=== PATIENT | male | born 1950 | race Two or more races ===

== ENCOUNTER 2020-07-30 06:29 | Outpatient (REF) | payer MEDICARE, SELFPAY ==
[2020-07-30 07:00] LABS: MANUAL DIFF FLAG NO
[2020-07-30 07:03] LABS: Basophils Percent Auto 0.5 % (0-2); Eosinophils Absolute Auto 0.3 X10*3/uL (0.0-0.4); Eosinophils Percent Auto 3.6 % (0-4); Hematocrit 38.8 % (42-52); Hemoglobin 12.6 g/dl (14.0-18.0); Imm Gran Abs Auto 0.01 X10*3/uL (0.00-0.03); Imm Gran Pct Auto 0.1 % (0.0-0.4); Lymphocytes Absolute Auto 2.8 X10*3/uL (1.2-4.9); Mean Corpuscular HGB Conc 32.5 g/dl (31.0-36.0); Mean Corpuscular Hemoglobin 27.8 pg (27.0-33.0); Mean Corpuscular Volume 85.7 fL (80-98); Mean Platelet Volume 11.2 fL (9.4-12.4); Monocytes Absolute Auto 0.9 X10*3/uL (0.1-1.2); Monocytes Percent Auto 11.9 % (2-11); Neutrophils Absolute Auto 3.7 X10*3/uL (2.0-8.3); Neutrophils Percent Auto 47.9 % (45-73); Platelet Count 292 X10*3/uL (160-400); Red Blood Count 4.53 X10*6/uL (4.60-5.80); White Blood Count 7.8 X10*3/uL (4.8-10.8)
[2020-07-30 07:38] LABS: Alanine Aminotransferase 19 U/L (0-40); Alkaline Phosphatase 104 U/L (39-117); Anion Gap 10 (12-20); Aspartate Amino Transferase 16 U/L (5-37); Bilirubin Total 0.4 mg/dL (0.0-1.0); Blood Urea Nitrogen 16 mg/dL (9-16); Calcium 9.2 mg/dL (8.4-10.2); Carbon Dioxide 27 mmol/L (22-29); Chloride 106 mmol/L (96-108); Cholesterol 119 mg/dL; Estimated Glomerular Filt Rate 53; Glucose Fasting 155 mg/dL (60-99); HDL Cholesterol 35 mg/dL; LDL Cholesterol Calculated 60 mg/dl; Potassium 4.2 mmol/l (3.3-5.1); Sodium 139 mmol/L (135-145); Total Protein 6.4 g/dL (6.5-8.0); Triglycerides 122 mg/dL
[2020-07-30 07:59] LABS: Creatinine Urine 168.19 mg/dL
== END 2020-07-30 06:30 | disposition home or self-care (01) ==
LOC: HO.LDS 06:29
PROVIDERS: PCP Internal Medicine; Visit Provider Internal Medicine
DX: E78.00 Pure hypercholesterolemia, unspecified (principal); E11.9 Type 2 diabetes mellitus without complications; J45.40 Moderate persistent asthma, uncomplicated
CPT/HCPCS: 36415; 80053; 80061; 82043; 85025

== ENCOUNTER 2020-09-11 20:55 | Emergency (ER) | payer MEDICARE, SELFPAY ==
[2020-09-11 20:59] VITALS: BP 186/86; PULSE 73; RESP 16; TEMP 36.5; O2SAT 98; BMI 30.2
--- NOTE | 2020-09-11 21:19 | ED.MALEGU ---
HPI - Male Genitourinary General Chief complaint: Urogenital-Male Stated complaint: Genital Discomfort Time Seen by Provider: 09/11/20 21:09 History of Present Illness HPI Narrative: Patient is a 70-year-old male presents today with having pain and itchiness in his penis the last few days. Patient is not sexually active. He does have a history of diabetes. He did not have a circumcision. Patient is from home. No fever no chills no cough no congestion no pain on urination or systemic complaints. Related Data Home Medications Medication Instructions Recorded Confirmed albuterol sulfate 90 mcg/actuation 1 puff INHALATION Q4H PRN g 08/06/20 08/06/20 aerosol inhaler atorvastatin 40 mg tablet 40 mg PO DAILY 08/06/20 08/06/20 fluticasone propionate 100 1 inh INHALATION BID 08/06/20 08/06/20 mcg/actuation blister powder for inhalation glipizide 5 mg tablet 10 mg PO BID tab 08/06/20 08/06/20 losartan 25 mg tablet 25 mg PO DAILY 08/06/20 08/06/20 metformin 500 mg tablet 500 mg PO BID 08/06/20 08/06/20 metoprolol succinate 100 mg 100 mg PO DAILY 08/06/20 08/06/20 tablet,extended release 24 hr Previous Rx's Medication Instructions Recorded insulin glargine U-300 conc 300 45 unit SUBCUT BID 30 Days #9 ml 08/24/20 unit/mL (3 mL) subcutaneous pen clotrimazole [Antifungal 1 applic TOPICAL BID 14 Days #15 g 09/11/20 (clotrimazole)] Allergies Allergy/AdvReac Type Severity Reaction Status Date / Time No Known Allergies Allergy Verified 08/06/20 10:40 [No Known Allergies*] Review of Systems Review of Systems: Constitutional: No Weight loss, No Fever, No Chills, No Night Sweats, No Fatigue, No Malaise ENT/Mouth: No Hearing loss, No Ear Pain, No Nasal Congestion, No Sinus Pain, No Hoarseness, No sore throat, No Rhinorrhea, No Swallowing Difficulty Eyes: No Eye Pain, No Swelling, No Redness, No Foreign Body, No Discharge, No Vision Changes Cardiovascular: No Chest Pain, No SOB, No Dyspnea on Exertion, No Orthopnea, No Edema, No Palpitations Respiratory: No Cough, No Sputum, No Wheezing, No Smoke Exposure, No Dyspnea Gastrointestinal: No Nausea, No Vomiting, No Diarrhea, No Constipation, No abdominal Pain, No Hematochezia, No Melena Genitourinary: no irregular bleeding, No Dysuria, No Urinary Frequency, No Hematuria, No Urinary Incontinence, No Urgency, No Flank Pain, No Urinary Flow Changes, No Hesitancy Musculoskeletal: No joint pain, No Myalgias, No Joint Swelling Skin: No Skin Lesions, No rash Neuro: No Weakness, No Numbness, No Paresthesias, No Loss of Consciousness, No Dizziness, No Headache Psych: No Anxiety/Panic, No Depression, No SI/HI/AH/VH, No Social Issues, Heme/Lymph: No Bruising, No Bleeding,No Lymphadenopathy Endocrine: No Polyuria, No Polydipsia, No Temperature Intolerance Yes all other systems are reviewed and are negative [facility] Past Medical History Attestation statement: The following information was validated with the patient. 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 Oriented X3. No acute distress. Eyes: Pupils equal, round and reactive to light. ENT: Pharynx normal. Neck: Normal inspection. Neck supple. No lymph nodes noted. No crepitus CVS: Normal heart rate and rhythm. Pulses normal. Normal S1 and S2 Respiratory: No respiratory distress. Breath sounds normal. No Wheezing. No rales Abdomen: Soft and nontender. No rigidity. No distention. good BS x4 Skin: Skin warm and dry. Normal skin color. Normal skin turgor. Extremities: No lower extremity edema. Neurovascular intact to all extremities. No Lacerations. No Rash Neuro: Oriented X 3. No motor deficit. No sensory deficit. Moving all extermities. No slurred speech : the skin around the penis is moist. With a whitish discharge. Unable to retract the foreskin completely. MDM - Male Genitourinary MDM Narrative Medical decision making narrative: Patient most likely have balance Perez secondary to being on circumcise and also diabetic. Will ask patient to clean the area well. Use Anti fungal cream. close follow-up with primary physician as needed Discharge Plan Discharge Clinical Impression: Balanitis Patient Disposition: Home, Self-Care Instructions: Balanitis (ED) Prescriptions: New clotrimazole [Antifungal (clotrimazole)] 1 % cream 1 applic topical BID 14 Days Qty: 15 RF: 0 No Action insulin glargine U-300 conc [Toujeo Max U-300 SoloStar] 300 unit/mL (3 mL) insulin pen 45 unit subcut BID 30 Days Qty: 9 RF: 11 glipizide 5 mg tablet 10 mg PO BID RF: 0 atorvastatin 40 mg tablet 40 mg PO DAILY RF: 0 metformin 500 mg tablet 500 mg PO BID RF: 0 metoprolol succinate 100 mg tablet extended release 24 hr 100 mg PO DAILY RF: 0 losartan 25 mg tablet 25 mg PO DAILY RF: 0 albuterol sulfate [Ventolin HFA] 90 mcg/actuation HFA aerosol inhaler 1 puff inhalation Q4H PRNRF: 0 Flovent Diskus 100 mcg/actuation blister with device 1 inh inhalation BID RF: 0 Referrals: Rose Mary Jones MD [Primary Care Provider] - 2 days Print Language: Nigerian
== END 2020-09-11 21:46 | disposition home or self-care (01) ==
PROVIDERS: Emergency Provider Emergency Medicine Emergency Medical Services; PCP Internal Medicine
DX: N48.1 Balanitis (principal); N50.819 Testicular pain, unspecified; Z79.899 Other long term (current) drug therapy; Z87.891 Personal history of nicotine dependence
CPT/HCPCS: 99283

== ENCOUNTER 2020-10-15 14:06 | Outpatient (REF) | payer MEDICARE, SELFPAY ==
--- NOTE | 2020-10-15 | US_ITS ---
EXAMINATION: US RETROPERITONEAL LIMITED (RENAL ONLY) CLINICAL INFORMATION: Chronic kidney disease stage III. COMPARISON: Abdominal ultrasound 04/19/2017. TECHNIQUE: Real-time imaging of the kidneys. FINDINGS: RIGHT KIDNEY: 11.5 x 5.3 x 5.7 cm (SAG x AP x TRV). The kidney is normal in size, contour, and echogenicity. Renal cortical thickness is normal. No renal calculi or hydronephrosis. There are several anechoic cysts seen. A lower pole lateral cortex cyst measures 1.7 x 1.5 x 1.5 cm. A midpole medial cyst measures 1.9 x 1.0 x 1.2 cm. A lateral midpole cyst measures 0.6 x 0.5 x 0.6 cm. LEFT KIDNEY: 10.3 x 4.8 x 5.4 cm (SAG x AP x TRV). The kidney is normal in size, contour, and echogenicity. Renal cortical thickness is normal. No renal calculi or hydronephrosis. There is anechoic cyst in the midpole measuring 1.5 x 1.2 x 1.0 cm. US/US renal BI IMPRESSION: 1. Bilateral renal cysts. 2. There are no echogenic bilateral stones or hydronephrosis.
== END 2020-10-15 14:07 | disposition home or self-care (01) ==
LOC: HO.US 14:06
PROVIDERS: Visit Provider Internal Medicine Hypertension Specialist
DX: N18.30 Chronic kidney disease, stage 3 unspecified (principal); R80.9 Proteinuria, unspecified
CPT/HCPCS: 76775

== ENCOUNTER 2020-10-23 08:12 | Outpatient (REF) | payer MEDICARE, SELFPAY ==
[2020-10-23 09:43] LABS: MANUAL DIFF FLAG NO
[2020-10-23 09:46] LABS: Creatinine, mg/dL 128.44; Protein mg/dL 17 mg/dL
[2020-10-23 10:05] LABS: Basophils Percent Auto 0.5 % (0-2); Eosinophils Absolute Auto 0.2 X10*3/uL (0.0-0.4); Eosinophils Percent Auto 2.2 % (0-4); Hematocrit 41.7 % (42-52); Hemoglobin 13.2 g/dl (14.0-18.0); Imm Gran Abs Auto 0.02 X10*3/uL (0.00-0.03); Imm Gran Pct Auto 0.3 % (0.0-0.4); Lymphocytes Absolute Auto 3.7 X10*3/uL (1.2-4.9); Lymphocytes Percent Auto 48.4 % (20-40); Mean Corpuscular HGB Conc 31.7 g/dl (31.0-36.0); Mean Corpuscular Hemoglobin 27.7 pg (27.0-33.0); Mean Corpuscular Volume 87.6 fL (80-98); Mean Platelet Volume 11.9 fL (9.4-12.4); Monocytes Absolute Auto 0.8 X10*3/uL (0.1-1.2); Monocytes Percent Auto 10.1 % (2-11); Neutrophils Absolute Auto 2.9 X10*3/uL (2.0-8.3); Neutrophils Percent Auto 38.5 % (45-73); Platelet Count 291 X10*3/uL (160-400); Red Blood Count 4.76 X10*6/uL (4.60-5.80); Red Cell Distribution Width 14.2 % (11.0-16.0); White Blood Count 7.6 X10*3/uL (4.8-10.8)
[2020-10-23 10:27] LABS: Glucose Urine UA 250 MG/DL (NEG); Leukocyte Esterase Urine NEG (NEG); Nitrite Urine NEG (NEG); Specific Gravity - Urine 1.015 (1.005-1.025); Urine Blood NEG (NEG); Urine Ketones NEG (NEG); Urine Protein NEG (NEG-TRACE)
[2020-10-23 10:36] LABS: Albumin Level 4.2 g/dL (3.5-5.0); Anion Gap 12 (12-20); Blood Urea Nitrogen 13 mg/dL (9-16); Calcium 9.6 mg/dL (8.4-10.2); Carbon Dioxide 27 mmol/L (22-29); Chloride 103 mmol/L (96-108); Estimated Glomerular Filt Rate 51; Potassium 4.9 mmol/l (3.3-5.1); Sodium 137 mmol/L (135-145)
[2020-10-23 10:45] LABS: Creatinine Urine 75.41 mg/dL; Protein/Creatinine Ratio, Ur 0.27 (<0.2); Total Protein Urine Random 20 mg/dL (<12)
[2020-10-23 10:46] LABS: Appearance Urine CLEAR; Color Urine YELLOW
[2020-10-23 13:03] LABS: Creatinine (CrCl) 1.38 mg/dL (0.5-1.4)
[2020-10-23 13:04] LABS: Creatinine Clearance 74.3 mL/min (85-125); Creatinine, 24Hr Urine 1.5 G/Day (1.0-2.0); Protein 24 Hr Urine 196 mg/Day (<150); Total Volume 24 Hour Urine 1150 mL
[2020-10-24 22:27] LABS: Urea, 24 Hr Urine 8 g/24 h (6-17)
[2020-10-27 14:08] LABS: Calcium (PTHI) 9.9 mg/dL (8.6-10.3); PTHI 71 pg/mL (14-64)
== END 2020-10-23 08:13 | disposition home or self-care (01) ==
LOC: HO.LAB 08:12
PROVIDERS: PCP Internal Medicine; Visit Provider Internal Medicine Hypertension Specialist
DX: I12.9 Hypertensive chronic kidney disease with stage 1 through stage 4 chronic kidney disease, or unspecified chronic kidney disease (principal); N18.30 Chronic kidney disease, stage 3 unspecified; R80.9 Proteinuria, unspecified
CPT/HCPCS: 36415; 80051; 81003; 82040; 82310; 82565; 82575; 83735; 83970; 84156; 84520; 84540; 85025

== ENCOUNTER 2020-12-02 06:00 | Outpatient (REF) | payer MEDICARE, SELFPAY ==
[2020-12-02 07:46] LABS: Creatinine Urine 129.54 mg/dL; Microalbum/Creatinine Ratio Ur 65.6 ug/mg cr
[2020-12-02 07:52] LABS: Alanine Aminotransferase 18 U/L (0-40); Alkaline Phosphatase 115 U/L (39-117); Anion Gap 15 (12-20); Aspartate Amino Transferase 16 U/L (5-37); Bilirubin Total 0.4 mg/dL (0.0-1.0); Blood Urea Nitrogen 17 mg/dL (9-16); Carbon Dioxide 25 mmol/L (22-29); Chloride 104 mmol/L (96-108); Cholesterol 138 mg/dL; Estimated Glomerular Filt Rate 54; Glucose Fasting 166 mg/dL (60-99); HDL Cholesterol 39 mg/dL; LDL Cholesterol Calculated 77 mg/dl; Potassium 4.7 mmol/L (3.3-5.1); Sodium 139 mmol/L (135-145); Total Protein 6.6 g/dL (6.5-8.0); Triglycerides 112 mg/dL
== END 2020-12-02 06:01 | disposition home or self-care (01) ==
LOC: HO.LAB 06:00
PROVIDERS: Visit Provider Internal Medicine
DX: R80.9 Proteinuria, unspecified (principal); E78.00 Pure hypercholesterolemia, unspecified; E11.29 Type 2 diabetes mellitus with other diabetic kidney complication; Z79.4 Long term (current) use of insulin
CPT/HCPCS: 36415; 80053; 80061; 82043

== ENCOUNTER 2021-04-01 06:26 | Outpatient (REF) | payer MEDICARE, SELFPAY ==
[2021-04-01 07:53] LABS: MANUAL DIFF FLAG NO
[2021-04-01 08:09] LABS: Estimated Average Glucose 235 mg/dL; Hemoglobin A1c % 9.8 %
[2021-04-01 08:11] LABS: Basophils Percent Auto 0.3 % (0-2); Eosinophils Absolute Auto 0.2 X10*3/uL (0.0-0.4); Eosinophils Percent Auto 3.7 % (0-4); Hematocrit 41.5 % (42-52); Hemoglobin 13.2 g/dl (14.0-18.0); Imm Gran Abs Auto 0.01 X10*3/uL (0.00-0.03); Imm Gran Pct Auto 0.2 % (0.0-0.4); Lymphocytes Absolute Auto 2.3 X10*3/uL (1.2-4.9); Lymphocytes Percent Auto 36.9 % (20-40); Mean Corpuscular HGB Conc 31.8 g/dl (31.0-36.0); Mean Corpuscular Hemoglobin 27.3 pg (27.0-33.0); Mean Corpuscular Volume 85.7 fL (80-98); Mean Platelet Volume 11.9 fL (9.4-12.4); Monocytes Absolute Auto 0.7 X10*3/uL (0.1-1.2); Monocytes Percent Auto 11.8 % (2-11); Neutrophils Percent Auto 47.1 % (45-73); Platelet Count 200 X10*3/uL (160-400); Red Blood Count 4.84 X10*6/uL (4.60-5.80); Red Cell Distribution Width 14.1 % (11.0-16.0); White Blood Count 6.3 X10*3/uL (4.8-10.8)
[2021-04-01 08:26] LABS: Creatinine Urine 165.54 mg/dL; Microalbum/Creatinine Ratio Ur 42.2 ug/mg cr
[2021-04-01 08:33] LABS: Alanine Aminotransferase 13 U/L (0-40); Albumin Level 4.1 g/dL (3.5-5.0); Alkaline Phosphatase 121 U/L (39-117); Anion Gap 10 (12-20); Aspartate Amino Transferase 15 U/L (5-37); Bilirubin Total 0.4 mg/dL (0.0-1.0); Blood Urea Nitrogen 20 mg/dL (9-16); Calcium 9.5 mg/dL (8.4-10.2); Carbon Dioxide 28 mmol/L (22-29); Chloride 106 mmol/L (96-108); Cholesterol 138 mg/dL; Estimated Glomerular Filt Rate 53; Glucose Fasting 122 mg/dL (60-99); HDL Cholesterol 42 mg/dL; LDL Cholesterol Calculated 71 mg/dl; Potassium 4.4 mmol/L (3.3-5.1); Sodium 140 mmol/L (135-145); Total Protein 6.6 g/dL (6.5-8.0); Triglycerides 127 mg/dL
[2021-04-02 09:52] LABS: Calcium, Ionized 5.1 mg/dL (4.8-5.6)
[2021-04-04 22:36] LABS: Parathyroid Hormone Related Pr 14 pg/mL (14-27)
== END 2021-04-01 06:27 | disposition home or self-care (01) ==
LOC: HO.LAB 06:26
PROVIDERS: Nurse Practitioner Family; PCP Internal Medicine; Visit Provider Internal Medicine
DX: Z00.00 Encounter for general adult medical examination without abnormal findings (principal); E21.3 Hyperparathyroidism, unspecified; E11.29 Type 2 diabetes mellitus with other diabetic kidney complication; E11.40 Type 2 diabetes mellitus with diabetic neuropathy, unspecified; R80.9 Proteinuria, unspecified; E78.5 Hyperlipidemia, unspecified; Z79.4 Long term (current) use of insulin
CPT/HCPCS: 36415; 80053; 80061; 82043; 82330; 83036; 83519; 85025

== ENCOUNTER 2021-08-31 07:29 | Outpatient (REF) | payer MEDICARE, SELFPAY ==
--- NOTE | ~2021-08-31 | US_ITS ---
EXAMINATION: US RETROPERITONEAL LIMITED (AORTA) CLINICAL INFORMATION: History of nicotine dependence.. COMPARISON: Abdominal ultrasound 04/19/[address] abdomen pelvis 05/05/2016 TECHNIQUE: Cervantes-scale, color Doppler and spectral Doppler evaluation of the abdominal aorta. FINDINGS: Scattered atherosclerotic disease. The measurements of the aorta in maximum AP and transverse dimensions respectively are as follows: Proximal: 2.3 x 2.4 cm. Mid: 2.1 x 1.9 cm. Distal: 1.5 x 1.8 cm. The measurements of the common iliac arteries in maximum AP and TRV dimensions are as follows: Right Common Iliac Artery: 1.1 x 1.3 cm. Left Common Iliac Artery: 1.2 x 1.0 cm. US/US abdominal aortic aneurysm IMPRESSION: Normal caliber abdominal aorta by sonographic evaluation.
== END 2021-08-31 07:30 | disposition home or self-care (01) ==
LOC: HO.US 07:29
PROVIDERS: PCP Internal Medicine; Visit Provider Internal Medicine
DX: Z87.891 Personal history of nicotine dependence (principal)
CPT/HCPCS: 76706

== ENCOUNTER 2021-11-15 18:09 | Emergency (ER) | payer MEDICARE, SELFPAY ==
--- NOTE | 2021-11-15 18:22 | ED.EAR ---
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 No fevers, chills, vomiting, headache, sore throat or runny nose. Related Data Home Medications Medication Instructions Recorded Confirmed albuterol sulfate 90 mcg/actuation 1 puff INHALATION Q4H PRN g 08/06/20 08/04/21 aerosol inhaler (Ventolin HFA) fluticasone propionate 100 1 inh INHALATION BID 08/06/20 08/04/21 mcg/actuation blister powder for inhalation (Flovent Diskus) glipizide 5 mg tablet 10 mg PO BID tab 08/06/20 08/04/21 Previous Rx's Medication Instructions Recorded clotrimazole 1 % topical cream 1 applic TOPICAL BID 14 Days #15 g 09/11/20 (Antifungal (clotrimazole)) blood sugar diagnostic (Accu-Chek 1 strip MISCELLANEOUS BID 90 Days 09/23/20 Faustina Plus test strp) #200 strip metformin 850 mg tablet 850 mg PO BID 90 Days #180 tab 12/08/20 atorvastatin 40 mg tablet 40 mg PO DAILY #90 tab 01/07/21 metoprolol succinate 100 mg 100 mg PO DAILY #90 tab 01/07/21 tablet,extended release 24 hr losartan 25 mg tablet 25 mg PO DAILY #90 tab 04/06/21 insulin glargine U-300 conc 300 48 unit (0.16 mL) SUBCUT BID 30 08/04/21 unit/mL (3 mL) subcutaneous pen Days #9.6 ml (Toujeo Max U-300 SoloStar) amoxicillin 875 mg-potassium 1 tab PO BID #14 tab 11/15/21 clavulanate 125 mg tablet (Augmentin) ciprofloxacin 0.3 %-dexamethasone 4 drp OTIC (EARS) BID 7 Days #7.5 11/15/21 0.1 % ear drops,suspension ml (Ciprodex) Allergies Allergy/AdvReac Type Severity Reaction Status Date / Time No Known Allergies Allergy Verified 08/04/21 09:15 [No Known Allergies*] Review of Systems Review of Systems: Yes all other systems are reviewed and are negative Constitutional: Constitutional: Reports no additional constitutional complaints, Denies body ache(s), Denies chills, Denies fever(s), Denies headache(s) and Denies weakness Eyes: Eyes: Reports no additional eye complaints and Denies change in vision ENT: Reports system reviewed and no additional complaints, except as documented, Denies dizziness, Reports ear discharge, Reports otalgia, Denies headache(s), Denies nasal congestion, Denies nasal discharge and Denies neck pain Cardiovascular: Cardiovascular: Reports no additional cardiovascular complaints, Denies chest pain, Denies leg edema and Denies dyspnea Respiratory: Respiratory: Reports no additional respiratory complaints, Denies cough and Denies dyspnea Gastrointestinal: Gastrointestinal: Reports no additional gastrointestinal complaints, Denies abdominal pain, Denies diarrhea, Denies nausea and Denies vomiting Genitourinary: Genitourinary: Denies urinary incontinence Musculoskeletal: Musculoskeletal: Reports no additional musculoskeletal complaints, Denies back pain, Denies arthralgias, Denies joint swelling, Denies neck pain, Denies numbness and Denies tingling Integumentary/Breasts: Skin/Breast: Reports system reviewed and no additional complaints, except as docu and Denies rash Neurologic: Reports system reviewed and no additional complaints, except as documented, Denies Abnormal speech present, Denies dizziness, Denies headache(s), Denies numbness, Denies tingling and Denies weakness PMFSH Past Medical History Attestation statement: The following information was validated with the patient. 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 Son No problems noted. Son No problems noted. Son No problems noted. Social History Social History Housing: House Alcohol intake: former Patient Tobacco Use Status: Former Tobacco user Tobacco use type: Cigarette e-Cigarette/Vaping Use: Never Used Second Hand Smoke Exposure: No Advance Directives Date on File: 07/30/20 service: No Current occupational status: retired Physical Exam Vital Signs: Vital Signs: Last Vital Signs Temp 98.4 F 11/15/21 18:24 Pulse 77 11/15/21 18:24 Resp 17 11/15/21 18:24 BP 182/78 H 11/15/21 18:24 Pulse Ox 98 11/15/21 18:24 BMI result Body Mass Index 29.1 Const: General: cooperative, healthy appearing, comfortable and no acute distress Orientation/consciousness: patient oriented x3 Limitations: no limitations HENMT: Head: Yes normal to inspection Ears: hearing grossly normal bilaterally, TM normal on the right, mastoids normal, no periauricular adenopathy, Abnormal EAC present (Erythema, swelling in the canal) and TM abnormal (Left TM with bulging,, loss of landmarks, effusion fusion) General nose exam: Normal external nose present Face and sinus: Yes normal facial exam Mouth: Normal oral and palatal mucosa present Throat: Yes posterior oropharynx normal Eyes: General: appearance normal, both eyes and all related structures Pupils: Equal, round and reactive pupils present Neck: Neck: Yes normal visual inspection, Yes full ROM, Yes no lymphadenopathy and Yes no meningeal signs Chest: Chest palpation & inspection: normal inspection of the chest Resp: Effort & Inspection: normal respiratory effort Auscultation: clear to auscultation bilaterally Cardio: Rate: regular rate Rhythm: regular rhythm Peripheral pulses: Peripheral pulses 2+ throughout GI: Inspection: Yes normal to inspection Palpation (GI): Soft to palpation and nontender Auscultation: normal bowel sounds Back/Spine/Pelvis: Thoracic/Lumbar Spine: thoracic and lumbar spine normal to inspection Skin: General skin exam: no rashes or lesions noted Neuro: General: patient oriented x3, no meningeal signs, no focal motor deficits and normal sensation to monofilament Cranial nerves: Yes Equal, round and reactive pupils present Cognition (Neuro): normal cognition Speech: No Abnormal speech present Gait exam (Neuro): Normal gait present Motor exam (neuro): 5/5 motor strength present throughout Extrem: General: Yes normal to inspection Course Course Course Narrative: 71-year-old male here with reports of left ear pain with drainage with waking. NO mastoid tenderness. No lymphadenopathy. Exam is consistent with both otitis externa and media. Will treat with course of antibiotics and antibiotic drops. Reviewed worrisome signs and symptoms when to return to the emergency department. Comfortable discharge home. MDM - Ear Differential Diagnosis Differential diagnosis: Likely otitis externa and otitis media Medical Records Attestation: I reviewed the patient's medical records. Lab Data Attestation: I reviewed the patient's lab results. Discharge Plan Discharge Clinical Impression: Otitis externa, Otitis media Patient Disposition: Home, Self-Care Instructions: Otitis Externa (ED), How to Use Ear Drops (ED), Ear Infection (ED) Additional Instructions: Return for fever, swelling or pain behind the ear Start antibiotics today When using the ear drops lay your head on the unaffected side and allow the drops to sit in ear for 15 minutes before sitting up Prescriptions: New amoxicillin-pot clavulanate [Augmentin] 875-125 mg tablet 1 tab PO BID Qty: 14 RF: 0 ciprofloxacin-dexamethasone [Ciprodex] 0.3-0.1 % drops,suspension 4 drp otic (ears) BID 7 Days Qty: 7.5 RF: 0 No Action blood sugar diagnostic [Accu-Chek Faustina Plus test strp] Strip 1 strip miscellaneous BID 90 Days Qty: 200 RF: 2 atorvastatin 40 mg tablet 40 mg PO DAILY Qty: 90 RF: 3 metoprolol succinate 100 mg tablet extended release 24 hr 100 mg PO DAILY Qty: 90 RF: 3 losartan 25 mg tablet 25 mg PO DAILY Qty: 90 RF: 3 clotrimazole [Antifungal (clotrimazole)] 1 % cream 1 applic topical BID 14 Days Qty: 15 RF: 0 glipizide 5 mg tablet 10 mg PO BID RF: 0 albuterol sulfate [Ventolin HFA] 90 mcg/actuation HFA aerosol inhaler 1 puff inhalation Q4H PRNRF: 0 Flovent Diskus 100 mcg/actuation blister with device 1 inh inhalation BID RF: 0 metformin 850 mg tablet 850 mg PO BID 90 Days Qty: 180 RF: 3 Toujeo Max U-300 SoloStar 300 unit/mL (3 mL) insulin pen 48 unit subcut BID 30 Days Qty: 9.6 RF: 11 Referrals: Rose Mary Jones MD [Primary Care Provider] - 2 days Print Language: Albanian
[2021-11-15 18:24] VITALS: BP 182/78; PULSE 77; RESP 17; TEMP 36.9; O2SAT 98; BMI 29.1
== END 2021-11-15 18:48 | disposition home or self-care (01) ==
LOC: HO.ED 18:46
PROVIDERS: Emergency Provider Internal Medicine; PCP Internal Medicine
DX: H66.92 Otitis media, unspecified, left ear (principal); H60.92 Unspecified otitis externa, left ear; Z87.891 Personal history of nicotine dependence; Z79.899 Other long term (current) drug therapy
CPT/HCPCS: 99283

== ENCOUNTER 2021-11-25 07:17 | Outpatient (REF) | payer MEDICARE, SELFPAY ==
[2021-11-25 07:39] LABS: MANUAL DIFF FLAG NO
[2021-11-25 08:02] LABS: Basophils Percent Auto 0.5 % (0-2); Eosinophils Absolute Auto 0.3 X10*3/uL (0.0-0.4); Eosinophils Percent Auto 4.3 % (0-4); Hematocrit 40.5 % (42.0-52.0); Hemoglobin 13.2 g/dl (14.0-18.0); Imm Gran Abs Auto 0.02 X10*3/uL (0.00-0.03); Imm Gran Pct Auto 0.3 % (0.0-0.4); Lymphocytes Absolute Auto 2.5 X10*3/uL (1.2-4.9); Lymphocytes Percent Auto 32.5 % (20-40); Mean Corpuscular HGB Conc 32.6 g/dl (31.0-36.0); Mean Corpuscular Hemoglobin 27.7 pg (27.0-33.0); Mean Corpuscular Volume 84.9 fL (80.0-98.0); Mean Platelet Volume 11.1 fL (9.4-12.4); Monocytes Absolute Auto 0.9 X10*3/uL (0.1-1.2); Monocytes Percent Auto 12.4 % (2-11); Neutrophils Absolute Auto 3.8 x10*3/uL (2.0-8.3); Platelet Count 293 X10*3/uL (160-400); Red Blood Count 4.77 X10*6/uL (4.60-5.80); Red Cell Distribution Width 13.8 % (11.0-16.0); White Blood Count 7.6 X10*3/uL (4.8-10.8)
[2021-11-25 08:40] LABS: Creatinine Urine 148.18 mg/dL; Microalbum/Creatinine Ratio Ur 103.9 ug/mg cr
[2021-11-25 09:00] LABS: Alanine Aminotransferase 15 U/L (0-40); Alkaline Phosphatase 116 U/L (39-117); Anion Gap 9 (12-20); Aspartate Amino Transferase 14 U/L (5-37); Bilirubin Total 0.5 mg/dL (0.0-1.0); Blood Urea Nitrogen 15 mg/dL (9-16); Carbon Dioxide 29 mmol/L (22-29); Chloride 106 mmol/L (96-108); Cholesterol 126 mg/dL; Estimated Glomerular Filt Rate 52; Glucose Fasting 205 mg/dL (60-99); HDL Cholesterol 35 mg/dL; Iron 50 mcg/dL (45-160); LDL Cholesterol Calculated 68 mg/dl; Percent Iron Saturation 19 % (15-50); Potassium 4.8 mmol/L (3.3-5.1); Sodium 139 mmol/L (135-145); Total Iron Binding Capacity 259 mcg/dL (228-428); Total Protein 6.5 g/dL (6.5-8.0); Triglycerides 117 mg/dL; Unsaturated Iron Binding 209 ug/dL
[2021-11-29 16:06] LABS: Vitamin D 25-OH, D2 <4 ng/mL; Vitamin D 25-OH, D3 22 ng/mL; Vitamin D 25-OH, Total 22 ng/mL (30-100)
== END 2021-11-25 07:18 | disposition home or self-care (01) ==
LOC: HO.LAB 07:17
PROVIDERS: PCP Internal Medicine; Visit Provider Internal Medicine
DX: E55.9 Vitamin D deficiency, unspecified (principal); E11.9 Type 2 diabetes mellitus without complications; E78.5 Hyperlipidemia, unspecified; D64.9 Anemia, unspecified; I25.10 Atherosclerotic heart disease of native coronary artery without angina pectoris
CPT/HCPCS: 36415; 80053; 80061; 82043; 82306; 83540; 85025

== ENCOUNTER 2021-12-22 16:39 | Emergency (ER) | payer MEDICARE, SELFPAY ==
--- NOTE | ~2021-12-22 | XR_ITS ---
EXAMINATION: PORTABLE CHEST 1 VIEW CLINICAL INFORMATION: cp . COMPARISON: 04/20/2017. TECHNIQUE: Portable frontal view of the chest was obtained. FINDINGS: The lungs are well expanded. No focal infiltrate, effusion, edema, or pneumothorax. Cardiac and mediastinal silhouettes are within normal limits for technique. Degenerative changes in the spine and shoulders. No acute bony abnormality seen. XR/XR chest 1V IMPRESSION: No evidence of acute disease.
[2021-12-22 16:48] VITALS: BP 191/93; PULSE 75; RESP 18; TEMP 36.8; O2SAT 98; BMI 28.4
--- NOTE | 2021-12-22 16:52 | ECG_ITS ---
Test Reason : chest pain Blood Pressure : / mmHG Vent. Rate : 076 BPM Atrial Rate : 076 BPM P-R Int : 146 ms QRS Dur : 086 ms QT Int : 358 ms P-R-T Axes : 046 013 076 degrees QTc Int : 402 ms Normal sinus rhythm Nonspecific T wave abnormality Cannot rule out inferior infarct Abnormal ECG When compared with ECG of 20-APR-2017 03:18, No significant change was found Referred By: Generic ED Physician Electronically Signed By:Catracho Valencia
[2021-12-22 17:14] LABS: MANUAL DIFF FLAG NO
[2021-12-22 17:17] LABS: Basophils Percent Auto 0.4 % (0-2); Eosinophils Absolute Auto 0.3 X10*3/uL (0.0-0.4); Eosinophils Percent Auto 2.3 % (0-4); Hematocrit 39.8 % (42.0-52.0); Imm Gran Abs Auto 0.02 X10*3/uL (0.00-0.03); Imm Gran Pct Auto 0.2 % (0.0-0.4); Lymphocytes Absolute Auto 2.8 X10*3/uL (1.2-4.9); Lymphocytes Percent Auto 26.5 % (20-40); Mean Corpuscular HGB Conc 32.7 g/dl (31.0-36.0); Mean Corpuscular Volume 85.6 fL (80.0-98.0); Mean Platelet Volume 10.9 fL (9.4-12.4); Monocytes Absolute Auto 0.9 X10*3/uL (0.1-1.2); Monocytes Percent Auto 8.7 % (2-11); Neutrophils Absolute Auto 6.6 x10*3/uL (2.0-8.3); Neutrophils Percent Auto 61.9 % (45-73); Platelet Count 281 X10*3/uL (160-400); Red Blood Count 4.65 X10*6/uL (4.60-5.80); Red Cell Distribution Width 14.2 % (11.0-16.0); White Blood Count 10.7 X10*3/uL (4.8-10.8)
[2021-12-22 17:35] LABS: COVID-19 Test Negative (Negative); IDNOW Serial# 16C4AD1C
[2021-12-22 17:35] LABS: IDNOW Serial# 55D5AD1C; Strep A Nucleic Acid Negative (Negative)
[2021-12-22 17:38] LABS: Alanine Aminotransferase 13 U/L (0-40); Albumin Level 3.9 g/dL (3.5-5.0); Alkaline Phosphatase 109 U/L (39-117); Anion Gap 10 (12-20); Aspartate Amino Transferase 14 U/L (5-37); Bilirubin Total 0.4 mg/dL (0.0-1.0); Blood Urea Nitrogen 13 mg/dL (9-16); Calcium 9.3 mg/dL (8.4-10.2); Carbon Dioxide 28 mmol/L (22-29); Chloride 104 mmol/L (96-108); Creatinine Clr Calc Pharmacy 44.5; Estimated Glomerular Filt Rate 48; Glucose Random 193 mg/dL (60-115); Sodium 138 mmol/L (135-145); Total Protein 6.5 g/dL (6.5-8.0)
[2021-12-22 17:46] LABS: Troponin-I High Sensitivity 6.9 ng/L (<3.5-35.0)
--- NOTE | 2021-12-22 17:48 | ED_ITS ---
HPI - Chest Pain General Chief Complaint: Chest Pain Stated Complaint: throat pain and breathing difficulties Time Seen by Provider: 12/22/21 17:46 Source: patient Mode of arrival: ambulatory Limitations: no limitations History of Present Illness HPI narrative: 71 years old male came in for sore throat and chest pain with breathing. Symptoms started since this morning with sore throat, and chest pain only with breathing, symptoms started at 10 a.m. and been constant since this morning, no recent travel, no lower extremity swelling or tenderness. Pain is not exertional, no other associated symptoms no fever, no chills, no coughing. Patient is known history of asthma, patient feels wheezing of the chest. Related Data Home Medications Medication Instructions Recorded Confirmed albuterol sulfate 90 mcg/actuation 1 puff INHALATION Q4H PRN g 08/06/20 12/15/21 aerosol inhaler (Ventolin HFA) fluticasone propionate 100 1 inh INHALATION BID 08/06/20 12/15/21 mcg/actuation blister powder for inhalation (Flovent Diskus) Previous Rx's Medication Instructions Recorded clotrimazole 1 % topical cream 1 applic TOPICAL BID 14 Days #15 g 09/11/20 (Antifungal (clotrimazole)) blood sugar diagnostic (Accu-Chek 1 strip MISCELLANEOUS BID 90 Days 09/23/20 Faustina Plus test strp) #200 strip atorvastatin 40 mg tablet 40 mg PO DAILY #90 tab 01/07/21 metoprolol succinate 100 mg 100 mg PO DAILY #90 tab 01/07/21 tablet,extended release 24 hr losartan 25 mg tablet 25 mg PO DAILY #90 tab 04/06/21 cholecalciferol (vitamin D3) 25 25 mcg PO DAILY 90 Days #90 cap 11/30/21 mcg (1,000 unit) capsule metformin 850 mg tablet 850 mg PO BID 90 Days #180 tab 12/08/21 blood sugar diagnostic (FreeStyle #50 ea 12/15/21 Lite Strips) blood-glucose meter (FreeStyle #1 ea 12/15/21 Lite Meter) gabapentin 100 mg capsule 100 mg PO BEDTIME 90 Days #90 cap 12/15/21 glipizide 10 mg tablet 10 mg PO QAM 90 Days #90 tab 12/15/21 insulin glargine U-300 conc 300 52 unit (0.1733 mL) SUBCUT BID 30 12/15/21 unit/mL (3 mL) subcutaneous pen Days #10.398 ml (Toujeo Max U-300 SoloStar) lancets 28 gauge (FreeStyle #100 ea 12/15/21 Lancets) prednisone 20 mg tablet 20 mg PO BID #8 tab 12/22/21 Allergies Allergy/AdvReac Type Severity Reaction Status Date / Time No Known Allergies Allergy Verified 12/22/21 16:48 [No Known Allergies*] Review of Systems Review of Systems: All other systems are reviewed and are negative Constitutional: Reports as per HPI and Reports no additional constitutional complaints Eyes: Reports as per HPI and Reports no additional eye complaints Reports system reviewed and no additional complaints, except as documented Cardiovascular: Reports as per HPI and Reports no additional cardiovascular complaints Respiratory: Reports as per HPI and Reports no additional respiratory complaints Gastrointestinal: Reports as per HPI and Reports no additional gastrointestinal complaints Genitourinary: Reports no additional female genitourinary complaints Musculoskeletal: Reports no additional musculoskeletal complaints Skin/Breast: Reports system reviewed and no additional complaints, except as docu Psychiatric: Reports no additional psychiatric complaints Endocrine: Reports no additional endocrine complaints Hematologic/Lymphatic: Reports no additional hematologic/lymphatic complaints Allergic/Immunologic: Reports no additional allergic/immunologic complaints Reports system reviewed and no additional complaints, except as documented and Reports Abnormal speech present [facility] Past Medical History Medical History Annual physical exam CAD (coronary artery disease) CKD (chronic kidney disease) stage 3, GFR 30-59 ml/min Diabetes mellitus Essential hypertension Former smoker Former smoker Hyperparathyroidism Hypovitaminosis 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 Son No problems noted. Son No problems noted. Son No problems noted. Social History Social History Housing: House Alcohol intake: former Patient Tobacco Use Status: Former Tobacco user Tobacco use type: Cigarette e-Cigarette/Vaping Use: Never Used Second Hand Smoke Exposure: No Advance Directives: No Advance Directives Information Provided: No Advance Directives Date on File: 07/30/20 service: No Current occupational status: retired Physical Exam Vital Signs: Vital Signs: Last Vital Signs Temp 98.2 F 12/22/21 20:19 Pulse 105 H 12/22/21 20:19 Resp 20 12/22/21 20:19 BP 157/74 H 12/22/21 20:19 Pulse Ox 95 12/22/21 20:19 BMI result Body Mass Index 28.4 Vital signs have been reviewed as appeared to be correct. Blood pressure elevated. Heart rate normal. Respiration rate normal. Temperature normal. Oxygen saturation normal. Appearance: Alert. Oriented X3. No acute distress. Head: Normal external exam. Normocephalic. Atraumatic. No Bravo signs noted. No raccoon eyes noted Eyes: PERRLA. EOMI. Conjunctiva and sclera normal. Eyelids normal. ENT: TM's Normal. Pharynx normal. Uvula midline. Moist mucous membranes. No trismus noted. No drooling noted. No muffled voice noted. Neck: Normal inspection. Neck supple. FROM. No adenopathy. Thyroid Normal. No meningeal signs. No neck mass noted. CVS: Normal heart rate and rhythm. Heart sound normal. No murmurs noted. Pulses normal throughout. Respiratory: No respiratory distress. Painless inspiration. Breath sounds normal. Diffuse mild expiratory wheezing, prolonged expiration. Chest nontender. No accessory muscle usage noted or decreased air movement noted. Abdomen: Soft and nontender. Bowel sounds normal in all 4 quadrants. No distention noted. No organomegaly noted. No visible injury noted. Back: No CVA tenderness. Full range of motion noted. Skin: Skin warm and dry. Normal skin color. Normal skin turgor. No rashes/lesions/lacerations noted. Extremities: No lower extremity edema. Extremities exhibit normal range of motion. Extremities nontender. Neuro: Oriented X 3. Cranial nerve exam: II-XII are grossly intact No motor deficit. No sensory deficit. Reflexes normal. Course Course Course Narrative: Assessment and plan. 71-year-old male came in with sore throat and chest pain with inspiration. Patient has unremarkable chest x-ray and labs, sore throat is negative for strep infection, troponin is negative x2, D-dimer is negative with low risk for PE. Patient reported improvement with bronchodilator and steroid. Discharge home with bronchodilator and prednisone for 4 days. MDM - Chest Pain Medical Records Data Attestation: I reviewed the patient's medical records. Lab Data Attestation: I reviewed the patient's lab results. Result diagrams: 12/22/21 17:02 12/22/21 17:02 Labs: Lab Results 12/22/21 12/22/21 12/22/21 Range/Units 17:02 17:02 17:02 WBC 10.7 (4.8-10.8) X10*3/uL RBC 4.65 (4.60-5.80) X10*6/uL Hgb 13.0 L (14.0-18.0) g/dl Hct 39.8 L (42.0-52.0) % MCV 85.6 (80.0-98.0) fL MCH 28.0 (27.0-33.0) pg MCHC 32.7 (31.0-36.0) g/dl RDW 14.2 (11.0-16.0) % Plt Count 281 (160-400) X10*3/uL MPV 10.9 (9.4-12.4) fL Immature Gran % (Auto) 0.2 (0.0-0.4) % Neut % (Auto) 61.9 (45-73) % Lymph % (Auto) 26.5 (20-40) % [place] % (Auto) 8.7 (2-11) % Eos % (Auto) 2.3 (0-4) % Baso % (Auto) 0.4 (0-2) % Lymph # (Auto) 2.8 (1.2-4.9) X10*3/uL [place] # (Auto) 0.9 (0.1-1.2) X10*3/uL Eos # (Auto) 0.3 (0.0-0.4) X10*3/uL Baso # (Auto) 0.0 (0.0-0.2) X10*3/uL Abs Immat Gran (auto) 0.02 (0.00-0.03) X10*3/uL Absolute Neuts (auto) 6.6 (2.0-8.3) x10*3/uL Absolute Nucleated RBC 0.000 (0.0-0.012) X10*3/uL Nucleated RBC % (auto) 0.0 (0.0-0.2) /100WBC D-Dimer High Sensitivty NG/ML Sodium 138 (135-145) mmol/L Potassium 4.0 (3.3-5.1) mmol/L Chloride 104 (96-108) mmol/L Carbon Dioxide 28 (22-29) mmol/L Anion Gap 10 L (12-20) BUN 13 (9-16) mg/dL Creatinine 1.46 H (0.5-1.4) mg/dL Estim Creat Clear Calc 44.5 Estimated GFR 48 Random Glucose 193 H (60-115) mg/dL Calcium 9.3 D (8.4-10.2) mg/dL Total Bilirubin 0.4 (0.0-1.0) mg/dL AST 14 (5-37) U/L ALT 13 (0-40) U/L Alkaline Phosphatase 109 (39-117) U/L Troponin I High Sens 6.9 (<3.5-35.0) ng/L Total Protein 6.5 (6.5-8.0) g/dL Albumin 3.9 (3.5-5.0) g/dL COVID-19 ([facility]) (Negative) COVID-19 Clin Com S. pyogenes GrpA TRACE (Negative) 12/22/21 12/22/21 12/22/21 Range/Units 17:06 17:07 19:54 WBC (4.8-10.8) X10*3/uL RBC (4.60-5.80) X10*6/uL Hgb (14.0-18.0) g/dl Hct (42.0-52.0) % MCV (80.0-98.0) fL MCH (27.0-33.0) pg MCHC (31.0-36.0) g/dl RDW (11.0-16.0) % Plt Count (160-400) X10*3/uL MPV (9.4-12.4) fL Immature Gran % (Auto) (0.0-0.4) % Neut % (Auto) (45-73) % Lymph % (Auto) (20-40) % [place] % (Auto) (2-11) % Eos % (Auto) (0-4) % Baso % (Auto) (0-2) % Lymph # (Auto) (1.2-4.9) X10*3/uL [place] # (Auto) (0.1-1.2) X10*3/uL Eos # (Auto) (0.0-0.4) X10*3/uL Baso # (Auto) (0.0-0.2) X10*3/uL Abs Immat Gran (auto) (0.00-0.03) X10*3/uL Absolute Neuts (auto) (2.0-8.3) x10*3/uL Absolute Nucleated RBC (0.0-0.012) X10*3/uL Nucleated RBC % (auto) (0.0-0.2) /100WBC D-Dimer High Sensitivty NG/ML Sodium (135-145) mmol/L Potassium (3.3-5.1) mmol/L Chloride (96-108) mmol/L Carbon Dioxide (22-29) mmol/L Anion Gap (12-20) BUN (9-16) mg/dL Creatinine (0.5-1.4) mg/dL Estim Creat Clear Calc Estimated GFR Random Glucose (60-115) mg/dL Calcium (8.4-10.2) mg/dL Total Bilirubin (0.0-1.0) mg/dL AST (5-37) U/L ALT (0-40) U/L Alkaline Phosphatase (39-117) U/L Troponin I High Sens (<3.5-35.0) ng/L Total Protein (6.5-8.0) g/dL Albumin (3.5-5.0) g/dL COVID-19 ([facility]) Negative (Negative) COVID-19 Clin Com See Note S. pyogenes GrpA TRACE Negative Negative (Negative) 12/22/21 12/22/21 Range/Units 19:58 19:58 WBC (4.8-10.8) X10*3/uL RBC (4.60-5.80) X10*6/uL Hgb (14.0-18.0) g/dl Hct (42.0-52.0) % MCV (80.0-98.0) fL MCH (27.0-33.0) pg MCHC (31.0-36.0) g/dl RDW (11.0-16.0) % Plt Count (160-400) X10*3/uL MPV (9.4-12.4) fL Immature Gran % (Auto) (0.0-0.4) % Neut % (Auto) (45-73) % Lymph % (Auto) (20-40) % [place] % (Auto) (2-11) % Eos % (Auto) (0-4) % Baso % (Auto) (0-2) % Lymph # (Auto) (1.2-4.9) X10*3/uL [place] # (Auto) (0.1-1.2) X10*3/uL Eos # (Auto) (0.0-0.4) X10*3/uL Baso # (Auto) (0.0-0.2) X10*3/uL Abs Immat Gran (auto) (0.00-0.03) X10*3/uL Absolute Neuts (auto) (2.0-8.3) x10*3/uL Absolute Nucleated RBC (0.0-0.012) X10*3/uL Nucleated RBC % (auto) (0.0-0.2) /100WBC D-Dimer High Sensitivty < 150 NG/ML Sodium (135-145) mmol/L Potassium (3.3-5.1) mmol/L Chloride (96-108) mmol/L Carbon Dioxide (22-29) mmol/L Anion Gap (12-20) BUN (9-16) mg/dL Creatinine (0.5-1.4) mg/dL Estim Creat Clear Calc Estimated GFR Random Glucose (60-115) mg/dL Calcium (8.4-10.2) mg/dL Total Bilirubin (0.0-1.0) mg/dL AST (5-37) U/L ALT (0-40) U/L Alkaline Phosphatase (39-117) U/L Troponin I High Sens 6.8 (<3.5-35.0) ng/L Total Protein (6.5-8.0) g/dL Albumin (3.5-5.0) g/dL COVID-19 ([facility]) (Negative) COVID-19 Clin Com S. pyogenes GrpA TRACE (Negative) Imaging Data Chest x-ray: Attestation: I personally reviewed and interpreted this imaging study as follows: Radiologist's impression: No acute pathology. ECG Data ECG #1: Attestation: I personally reviewed and interpreted this ECG as follows: Interpretation: Normal sinus rhythm at 76 beats per minutes, normal intervals, nonspecific T- wave flattening in V5-V6. Discharge Plan Discharge Clinical Impression: Asthma exacerbation Patient Disposition: Home, Self-Care Instructions: Asthma (ED) Prescriptions: New prednisone 20 mg tablet 20 mg PO BID Qty: 8 0RF No Action blood sugar diagnostic [Accu-Chek Faustina Plus test strp] Strip 1 strip miscellaneous BID 90 Days Qty: 200 2RF atorvastatin 40 mg tablet 40 mg PO DAILY Qty: 90 3RF metoprolol succinate 100 mg tablet extended release 24 hr 100 mg PO DAILY Qty: 90 3RF losartan 25 mg tablet 25 mg PO DAILY Qty: 90 3RF cholecalciferol (vitamin D3) 25 mcg (1,000 unit) capsule 25 mcg PO DAILY 90 Days Qty: 90 1RF metformin 850 mg tablet 850 mg PO BID 90 Days Qty: 180 3RF clotrimazole [Antifungal (clotrimazole)] 1 % cream 1 applic topical BID 14 Days Qty: 15 0RF albuterol sulfate [Ventolin HFA] 90 mcg/actuation HFA aerosol inhaler 1 puff inhalation Q4H PRN0RF Flovent Diskus 100 mcg/actuation blister with device 1 inh inhalation BID 0RF glipizide 10 mg tablet 10 mg PO QAM 90 Days Qty: 90 2RF Toujeo Max U-300 SoloStar 300 unit/mL (3 mL) insulin pen 52 unit subcut BID 30 Days Qty: 10.398 11RF (DME) blood-glucose meter [FreeStyle Lite Meter] Kit See Rx Instructions .Route Qty: 1 0RF Rx Instructions: As directed (DME) FreeStyle Lite Strips Strip See Rx Instructions .Route Qty: 50 6RF Rx Instructions: As directed (DME) lancets [FreeStyle Lancets] 28 gauge misc See Rx Instructions .Route Qty: 100 6RF Rx Instructions: As directed gabapentin 100 mg capsule 100 mg PO BEDTIME 90 Days Qty: 90 1RF Referrals: Rose Mary Jones MD [Primary Care Provider] - 2 days
[2021-12-22 18:03] VITALS: BP 148/80; PULSE 75; RESP 20; TEMP 36.8; O2SAT 97
[2021-12-22] MEDS: predniSONE 20 MG TABLET 40 MG PO (18:21)
[2021-12-22] MEDS: Albuterol/Iprat 2.5/0.5MG 3 ML AMPUL.NEB INHALE (18:25)
[2021-12-22] MEDS: Albuterol Sulfate (0.083%) 2.5 MG/3 ML VIAL.NEB 7.5 MG INHALE (18:25)
[2021-12-22 18:30] VITALS: PULSE 73; RESP 14; O2SAT 97
[2021-12-22 20:12] LABS: Strep A Nucleic Acid Negative (Negative)
[2021-12-22 20:15] LABS: D Dimer High Sensitivity < 150 NG/ML
[2021-12-22 20:19] VITALS: BP 157/74; PULSE 105; RESP 20; TEMP 36.8; O2SAT 95
[2021-12-22 20:23] LABS: Troponin-I High Sensitivity 6.8 ng/L (<3.5-35.0)
[2021-12-22 21:01] VITALS: BP 150/73; PULSE 101; RESP 20; TEMP 36.9; O2SAT 97
== END 2021-12-22 21:08 | disposition home or self-care (01) ==
PROVIDERS: Emergency Provider Emergency Medicine; PCP Internal Medicine
DX: J45.901 Unspecified asthma with (acute) exacerbation (principal); R06.02 Shortness of breath; Z20.822 Contact with and (suspected) exposure to COVID-19; Z87.891 Personal history of nicotine dependence; Z79.899 Other long term (current) drug therapy
CPT/HCPCS: 36415; 71045; 80053; 84484; 85025; 85379; 87635; 87651; 93005; 94640; 94644; 99283; 99284

== ENCOUNTER 2022-01-21 23:28 | Emergency (ER) | payer MEDICARE, SELFPAY ==
--- NOTE | 2022-01-21 | ECG_ITS ---
Test Reason : cp Blood Pressure : / mmHG Vent. Rate : 106 BPM Atrial Rate : 106 BPM P-R Int : 148 ms QRS Dur : 082 ms QT Int : 338 ms P-R-T Axes : 037 014 011 degrees QTc Int : 448 ms Sinus tachycardia Inferior infarct , age undetermined Abnormal ECG When compared with ECG of 22-DEC-2021 16:51, Nonspecific T wave abnormality now evident in Inferior leads Nonspecific T wave abnormality no longer evident in Lateral leads Referred By: Generic ED Physician Electronically Signed By:MARIANELA CARBAJAL
--- NOTE | ~2022-01-21 | XR_ITS ---
EXAMINATION: XR CHEST CLINICAL INFORMATION: Chest pain COMPARISON: 12/22/2021 TECHNIQUE: Frontal view of the chest was obtained. FINDINGS: Normal symmetric lung volumes. No parenchymal consolidation. No pleural effusion. No pneumothorax. Cardiomediastinal silhouette and pulmonary vascularity are within normal limits. No acute osseous abnormalities. XR/XR chest 1V IMPRESSION: No acute findings.
[2022-01-21 23:49] VITALS: BP 181/97; PULSE 116; RESP 20; TEMP 37.1; O2SAT 97; BMI 28.8
[2022-01-22 00:08] LABS: MANUAL DIFF FLAG NO
[2022-01-22 00:09] LABS: Basophils Percent Auto 0.3 % (0-2); Eosinophils Absolute Auto 0.1 X10*3/uL (0.0-0.4); Eosinophils Percent Auto 0.8 % (0-4); Hematocrit 40.8 % (42.0-52.0); Hemoglobin 13.2 g/dl (14.0-18.0); Imm Gran Abs Auto 0.06 X10*3/uL (0.00-0.03); Imm Gran Pct Auto 0.4 % (0.0-0.4); Lymphocytes Absolute Auto 2.7 X10*3/uL (1.2-4.9); Lymphocytes Percent Auto 17.2 % (20-40); Mean Corpuscular HGB Conc 32.4 g/dl (31.0-36.0); Mean Corpuscular Hemoglobin 27.7 pg (27.0-33.0); Mean Corpuscular Volume 85.7 fL (80.0-98.0); Mean Platelet Volume 10.7 fL (9.4-12.4); Monocytes Absolute Auto 1.4 X10*3/uL (0.1-1.2); Monocytes Percent Auto 8.9 % (2-11); Neutrophils Absolute Auto 11.3 x10*3/uL (2.0-8.3); Neutrophils Percent Auto 72.4 % (45-73); Platelet Count 327 X10*3/uL (160-400); Red Blood Count 4.76 X10*6/uL (4.60-5.80); Red Cell Distribution Width 14.2 % (11.0-16.0); White Blood Count 15.6 X10*3/uL (4.8-10.8)
[2022-01-22 00:31] LABS: Anion Gap 15 (12-20); Blood Urea Nitrogen 19 mg/dL (9-16); Calcium 10.2 mg/dL (8.4-10.2); Carbon Dioxide 25 mmol/L (22-29); Chloride 101 mmol/L (96-108); Creatinine Clr Calc Pharmacy 45.7; Estimated Glomerular Filt Rate 49; Glucose Random 299 mg/dL (60-115); Potassium 3.8 mmol/L (3.3-5.1); Sodium 137 mmol/L (135-145)
[2022-01-22 00:32] VITALS: BP 163/85; PULSE 102; RESP 18; O2SAT 96
[2022-01-22 00:37] LABS: Troponin-I High Sensitivity 8.9 ng/L (<3.5-35.0)
--- NOTE | 2022-01-22 01:59 | ED.GENADULT ---
HPI - General Adult General Chief complaint: General Medical Stated complaint: chest & throat pain, trouble breathing Time Seen by Provider: 01/22/22 00:05 Source: patient Mode of arrival: ambulatory History of Present Illness HPI narrative: 71-year-old male who presents with complaints of sore throat and inspiratory chest pain beginning today and denies any sick contacts. Patient states that he use and nebulized treatment which did not improve the discomfort. Otherwise, he denies any fever, chills, nausea, vomiting, abdominal pain or diarrhea and denies any chest pain /palpitations or shortness of breath. Related Data Previous Rx's Medication Instructions Recorded clotrimazole 1 % topical cream 1 applic TOPICAL BID 14 Days #15 g 09/11/20 (Antifungal (clotrimazole)) atorvastatin 40 mg tablet 40 mg PO DAILY #90 tab 01/07/21 losartan 25 mg tablet 25 mg PO DAILY #90 tab 04/06/21 cholecalciferol (vitamin D3) 25 25 mcg PO DAILY 90 Days #90 cap 11/30/21 mcg (1,000 unit) capsule metformin 850 mg tablet 850 mg PO BID 90 Days #180 tab 12/08/21 blood sugar diagnostic (FreeStyle #50 ea 12/15/21 Lite Strips) blood-glucose meter (FreeStyle #1 ea 12/15/21 Lite Meter) gabapentin 100 mg capsule 100 mg PO BEDTIME 90 Days #90 cap 12/15/21 glipizide 10 mg tablet 10 mg PO QAM 90 Days #90 tab 12/15/21 insulin glargine U-300 conc 300 52 unit (0.1733 mL) SUBCUT BID 30 12/15/21 unit/mL (3 mL) subcutaneous pen Days #10.398 ml (Toujeo Max U-300 SoloStar) lancets 28 gauge (FreeStyle #100 ea 12/15/21 Lancets) prednisone 20 mg tablet 20 mg PO BID #8 tab 12/22/21 albuterol sulfate 90 mcg/actuation 1 puff PO Q4H PRN 90 Days #54 ea 12/28/21 aerosol inhaler blood sugar diagnostic (Accu-Chek 1 strip MISCELLANEOUS BID 90 Days 12/28/21 Faustina Plus test strp) #200 strip fluticasone propionate 110 1 puff PO BID 30 Days #12 ea 12/28/21 mcg/actuation HFA aerosol inhaler (Flovent HFA) metoprolol succinate 100 mg 100 mg PO DAILY #90 tab 12/31/21 tablet,extended release 24 hr Allergies Allergy/AdvReac Type Severity Reaction Status Date / Time No Known Allergies Allergy Verified 12/22/21 16:48 [No Known Allergies*] Review of Systems Review of Systems: Pertinent positives and negatives as stated in HPI 10 point review of systems is otherwise negative. PMFSH Past Medical History Source: nursing notes reviewed Medical History Annual physical exam CAD (coronary artery disease) CKD (chronic kidney disease) stage 3, GFR 30-59 ml/min Diabetes mellitus Essential hypertension Former smoker Former smoker Hyperparathyroidism Hypovitaminosis D correction (current) use of insulin Microalbuminuria Moderate asthma Obese Pure hypercholesterolemia Surgical History History of lipoma Family History Family History Father Diabetes Mother Diabetes Son No problems noted. Son No problems noted. Son No problems noted. Son No problems noted. Social History Social History Housing: House Alcohol intake: former Patient Tobacco Use Status: Former Tobacco user Tobacco use type: Cigarette e-Cigarette/Vaping Use: Never Used Second Hand Smoke Exposure: No Advance Directives: No Advance Directives Information Provided: Yes Advance Directives Date on File: 07/30/20 service: No Current occupational status: retired Physical Exam ED Vital Signs: Vital Signs - 24 hr 01/21/22 23:49 01/22/22 00:32 01/22/22 02:08 Temperature 98.7 F 98.5 F Pulse Rate 116 H 102 H 92 Respiratory Rate 20 18 18 Blood Pressure 181/97 H 163/85 H 143/79 H Pulse Oximetry 97 96 96 BMI result Body Mass Index 28.8 VITAL SIGNS: Reviewed. GENERAL: Well developed, well nourished, in no acute distress. HEAD: Normocephalic/atraumatic EYES: PERRLA, EOMI EARS: Ext canals without abnormality, TMs non-bulging and non-erythematous NOSE: Nares patent bilateral OROPHARYNX: no oral lesions noted, posterior pharynx clear and non-erythematous without noted tonsillar enlargement/erythema/exudates NECK: Supple, no adenopathy LUNGS: Normal breath sounds, no tachypnea/wheeze/rhonchi /rales. SpO2<97> CARDIOVASCULAR: Regular rate and rhythm without noted murmurs, no JVD or lower extremity edema. ABDOMEN: Soft, non-tender, non-distended with bowel sounds. MUSCULOSKELETAL: No tenderness, deformities, or effusions noted on gross inspection. EXTREMITIES: No cyanosis, clubbing or edema. SKIN: Inspection of the skin reveals no rashes NEUROLOGIC: Alert and oriented x 4. Strength and sensation to light touch were grossly intact x 4. Course Course Course Narrative: 71-year-old male with history and clinical presentation suggestive of possible pharyngitis, but on clinical exam low clinical suspicion for asthma exacerbation. Review of all investigations negative for acute findings other than noted leukocytosis without left shift but no corresponding evidence to better elucidate the etiology such as pneumonia or stress response like nausea/vomiting. Patient denies any steroid use. And is otherwise discharged home with instructions to follow-up with his primary care provider on Tuesday morning unless his symptoms worsen. Medical Decision Making Lab Data Result diagrams: 01/22/22 00:03 01/22/22 00:03 Labs: Lab Results 01/22/22 01/22/22 01/22/22 Range/Units 00:03 00:03 00:03 WBC 15.6 H (4.8-10.8) X10*3/uL RBC 4.76 (4.60-5.80) X10*6/uL Hgb 13.2 L (14.0-18.0) g/dl Hct 40.8 L (42.0-52.0) % MCV 85.7 (80.0-98.0) fL MCH 27.7 (27.0-33.0) pg MCHC 32.4 (31.0-36.0) g/dl RDW 14.2 (11.0-16.0) % Plt Count 327 (160-400) X10*3/uL MPV 10.7 (9.4-12.4) fL Immature Gran % (Auto) 0.4 (0.0-0.4) % Neut % (Auto) 72.4 (45-73) % Lymph % (Auto) 17.2 L (20-40) % [place] % (Auto) 8.9 (2-11) % Eos % (Auto) 0.8 (0-4) % Baso % (Auto) 0.3 (0-2) % Lymph # (Auto) 2.7 (1.2-4.9) X10*3/uL [place] # (Auto) 1.4 H (0.1-1.2) X10*3/uL Eos # (Auto) 0.1 (0.0-0.4) X10*3/uL Baso # (Auto) 0.0 (0.0-0.2) X10*3/uL Abs Immat Gran (auto) 0.06 H (0.00-0.03) X10*3/uL Absolute Neuts (auto) 11.3 H (2.0-8.3) x10*3/uL Absolute Nucleated RBC 0.000 (0.0-0.012) X10*3/uL Nucleated RBC % (auto) 0.0 (0.0-0.2) /100WBC Sodium 137 (135-145) mmol/L Potassium 3.8 (3.3-5.1) mmol/L Chloride 101 (96-108) mmol/L Carbon Dioxide 25 (22-29) mmol/L Anion Gap 15 (12-20) BUN 19 H (9-16) mg/dL Creatinine 1.43 H (0.5-1.4) mg/dL Estim Creat Clear Calc 45.7 Estimated GFR 49 Random Glucose 299 H D (60-115) mg/dL Calcium 10.2 D (8.4-10.2) mg/dL Total Bilirubin 0.5 (0.0-1.0) mg/dL Direct Bilirubin 0.2 (0.0-0.5) mg/dL AST 18 (5-37) U/L ALT 17 (0-40) U/L Alkaline Phosphatase 117 (39-117) U/L Troponin I High Sens 8.9 (<3.5-35.0) ng/L B-Natriuretic Peptide 19 (<100) pg/mL Total Protein 6.8 (6.5-8.0) g/dL Albumin 4.2 (3.5-5.0) g/dL Lipase 40 (8-78) U/L COVID-19 ([facility]) (Negative) COVID-19 Clin Com S. pyogenes GrpA TRACE (Negative) 01/22/22 01/22/22 Range/Units 02:08 03:11 WBC (4.8-10.8) X10*3/uL RBC (4.60-5.80) X10*6/uL Hgb (14.0-18.0) g/dl Hct (42.0-52.0) % MCV (80.0-98.0) fL MCH (27.0-33.0) pg MCHC (31.0-36.0) g/dl RDW (11.0-16.0) % Plt Count (160-400) X10*3/uL MPV (9.4-12.4) fL Immature Gran % (Auto) (0.0-0.4) % Neut % (Auto) (45-73) % Lymph % (Auto) (20-40) % [place] % (Auto) (2-11) % Eos % (Auto) (0-4) % Baso % (Auto) (0-2) % Lymph # (Auto) (1.2-4.9) X10*3/uL [place] # (Auto) (0.1-1.2) X10*3/uL Eos # (Auto) (0.0-0.4) X10*3/uL Baso # (Auto) (0.0-0.2) X10*3/uL Abs Immat Gran (auto) (0.00-0.03) X10*3/uL Absolute Neuts (auto) (2.0-8.3) x10*3/uL Absolute Nucleated RBC (0.0-0.012) X10*3/uL Nucleated RBC % (auto) (0.0-0.2) /100WBC Sodium (135-145) mmol/L Potassium (3.3-5.1) mmol/L Chloride (96-108) mmol/L Carbon Dioxide (22-29) mmol/L Anion Gap (12-20) BUN (9-16) mg/dL Creatinine (0.5-1.4) mg/dL Estim Creat Clear Calc Estimated GFR Random Glucose (60-115) mg/dL Calcium (8.4-10.2) mg/dL Total Bilirubin (0.0-1.0) mg/dL Direct Bilirubin (0.0-0.5) mg/dL AST (5-37) U/L ALT (0-40) U/L Alkaline Phosphatase (39-117) U/L Troponin I High Sens (<3.5-35.0) ng/L B-Natriuretic Peptide (<100) pg/mL Total Protein (6.5-8.0) g/dL Albumin (3.5-5.0) g/dL Lipase (8-78) U/L COVID-19 ([facility]) Negative (Negative) COVID-19 Clin Com See Note S. pyogenes GrpA TRACE Negative (Negative) Discharge Plan Discharge Clinical Impression: Pharyngitis, Seasonal allergies, Asthma Patient Disposition: Home, Self-Care Instructions: Asthma (ED), Pharyngitis (ED), Allergies (ED), Fluticasone (Into the nose), Loratadine (By mouth) Additional Instructions: 1. Reanudar todos los medicamentos caseros seg?n lo prescrito. 2. Recomiende que comience a valente medicamentos para la alergia estacional de venta tayla. Por ejemplo, fluticasona ( Flonase ), Claritin ( loratadina ). 3. Calvin un seguimiento con arias proveedor de atenci?n primaria el lunes por la ma?rose mary. Regrese a la jose luis de emergencias si los s?ntomas empeoran. Prescriptions: No Action atorvastatin 40 mg tablet 40 mg PO DAILY Qty: 90 3RF losartan 25 mg tablet 25 mg PO DAILY Qty: 90 3RF cholecalciferol (vitamin D3) 25 mcg (1,000 unit) capsule 25 mcg PO DAILY 90 Days Qty: 90 1RF metformin 850 mg tablet 850 mg PO BID 90 Days Qty: 180 3RF albuterol sulfate 90 mcg/actuation HFA aerosol inhaler 1 puff PO Q4H PRN (Reason: bronchospasm) 90 Days Qty: 54 1RF Accu-Chek Faustina Plus test strp Strip 1 strip miscellaneous BID 90 Days Qty: 200 2RF Flovent HFA 110 mcg/actuation HFA aerosol inhaler 1 puff PO BID 30 Days Qty: 12 11RF metoprolol succinate 100 mg tablet extended release 24 hr 100 mg PO DAILY Qty: 90 3RF clotrimazole [Antifungal (clotrimazole)] 1 % cream 1 applic topical BID 14 Days Qty: 15 0RF prednisone 20 mg tablet 20 mg PO BID Qty: 8 0RF glipizide 10 mg tablet 10 mg PO QAM 90 Days Qty: 90 2RF Toujeo Max U-300 SoloStar 300 unit/mL (3 mL) insulin pen 52 unit subcut BID 30 Days Qty: 10.398 11RF (DME) blood-glucose meter [FreeStyle Lite Meter] Kit See Rx Instructions .Route Qty: 1 0RF Rx Instructions: As directed (DME) FreeStyle Lite Strips Strip See Rx Instructions .Route Qty: 50 6RF Rx Instructions: As directed (DME) lancets [FreeStyle Lancets] 28 gauge misc See Rx Instructions .Route Qty: 100 6RF Rx Instructions: As directed gabapentin 100 mg capsule 100 mg PO BEDTIME 90 Days Qty: 90 1RF Referrals: Rose Mary Jones MD [Primary Care Provider] - 2 days Print Language: Slovak
[2022-01-22 02:07] LABS: Alanine Aminotransferase 17 U/L (0-40); Albumin Level 4.2 g/dL (3.5-5.0); Alkaline Phosphatase 117 U/L (39-117); Aspartate Amino Transferase 18 U/L (5-37); Bilirubin Direct 0.2 mg/dL (0.0-0.5); Bilirubin Total 0.5 mg/dL (0.0-1.0); Lipase 40 U/L (8-78); Total Protein 6.8 g/dL (6.5-8.0)
[2022-01-22 02:08] VITALS: BP 143/79; PULSE 92; RESP 18; TEMP 36.9; O2SAT 96
[2022-01-22 02:11] LABS: B Type Natriuretic Peptide 19 pg/mL (<100)
[2022-01-22 02:31] LABS: COVID-19 Test Negative (Negative)
[2022-01-22 03:25] LABS: Strep A Nucleic Acid Negative (Negative)
[2022-01-22 04:08] VITALS: BP 162/87; PULSE 91; RESP 16; O2SAT 96
[2022-01-22] MEDS: Albuterol Sulfate 90 MCG 8 GM INHALER 4 PUFF INHALE (04:13)
== END 2022-01-22 04:14 | disposition home or self-care (01) ==
PROVIDERS: Emergency Provider Student in an Organized Health Care Education/Training Program; PCP Internal Medicine
DX: J02.9 Acute pharyngitis, unspecified (principal); J30.2 Other seasonal allergic rhinitis; J45.909 Unspecified asthma, uncomplicated; Z20.822 Contact with and (suspected) exposure to COVID-19; E11.22 Type 2 diabetes mellitus with diabetic chronic kidney disease; I12.9 Hypertensive chronic kidney disease with stage 1 through stage 4 chronic kidney disease, or unspecified chronic kidney disease; N18.30 Chronic kidney disease, stage 3 unspecified; E78.5 Hyperlipidemia, unspecified; Z79.4 Long term (current) use of insulin; Z79.02 Long term (current) use of antithrombotics/antiplatelets
CPT/HCPCS: 36415; 71045; 80048; 80076; 83690; 83880; 84484; 85025; 87635; 87651; 93005; 99284

== ENCOUNTER 2022-03-30 06:07 | Outpatient (REF) | payer OTHER, SELFPAY ==
[2022-03-30 07:44] LABS: Creatinine Urine 107.33 mg/dL; Microalbum/Creatinine Ratio Ur 76.3 ug/mg cr
[2022-03-30 07:46] LABS: Alanine Aminotransferase 24 U/L (0-40); Albumin Level 4.2 g/dL (3.5-5.0); Alkaline Phosphatase 115 U/L (39-117); Anion Gap 11 (12-20); Aspartate Amino Transferase 19 U/L (5-37); Bilirubin Total 0.5 mg/dL (0.0-1.0); Blood Urea Nitrogen 16 mg/dL (9-16); Calcium 9.4 mg/dL (8.4-10.2); Carbon Dioxide 27 mmol/L (22-29); Chloride 106 mmol/L (96-108); Cholesterol 133 mg/dL; Estimated Glomerular Filt Rate 53; Glucose Fasting 116 mg/dL (60-99); HDL Cholesterol 37 mg/dL; LDL Cholesterol Calculated 66 mg/dl; Potassium 4.9 mmol/L (3.3-5.1); Sodium 139 mmol/L (135-145); Total Protein 6.7 g/dL (6.5-8.0); Triglycerides 150 mg/dL
[2022-03-30 08:29] LABS: Estimated Average Glucose 229 mg/dL; Hemoglobin A1c % 9.6 %
[2022-04-03 13:11] LABS: Vitamin D 25-OH, D2 <4 ng/mL; Vitamin D 25-OH, D3 27 ng/mL; Vitamin D 25-OH, Total 27 ng/mL (30-100)
== END 2022-03-30 06:08 | disposition home or self-care (01) ==
LOC: HO.LAB 06:07
PROVIDERS: Nurse Practitioner Family; PCP Internal Medicine; Visit Provider Internal Medicine
DX: Z00.00 Encounter for general adult medical examination without abnormal findings (principal); E78.5 Hyperlipidemia, unspecified; E55.9 Vitamin D deficiency, unspecified; E11.29 Type 2 diabetes mellitus with other diabetic kidney complication; R80.9 Proteinuria, unspecified; Z79.4 Long term (current) use of insulin
CPT/HCPCS: 36415; 80053; 80061; 82043; 82306; 83036

== ENCOUNTER 2022-04-22 05:34 | Emergency (ER) | payer OTHER, SELFPAY ==
[2022-04-22 05:58] VITALS: BP 175/74; PULSE 63; RESP 15; TEMP 36.6; O2SAT 98; BMI 29.6
[2022-04-22 06:01] VITALS: PULSE 62; RESP 15; O2SAT 98
--- NOTE | 2022-04-22 06:37 | ED.EAR ---
HPI - Ear Problem General Chief complaint: Ear Problems Stated complaint: L side facial pain Time Seen by Provider: 04/22/22 06:37 Source: patient Mode of arrival: ambulatory Limitations: no limitations History of Present Illness MD Complaint: ear pain Location: left ear Duration: constant Severity: mild Relieving factors: nothing Exacerbating factors: chewing and position of head Context: other (AOM 1 year ago ) Discharge from ear: no Associated symptoms ear: decreased hearing and headache Treatment prior to arrival: none Related Data Previous Rx's Medication Instructions Recorded clotrimazole 1 % topical cream 1 applic topical BID 2 weeks #15 09/11/20 (Antifungal (clotrimazole)) grams cholecalciferol (vitamin D3) 25 25 mcg PO DAILY 90 days #90 caps 11/30/21 mcg (1,000 unit) capsule blood sugar diagnostic (FreeStyle #50 ea 12/15/21 Lite Strips) blood-glucose meter (FreeStyle #1 ea 12/15/21 Lite Meter) gabapentin 100 mg capsule 100 mg PO BEDTIME 90 days #90 caps 12/15/21 glipizide 10 mg tablet 10 mg PO QAM 90 days #90 tabs 12/15/21 lancets 28 gauge (FreeStyle #100 ea 12/15/21 Lancets) albuterol sulfate 90 mcg/actuation 1 puff PO Q4H PRN bronchospasm 90 12/28/21 aerosol inhaler days #54 ea blood sugar diagnostic (Accu-Chek 1 strip miscellaneous BID 90 days 12/28/21 Faustina Plus test strp) #200 strips fluticasone propionate 110 1 puff PO BID 30 days #12 ea 12/28/21 mcg/actuation HFA aerosol inhaler (Flovent HFA) metoprolol succinate 100 mg 100 mg PO DAILY #90 tabs 12/31/21 tablet,extended release 24 hr atorvastatin 40 mg tablet 40 mg PO DAILY #90 tabs 02/18/22 insulin glargine U-300 conc 300 56 unit (0.1867 mL) subcut BID 30 04/01/22 unit/mL (3 mL) subcutaneous pen days #11.202 mL (Toujeo Max U-300 SoloStar) metformin 500 mg tablet 500 mg PO BID 90 days #180 tabs 04/01/22 terbinafine HCl 250 mg tablet 250 mg PO DAILY 90 days #90 tabs 04/01/22 losartan 25 mg tablet 25 mg PO DAILY #90 tabs 04/04/22 amoxicillin 500 mg tablet 500 mg PO TID 7 days #21 tabs 04/22/22 Allergies Allergy/AdvReac Type Severity Reaction Status Date / Time No Known Allergies Allergy Verified 04/01/22 10:17 [No Known Allergies*] Review of Systems Review of Systems: Constitutional : no Fever, No Chills ENT/Mouth : No sore throat, No Rhinorrhea, pos ear pain Eyes: No Eye Pain, No Swelling, No Redness Cardiovascular : No Chest Pain, No SOB Respiratory : No Cough, No Sputum, No Wheezing Gastrointestinal : No Nausea, No Vomiting, No Diarrhea Genitourinary : No Dysuria, No Urinary Frequency, No Hematuria, Musculoskeletal : No joint pain, No Myalgias Neuro : No Weakness, No Numbness, No Dizziness, pos Headache PMFSH Past Medical History Medical History Annual physical exam CAD (coronary artery disease) CKD (chronic kidney disease) stage 3, GFR 30-59 ml/min Diabetes mellitus Essential hypertension Former smoker Former smoker Hyperparathyroidism Hypovitaminosis 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 Son No problems noted. Son No problems noted. Son No problems noted. Social History Social History Housing: House Alcohol intake: former Patient Tobacco Use Status: Former Tobacco user Tobacco use type: Cigarette e-Cigarette/Vaping Use: Never Used Second Hand Smoke Exposure: No Advance Directives: No Advance Directives Date on File: 07/30/20 service: No Current occupational status: retired Cognitive needs: No Hearing needs: No Vision needs: No Physical Exam Vital Signs: Vital Signs: Last Vital Signs Temp 98 F 04/22/22 05:58 Pulse 62 04/22/22 06:01 Resp 15 04/22/22 06:01 BP 175/74 H 04/22/22 05:58 Pulse Ox 98 04/22/22 06:01 O2 Del Method 04/22/22 06:01 BMI result Body Mass Index 29.6 Appearance: Alert. Oriented X3. No acute distress. Eyes: Pupils equal, round and reactive to light. ENT: Pharynx normal. L ear bulging TM with moderate erythema and effusion no perforation seen external appearance normal no mastoid ttp no swelling no external ttp Neck: Normal inspection. Neck supple. CVS: Pulses normal. Respiratory: No respiratory distress. Abdomen: Soft and nontender. Skin: Skin warm and dry. Normal skin color. Extremities: No lower extremity edema. Neuro: Oriented X 3. No motor deficit. No sensory deficit. MDM - Ear MDM Narrative Medical decision making narrative: 71 yo male hx CKD, HLD, HTN, DM, with hx of L sided AOM 1 year ago comes in with L sided AOM no evidence of deeper infection will start on amoxicillin and refer to PCP if it does not improve Discharge Plan Discharge Clinical Impression: Otitis media Qualifiers: Otitis media type: suppurative Chronicity: acute Laterality: left Spontaneous tympanic membrane rupture: without spontaneous rupture Patient Disposition: Home, Self-Care Instructions: Ear Infection (ED) Additional Instructions: return to ED for any worsening symptoms or concerns Prescriptions: New amoxicillin 500 mg tablet 500 mg PO TID 7 Days Qty: 21 0RF No Action cholecalciferol (vitamin D3) 25 mcg (1,000 unit) capsule 25 mcg PO DAILY 90 Days Qty: 90 1RF albuterol sulfate 90 mcg/actuation HFA aerosol inhaler 1 puff PO Q4H PRN (Reason: bronchospasm) 90 Days Qty: 54 1RF Accu-Chek Faustina Plus test strp Strip 1 strip miscellaneous BID 90 Days Qty: 200 2RF Flovent HFA 110 mcg/actuation HFA aerosol inhaler 1 puff PO BID 30 Days Qty: 12 11RF metoprolol succinate 100 mg tablet extended release 24 hr 100 mg PO DAILY Qty: 90 3RF atorvastatin 40 mg tablet 40 mg PO DAILY Qty: 90 3RF losartan 25 mg tablet 25 mg PO DAILY Qty: 90 3RF clotrimazole [Antifungal (clotrimazole)] 1 % cream 1 applic topical BID 14 Days Qty: 15 0RF glipizide 10 mg tablet 10 mg PO QAM 90 Days Qty: 90 2RF (DME) blood-glucose meter [FreeStyle Lite Meter] Kit See Rx Instructions .Route Qty: 1 0RF Rx Instructions: As directed (DME) FreeStyle Lite Strips Strip See Rx Instructions .Route Qty: 50 6RF Rx Instructions: As directed (DME) lancets [FreeStyle Lancets] 28 gauge misc See Rx Instructions .Route Qty: 100 6RF Rx Instructions: As directed gabapentin 100 mg capsule 100 mg PO BEDTIME 90 Days Qty: 90 1RF metformin 500 mg tablet 500 mg PO BID 90 Days Qty: 180 3RF Toujeo Max U-300 SoloStar 300 unit/mL (3 mL) insulin pen 56 unit subcut BID 30 Days Qty: 11.202 11RF terbinafine HCl 250 mg tablet 250 mg PO DAILY 90 Days Qty: 90 0RF Referrals: Rose Mary Jones MD [Primary Care Provider] - 2 days (if not better)
[2022-04-22] MEDS: Amoxicillin 500 MG CAPSULE PO (07:09)
== END 2022-04-22 07:09 | disposition home or self-care (01) ==
PROVIDERS: Emergency Provider Emergency Medicine; PCP Internal Medicine
DX: H66.002 Acute suppurative otitis media without spontaneous rupture of ear drum, left ear (principal); H92.02 Otalgia, left ear; E11.22 Type 2 diabetes mellitus with diabetic chronic kidney disease; I12.9 Hypertensive chronic kidney disease with stage 1 through stage 4 chronic kidney disease, or unspecified chronic kidney disease; N18.30 Chronic kidney disease, stage 3 unspecified; E78.00 Pure hypercholesterolemia, unspecified; Z79.4 Long term (current) use of insulin; Z79.02 Long term (current) use of antithrombotics/antiplatelets; Z87.891 Personal history of nicotine dependence
CPT/HCPCS: 99283; 99284

== ENCOUNTER 2022-04-23 21:37 | Emergency (ER) | payer OTHER, SELFPAY ==
--- NOTE | ~2022-04-23 | CT_ITS ---
EXAMINATION: CT MASTOID CLINICAL INFORMATION: Left-sided mastoid tenderness COMPARISON: None. TECHNIQUE: Multidetector volumetric imaging of the mastoid bones performed without IV contrast. Coronal and sagittal reformatted images are obtained and reviewed. This CT examination was performed using dose optimization techniques as appropriate, variously including the following: *Automated exposure control *Adjustment of mA and/or kV according to patient size (this includes techniques or standardized protocols for targeted exams where dose is matched to indication/reason for exam; i.e. extremities or head) *Use of iterative reconstruction technique DLP: 259 mGy-cm FINDINGS: The external auditory canals and tympanic membranes are normal. The ossicular chains are intact bilaterally. No osseous erosion is seen. No soft tissue abnormality is seen in the middle ear cavities. The mastoid air cells are underpneumatized. The mastoid air cells which are present are well aerated. The inner ear structures and internal auditory canals are normal. The visualized paranasal sinuses are clear. CT/CT mastoid IMPRESSION: Under pneumatized mastoid air cells, which appear aerated. No gross abnormality of the middle ear structures. Of note, this study will receive a neuroradiologist over read in the morning.
[2022-04-23 22:42] VITALS: BP 158/83; PULSE 71; RESP 18; TEMP 36.5; O2SAT 98; BMI 29.6
--- NOTE | 2022-04-24 00:01 | ED_ITS ---
HPI - General Adult General Chief complaint: General Medical Stated complaint: ear infection, high blood pressure Time Seen by Provider: 04/23/22 23:54 Source: patient Mode of arrival: ambulatory Limitations: no limitations History of Present Illness HPI narrative: This is a 71-year-old male past medical history significant for CKD, hyperlipidemia, hypertension, diabetes presents to the emergency department with complaints of left-sided ear pain times a week, worsening. He tells me his pain is unchanged from yesterday and now i having slight discomfort to right ear and behind left ear. Patient tells me was seen here yesterday prescribed on antibiotics however if he he feels as though it is not getting better. He is also concerned as blood pressure has been higher than normal at home, he tells me his systolic has been in the high 190s and diastolic has been in the 90s, this has been higher than his usual. Denies fevers, chills, chest pain, shortness of breath, nausea, vomiting, sore throat. Onset (ago): week(s) (1) Related Data Previous Rx's Medication Instructions Recorded clotrimazole 1 % topical cream 1 applic topical BID 2 weeks #15 09/11/20 (Antifungal (clotrimazole)) grams cholecalciferol (vitamin D3) 25 25 mcg PO DAILY 90 days #90 caps 11/30/21 mcg (1,000 unit) capsule blood sugar diagnostic (FreeStyle #50 ea 12/15/21 Lite Strips) blood-glucose meter (FreeStyle #1 ea 12/15/21 Lite Meter) gabapentin 100 mg capsule 100 mg PO BEDTIME 90 days #90 caps 12/15/21 glipizide 10 mg tablet 10 mg PO QAM 90 days #90 tabs 12/15/21 lancets 28 gauge (FreeStyle #100 ea 12/15/21 Lancets) albuterol sulfate 90 mcg/actuation 1 puff PO Q4H PRN bronchospasm 90 12/28/21 aerosol inhaler days #54 ea blood sugar diagnostic (Accu-Chek 1 strip miscellaneous BID 90 days 12/28/21 Faustina Plus test strp) #200 strips fluticasone propionate 110 1 puff PO BID 30 days #12 ea 12/28/21 mcg/actuation HFA aerosol inhaler (Flovent HFA) metoprolol succinate 100 mg 100 mg PO DAILY #90 tabs 12/31/21 tablet,extended release 24 hr atorvastatin 40 mg tablet 40 mg PO DAILY #90 tabs 02/18/22 insulin glargine U-300 conc 300 56 unit (0.1867 mL) subcut BID 30 04/01/22 unit/mL (3 mL) subcutaneous pen days #11.202 mL (Toujeo Max U-300 SoloStar) metformin 500 mg tablet 500 mg PO BID 90 days #180 tabs 04/01/22 terbinafine HCl 250 mg tablet 250 mg PO DAILY 90 days #90 tabs 04/01/22 losartan 25 mg tablet 25 mg PO DAILY #90 tabs 04/04/22 amoxicillin 500 mg tablet 500 mg PO TID 7 days #21 tabs 04/22/22 ciprofloxacin 0.3 %-dexamethasone 4 drp otic (ears) BID 7 days #7.5 04/24/22 0.1 % ear drops,suspension mL (Ciprodex) prednisone 20 mg tablet 20 mg PO DAILY 5 days #5 tabs 04/24/22 Allergies Allergy/AdvReac Type Severity Reaction Status Date / Time No Known Allergies Allergy Verified 04/23/22 22:46 [No Known Allergies*] Review of Systems Review of Systems: Constitutional : No Weight loss, No Fever, No Chills, No Fatigue, No Malaise ENT/Mouth : No sore throat, No Rhinorrhea, + left ear pain Eyes: No Eye Pain, No Swelling, No Redness Cardiovascular : No Chest Pain, No SOB, No Dyspnea on Exertion, No Orthopnea, No Edema, No Palpitations Respiratory : No Cough, No Sputum, No Wheezing Gastrointestinal : No Nausea, No Vomiting, No Diarrhea, No Constipation, No abdominal Pain, No Hematochezia, No Melena Genitourinary : No Dysuria, No Urinary Frequency, No Hematuria, Musculoskeletal : No joint pain, No Myalgias, No Joint Swelling Skin : No Skin Lesions, No rash Neuro : No Weakness, No Numbness, No Dizziness, No Headache All other systems reviewed and are negative Yes all other systems are reviewed and are negative [facility] Past Medical History Attestation statement: The following information was validated with the patient. 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 Son No problems noted. Son No problems noted. Son No problems noted. Social History Social History Housing: House Alcohol intake: former Patient Tobacco Use Status: Former Tobacco user Tobacco use type: Cigarette e-Cigarette/Vaping Use: Never Used Second Hand Smoke Exposure: No Advance Directives: No Advance Directives Information Provided: Yes Advance Directives Date on File: 07/30/20 service: No Current occupational status: retired Cognitive needs: No Hearing needs: No Vision needs: No Physical Exam ED Vital Signs: Vital Signs - 24 hr 04/23/22 22:42 04/24/22 01:52 Temperature 97.7 F 98.7 F Pulse Rate 71 74 Respiratory Rate 18 16 Blood Pressure 158/83 H 154/78 H Pulse Oximetry 98 98 Oxygen Delivery Method Room Air Room Air BMI result Body Mass Index 29.6 Vital signs stable. Appearance: Alert.? Oriented X3.? No acute distress.? Head: Normocephalic, atraumatic, no step-offs or deformities Eyes: Pupils equal, round and reactive to light.? ENT: Pharynx normal.??b/l ear bulging TM with moderate erythema and effusion no perforation seen? external appearance normal + mastoid ttp to left?. No swelling no external ttp b/l. Neck: Normal inspection.? Neck supple.? CVS: Normal heart rate and rhythm.? Pulses normal.? Respiratory: No respiratory distress.? Breath sounds normal.? Abdomen: Soft and nontender.? Skin: Skin warm and dry.? Normal skin color.? Normal skin turgor.? Extremities: No lower extremity edema.? No calf ttp. 5/5 strength to bilateral upper and lower extremities Back: No midline tenderness, no C-spine tenderness, full range of motion, no CVA tenderness bilaterally Neuro: Oriented X 3.? No motor deficit.? No sensory deficit. CN 2-12 intact Course Course Course Narrative: Disscused Ct of mastoid w/ , very low suspicion for mastroidits. Reevaluation(s) Reevaluation #1: CT of the mastoid region without mastoiditis. Prescribe Ciprodex drops, advised patient to continue amoxicillin and prescribed a short dose of prednisone. At this time patient will be discharged home with PCP follow-up. Have also given him follow-up for ENT advised him to call and make an appointment them as soon as possible. Time: 01:54 Medical Decision Making MDM Narrative Medical decision making narrative: 0004 72-year-old male presents with left-sided ear pain times a week worsening. In concerns for hypertension at home. Upon chart review it appears as though patient was diagnosed yesterday with acute otitis media and was started on amoxicillin yesterday. History and physical examination consistent with otitis media b/l. No signs of otitis externa, will r/o mastoiditis due to tenderness on left mastroid region however giuliano Educated patient on his blood pressure, advised to check in Tuesday, Tuesday and Tuesday and should these blood pressure readings with his primary care provider, nothing to be done acute setting at this time. plan Ct of mastoid Medical Records Medical records reviewed: Yes I reviewed the patient's medical records. Lab Data Lab results reviewed: Yes I reviewed the patient's lab results. Critical Care Time Critical Care Time Critical Care Time: No Discharge Plan Discharge Clinical Impression: Acute otitis media Patient Disposition: Home, Self-Care Instructions: Ear Infection (ED) Additional Instructions: Take your medications as prescribed. If you were prescribed antibiotics today, it is important that you take your medication to their entirety, do not skip any doses, do not finish them early. Follow-up with your primary care provider this week. Please follow-up with ears Nose and Throat specialist. Return to the emergency department with new or worsening symptoms. Such as fevers, chills, chest pain, shortness of breath, nausea, vomiting, dizziness, headache, vision changes, lethargy In case of emergency call 911 Please check your blood pressure Tuesday, Tuesday, Tuesday and write it down and share it with your primary care provider Please continue taking your amoxicillin, I have sent ear drops your pharmacy please use them in both ears, I have also some prednisone a steroid, please take this in the morning for 5 days. Please watch her sugars on prednisone as it can make her sugars go high adjust insulin as needed if this applies to. CT/CT mastoid IMPRESSION: Under pneumatized mastoid air cells, which appear aerated. No gross abnormality of the middle ear structures. ? Prescriptions: New ciprofloxacin-dexamethasone [Ciprodex] 0.3-0.1 % drops,suspension 4 drp otic (ears) BID 7 Days Qty: 7.5 0RF Rx Instructions: Applied to both ears prednisone 20 mg tablet 20 mg PO DAILY 5 Days Qty: 5 0RF No Action cholecalciferol (vitamin D3) 25 mcg (1,000 unit) capsule 25 mcg PO DAILY 90 Days Qty: 90 1RF albuterol sulfate 90 mcg/actuation HFA aerosol inhaler 1 puff PO Q4H PRN (Reason: bronchospasm) 90 Days Qty: 54 1RF Accu-Chek Faustina Plus test strp Strip 1 strip miscellaneous BID 90 Days Qty: 200 2RF Flovent HFA 110 mcg/actuation HFA aerosol inhaler 1 puff PO BID 30 Days Qty: 12 11RF metoprolol succinate 100 mg tablet extended release 24 hr 100 mg PO DAILY Qty: 90 3RF atorvastatin 40 mg tablet 40 mg PO DAILY Qty: 90 3RF losartan 25 mg tablet 25 mg PO DAILY Qty: 90 3RF clotrimazole [Antifungal (clotrimazole)] 1 % cream 1 applic topical BID 14 Days Qty: 15 0RF amoxicillin 500 mg tablet 500 mg PO TID 7 Days Qty: 21 0RF glipizide 10 mg tablet 10 mg PO QAM 90 Days Qty: 90 2RF (DME) blood-glucose meter [FreeStyle Lite Meter] Kit See Rx Instructions .Route Qty: 1 0RF Rx Instructions: As directed (DME) FreeStyle Lite Strips Strip See Rx Instructions .Route Qty: 50 6RF Rx Instructions: As directed (DME) lancets [FreeStyle Lancets] 28 gauge misc See Rx Instructions .Route Qty: 100 6RF Rx Instructions: As directed gabapentin 100 mg capsule 100 mg PO BEDTIME 90 Days Qty: 90 1RF metformin 500 mg tablet 500 mg PO BID 90 Days Qty: 180 3RF Toujeo Max U-300 SoloStar 300 unit/mL (3 mL) insulin pen 56 unit subcut BID 30 Days Qty: 11.202 11RF terbinafine HCl 250 mg tablet 250 mg PO DAILY 90 Days Qty: 90 0RF Referrals: Jamison Nix [Physician] - 2 days Rose Mary Jones MD [Primary Care Provider] - 2 days Stand Alone Forms: Work/School Release
[2022-04-24 01:52] VITALS: BP 154/78; PULSE 74; RESP 16; TEMP 37.1; O2SAT 98
== END 2022-04-24 02:14 | disposition home or self-care (01) ==
PROVIDERS: Emergency Provider Internal Medicine; PCP Internal Medicine
DX: H66.93 Otitis media, unspecified, bilateral (principal); E11.22 Type 2 diabetes mellitus with diabetic chronic kidney disease; I12.9 Hypertensive chronic kidney disease with stage 1 through stage 4 chronic kidney disease, or unspecified chronic kidney disease; N18.30 Chronic kidney disease, stage 3 unspecified; Z79.4 Long term (current) use of insulin; Z87.891 Personal history of nicotine dependence
CPT/HCPCS: 70481; 99283; 99284

== ENCOUNTER 2022-05-02 20:58 | Emergency (ER) | payer OTHER, SELFPAY ==
--- NOTE | ~2022-05-02 | XR_ITS ---
EXAMINATION: XR CHEST CLINICAL INFORMATION: Dyspnea COMPARISON: Previous chest x-ray January 2022 TECHNIQUE: 2 views of the chest were obtained. FINDINGS: The cardiac and mediastinal contours are stable. The lungs are clear. There is no pleural effusion or pneumothorax. There are degenerative changes of the spine. XR/XR chest 2V IMPRESSION: No evidence for acute disease in the chest.
[2022-05-02 21:04] VITALS: BP 126/81; PULSE 62; RESP 16; TEMP 36.3; O2SAT 98; BMI 27.9
--- NOTE | 2022-05-02 21:10 | ECG_ITS ---
Test Reason : cp Blood Pressure : / mmHG Vent. Rate : 059 BPM Atrial Rate : 059 BPM P-R Int : 138 ms QRS Dur : 080 ms QT Int : 406 ms P-R-T Axes : 048 013 051 degrees QTc Int : 401 ms Sinus bradycardia Otherwise normal ECG When compared with ECG of 21-JAN-2022 23:52, Vent. rate has decreased BY 47 BPM Nonspecific T wave abnormality no longer evident in Inferior leads QT has shortened Referred By: Becky Sullivan Electronically Signed By:BHAVIK MONTEJO MD
[2022-05-02 22:20] LABS: Hematocrit 40.9 % (42.0-52.0); Hemoglobin 13.3 g/dl (14.0-18.0); Mean Corpuscular HGB Conc 32.5 g/dl (31.0-36.0); Mean Corpuscular Hemoglobin 28.2 pg (27.0-33.0); Mean Corpuscular Volume 86.8 fL (80.0-98.0); Mean Platelet Volume 11.3 fL (9.4-12.4); Platelet Count 288 X10*3/uL (160-400); Red Blood Count 4.71 X10*6/uL (4.60-5.80); Red Cell Distribution Width 14.3 % (11.0-16.0); White Blood Count 10.5 X10*3/uL (4.8-10.8)
[2022-05-02 22:34] LABS: Anion Gap 12 (12-20); Blood Urea Nitrogen 12 mg/dL (9-16); Calcium 9.7 mg/dL (8.4-10.2); Carbon Dioxide 26 mmol/L (22-29); Chloride 105 mmol/L (96-108); Creatinine Clr Calc Pharmacy 46.1; Estimated Glomerular Filt Rate 51; Glucose Random 167 mg/dL (60-115); Magnesium 2.2 mg/dL (1.6-2.6); Potassium 4.3 mmol/L (3.3-5.1); Sodium 139 mmol/L (135-145)
[2022-05-02 22:36] LABS: COVID-19 Test Negative (Negative); IDNOW Serial# 55D5AD1C
[2022-05-02 22:39] LABS: B Type Natriuretic Peptide 27 pg/mL (<100)
--- NOTE | 2022-05-02 22:51 | ED.SOB ---
HPI - SOB/Dyspnea General Chief Complaint: Dyspnea Stated Complaint: Sob/Weakness Time Seen by Provider: 05/02/22 22:50 Source: patient, family and old records reviewed Mode of arrival: ambulatory Limitations: no limitations History of Present Illness HPI Narrative: waking up choking on mucous, feels like he wakes up at night and cannot breathe no prior KASSI started after taking prednisone, has anxiety, does fine during the day only happens at night MD elicited complaint: shortness of breath Pertinent past history: other (recent prednisone and treatment for bilateral AOM) Onset (ago): day(s) (since prednisone use 04/24) Context: recent illness Timing: intermittent Severity: moderate Exacerbating factors: lying flat Relieving factors: other (states he has no symptoms during the day) Known history of: other (post nasal drip) Associated symptoms: other (runny nose, anxiety) Treatment prior to arrival: none Related Data Previous Rx's Medication Instructions Recorded cholecalciferol (vitamin D3) 25 25 mcg PO DAILY 90 days #90 caps 11/30/21 mcg (1,000 unit) capsule blood sugar diagnostic (FreeStyle #50 ea 12/15/21 Lite Strips) blood-glucose meter (FreeStyle #1 ea 12/15/21 Lite Meter) glipizide 10 mg tablet 10 mg PO QAM 90 days #90 tabs 12/15/21 lancets 28 gauge (FreeStyle #100 ea 12/15/21 Lancets) albuterol sulfate 90 mcg/actuation 1 puff PO Q4H PRN bronchospasm 90 12/28/21 aerosol inhaler days #54 ea blood sugar diagnostic (Accu-Chek 1 strip miscellaneous BID 90 days 12/28/21 Faustina Plus test strp) #200 strips fluticasone propionate 110 1 puff PO BID 30 days #12 ea 12/28/21 mcg/actuation HFA aerosol inhaler (Flovent HFA) metoprolol succinate 100 mg 100 mg PO DAILY #90 tabs 12/31/21 tablet,extended release 24 hr atorvastatin 40 mg tablet 40 mg PO DAILY #90 tabs 02/18/22 insulin glargine U-300 conc 300 56 unit (0.1867 mL) subcut BID 30 04/01/22 unit/mL (3 mL) subcutaneous pen days #11.202 mL (Toujeo Max U-300 SoloStar) metformin 500 mg tablet 500 mg PO BID 90 days #180 tabs 04/01/22 terbinafine HCl 250 mg tablet 250 mg PO DAILY 90 days #90 tabs 04/01/22 gabapentin 100 mg capsule 200 mg PO BEDTIME 90 days #180 caps 04/29/22 losartan 50 mg tablet 50 mg PO DAILY 90 days #90 tabs 04/29/22 fluticasone propionate 50 1 spray intranasal DAILY #16 grams 05/02/22 mcg/actuation nasal spray,suspension loratadine 10 mg tablet (Claritin) 10 mg PO DAILY PRN allergic 05/02/22 symptoms #30 tabs lorazepam 0.5 mg tablet (Ativan) 0.5 mg PO BEDTIME PRN sleep #3 tabs 05/02/22 Allergies Allergy/AdvReac Type Severity Reaction Status Date / Time No Known Allergies Allergy Verified 04/29/22 08:16 [No Known Allergies*] Review of Systems Review of Systems: Constitutional : No Fever, No Chills ENT/Mouth : No sore throat, pos Rhinorrhea, No Swallowing Difficulty Eyes: No Eye Pain, No Swelling, No Redness Cardiovascular : No Chest Pain, positive SOB, No Orthopnea, no Edema Respiratory : No Cough, No Sputum, No Wheezing, positive dyspnea Gastrointestinal : No Nausea, No Vomiting, No Diarrhea, No abdominal Pain, No Hematochezia, No Melena Genitourinary : No Dysuria, No Urinary Frequency, No Hematuria Musculoskeletal : No joint pain, No Myalgias Skin : No Skin Lesions, No rash Neuro : No Weakness, No Numbness, No Dizziness, No Headache Psych : pos Anxiety/Panic, No Depression, pos insomnia Heme/Lymph: No Bruising, No Lymphadenopathy Endocrine : No Polyuria, No Polydipsia All other systems reviewed and are negative PMFSH Past Medical History Attestation statement: The following information was validated with the patient. 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 Son No problems noted. Son No problems noted. Son No problems noted. Social History Social History Housing: House Alcohol intake: former Patient Tobacco Use Status: Former Tobacco user Tobacco use type: Cigarette e-Cigarette/Vaping Use: Never Used Second Hand Smoke Exposure: No Advance Directives: No Advance Directives Information Provided: No Advance Directives Date on File: 07/30/20 service: No Current occupational status: retired Cognitive needs: No Hearing needs: No Vision needs: No Physical Exam Vital Signs: Vital Signs: Last Vital Signs Temp 97.4 F 05/02/22 21:04 Pulse 62 05/02/22 21:04 Resp 16 05/02/22 21:04 BP 126/81 05/02/22 21:04 Pulse Ox 98 05/02/22 21:04 O2 Del Method 05/02/22 21:04 BMI result Body Mass Index 27.9 Appearance: Alert. Oriented X3. No acute distress. Eyes: Pupils equal, round and reactive to light. ENT: Pharynx normal. TMs R slight clear effusion still noted, L TM slight clear effusion noted no erythema Neck: Normal inspection. Neck supple. CVS: Normal heart rate and rhythm. Pulses normal. Respiratory: No respiratory distress. Breath sounds normal. Abdomen: Soft and non-tender. Skin: Skin warm and dry. Normal skin color. Normal skin turgor. Extremities: No lower extremity edema. No calf ttp Neuro: Oriented X 3. No motor deficit. No sensory deficit. MDM - SOB/Dyspnea MDM Narrative Medical decision making narrative: 72 yo male with hx of CAD, CKD, DM, HTN recently treated this month for bilateral AOM with abx and was on 5 days of prednisone / since then anxiety and insomnia still has post nasal drip at this time still has post nasal drip causing him to wake up and cough at night and feel like he cannot breathe - labs and CXR stable, will place on fluticasone and claritin, PO ativan for the next few nights for sleep. Lab Data Result diagrams: 05/02/22 22:15 05/02/22 22:15 Labs: Lab Results 05/02/22 05/02/22 05/02/22 Range/Units 22:15 22:15 22:15 WBC 10.5 (4.8-10.8) X10*3/uL RBC 4.71 (4.60-5.80) X10*6/uL Hgb 13.3 L (14.0-18.0) g/dl Hct 40.9 L (42.0-52.0) % MCV 86.8 (80.0-98.0) fL MCH 28.2 (27.0-33.0) pg MCHC 32.5 (31.0-36.0) g/dl RDW 14.3 (11.0-16.0) % Plt Count 288 (160-400) X10*3/uL MPV 11.3 (9.4-12.4) fL Absolute Nucleated RBC 0.000 (0.0-0.012) X10*3/uL Nucleated RBC % (auto) 0.0 (0.0-0.2) /100WBC Sodium 139 (135-145) mmol/L Potassium 4.3 (3.3-5.1) mmol/L Chloride 105 (96-108) mmol/L Carbon Dioxide 26 (22-29) mmol/L Anion Gap 12 (12-20) BUN 12 (9-16) mg/dL Creatinine 1.38 (0.5-1.4) mg/dL Estim Creat Clear Calc 46.1 Estimated GFR 51 Random Glucose 167 H D (60-115) mg/dL Calcium 9.7 (8.4-10.2) mg/dL Magnesium 2.2 (1.6-2.6) mg/dL Troponin I High Sens 6.0 (<3.5-35.0) ng/L B-Natriuretic Peptide 27 (<100) pg/mL COVID-19 ([facility]) (Negative) COVID-19 Clin Com 05/02/22 Range/Units 22:15 WBC (4.8-10.8) X10*3/uL RBC (4.60-5.80) X10*6/uL Hgb (14.0-18.0) g/dl Hct (42.0-52.0) % MCV (80.0-98.0) fL MCH (27.0-33.0) pg MCHC (31.0-36.0) g/dl RDW (11.0-16.0) % Plt Count (160-400) X10*3/uL MPV (9.4-12.4) fL Absolute Nucleated RBC (0.0-0.012) X10*3/uL Nucleated RBC % (auto) (0.0-0.2) /100WBC Sodium (135-145) mmol/L Potassium (3.3-5.1) mmol/L Chloride (96-108) mmol/L Carbon Dioxide (22-29) mmol/L Anion Gap (12-20) BUN (9-16) mg/dL Creatinine (0.5-1.4) mg/dL Estim Creat Clear Calc Estimated GFR Random Glucose (60-115) mg/dL Calcium (8.4-10.2) mg/dL Magnesium (1.6-2.6) mg/dL Troponin I High Sens (<3.5-35.0) ng/L B-Natriuretic Peptide (<100) pg/mL COVID-19 ([facility]) Negative (Negative) COVID-19 Clin Com See Note Discharge Plan Discharge Clinical Impression: Anxiety, Post-nasal drip Patient Disposition: Home, Self-Care Instructions: Anxiety (ED), Postnasal Drip (DC) Additional Instructions: return to ED for any worsening symptoms or concerns Prescriptions: New loratadine [Claritin] 10 mg tablet 10 mg PO DAILY PRN (Reason: allergic symptoms) Qty: 30 0RF fluticasone propionate 50 mcg/actuation spray,suspension 1 spray intranasal DAILY Qty: 16 0RF Rx Instructions: administer into each nostril lorazepam [Ativan] 0.5 mg tablet 0.5 mg PO BEDTIME PRN (Reason: sleep) Qty: 3 0RF No Action cholecalciferol (vitamin D3) 25 mcg (1,000 unit) capsule 25 mcg PO DAILY 90 Days Qty: 90 1RF albuterol sulfate 90 mcg/actuation HFA aerosol inhaler 1 puff PO Q4H PRN (Reason: bronchospasm) 90 Days Qty: 54 1RF Accu-Chek Faustina Plus test strp Strip 1 strip miscellaneous BID 90 Days Qty: 200 2RF Flovent HFA 110 mcg/actuation HFA aerosol inhaler 1 puff PO BID 30 Days Qty: 12 11RF metoprolol succinate 100 mg tablet extended release 24 hr 100 mg PO DAILY Qty: 90 3RF atorvastatin 40 mg tablet 40 mg PO DAILY Qty: 90 3RF glipizide 10 mg tablet 10 mg PO QAM 90 Days Qty: 90 2RF (DME) blood-glucose meter [FreeStyle Lite Meter] Kit See Rx Instructions .Route Qty: 1 0RF Rx Instructions: As directed (DME) FreeStyle Lite Strips Strip See Rx Instructions .Route Qty: 50 6RF Rx Instructions: As directed (DME) lancets [FreeStyle Lancets] 28 gauge misc See Rx Instructions .Route Qty: 100 6RF Rx Instructions: As directed gabapentin 100 mg capsule 200 mg PO BEDTIME 90 Days Qty: 180 1RF losartan 50 mg tablet 50 mg PO DAILY 90 Days Qty: 90 1RF metformin 500 mg tablet 500 mg PO BID 90 Days Qty: 180 3RF Toujeo Max U-300 SoloStar 300 unit/mL (3 mL) insulin pen 56 unit subcut BID 30 Days Qty: 11.202 11RF terbinafine HCl 250 mg tablet 250 mg PO DAILY 90 Days Qty: 90 0RF Referrals: Rose Mary Jones MD [Primary Care Provider] - 3 days (if not better) Print Language: Faroese
[2022-05-02] MEDS: LORazepam 0.5 MG TABLET PO (23:30)
[2022-05-02] MEDS: Loratadine 10 MG TABLET PO (23:30)
== END 2022-05-02 23:33 | disposition home or self-care (01) ==
PROVIDERS: Emergency Provider Emergency Medicine; PCP Internal Medicine
DX: F41.9 Anxiety disorder, unspecified (principal); R09.82 Postnasal drip; R06.02 Shortness of breath; Z20.822 Contact with and (suspected) exposure to COVID-19; E11.22 Type 2 diabetes mellitus with diabetic chronic kidney disease; I12.9 Hypertensive chronic kidney disease with stage 1 through stage 4 chronic kidney disease, or unspecified chronic kidney disease; N18.9 Chronic kidney disease, unspecified; E78.5 Hyperlipidemia, unspecified; E66.9 Obesity, unspecified; Z68.27 Body mass index [BMI] 27.0-27.9, adult; Z79.4 Long term (current) use of insulin; Z79.899 Other long term (current) drug therapy; Z79.51 Long term (current) use of inhaled steroids; Z79.02 Long term (current) use of antithrombotics/antiplatelets; Z87.891 Personal history of nicotine dependence
CPT/HCPCS: 36415; 71046; 80048; 83735; 83880; 84484; 85027; 87635; 93005; 99283

== ENCOUNTER 2022-05-08 22:57 | Emergency (ER) | payer OTHER, SELFPAY ==
--- NOTE | ~2022-05-08 | XR_ITS ---
EXAMINATION: XR CHEST CLINICAL INFORMATION: Shortness of breath COMPARISON: 05/02/2022 TECHNIQUE: Frontal view of the chest was obtained. FINDINGS: The lungs are clear with no focal consolidation. No evidence of pneumothorax, pulmonary edema, or pleural effusions. The cardiomediastinal silhouette is unremarkable. No acute osseous findings. Degenerative changes are noted in the spine. XR/XR chest 1V IMPRESSION: No acute cardiopulmonary findings.
[2022-05-08 23:02] VITALS: BP 182/71; PULSE 68; O2SAT 91
[2022-05-08 23:05] VITALS: BP 158/65; PULSE 64; RESP 20; TEMP 36.6; O2SAT 97; BMI 26.6
--- NOTE | 2022-05-09 00:12 | ED.GENADULT ---
HPI - General Adult General Chief complaint: General Medical Stated complaint: sob Time Seen by Provider: 05/09/22 00:12 Source: patient, family and EMS Mode of arrival: EMS Limitations: other ( Poor historian) History of Present Illness HPI narrative: 72-year-old male past medical history significant for CKD, hyperlipidemia, hypertension, diabetes Presents to the emergency department with shortness of breath, chest pain times week. Patient tells his chest pain is substernal in nature nonradiating, intermittent and described as a squeezing/stabbing sensation. He tells me he has been feeling short of breath with exertion and while he sleeps, he has been sleeping with more pillows than usual. Family member at the bedside tells me that he has been much more weak than usual and he has been reporting lower extremity pain bilaterally. Family also has been telling me that patient has been fluctuating between diarrhea and constipation over the past few weeks which is abnormal for him as well as having some abdominal discomfort and distention. Worse with movement better at rest. Patient poor historian. patient is not on anticoagulation. All symptoms are worse at night. No recent falls. Patient denies nausea, vomiting , fevers, chills, headache, dizziness or vision changes. Related Data Previous Rx's Medication Instructions Recorded cholecalciferol (vitamin D3) 25 25 mcg PO DAILY 90 days #90 caps 11/30/21 mcg (1,000 unit) capsule blood sugar diagnostic (FreeStyle #50 ea 12/15/21 Lite Strips) blood-glucose meter (FreeStyle #1 ea 12/15/21 Lite Meter) glipizide 10 mg tablet 10 mg PO QAM 90 days #90 tabs 12/15/21 lancets 28 gauge (FreeStyle #100 ea 12/15/21 Lancets) albuterol sulfate 90 mcg/actuation 1 puff PO Q4H PRN bronchospasm 90 12/28/21 aerosol inhaler days #54 ea blood sugar diagnostic (Accu-Chek 1 strip miscellaneous BID 90 days 12/28/21 Faustina Plus test strp) #200 strips fluticasone propionate 110 1 puff PO BID 30 days #12 ea 12/28/21 mcg/actuation HFA aerosol inhaler (Flovent HFA) metoprolol succinate 100 mg 100 mg PO DAILY #90 tabs 12/31/21 tablet,extended release 24 hr atorvastatin 40 mg tablet 40 mg PO DAILY #90 tabs 02/18/22 insulin glargine U-300 conc 300 56 unit (0.1867 mL) subcut BID 30 04/01/22 unit/mL (3 mL) subcutaneous pen days #11.202 mL (Toujeo Max U-300 SoloStar) metformin 500 mg tablet 500 mg PO BID 90 days #180 tabs 04/01/22 terbinafine HCl 250 mg tablet 250 mg PO DAILY 90 days #90 tabs 04/01/22 gabapentin 100 mg capsule 200 mg PO BEDTIME 90 days #180 caps 04/29/22 losartan 50 mg tablet 50 mg PO DAILY 90 days #90 tabs 04/29/22 fluticasone propionate 50 1 spray intranasal DAILY #16 grams 05/02/22 mcg/actuation nasal spray,suspension loratadine 10 mg tablet (Claritin) 10 mg PO DAILY PRN allergic 05/02/22 symptoms #30 tabs lorazepam 0.5 mg tablet (Ativan) 0.5 mg PO BEDTIME PRN sleep #3 tabs 05/02/22 Allergies Allergy/AdvReac Type Severity Reaction Status Date / Time No Known Allergies Allergy Verified 04/29/22 08:16 [No Known Allergies*] Review of Systems Review of Systems: Constitutional : No Weight loss, No Fever, No Chills, No Fatigue, No Malaise ENT/Mouth : No sore throat, No Rhinorrhea Eyes: No Eye Pain, No Swelling, No Redness Cardiovascular : + Chest Pain, + SOB, + Dyspnea on Exertion, + Orthopnea, No Edema, No Palpitations Respiratory : No Cough, No Sputum, No Wheezing Gastrointestinal : No Nausea, No Vomiting, No Diarrhea, No Constipation, + abdominal Pain, No Hematochezia, No Melena Genitourinary : No Dysuria, No Urinary Frequency, No Hematuria, Musculoskeletal : No joint pain, No Myalgias, No Joint Swelling Skin : No Skin Lesions, No rash Neuro : No Weakness, No Numbness, No Dizziness, No Headache Psych : No Anxiety/Panic, No Depression All other systems reviewed and are negative Yes all other systems are reviewed and are negative PMFSH Past Medical History Attestation statement: The following information was validated with the patient. 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 Son No problems noted. Son No problems noted. Son No problems noted. Social History Social History Housing: House Alcohol intake: former Patient Tobacco Use Status: Former Tobacco user Tobacco use type: Cigarette e-Cigarette/Vaping Use: Never Used Second Hand Smoke Exposure: No Advance Directives: No Advance Directives Information Provided: Yes Advance Directives Date on File: 07/30/20 service: No Current occupational status: retired Cognitive needs: No Hearing needs: No Vision needs: No Physical Exam ED Vital Signs: Vital Signs - 24 hr 05/08/22 23:05 05/09/22 00:26 Temperature 98 F 97.7 F Pulse Rate 64 61 Respiratory Rate 20 15 Blood Pressure 158/65 H 135/67 Pulse Oximetry 97 96 Oxygen Delivery Method Room Air Room Air BMI result Body Mass Index 26.6 VSS Appearance: Alert.? Oriented X3.? No acute distress.? Head: Normocephalic, atraumatic, no step-offs or deformities Eyes: Pupils equal, round and reactive to light.? ENT: Pharynx normal.? Neck: Normal inspection.? Neck supple.? CVS: Normal heart rate and rhythm.? Pulses normal.? Respiratory: No respiratory distress.? Breath sounds normal.? Abdomen: Soft and nontender.? Skin: Skin warm and dry.? Normal skin color.? Normal skin turgor.? Extremities: No lower extremity edema.? No calf ttp, negative dunia sign b/l. 5/5 strength to bilateral upper and lower extremities Neuro: Oriented X 3.? No motor deficit.? No sensory deficit. CN 2-12 intact Course Reevaluation(s) Reevaluation #1: COVID negative.CBC within normal limits. Chemistry with no acute electrolyte abnormalities requiring intervention, patient's creatinine is noted to be around patient's baseline. Troponin negative EKG nonischemic unlikely ACS.. BNP negative unlikely CHF. Dimer negative, dunia negaitve unlikely PE or DVT. VSS Time: 01:46 Reevaluation #2: Chest x-ray with no acute findings. UA clean. Time: 02:15 Reevaluation #3: Educated patient and family member who is at the bedside on laboratory studies, imaging. Advised them to return with new or worsening symptoms. Likely anxiety, patient tells me he is no longer having the chest pain. Advised him to follow-up with cardiology for further evaluation. Advised to return with new or worsening symptoms and to follow-up with PCP Time: 02:18 Medical Decision Making [facility] Narrative Medical decision making narrative: [id number] 72 year old female presents to the emergency department with chest pain, shortness of breath, changes in bowel habits and fatigue X1 week. PE benign Plan- cardiac work up, basic labs, UA, bnp, dimer, covid Unlikely PE, ACS, DVT or PNA. Medical Records Medical records reviewed: Yes I reviewed the patient's medical records. Lab Data Lab results reviewed: Yes I reviewed the patient's lab results. Result diagrams: 05/09/22 00:37 05/09/22 00:37 Labs: Lab Results 05/09/22 05/09/22 05/09/22 Range/Units 00:19 00:37 00:37 WBC 8.1 (4.8-10.8) X10*3/uL RBC 4.18 L (4.60-5.80) X10*6/uL Hgb 11.7 L (14.0-18.0) g/dl Hct 35.5 L (42.0-52.0) % MCV 84.9 (80.0-98.0) fL MCH 28.0 (27.0-33.0) pg MCHC 33.0 (31.0-36.0) g/dl RDW 14.0 (11.0-16.0) % Plt Count 255 (160-400) X10*3/uL MPV 10.9 (9.4-12.4) fL Immature Gran % (Auto) 0.2 (0.0-0.4) % Neut % (Auto) 50.6 (45-73) % Lymph % (Auto) 36.4 (20-40) % Preston % (Auto) 11.2 H (2-11) % Eos % (Auto) 1.2 (0-4) % Baso % (Auto) 0.4 (0-2) % Lymph # (Auto) 3.0 (1.2-4.9) X10*3/uL Preston # (Auto) 0.9 (0.1-1.2) X10*3/uL Eos # (Auto) 0.1 (0.0-0.4) X10*3/uL Baso # (Auto) 0.0 (0.0-0.2) X10*3/uL Abs Immat Gran (auto) 0.02 (0.00-0.03) X10*3/uL Absolute Neuts (auto) 4.1 (2.0-8.3) x10*3/uL Absolute Nucleated RBC 0.000 (0.0-0.012) X10*3/uL Nucleated RBC % (auto) 0.0 (0.0-0.2) /100WBC D-Dimer High Sensitivty < 150 NG/ML Sodium (135-145) mmol/L Potassium (3.3-5.1) mmol/L Chloride (96-108) mmol/L Carbon Dioxide (22-29) mmol/L Anion Gap (12-20) BUN (9-16) mg/dL Creatinine (0.5-1.4) mg/dL Estim Creat Clear Calc Estimated GFR POC Glucose 228 H (60-115) mg/dL Random Glucose (60-115) mg/dL Calcium (8.4-10.2) mg/dL Magnesium (1.6-2.6) mg/dL Total Bilirubin (0.0-1.0) mg/dL AST (5-37) U/L ALT (0-40) U/L Alkaline Phosphatase (39-117) U/L Total Creatine Kinase (38-174) U/L Troponin I High Sens (<3.5-35.0) ng/L B-Natriuretic Peptide (<100) pg/mL Total Protein (6.5-8.0) g/dL Albumin (3.5-5.0) g/dL Urine Color Urine Appearance Urine pH (5.0-8.0) Ur Specific [place] (1.005-1.025) Urine Protein (NEG-TRACE) MG/DL Urine Glucose (UA) (NEG) MG/DL Urine Ketones (NEG) MG/DL Urine Blood (NEG) Urine Nitrite (NEG) Ur Leukocyte Esterase (NEG) COVID-19 (HANSA) (Negative) COVID-19 Clin Com 05/09/22 05/09/22 05/09/22 Range/Units 00:37 00:37 00:37 WBC (4.8-10.8) X10*3/uL RBC (4.60-5.80) X10*6/uL Hgb (14.0-18.0) g/dl Hct (42.0-52.0) % MCV (80.0-98.0) fL MCH (27.0-33.0) pg MCHC (31.0-36.0) g/dl RDW (11.0-16.0) % Plt Count (160-400) X10*3/uL MPV (9.4-12.4) fL Immature Gran % (Auto) (0.0-0.4) % Neut % (Auto) (45-73) % Lymph % (Auto) (20-40) % Preston % (Auto) (2-11) % Eos % (Auto) (0-4) % Baso % (Auto) (0-2) % Lymph # (Auto) (1.2-4.9) X10*3/uL Preston # (Auto) (0.1-1.2) X10*3/uL Eos # (Auto) (0.0-0.4) X10*3/uL Baso # (Auto) (0.0-0.2) X10*3/uL Abs Immat Gran (auto) (0.00-0.03) X10*3/uL Absolute Neuts (auto) (2.0-8.3) x10*3/uL Absolute Nucleated RBC (0.0-0.012) X10*3/uL Nucleated RBC % (auto) (0.0-0.2) /100WBC D-Dimer High Sensitivty NG/ML Sodium 136 (135-145) mmol/L Potassium 4.0 (3.3-5.1) mmol/L Chloride 105 (96-108) mmol/L Carbon Dioxide 22 (22-29) mmol/L Anion Gap 13 (12-20) BUN 15 (9-16) mg/dL Creatinine 1.54 H (0.5-1.4) mg/dL Estim Creat Clear Calc 37.7 Estimated GFR 45 POC Glucose (60-115) mg/dL Random Glucose 243 H D (60-115) mg/dL Calcium 9.2 (8.4-10.2) mg/dL Magnesium 2.0 (1.6-2.6) mg/dL Total Bilirubin 0.7 (0.0-1.0) mg/dL AST 16 (5-37) U/L ALT 17 (0-40) U/L Alkaline Phosphatase 99 (39-117) U/L Total Creatine Kinase 147 (38-174) U/L Troponin I High Sens 7.4 (<3.5-35.0) ng/L B-Natriuretic Peptide (<100) pg/mL Total Protein 6.0 L (6.5-8.0) g/dL Albumin 3.9 (3.5-5.0) g/dL Urine Color Urine Appearance Urine pH (5.0-8.0) Ur Specific [place] (1.005-1.025) Urine Protein (NEG-TRACE) MG/DL Urine Glucose (UA) (NEG) MG/DL Urine Ketones (NEG) MG/DL Urine Blood (NEG) Urine Nitrite (NEG) Ur Leukocyte Esterase (NEG) COVID-19 (HANSA) Negative (Negative) COVID-19 Clin Com See Note 05/09/22 05/09/22 Range/Units 00:37 01:55 WBC (4.8-10.8) X10*3/uL RBC (4.60-5.80) X10*6/uL Hgb (14.0-18.0) g/dl Hct (42.0-52.0) % MCV (80.0-98.0) fL MCH (27.0-33.0) pg MCHC (31.0-36.0) g/dl RDW (11.0-16.0) % Plt Count (160-400) X10*3/uL MPV (9.4-12.4) fL Immature Gran % (Auto) (0.0-0.4) % Neut % (Auto) (45-73) % Lymph % (Auto) (20-40) % Preston % (Auto) (2-11) % Eos % (Auto) (0-4) % Baso % (Auto) (0-2) % Lymph # (Auto) (1.2-4.9) X10*3/uL Preston # (Auto) (0.1-1.2) X10*3/uL Eos # (Auto) (0.0-0.4) X10*3/uL Baso # (Auto) (0.0-0.2) X10*3/uL Abs Immat Gran (auto) (0.00-0.03) X10*3/uL Absolute Neuts (auto) (2.0-8.3) x10*3/uL Absolute Nucleated RBC (0.0-0.012) X10*3/uL Nucleated RBC % (auto) (0.0-0.2) /100WBC D-Dimer High Sensitivty NG/ML Sodium (135-145) mmol/L Potassium (3.3-5.1) mmol/L Chloride (96-108) mmol/L Carbon Dioxide (22-29) mmol/L Anion Gap (12-20) BUN (9-16) mg/dL Creatinine (0.5-1.4) mg/dL Estim Creat Clear Calc Estimated GFR POC Glucose (60-115) mg/dL Random Glucose (60-115) mg/dL Calcium (8.4-10.2) mg/dL Magnesium (1.6-2.6) mg/dL Total Bilirubin (0.0-1.0) mg/dL AST (5-37) U/L ALT (0-40) U/L Alkaline Phosphatase (39-117) U/L Total Creatine Kinase (38-174) U/L Troponin I High Sens (<3.5-35.0) ng/L B-Natriuretic Peptide 16 (<100) pg/mL Total Protein (6.5-8.0) g/dL Albumin (3.5-5.0) g/dL Urine Color YELLOW Urine Appearance CLEAR Urine pH 6.0 (5.0-8.0) Ur Specific [place] 1.010 (1.005-1.025) Urine Protein NEG (NEG-TRACE) MG/DL Urine Glucose (UA) 250 H (NEG) MG/DL Urine Ketones 5 (NEG) MG/DL Urine Blood NEG (NEG) Urine Nitrite NEG (NEG) Ur Leukocyte Esterase NEG (NEG) COVID-19 ([facility]ANSA) (Negative) COVID-19 Clin Com Critical Care Time Critical Care Time Critical Care Time: No Discharge Plan Discharge Clinical Impression: Chest pain not due to acute coronary syndrome, Shortness of breath, Fatigue Patient Disposition: Home, Self-Care Instructions: Chest Pain (ED), Chest Wall Pain (ED), Fatigue (ED), Shortness of Breath (ED) Additional Instructions: Take your medications as prescribed. If you were prescribed antibiotics today, it is important that you take your medication to their entirety, do not skip any doses, do not finish them early. Follow-up with your primary care provider this week. Return to the emergency department with new or worsening symptoms. Such as fevers, chills, chest pain, shortness of breath, nausea, vomiting, dizziness, headache, vision changes, lethargy In case of emergency call 911 Prescriptions: No Action cholecalciferol (vitamin D3) 25 mcg (1,000 unit) capsule 25 mcg PO DAILY 90 Days Qty: 90 1RF albuterol sulfate 90 mcg/actuation HFA aerosol inhaler 1 puff PO Q4H PRN (Reason: bronchospasm) 90 Days Qty: 54 1RF Accu-Chek Faustina Plus test strp Strip 1 strip miscellaneous BID 90 Days Qty: 200 2RF Flovent HFA 110 mcg/actuation HFA aerosol inhaler 1 puff PO BID 30 Days Qty: 12 11RF metoprolol succinate 100 mg tablet extended release 24 hr 100 mg PO DAILY Qty: 90 3RF atorvastatin 40 mg tablet 40 mg PO DAILY Qty: 90 3RF loratadine [Claritin] 10 mg tablet 10 mg PO DAILY PRN (Reason: allergic symptoms) Qty: 30 0RF fluticasone propionate 50 mcg/actuation spray,suspension 1 spray intranasal DAILY Qty: 16 0RF Rx Instructions: administer into each nostril lorazepam [Ativan] 0.5 mg tablet 0.5 mg PO BEDTIME PRN (Reason: sleep) Qty: 3 0RF glipizide 10 mg tablet 10 mg PO QAM 90 Days Qty: 90 2RF (DME) blood-glucose meter [FreeStyle Lite Meter] Kit See Rx Instructions .Route Qty: 1 0RF Rx Instructions: As directed (DME) FreeStyle Lite Strips Strip See Rx Instructions .Route Qty: 50 6RF Rx Instructions: As directed (DME) lancets [FreeStyle Lancets] 28 gauge misc See Rx Instructions .Route Qty: 100 6RF Rx Instructions: As directed gabapentin 100 mg capsule 200 mg PO BEDTIME 90 Days Qty: 180 1RF losartan 50 mg tablet 50 mg PO DAILY 90 Days Qty: 90 1RF metformin 500 mg tablet 500 mg PO BID 90 Days Qty: 180 3RF Toujeo Max U-300 SoloStar 300 unit/mL (3 mL) insulin pen 56 unit subcut BID 30 Days Qty: 11.202 11RF terbinafine HCl 250 mg tablet 250 mg PO DAILY 90 Days Qty: 90 0RF Referrals: Physician,Unknown J [Primary Care Provider] - 2 days Jaziel Macias MD [Physician] - 3 days Print Language: Guyanese
--- NOTE | 2022-05-09 00:15 | ECG_ITS ---
Test Reason : CHEST PAIN Blood Pressure : / mmHG Vent. Rate : 066 BPM Atrial Rate : 066 BPM P-R Int : 142 ms QRS Dur : 086 ms QT Int : 386 ms P-R-T Axes : 052 022 055 degrees QTc Int : 404 ms Normal sinus rhythm Normal ECG When compared with ECG of 02-MAY-2022 22:13, No significant change was found Referred By: Violetta Machado Electronically Signed By:BHAVIK MONTEJO MD
[2022-05-09 00:23] LABS: Glucose, Whole Blood 228 mg/dL (60-115)
[2022-05-09 00:26] VITALS: BP 135/67; PULSE 61; RESP 15; TEMP 36.5; O2SAT 96
[2022-05-09 00:42] LABS: MANUAL DIFF FLAG NO
[2022-05-09 00:43] LABS: Basophils Percent Auto 0.4 % (0-2); Eosinophils Absolute Auto 0.1 X10*3/uL (0.0-0.4); Eosinophils Percent Auto 1.2 % (0-4); Hematocrit 35.5 % (42.0-52.0); Hemoglobin 11.7 g/dl (14.0-18.0); Imm Gran Abs Auto 0.02 X10*3/uL (0.00-0.03); Imm Gran Pct Auto 0.2 % (0.0-0.4); Lymphocytes Percent Auto 36.4 % (20-40); Mean Corpuscular Volume 84.9 fL (80.0-98.0); Mean Platelet Volume 10.9 fL (9.4-12.4); Monocytes Absolute Auto 0.9 X10*3/uL (0.1-1.2); Monocytes Percent Auto 11.2 % (2-11); Neutrophils Absolute Auto 4.1 x10*3/uL (2.0-8.3); Neutrophils Percent Auto 50.6 % (45-73); Platelet Count 255 X10*3/uL (160-400); Red Blood Count 4.18 X10*6/uL (4.60-5.80); White Blood Count 8.1 X10*3/uL (4.8-10.8)
[2022-05-09 00:53] LABS: D Dimer High Sensitivity < 150 NG/ML
[2022-05-09 00:58] LABS: COVID-19 Test Negative (Negative)
[2022-05-09 01:00] LABS: Alanine Aminotransferase 17 U/L (0-40); Albumin Level 3.9 g/dL (3.5-5.0); Alkaline Phosphatase 99 U/L (39-117); Anion Gap 13 (12-20); Aspartate Amino Transferase 16 U/L (5-37); Bilirubin Total 0.7 mg/dL (0.0-1.0); Blood Urea Nitrogen 15 mg/dL (9-16); Calcium 9.2 mg/dL (8.4-10.2); Carbon Dioxide 22 mmol/L (22-29); Chloride 105 mmol/L (96-108); Creatinine Clr Calc Pharmacy 37.7; Estimated Glomerular Filt Rate 45; Glucose Random 243 mg/dL (60-115); Sodium 136 mmol/L (135-145)
[2022-05-09 01:01] LABS: B Type Natriuretic Peptide 16 pg/mL (<100); Troponin-I High Sensitivity 7.4 ng/L (<3.5-35.0)
[2022-05-09 02:02] LABS: Appearance Urine CLEAR; Color Urine YELLOW; Glucose Urine UA 250 MG/DL (NEG); Leukocyte Esterase Urine NEG (NEG); Nitrite Urine NEG (NEG); Urine Blood NEG (NEG); Urine Ketones 5 MG/DL (NEG); Urine Protein NEG (NEG-TRACE)
[2022-05-09 02:42] VITALS: BP 159/80; PULSE 56; RESP 14; O2SAT 99
[2022-05-09 02:43] LABS: Lipase 41 U/L (8-78)
== END 2022-05-09 02:51 | disposition home or self-care (01) ==
PROVIDERS: Physician Assistant; Emergency Provider Emergency Medicine
DX: R07.89 Other chest pain (principal); R06.02 Shortness of breath; I10 Essential (primary) hypertension; E11.9 Type 2 diabetes mellitus without complications; Z79.4 Long term (current) use of insulin; Z20.822 Contact with and (suspected) exposure to COVID-19; Z79.899 Other long term (current) drug therapy
CPT/HCPCS: 36415; 71045; 80053; 81003; 82550; 82947; 83690; 83735; 83880; 84484; 85025; 85379; 87635; 93005; 99284

== ENCOUNTER 2022-05-12 23:58 | Emergency (ER) | payer OTHER, SELFPAY ==
[2022-05-13 01:04] VITALS: BP 170/78; PULSE 67; RESP 18; TEMP 36.4; O2SAT 98; BMI 28.3
--- NOTE | 2022-05-13 02:31 | ED_ITS ---
HPI - General Adult General Chief complaint: General Medical Stated complaint: can't sleep, stomach pain Time Seen by Provider: 05/13/22 02:27 Source: patient and family Mode of arrival: ambulatory Limitations: no limitations History of Present Illness HPI narrative: Patient comes to the emergency room complaining of insomnia. Patient also complaining of anxiety, states that he has ran out of his lorazepam, and requesting a small prescription p.r.n. severe anxiety. At this time, patient is not anxious but is requesting a prescription so he can fall asleep. Related Data Previous Rx's Medication Instructions Recorded cholecalciferol (vitamin D3) 25 25 mcg PO DAILY 90 days #90 caps 11/30/21 mcg (1,000 unit) capsule blood sugar diagnostic (FreeStyle #50 ea 12/15/21 Lite Strips) blood-glucose meter (FreeStyle #1 ea 12/15/21 Lite Meter kit) glipizide 10 mg tablet 10 mg PO QAM 90 days #90 tabs 12/15/21 lancets 28 gauge (FreeStyle #100 ea 12/15/21 Lancets) albuterol sulfate 90 mcg/actuation 1 puff PO Q4H PRN bronchospasm 90 12/28/21 aerosol inhaler days #54 ea blood sugar diagnostic (Accu-Chek 1 strip miscellaneous BID 90 days 12/28/21 Faustina Plus test strips) #200 strips fluticasone propionate 110 1 puff PO BID 30 days #12 ea 12/28/21 mcg/actuation HFA aerosol inhaler (Flovent HFA) metoprolol succinate 100 mg 100 mg PO DAILY #90 tabs 12/31/21 tablet,extended release 24 hr atorvastatin 40 mg tablet 40 mg PO DAILY #90 tabs 02/18/22 insulin glargine U-300 conc 300 56 unit (0.1867 mL) subcut BID 30 04/01/22 unit/mL (3 mL) subcutaneous pen days #11.202 mL (Toujeo Max U-300 SoloStar) metformin 500 mg tablet 500 mg PO BID 90 days #180 tabs 04/01/22 terbinafine HCl 250 mg tablet 250 mg PO DAILY 90 days #90 tabs 04/01/22 gabapentin 100 mg capsule 200 mg PO BEDTIME 90 days #180 caps 07/07/22 losartan 50 mg tablet 50 mg PO DAILY 90 days #90 tabs 04/29/22 fluticasone propionate 50 1 spray intranasal DAILY #16 grams 05/02/22 mcg/actuation nasal spray,suspension loratadine 10 mg tablet (Claritin) 10 mg PO DAILY PRN allergic 05/02/22 symptoms #30 tabs lorazepam 0.5 mg tablet (Ativan) 0.5 mg PO BEDTIME PRN sleep #3 tabs 05/02/22 lorazepam 1 mg tablet 1 mg PO BID PRN anxiety #7 tabs 05/13/22 olanzapine 2.5 mg tablet 2.5 mg PO BEDTIME PRN insomnia #20 05/13/22 tabs Allergies Allergy/AdvReac Type Severity Reaction Status Date / Time No Known Allergies Allergy Verified 04/29/22 08:16 [No Known Allergies*] Review of Systems Review of Systems: Constitutional : No Weight loss, No Fever, No Chills, No Night Sweats, No Fatigue, No Malaise ENT/Mouth : No Hearing loss, No Ear Pain, No Nasal Congestion, No Sinus Pain, No Hoarseness, No sore throat, No Rhinorrhea, No Swallowing Difficulty Eyes: No Eye Pain, No Swelling, No Redness, No Foreign Body, No Discharge, No Vision Changes Cardiovascular : No Chest Pain, No SOB, No Dyspnea on Exertion, No Orthopnea, No Edema, No Palpitations Respiratory : No Cough, No Sputum, No Wheezing, No Smoke Exposure, No Dyspnea Gastrointestinal : No Nausea, No Vomiting, No Diarrhea, No Constipation, No abdominal Pain, No Hematochezia, No Melena Genitourinary : no irregular bleeding, No Dysuria, No Urinary Frequency, No Hematuria, No Urinary Incontinence, No Urgency, No Flank Pain, No Urinary Flow Changes, No Hesitancy Musculoskeletal : No joint pain, No Myalgias, No Joint Swelling Skin : No Skin Lesions, No rash Neuro : No Weakness, No Numbness, No Paresthesias, No Loss of Consciousness, No Dizziness, No Headache, complaining of chronic insomnia Psych : Complaining of intermittent anxiety none at this time. No Depression, No SI/HI/AH/VH, No Social Issues, Heme/Lymph: No Bruising, No Bleeding,No Lymphadenopathy Endocrine : No Polyuria, No Polydipsia, No Temperature Intolerance 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 Son No problems noted. Son No problems noted. Son No problems noted. Social History Social History Housing: House Alcohol intake: former Patient Tobacco Use Status: Former Tobacco user Tobacco use type: Cigarette e-Cigarette/Vaping Use: Never Used Second Hand Smoke Exposure: No Advance Directives: No Advance Directives Date on File: 07/30/20 service: No Current occupational status: retired Cognitive needs: No Hearing needs: No Vision needs: No Physical Exam ED Vital Signs: Vital Signs - 24 hr 05/13/22 01:04 Temperature 97.6 F Pulse Rate 67 Respiratory Rate 18 Blood Pressure 170/78 H Pulse Oximetry 98 Oxygen Delivery Method Room Air BMI result Body Mass Index 28.3 Const Other: Appearance: Alert. Oriented X3. No acute distress. Eyes: Pupils equal, round and reactive to light. ENT: Pharynx normal. Neck: Normal inspection. Neck supple. No lymph nodes noted. No crepitus CVS: Normal heart rate and rhythm. Pulses normal. Normal S1 and S2 Respiratory: No respiratory distress. Breath sounds normal. No Wheezing. No rales Abdomen: Soft and nontender. No rigidity. No distention. Skin: Skin warm and dry. Normal skin color. Normal skin turgor. Extremities: No lower extremity edema. No Lacerations. No Rash Neuro: Oriented X 3. No motor deficit. No sensory deficit. Moving all extremities. No slurred speech. CN 2 through 12 grossly intact Psych: calm, cooperative, normal affect Course Course Course Narrative: I discussed with the patient to avoid as much as possible any medication to help sleep. Discussed sleep hygiene with the patient. Patient will follow up with his primary care physician. Discharge Plan Discharge Clinical Impression: Insomnia, Anxiety Patient Disposition: Home, Self-Care Instructions: Insomnia (ED), Anxiety (ED) Additional Instructions: Please follow-up with your primary care physician tomorrow. If you have any worsening or new symptoms, please return to the emergency room or call 911 Prescriptions: New olanzapine 2.5 mg tablet 2.5 mg PO BEDTIME PRN (Reason: insomnia) Qty: 20 0RF lorazepam 1 mg tablet 1 mg PO BID PRN (Reason: anxiety) Qty: 7 0RF No Action cholecalciferol (vitamin D3) 25 mcg (1,000 unit) capsule 25 mcg PO DAILY 90 Days Qty: 90 1RF albuterol sulfate 90 mcg/actuation HFA aerosol inhaler 1 puff PO Q4H PRN (Reason: bronchospasm) 90 Days Qty: 54 1RF Accu-Chek Faustina Plus test strp Strip 1 strip miscellaneous BID 90 Days Qty: 200 2RF Flovent HFA 110 mcg/actuation HFA aerosol inhaler 1 puff PO BID 30 Days Qty: 12 11RF metoprolol succinate 100 mg tablet extended release 24 hr 100 mg PO DAILY Qty: 90 3RF atorvastatin 40 mg tablet 40 mg PO DAILY Qty: 90 3RF loratadine [Claritin] 10 mg tablet 10 mg PO DAILY PRN (Reason: allergic symptoms) Qty: 30 0RF fluticasone propionate 50 mcg/actuation spray,suspension 1 spray intranasal DAILY Qty: 16 0RF Rx Instructions: administer into each nostril lorazepam [Ativan] 0.5 mg tablet 0.5 mg PO BEDTIME PRN (Reason: sleep) Qty: 3 0RF glipizide 10 mg tablet 10 mg PO QAM 90 Days Qty: 90 2RF (DME) blood-glucose meter [FreeStyle Lite Meter] Kit See Rx Instructions .Route Qty: 1 0RF Rx Instructions: As directed (DME) FreeStyle Lite Strips Strip See Rx Instructions .Route Qty: 50 6RF Rx Instructions: As directed (DME) lancets [FreeStyle Lancets] 28 gauge misc See Rx Instructions .Route Qty: 100 6RF Rx Instructions: As directed gabapentin 100 mg capsule 200 mg PO BEDTIME 90 Days Qty: 180 1RF losartan 50 mg tablet 50 mg PO DAILY 90 Days Qty: 90 1RF metformin 500 mg tablet 500 mg PO BID 90 Days Qty: 180 3RF Toujeo Max U-300 SoloStar 300 unit/mL (3 mL) insulin pen 56 unit subcut BID 30 Days Qty: 11.202 11RF terbinafine HCl 250 mg tablet 250 mg PO DAILY 90 Days Qty: 90 0RF
== END 2022-05-13 02:52 | disposition home or self-care (01) ==
PROVIDERS: Emergency Provider Emergency Medicine
DX: G47.00 Insomnia, unspecified (principal); F41.9 Anxiety disorder, unspecified; E11.22 Type 2 diabetes mellitus with diabetic chronic kidney disease; I12.9 Hypertensive chronic kidney disease with stage 1 through stage 4 chronic kidney disease, or unspecified chronic kidney disease; N18.30 Chronic kidney disease, stage 3 unspecified; E78.00 Pure hypercholesterolemia, unspecified; E66.9 Obesity, unspecified; Z68.28 Body mass index [BMI] 28.0-28.9, adult; Z87.891 Personal history of nicotine dependence; Z79.4 Long term (current) use of insulin; Z79.02 Long term (current) use of antithrombotics/antiplatelets; Z79.899 Other long term (current) drug therapy
CPT/HCPCS: 99282; 99283

== ENCOUNTER → 2022-06-29 11:07 | Outpatient (BNVA) | payer OTHER, SELFPAY | PROVIDERS: PCP Internal Medicine; Visit Provider Nurse Practitioner | DX: Z01.818 Encounter for other preprocedural examination (principal); D36.9 Benign neoplasm, unspecified site; N18.31 Chronic kidney disease, stage 3a | CPT/HCPCS: 99202 ==

== ENCOUNTER 2022-07-27 06:31 | Outpatient (REF) | payer OTHER, SELFPAY ==
[2022-07-27 08:12] LABS: Microalbum/Creatinine Ratio Ur 155.2 ug/mg cr
[2022-07-27 08:29] LABS: Alanine Aminotransferase 17 U/L (0-40); Albumin Level 4.1 g/dL (3.5-5.0); Alkaline Phosphatase 111 U/L (39-117); Anion Gap 17 (12-20); Aspartate Amino Transferase 19 U/L (5-37); Bilirubin Total 0.5 mg/dL (0.0-1.0); Blood Urea Nitrogen 17 mg/dL (9-16); Calcium 9.2 mg/dL (8.4-10.2); Carbon Dioxide 23 mmol/L (22-29); Chloride 104 mmol/L (96-108); Cholesterol 126 mg/dL; Estimated Glomerular Filt Rate 52; Glucose Fasting 159 mg/dL (60-99); HDL Cholesterol 41 mg/dL; LDL Cholesterol Calculated 69 mg/dl; Potassium 4.4 mmol/L (3.3-5.1); Sodium 140 mmol/L (135-145); Total Protein 6.5 g/dL (6.5-8.0); Triglycerides 83 mg/dL
[2022-07-27 08:34] LABS: Vitamin D 25-OH Total 32.1 ng/mL (>30)
== END 2022-07-27 06:32 | disposition home or self-care (01) ==
LOC: HO.LAB 06:31
PROVIDERS: PCP Internal Medicine; Visit Provider Internal Medicine
DX: E55.9 Vitamin D deficiency, unspecified (principal); E78.5 Hyperlipidemia, unspecified; E11.9 Type 2 diabetes mellitus without complications; N18.31 Chronic kidney disease, stage 3a
CPT/HCPCS: 36415; 80053; 80061; 82043; 82306

== ENCOUNTER 2022-09-27 21:40 | Emergency (ER) | payer OTHER, SELFPAY ==
--- NOTE | 2022-09-27 | ECG_ITS ---
Test Reason : PAIN Blood Pressure : / mmHG Vent. Rate : 075 BPM Atrial Rate : 075 BPM P-R Int : 146 ms QRS Dur : 082 ms QT Int : 366 ms P-R-T Axes : 052 016 074 degrees QTc Int : 408 ms Normal sinus rhythm Possible Inferior infarct , age undetermined Abnormal ECG When compared with ECG of 08-MAY-2022 23:04, Nonspecific T wave abnormality now evident in Lateral leads Referred By: Generic ED Physician Electronically Signed By:BHAVIK MONTEJO MD
--- NOTE | ~2022-09-27 | XR_ITS ---
EXAMINATION: XR CHEST CLINICAL INFORMATION: Chest pain COMPARISON: 05/09/2022 TECHNIQUE: Frontal view of the chest was obtained. FINDINGS: Normal symmetric lung volumes. No parenchymal consolidation. No pleural effusion. No pneumothorax. Cardiomediastinal silhouette and pulmonary vascularity are within normal limits. No acute osseous abnormalities. XR/XR chest 1V IMPRESSION: No acute findings
[2022-09-27 22:06] VITALS: BP 170/70; PULSE 76; RESP 16; TEMP 37; O2SAT 95; BMI 29.6
[2022-09-27 23:09] LABS: Basophils Absolute Auto 0.1 X10*3/uL (0.0-0.2); Basophils Percent Auto 0.8 % (0-2); Eosinophils Absolute Auto 0.2 X10*3/uL (0.0-0.4); Hematocrit 35.9 % (42.0-52.0); Hemoglobin 11.9 g/dl (14.0-18.0); Imm Gran Abs Auto 0.01 X10*3/uL (0.00-0.03); Imm Gran Pct Auto 0.2 % (0.0-0.4); Lymphocytes Absolute Auto 2.1 X10*3/uL (1.2-4.9); Lymphocytes Percent Auto 32.3 % (20-40); MANUAL DIFF FLAG NO; Mean Corpuscular HGB Conc 33.1 g/dl (31.0-36.0); Mean Corpuscular Hemoglobin 27.8 pg (27.0-33.0); Mean Corpuscular Volume 83.9 fL (80.0-98.0); Monocytes Percent Auto 16.3 % (2-11); Neutrophils Percent Auto 47.4 % (45-73); Platelet Count 244 X10*3/uL (160-400); Red Blood Count 4.28 X10*6/uL (4.60-5.80); Red Cell Distribution Width 13.9 % (11.0-16.0); White Blood Count 6.4 X10*3/uL (4.8-10.8)
[2022-09-27 23:16] LABS: COVID-19 Test Negative (Negative); IDNOW Serial# BCCEAD1C
[2022-09-27 23:23] LABS: Alanine Aminotransferase 17 U/L (0-40); Albumin Level 3.9 g/dL (3.5-5.0); Alkaline Phosphatase 119 U/L (39-117); Anion Gap 13 (12-20); Aspartate Amino Transferase 19 U/L (5-37); Blood Urea Nitrogen 18 mg/dL (9-16); Calcium 9.3 mg/dL (8.4-10.2); Carbon Dioxide 24 mmol/L (22-29); Chloride 105 mmol/L (96-108); Creatinine Clr Calc Pharmacy 48.7; Estimated Glomerular Filt Rate 52; Glucose Random 184 mg/dL (60-115); Sodium 138 mmol/L (135-145); Total Protein 6.3 g/dL (6.5-8.0)
[2022-09-27 23:32] LABS: Troponin-I High Sensitivity 5.9 ng/L (<3.5-35.0)
[2022-09-28 01:08] VITALS: BP 177/81; PULSE 69; RESP 18; TEMP 36.6; O2SAT 97
[2022-09-28 02:09] LABS: Bilirubin Total 0.3 mg/dL (0.0-1.0)
[2022-09-28 02:42] VITALS: BP 194/93; PULSE 80; RESP 18; TEMP 36.6; O2SAT 100
--- NOTE | 2022-09-28 03:42 | ED.URI ---
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 Related Data Previous Rx's Medication Instructions Recorded blood sugar diagnostic (FreeStyle #50 ea 12/15/21 Lite Strips) blood-glucose meter (FreeStyle #1 ea 12/15/21 Lite Meter kit) lancets 28 gauge (FreeStyle #100 ea 12/15/21 Lancets) albuterol sulfate 90 mcg/actuation 1 puff PO Q4H PRN bronchospasm 90 12/28/21 aerosol inhaler days #54 ea fluticasone propionate 110 1 puff PO BID 30 days #12 ea 12/28/21 mcg/actuation HFA aerosol inhaler (Flovent HFA) metoprolol succinate 100 mg 100 mg PO DAILY #90 tabs 12/31/21 tablet,extended release 24 hr atorvastatin 40 mg tablet 40 mg PO DAILY #90 tabs 02/18/22 insulin glargine U-300 conc 300 56 unit (0.1867 mL) subcut BID 30 04/01/22 unit/mL (3 mL) subcutaneous pen days #11.202 mL (Toujeo Max U-300 SoloStar) metformin 500 mg tablet 500 mg PO BID 90 days #180 tabs 04/01/22 gabapentin 100 mg capsule 200 mg PO BEDTIME 90 days #180 caps 04/29/22 fluticasone propionate 50 1 spray intranasal DAILY #16 grams 05/02/22 mcg/actuation nasal spray,suspension loratadine 10 mg tablet (Claritin) 10 mg PO DAILY PRN allergic 05/02/22 symptoms #30 tabs lorazepam 0.5 mg tablet 0.5 mg PO BID PRN anxiety 30 days 05/17/22 #60 tabs losartan 100 mg tablet 100 mg PO DAILY 90 days #90 tabs 05/17/22 olanzapine 2.5 mg tablet 2.5 mg PO BEDTIME PRN insomnia 90 05/17/22 days #90 tabs cholecalciferol (vitamin D3) 25 25 mcg PO DAILY 90 days #90 caps 05/26/22 mcg (1,000 unit) capsule terbinafine HCl 250 mg tablet 250 mg PO DAILY 90 days #90 tabs 07/14/22 glipizide 10 mg tablet 10 mg PO QAM 90 days #90 tabs 09/12/22 blood sugar diagnostic (Accu-Chek 1 strip miscellaneous BID 90 days 09/23/22 Faustina Plus test strips) #200 strips amlodipine 5 mg tablet 5 mg PO DAILY 90 days #90 tabs 09/24/22 albuterol sulfate 2.5 mg/3 mL 2.5 mg (3 mL) inhalation Q4-6H PRN 09/28/22 (0.083 %) solution for nebulization shortness of breath or wheezing #90 mL albuterol sulfate 90 mcg/actuation 1 inh inhalation QID PRN shortness 09/28/22 aerosol inhaler of breath or wheezing #8.5 grams prednisone 20 mg tablet 20 mg PO BID #10 tabs 09/28/22 Allergies Allergy/AdvReac Type Severity Reaction Status Date / Time gabapentin Allergy Mild Itching Verified 08/03/22 10:57 Review of Systems Review of Systems: All other systems are reviewed and are negative Constitutional: Reports as per HPI and Reports no additional constitutional complaints Eyes: Reports as per HPI and Reports no additional eye complaints Reports system reviewed and no additional complaints, except as documented Cardiovascular: Reports as per HPI and Reports no additional cardiovascular complaints Respiratory: Reports as per HPI and Reports no additional respiratory complaints Gastrointestinal: Reports as per HPI and Reports no additional gastrointestinal complaints Genitourinary: Reports no additional female genitourinary complaints Musculoskeletal: Reports no additional musculoskeletal complaints Skin/Breast: Reports system reviewed and no additional complaints, except as docu Psychiatric: Reports no additional psychiatric complaints Endocrine: Reports no additional endocrine complaints Hematologic/Lymphatic: Reports no additional hematologic/lymphatic complaints Allergic/Immunologic: Reports no additional allergic/immunologic complaints Reports system reviewed and no additional complaints, except as documented and Reports Abnormal speech present [facility] Past Medical History Medical History Annual physical exam CAD (coronary artery disease) CKD (chronic kidney disease) stage 3, GFR 30-59 ml/min Diabetes mellitus Essential hypertension Former smoker Former smoker Hyperparathyroidism Hypovitaminosis D nursing home (current) use of insulin Microalbuminuria Moderate asthma Obese Pure hypercholesterolemia Surgical History H/O colonoscopy History of lipoma Family History Family History Father Diabetes Mother Diabetes Son No problems noted. Son No problems noted. Son No problems noted. Son No problems noted. Social History Social History Housing: House Alcohol intake: never Patient Tobacco Use Status: Former Tobacco user Tobacco use type: Cigarette Smoked in Last 30 Days: No e-Cigarette/Vaping Use: Never Used Second Hand Smoke Exposure: No Use of substances other than those prescribed or required for medical reasons: No Advance Directives: No Advance Directives Date on File: 07/30/20 service: No Current occupational status: retired Cognitive needs: No Hearing needs: No Vision needs: No Physical Exam Vital Signs: Vital Signs: Last Vital Signs Temp 97.9 F 09/28/22 02:42 Pulse 82 09/28/22 03:52 Resp 18 09/28/22 03:52 BP 166/94 H 09/28/22 03:52 Pulse Ox 96 09/28/22 04:16 O2 Del Method 09/28/22 04:16 BMI result Body Mass Index 29.6 Vital signs have been reviewed as appeared to be correct. Blood pressure elevated. Heart rate normal. Respiration rate normal. Temperature normal. Oxygen saturation normal. Appearance: Alert. Oriented X3. No acute distress. Head: Normal external exam. Normocephalic. Atraumatic. No Bravo signs noted. No raccoon eyes noted Eyes: PERRLA. EOMI. Conjunctiva and sclera normal. Eyelids normal. ENT: TM's Normal. Pharynx normal. Uvula midline. Moist mucous membranes. No trismus noted. No drooling noted. No muffled voice noted. Neck: Normal inspection. Neck supple. FROM. No adenopathy. Thyroid Normal. No meningeal signs. No neck mass noted. CVS: Normal heart rate and rhythm. Heart sound normal. No murmurs noted. Pulses normal throughout. Respiratory: No respiratory distress. Painless inspiration. Breath sounds normal. No wheezes/rales/rhonchi noted. Chest nontender. No accessory muscle usage noted or decreased air movement noted. Abdomen: Soft and nontender. Bowel sounds normal in all 4 quadrants. No distention noted. No organomegaly noted. No visible injury noted. Back: No CVA tenderness. Full range of motion noted. Skin: Skin warm and dry. Normal skin color. Normal skin turgor. No rashes/lesions/lacerations noted. Extremities: No lower extremity edema. Extremities exhibit normal range of motion. Extremities nontender. Neuro: Oriented X 3. Cranial nerve exam: II-XII are grossly intact No motor deficit. No sensory deficit. Reflexes normal. Course Course Course Narrative: 73-year-old male with history of asthma presented with viral bronchitis secondary to influenza A, symptoms started about a week ago patient will not benefit from taking Tamiflu will start the patient on prednisone and bronchodilator and follow-up with PCP. Medical Decision Making Medical Decision Making Independent interpretation of EKG, rhythm strip, radiology study: Independent interp EKG,rhythm strip, radiology study I performed an independent interpretation of the: Plain X-Ray (Chest) My interpretation is no acute lung pathology Discharge Plan Discharge Clinical Impression: Influenza A, Bronchitis Patient Disposition: Home, Self-Care Instructions: Influenza (ED) Prescriptions: New prednisone 20 mg tablet 20 mg PO BID Qty: 10 0RF albuterol sulfate 90 mcg/actuation HFA aerosol inhaler 1 inh inhalation QID PRN (Reason: shortness of breath or wheezing) Qty: 8.5 0RF albuterol sulfate 2.5 mg /3 mL (0.083 %) solution for nebulization 2.5 mg inhalation Q4-6H PRN (Reason: shortness of breath or wheezing) Qty: 90 0RF No Action albuterol sulfate 90 mcg/actuation HFA aerosol inhaler 1 puff PO Q4H PRN (Reason: bronchospasm) 90 Days Qty: 54 1RF Flovent HFA 110 mcg/actuation HFA aerosol inhaler 1 puff PO BID 30 Days Qty: 12 11RF metoprolol succinate 100 mg tablet extended release 24 hr 100 mg PO DAILY Qty: 90 3RF atorvastatin 40 mg tablet 40 mg PO DAILY Qty: 90 3RF cholecalciferol (vitamin D3) 25 mcg (1,000 unit) capsule 25 mcg PO DAILY 90 Days Qty: 90 1RF terbinafine HCl 250 mg tablet 250 mg PO DAILY 90 Days Qty: 90 0RF glipizide 10 mg tablet 10 mg PO QAM 90 Days Qty: 90 2RF Accu-Chek Faustina Plus test strp Strip 1 strip miscellaneous BID 90 Days Qty: 200 2RF amlodipine 5 mg tablet 5 mg PO DAILY 90 Days Qty: 90 1RF loratadine [Claritin] 10 mg tablet 10 mg PO DAILY PRN (Reason: allergic symptoms) Qty: 30 0RF fluticasone propionate 50 mcg/actuation spray,suspension 1 spray intranasal DAILY Qty: 16 0RF Rx Instructions: administer into each nostril (DME) blood-glucose meter [FreeStyle Lite Meter] Kit See Rx Instructions .Route Qty: 1 0RF Rx Instructions: As directed (DME) FreeStyle Lite Strips Strip See Rx Instructions .Route Qty: 50 6RF Rx Instructions: As directed (DME) lancets [FreeStyle Lancets] 28 gauge misc See Rx Instructions .Route Qty: 100 6RF Rx Instructions: As directed gabapentin 100 mg capsule 200 mg PO BEDTIME 90 Days Qty: 180 1RF losartan 100 mg tablet 100 mg PO DAILY 90 Days Qty: 90 1RF olanzapine 2.5 mg tablet 2.5 mg PO BEDTIME PRN (Reason: insomnia) 90 Days Qty: 90 1RF lorazepam 0.5 mg tablet 0.5 mg PO BID PRN (Reason: anxiety) 30 Days Qty: 60 0RF metformin 500 mg tablet 500 mg PO BID 90 Days Qty: 180 3RF Toujeo Max U-300 SoloStar 300 unit/mL (3 mL) insulin pen 56 unit subcut BID 30 Days Qty: 11.202 11RF Referrals: Rose Mary Jones MD [Primary Care Provider] -
[2022-09-28 03:52] VITALS: BP 166/94; PULSE 82; RESP 18; O2SAT 98
[2022-09-28 04:16] VITALS: O2SAT 96
[2022-09-28 04:42] LABS: Influenza A PCR POSITIVE (Negative); Influenza B PCR NEGATIVE (Negative); Resp Syncy Virus RNA Qual PCR NEGATIVE (Negative); SARS COV2 PCR INHOUSE NEGATIVE (Negative)
== END 2022-09-28 05:42 | disposition home or self-care (01) ==
PROVIDERS: Emergency Provider Emergency Medicine; PCP Internal Medicine
DX: J10.1 Influenza due to other identified influenza virus with other respiratory manifestations (principal); R05.9 Cough, unspecified; R06.02 Shortness of breath; I25.10 Atherosclerotic heart disease of native coronary artery without angina pectoris; Z79.899 Other long term (current) drug therapy; Z20.822 Contact with and (suspected) exposure to COVID-19
CPT/HCPCS: 0241U; 36415; 71045; 80053; 84484; 85025; 87635; 93005; 99283; 99285

== ENCOUNTER 2022-10-01 12:56 | Inpatient (IN) | payer OTHER, SELFPAY ==
[2022-10-01] VITALS (10 sets, daily range): BP systolic 116–159; BP diastolic 48–84; PULSE 90–130; RESP 16–31; TEMP 37–39.3; O2SAT 91–98; BMI 28.3
--- NOTE | ~2022-10-01 | XR_ITS ---
EXAMINATION: XR CHEST CLINICAL INFORMATION: Chest pain. Fever. COMPARISON: 09/27/2022 TECHNIQUE: 2 views of the chest were obtained. FINDINGS: Cardiac leads overlie the chest. The lungs are well expanded. Patchy airspace opacities are seen throughout the right lung. No pleural effusion or pneumothorax. The cardiomediastinal silhouette is within normal limits. Degenerative changes throughout the spine. XR/XR chest 2V IMPRESSION: Patchy airspace opacities throughout the right lung are suspicious for pneumonia.
--- NOTE | ~2022-10-01 | CT_ITS ---
EXAMINATION: CT CHEST WITHOUT CONTRAST CLINICAL INFORMATION: Abnormal lung findings on abdominal/pelvic CT scan, follow-up. COMPARISON: CT scan of the abdomen and pelvis dated 10/04/2022 as well as 10/12/2012, chest radiographs dated 10/01/2022. TECHNIQUE: Multidetector volumetric CT imaging of the chest was done. Axial MIP volume rendering provided. Sagittal and coronal reformatted images were obtained. This CT examination was performed using dose optimization techniques as appropriate, variously including the following: *Automated exposure control *Adjustment of mA and/or kV according to patient size (this includes techniques or standardized protocols for targeted exams where dose is matched to indication/reason for exam; i.e. extremities or head) *Use of iterative reconstruction technique DLP: 162 mGy-cm FINDINGS: LUNGS/PLEURA/AIRWAYS: Scattered groundglass opacities with associated bronchiectasis and bronchial wall thickening are seen, right greater than left, most pronounced in the right lower lobe. There are no pleural effusions. The airways are patent. MEDIASTINUM: The thyroid gland is unremarkable. Minimal aortic calcifications. Moderate coronary artery calcifications. No pericardial effusion. UPPER ABDOMEN: Unremarkable. MUSCULOSKELETAL: Multilevel prominent marginal osteophyte formation in the thoracic spine most pronounced inferiorly without acute/suspicious abnormality. SOFT TISSUES: Unremarkable. CT/CT chest wo IV con IMPRESSION: Scattered groundglass opacities with associated bronchiectasis and bronchial wall thickening, right greater than left, most pronounced in the right lower lobe. These findings are nonspecific. These findings can be seen in chronic interstitial disease, but were not seen on the 2012 study. There is acute on chronic infectious/inflammatory process cannot be excluded given the long interval between studies. Continued short-term radiographic follow-up is recommended as clinically indicated. A repeat chest CT scan is recommended in 3 months to assess for more short-term change.
--- NOTE | ~2022-10-01 | CT_ITS ---
EXAMINATION: CT ABDOMEN AND PELVIS WITHOUT CONTRAST CLINICAL INFORMATION: MRSA with bacteremia COMPARISON: 05/05/2016 TECHNIQUE: Multidetector volumetric imaging was performed from the superior aspect of the liver through the pubic symphysis. Sagittal and coronal reformatted images were obtained on the technologist's workstation. This CT examination was performed using dose optimization techniques as appropriate, variously including the following: *Automated exposure control *Adjustment of mA and/or kV according to patient size (this includes techniques or standardized protocols for targeted exams where dose is matched to indication/reason for exam; i.e. extremities or head) *Use of iterative reconstruction technique DLP: 422 mGy-cm FINDINGS: LUNG BASES: Right basilar opacity with interspersed lucencies in satellite regions. Consistent with infiltrates. Cavitation would need to be considered. More mild patchy change at the left base. LIVER, GALLBLADDER, AND BILIARY TREE: The liver is normal in size, shape, and attenuation. No focal hepatic lesion or biliary ductal dilatation is present. The gallbladder is unremarkable with no evidence of radiopaque gallstones, gallbladder wall thickening, or obvious pericholecystic inflammatory changes. PANCREAS: Unremarkable. SPLEEN: Unremarkable. ADRENAL GLANDS: Unremarkable. KIDNEYS AND URETERS: Probable evolving cystic change. There is no hydronephrosis. BLADDER: Unremarkable. GASTROINTESTINAL TRACT: The bowel pattern is nonobstructing. No free fluid ABDOMINAL WALL: No significant hernia is appreciated. LYMPH NODES: Normal. VASCULAR: Mild atherosclerotic changes. No aneurysmal change PELVIC VISCERA: Prominent prostate OSSEOUS STRUCTURES: Unremarkable. CT/CT abdomen pelvis wo IV con IMPRESSION: Dense mixed soft tissue with interspersed lucencies infiltrate at the right base. Findings may suggest cavitation and/or bronchial expansion. Minimal change at the left base. No acute finding in the abdomen pelvis. There is no suspicious fluid collection. The bowel pattern is nonobstructing. Fleischner guidelines were followed.
--- NOTE | 2022-10-01 13:14 | ECG_ITS ---
Test Reason : CHEST PAIN Blood Pressure : / mmHG Vent. Rate : 101 BPM Atrial Rate : 101 BPM P-R Int : 132 ms QRS Dur : 080 ms QT Int : 282 ms P-R-T Axes : 044 020 065 degrees QTc Int : 365 ms Sinus tachycardia with occasional Premature ventricular complexes Possible Inferior infarct (cited on or before 27-SEP-2022) Abnormal ECG When compared with ECG of 27-SEP-2022 22:48, Premature ventricular complexes are now Present Referred By: Kingsley Hinds Electronically Signed By:BHAVIK MONTEJO MD
[2022-10-01] MEDS: Acetaminophen 325 MG TABLET 975 MG PO (13:29)
[2022-10-01] MEDS: 0.9 % Sodium Chloride 1,000 ML 999 ML IV ×2 (13:30→14:16)
[2022-10-01 13:33] LABS: Hematocrit 36.8 % (42.0-52.0); Hemoglobin 12.5 g/dl (14.0-18.0); Mean Corpuscular Volume 82.3 fL (80.0-98.0); Mean Platelet Volume 11.3 fL (9.4-12.4); Platelet Count 285 X10*3/uL (160-400); Red Blood Count 4.47 X10*6/uL (4.60-5.80); Red Cell Distribution Width 13.6 % (11.0-16.0); White Blood Count 18.9 X10*3/uL (4.8-10.8)
[2022-10-01 13:39] LABS: INTERNATIONAL NORM RATIO 1.3 (0.9-1.1); Prothrombin Time 14.5 SEC (10.0-13.1)
[2022-10-01 13:42] LABS: Partial Thromboplastin Time 27.8 SEC (26.0-36.4)
[2022-10-01 13:50] LABS: Lactic Acid 2.1 mmol/L (0.5-2.0)
[2022-10-01 13:52] LABS: Alanine Aminotransferase 19 U/L (0-40); Albumin Level 3.7 g/dL (3.5-5.0); Alkaline Phosphatase 108 U/L (39-117); Anion Gap 13 (12-20); Aspartate Amino Transferase 25 U/L (5-37); Bilirubin Total 1.1 mg/dL (0.0-1.0); Blood Urea Nitrogen 26 mg/dL (9-16); C Reactive Protein 23.03 mg/dL (< or = 0.50); Calcium 8.9 mg/dL (8.4-10.2); Carbon Dioxide 26 mmol/L (22-29); Chloride 96 mmol/L (96-108); Creatinine Clr Calc Pharmacy 31.2; Estimated Glomerular Filt Rate 32; Glucose Random 294 mg/dL (60-115); Lipase 26 U/L (8-78); Potassium 4.2 mmol/L (3.3-5.1); Sodium 131 mmol/L (135-145); Total Protein 6.2 g/dL (6.5-8.0)
[2022-10-01 13:55] LABS: Troponin-I High Sensitivity 19.7 ng/L (<3.5-35.0)
[2022-10-01 13:57] LABS: COVID-19 Test Negative (Negative); IDNOW Serial# 9DB6401D
[2022-10-01 14:06] LABS: Atypical Lymph Absolute Manual 0.4 x10*3/uL; Atypical Lymphs Percent Manual 2 % (0-6); Lymphocytes Absolute Manual 2.1 X10*3/uL (1.2-4.9); Lymphocytes Percent Manual 11 % (20-40); Metamyelocytes Absolute 0.2 X10*3/uL; Metamyelocytes Percent 1 %; Monocytes Percent Manual 16 % (2-11); Neutrophils Absolute Manual 13.2 X10*3/uL (2.0-8.3); Neutrophils Percent Manual 50 % (45-73)
[2022-10-01 14:09] LABS: B Type Natriuretic Peptide 272 pg/mL (<100)
[2022-10-01 14:11] LABS: Band Neutrophils Percent 20 % (3-5)
[2022-10-01 14:13] LABS: Ovalocytes 1+ (5-14) /OIF; Platelet Estimate NORMAL (NORMAL); Platelet Morphology Comment NORMAL; RBC Morphology NOTED
[2022-10-01 14:24] LABS: Erythrocyte Sedimentation Rate 34 MM/HR (0-15)
[2022-10-01] MEDS: Oseltamivir Phosphate 75 MG CAPSULE PO (14:24)
[2022-10-01] MEDS: cefTRIAXone sodium 1 GM in 0.9 % Sodium Chloride 50 ML IV (14:24)
[2022-10-01 15:29] LABS: Reflex Lactate? Lactic Acid Added
--- NOTE | 2022-10-01 15:30 | ED_ITS ---
HPI - URI/Sore Throat General Chief Complaint: Upper Respiratory Symptoms Stated Complaint: NAUSEA/COUGHING Time Seen by Provider: 10/01/22 13:06 Source: patient Mode of arrival: EMS Limitations: no limitations History of Present Illness HPI Narrative: 72-year-old male who presents emergency department for evaluation shortness of breath, cough, weakness to the point where he is unable to get up and walk. The patient states that he has been sick for approximately 9 days. The patient was seen in the emergency department on 09/28/2022 (3 days prior to arrival) for upper respiratory infection and was diagnosed with acute influenza A. The patient was started on bronchodilators and prednisone 20 mg twice a day. He states that despite taking these medications he is gotten worse. He states that he has a cough which is productive of thick phlegm with no blood he states that he is feeling short of breath and having dyspnea on exertion which is gotten worse over the past 3 days. He states that he is feeling very weak and is having difficulty getting up and walking. Patient states that last night he developed loose diarrheal stools and he has had approximately 3 diarrheal stools with no blood in the stool. Patient was brought to emergency department by ambulance. On arrival his respiratory rate was 20, his temperature is a 102.8 degrees and his O2 saturation was 91% on 2 L via nasal cannula. Related Data Previous Rx's Medication Instructions Recorded blood sugar diagnostic (FreeStyle #50 ea 12/15/21 Lite Strips) blood-glucose meter (FreeStyle #1 ea 12/15/21 Lite Meter kit) lancets 28 gauge (FreeStyle #100 ea 12/15/21 Lancets) albuterol sulfate 90 mcg/actuation 1 puff PO Q4H PRN bronchospasm 90 12/28/21 aerosol inhaler days #54 ea fluticasone propionate 110 1 puff PO BID 30 days #12 ea 12/28/21 mcg/actuation HFA aerosol inhaler (Flovent HFA) metoprolol succinate 100 mg 100 mg PO DAILY #90 tabs 12/31/21 tablet,extended release 24 hr atorvastatin 40 mg tablet 40 mg PO DAILY #90 tabs 02/18/22 insulin glargine U-300 conc 300 56 unit (0.1867 mL) subcut BID 30 04/01/22 unit/mL (3 mL) subcutaneous pen days #11.202 mL (Toujeo Max U-300 SoloStar) metformin 500 mg tablet 500 mg PO BID 90 days #180 tabs 04/01/22 gabapentin 100 mg capsule 200 mg PO BEDTIME 90 days #180 caps 04/29/22 fluticasone propionate 50 1 spray intranasal DAILY #16 grams 05/02/22 mcg/actuation nasal spray,suspension loratadine 10 mg tablet (Claritin) 10 mg PO DAILY PRN allergic 05/02/22 symptoms #30 tabs lorazepam 0.5 mg tablet 0.5 mg PO BID PRN anxiety 30 days 05/17/22 #60 tabs losartan 100 mg tablet 100 mg PO DAILY 90 days #90 tabs 05/17/22 olanzapine 2.5 mg tablet 2.5 mg PO BEDTIME PRN insomnia 90 05/17/22 days #90 tabs cholecalciferol (vitamin D3) 25 25 mcg PO DAILY 90 days #90 caps 05/26/22 mcg (1,000 unit) capsule terbinafine HCl 250 mg tablet 250 mg PO DAILY 90 days #90 tabs 07/14/22 glipizide 10 mg tablet 10 mg PO QAM 90 days #90 tabs 09/12/22 blood sugar diagnostic (Accu-Chek 1 strip miscellaneous BID 90 days 09/23/22 Faustina Plus test strips) #200 strips amlodipine 5 mg tablet 5 mg PO DAILY 90 days #90 tabs 09/24/22 albuterol sulfate 2.5 mg/3 mL 2.5 mg (3 mL) inhalation Q4-6H PRN 09/28/22 (0.083 %) solution for nebulization shortness of breath or wheezing #90 mL albuterol sulfate 90 mcg/actuation 1 inh inhalation QID PRN shortness 09/28/22 aerosol inhaler of breath or wheezing #8.5 grams prednisone 20 mg tablet 20 mg PO BID #10 tabs 09/28/22 Allergies Allergy/AdvReac Type Severity Reaction Status Date / Time gabapentin Allergy Mild Itching Verified 08/03/22 10:57 Review of Systems Review of Systems: Yes all other systems are reviewed and are negative PMFSH Past Medical History Medical History Annual physical exam CAD (coronary artery disease) CKD (chronic kidney disease) stage 3, GFR 30-59 ml/min Diabetes mellitus Essential hypertension Former smoker Former smoker Hyperparathyroidism Hypovitaminosis D retirement (current) use of insulin Microalbuminuria Moderate asthma Obese Pure hypercholesterolemia Surgical History H/O colonoscopy History of lipoma Family History Family History Father Diabetes Mother Diabetes Son No problems noted. Son No problems noted. Son No problems noted. Son No problems noted. Social History Social History Housing: House Alcohol intake: never Patient Tobacco Use Status: Former Tobacco user Tobacco use type: Cigarette e-Cigarette/Vaping Use: Never Used Second Hand Smoke Exposure: No Advance Directives: No Advance Directives Date on File: 07/30/20 service: No Current occupational status: retired Cognitive needs: No Hearing needs: No Vision needs: No Physical Exam Vital Signs: Vital Signs: Last Vital Signs Temp 100.7 F H 10/01/22 14:13 Pulse 96 10/01/22 14:13 Resp 18 10/01/22 14:13 BP 116/59 L 10/01/22 14:13 Pulse Ox 98 10/01/22 14:13 O2 Del Method 10/01/22 14:13 O2 Flow Rate 2 10/01/22 14:13 BMI result Body Mass Index 28.3 Const: General: cooperative and no acute distress Orientation/consciousness: oriented to person and oriented to place Limitations: no limitations HEENT: Head: Yes normal to inspection, Yes normocephalic and Yes atraumatic Ears: external ears normal General nose exam: Normal external nose present Face and sinus: Yes normal facial exam Mouth: Normal oral and palatal mucosa present Throat: Yes posterior oropharynx normal Eyes: General: appearance normal, both eyes and all related structures Pupils: Equal, round and reactive pupils present Neck: Neck: Yes normal visual inspection, Yes no lymphadenopathy, Yes trachea midline and Yes supple Chest: Chest palpation & inspection: normal inspection of the chest and normal palpation of entire chest wall Resp: Other: Normal respiratory effort, diffuse rhonchi, diffuse rales, no wheezing, breath sounds symmetric bilaterally. Cardio: Rate: regular rate Rhythm: regular rhythm Heart sounds: S1 normal heart sound present, S2 normal heart sound present and no murmurs GI: Inspection: Yes normal to inspection Palpation (GI): Soft to palpation, nontender and no guarding Auscultation: normal bowel sounds : General: Yes no CVA tenderness Back/Spine/Pelvis: Back: no CVA tenderness Skin: General skin exam: no rashes or lesions noted Neuro: General: oriented to person and oriented to place Cranial nerves: Yes CN's II-XII intact bilaterally and Yes Equal, round and reactive pupils present Cognition (Neuro): normal cognition Motor exam (neuro): 5/5 motor strength present throughout Extrem: General: Yes normal to inspection Psych: Appearance: grossly normal Speech and movement: Normal speech and movement present Affect: normal affect Attitude: cooperative Thought process: Normal thought process present Thought content: Normal thought content present Course Course Course Narrative: 72-year-old male who has been sick for approximately 9 days diagnosed with influenza a 3 days prior here in the emergency department, started on bronchodilators and prednisone with no improvement of his symptoms. Patient is complaining of shortness of breath cough, and weakness. Initial vital signs revealed a fever of 102.8, respiratory rate of 20 and O2 saturation of 91% on 2 L via nasal cannula. 1535: Laboratory evaluation: [place] [address] with 20% bands. Glucose elevated 294. Bilirubin elevated 1.1. Lactic acid elevated 2.1. ESR elevated 34. CRP elevated 23.03. COVID-19 was negative. Radiology evaluation: Chest x-ray two view: On my review of this x-ray the patient has a right-sided it lower lobe infiltrate. Radiology reading as follows: IMPRESSION: Patchy airspace opacities throughout the right lung are suspicious for pneumonia. Dictated By:Negro Nunez MD Patient was treated with Tylenol 975 mg orally with improvement of his fever pain. He was also given Zithromax 500 mg IV , ceftriaxone 1 g IV, normal saline IV x2 L. Patient was given Tamiflu 750 mg orally. I will discuss admission with the covering hospitalist. Medications Administered Generic Name Dose Route Start Last Admin Trade Name Freq PRN Reason Stop Dose Admin Azithromycin 500 mg/ Sodium 250 mls @ 125 mls/hr 10/01/22 14:12 10/01/22 15:33 Chloride IV 10/01/22 16:11 125 mls/hr ONCE ONE Administration Discontinued Medications Generic Name Dose Route Start Last Admin Trade Name Ivan PRN Reason Stop Dose Admin Acetaminophen 975 mg 10/01/22 13:13 10/01/22 13:29 Acetaminophen 325 Mg Tablet PO 10/01/22 13:14 975 mg ONCE STA Administration Sodium Chloride 1,000 mls @ 999 mls/hr 10/01/22 13:13 10/01/22 15:03 Ns IV 10/01/22 14:13 Infused .Q1H1M STA Infusion Sodium Chloride 1,000 mls @ 999 mls/hr 10/01/22 14:12 10/01/22 14:16 Ns IV 10/01/22 15:12 999 mls/hr .Q1H1M STA Administration Ceftriaxone Sodium 1 gm/ 50 mls @ 100 mls/hr 10/01/22 14:12 10/01/22 15:04 Sodium Chloride IV 10/01/22 14:41 Infused ONCE ONE Infusion Oseltamivir Phosphate 75 mg 10/01/22 14:13 10/01/22 14:24 Oseltamivir Phosphate 75 Mg Capsule PO 10/01/22 14:14 75 mg ONCE ONE Administration Critical Care Time Critical Care Time Critical Care Time: Yes Total Critical Care Time: 35 Attestation: Critical Care: The patient was critically ill with a high probability of imminent or life threatening deterioration. I spent greater than 30 minutes of discontinuous time evaluating the patient,delivering critical care at the bedside, discussing and evaluating pertinent data with consultants. Critical care time does not include time spent performing separately billable procedures or teaching. Total time spent performing critical care was 35 minutes. Discharge Plan Discharge Clinical Impression: Influenza A, Fever, Weakness Pneumonia Qualifiers: Laterality: right Lung location: lower lobe of lung Patient Disposition: Admitted As Inpatient
[2022-10-01] MEDS: Azithromycin 500 MG in 0.9 % Sodium Chloride 250 ML 125 MG IV (15:33)
[2022-10-01 15:59] LABS: Appearance Urine Clear; Color Urine Yellow; Glucose Urine UA 500 mg/dL (Negative); Leukocyte Esterase Urine Negative (Negative); Nitrite Urine Negative (Negative); PH 5.5 (5.0-9.0); Specific Gravity - Urine 1.025 (1.005-1.025); UMIC TRIGGER UACC YES; Urine Blood Moderate (2+) (Negative); Urine Ketones Trace mg/dL (Negative); Urine Protein 100 (2+) mg/dL (Neg-Trace)
[2022-10-01 16:22] LABS: Bacteria Urine Trace (None Seen); Hyaline Casts Urine 0-2 /LPF (0-2); RBC Urine 0-2 /HPF (0-2); Squamous Epithelial Cell Urine 0-2 /HPF (0-2); WBC Urine 0-5 /HPF (0-5)
[2022-10-01 16:33] LABS: ~Lactic Acid-LAB USE ONLY 1.5 mmol/L (0.5-2.0)
--- NOTE | 2022-10-01 16:44 | PHA.MEDREC ---
Pharmacy Consult ? Medication Reconciliation Pharmacy has completed the medication reconciliation. Spoke to patient and with interpreter deaf. Knew all medication
[2022-10-01 16:45] LABS: CDiff Gene PCR NEGATIVE (Negative)
--- NOTE | 2022-10-01 16:59 | P.HPHOSP_ITS ---
History of Present Illness Date of Service: 10/01/22 Attending physician on admission: Brenda Lancaster Chief Complaint: Shortness of breath and cough 72-year-old gentleman with past medical history significant for diabetes mellitus type 2, coronary artery disease, asthma, chronic kidney disease was seen at [facility] on 09/28/2022 with symptoms of shortness of breath and was diagnosed to have influenza A infection since symptoms were present a week prior to his presentation patient was not treated with Tamiflu, and was discharged home on prednisone and bronchodilators,patient return back to [facility] today due to persistent symptoms of shortness of breath, cough, productive of yellowish green phlegm, generalized weakness ,associated with dizziness, and diarrhea of 2-3 days duration watery stools with no blood, he denies associated nausea, vomiting, he also complains of right-sided chest discomfort mainly with coughing, patient workup in the emergency room revealed an elevated WBC count likely related to use of steroids, patient was noted to have a fever of 102.8 he was tachypneic tachycardic finger oximetry 91% on 2 L chest x-ray suggestive of right lung patchy opacities, CRP 23.03, creatinine of 2.05 with a baseline creatinine around 1.34, patient treated in the emergency room with 1 dose of Tamiflu, IV azithromycin, IV ceftriaxone and now being admitted to [facility] due to pneumonia. Review of Systems Review of Systems: General dizziness, fever and chills. CVS right-sided chest pain, no palpitation. 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 Son No problems noted. Son No problems noted. Son No problems noted. Surgical History H/O colonoscopy History of lipoma Social History Housing: House Alcohol intake: current Alcohol intake frequency: holidays/special occasions only Patient Tobacco Use Status: Former Tobacco user Tobacco use type: Cigarette Smoked in Last 30 Days: No e-Cigarette/Vaping Use: Never Used Second Hand Smoke Exposure: No Use of substances other than those prescribed or required for medical reasons: No Advance Directives: No Advance Directives Date on File: 07/30/20 service: No Current occupational status: retired Cognitive needs: No Hearing needs: No Vision needs: No Meds Allergies Allergy/AdvReac Type Severity Reaction Status Date / Time gabapentin Allergy Mild Itching Verified 08/03/22 10:57 Active Medications: Current Medications Acetaminophen (Acetaminophen 325 Mg Tablet) 650 mg PO Q6H PRN PRN Reason: Pain, Mild (Pain Scale 1-3) Albuterol Sulfate (Albuterol Sulfate 90 Mcg 8 Gm Inhaler) 1 puff INHALE QID PRN PRN Reason: shortness of breath or wheezing Amlodipine Besylate (Amlodipine Besylate 5 Mg Tablet) 5 mg PO DAILY [facility]; Protocol Atorvastatin Calcium (Atorvastatin Calcium 40 Mg Tablet) 40 mg PO DAILY [facility] Dextrose (Dextrose 50 % 25 Gm/50 Ml Syringe) 25 gm IVPUSH Q15M PRN; Protocol PRN Reason: per Hypoglycemia Standing Ord. Enoxaparin Sodium (Enoxaparin Sodium 40 Mg/0.4 Ml Syringe) 40 mg SUBCUT Q24H [facility] Fluticasone/Vilanterol (Fluticasone/Vilanterol 100/25 Blst.W.Dev) 1 puff INHALE RDAILY [facility] Gabapentin (Gabapentin 100 Mg Capsule) 200 mg PO BEDTIME [facility] Glipizide (Glipizide 10 Mg Tablet) 10 mg PO QAM [facility] Glucose (Glucose Gel 15 Gm Gel..Gram.) 15 gm PO Q15M PRN; Protocol PRN Reason: per Hypoglycemia Standing Ord. Guaifenesin/Dextromethorphan (Guaifenesin Dm 100/10/5 Ml 5 Ml Syrup) 10 ml PO TID [facility] Ceftriaxone Sodium 1 gm/ (Sodium Chloride) 50 mls @ 100 mls/hr IV Q24H [facility] Azithromycin 500 mg/ Sodium (Chloride) 250 mls @ 125 mls/hr IV Q24H [facility] Insulin Human Lispro (Insulin Lispro 100 Unit/Ml 3 Ml Vial) 0 unit SUBCUT QIDACHS [facility]; Protocol Melatonin (Melatonin 3 Mg Tablet) 3 mg PO BEDTIME PRN PRN Reason: Insomnia Metoprolol Succinate (Metoprolol Succinate Er 100 Mg Tab.Er.24h) 100 mg PO DAILY [facility]; Protocol Non-Formulary Medication (Terbinafine Hcl) 250 mg PO DAILY [facility] Olanzapine (Olanzapine 2.5 Mg Tablet) 2.5 mg PO BEDTIME PRN PRN Reason: insomnia Ondansetron HCl (Ondansetron Hcl 4 Mg/2 Ml Vial) 4 mg IVPUSH Q8H PRN PRN Reason: Nausea and Vomiting Sodium Chloride (0.9 % Sodium Chloride Flush 3 Ml Syringe) 3 ml IVFLUSH QSHIFT [facility] Vitamin D (Cholecalciferol (Vitamin D3) 25 Mcg Tablet) 25 mcg PO DAILY [facility] Home Medications Medication Instructions Recorded Confirmed Last Taken Type insulin glargine U-300 conc 300 56 unit subcut BEDTIME 10/01/22 10/01/22 09/30/22 History unit/mL (3 mL) subcutaneous pen (Toujeo Max U-300 SoloStar) prednisone 20 mg tablet 1 tab PO BID 10/01/22 10/01/22 10/01/22 History Physical Exam Vital Signs and Narrative: Vital Signs: Last Vital Signs Temp 99.0 F 10/01/22 16:00 Pulse 91 10/01/22 16:00 Resp 16 10/01/22 16:00 BP 146/70 H 10/01/22 16:00 Pulse Ox 95 10/01/22 16:00 O2 Del Method 10/01/22 16:00 O2 Flow Rate 2 10/01/22 14:13 BMI result Body Mass Index 28.3 Const: Other: General awake alert x3, resting comfortably in no acute distress. HEENT PERRLA,EOMI Neck supple no JVD. CVS regular rate rhythm, Respiratory lungs bilateral rhonchi , no respiratory distress, no use of accessory muscle, no rales. Gastrointestinal abdomen soft, nontender, bowel sounds audible, no guarding , no rigidity. Extremities no edema. Neuro nonfocal Skin no rash Psych appropriate affect Results Labs CBC and Chem 7: 10/01/22 13:25 10/01/22 13:25 Labs: Laboratory Results - last 24 hr 10/01/22 10/01/22 10/01/22 13:25 13:25 13:25 MCV 82.3 MCH 28.0 MCHC 34.0 RDW 13.6 Plt Count 285 MPV 11.3 Immature Gran % (Auto) Cancelled Neut % (Auto) Cancelled Lymph % (Auto) Cancelled [place] % (Auto) Cancelled Eos % (Auto) Cancelled Baso % (Auto) Cancelled Lymph # (Auto) Cancelled [place] # (Auto) Cancelled Eos # (Auto) Cancelled Baso # (Auto) Cancelled Abs Immat Gran (auto) Cancelled Absolute Neuts (auto) Cancelled Absolute Nucleated RBC 0.000 Nucleated RBC % (auto) 0.0 Neutrophils % (Manual) 50 Band Neutrophils % 20 H Lymphocytes % (Manual) 11 L Atypical Lymphs % (Man) 2 Monocytes % (Manual) 16 H Metamyelocytes % 1 Abs Neuts (Manual) 13.2 H Lymphocytes # (Manual) 2.1 Atyp Lymphs # (Manual) 0.4 Monocytes # (Manual) 3.0 H Metamyelocytes # 0.2 Platelet Estimate NORMAL Plt Morphology Comment NORMAL RBC Morphology NOTED Ovalocytes 1+ (5-14) ESR PT INR APTT Anion Gap 13 Estim Creat Clear Calc 31.2 Estimated GFR 32 Random Glucose 294 H Lactic Acid Lactic Acid F/U @ 2Hr Calcium 8.9 Total Bilirubin 1.1 H AST 25 ALT 19 Alkaline Phosphatase 108 Troponin I High Sens C-Reactive Protein 23.03 H B-Natriuretic Peptide Total Protein 6.2 L Albumin 3.7 Lipase 26 Urine Color Urine Appearance Urine pH Ur Specific [place] Urine Protein Urine Glucose (UA) Urine Ketones Urine Blood Urine Nitrite Ur Leukocyte Esterase Urine RBC Urine WBC Ur Squamous Epith Cells Urine Bacteria Hyaline Casts C. difficile Tox B Gene COVID-19 ([facility]ANSA) Negative COVID-19 Clin Com See Note 10/01/22 10/01/22 10/01/22 13:25 13:25 13:25 MCV MCH MCHC RDW Plt Count MPV Immature Gran % (Auto) Neut % (Auto) Lymph % (Auto) [place] % (Auto) Eos % (Auto) Baso % (Auto) Lymph # (Auto) [place] # (Auto) Eos # (Auto) Baso # (Auto) Abs Immat Gran (auto) Absolute Neuts (auto) Absolute Nucleated RBC Nucleated RBC % (auto) Neutrophils % (Manual) Band Neutrophils % Lymphocytes % (Manual) Atypical Lymphs % (Man) Monocytes % (Manual) Metamyelocytes % Abs Neuts (Manual) Lymphocytes # (Manual) Atyp Lymphs # (Manual) Monocytes # (Manual) Metamyelocytes # Platelet Estimate Plt Morphology Comment RBC Morphology Ovalocytes ESR 34 H PT 14.5 H INR 1.3 H APTT 27.8 Anion Gap Estim Creat Clear Calc Estimated GFR Random Glucose Lactic Acid 2.1 H* Lactic Acid F/U @ 2Hr Calcium Total Bilirubin AST ALT Alkaline Phosphatase Troponin I High Sens C-Reactive Protein B-Natriuretic Peptide Total Protein Albumin Lipase Urine Color Urine Appearance Urine pH Ur Specific [place] Urine Protein Urine Glucose (UA) Urine Ketones Urine Blood Urine Nitrite Ur Leukocyte Esterase Urine RBC Urine WBC Ur Squamous Epith Cells Urine Bacteria Hyaline Casts C. difficile Tox B Gene COVID-19 (HANSA) COVID-19 [facility] 10/01/22 10/01/22 10/01/22 13:25 13:42 15:48 MCV MCH MCHC RDW Plt Count MPV Immature Gran % (Auto) Neut % (Auto) Lymph % (Auto) [place] % (Auto) Eos % (Auto) Baso % (Auto) Lymph # (Auto) [place] # (Auto) Eos # (Auto) Baso # (Auto) Abs Immat Gran (auto) Absolute Neuts (auto) Absolute Nucleated RBC Nucleated RBC % (auto) Neutrophils % (Manual) Band Neutrophils % Lymphocytes % (Manual) Atypical Lymphs % (Man) Monocytes % (Manual) Metamyelocytes % Abs Neuts (Manual) Lymphocytes # (Manual) Atyp Lymphs # (Manual) Monocytes # (Manual) Metamyelocytes # Platelet Estimate Plt Morphology Comment RBC Morphology Ovalocytes ESR PT INR APTT Anion Gap Estim Creat Clear Calc Estimated GFR Random Glucose Lactic Acid Lactic Acid F/U @ 2Hr Calcium Total Bilirubin AST ALT Alkaline Phosphatase Troponin I High Sens 19.7 D C-Reactive Protein B-Natriuretic Peptide 272 H Total Protein Albumin Lipase Urine Color Urine Appearance Urine pH Ur Specific [place] Urine Protein Urine Glucose (UA) Urine Ketones Urine Blood Urine Nitrite Ur Leukocyte Esterase Urine RBC Urine WBC Ur Squamous Epith Cells Urine Bacteria Hyaline Casts C. difficile Tox B Gene NEGATIVE COVID-19 ([facility]ANSA) COVID-19 [facility] 10/01/22 10/01/22 15:50 16:14 MCV MCH MCHC RDW Plt Count MPV Immature Gran % (Auto) Neut % (Auto) Lymph % (Auto) [place] % (Auto) Eos % (Auto) Baso % (Auto) Lymph # (Auto) [place] # (Auto) Eos # (Auto) Baso # (Auto) Abs Immat Gran (auto) Absolute Neuts (auto) Absolute Nucleated RBC Nucleated RBC % (auto) Neutrophils % (Manual) Band Neutrophils % Lymphocytes % (Manual) Atypical Lymphs % (Man) Monocytes % (Manual) Metamyelocytes % Abs Neuts (Manual) Lymphocytes # (Manual) Atyp Lymphs # (Manual) Monocytes # (Manual) Metamyelocytes # Platelet Estimate Plt Morphology Comment RBC Morphology Ovalocytes ESR PT INR APTT Anion Gap Estim Creat Clear Calc Estimated GFR Random Glucose Lactic Acid Lactic Acid F/U @ 2Hr 1.5 Calcium Total Bilirubin AST ALT Alkaline Phosphatase Troponin I High Sens C-Reactive Protein B-Natriuretic Peptide Total Protein Albumin Lipase Urine Color Yellow Urine Appearance Clear Urine pH 5.5 Ur Specific [place] 1.025 Urine Protein 100 (2+) H Urine Glucose (UA) 500 H Urine Ketones Trace Urine Blood Moderate (2+) H Urine Nitrite Negative Ur Leukocyte Esterase Negative Urine RBC 0-2 Urine WBC 0-5 Ur Squamous Epith Cells 0-2 Urine Bacteria Trace Hyaline Casts 0-2 C. difficile Tox B Gene COVID-19 ([facility]ANSA) COVID-19 Clin Com Imaging Radiologist's Impressions: Impressions Chest X-Ray 10/01/22 13:55 IMPRESSION: Patchy airspace opacities throughout the right lung are suspicious for pneumonia. Assessment and Plan (1) Influenza A: Status: Acute (2) Pneumonia: Qualifiers: Laterality: right Lung location: lower lobe of lung Status: Acute (3) CKD (chronic kidney disease) stage 3, GFR 30-59 ml/min: Qualifiers: Chronic kidney disease stage 3 subtype: stage 3a (GFR 45-59) Qualified Code(s): N18.31 - Chronic kidney disease, stage 3a Status: Acute Plan 72-year-old gentleman with past medical history of diabetes mellitus type 2, coronary artery disease, asthma, chronic kidney disease stage 3 recently diagnosed to have influenza a on September 28 presented to [facility] with persistent shortness of breath cough dizziness diarrhea and right-sided chest discomfort with coughing patient diagnosed to have pneumonia, acute on chronic kidney disease therefore being admitted to [facility]. Sepsis due to influenza A with secondary bacterial pneumonia Diagnosed to have sepsis due to fever and leukocytosis Since influenza A diagnose several days ago and patient is symptomatic for 9 days will hold Tamiflu Will treat patient with IV ceftriaxone and azithromycin , cough medication and oxygen patient not on home O2 venous tolerated Acute on chronic kidney disease stage 3 Likely due to diarrhea will hold losartan, received 2 L of IV fluid in the ED follow bmp Hypertension continue amlodipine and metoprolol, hold losartan follow-up blood pressure Mild acute asthma exacerbation with baseline persistent asthma will place on updraft treatment, IV steroids follow clinical course Diabetes mellitus on insulin hold metformin, place on diabetic diet insulin sliding scale, placed on Lantus 44 units, at home patient take Toujeo 56 units, continue glipizide Mood disorder continue olanzapine DVT prophylaxis with Lovenox Code status full code In my clinical judgment patient need 2 night inpatient stay due to sepsis related to pneumonia requiring IV antibiotics and supportive care. Time Spent With Patient Time: Total time managing care of this patient today ____ minutes. Quality Stroke Does the patient have a stroke diagnosis?: No VTE Prior VTE?: No VTE Risk Level:: Medical - moderate - high VTE Device Contraindication: Treatment Not Indicated VTE Drug Contraindication: N/A - Med Ordered
[2022-10-01] MEDS: Enoxaparin Sodium 40 MG/0.4 ML SYRINGE SUBCUT (17:45)
--- NOTE | 2022-10-01 18:46 | PC.NURSE ---
Awaiting glipizide from pharmacy, called at [phone]
[2022-10-01] MEDS: glipiZIDE 10 MG TABLET PO (18:57)
[2022-10-01] MEDS: methylPREDNISolone Sod Succ 40 MG/ML VIAL IVPUSH (18:57)
[2022-10-01] MEDS: Albuterol/Iprat 2.5/0.5MG 3 ML AMPUL.NEB INHALE (19:25)
--- NOTE | 2022-10-01 19:40 | PC.NURSE ---
pt continues to rest comfortably on stretcher, pt reports he has 6/10 right sided flank pain, will administer tylenol when next dose available. pt continues to have diarrhea.
[2022-10-01 20:29] LABS: Glucose, Whole Blood 269 mg/dL (60-115)
[2022-10-01] MEDS: Gabapentin 100 MG CAPSULE 200 MG PO (20:51)
[2022-10-01] MEDS: Insulin Lispro 100 UNIT/ML 3 ML VIAL SUBCUT (20:52)
[2022-10-01] MEDS: guaiFENesin DM 100/10/5 ML 5 ML SYRUP 10 ML PO (20:52)
[2022-10-01] MEDS: Insulin Glargine,Hum.rec.anlog 100 UNIT/ML 10 ML VIAL 44 UNIT SUBCUT (20:52)
[2022-10-01] MEDS: Acetaminophen 325 MG TABLET 650 MG PO (20:52)
[2022-10-02] VITALS (8 sets, daily range): BP systolic 132–144; BP diastolic 61–73; PULSE 83–97; RESP 16–20; TEMP 36.7–37.4; O2SAT 90–97
[2022-10-02] MEDS: 0.9 % Sodium Chloride Flush 3 ML SYRINGE IVFLUSH ×2 (00:48→08:50)
[2022-10-02] MEDS: methylPREDNISolone Sod Succ 40 MG/ML VIAL IVPUSH ×2 (06:06→17:04)
[2022-10-02] MEDS: Acetaminophen 325 MG TABLET 650 MG PO ×2 (06:09→17:05)
[2022-10-02 07:44] LABS: Glucose, Whole Blood 281 mg/dL (60-115)
[2022-10-02] MEDS: Albuterol/Iprat 2.5/0.5MG 3 ML AMPUL.NEB INHALE ×4 (08:09→20:23)
[2022-10-02 08:28] LABS: Anion Gap 13 (12-20); Blood Urea Nitrogen 28 mg/dL (9-16); Calcium 8.5 mg/dL (8.4-10.2); Carbon Dioxide 26 mmol/L (22-29); Chloride 103 mmol/L (96-108); Creatinine Clr Calc Pharmacy 37.8; Estimated Glomerular Filt Rate 40; Glucose Random 290 mg/dL (60-115); Potassium 4.2 mmol/L (3.3-5.1); Sodium 138 mmol/L (135-145)
[2022-10-02] MEDS: Cholecalciferol (Vitamin D3) 25 MCG TABLET PO (08:49)
[2022-10-02] MEDS: guaiFENesin DM 100/10/5 ML 5 ML SYRUP 10 ML PO ×3 (08:49→21:50)
[2022-10-02] MEDS: glipiZIDE 10 MG TABLET PO (08:49)
[2022-10-02] MEDS: Atorvastatin Calcium 40 MG TABLET PO (08:49)
[2022-10-02] MEDS: Insulin Lispro 100 UNIT/ML 3 ML VIAL SUBCUT ×4 (08:49→21:51)
[2022-10-02] MEDS: amLODIPine Besylate 5 MG TABLET PO (08:49)
[2022-10-02] MEDS: Metoprolol Succinate ER 100 MG TAB.ER.24H PO (08:49)
--- NOTE | 2022-10-02 10:55 | HO.PM.IMPN ---
Subjective Subjective Date of Service: 10/02/22 Physical Exam Vital Signs: Vital Signs: Last Vital Signs Temp 99.3 F 10/02/22 08:00 Pulse 94 10/02/22 08:13 Resp 16 10/02/22 08:13 BP 144/72 H 10/02/22 08:00 Pulse Ox 95 10/02/22 08:00 O2 Del Method 10/02/22 08:00 O2 Flow Rate 2 10/02/22 03:23 Oxygen Flow Rate 2 10/01/22 16:59 BMI result Body Mass Index 28.3 Objective Data Active Medications Acetaminophen (Acetaminophen 325 Mg Tablet) 650 mg PO Q6H PRN PRN Reason: Pain, Mild (Pain Scale 1-3) Last Admin: 10/02/22 06:09 Dose: 650 mg Documented By: ABHISHEK Albuterol Sulfate (Albuterol Sulfate 90 Mcg 8 Gm Inhaler) 1 puff INHALE QID PRN PRN Reason: shortness of breath or wheezing Albuterol/Ipratropium (Albuterol/Iprat 2.5/0.5mg 3 Ml Ampul.Neb) 3 ml INHALE QID [facility] Last Admin: 10/02/22 08:09 Dose: 3 ml Documented By: LILY Amlodipine Besylate (Amlodipine Besylate 5 Mg Tablet) 5 mg PO DAILY [facility]; Protocol Last Admin: 10/02/22 08:49 Dose: 5 mg Documented By: DONI Atorvastatin Calcium (Atorvastatin Calcium 40 Mg Tablet) 40 mg PO DAILY [facility] Last Admin: 10/02/22 08:49 Dose: 40 mg Documented By: DONI Dextrose (Dextrose 50 % 25 Gm/50 Ml Syringe) 25 gm IVPUSH Q15M PRN; Protocol PRN Reason: per Hypoglycemia Standing Ord. Enoxaparin Sodium (Enoxaparin Sodium 40 Mg/0.4 Ml Syringe) 40 mg SUBCUT Q24H [facility] Last Admin: 10/01/22 17:45 Dose: 40 mg Documented By: JUANCHO Fluticasone/Vilanterol (Fluticasone/Vilanterol 100/25 Blst.W.Dev) 1 puff INHALE RDAILY [facility] Gabapentin (Gabapentin 100 Mg Capsule) 200 mg PO BEDTIME [facility] Last Admin: 10/01/22 20:51 Dose: 200 mg Documented By: JUANCHO Glipizide (Glipizide 10 Mg Tablet) 10 mg PO DAILY [facility] Last Admin: 10/02/22 08:49 Dose: 10 mg Documented By: DONI Glucose (Glucose Gel 15 Gm Gel..Gram.) 15 gm PO Q15M PRN; Protocol PRN Reason: per Hypoglycemia Standing Ord. Guaifenesin/Dextromethorphan (Guaifenesin Dm 100/10/5 Ml 5 Ml Syrup) 10 ml PO TID [facility] Last Admin: 10/02/22 08:49 Dose: 10 ml Documented By: DONI Ceftriaxone Sodium 1 gm/ (Sodium Chloride) 50 mls @ 100 mls/hr IV Q24H [facility] Azithromycin 500 mg/ Sodium (Chloride) 250 mls @ 125 mls/hr IV Q24H [facility] Insulin Glargine (Insulin Glargine,Hum.Rec.Anlog 100 Unit/Ml 10 Ml Vial) 44 unit SUBCUT BEDTIME [facility] Last Admin: 10/01/22 20:52 Dose: 44 unit Documented By: JUANCHO Insulin Human Lispro (Insulin Lispro 100 Unit/Ml 3 Ml Vial) 0 unit SUBCUT QIDACHS [facility]; Protocol Last Admin: 10/02/22 08:49 Dose: 6 unit Documented By: DONI Melatonin (Melatonin 3 Mg Tablet) 3 mg PO BEDTIME PRN PRN Reason: Insomnia Methylprednisolone Sodium Succinate (Methylprednisolone Sod Succ 40 Mg/Ml Vial) 40 mg IVPUSH Q12H [facility] Last Admin: 10/02/22 06:06 Dose: 40 mg Documented By: ABHISHEK Metoprolol Succinate (Metoprolol Succinate Er 100 Mg Tab.Er.24h) 100 mg PO DAILY [facility]; Protocol Last Admin: 10/02/22 08:49 Dose: 100 mg Documented By: DONI Non-Formulary Medication (Terbinafine Hcl) 250 mg PO DAILY [facility] Olanzapine (Olanzapine 2.5 Mg Tablet) 2.5 mg PO BEDTIME PRN PRN Reason: insomnia Ondansetron HCl (Ondansetron Hcl 4 Mg/2 Ml Vial) 4 mg IVPUSH Q8H PRN PRN Reason: Nausea and Vomiting Sodium Chloride (0.9 % Sodium Chloride Flush 3 Ml Syringe) 3 ml IVFLUSH QSHIFT [facility] Last Admin: 10/02/22 08:50 Dose: 3 ml Documented By: DONI Vitamin D (Cholecalciferol (Vitamin D3) 25 Mcg Tablet) 25 mcg PO DAILY [facility] Last Admin: 10/02/22 08:49 Dose: 25 mcg Documented By: DONI Labs CBC & Chem 7: 10/01/22 13:25 10/02/22 08:02 Labs: Laboratory Results - last 24 hr 10/01/22 10/01/22 10/01/22 13:25 13:25 13:25 MCV 82.3 MCH 28.0 MCHC 34.0 RDW 13.6 Plt Count 285 MPV 11.3 Immature Gran % (Auto) Cancelled Neut % (Auto) Cancelled Lymph % (Auto) Cancelled Clare % (Auto) Cancelled Eos % (Auto) Cancelled Baso % (Auto) Cancelled Lymph # (Auto) Cancelled Clare # (Auto) Cancelled Eos # (Auto) Cancelled Baso # (Auto) Cancelled Abs Immat Gran (auto) Cancelled Absolute Neuts (auto) Cancelled Absolute Nucleated RBC 0.000 Nucleated RBC % (auto) 0.0 Neutrophils % (Manual) 50 Band Neutrophils % 20 H Lymphocytes % (Manual) 11 L Atypical Lymphs % (Man) 2 Monocytes % (Manual) 16 H Metamyelocytes % 1 Abs Neuts (Manual) 13.2 H Lymphocytes # (Manual) 2.1 Atyp Lymphs # (Manual) 0.4 Monocytes # (Manual) 3.0 H Metamyelocytes # 0.2 Platelet Estimate NORMAL Plt Morphology Comment NORMAL RBC Morphology NOTED Ovalocytes 1+ (5-14) ESR PT INR APTT Anion Gap 13 Estim Creat Clear Calc 31.2 Estimated GFR 32 POC Glucose Random Glucose 294 H Lactic Acid Lactic Acid F/U @ 2Hr Calcium 8.9 Total Bilirubin 1.1 H AST 25 ALT 19 Alkaline Phosphatase 108 Troponin I High Sens C-Reactive Protein 23.03 H B-Natriuretic Peptide Total Protein 6.2 L Albumin 3.7 Lipase 26 Urine Color Urine Appearance Urine pH Ur Specific [place] Urine Protein Urine Glucose (UA) Urine Ketones Urine Blood Urine Nitrite Ur Leukocyte Esterase Urine RBC Urine WBC Ur Squamous Epith Cells Urine Bacteria Hyaline Casts C. difficile Tox B Gene COVID-19 ([facility]) Negative COVID-19 Clin Com See Note 10/01/22 10/01/22 10/01/22 13:25 13:25 13:25 MCV MCH MCHC RDW Plt Count MPV Immature Gran % (Auto) Neut % (Auto) Lymph % (Auto) Clare % (Auto) Eos % (Auto) Baso % (Auto) Lymph # (Auto) Clare # (Auto) Eos # (Auto) Baso # (Auto) Abs Immat Gran (auto) Absolute Neuts (auto) Absolute Nucleated RBC Nucleated RBC % (auto) Neutrophils % (Manual) Band Neutrophils % Lymphocytes % (Manual) Atypical Lymphs % (Man) Monocytes % (Manual) Metamyelocytes % Abs Neuts (Manual) Lymphocytes # (Manual) Atyp Lymphs # (Manual) Monocytes # (Manual) Metamyelocytes # Platelet Estimate Plt Morphology Comment RBC Morphology Ovalocytes ESR 34 H PT 14.5 H INR 1.3 H APTT 27.8 Anion Gap Estim Creat Clear Calc Estimated GFR POC Glucose Random Glucose Lactic Acid 2.1 H* Lactic Acid F/U @ 2Hr Calcium Total Bilirubin AST ALT Alkaline Phosphatase Troponin I High Sens C-Reactive Protein B-Natriuretic Peptide Total Protein Albumin Lipase Urine Color Urine Appearance Urine pH Ur Specific [place] Urine Protein Urine Glucose (UA) Urine Ketones Urine Blood Urine Nitrite Ur Leukocyte Esterase Urine RBC Urine WBC Ur Squamous Epith Cells Urine Bacteria Hyaline Casts C. difficile Tox B Gene COVID-19 ([facility]) COVID-19 Clin Com 10/01/22 10/01/22 10/01/22 13:25 13:42 15:48 MCV MCH MCHC RDW Plt Count MPV Immature Gran % (Auto) Neut % (Auto) Lymph % (Auto) Clare % (Auto) Eos % (Auto) Baso % (Auto) Lymph # (Auto) Clare # (Auto) Eos # (Auto) Baso # (Auto) Abs Immat Gran (auto) Absolute Neuts (auto) Absolute Nucleated RBC Nucleated RBC % (auto) Neutrophils % (Manual) Band Neutrophils % Lymphocytes % (Manual) Atypical Lymphs % (Man) Monocytes % (Manual) Metamyelocytes % Abs Neuts (Manual) Lymphocytes # (Manual) Atyp Lymphs # (Manual) Monocytes # (Manual) Metamyelocytes # Platelet Estimate Plt Morphology Comment RBC Morphology Ovalocytes ESR PT INR APTT Anion Gap Estim Creat Clear Calc Estimated GFR POC Glucose Random Glucose Lactic Acid Lactic Acid F/U @ 2Hr Calcium Total Bilirubin AST ALT Alkaline Phosphatase Troponin I High Sens 19.7 D C-Reactive Protein B-Natriuretic Peptide 272 H Total Protein Albumin Lipase Urine Color Urine Appearance Urine pH Ur Specific [place] Urine Protein Urine Glucose (UA) Urine Ketones Urine Blood Urine Nitrite Ur Leukocyte Esterase Urine RBC Urine WBC Ur Squamous Epith Cells Urine Bacteria Hyaline Casts C. difficile Tox B Gene NEGATIVE COVID-19 ([facility]) COVID-19 [employer]. 10/01/22 10/01/22 10/01/22 15:50 16:14 20:26 MCV MCH MCHC RDW Plt Count MPV Immature Gran % (Auto) Neut % (Auto) Lymph % (Auto) Clare % (Auto) Eos % (Auto) Baso % (Auto) Lymph # (Auto) Clare # (Auto) Eos # (Auto) Baso # (Auto) Abs Immat Gran (auto) Absolute Neuts (auto) Absolute Nucleated RBC Nucleated RBC % (auto) Neutrophils % (Manual) Band Neutrophils % Lymphocytes % (Manual) Atypical Lymphs % (Man) Monocytes % (Manual) Metamyelocytes % Abs Neuts (Manual) Lymphocytes # (Manual) Atyp Lymphs # (Manual) Monocytes # (Manual) Metamyelocytes # Platelet Estimate Plt Morphology Comment RBC Morphology Ovalocytes ESR PT INR APTT Anion Gap Estim Creat Clear Calc Estimated GFR POC Glucose 269 H Random Glucose Lactic Acid Lactic Acid F/U @ 2Hr 1.5 Calcium Total Bilirubin AST ALT Alkaline Phosphatase Troponin I High Sens C-Reactive Protein B-Natriuretic Peptide Total Protein Albumin Lipase Urine Color Yellow Urine Appearance Clear Urine pH 5.5 Ur Specific [place] 1.025 Urine Protein 100 (2+) H Urine Glucose (UA) 500 H Urine Ketones Trace Urine Blood Moderate (2+) H Urine Nitrite Negative Ur Leukocyte Esterase Negative Urine RBC 0-2 Urine WBC 0-5 Ur Squamous Epith Cells 0-2 Urine Bacteria Trace Hyaline Casts 0-2 C. difficile Tox B Gene COVID-19 ([facility]) COVID-19 [employer] Com 10/02/22 10/02/22 07:40 08:02 MCV MCH MCHC RDW Plt Count MPV Immature Gran % (Auto) Neut % (Auto) Lymph % (Auto) Clare % (Auto) Eos % (Auto) Baso % (Auto) Lymph # (Auto) Clare # (Auto) Eos # (Auto) Baso # (Auto) Abs Immat Gran (auto) Absolute Neuts (auto) Absolute Nucleated RBC Nucleated RBC % (auto) Neutrophils % (Manual) Band Neutrophils % Lymphocytes % (Manual) Atypical Lymphs % (Man) Monocytes % (Manual) Metamyelocytes % Abs Neuts (Manual) Lymphocytes # (Manual) Atyp Lymphs # (Manual) Monocytes # (Manual) Metamyelocytes # Platelet Estimate Plt Morphology Comment RBC Morphology Ovalocytes ESR PT INR APTT Anion Gap 13 Estim Creat Clear Calc 37.8 Estimated GFR 40 POC Glucose 281 H Random Glucose 290 H D Lactic Acid Lactic Acid F/U @ 2Hr Calcium 8.5 Total Bilirubin AST ALT Alkaline Phosphatase Troponin I High Sens C-Reactive Protein B-Natriuretic Peptide Total Protein Albumin Lipase Urine Color Urine Appearance Urine pH Ur Specific [place] Urine Protein Urine Glucose (UA) Urine Ketones Urine Blood Urine Nitrite Ur Leukocyte Esterase Urine RBC Urine WBC Ur Squamous Epith Cells Urine Bacteria Hyaline Casts C. difficile Tox B Gene COVID-19 ([facility]) COVID-19 Clin Com Assessment and Plan (1) Influenza A: Status: Acute Plan 72-year-old gentleman with past medical history of diabetes mellitus type 2, coronary artery disease, asthma, chronic kidney disease stage 3 recently diagnosed to have influenza a on September 28 presented to [facility] with persistent shortness of breath cough dizziness diarrhea and right-sided chest discomfort with coughing patient diagnosed to have pneumonia, acute on chronic kidney disease therefore being admitted to [facility]. Sepsis secondary to to influenza A with secondary bacterial pneumonia Diagnosed to have sepsis due to fever and leukocytosis s/p treatment with Tamiflu for previous influenza a diagnosis Will treat patient with IV ceftriaxone and azithromycin cough medication oxygen patient not on home O2 venous tolerated Acute on chronic kidney disease stage 3 Likely due to diarrhea will hold losartan received 2 L of IV fluid in the ED follow bmp Hypertension continue amlodipine and metoprolol, hold losartan follow-up blood pressure Mild acute asthma exacerbation with baseline persistent asthma will place on updraft treatment, IV steroids follow clinical course Diabetes mellitus type 2 Sliding scale, ADA diet Chronic kidney disease stage 3 B Mildly above baseline Follow Mood disorder continue olanzapine DVT prophylaxis with Lovenox Attending Dr. Conteh Code status full code In my clinical judgment patient need 2 night inpatient stay due to sepsis related to pneumonia requiring IV antibiotics and supportive care. Time Spent With Patient Time: Total time managing care of this patient today ____ minutes. Quality Stroke Does the patient have a stroke diagnosis?: No VTE Prior VTE?: No VTE Risk Level:: Medical - moderate - high VTE Device Contraindication: Treatment Not Indicated VTE Drug Contraindication: N/A - Med Ordered
[2022-10-02 11:34] LABS: Glucose, Whole Blood 349 mg/dL (60-115)
[2022-10-02] MEDS: cefTRIAXone sodium 1 GM in 0.9 % Sodium Chloride 50 ML IV (14:12)
--- NOTE | 2022-10-02 14:14 | PHA.PROG ---
Admission Date/Time: October 01, 2022 16:41 Indication: Bacteremia Weight in k.111 kg Adjusted body weight in K.4 kg Spicer body weight in K.11 kg Obesity Dosing Indication % IBW: 125% Serum Creatinine - Last 168 Hours 10/01/22 12 13:25 08:02 Creatinine 2.05 H 1.69 H Estimated CrCl and GFR - Last 168 Hours 10/01/22 10/02/22 13:25 08:02 Estim Creat Clear Calc 31.2 37.8 Estimated GFR 32 40 Vancomycin Loading Dose: 2000 mg Current Vancomycin Dosing Regimen: 1000 mg Q24H Date and Time for next Vancomycin Level to be drawn: 10/05 @ 1300 Pharmacist Comments on Vancomycin Plan: Patient is scheduled to receive loading dose vancoming 2000 mg. Maintenance dose vanco 1000 mg Q24H scheduled to start 10/03 @ 1500. Expected AUC 492 with a trough of 15.7. Trough to be drawn prior to 4th dose Pharmacy will monitor renal function daily. Berta Stuart, Asa Vancomycin dosing will take advantage of [employer] as a clinical decision support tool that uses Bayesian modeling to calculate individual patient's pharmacokinetic parameters and forecast the patient's drug concentration time course with the target goal AUC 24 range of 400 - 600 mg/L/hr.
[2022-10-02] MEDS: Azithromycin 500 MG in 0.9 % Sodium Chloride 250 ML 125 MG IV (15:03)
--- NOTE | 2022-10-02 15:20 | MHC.CM.PN ---
IMM DELIVERED CM MET WITH PT AND JANITORIAL TECH. LIVES IN SECOND FLOOR APT WITH . [facility]DEPEND[facility] AT [facility]. USES NO DME OR SERVICES. PT BELIEVES HE HAS HCP AT PCP OFFICE,DECLINES TO DO A NEW ONE. +COVID VAX X [address] SIMS AT [facility] [place]. DP:HOME NO SERVICES BUT OPEN TO [facility] SHOULD IT BE RECOMMENDED. SON WILL TRANSPORT
[2022-10-02 16:30] LABS: Glucose, Whole Blood 311 mg/dL (60-115)
[2022-10-02] MEDS: Enoxaparin Sodium 40 MG/0.4 ML SYRINGE SUBCUT (17:05)
[2022-10-02 20:18] LABS: Glucose, Whole Blood 338 mg/dL (60-115)
[2022-10-02] MEDS: Gabapentin 100 MG CAPSULE 200 MG PO (21:50)
[2022-10-02] MEDS: Insulin Glargine,Hum.rec.anlog 100 UNIT/ML 10 ML VIAL 44 UNIT SUBCUT (21:52)
[2022-10-03] VITALS (9 sets, daily range): BP systolic 130–144; BP diastolic 65–90; PULSE 87–95; RESP 17–18; TEMP 36.6–37; O2SAT 91–95
[2022-10-03] MEDS: 0.9 % Sodium Chloride Flush 3 ML SYRINGE IVFLUSH ×4 (00:18→20:48)
[2022-10-03] MEDS: Acetaminophen 325 MG TABLET 650 MG PO (06:22)
[2022-10-03] MEDS: methylPREDNISolone Sod Succ 40 MG/ML VIAL IVPUSH ×2 (06:23→17:32)
[2022-10-03] MEDS: Albuterol/Iprat 2.5/0.5MG 3 ML AMPUL.NEB INHALE ×4 (06:34→19:52)
[2022-10-03 07:08] LABS: Creatinine Clr Calc Pharmacy 42.6; Estimated Glomerular Filt Rate 46
[2022-10-03 07:44] LABS: Glucose, Whole Blood 245 mg/dL (60-115)
--- NOTE | 2022-10-03 07:46 | HE.PHANOTE ---
Vancomycin Dosing Renal function has slight improvement. Pharmacy will continue monitoring. Current regimen is still expected to be therapuetic. Level to be drawn 10/05 @ 1600. Dharmesh ChavezD
[2022-10-03] MEDS: Fluticasone/Vilanterol 100/25 BLST.W.DEV 1 PUFF INHALE (07:57)
[2022-10-03] MEDS: Insulin Lispro 100 UNIT/ML 3 ML VIAL SUBCUT ×4 (08:15→20:47)
[2022-10-03] MEDS: guaiFENesin DM 100/10/5 ML 5 ML SYRUP 10 ML PO ×3 (08:15→20:47)
[2022-10-03] MEDS: Atorvastatin Calcium 40 MG TABLET PO (08:16)
[2022-10-03] MEDS: Metoprolol Succinate ER 100 MG TAB.ER.24H PO (08:16)
[2022-10-03] MEDS: Cholecalciferol (Vitamin D3) 25 MCG TABLET PO (08:16)
[2022-10-03] MEDS: glipiZIDE 10 MG TABLET PO (08:16)
[2022-10-03] MEDS: amLODIPine Besylate 5 MG TABLET PO (08:16)
[2022-10-03 11:25] LABS: Glucose, Whole Blood 287 mg/dL (60-115)
--- NOTE | 2022-10-03 12:53 | HO.PM.IMPN ---
Subjective Subjective Date of Service: 10/03/22 Review of Systems Follow up sepsis secondary to influenza pneumonia Doing much better today, no shortness of breath and ambulate Physical Exam Vital Signs: Vital Signs: Last Vital Signs Temp 98.6 F 10/03/22 07:36 Pulse 90 10/03/22 11:29 Resp 17 10/03/22 11:29 BP 130/65 10/03/22 07:36 Pulse Ox 95 10/03/22 07:36 O2 Del Method 10/03/22 07:36 O2 Flow Rate 2 10/02/22 19:33 Oxygen Flow Rate 2 10/01/22 16:59 BMI result Body Mass Index 28.3 Appearing in no acute distress lung sounds are clear to auscultation heart regular rate rhythm, clear S1, S2 positive bowel sounds, abdomen is soft, nontender neuro patient is alert x3, no focal deficits Objective Data Active Medications Acetaminophen (Acetaminophen 325 Mg Tablet) 650 mg PO Q6H PRN PRN Reason: Pain, Mild (Pain Scale 1-3) Last Admin: 10/03/22 06:22 Dose: 650 mg Documented By: ABHISHEK Albuterol Sulfate (Albuterol Sulfate 90 Mcg 8 Gm Inhaler) 1 puff INHALE QID PRN PRN Reason: shortness of breath or wheezing Albuterol/Ipratropium (Albuterol/Iprat 2.5/0.5mg 3 Ml Ampul.Neb) 3 ml INHALE QID [facility] Last Admin: 10/03/22 11:29 Dose: 3 ml Documented By: LILY Amlodipine Besylate (Amlodipine Besylate 5 Mg Tablet) 5 mg PO DAILY [facility]; Protocol Last Admin: 10/03/22 08:16 Dose: 5 mg Documented By: DONI Atorvastatin Calcium (Atorvastatin Calcium 40 Mg Tablet) 40 mg PO DAILY [facility] Last Admin: 10/03/22 08:16 Dose: 40 mg Documented By: DONI Dextrose (Dextrose 50 % 25 Gm/50 Ml Syringe) 25 gm IVPUSH Q15M PRN; Protocol PRN Reason: per Hypoglycemia Standing Ord. Enoxaparin Sodium (Enoxaparin Sodium 40 Mg/0.4 Ml Syringe) 40 mg SUBCUT Q24H [facility] Last Admin: 10/02/22 17:05 Dose: 40 mg Documented By: DONI Fluticasone/Vilanterol (Fluticasone/Vilanterol 100/25 Blst.W.Dev) 1 puff INHALE RDAILY [facility] Last Admin: 10/03/22 07:57 Dose: 1 puff Documented By: LILY Gabapentin (Gabapentin 100 Mg Capsule) 200 mg PO BEDTIME [facility] Last Admin: 10/02/22 21:50 Dose: 200 mg Documented By: ANNABELLE Glipizide (Glipizide 10 Mg Tablet) 10 mg PO DAILY [facility] Last Admin: 10/03/22 08:16 Dose: 10 mg Documented By: DONI Glucose (Glucose Gel 15 Gm Gel..Gram.) 15 gm PO Q15M PRN; Protocol PRN Reason: per Hypoglycemia Standing Ord. Guaifenesin/Dextromethorphan (Guaifenesin Dm 100/10/5 Ml 5 Ml Syrup) 10 ml PO TID [facility] Last Admin: 10/03/22 08:15 Dose: 10 ml Documented By: DONI Ceftriaxone Sodium 1 gm/ (Sodium Chloride) 50 mls @ 100 mls/hr IV Q24H [facility] Last Infusion: 10/02/22 14:42 Dose: 0 mls/hr Documented By: GERALD Azithromycin 500 mg/ Sodium (Chloride) 250 mls @ 125 mls/hr IV Q24H [facility] Last Infusion: 10/02/22 18:06 Dose: 0 mls/hr Documented By: DONI Vancomycin HCl 1,000 mg/ (Sodium Chloride) 270 mls @ 270 mls/hr IV Q24H [facility] Insulin Glargine (Insulin Glargine,Hum.Rec.Anlog 100 Unit/Ml 10 Ml Vial) 44 unit SUBCUT BEDTIME [facility] Last Admin: 10/02/22 21:52 Dose: 44 unit Documented By: ANNABELLE Insulin Human Lispro (Insulin Lispro 100 Unit/Ml 3 Ml Vial) 0 unit SUBCUT QIDACHS [facility]; Protocol Last Admin: 10/03/22 11:49 Dose: 6 unit Documented By: DONI Melatonin (Melatonin 3 Mg Tablet) 3 mg PO BEDTIME PRN PRN Reason: Insomnia Methylprednisolone Sodium Succinate (Methylprednisolone Sod Succ 40 Mg/Ml Vial) 40 mg IVPUSH Q12H [facility] Last Admin: 10/03/22 06:23 Dose: 40 mg Documented By: ABHISHEK Metoprolol Succinate (Metoprolol Succinate Er 100 Mg Tab.Er.24h) 100 mg PO DAILY [facility]; Protocol Last Admin: 10/03/22 08:16 Dose: 100 mg Documented By: DONI Non-Formulary Medication (Terbinafine Hcl) 250 mg PO DAILY [facility] Olanzapine (Olanzapine 2.5 Mg Tablet) 2.5 mg PO BEDTIME PRN PRN Reason: insomnia Ondansetron HCl (Ondansetron Hcl 4 Mg/2 Ml Vial) 4 mg IVPUSH Q8H PRN PRN Reason: Nausea and Vomiting Pharmacy Consult (Consult Rx Vancomycin Dosing) 1 each MISCELLANE DAILY PRN PRN Reason: Consult order Sodium Chloride (0.9 % Sodium Chloride Flush 3 Ml Syringe) 3 ml IVFLUSH QSHIFT [facility] Last Admin: 10/03/22 08:16 Dose: 3 ml Documented By: DONI Vitamin D (Cholecalciferol (Vitamin D3) 25 Mcg Tablet) 25 mcg PO DAILY [facility] Last Admin: 10/03/22 08:16 Dose: 25 mcg Documented By: ODNI Labs CBC & Chem 7: 10/01/22 13:25 10/03/22 05:48 Labs: Laboratory Results - last 24 hr 10/02/22 10/02/22 10/03/22 16:27 20:14 05:48 Estim Creat Clear Calc 42.6 Estimated GFR 46 POC Glucose 311 H 338 H 10/03/22 10/03/22 07:35 11:20 Estim Creat Clear Calc Estimated GFR POC Glucose 245 H 287 H Microbiology Microbiology Results: Microbiology 10/01/22 13:42 Blood Culture - Preliminary Blood - Venous Staphylococcus aureus 10/01/22 13:25 Blood Culture - Preliminary Blood - Venous Staphylococcus aureus Assessment and Plan (1) Influenza A: Status: Acute Plan 72-year-old gentleman with past medical history of diabetes mellitus type 2, coronary artery disease, asthma, chronic kidney disease stage 3 recently diagnosed to have influenza a on September 28 presented to [facility] with persistent shortness of breath cough dizziness diarrhea and right-sided chest discomfort with coughing patient diagnosed to have pneumonia, acute on chronic kidney disease therefore being admitted to [facility]. Staphylococcal aureus Bacteremia 2/2 positive On vancomycin ID consult echo Sepsis secondary to to influenza A with secondary bacterial pneumonia Diagnosed to have sepsis due to fever and leukocytosis s/p treatment with Tamiflu for previous influenza a diagnosis Will treat patient with IV ceftriaxone and azithromycin cough medication oxygen patient not on home O2 venous tolerated Acute on chronic kidney disease stage 3 Likely due to diarrhea will hold losartan received 2 L of IV fluid in the ED follow bmp Hypertension continue amlodipine and metoprolol, hold losartan follow-up blood pressure Mild acute asthma exacerbation with baseline persistent asthma will place on updraft treatment, IV steroids follow clinical course Diabetes mellitus type 2 Sliding scale, ADA diet Chronic kidney disease stage 3 B Mildly above baseline Follow Mood disorder continue olanzapine DVT prophylaxis with Lovenox Attending Dr. Conteh Code status full code In my clinical judgment patient need 2 night inpatient stay due to sepsis related to pneumonia requiring IV antibiotics and supportive care. Time Spent With Patient Time: Total time managing care of this patient today ____ minutes. Quality Stroke Does the patient have a stroke diagnosis?: No VTE Prior VTE?: No VTE Risk Level:: Medical - moderate - high VTE Device Contraindication: Treatment Not Indicated VTE Drug Contraindication: N/A - Med Ordered
[2022-10-03] MEDS: cefTRIAXone sodium 1 GM in 0.9 % Sodium Chloride 50 ML IV (14:36)
[2022-10-03 15:37] LABS: Glucose, Whole Blood 289 mg/dL (60-115)
[2022-10-03] MEDS: Enoxaparin Sodium 40 MG/0.4 ML SYRINGE SUBCUT (16:49)
[2022-10-03] MEDS: vancomycin HCL 1,000 MG in 0.9 % Sodium Chloride 250 ML 270 MG IV (17:40)
[2022-10-03 19:40] LABS: Glucose, Whole Blood 339 mg/dL (60-115)
[2022-10-03] MEDS: Gabapentin 100 MG CAPSULE 200 MG PO (20:47)
[2022-10-03] MEDS: Insulin Glargine,Hum.rec.anlog 100 UNIT/ML 10 ML VIAL 44 UNIT SUBCUT (20:47)
[2022-10-04] VITALS (9 sets, daily range): BP systolic 137–164; BP diastolic 64–81; PULSE 86–111; RESP 16–22; TEMP 36.5–37.1; O2SAT 91–95
[2022-10-04] MEDS: methylPREDNISolone Sod Succ 40 MG/ML VIAL IVPUSH ×2 (06:29→20:46)
[2022-10-04 06:50] LABS: Creatinine Clr Calc Pharmacy 47.3; Estimated Glomerular Filt Rate 52
--- NOTE | 2022-10-04 07:00 | CA_ITS ---
Transthoracic Echocardiogram Patient (Last, First, Middle): Zuhair Muhammad, Gender: Male Date of : 1950 Age: 72 Procedure Date: 10/04/2022 Procedure Type: Transthoracic Echocardiogram Location: S3E Height: 165.1 cm Weight: 77.11 kg BSA: 1.85 m2 Heart Rate: 89 bpm BP: 164 / 81 mmHg Set Making Machine Operator: SB Referring MD: Nicki Roach NP Symptoms: staph bacteremia Study Quality: Adequate ECG Rhythm: Sinus Conclusions: - The left ventricular systolic function is normal. The calculated ejection fraction is 68% by biplane method. - No obvious valvular pathology seen on this study. Findings Left Ventricle Normal left ventricular cavity size. The left ventricular systolic function is normal. The calculated ejection fraction is 68% by biplane method. There is no evidence of regional wall motion abnormalities. Diastolic function is normal for age. There is mild septal asymmetric hypertrophy. Right Ventricle Normal right ventricular cavity size and systolic function. Atria Both atria are normal in size. Aortic Valve There is a normal trileaflet aortic valve. There is no aortic valve stenosis. There is no aortic valve regurgitation. Mitral Valve The mitral valve appears normal. There is trace mitral valve regurgitation. There is no mitral valve stenosis. Pulmonic Valve The pulmonic valve is likely normal. Tricuspid Valve Normal tricuspid valve structure. There is no tricuspid valve regurgitation. The pulmonary artery systolic pressure is normal. Great Vessels The asc aorta is normal in size. Venous The inferior vena cava is normal in size and collapses greater than 50% with inspiration. Pericardium/Pleural There is no evidence of pericardial effusion. Prior Study Comparison No prior study available for comparison. Recommendations, Care & Conclusions No obvious valvular pathology seen on this study. Consider a MELANIE if clinically appropriate. Measurements 2D Linear Measurements IVSd: 1.10 0.6-0.9/0.6-1.0 cm LVIDd: 4.37 3.9-5.3/4.2-5.9 cm LVIDd Index: 2.36 2.4-3.2/2.2-3.1 cm/m2 LVIDs: 2.65 2.0-3.6 cm LVPWd: 0.75 0.7-1.1 cm LA Diam: 3.70 2.7-3.8/3.0-4.0 cm LAIDs Index: 2.00 1.5-2.3 cm/m2 LV Mass: 163.48 67-162/88-224 g LV Mass Index: 88.37 43-95/49-115 g/m2 LVOT Diam: 2.10 3.0+(-)1.3 cm 2D Systolic Function EF 4C: 67.10 >55% EF 2C: 66.70 >55% EF BiP: 67.50 >55% Mitral Valve MV Pk E: 0.91 MV PK A: 0.69 MV Decel Time: 194.00 E/A: 1.30 E'Lateral: 7.51 E'Medial: 7.07 E/E' Med: 12.80 E/E' Lat: 12.10 PHT: 57.00 MVA PHT: 3.86 Decel Mcdonald: 4.69 Aortic Valve AoV Pk Best: 1.64 AoV Pk Grad: 11.00 LVOT LVOT Pk Best: 1.15 LVOT Mn Best: 0.84 LVOT VTI: 0.24 LVOT Pk Grad: 5.00 LVOT Mn Grad: 3.00 LVOT Diam: 2.10 LVOT Area: 3.46 Diastolic Function MV Pk E: 0.91 MV Pk A: 0.69 E/A: 1.30 E'Medial: 7.07 E/E' Med: 12.80 E' Laterial: 7.51 E/E' Lat: 12.10 Right Ventricle TAPSE (mm): 26.70 TVS' Best: 16.60 Tricuspid Valve TR Pk Best: 2.60 TR Pk Grad: 27.00 Great Vessels Aorta Sinus of Valsalva: 3.10 2.0-3.5 cm Ao Asc: 3.30 2.1-3.4 cm Pulmonary Veins Pulm Vein S/D 1.60 Pulmonary Valve PV Pk Best: 1.21 Peak PV Grad: 6.00 Updated in Other Vendor System with Status of Final Ponce Lutz MD electronically signed on 10/04/2022 11:37:45 AM with status of Final
[2022-10-04] MEDS: Albuterol/Iprat 2.5/0.5MG 3 ML AMPUL.NEB INHALE ×4 (07:52→19:43)
[2022-10-04 08:32] LABS: Glucose, Whole Blood 133 mg/dL (60-115)
--- NOTE | 2022-10-04 09:30 | HE.PHANOTE ---
Vancomycin Dosing Addendum Patients Scr went down from 1.35 to 1.5 mg/L. Continue current dose of 1000 mg Q24H. Predicted AUC 422 mg/L/hr. Level to be drawn 10/05 @1600
[2022-10-04] MEDS: guaiFENesin DM 100/10/5 ML 5 ML SYRUP 10 ML PO ×3 (09:46→20:46)
[2022-10-04] MEDS: Metoprolol Succinate ER 100 MG TAB.ER.24H PO (09:46)
[2022-10-04] MEDS: Atorvastatin Calcium 40 MG TABLET PO (09:46)
[2022-10-04] MEDS: amLODIPine Besylate 5 MG TABLET PO (09:47)
[2022-10-04] MEDS: Cholecalciferol (Vitamin D3) 25 MCG TABLET PO (09:47)
[2022-10-04] MEDS: 0.9 % Sodium Chloride Flush 3 ML SYRINGE IVFLUSH ×3 (09:47→20:47)
[2022-10-04] MEDS: glipiZIDE 10 MG TABLET PO (09:47)
[2022-10-04 11:22] LABS: Glucose, Whole Blood 316 mg/dL (60-115)
[2022-10-04] MEDS: Insulin Lispro 100 UNIT/ML 3 ML VIAL SUBCUT ×3 (11:30→20:46)
--- NOTE | 2022-10-04 13:13 | P.PNIM_ITS ---
Subjective Subjective Date of Service: 10/04/22 Review of Systems Follow up sepsis secondary to influenza pneumonia, MRSA bacteremia Doing much better today, no shortness of breath and ambulate Physical Exam Vital Signs: Vital Signs: Last Vital Signs Temp 98.7 F 10/04/22 08:17 Pulse 92 10/04/22 11:21 Resp 18 10/04/22 11:21 BP 146/74 H 10/04/22 08:17 Pulse Ox 91 L 10/04/22 08:17 O2 Del Method 10/04/22 08:17 O2 Flow Rate 2 10/02/22 19:33 Oxygen Flow Rate 2 10/01/22 16:59 BMI result Body Mass Index 28.3 Appearing in no acute distress lung sounds are clear to auscultation heart regular rate rhythm, clear S1, S2 positive bowel sounds, abdomen is soft, nontender neuro patient is alert x3, no focal deficits Objective Data Active Medications Acetaminophen (Acetaminophen 325 Mg Tablet) 650 mg PO Q6H PRN PRN Reason: Pain, Mild (Pain Scale 1-3) Last Admin: 10/03/22 06:22 Dose: 650 mg Documented By: ABHISHEK Albuterol Sulfate (Albuterol Sulfate 90 Mcg 8 Gm Inhaler) 1 puff INHALE QID PRN PRN Reason: shortness of breath or wheezing Albuterol/Ipratropium (Albuterol/Iprat 2.5/0.5mg 3 Ml Ampul.Neb) 3 ml INHALE QID [facility] Last Admin: 10/04/22 11:20 Dose: 3 ml Documented By: HOME Amlodipine Besylate (Amlodipine Besylate 5 Mg Tablet) 5 mg PO DAILY [facility]; Protocol Last Admin: 10/04/22 09:47 Dose: 5 mg Documented By: ELIGIO Atorvastatin Calcium (Atorvastatin Calcium 40 Mg Tablet) 40 mg PO DAILY [facility] Last Admin: 10/04/22 09:46 Dose: 40 mg Documented By: ELIGIO Dextrose (Dextrose 50 % 25 Gm/50 Ml Syringe) 25 gm IVPUSH Q15M PRN; Protocol PRN Reason: per Hypoglycemia Standing Ord. Enoxaparin Sodium (Enoxaparin Sodium 40 Mg/0.4 Ml Syringe) 40 mg SUBCUT Q24H [facility] Last Admin: 10/03/22 16:49 Dose: 40 mg Documented By: DONI Fluticasone/Vilanterol (Fluticasone/Vilanterol 100/25 Blst.W.Dev) 1 puff INHALE RDAILY [facility] Last Admin: 10/04/22 07:47 Dose: Not Given Documented By: HOME Non-Admin Reason: Med Not Available Gabapentin (Gabapentin 100 Mg Capsule) 200 mg PO BEDTIME [facility] Last Admin: 10/03/22 20:47 Dose: 200 mg Documented By: MARIO Glipizide (Glipizide 10 Mg Tablet) 10 mg PO DAILY [facility] Last Admin: 10/04/22 09:47 Dose: 10 mg Documented By: ELIGIO Glucose (Glucose Gel 15 Gm Gel..Gram.) 15 gm PO Q15M PRN; Protocol PRN Reason: per Hypoglycemia Standing Ord. Guaifenesin/Dextromethorphan (Guaifenesin Dm 100/10/5 Ml 5 Ml Syrup) 10 ml PO TID [facility] Last Admin: 10/04/22 09:46 Dose: 10 ml Documented By: ELIGIO Ceftriaxone Sodium 1 gm/ (Sodium Chloride) 50 mls @ 100 mls/hr IV Q24H [facility] Last Infusion: 10/03/22 15:25 Dose: 0 mls/hr Documented By: DONI Vancomycin HCl 1,000 mg/ (Sodium Chloride) 270 mls @ 270 mls/hr IV Q24H [facility] Last Infusion: 10/03/22 18:49 Dose: 0 mls/hr Documented By: DONI Insulin Glargine (Insulin Glargine,Hum.Rec.Anlog 100 Unit/Ml 10 Ml Vial) 44 unit SUBCUT BEDTIME [facility] Last Admin: 10/03/22 20:47 Dose: 44 unit Documented By: MARIO Insulin Human Lispro (Insulin Lispro 100 Unit/Ml 3 Ml Vial) 0 unit SUBCUT QIDACHS [facility]; Protocol Last Admin: 10/04/22 11:30 Dose: 8 unit Documented By: ELIGIO Melatonin (Melatonin 3 Mg Tablet) 3 mg PO BEDTIME PRN PRN Reason: Insomnia Methylprednisolone Sodium Succinate (Methylprednisolone Sod Succ 40 Mg/Ml Vial) 40 mg IVPUSH Q12H [facility] Last Admin: 10/04/22 06:29 Dose: 40 mg Documented By: MARIO Metoprolol Succinate (Metoprolol Succinate Er 100 Mg Tab.Er.24h) 100 mg PO DAILY [facility]; Protocol Last Admin: 10/04/22 09:46 Dose: 100 mg Documented By: ELIGIO Non-Formulary Medication (Terbinafine Hcl) 250 mg PO DAILY [facility] Olanzapine (Olanzapine 2.5 Mg Tablet) 2.5 mg PO BEDTIME PRN PRN Reason: insomnia Ondansetron HCl (Ondansetron Hcl 4 Mg/2 Ml Vial) 4 mg IVPUSH Q8H PRN PRN Reason: Nausea and Vomiting Pharmacy Consult (Consult Rx Vancomycin Dosing) 1 each MISCELLANE DAILY PRN PRN Reason: Consult order Sodium Chloride (0.9 % Sodium Chloride Flush 3 Ml Syringe) 3 ml IVFLUSH QSHIFT [facility] Last Admin: 10/04/22 09:47 Dose: 3 ml Documented By: ELIGIO Vitamin D (Cholecalciferol (Vitamin D3) 25 Mcg Tablet) 25 mcg PO DAILY [facility] Last Admin: 10/04/22 09:47 Dose: 25 mcg Documented By: ELIGIO Labs CBC & Chem 7: 10/01/22 13:25 10/04/22 05:17 Labs: Laboratory Results - last 24 hr 10/03/22 10/03/22 10/04/22 15:33 19:35 05:17 Estim Creat Clear Calc 47.3 Estimated GFR 52 POC Glucose 289 H 339 H 10/04/22 10/04/22 08:20 11:18 Estim Creat Clear Calc Estimated GFR POC Glucose 133 H 316 H Microbiology Microbiology Results: Microbiology 10/01/22 13:42 Blood Culture - Final Blood - Venous Methicillin Res Staph Aureus 10/01/22 13:25 Blood Culture - Final Blood - Venous Methicillin Res Staph Aureus Assessment and Plan (1) Influenza A: Status: Acute Plan 72-year-old gentleman with past medical history of diabetes mellitus type 2, coronary artery disease, asthma, chronic kidney disease stage 3 recently diagnosed to have influenza a on September 28 presented to [facility] with persistent shortness of breath cough dizziness diarrhea and right-sided chest discomfort with coughing patient diagnosed to have pneumonia, acute on chronic kidney disease therefore being admitted to [facility]. MRSA Bacteremia 2/2 positive Already on vancomycin ID Following echo with no vegetation abd CT pending order PICC line once cx clear Sepsis secondary to influenza A with secondary bacterial pneumonia s/psepsis due to fever and leukocytosis s/p treatment with Tamiflu for previous influenza a diagnosis Will treat patient with IV ceftriaxone and azithromycin cough medication oxygen patient not on home O2 venous tolerated Acute on chronic kidney disease stage 3 Likely due to diarrhea will hold losartan received 2 L of IV fluid in the ED follow bmp Hypertension continue amlodipine and metoprolol, hold losartan follow-up blood pressure Mild acute asthma exacerbation with baseline persistent asthma will place on updraft treatment, IV steroids follow clinical course Diabetes mellitus type 2 Sliding scale, ADA diet Chronic kidney disease stage 3 B Mildly above baseline Follow Mood disorder continue olanzapine DVT prophylaxis with Lovenox Attending Dr. Conteh Code status full code In my clinical judgment patient need 2 night inpatient stay due to sepsis related to pneumonia requiring IV antibiotics and supportive care. Time Spent With Patient Time: Total time managing care of this patient today ____ minutes. Quality Stroke Does the patient have a stroke diagnosis?: No VTE Prior VTE?: No VTE Risk Level:: Medical - moderate - high VTE Device Contraindication: Treatment Not Indicated VTE Drug Contraindication: N/A - Med Ordered
[2022-10-04] MEDS: cefTRIAXone sodium 1 GM in 0.9 % Sodium Chloride 50 ML IV (14:25)
--- NOTE | 2022-10-04 15:54 | P.CNID_ITS ---
History of Present Illness Data of Consult Service Date: 10/04/22 Requesting physician: Nicki Roach Primary Care Provider: Rose Mary Mcneill MD HPI Reason for consult: MRSA bacteremia He presents with cough and shortness of breath worse over last week. He was positive flu A on 09/28. He has MRSA bacteremia and right base ?cavitary infiltrate. 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 Son No problems noted. Son No problems noted. Son No problems noted. Family history: reviewed and not pertinent Surgical History Surgical History H/O colonoscopy History of lipoma Social History Social History Household Members: Spouse Housing: Apartment Do you presently have visiting nurse or other home services: Yes Alcohol intake: current Alcohol intake frequency: holidays/special occasions only Patient Tobacco Use Status: Former Tobacco user Tobacco use type: Cigarette e-Cigarette/Vaping Use: Never Used Second Hand Smoke Exposure: No Advance Directives Date on File: 07/30/20 service: No Current occupational status: retired Cognitive needs: No Hearing needs: No Vision needs: No Meds Allergies Allergy/AdvReac Type Severity Reaction Status Date / Time gabapentin Allergy Mild Itching Verified 08/03/22 10:57 Active Medications: Current Medications Acetaminophen (Acetaminophen 325 Mg Tablet) 650 mg PO Q6H PRN PRN Reason: Pain, Mild (Pain Scale 1-3) Last Admin: 10/03/22 06:22 Dose: 650 mg Albuterol Sulfate (Albuterol Sulfate 90 Mcg 8 Gm Inhaler) 1 puff INHALE QID PRN PRN Reason: shortness of breath or wheezing Albuterol/Ipratropium (Albuterol/Iprat 2.5/0.5mg 3 Ml Ampul.Neb) 3 ml INHALE QID [facility] Last Admin: 10/04/22 14:43 Dose: 3 ml Amlodipine Besylate (Amlodipine Besylate 5 Mg Tablet) 5 mg PO DAILY [facility]; Protocol Last Admin: 10/04/22 09:47 Dose: 5 mg Atorvastatin Calcium (Atorvastatin Calcium 40 Mg Tablet) 40 mg PO DAILY [facility] Last Admin: 10/04/22 09:46 Dose: 40 mg Dextrose (Dextrose 50 % 25 Gm/50 Ml Syringe) 25 gm IVPUSH Q15M PRN; Protocol PRN Reason: per Hypoglycemia Standing Ord. Enoxaparin Sodium (Enoxaparin Sodium 40 Mg/0.4 Ml Syringe) 40 mg SUBCUT Q24H [facility] Last Admin: 10/03/22 16:49 Dose: 40 mg Fluticasone/Vilanterol (Fluticasone/Vilanterol 100/25 Blst.W.Dev) 1 puff INHALE RDAILY [facility] Last Admin: 10/04/22 07:47 Dose: Not Given Gabapentin (Gabapentin 100 Mg Capsule) 200 mg PO BEDTIME [facility] Last Admin: 10/03/22 20:47 Dose: 200 mg Glipizide (Glipizide 10 Mg Tablet) 10 mg PO DAILY [facility] Last Admin: 10/04/22 09:47 Dose: 10 mg Glucose (Glucose Gel 15 Gm Gel..Gram.) 15 gm PO Q15M PRN; Protocol PRN Reason: per Hypoglycemia Standing Ord. Guaifenesin/Dextromethorphan (Guaifenesin Dm 100/10/5 Ml 5 Ml Syrup) 10 ml PO TID [facility] Last Admin: 10/04/22 14:25 Dose: 10 ml Ceftriaxone Sodium 1 gm/ (Sodium Chloride) 50 mls @ 100 mls/hr IV Q24H [facility] Last Admin: 10/04/22 14:25 Dose: 100 mls/hr Vancomycin HCl 1,000 mg/ (Sodium Chloride) 270 mls @ 270 mls/hr IV Q24H [facility] Last Infusion: 10/03/22 18:49 Dose: Infused Insulin Glargine (Insulin Glargine,Hum.Rec.Anlog 100 Unit/Ml 10 Ml Vial) 44 unit SUBCUT BEDTIME [facility] Last Admin: 10/03/22 20:47 Dose: 44 unit Insulin Human Lispro (Insulin Lispro 100 Unit/Ml 3 Ml Vial) 0 unit SUBCUT QIDACHS [facility]; Protocol Last Admin: 10/04/22 11:30 Dose: 8 unit Melatonin (Melatonin 3 Mg Tablet) 3 mg PO BEDTIME PRN PRN Reason: Insomnia Methylprednisolone Sodium Succinate (Methylprednisolone Sod Succ 40 Mg/Ml Vial) 40 mg IVPUSH Q12H [facility] Last Admin: 10/04/22 06:29 Dose: 40 mg Metoprolol Succinate (Metoprolol Succinate Er 100 Mg Tab.Er.24h) 100 mg PO DAILY [facility]; Protocol Last Admin: 10/04/22 09:46 Dose: 100 mg Non-Formulary Medication (Terbinafine Hcl) 250 mg PO DAILY [facility] Olanzapine (Olanzapine 2.5 Mg Tablet) 2.5 mg PO BEDTIME PRN PRN Reason: insomnia Ondansetron HCl (Ondansetron Hcl 4 Mg/2 Ml Vial) 4 mg IVPUSH Q8H PRN PRN Reason: Nausea and Vomiting Pharmacy Consult (Consult Rx Vancomycin Dosing) 1 each MISCELLANE DAILY PRN PRN Reason: Consult order Sodium Chloride (0.9 % Sodium Chloride Flush 3 Ml Syringe) 3 ml IVFLUSH QSHIFT [facility] Last Admin: 10/04/22 09:47 Dose: 3 ml Vitamin D (Cholecalciferol (Vitamin D3) 25 Mcg Tablet) 25 mcg PO DAILY [facility] Last Admin: 10/04/22 09:47 Dose: 25 mcg Home Medications Medication Instructions Recorded Confirmed Last Taken Type insulin glargine U-300 conc 300 56 unit subcut BEDTIME 10/01/22 10/01/22 09/30/22 History unit/mL (3 mL) subcutaneous pen (Toujeo Max U-300 SoloStar) prednisone 20 mg tablet 1 tab PO BID 10/01/22 10/01/22 10/01/22 History Physical Exam Vital Signs: Vital Signs: Last Vital Signs Temp 98.2 F 10/04/22 15:34 Pulse 100 10/04/22 15:34 Resp 19 10/04/22 15:34 BP 146/67 H 10/04/22 15:34 Pulse Ox 92 10/04/22 15:34 O2 Del Method 10/04/22 15:34 O2 Flow Rate 2 10/02/22 19:33 Oxygen Flow Rate 2 10/01/22 16:59 BMI result Body Mass Index 28.3 Const: General: cooperative HEENT: Head: Yes normal to inspection Face and sinus: Yes normal facial exam Mouth: Normal oral and palatal mucosa present Teeth and gingiva: dentition normal Eyes: General: appearance normal, both eyes and all related structures Pupils: Equal, round and reactive pupils present Resp: Other: rhonchi,right more than left base Cardio: Rate: regular rate Rhythm: regular rhythm GI: Palpation (GI): Soft to palpation and nontender : General: Yes no CVA tenderness Back/Spine/Pelvis: Back: no CVA tenderness Skin: General skin exam: no rashes or lesions noted Neuro: General: moves all extremities Cranial nerves: Yes Equal, round and reactive pupils present Extrem: General: Yes normal to inspection Psych: Appearance: grossly normal Results Labs CBC & Chem 7: 10/01/22 13:25 10/04/22 05:17 Labs: BMP 10/04/22 05:17 Creatinine 1.35 Microbiology Microbiology Results: Microbiology 10/01/22 13:42 Blood - Venous Blood Culture - Final Methicillin Res Staph Aureus 10/01/22 13:25 Blood - Venous Blood Culture - Final Methicillin Res Staph Aureus Assessment and Plan (1) Influenza A: Status: Acute (2) Pneumonia: Qualifiers: Laterality: right Lung location: lower lobe of lung Status: Acute (3) MRSA bacteremia: Status: Acute He has postflu A MRSA pneumonia,complication of this viral infection He has no other complaints Plan Echo evaluate endocarditis doubt. IV Vancomycin for four weeks in case occult endocarditis. Time Spent With Patient Time: Total time managing care of this patient today ____ minutes.
[2022-10-04 16:32] LABS: Glucose, Whole Blood 341 mg/dL (60-115)
[2022-10-04] MEDS: Enoxaparin Sodium 40 MG/0.4 ML SYRINGE SUBCUT (16:58)
[2022-10-04 20:14] LABS: Glucose, Whole Blood 262 mg/dL (60-115)
[2022-10-04] MEDS: Gabapentin 100 MG CAPSULE 200 MG PO (20:46)
[2022-10-04] MEDS: Insulin Glargine,Hum.rec.anlog 100 UNIT/ML 10 ML VIAL 44 UNIT SUBCUT (20:46)
[2022-10-04] MEDS: vancomycin HCL 1,000 MG in 0.9 % Sodium Chloride 250 ML 270 MG IV (20:46)
[2022-10-05] VITALS (8 sets, daily range): BP systolic 153–162; BP diastolic 76–91; PULSE 81–91; RESP 15–18; TEMP 36.4–37; O2SAT 92–96
[2022-10-05] MEDS: methylPREDNISolone Sod Succ 40 MG/ML VIAL IVPUSH ×2 (05:59→17:19)
[2022-10-05 06:46] LABS: Creatinine Clr Calc Pharmacy 52.8; Estimated Glomerular Filt Rate 59
[2022-10-05 07:37] LABS: Glucose, Whole Blood 64 mg/dL (60-115)
[2022-10-05] MEDS: Fluticasone/Vilanterol 100/25 BLST.W.DEV 1 PUFF INHALE (07:37)
[2022-10-05] MEDS: Albuterol/Iprat 2.5/0.5MG 3 ML AMPUL.NEB INHALE ×4 (07:37→20:08)
[2022-10-05] MEDS: guaiFENesin DM 100/10/5 ML 5 ML SYRUP 10 ML PO ×3 (08:04→22:08)
[2022-10-05] MEDS: Metoprolol Succinate ER 100 MG TAB.ER.24H PO (08:05)
[2022-10-05] MEDS: glipiZIDE 10 MG TABLET PO (08:05)
[2022-10-05] MEDS: amLODIPine Besylate 5 MG TABLET PO (08:05)
[2022-10-05] MEDS: Atorvastatin Calcium 40 MG TABLET PO (08:05)
[2022-10-05] MEDS: Cholecalciferol (Vitamin D3) 25 MCG TABLET PO (08:05)
[2022-10-05] MEDS: 0.9 % Sodium Chloride Flush 3 ML SYRINGE IVFLUSH ×3 (08:05→22:09)
--- NOTE | 2022-10-05 09:42 | P.PNIM_ITS ---
Subjective Subjective Date of Service: 10/05/22 Review of Systems Follow up sepsis secondary to influenza pneumonia, MRSA bacteremia Doing much better today, no shortness of breath and ambulate Physical Exam Vital Signs: Vital Signs: Last Vital Signs Temp 98.2 F 10/05/22 07:22 Pulse 84 10/05/22 07:38 Resp 18 10/05/22 07:38 BP 159/84 H 10/05/22 07:22 Pulse Ox 95 10/05/22 07:22 O2 Del Method 10/05/22 07:22 O2 Flow Rate 2 10/02/22 19:33 Oxygen Flow Rate 2 10/01/22 16:59 BMI result Body Mass Index 28.3 Appearing in no acute distress lung sounds are clear to auscultation heart regular rate rhythm, clear S1, S2 positive bowel sounds, abdomen is soft, nontender neuro patient is alert x3, no focal deficits Objective Data Active Medications Acetaminophen (Acetaminophen 325 Mg Tablet) 650 mg PO Q6H PRN PRN Reason: Pain, Mild (Pain Scale 1-3) Last Admin: 10/03/22 06:22 Dose: 650 mg Documented By: ABHISHEK Albuterol Sulfate (Albuterol Sulfate 90 Mcg 8 Gm Inhaler) 1 puff INHALE QID PRN PRN Reason: shortness of breath or wheezing Albuterol/Ipratropium (Albuterol/Iprat 2.5/0.5mg 3 Ml Ampul.Neb) 3 ml INHALE QID [facility] Last Admin: 10/05/22 07:37 Dose: 3 ml Documented By: HOME Amlodipine Besylate (Amlodipine Besylate 5 Mg Tablet) 5 mg PO DAILY [facility]; Protocol Last Admin: 10/05/22 08:05 Dose: 5 mg Documented By: ELIGIO Atorvastatin Calcium (Atorvastatin Calcium 40 Mg Tablet) 40 mg PO DAILY [facility] Last Admin: 10/05/22 08:05 Dose: 40 mg Documented By: ELIGIO Dextrose (Dextrose 50 % 25 Gm/50 Ml Syringe) 25 gm IVPUSH Q15M PRN; Protocol PRN Reason: per Hypoglycemia Standing Ord. Enoxaparin Sodium (Enoxaparin Sodium 40 Mg/0.4 Ml Syringe) 40 mg SUBCUT Q24H [facility] Last Admin: 10/04/22 16:58 Dose: 40 mg Documented By: ELIGIO Fluticasone/Vilanterol (Fluticasone/Vilanterol 100/25 Blst.W.Dev) 1 puff INHALE RDAILY [facility] Last Admin: 10/05/22 07:37 Dose: 1 puff Documented By: HOME Gabapentin (Gabapentin 100 Mg Capsule) 200 mg PO BEDTIME [facility] Last Admin: 10/04/22 20:46 Dose: 200 mg Documented By: MARIO Glipizide (Glipizide 10 Mg Tablet) 10 mg PO DAILY [facility] Last Admin: 10/05/22 08:05 Dose: 10 mg Documented By: ELIGIO Glucose (Glucose Gel 15 Gm Gel..Gram.) 15 gm PO Q15M PRN; Protocol PRN Reason: per Hypoglycemia Standing Ord. Guaifenesin/Dextromethorphan (Guaifenesin Dm 100/10/5 Ml 5 Ml Syrup) 10 ml PO TID [facility] Last Admin: 10/05/22 08:04 Dose: 10 ml Documented By: ELIGIO Vancomycin HCl 1,000 mg/ (Sodium Chloride) 270 mls @ 270 mls/hr IV Q24H [facility] Last Infusion: 10/04/22 23:35 Dose: 0 mls/hr Documented By: MARIO Insulin Glargine (Insulin Glargine,Hum.Rec.Anlog 100 Unit/Ml 10 Ml Vial) 44 unit SUBCUT BEDTIME [facility] Last Admin: 10/04/22 20:46 Dose: 44 unit Documented By: MARIO Insulin Human Lispro (Insulin Lispro 100 Unit/Ml 3 Ml Vial) 0 unit SUBCUT QIDACHS [facility]; Protocol Last Admin: 10/05/22 08:05 Dose: Not Given Documented By: ELIGIO Non-Admin Reason: No Insulin Coverage Melatonin (Melatonin 3 Mg Tablet) 3 mg PO BEDTIME PRN PRN Reason: Insomnia Methylprednisolone Sodium Succinate (Methylprednisolone Sod Succ 40 Mg/Ml Vial) 40 mg IVPUSH Q12H [facility] Last Admin: 10/05/22 05:59 Dose: 40 mg Documented By: MARIO Metoprolol Succinate (Metoprolol Succinate Er 100 Mg Tab.Er.24h) 100 mg PO DAILY [facility]; Protocol Last Admin: 10/05/22 08:05 Dose: 100 mg Documented By: ELIGIO Non-Formulary Medication (Terbinafine Hcl) 250 mg PO DAILY [facility] Olanzapine (Olanzapine 2.5 Mg Tablet) 2.5 mg PO BEDTIME PRN PRN Reason: insomnia Ondansetron HCl (Ondansetron Hcl 4 Mg/2 Ml Vial) 4 mg IVPUSH Q8H PRN PRN Reason: Nausea and Vomiting Pharmacy Consult (Consult Rx Vancomycin Dosing) 1 each MISCELLANE DAILY PRN PRN Reason: Consult order Sodium Chloride (0.9 % Sodium Chloride Flush 3 Ml Syringe) 3 ml IVFLUSH QSHIFT [facility] Last Admin: 10/05/22 08:05 Dose: 3 ml Documented By: ELIGIO Vitamin D (Cholecalciferol (Vitamin D3) 25 Mcg Tablet) 25 mcg PO DAILY [facility] Last Admin: 10/05/22 08:05 Dose: 25 mcg Documented By: ELIGIO Labs CBC & Chem 7: 10/01/22 13:25 10/05/22 05:08 Labs: Laboratory Results - last 24 hr 10/04/22 10/04/22 10/04/22 11:18 16:23 20:05 Estim Creat Clear Calc Estimated GFR POC Glucose 316 H 341 H 262 H 10/05/22 10/05/22 05:08 07:21 Estim Creat Clear Calc 52.8 Estimated GFR 59 POC Glucose 64 Microbiology Microbiology Results: Microbiology 10/04/22 13:54 Blood Culture - Preliminary Blood - Venous 10/01/22 13:42 Blood Culture - Final Blood - Venous Methicillin Res Staph Aureus 10/01/22 13:25 Blood Culture - Final Blood - Venous Methicillin Res Staph Aureus Assessment and Plan (1) Influenza A: Status: Acute Plan 72-year-old gentleman with past medical history of diabetes mellitus type 2, coronary artery disease, asthma, chronic kidney disease stage 3 recently diagnosed to have influenza a on September 28 presented to [facility] with persistent shortness of breath cough dizziness diarrhea and right-sided chest discomfort with coughing patient diagnosed to have pneumonia, acute on chronic kidney disease therefore being admitted to [facility]. MRSA Bacteremia 2/2 positive Already on vancomycin ID Following echo with no vegetation abd CT neg order PICC line once cx clear , will need 4 weeks of vanco Sepsis secondary to influenza A with secondary bacterial pneumonia s/psepsis due to fever and leukocytosis s/p treatment with Tamiflu for previous influenza a diagnosis Will treat patient with IV ceftriaxone and azithromycin cough medication oxygen patient not on home O2 venous tolerated Acute on chronic kidney disease stage 3 Likely due to diarrhea will hold losartan received 2 L of IV fluid in the ED follow bmp Hypertension continue amlodipine and metoprolol, hold losartan follow-up blood pressure Mild acute asthma exacerbation with baseline persistent asthmaResolved will place on updraft treatment, IV steroids follow clinical course Diabetes mellitus type 2 Sliding scale, ADA diet Chronic kidney disease stage 3 B Mildly above baseline Follow Mood disorder continue olanzapine DVT prophylaxis with Lovenox Attending Dr. Conteh Code status full code In my clinical judgment patient need 2 night inpatient stay due to sepsis related to pneumonia requiring IV antibiotics and supportive care. Time Spent With Patient Time: Total time managing care of this patient today ____ minutes. Quality Stroke Does the patient have a stroke diagnosis?: No VTE Prior VTE?: No VTE Risk Level:: Medical - moderate - high VTE Device Contraindication: Treatment Not Indicated VTE Drug Contraindication: N/A - Med Ordered
[2022-10-05 11:24] LABS: Glucose, Whole Blood 137 mg/dL (60-115)
--- NOTE | 2022-10-05 14:58 | MHC.CM.PN ---
PLAN IS FOR PICC PLACEMENT AND IV VANCO BID. [facility] REFERRALS PLACED.
[2022-10-05 15:37] LABS: Glucose, Whole Blood 234 mg/dL (60-115)
--- NOTE | 2022-10-05 16:03 | MHC.CM.PN ---
T/W MET WITH PATIENT AND WITH TEST [employer] PATIENT PREFERS TO DC HOME WITH IV ABX [facility]ATHER THAN SNF HE IS NOT COMFORTABLE LEARNING HIS IV ABX, BUT DOES STATE THAT HIS SON BONNIE IS CAPABLE. [facility] MADE AWARE.
[2022-10-05] MEDS: Insulin Lispro 100 UNIT/ML 3 ML VIAL SUBCUT ×2 (16:27→22:10)
[2022-10-05] MEDS: Enoxaparin Sodium 40 MG/0.4 ML SYRINGE SUBCUT (16:27)
[2022-10-05 16:38] LABS: Vancomycin Trough 9.3 mcg/mL (10.0-20.0)
[2022-10-05] MEDS: vancomycin HCL 1,500 MG in 0.9 % Sodium Chloride 500 ML 333.33 MG IV (17:20)
[2022-10-05 19:38] LABS: Glucose, Whole Blood 217 mg/dL (60-115)
[2022-10-05] MEDS: Gabapentin 100 MG CAPSULE 200 MG PO (22:08)
[2022-10-05] MEDS: Insulin Glargine,Hum.rec.anlog 100 UNIT/ML 10 ML VIAL 44 UNIT SUBCUT (22:09)
[2022-10-06] VITALS (8 sets, daily range): BP systolic 157–178; BP diastolic 75–88; PULSE 73–87; RESP 14–18; TEMP 36.6–37.3; O2SAT 93–96
[2022-10-06] MEDS: methylPREDNISolone Sod Succ 40 MG/ML VIAL IVPUSH ×2 (05:14→17:18)
[2022-10-06 06:57] LABS: Creatinine Clr Calc Pharmacy 57.1; Estimated Glomerular Filt Rate > 60
[2022-10-06 07:33] LABS: Glucose, Whole Blood 94 mg/dL (60-115)
--- NOTE | 2022-10-06 07:58 | HE.PHANOTE ---
VANCOMYCIN DOSE ADJUSTMENT BASED ON SCR OF 1.12 DOSE CONTINUED AT 1500 Q 24H. NEXT TROUGH AT 10/07 @ 1600
[2022-10-06] MEDS: Albuterol/Iprat 2.5/0.5MG 3 ML AMPUL.NEB INHALE ×4 (08:23→20:06)
--- NOTE | 2022-10-06 09:11 | P.CONPL_ITS ---
History of Present Illness History of Present Illness Consult date: 10/06/22 Chief complaint: NAUSEA/COUGHING Narrative: This is an in patient pulmonary consultation. The patient is a 72-year-old gentleman with past medical history significant for diabetes mellitus type 2, coronary artery disease, asthma, chronic kidney disease was seen at [facility] on 09/28/2022 with symptoms of shortness of breath and was diagnosed to have influenza A infection since symptoms were present a week prior to his presentation patient was not treated with Tamiflu, and was discharged home on prednisone and bronchodilators,patient return back to [facility] today due to persistent symptoms of shortness of breath, cough, productive of yellowish green phlegm, generalized weakness ,associated with dizziness, and diarrhea of 2-3 days duration watery stools with no blood, he denies associated nausea, vomiting, he also complains of right-sided chest discomfort mainly with coughing, patient workup in the emergency room revealed an elevated WBC count likely related to use of steroids, patient was noted to have a fever of 102.8 he was tachypneic tachycardic finger oximetry 91% on 2 L chest x-ray suggestive of right lung patchy opacities, CRP 23.03, creatinine of 2.05 with a baseline creatinine around 1.34, patient treated in the emergency room with 1 dose of Tamiflu, IV azithromycin, IV ceftriaxone and now being admitted to [facility] due to pneumonia. The patient had a CT scan of the chest demonstrating necrotizing/cavitary pneumonia primarily the right lung. There is some nodular densities as well. Therefore I do agree that hematogenous spread is also in differential. Infectious Disease recommended IV antibiotics to 4 weeks to make sure the risk of endocarditis is however. Will be reasonable at this time. Review of Systems Review of Systems: General - dizziness, fever and chills. CVS - right-sided chest pain, no palpitation. Gastrointestinal no nausea no vomiting, no abdominal pain no urinary urgency, no frequency Skin no rash Yes all other systems are reviewed and are negative [facility] Past Medical History Medical History (Updated 10/06/22 @ 09:14 by Nate Roach MD) Annual physical exam CAD (coronary artery disease) Cavitary pneumonia CKD (chronic kidney disease) stage 3, GFR 30-59 ml/min Diabetes mellitus Essential hypertension Former smoker Former smoker Hyperparathyroidism Hypovitaminosis D USP (current) use of insulin Microalbuminuria Moderate asthma MRSA bacteremia Obese Pure hypercholesterolemia Family History Family History Father Diabetes Mother Diabetes Son No problems noted. Son No problems noted. Son No problems noted. Son No problems noted. Family history: reviewed and not pertinent Surgical History Surgical History H/O colonoscopy History of lipoma Social History Social History Household Members: Spouse Housing: Apartment Do you presently have visiting nurse or other home services: Yes Alcohol intake: current Alcohol intake frequency: holidays/special occasions only Patient Tobacco Use Status: Former Tobacco user Tobacco use type: Cigarette e-Cigarette/Vaping Use: Never Used Second Hand Smoke Exposure: No Advance Directives Date on File: 07/30/20 service: No Current occupational status: retired Cognitive needs: No Hearing needs: No Vision needs: No Meds Allergies Allergy/AdvReac Type Severity Reaction Status Date / Time gabapentin Allergy Mild Itching Verified 08/03/22 10:57 Active Medications: Current Medications Acetaminophen (Acetaminophen 325 Mg Tablet) 650 mg PO Q6H PRN PRN Reason: Pain, Mild (Pain Scale 1-3) Last Admin: 10/03/22 06:22 Dose: 650 mg Albuterol Sulfate (Albuterol Sulfate 90 Mcg 8 Gm Inhaler) 1 puff INHALE QID PRN PRN Reason: shortness of breath or wheezing Albuterol/Ipratropium (Albuterol/Iprat 2.5/0.5mg 3 Ml Ampul.Neb) 3 ml INHALE QID [facility] Last Admin: 10/06/22 08:23 Dose: 3 ml Amlodipine Besylate (Amlodipine Besylate 5 Mg Tablet) 5 mg PO DAILY [facility]; Protocol Last Admin: 10/05/22 08:05 Dose: 5 mg Atorvastatin Calcium (Atorvastatin Calcium 40 Mg Tablet) 40 mg PO DAILY [facility] Last Admin: 10/05/22 08:05 Dose: 40 mg Dextrose (Dextrose 50 % 25 Gm/50 Ml Syringe) 25 gm IVPUSH Q15M PRN; Protocol PRN Reason: per Hypoglycemia Standing Ord. Enoxaparin Sodium (Enoxaparin Sodium 40 Mg/0.4 Ml Syringe) 40 mg SUBCUT Q24H [facility] Last Admin: 10/05/22 16:27 Dose: 40 mg Fluticasone/Vilanterol (Fluticasone/Vilanterol 100/25 Blst.W.Dev) 1 puff INHALE RDAILY [facility] Last Admin: 10/05/22 07:37 Dose: 1 puff Gabapentin (Gabapentin 100 Mg Capsule) 200 mg PO BEDTIME [facility] Last Admin: 10/05/22 22:08 Dose: 200 mg Glipizide (Glipizide 10 Mg Tablet) 10 mg PO DAILY [facility] Last Admin: 10/05/22 08:05 Dose: 10 mg Glucose (Glucose Gel 15 Gm Gel..Gram.) 15 gm PO Q15M PRN; Protocol PRN Reason: per Hypoglycemia Standing Ord. Guaifenesin/Dextromethorphan (Guaifenesin Dm 100/10/5 Ml 5 Ml Syrup) 10 ml PO TID [facility] Last Admin: 10/05/22 22:08 Dose: 10 ml Vancomycin HCl 1,500 mg/ (Sodium Chloride) 500 mls @ 333.333 mls/hr IV Q24H [facility] Last Infusion: 10/05/22 19:44 Dose: Infused Insulin Glargine (Insulin Glargine,Hum.Rec.Anlog 100 Unit/Ml 10 Ml Vial) 44 unit SUBCUT BEDTIME [facility] Last Admin: 10/05/22 22:09 Dose: 44 unit Insulin Human Lispro (Insulin Lispro 100 Unit/Ml 3 Ml Vial) 0 unit SUBCUT QIDACHS [facility]; Protocol Last Admin: 10/05/22 22:10 Dose: 4 unit Melatonin (Melatonin 3 Mg Tablet) 3 mg PO BEDTIME PRN PRN Reason: Insomnia Methylprednisolone Sodium Succinate (Methylprednisolone Sod Succ 40 Mg/Ml Vial) 40 mg IVPUSH Q12H [facility] Last Admin: 10/06/22 05:14 Dose: 40 mg Metoprolol Succinate (Metoprolol Succinate Er 100 Mg Tab.Er.24h) 100 mg PO DAILY [facility]; Protocol Last Admin: 10/05/22 08:05 Dose: 100 mg Non-Formulary Medication (Terbinafine Hcl) 250 mg PO DAILY [facility] Olanzapine (Olanzapine 2.5 Mg Tablet) 2.5 mg PO BEDTIME PRN PRN Reason: insomnia Ondansetron HCl (Ondansetron Hcl 4 Mg/2 Ml Vial) 4 mg IVPUSH Q8H PRN PRN Reason: Nausea and Vomiting Pharmacy Consult (Consult Rx Vancomycin Dosing) 1 each MISCELLANE DAILY PRN PRN Reason: Consult order Sodium Chloride (0.9 % Sodium Chloride Flush 3 Ml Syringe) 3 ml IVFLUSH QSHIFT [facility] Last Admin: 10/05/22 22:09 Dose: 3 ml Vitamin D (Cholecalciferol (Vitamin D3) 25 Mcg Tablet) 25 mcg PO DAILY [facility] Last Admin: 10/05/22 08:05 Dose: 25 mcg Home Medications Medication Instructions Recorded Confirmed Last Taken Type insulin glargine U-300 conc 300 56 unit subcut BEDTIME 10/01/22 10/01/22 09/30/22 History unit/mL (3 mL) subcutaneous pen (Toujeo Max U-300 SoloStar) prednisone 20 mg tablet 1 tab PO BID 10/01/22 10/01/22 10/01/22 History Physical Exam Vital Signs: Vital Signs: Last Vital Signs Temp 98.4 F 10/06/22 07:26 Pulse 83 10/06/22 08:23 Resp 18 10/06/22 08:23 BP 167/85 H 10/06/22 07:26 Pulse Ox 93 10/06/22 07:26 O2 Del Method 10/06/22 07:26 O2 Flow Rate 2 10/02/22 19:33 Oxygen Flow Rate 2 10/01/22 16:59 BMI result Body Mass Index 28.3 Appearing in no acute distress lung sounds are clear to auscultation heart regular rate rhythm, clear S1, S2 positive bowel sounds, abdomen is soft, nontender neuro patient is alert x3, no focal deficits Results Laboratory Findings CBC and BMP: 10/01/22 13:25 10/06/22 05:12 ABG, PT/INR, D-dimer: PT/INR, D-dimer PT 14.5 SEC (10.0-13.1) H 10/01/22 13:25 INR 1.3 (0.9-1.1) H 10/01/22 13:25 Abnormal lab findings: Abnormal Labs 10/01/22 10/01/22 10/01/22 13:25 13:25 13:25 WBC 18.9 H RBC 4.47 L Hgb 12.5 L Hct 36.8 L Band Neutrophils % 20 H Lymphocytes % (Manual) 11 L Monocytes % (Manual) 16 H Abs Neuts (Manual) 13.2 H Monocytes # (Manual) 3.0 H ESR 34 H PT INR Sodium 131 L BUN 26 H Creatinine 2.05 H POC Glucose Random Glucose 294 H Lactic Acid Total Bilirubin 1.1 H C-Reactive Protein 23.03 H B-Natriuretic Peptide Total Protein 6.2 L Urine Protein Urine Glucose (UA) Urine Blood Vancomycin Trough 10/01/22 10/01/22 10/01/22 13:25 13:25 13:42 WBC RBC Hgb Hct Band Neutrophils % Lymphocytes % (Manual) Monocytes % (Manual) Abs Neuts (Manual) Monocytes # (Manual) ESR PT 14.5 H INR 1.3 H Sodium BUN Creatinine POC Glucose Random Glucose Lactic Acid 2.1 H* Total Bilirubin C-Reactive Protein B-Natriuretic Peptide 272 H Total Protein Urine Protein Urine Glucose (UA) Urine Blood Vancomycin Trough 10/01/22 10/01/22 10/02/22 15:50 20:26 07:40 WBC RBC Hgb Hct Band Neutrophils % Lymphocytes % (Manual) Monocytes % (Manual) Abs Neuts (Manual) Monocytes # (Manual) ESR PT INR Sodium BUN Creatinine POC Glucose 269 H 281 H Random Glucose Lactic Acid Total Bilirubin C-Reactive Protein B-Natriuretic Peptide Total Protein Urine Protein 100 (2+) H Urine Glucose (UA) 500 H Urine Blood Moderate (2+) H Vancomycin Trough 10/02/22 10/02/22 10/02/22 08:02 11:28 16:27 WBC RBC Hgb Hct Band Neutrophils % Lymphocytes % (Manual) Monocytes % (Manual) Abs Neuts (Manual) Monocytes # (Manual) ESR PT INR Sodium BUN 28 H D Creatinine 1.69 H POC Glucose 349 H 311 H Random Glucose 290 H D Lactic Acid Total Bilirubin C-Reactive Protein B-Natriuretic Peptide Total Protein Urine Protein Urine Glucose (UA) Urine Blood Vancomycin Trough 10/02/22 10/03/22 10/03/22 20:14 05:48 07:35 WBC RBC Hgb Hct Band Neutrophils % Lymphocytes % (Manual) Monocytes % (Manual) Abs Neuts (Manual) Monocytes # (Manual) ESR PT INR Sodium BUN Creatinine 1.50 H POC Glucose 338 H 245 H Random Glucose Lactic Acid Total Bilirubin C-Reactive Protein B-Natriuretic Peptide Total Protein Urine Protein Urine Glucose (UA) Urine Blood Vancomycin Trough 10/03/22 10/03/22 10/03/22 11:20 15:33 19:35 WBC RBC Hgb Hct Band Neutrophils % Lymphocytes % (Manual) Monocytes % (Manual) Abs Neuts (Manual) Monocytes # (Manual) ESR PT INR Sodium BUN Creatinine POC Glucose 287 H 289 H 339 H Random Glucose Lactic Acid Total Bilirubin C-Reactive Protein B-Natriuretic Peptide Total Protein Urine Protein Urine Glucose (UA) Urine Blood Vancomycin Trough 10/04/22 10/04/22 10/04/22 08:20 11:18 16:23 WBC RBC Hgb Hct Band Neutrophils % Lymphocytes % (Manual) Monocytes % (Manual) Abs Neuts (Manual) Monocytes # (Manual) ESR PT INR Sodium BUN Creatinine POC Glucose 133 H 316 H 341 H Random Glucose Lactic Acid Total Bilirubin C-Reactive Protein B-Natriuretic Peptide Total Protein Urine Protein Urine Glucose (UA) Urine Blood Vancomycin Trough 10/04/22 10/05/22 10/05/22 20:05 11:17 15:33 WBC RBC Hgb Hct Band Neutrophils % Lymphocytes % (Manual) Monocytes % (Manual) Abs Neuts (Manual) Monocytes # (Manual) ESR PT INR Sodium BUN Creatinine POC Glucose 262 H 137 H 234 H Random Glucose Lactic Acid Total Bilirubin C-Reactive Protein B-Natriuretic Peptide Total Protein Urine Protein Urine Glucose (UA) Urine Blood Vancomycin Trough 10/05/22 10/05/22 16:10 19:33 WBC RBC Hgb Hct Band Neutrophils % Lymphocytes % (Manual) Monocytes % (Manual) Abs Neuts (Manual) Monocytes # (Manual) ESR PT INR Sodium BUN Creatinine POC Glucose 217 H Random Glucose Lactic Acid Total Bilirubin C-Reactive Protein B-Natriuretic Peptide Total Protein Urine Protein Urine Glucose (UA) Urine Blood Vancomycin Trough 9.3 L Microbiology: Microbiology 10/04/22 13:54 Blood - Venous Blood Culture - Preliminary No growth after 24 hours. 10/04/22 13:54 Blood - Venous Blood Culture - Preliminary No growth after 24 hours. 10/01/22 13:42 Blood - Venous Blood Culture - Final Methicillin Res Staph Aureus 10/01/22 13:25 Blood - Venous Blood Culture - Final Methicillin Res Staph Aureus Assessment and Plan (1) Cavitary pneumonia: Status: Acute (2) MRSA bacteremia: Status: Acute (3) Influenza A: Status: Acute (4) Moderate asthma: Qualifiers: Asthma persistence: persistent Asthma complication type: uncomplicated Qualified Code(s): J45.40 - Moderate persistent asthma, uncomplicated Status: Acute Plan Continue vancomycin to treat for the MRSA pneumonia. It is likely that the cavitary pneumonia is also due to the MRSA. Clinically the patient is already feeling better therefore he is responding well to therapy. Due to the fact that she may have a component of endocarditis infectious Disease this did recommend IV antibiotics 4 weeks. This would be a reasonable approach. Otherwise could treat the patient with doxycycline for an extended period of time. Recommendations: Continue IV antibiotics as per the recommendation of Infectious Disease Continue respiratory therapy with nebulizer therapy and Breo It will be reasonable to taper down to p.o. prednisone and complete a taper The patient will need outpatient pulmonary follow-up with outpatient follow-up imaging studies to assess resolution of the process. Time Spent With Patient Time: Total time managing care of this patient today ____ minutes. Procedures Date of Service Date of Service: 10/06/22
[2022-10-06] MEDS: guaiFENesin DM 100/10/5 ML 5 ML SYRUP 10 ML PO ×3 (10:00→20:28)
[2022-10-06] MEDS: Metoprolol Succinate ER 100 MG TAB.ER.24H PO (10:00)
[2022-10-06] MEDS: amLODIPine Besylate 5 MG TABLET PO (10:00)
[2022-10-06] MEDS: Cholecalciferol (Vitamin D3) 25 MCG TABLET PO (10:00)
[2022-10-06] MEDS: glipiZIDE 10 MG TABLET PO (10:00)
[2022-10-06] MEDS: 0.9 % Sodium Chloride Flush 3 ML SYRINGE IVFLUSH ×2 (10:03→20:29)
[2022-10-06] MEDS: Atorvastatin Calcium 40 MG TABLET PO (10:08)
[2022-10-06 12:00] LABS: Glucose, Whole Blood 150 mg/dL (60-115)
--- NOTE | 2022-10-06 13:03 | MHC.CM.PN ---
PLAN IS 4 WEEKS 1500 MG IV VANCO QD FLUSH COMPLETED AND UPLOADED INTO [facility]. SON WAS TAUGHT ADMINISTRATION TODAY PICC ORDERED.
--- NOTE | 2022-10-06 14:08 | P.PNIM_ITS ---
Subjective Subjective Date of Service: 10/06/22 Interval History: Continues to improve and IV antibiotics. Remains afebrile Review of Systems Denies chest pain Denies shortness of breath Denies nausea vomiting diarrhea Physical Exam Vital Signs: Vital Signs: Last Vital Signs Temp 98.4 F 10/06/22 07:26 Pulse 87 10/06/22 11:41 Resp 18 10/06/22 11:41 BP 167/85 H 10/06/22 07:26 Pulse Ox 93 10/06/22 07:26 O2 Del Method 10/06/22 07:26 O2 Flow Rate 2 10/02/22 19:33 Oxygen Flow Rate 2 10/01/22 16:59 BMI result Body Mass Index 28.3 Const: Other: No acute issues overnight Resp: Other: Clear to auscultation bilaterally no rales rhonchi or wheezes Cardio: Other: No S4; positive S1-S2; no S3 murmurs rubs or gallops GI: Other: Soft nontender nondistended normoactive bowel sounds Extrem: Other: No edema bilaterally Objective Data Active Medications Acetaminophen (Acetaminophen 325 Mg Tablet) 650 mg PO Q6H PRN PRN Reason: Pain, Mild (Pain Scale 1-3) Last Admin: 10/03/22 06:22 Dose: 650 mg Documented By: ABHISHEK Albuterol Sulfate (Albuterol Sulfate 90 Mcg 8 Gm Inhaler) 1 puff INHALE QID PRN PRN Reason: shortness of breath or wheezing Albuterol/Ipratropium (Albuterol/Iprat 2.5/0.5mg 3 Ml Ampul.Neb) 3 ml INHALE QID [facility] Last Admin: 10/06/22 11:41 Dose: 3 ml Documented By: ROSANNE Amlodipine Besylate (Amlodipine Besylate 5 Mg Tablet) 5 mg PO DAILY [facility]; Protocol Last Admin: 10/06/22 10:00 Dose: 5 mg Documented By: DEN Atorvastatin Calcium (Atorvastatin Calcium 40 Mg Tablet) 40 mg PO DAILY [facility] Last Admin: 10/06/22 10:08 Dose: 40 mg Documented By: DEN Dextrose (Dextrose 50 % 25 Gm/50 Ml Syringe) 25 gm IVPUSH Q15M PRN; Protocol PRN Reason: per Hypoglycemia Standing Ord. Enoxaparin Sodium (Enoxaparin Sodium 40 Mg/0.4 Ml Syringe) 40 mg SUBCUT Q24H [facility] Last Admin: 10/05/22 16:27 Dose: 40 mg Documented By: ELIGIO Fluticasone/Vilanterol (Fluticasone/Vilanterol 100/25 Blst.W.Dev) 1 puff INHALE RDAILY [facility] Last Admin: 10/06/22 12:18 Dose: Not Given Documented By: JOHNY Non-Admin Reason: Med Not Available Gabapentin (Gabapentin 100 Mg Capsule) 200 mg PO BEDTIME [facility] Last Admin: 10/05/22 22:08 Dose: 200 mg Documented By: NIRMAL Glipizide (Glipizide 10 Mg Tablet) 10 mg PO DAILY [facility] Last Admin: 10/06/22 10:00 Dose: 10 mg Documented By: DEN Glucose (Glucose Gel 15 Gm Gel..Gram.) 15 gm PO Q15M PRN; Protocol PRN Reason: per Hypoglycemia Standing Ord. Guaifenesin/Dextromethorphan (Guaifenesin Dm 100/10/5 Ml 5 Ml Syrup) 10 ml PO TID [facility] Last Admin: 10/06/22 13:59 Dose: 10 ml Documented By: DEN Vancomycin HCl 1,500 mg/ (Sodium Chloride) 500 mls @ 333.333 mls/hr IV Q24H [facility] Last Infusion: 10/05/22 19:44 Dose: 0 mls/hr Documented By: NIRMAL Insulin Glargine (Insulin Glargine,Hum.Rec.Anlog 100 Unit/Ml 10 Ml Vial) 44 unit SUBCUT BEDTIME [facility] Last Admin: 10/05/22 22:09 Dose: 44 unit Documented By: NIRMAL Insulin Human Lispro (Insulin Lispro 100 Unit/Ml 3 Ml Vial) 0 unit SUBCUT QIDACHS [facility]; Protocol Last Admin: 10/06/22 11:57 Dose: Not Given Documented By: DEN Non-Admin Reason: No Insulin Coverage Melatonin (Melatonin 3 Mg Tablet) 3 mg PO BEDTIME PRN PRN Reason: Insomnia Methylprednisolone Sodium Succinate (Methylprednisolone Sod Succ 40 Mg/Ml Vial) 40 mg IVPUSH Q12H [facility] Last Admin: 10/06/22 05:14 Dose: 40 mg Documented By: NIRMAL Metoprolol Succinate (Metoprolol Succinate Er 100 Mg Tab.Er.24h) 100 mg PO DAILY [facility]; Protocol Last Admin: 10/06/22 10:00 Dose: 100 mg Documented By: DEN Non-Formulary Medication (Terbinafine Hcl) 250 mg PO DAILY [facility] Olanzapine (Olanzapine 2.5 Mg Tablet) 2.5 mg PO BEDTIME PRN PRN Reason: insomnia Ondansetron HCl (Ondansetron Hcl 4 Mg/2 Ml Vial) 4 mg IVPUSH Q8H PRN PRN Reason: Nausea and Vomiting Pharmacy Consult (Consult Rx Vancomycin Dosing) 1 each MISCELLANE DAILY PRN PRN Reason: Consult order Sodium Chloride (0.9 % Sodium Chloride Flush 3 Ml Syringe) 3 ml IVFLUSH QSHIFT [facility] Last Admin: 10/06/22 10:03 Dose: 3 ml Documented By: DEN Vitamin D (Cholecalciferol (Vitamin D3) 25 Mcg Tablet) 25 mcg PO DAILY [facility] Last Admin: 10/06/22 10:00 Dose: 25 mcg Documented By: DEN Labs CBC & Chem 7: 10/01/22 13:25 10/06/22 05:12 Labs: Laboratory Results - last 24 hr 10/05/22 10/05/22 10/05/22 15:33 16:10 19:33 Estim Creat Clear Calc Estimated GFR POC Glucose 234 H 217 H Vancomycin Trough 9.3 L 10/06/22 10/06/22 10/06/22 05:12 07:26 11:56 Estim Creat Clear Calc 57.1 Estimated GFR > 60 POC Glucose 94 150 H Vancomycin Trough Microbiology Microbiology Results: Microbiology 10/04/22 13:54 Blood Culture - Preliminary Blood - Venous No growth after 24 hours. 10/04/22 13:54 Blood Culture - Preliminary Blood - Venous No growth after 24 hours. Assessment and Plan (1) MRSA bacteremia: Status: Acute (2) Cavitary pneumonia: Status: Acute (3) CKD (chronic kidney disease) stage 3, GFR 30-59 ml/min: Status: Acute (4) Essential hypertension: Status: Acute (5) Diabetes mellitus: Status: Acute Plan 72-year-old gentleman with past medical history of diabetes mellitus type 2, coronary artery disease, asthma, chronic kidney disease stage 3 recently diagnosed to have influenza a on September 28 presented to [facility] with persistent shortness of breath cough dizziness diarrhea and right-sided chest discomfort with coughing patient diagnosed to have pneumonia, acute on chronic kidney disease therefore being admitted to [facility]. 1.MRSA Bacteremia /cavitary pneumonia -IV vancomycin x4 weeks -PICC line in a.m. -pulmonary evaluation appreciated -IV steroids/DuoNeb therapy 2Acute on chronic kidney disease stage 3 -hold ARB and other nephrotoxins -follow renals/divalents 3.Hypertension -acceptable control on current therapies -amlodipine/metoprololhold losartan -add back when appropriate 4.Diabetes mellitus type 2 -continue outpatient therapies -lispro correctional scale -ADA diet DVT prophylaxis with Lovenox Code status full code Will require ongoing hospitalization for IV antibiotics pending PICC line placement for 4 weeks of continue vancomycin therapy Time Spent With Patient Time: Total time managing care of this patient today ____ minutes. Quality Stroke Does the patient have a stroke diagnosis?: No VTE Prior VTE?: No VTE Risk Level:: Medical - moderate - high VTE Device Contraindication: Treatment Not Indicated VTE Drug Contraindication: N/A - Med Ordered
[2022-10-06 17:02] LABS: Glucose, Whole Blood 278 mg/dL (60-115)
[2022-10-06] MEDS: Insulin Lispro 100 UNIT/ML 3 ML VIAL SUBCUT ×2 (17:17→20:29)
[2022-10-06] MEDS: vancomycin HCL 1,500 MG in 0.9 % Sodium Chloride 500 ML 333.33 MG IV (17:17)
[2022-10-06] MEDS: Enoxaparin Sodium 40 MG/0.4 ML SYRINGE SUBCUT (17:17)
[2022-10-06 20:01] LABS: Glucose, Whole Blood 206 mg/dL (60-115)
[2022-10-06] MEDS: Gabapentin 100 MG CAPSULE 200 MG PO (20:28)
[2022-10-06] MEDS: Insulin Glargine,Hum.rec.anlog 100 UNIT/ML 10 ML VIAL 44 UNIT SUBCUT (20:29)
[2022-10-07] VITALS (7 sets, daily range): BP systolic 165–172; BP diastolic 81–89; PULSE 73–95; RESP 15–18; TEMP 36.2–36.8; O2SAT 92–96
[2022-10-07] MEDS: methylPREDNISolone Sod Succ 40 MG/ML VIAL IVPUSH (05:55)
[2022-10-07 07:20] LABS: Creatinine Clr Calc Pharmacy 56.6; Estimated Glomerular Filt Rate > 60
[2022-10-07 07:43] LABS: Glucose, Whole Blood 45 mg/dL (60-115)
[2022-10-07 08:01] LABS: Glucose, Whole Blood 105 mg/dL (60-115)
[2022-10-07 08:14] LABS: Glucose Random 77 mg/dL (60-115)
[2022-10-07] MEDS: 0.9 % Sodium Chloride Flush 3 ML SYRINGE IVFLUSH (08:56)
[2022-10-07] MEDS: Atorvastatin Calcium 40 MG TABLET PO (08:56)
[2022-10-07] MEDS: Cholecalciferol (Vitamin D3) 25 MCG TABLET PO (08:56)
[2022-10-07] MEDS: guaiFENesin DM 100/10/5 ML 5 ML SYRUP 10 ML PO ×2 (08:56→14:20)
[2022-10-07] MEDS: glipiZIDE 10 MG TABLET PO (08:56)
[2022-10-07] MEDS: Metoprolol Succinate ER 100 MG TAB.ER.24H PO (08:56)
[2022-10-07] MEDS: amLODIPine Besylate 5 MG TABLET PO (08:56)
[2022-10-07] MEDS: Albuterol/Iprat 2.5/0.5MG 3 ML AMPUL.NEB INHALE ×3 (08:58→16:08)
[2022-10-07] MEDS: Fluticasone/Vilanterol 100/25 BLST.W.DEV 1 PUFF INHALE (08:58)
--- NOTE | 2022-10-07 11:11 | P.DS_ITS ---
DS: Providers Provider Date of Service: 10/07/22 Date of admission: 10/01/22 16:41 Date of discharge: 10/07/22 Primary care physician: Rose Mary Mcneill MD Consults: 10/03/22 12:57 Consult to Infectious Diseases Routine Consulting Provider: Mary Kate Cordova Reason for consultation: staph bacteremia 10/05/22 09:43 Consult to Pulmonology Routine Consulting Provider: Nate Roach Reason for consultation: Possible lung cavitation Has provider been notified: No 10/07/22 07:33 Consult to Nephrology Stat Consulting Provider: Deniz Aguilar Reason for consultation: Clearance for PICC in backedrop of CKD Has provider been notified: Yes DS: Diagnosis Discharge Diagnosis (1) MRSA bacteremia: Status: Acute (2) Cavitary pneumonia: Status: Acute (3) CKD (chronic kidney disease) stage 3, GFR 30-59 ml/min: Status: Acute (4) Essential hypertension: Status: Acute (5) Diabetes mellitus: Status: Acute DS: Summary Hospital Course Hospital Course: 72-year-old gentleman with past medical history significant for diabetes mellitus type 2, coronary artery disease, asthma, chronic kidney disease was seen at [facility] on 09/28/2022 with symptoms of shortness of breath and was diagnosed to have influenza A infection since symptoms were present a week prior to his presentation patient was not treated with Tamiflu, and was discharged home on prednisone and bronchodilators,patient return back to [facility] today due to persistent symptoms of shortness of breath, cough, productive of yellowish green phlegm, generalized weakness ,associated with dizziness, and diarrhea of 2-3 days duration watery stools with no blood, he denies associated nausea, vomiting, he also complains of right-sided chest discomfort mainly with coughing, patient workup in the emergency room revealed an elevated WBC count likely related to use of steroids, patient was noted to have a fever of 102.8 he was tachypneic tachycardic finger oximetry 91% on 2 L chest x-ray suggestive of right lung patchy opacities, CRP 23.03, creatinine of 2.05 with a baseline creatinine around 1.34, patient treated in the emergency room with 1 dose of Tamiflu, IV azithromycin, IV ceftriaxone and now being admitted to [facility] due to pneumonia. Hospital Course Admitted to hospital on IV azithromycin ceftriaxone. Ultimately blood cultures drawn demonstrated 2/2 MRSA bacteremia. Seen in consultation by Infectious Disease and pulmonology. Both for agreement this was secondary to cavitary pneumonia and he was switched to vancomycin. 2D echo done failed to demonstrate any acute valvular pathology. At this time and is recommendation of ID to complete a 4 week course of IV vancomycin. PICC line inserted today and patient is acceptable for discharge to home to follow-up VNA and PCP Time Spent with Patient Time attestation: Total time managing care of this patient today ____ minutes. Discharge coordination time: Greater than 30 minutes Quality: Safe Use of Opioids Does Pt have an Active Cancer Diagnosis on the Problem List?: No Quality: Stroke Does the patient have a stroke diagnosis?: No Physical Exam Vital Signs: Vital Signs: Last Vital Signs Temp 97.1 F 10/07/22 08:00 Pulse 76 10/07/22 09:00 Resp 18 10/07/22 09:00 BP 165/89 H 10/07/22 08:00 Pulse Ox 94 10/07/22 08:00 O2 Del Method 10/07/22 08:00 O2 Flow Rate 2 10/02/22 19:33 Oxygen Flow Rate 2 10/01/22 16:59 BMI result Body Mass Index 28.3 Const: Other: No acute issues overnight Resp: Other: Clear to auscultation bilaterally no rales rhonchi or wheezes Cardio: Other: No S4; positive S1-S2; no S3 murmurs rubs or gallops GI: Other: Soft nontender nondistended normoactive bowel sounds Extrem: Other: No edema bilaterally DS: Data Data Completed and Pending Labs on day of discharge: Laboratory Results - last 24 hr 10/06/22 10/06/22 10/06/22 11:56 15:37 19:57 Creatinine Estim Creat Clear Calc Estimated GFR POC Glucose 150 H 278 H 206 H Random Glucose 10/07/22 10/07/22 10/07/22 05:55 07:25 07:57 Creatinine 1.13 Estim Creat Clear Calc 56.6 Estimated GFR > 60 POC Glucose 45 L* 105 Random Glucose 77 Preliminary micro results at discharge 10/04/22 13:54 Blood Culture - Preliminary Blood - Venous No growth after 48 hours. 10/04/22 13:54 Blood Culture - Preliminary Blood - Venous No growth after 48 hours. Discharge Plan Discharge Anticipated Discharge Date/Time: 10/07/22 11:15 Patient Disposition: Home Health Service Discharge Diagnosis: MRSA bacteremia Referrals: [facility] [Outside] - 1 Week Rose Mary Jones MD [Primary Care Provider] - 1 Week Discharge Medications: New vancomycin 1.5 gram recon soln 1.5 g IV Q24H Qty: 28 0RF prednisone 10 mg tablet See Rx Instructions .Route .COMPLEX Qty: 45 0RF Rx Instructions: 10 mg orally; 5 tabs p.o. daily x3 days; 4 tabs p.o. daily x3 days; 3 tabs daily x3 days; 2 tabs daily x3 days; 1 tab daily x3 days Continued Flovent HFA 110 mcg/actuation HFA aerosol inhaler 1 puff PO BID 30 Days Qty: 12 11RF metoprolol succinate 100 mg tablet extended release 24 hr 100 mg PO DAILY Qty: 90 3RF atorvastatin 40 mg tablet 40 mg PO DAILY Qty: 90 3RF cholecalciferol (vitamin D3) 25 mcg (1,000 unit) capsule 25 mcg PO DAILY 90 Days Qty: 90 1RF terbinafine HCl 250 mg tablet 250 mg PO DAILY 90 Days Qty: 90 0RF glipizide 10 mg tablet 10 mg PO QAM 90 Days Qty: 90 2RF albuterol sulfate 90 mcg/actuation HFA aerosol inhaler 1 inh inhalation QID PRN (Reason: shortness of breath or wheezing) Qty: 8.5 0RF albuterol sulfate 2.5 mg /3 mL (0.083 %) solution for nebulization 2.5 mg inhalation Q4-6H PRN (Reason: shortness of breath or wheezing) Qty: 90 0RF prednisone 20 mg tablet 1 tab PO BID Toujeo Max U-300 SoloStar 300 unit/mL (3 mL) insulin pen 56 unit subcut BEDTIME (DME) blood-glucose meter [FreeStyle Lite Meter] Kit See Rx Instructions .Route Qty: 1 0RF Rx Instructions: As directed (DME) FreeStyle Lite Strips Strip See Rx Instructions .Route Qty: 50 6RF Rx Instructions: As directed (DME) lancets [FreeStyle Lancets] 28 gauge misc See Rx Instructions .Route Qty: 100 6RF Rx Instructions: As directed gabapentin 100 mg capsule 200 mg PO BEDTIME 90 Days Qty: 180 1RF losartan 100 mg tablet 100 mg PO DAILY 90 Days Qty: 90 1RF olanzapine 2.5 mg tablet 2.5 mg PO BEDTIME PRN (Reason: insomnia) 90 Days Qty: 90 1RF metformin 500 mg tablet 500 mg PO BID 90 Days Qty: 180 3RF No Action amlodipine 5 mg tablet 5 mg PO DAILY 90 Days Qty: 90 1RF Discharge Orders: Discharge Order (Routine); Ordered 10/07/22 Ordered By: Zurdo Islas Diet: Advance to usual diet Activity on Discharge: As tolerated Stand Alone Forms: Patient Portal Discharge page Care Plan Goals: Resume all pre-hospital medications and therapies Health Concerns: VNA to assist with administration; vancomycin 1.5 g daily for 28 days. Complete prednisone taper as ordered Plan of Treatment: Follow-up with PCP in 2 weeks Assessment: See discharge summary Discharge Date/Time: 10/07/22 17:03
--- NOTE | 2022-10-07 11:47 | HO.PICC ---
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 Following completion of [place] Protocol the skin and soft tissues were anesthetized with 1% Lidocaine plain. Using ultrasound guidance, [RIGHT BRACHIAL] vein access was obtained ON FIRST ATTEMPT. Over an 0.018 wire through peel-away sheath, a [4 FR SINGLE LUMEN] PICC line was positioned. Catheter length is [40CM] internal length, [0CM] external length, for a total trimmed length of [40CM]. The procedure was performed in [RM. 272]. Tip verification was performed by Brian Fuentes with Sherlock 3CG. Tip located in SVC. Ultrasound was used to document vein patency and for needle entry. A formal ultrasound picture and cardiac rhythm strip was recorded. [employer] Compensation Legal Secretary has released the line for use and it is currently dressed with a StatLock, Tegaderm, and CHG disc. Verification has been performed for blood return and line patency. Arm Circumference: [33CM] Equipment: [[employer] POWER PICC SOLO] Catheter Type: [4 FR SINGLE LUMEN PICC] Lot #: [[id number]]
[2022-10-07 11:59] LABS: Glucose, Whole Blood 233 mg/dL (60-115)
[2022-10-07] MEDS: Insulin Lispro 100 UNIT/ML 3 ML VIAL SUBCUT ×2 (12:32→16:25)
--- NOTE | 2022-10-07 12:53 | MHC.CM.PN ---
PATIENT TO GET HIS VANCO FOR 2 PM. FAMILY AND PATIENT AWARE AND WILL TRANSPORT HIM HOME FOLLOWING. IMM 10/06 IN CHART
[2022-10-07] MEDS: 0.9 % Sodium Chloride Flush 10 ML SYRINGE 5 ML IVFLUSH (14:20)
[2022-10-07] MEDS: vancomycin HCL 1,500 MG in 0.9 % Sodium Chloride 500 ML 333.33 MG IV (14:20)
[2022-10-07 16:06] LABS: Glucose, Whole Blood 299 mg/dL (60-115)
== END 2022-10-07 17:03 | disposition home health service (06) | DRG 202 ==
LOC: HO.ED 15:41 → HO.EDOVER 16:54 → HO.S3 23:31
PROVIDERS: Nurse Practitioner Acute Care; Admitting Provider Hospitalist; Emergency Provider Emergency Medicine Emergency Medical Services; PCP Internal Medicine; Visit Provider Hospitalist
PROC: 02HV33Z Insertion of Infusion Device into Superior Vena Cava, Percutaneous Approach (ICD-10-PCS; principal; 2022-10-07 10:30)
DX: J45.31 Mild persistent asthma with (acute) exacerbation (principal); J15.212 Pneumonia due to Methicillin resistant Staphylococcus aureus; N25.81 Secondary hyperparathyroidism of renal origin; J10.08 Influenza due to other identified influenza virus with other specified pneumonia; I25.10 Atherosclerotic heart disease of native coronary artery without angina pectoris; I12.9 Hypertensive chronic kidney disease with stage 1 through stage 4 chronic kidney disease, or unspecified chronic kidney disease; N18.32 Chronic kidney disease, stage 3b; E11.22 Type 2 diabetes mellitus with diabetic chronic kidney disease; F39 Unspecified mood [affective] disorder; E78.00 Pure hypercholesterolemia, unspecified; Z20.822 Contact with and (suspected) exposure to COVID-19; Z87.891 Personal history of nicotine dependence; Z88.8 Allergy status to other drugs, medicaments and biological substances; Z79.4 Long term (current) use of insulin; Z79.51 Long term (current) use of inhaled steroids; Z79.52 Long term (current) use of systemic steroids; Z79.899 Other long term (current) drug therapy
CPT/HCPCS: 36415; 36573; 71046; 71250; 74176; 80048; 80053; 80202; 81001; 81003; 82565; 82947; 83605; 83690; 83880; 84484; 85007; 85027; 85610; 85652; 85730; 86140; 87040; 87077; 87147; 87186; 87205; 87493; 87635; 93005; 93306; 94640; 97161; 99285; C1751; J0456; J0696; J1650; J2920; J3370

== ENCOUNTER 2022-10-14 14:15 | Outpatient (REF) | payer OTHER, SELFPAY ==
[2022-10-14 14:20] LABS: MANUAL DIFF FLAG NO
[2022-10-14 14:31] LABS: Basophils Percent Auto 0.1 % (0-2); Eosinophils Absolute Auto 0.1 X10*3/uL (0.0-0.4); Eosinophils Percent Auto 0.6 % (0-4); Hematocrit 36.8 % (42.0-52.0); Hemoglobin 11.9 g/dl (14.0-18.0); Imm Gran Abs Auto 0.05 X10*3/uL (0.00-0.03); Imm Gran Pct Auto 0.4 % (0.0-0.4); Lymphocytes Absolute Auto 2.3 X10*3/uL (1.2-4.9); Lymphocytes Percent Auto 19.7 % (20-40); Mean Corpuscular HGB Conc 32.3 g/dl (31.0-36.0); Mean Corpuscular Hemoglobin 27.5 pg (27.0-33.0); Mean Platelet Volume 12.8 fL (9.4-12.4); Monocytes Absolute Auto 1.3 X10*3/uL (0.1-1.2); Monocytes Percent Auto 11.3 % (2-11); Neutrophils Absolute Auto 8.1 x10*3/uL (2.0-8.3); Neutrophils Percent Auto 67.9 % (45-73); Platelet Count 289 X10*3/uL (160-400); Red Blood Count 4.33 X10*6/uL (4.60-5.80); White Blood Count 11.9 X10*3/uL (4.8-10.8)
[2022-10-14 15:29] LABS: Vancomycin Trough 14.5 mcg/mL (10.0-20.0)
[2022-10-14 15:32] LABS: Blood Urea Nitrogen 26 mg/dL (9-16); Estimated Glomerular Filt Rate 46
== END 2022-10-14 14:16 | disposition home or self-care (01) ==
LOC: HO.HVNA 14:15
PROVIDERS: Visit Provider Internal Medicine
DX: R78.81 Bacteremia (principal)
CPT/HCPCS: 80202; 82565; 84520; 85025

== ENCOUNTER 2022-10-21 10:44 | Outpatient (REF) | payer OTHER, SELFPAY ==
[2022-10-21 10:47] LABS: MANUAL DIFF FLAG NO
[2022-10-21 10:54] LABS: Basophils Percent Auto 0.1 % (0-2); Eosinophils Absolute Auto 0.2 X10*3/uL (0.0-0.4); Eosinophils Percent Auto 2.1 % (0-4); Hematocrit 33.9 % (42.0-52.0); Hemoglobin 11.2 g/dl (14.0-18.0); Imm Gran Abs Auto 0.04 X10*3/uL (0.00-0.03); Imm Gran Pct Auto 0.5 % (0.0-0.4); Lymphocytes Absolute Auto 2.6 X10*3/uL (1.2-4.9); Lymphocytes Percent Auto 30.2 % (20-40); Mean Corpuscular Hemoglobin 28.1 pg (27.0-33.0); Mean Corpuscular Volume 85.2 fL (80.0-98.0); Mean Platelet Volume 11.1 fL (9.4-12.4); Monocytes Absolute Auto 0.9 X10*3/uL (0.1-1.2); Monocytes Percent Auto 9.8 % (2-11); Neutrophils Absolute Auto 4.9 x10*3/uL (2.0-8.3); Neutrophils Percent Auto 57.3 % (45-73); Platelet Count 261 X10*3/uL (160-400); Red Blood Count 3.98 X10*6/uL (4.60-5.80); Red Cell Distribution Width 14.6 % (11.0-16.0); White Blood Count 8.6 X10*3/uL (4.8-10.8)
[2022-10-21 11:42] LABS: Blood Urea Nitrogen 19 mg/dL (9-16); Estimated Glomerular Filt Rate 47
[2022-10-21 12:46] LABS: Vancomycin Trough 15.7 mcg/mL (10.0-20.0)
== END 2022-10-21 10:45 | disposition home or self-care (01) ==
LOC: HO.LNP 10:44
PROVIDERS: Visit Provider Internal Medicine
DX: J15.8 Pneumonia due to other specified bacteria (principal); Z79.899 Other long term (current) drug therapy
CPT/HCPCS: 80202; 82565; 84520; 85025

== ENCOUNTER → 2022-10-28 10:57 | Outpatient (BNVA) | payer OTHER, SELFPAY | PROVIDERS: PCP Internal Medicine; Visit Provider Hospitalist | DX: J18.9 Pneumonia, unspecified organism (principal); J98.4 Other disorders of lung; R78.81 Bacteremia; B95.62 Methicillin resistant Staphylococcus aureus infection as the cause of diseases classified elsewhere | CPT/HCPCS: 99212 ==

== ENCOUNTER 2022-10-28 11:35 | Outpatient (REF) | payer OTHER, SELFPAY | END 2022-10-28 11:36 | disposition home or self-care (01) | LOC: HO.LNP 11:35 | PROVIDERS: Visit Provider Internal Medicine | DX: Z13.89 Encounter for screening for other disorder (principal) ==

== ENCOUNTER 2022-10-28 11:39 | Outpatient (REF) | payer OTHER, SELFPAY ==
[2022-10-28 11:44] LABS: MANUAL DIFF FLAG NO
[2022-10-28 11:54] LABS: Basophils Percent Auto 0.2 % (0-2); Eosinophils Absolute Auto 0.2 X10*3/uL (0.0-0.4); Eosinophils Percent Auto 3.9 % (0-4); Hematocrit 33.8 % (42.0-52.0); Hemoglobin 11.1 g/dl (14.0-18.0); Imm Gran Abs Auto 0.03 X10*3/uL (0.00-0.03); Imm Gran Pct Auto 0.5 % (0.0-0.4); Lymphocytes Absolute Auto 1.8 X10*3/uL (1.2-4.9); Lymphocytes Percent Auto 29.5 % (20-40); Mean Corpuscular HGB Conc 32.8 g/dl (31.0-36.0); Mean Corpuscular Hemoglobin 28.3 pg (27.0-33.0); Mean Corpuscular Volume 86.2 fL (80.0-98.0); Mean Platelet Volume 11.9 fL (9.4-12.4); Monocytes Absolute Auto 0.8 X10*3/uL (0.1-1.2); Monocytes Percent Auto 12.2 % (2-11); Neutrophils Absolute Auto 3.3 x10*3/uL (2.0-8.3); Neutrophils Percent Auto 53.7 % (45-73); Platelet Count 201 X10*3/uL (160-400); Red Blood Count 3.92 X10*6/uL (4.60-5.80); Red Cell Distribution Width 15.4 % (11.0-16.0); White Blood Count 6.2 X10*3/uL (4.8-10.8)
[2022-10-28 12:29] LABS: Blood Urea Nitrogen 15 mg/dL (9-16); Estimated Glomerular Filt Rate 50
== END 2022-10-28 11:40 | disposition home or self-care (01) ==
LOC: HO.HVNA 11:39
PROVIDERS: Visit Provider Internal Medicine
DX: J15.8 Pneumonia due to other specified bacteria (principal); Z79.899 Other long term (current) drug therapy
CPT/HCPCS: 36415; 80202; 82565; 84520; 85025

== ENCOUNTER 2022-11-02 15:07 | Outpatient (REF) | payer OTHER, SELFPAY ==
[2022-11-02 15:18] LABS: MANUAL DIFF FLAG NO
[2022-11-02 15:27] LABS: Basophils Percent Auto 0.4 % (0-2); Eosinophils Absolute Auto 0.1 X10*3/uL (0.0-0.4); Eosinophils Percent Auto 1.2 % (0-4); Hematocrit 34.6 % (42.0-52.0); Hemoglobin 11.1 g/dl (14.0-18.0); Imm Gran Abs Auto 0.03 X10*3/uL (0.00-0.03); Imm Gran Pct Auto 0.4 % (0.0-0.4); Lymphocytes Absolute Auto 1.4 X10*3/uL (1.2-4.9); Lymphocytes Percent Auto 19.1 % (20-40); Mean Corpuscular HGB Conc 32.1 g/dl (31.0-36.0); Mean Corpuscular Volume 87.2 fL (80.0-98.0); Mean Platelet Volume 11.7 fL (9.4-12.4); Monocytes Absolute Auto 0.8 X10*3/uL (0.1-1.2); Monocytes Percent Auto 11.2 % (2-11); Neutrophils Absolute Auto 5.1 x10*3/uL (2.0-8.3); Neutrophils Percent Auto 67.7 % (45-73); Platelet Count 243 X10*3/uL (160-400); Red Blood Count 3.97 X10*6/uL (4.60-5.80); Red Cell Distribution Width 15.4 % (11.0-16.0); White Blood Count 7.5 X10*3/uL (4.8-10.8)
[2022-11-02 16:14] LABS: Vancomycin Trough 13.5 mcg/mL (10.0-20.0)
[2022-11-02 16:24] LABS: Blood Urea Nitrogen 13 mg/dL (9-16); Estimated Glomerular Filt Rate 48
== END 2022-11-02 15:08 | disposition home or self-care (01) ==
LOC: HO.HVNA 15:07
PROVIDERS: Visit Provider Internal Medicine
DX: J15.8 Pneumonia due to other specified bacteria (principal); Z79.899 Other long term (current) drug therapy
CPT/HCPCS: 36415; 80202; 82565; 84520; 85025

== ENCOUNTER 2022-11-05 13:58 | Outpatient (REF) | payer OTHER, SELFPAY ==
--- NOTE | ~2022-11-05 | XR_ITS ---
EXAMINATION: XR CHEST 2 VIEWS CLINICAL INFORMATION: Pneumonia. COMPARISON: CT chest dated 10/05/2022; chest radiographs dated 10/01/2022. TECHNIQUE: Frontal and lateral views of the chest were obtained. FINDINGS: The heart, great vessels, pulmonary vasculature and mediastinum are normal. There is mild to moderate residual patchy airspace disease within the right upper and lower lung gatica. The left lung now appears clear. No pleural effusion or pneumothorax is seen. There is no acute osseous abnormality. There is multi-level thoracic spondylosis. XR/XR chest 2V IMPRESSION: Mild to moderate residual patchy airspace disease is noted within the right upper and lower lung gatica. Recommend continued radiographic follow-up to clearance.
== END 2022-11-05 13:59 | disposition home or self-care (01) ==
LOC: HO.XRAY 13:58
PROVIDERS: PCP Internal Medicine; Visit Provider Internal Medicine
DX: J18.9 Pneumonia, unspecified organism (principal); J98.4 Other disorders of lung; R78.81 Bacteremia; B95.62 Methicillin resistant Staphylococcus aureus infection as the cause of diseases classified elsewhere; Z79.899 Other long term (current) drug therapy
CPT/HCPCS: 71046; 87040; 99212

== ENCOUNTER 2022-11-29 12:28 | Outpatient (REF) | payer OTHER, SELFPAY ==
--- NOTE | ~2022-11-29 | CT_ITS ---
EXAMINATION: CT CHEST WITHOUT CONTRAST CLINICAL INFORMATION: Pneumonia. COMPARISON: Chest x-ray 11/09/2022. CT chest without IV contrast 10/05/2022. TECHNIQUE: Multidetector volumetric CT imaging of the chest was done. Axial MIP volume rendering provided. Sagittal and coronal reformatted images were obtained. This CT examination was performed using dose optimization techniques as appropriate, variously including the following: *Automated exposure control *Adjustment of mA and/or kV according to patient size (this includes techniques or standardized protocols for targeted exams where dose is matched to indication/reason for exam; i.e. extremities or head) *Use of iterative reconstruction technique DLP: 168 mGy-cm. 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 LUNGS: The lungs are well expanded with patchy reticular interstitial changes right upper lobe anterior segment and left upper lobe posterior segment. There is a 4 mm nodule left upper lobe axial image 183/7. No additional pulmonary nodules seen. Focal reticular nodular changes seen left lower lobe lateral segment and patchy dense opacity right lower lobe lateral segment likely infiltrate or mass or dense consolidation. The consolidation seen in right lower lobe on the previous study 10/05/2022 has significantly improved. Patchy atelectatic changes are seen in both lung bases. MEDIASTINUM: The thyroid lobes are symmetrical and normal. The central trachea and bronchi are widely patent. Heart size and the great vessels are normal caliber. Stable left suprahilar 9 mm lymph node. No additional lymph nodes seen. CORONARY ARTERY CALCIFICATION: There is moderate coronary artery calcifications involving the left and right coronary arteries. Also visualized is aortic valve calcification. PLEURA: There is no pleural effusion or thickening or calcification. AXILLA: No abnormal axillary lymph nodes seen. The chest wall is unremarkable. UPPER ABDOMEN: Visualized liver, spleen, pancreas and bilateral adrenal glands are unremarkable. There are no radiopaque gallstones. OSSEOUS STRUCTURES: Bone windows reveal moderate spondylosis dorsal spine. No aggressive lytic or sclerotic process seen. CT/CT chest wo IV con IMPRESSION: Significant improvement in the right lower lobe consolidation. There is now ill-defined parenchymal mass right lower lobe. There is reticular interstitial changes in both upper lobes slightly more in the right upper lobe and left lower lobe lateral segment. 9 mm left suprahilar lymph node, stable. No new nodes seen. Fleischner guidelines were followed.
== END 2022-11-29 12:29 | disposition home or self-care (01) ==
LOC: HO.CT 12:28
PROVIDERS: PCP Internal Medicine; Visit Provider Hospitalist
DX: J18.9 Pneumonia, unspecified organism (principal); J98.4 Other disorders of lung
CPT/HCPCS: 71250

== ENCOUNTER 2022-12-08 07:25 | Outpatient (REF) | payer OTHER, SELFPAY ==
[2022-12-08 07:29] LABS: MANUAL DIFF FLAG NO
[2022-12-08 07:56] LABS: Basophils Absolute Auto 0.1 X10*3/uL (0.0-0.2); Basophils Percent Auto 0.6 % (0-2); Eosinophils Absolute Auto 0.4 X10*3/uL (0.0-0.4); Hematocrit 36.6 % (42.0-52.0); Hemoglobin 11.7 g/dl (14.0-18.0); Imm Gran Abs Auto 0.02 X10*3/uL (0.00-0.03); Imm Gran Pct Auto 0.3 % (0.0-0.4); Lymphocytes Absolute Auto 3.5 X10*3/uL (1.2-4.9); Lymphocytes Percent Auto 44.1 % (20-40); Mean Corpuscular Hemoglobin 27.5 pg (27.0-33.0); Mean Corpuscular Volume 85.9 fL (80.0-98.0); Mean Platelet Volume 10.9 fL (9.4-12.4); Monocytes Absolute Auto 0.9 X10*3/uL (0.1-1.2); Monocytes Percent Auto 11.8 % (2-11); Neutrophils Percent Auto 38.2 % (45-73); Platelet Count 282 X10*3/uL (160-400); Red Blood Count 4.26 X10*6/uL (4.60-5.80); Red Cell Distribution Width 14.8 % (11.0-16.0); White Blood Count 7.9 X10*3/uL (4.8-10.8)
[2022-12-08 08:22] LABS: Alanine Aminotransferase 19 U/L (0-40); Alkaline Phosphatase 99 U/L (39-117); Anion Gap 13 (12-20); Aspartate Amino Transferase 19 U/L (5-37); Bilirubin Total 0.4 mg/dL (0.0-1.0); Blood Urea Nitrogen 14 mg/dL (9-16); Calcium 9.4 mg/dL (8.4-10.2); Carbon Dioxide 27 mmol/L (22-29); Chloride 107 mmol/L (96-108); Cholesterol 159 mg/dL; Estimated Glomerular Filt Rate 55; Glucose Fasting 84 mg/dL (60-99); HDL Cholesterol 46 mg/dL; Iron 78 mcg/dL (45-160); LDL Cholesterol Calculated 87 mg/dl; Percent Iron Saturation 32 % (15-50); Potassium 4.3 mmol/L (3.3-5.1); Sodium 143 mmol/L (135-145); Total Iron Binding Capacity 246 mcg/dL (228-428); Total Protein 6.6 g/dL (6.5-8.0); Triglycerides 134 mg/dL; Unsaturated Iron Binding 168 ug/dL
[2022-12-08 08:36] LABS: Vitamin D 25-OH Total 25.1 ng/mL (>30)
[2022-12-08 10:07] LABS: Creatinine Urine 216.12 mg/dL; Microalbum/Creatinine Ratio Ur 69.4 ug/mg cr
== END 2022-12-08 07:26 | disposition home or self-care (01) ==
LOC: HO.LAB 07:25
PROVIDERS: PCP Internal Medicine; Visit Provider Internal Medicine
DX: E11.9 Type 2 diabetes mellitus without complications (principal); D64.9 Anemia, unspecified; E78.5 Hyperlipidemia, unspecified; E55.9 Vitamin D deficiency, unspecified; I10 Essential (primary) hypertension
CPT/HCPCS: 36415; 80053; 80061; 82043; 82306; 83540; 85025

== ENCOUNTER → 2022-12-10 10:20 | Outpatient (BNVA) | payer OTHER, SELFPAY | PROVIDERS: PCP Internal Medicine; Visit Provider Hospitalist | DX: J18.9 Pneumonia, unspecified organism (principal); J98.4 Other disorders of lung; R78.81 Bacteremia; B95.62 Methicillin resistant Staphylococcus aureus infection as the cause of diseases classified elsewhere; R91.1 Solitary pulmonary nodule | CPT/HCPCS: 99212 ==

== ENCOUNTER 2023-01-12 07:16 | Day surgery (SDC) | payer OTHER, SELFPAY ==
[2023-01-06 13:55] VITALS: BMI 28.3
--- NOTE | 2023-01-11 13:04 | HO.ANESPROP2 ---
Documented by User: Sally Pate NP 01/11/23 13:08 HPI - Anesthesia Eval Consult details Narrative: 72yo M for Colonoscopy Cavitary pna with 4 weeks vanco 10/2022 [facility] Active Problems Active Problems: All Active Problems (Updated 12/13/22 @ 12:04 by Rose Mary Mcneill MD) CKD (chronic kidney disease) stage 3, GFR 30-59 ml/min (Acute) Essential hypertension (Acute) Diabetes mellitus (Acute) Pulmonary nodule (Acute) Cavitary pneumonia (Acute) MRSA bacteremia (Acute) Pneumonia (Acute) Pre-op examination (Acute) Hospital discharge follow-up (Acute) DAX (generalized anxiety disorder) (Acute) Tubular adenoma (Acute) Hypovitaminosis D (Acute) Former smoker (Acute) Hyperparathyroidism (Acute) Annual physical exam (Acute) CAD (coronary artery disease) (Acute) Former smoker (Acute) Obese (Acute) Microalbuminuria (Acute) 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 (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) Pure hypercholesterolemia (Acute) Past Medical History Medical History (Updated 01/12/23 @ 07:55 by Lianne Escalera, HAILEE) Annual physical exam Arthritis CAD (coronary artery disease) Cavitary pneumonia CKD (chronic kidney disease) stage 3, GFR 30-59 ml/min Diabetes mellitus Essential hypertension Former smoker Former smoker Hyperparathyroidism Hypovitaminosis D 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 Son No problems noted. Son No problems noted. Son No problems noted. Surgical History Surgical History H/O colonoscopy History of lipoma Social History Social History Household Members: Spouse Housing: Apartment Do you presently have visiting nurse or other home services: Yes Alcohol intake: current Alcohol intake frequency: holidays/special occasions only Patient Tobacco Use Status: Former Tobacco user Quit Date: >35 yrs ago Tobacco use type: Cigarette e-Cigarette/Vaping Use: Never Used Second Hand Smoke Exposure: No Use of substances other than those prescribed or required for medical reasons: No Are you DNR?: No Advance Directives: Yes Advance Directives on File: Yes Advance Directives Date on File: 07/30/20 service: No Current occupational status: retired Cognitive needs: No Hearing needs: No Vision needs: No Meds Allergies Allergy/AdvReac Type Severity Reaction Status Date / Time gabapentin Allergy Mild Itching Verified 01/12/23 07:28 Home Medications Medication Instructions Recorded Confirmed Last Taken Type insulin glargine U-300 conc 300 56 unit subcut BEDTIME 10/01/22 01/12/23 09/30/22 History unit/mL (3 mL) subcutaneous pen (Toujeo Max U-300 SoloStar) nebulizers 10/28/22 01/12/23 Unknown History Exam Exam Date and Time: January 11, 2023 1304 Height,Weight and Vital Signs: Height 5 ft 5 in Weight 77.111 kg Pertinent Lab Results Pertinent Lab Results: Laboratory Tests 12/08/22 12/08/22 07:28 07:28 WBC 7.9 Hgb 11.7 L Hct 36.6 L Plt Count 282 Sodium 143 Potassium 4.3 Chloride 107 Carbon Dioxide 27 BUN 14 Creatinine 1.28 Narrative Narrative: EKG Vent. Rate : 101 BPM ? ? Atrial Rate : 101 BPM ?? P-R Int : 132 ms? QRS Dur : 080 ms ? ? QT Int : 282 ms ? ? ? P-R-T Axes : 044 020 065 degrees ?? QTc Int : 365 ms ? Sinus tachycardia with occasional Premature ventricular complexes Possible Inferior infarct (cited on or before 27-SEP-2022) Abnormal ECG When compared with ECG of 27-SEP-2022 22:48, Premature ventricular complexes are now Present ECHO 09/2022 Conclusions: - The left ventricular systolic function is normal.? The ? calculated ejection fraction is 68% by biplane method. ? - No obvious valvular pathology seen on this study.? Findings Left Ventricle Normal left ventricular cavity size.? The left ventricular systolic function is normal.? The calculated ejection fraction is 68% by biplane method.? There is no evidence of regional wall motion abnormalities.? Diastolic function is normal for age.? There is mild septal asymmetric hypertrophy. Assessment and Plan Assessment Anesthesia Assessment: Chart Reviewed Documented by User: Tod Narayanan MD 01/12/23 09:16 HPI - Anesthesia Eval Consult details Narrative: 72yo M for Colonoscopy CAD s/p angioplasty in 1999 functional status greater that 4 mets Denies Chest pain or SOB Cavitary pna with 4 weeks vanco 10/2022 [facility] Past Medical History Medical History (Updated 01/12/23 @ 07:55 by Lianne Escalera, RN) Annual physical exam Arthritis CAD (coronary artery disease) Cavitary pneumonia CKD (chronic kidney disease) stage 3, GFR 30-59 ml/min Diabetes mellitus Essential hypertension Former smoker Former smoker Hyperparathyroidism Hypovitaminosis D 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 Son No problems noted. Son No problems noted. Son No problems noted. Family history of problems with anesthesia: No Surgical History Surgical History H/O colonoscopy History of lipoma History of Problems with Anesthesia: No Social History Social History Household Members: Spouse Housing: Apartment Do you presently have visiting nurse or other home services: Yes Alcohol intake: current Alcohol intake frequency: holidays/special occasions only Patient Tobacco Use Status: Former Tobacco user Quit Date: >35 yrs ago Tobacco use type: Cigarette e-Cigarette/Vaping Use: Never Used Second Hand Smoke Exposure: No Use of substances other than those prescribed or required for medical reasons: No Are you DNR?: No Advance Directives: Yes Advance Directives on File: Yes Advance Directives Date on File: 07/30/20 service: No Current occupational status: retired Cognitive needs: No Hearing needs: No Vision needs: No Meds Allergies Allergy/AdvReac Type Severity Reaction Status Date / Time gabapentin Allergy Mild Itching Verified 01/12/23 07:28 Home Medications Medication Instructions Recorded Confirmed Last Taken Type insulin glargine U-300 conc 300 56 unit subcut BEDTIME 10/01/22 01/12/23 09/30/22 History unit/mL (3 mL) subcutaneous pen (Toujeo Max U-300 SoloStar) nebulizers 10/28/22 01/12/23 Unknown History Exam Airway Mallampati Class: III TM Dist: >3cm Neck ROM: Full Loose/Missing/Broken Teeth: Yes Heart: S1,S2 Lungs: b/l breath sounds Assessment and Plan Assessment Anesthesia Assessment: Anesthesia Plan Discussed Final Anesthetic Review Family History of Problems with Anesthesia: No History of Problems with Anesthesia: No NPO: Yes ASA Class: III Final Preanesthetic Review: Meds/Allgs Chart Reviewed, Consent Obtained/Reviewed and Anes Risks/Benef Reviewed Patient Risk: Intermediate Procedure Risk: Intermediate Anesthetic Plan Anesthetic Plan: MAC: Disposition: Standard PACU
[2023-01-12 07:32] VITALS: BMI 28.6
[2023-01-12 07:55] LABS: Glucose, Whole Blood 304 mg/dL (60-115)
[2023-01-12 07:57] VITALS: BP 144/69; PULSE 61; RESP 16; TEMP 36.2; O2SAT 99
[2023-01-12] MEDS: Lactated Ringers 1,000 ML 100 ML IVCONT (07:59)
--- NOTE | 2023-01-12 08:44 | P.HPSUR_ITS ---
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 Microalbuminuria Moderate asthma MRSA bacter) History of Previous Operations: Relevant previous surgery/procedure and date(s) (colonoscopy, lipoma removal) Allergies: Allergies Allergy/AdvReac Type Severity Reaction Status Date / Time gabapentin Allergy Mild Itching Verified 01/12/23 07:28 Review of Systems Sugical H&P ROS: Negative: Constitution, Cardiovascular, Respiratory, Neurological, Psychiatric, Hem-Onc, Allergic/Immunologic, Gastrointestinal, Genitourinary, Musculoskeletal, Integumentary, Endocrine and Eyes/E ars/Nose/Throat Exam Surgical H&P Exam: Normal: HEENT, Normal: Heart, Normal: Lungs, Normal: Extremities, Normal: Abdomen, Normal: Skin and Normal: Neurological Plan Diagnosis/Plan: Unchanged I have reviewed the history and physical and performed a pertinent physical examination on my patient. No changes have occurred unless specified. Time Spent With Patient Time: Total time managing care of this patient today ____ minutes.
--- NOTE | 2023-01-12 08:51 | W.PM.OPN ---
Operative Note Operative Note Date of Service: 01/12/23 Narrative: Operative Information Procedure Description: Colonoscopy Indication: screening Anesthesia: MAC COLONOSCOPY Instrument: Olympus variable stiffness pediatric scope 190L Colonoscopy Monitoring: Vital signs and clinical assessment, continuous EKG monitoring, Pulse oximetry, Carbon Dioxide monitoring and blood pressure monitoring were done throughout the procedure. Colon withdrawal time was 6 minutes. Procedure: The patient was placed in the left lateral decubitis position and pre-procedure medications were administered. After a digital rectal examination of the ano-rectum, the video colonoscope was inserted into the rectum and advanced through the colon to the cecum/TI. The colonoscope was slowly withdrawn in a retrograde panoramic fashion and the colon mucosa was carefully examined including a retroflexed view of the rectum. Findings and interventions are described below. Procedure Difficulty: easy Findings: Terminal Ileum-normal Cecum:normal Ascending Colon: normal Transverse Colon -normal Descending Colon:normal Sigmoid Colon: normal Rectum: Retroflexion with small internal hemorrhoids, grade I Anorectum - normal Colon preparation: [place] Bowel Preparation Scale Right colon; 3 Transverse colon: 3 Left colon; 3 (0 = Unprepared colon segment with mucosa not seen due to solid stool that cannot be cleared. 1 = Portion of mucosa of the colon segment seen, but other areas of the colon segment not well seen due to staining, residual stool and/or opaque liquid. 2 = Minor amount of residual staining, small fragments of stool and/or opaque liquid, but mucosa of colon segment seen well. 3 = Entire mucosa of colon segment seen well with no residual staining, small fragments of stool or opaque liquid) Impression and Post Procedure Diagnosis: internal hemorrhoids Plan: High fiber diet leaflet Avoid straining at stool, epsom salts and sitz bath, anusol supps or cream Repeat Colonoscopy in 10 years if health allows and if patient wishes or earlier if clinically indicated Above findings were reviewed with the patient and relevant handouts were provided if indicated.
[2023-01-12 09:19] VITALS: BP 92/57; PULSE 65; RESP 14; TEMP 36.1; O2SAT 98
[2023-01-12 09:34] VITALS: BP 126/74; PULSE 61; RESP 16; O2SAT 100
[2023-01-12 09:38] LABS: Glucose, Whole Blood 203 mg/dL (60-115)
[2023-01-12 09:49] VITALS: BP 140/72; PULSE 61; RESP 18; TEMP 36.3; O2SAT 100
== END 2023-01-12 10:19 | disposition home or self-care (01) ==
PROVIDERS: PCP Internal Medicine; Visit Provider Internal Medicine Gastroenterology
PROC: 0DJD8ZZ Inspection of Lower Intestinal Tract, Via Natural or Artificial Opening Endoscopic (ICD-10-PCS; CPT 45378; principal; 2023-01-12 08:30)
DX: Z12.11 Encounter for screening for malignant neoplasm of colon (principal); Z86.010 Personal history of colon polyps; K64.0 First degree hemorrhoids; R12 Heartburn; I25.10 Atherosclerotic heart disease of native coronary artery without angina pectoris; Z95.5 Presence of coronary angioplasty implant and graft; I25.2 Old myocardial infarction; J45.909 Unspecified asthma, uncomplicated; E78.00 Pure hypercholesterolemia, unspecified; E11.22 Type 2 diabetes mellitus with diabetic chronic kidney disease; I12.9 Hypertensive chronic kidney disease with stage 1 through stage 4 chronic kidney disease, or unspecified chronic kidney disease; N18.31 Chronic kidney disease, stage 3a; N25.81 Secondary hyperparathyroidism of renal origin; E66.9 Obesity, unspecified; Z68.30 Body mass index [BMI] 30.0-30.9, adult; Z79.84 Long term (current) use of oral hypoglycemic drugs; Z79.51 Long term (current) use of inhaled steroids; Z79.899 Other long term (current) drug therapy; Z88.8 Allergy status to other drugs, medicaments and biological substances; Z87.891 Personal history of nicotine dependence
CPT/HCPCS: G0105; 82947

== ENCOUNTER → 2023-01-28 09:14 | Outpatient (BNVA) | payer OTHER, SELFPAY | PROVIDERS: PCP Internal Medicine; Visit Provider Internal Medicine Gastroenterology | DX: D64.89 Other specified anemias (principal); I12.9 Hypertensive chronic kidney disease with stage 1 through stage 4 chronic kidney disease, or unspecified chronic kidney disease; E11.22 Type 2 diabetes mellitus with diabetic chronic kidney disease; N18.30 Chronic kidney disease, stage 3 unspecified | CPT/HCPCS: 99212 ==

== ENCOUNTER 2023-02-24 10:23 | Emergency (ER) | payer OTHER, SELFPAY ==
--- NOTE | ~2023-02-24 | XR_ITS ---
EXAMINATION: XR CERVICAL SPINE CLINICAL INFORMATION: Neck pain. COMPARISON: None available. TECHNIQUE: 3 views of the cervical spine were obtained. FINDINGS: There is straightening of the normal cervical lordosis. Mild to moderate multilevel degenerative changes are seen in the cervical spine including disc space narrowing and multilevel marginal osteophyte formation. Mild to moderate multilevel facet arthropathy is seen. The vertebral bodies and odontoid processes are intact. The spinous processes are intact. The cervical soft tissues are unremarkable. XR/XR cervical spine 2V IMPRESSION: 1. Straightening of the normal cervical lordosis may be secondary to positioning and/or muscle spasm. 2. Mild to moderate multilevel degenerative changes.
[2023-02-24 11:05] VITALS: BP 156/69; PULSE 57; RESP 16; TEMP 36.5; O2SAT 100; BMI 28.8
--- NOTE | 2023-02-24 11:08 | ED_ITS ---
HPI - General Adult General Chief complaint: Neck Pain/Injury <GENE Weber Last Filed: 02/24/23 13:11> Stated complaint: neck pain <GENE Weber Last Filed: 02/24/23 13:11> Time Seen by Provider: 02/24/23 11:09 <GENE Weber Last Filed: 02/24/23 13:11> Source: patient <GENE Weber Last Filed: 02/24/23 13:11> Mode of arrival: ambulatory <GENE Weber Last Filed: 02/24/23 13:11> Limitations: no limitations <GENE Weber Last Filed: 02/24/23 13:11> History of Present Illness HPI narrative: Patient is a 72 year old assigned male at with a history of CKD presenting to the emergency department today with neck pain. Patient states that he had neck pain for the last 4 days. Patient denies any dizziness, lightheadedness, abdominal pain, nausea, vomiting, fever, chills, blurry vision, double vision, loss of vision, chest pain, difficulty breathing, shortness of breath, back pain, night sweats, pain with urination, increased urinary frequency, increased urinary urgency, blood in his urine or stool, syncope or a near syncopal episode, recent trauma or falls, bowel incontinence, bladder incontinence, bowel retention, bladder retention, or any other complaints at this time. <GENE Weber - Last Filed: 02/24/23 13:11> Onset (ago): day(s) (4) <GENE Weber - Last Filed: 02/24/23 13:11> Location: neck <GENE Weber Last Filed: 02/24/23 13:11> Radiation: non-radiation <GENE Weber Last Filed: 02/24/23 13:11> Severity: mild <GENE Weber Last Filed: 02/24/23 13:11> Severity scale (1-10): 3 <GENE Weber Last Filed: 02/24/23 13:11> Quality: aching and dull <GENE Weber Last Filed: 02/24/23 13:11> Pain Consistency: constant <GENE Weber - Last Filed: 02/24/23 13:11> Relieving factors: none <GENE Weber - Last Filed: 02/24/23 13:11> Exacerbating factors: movement <GENE Weber - Last Filed: 02/24/23 13:11> Associated symptoms: denies other symptoms <GENE Weber - Last Filed: 02/24/23 13:11> Treatments prior to arrival: none <GENE Weber - Last Filed: 02/24/23 13:11> Related Data Home medications: Home Medications Medication Instructions Recorded Confirmed insulin glargine U-300 conc 300 56 unit subcut BEDTIME 10/01/22 01/12/23 unit/mL (3 mL) subcutaneous pen (Toujeo Max U-300 SoloStar) nebulizers 10/28/22 01/12/23 Previous Rx's Medication Instructions Recorded blood sugar diagnostic (FreeStyle #50 ea 12/15/21 Lite Strips) blood-glucose meter (FreeStyle #1 ea 12/15/21 Lite Meter kit) lancets 28 gauge (FreeStyle #100 ea 12/15/21 Lancets) metformin 500 mg tablet 500 mg PO BID 90 days #180 tabs 04/01/22 gabapentin 100 mg capsule 200 mg PO BEDTIME 90 days #180 caps 04/29/22 glipizide 10 mg tablet 10 mg PO QAM 90 days #90 tabs 09/12/22 albuterol sulfate 2.5 mg/3 mL 2.5 mg (3 mL) inhalation Q4-6H PRN 09/28/22 (0.083 %) solution for nebulization shortness of breath or wheezing #90 mL albuterol sulfate 90 mcg/actuation 1 inh inhalation QID PRN shortness 09/28/22 aerosol inhaler of breath or wheezing #8.5 grams losartan 100 mg tablet 100 mg PO DAILY 90 days #90 tabs 10/26/22 cholecalciferol (vitamin D3) 25 25 mcg PO DAILY 90 days #90 caps 11/20/22 mcg (1,000 unit) capsule amlodipine 10 mg tablet 10 mg PO DAILY 90 days #90 tabs 12/13/22 atorvastatin 80 mg tablet 80 mg PO BEDTIME 90 days #90 tabs 12/13/22 metoprolol succinate 100 mg 100 mg PO DAILY #90 tabs 12/16/22 tablet,extended release 24 hr fluticasone propionate 110 1 puff PO BID 30 days #12 ea 02/22/23 mcg/actuation HFA aerosol inhaler (Flovent HFA) cyclobenzaprine 5 mg tablet 5 mg PO TID PRN muscle spasm 7 02/24/23 days #21 tabs <GENE Weber Last Filed: 02/24/23 13:11> Allergies/adverse reactions: Allergies Allergy/AdvReac Type Severity Reaction Status Date / Time gabapentin Allergy Mild Itching Verified 02/24/23 11:05 <GENE Weber Last Filed: 02/24/23 13:11> Review of Systems Constitutional: Constitutional: Reports no additional constitutional compla ints, Denies chills, Denies fever(s) and Denies night sweats <GENE Weber Last Filed: 02/24/23 13:11> Eyes: Eyes: Reports no additional eye complaints, Denies blurry vision, Denies change in vision, Denies diplopia, Denies eye discharge, Denies loss of vision and Denies eye pain <GENE Weber Last Filed: 02/24/23 13:11> ENT: Denies dizziness and Reports neck pain <GENE Weber Last Filed: 02/24/23 13:11> Cardiovascular: Cardiovascular: Reports no additional cardiovascular complaints, Denies chest pain, Denies lightheadedness, Denies Loss of Con sciousness and Denies dyspnea <GENE Weber Last Filed: 02/24/23 13:11> Respiratory: Respiratory: Reports no additional respiratory complaints and Denies dyspnea <GENE Weber Last Filed: 02/24/23 13:11> Gastrointestinal: Gastrointestinal: Reports no additional gastrointestinal complaints, Denies abdominal pain, Denies melena, Denies hematochezia, Denies change in bowel habits and Denies change in stool character <GENE Weber Last Filed: 02/24/23 13:11> Genitourinary: Genitourinary: Reports no additional male genitourinary complaints, Denies hematuria, Denies oliguria, Denies difficulty urinating, Denies dysuria, Denies urinary frequency, Denies urinary hesitancy, Denies urinary incontinence and Denies urinary urgency <GENE Weber - Last Filed: 02/24/23 13:11> Musculoskeletal: Musculoskeletal: Reports no additional musculoskeletal complaints, Reports neck pain, Denies numbness and Denies tingling <GENE Weber - Last Filed: 02/24/23 13:11> Neurologic: Denies dizziness, Denies loss of vision, Denies numbness and Denies tingling <GENE Weber - Last Filed: 02/24/23 13:11> Psychiatric: Psychiatric: Reports no additional psychiatric complaints <GENE Weber - Last Filed: 02/24/23 13:11> Endocrine: Endocrine: Reports no additional endocrine complaints <GENE Weber - Last Filed: 02/24/23 13:11> Hematologic/Lymphatic: Hematologic/Lymphatic: Reports no additional hematologic/lymphatic complaints <GENE Weber - Last Filed: 02/24/23 13:11> Allergic/Immunologic: Allergic/Immunologic: Reports no additional allergic/immunologic complaints <GENE Weber - Last Filed: 02/24/23 13:11> PMFSH Past Medical History Attestation statement: The following information was validated with the patient. 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 Son No problems noted. Son No problems noted. Son No problems noted. <GENE Weber - Last Filed: 02/24/23 13:11> Social History Social History: Social History Household Members: Spouse Housing: Apartment Do you presently have visiting nurse or other home services: Yes Alcohol intake: current Alcohol intake frequency: holidays/special occasions only Patient Tobacco Use Status: Former Tobacco user Quit Date: >35 yrs ago Tobacco use type: Cigarette e-Cigarette/Vaping Use: Never Used Second Hand Smoke Exposure: No Advance Directives: Yes Advance Directives on File: Yes Advance Directives Date on File: 07/30/20 service: No Current occupational status: retired Cognitive needs: No Hearing needs: No Vision needs: No <GENE Weber - Last Filed: 02/24/23 13:11> Physical Exam ED Vital Signs: Vital Signs - 24 hr 02/24/23 11:05 Temperature 97.7 F Pulse Rate 57 Respiratory Rate 16 Blood Pressure 156/69 H Pulse Oximetry 100 Oxygen Delivery Method Room Air BMI result Body Mass Index 28.8 <GENE Weber - Last Filed: 02/24/23 13:11> Vital Signs - 24 hr 02/24/23 11:05 Temperature 97.7 F Pulse Rate 57 Respiratory Rate 16 Blood Pressure 156/69 H Pulse Oximetry 100 Oxygen Delivery Method Room Air BMI result Body Mass Index 28.8 <GENE Acuña - Last Filed: 02/24/23 11:10> Const General: cooperative, no acute distress, alert and awake <GENE Weber - Last Filed: 02/24/23 13:11> Nutritional Appearance: well nourished <GENE Weber - Last Filed: 02/24/23 13:11> Orientation/consciousness: patient oriented x3 <GENE Weber - Last Filed: 02/24/23 13:11> Limitations: no limitations <GENE Weber - Last Filed: 02/24/23 13:11> HENNM Head: Yes normal to inspection and Yes atraumatic <Rosio Acevedocarlos PA - Last Filed: 02/24/23 13:11> Ears: hearing grossly normal bilaterally and external ears normal <Rosio Acevedocarlos PA - Last Filed: 02/24/23 13:11> General nose exam: Normal external nose present, no nasal discharge noted and no epistaxis <Rosiopaulo Acevedocarlos PA - Last Filed: 02/24/23 13:11> Face and sinus: Yes normal facial exam, No abrasion and No laceration <Rosiopaulo Acevedocarlos PA - Last Filed: 02/24/23 13:11> Mouth: Normal oral and palatal mucosa present, no drooling and no muffled voice <Rosio Walden MT - Last Filed: 02/24/23 13:11> Eyes General: appearance normal, both eyes and all related structures <Rosio Walden, [place] - Last Filed: 02/24/23 13:11> Periorbital: periorbital findings normal <Rosio Walden MT - Last Filed: 02/24/23 13:11> Eyelids: Yes eyelids normal <Rosio Acevedocarlos PA - Last Filed: 02/24/23 13:11> Conjunctivae: conjunctivae normal <Rosio Walden, [place] - Last Filed: 02/24/23 13:11> Pupils: Equal, round and reactive pupils present <Rosio Acevedocarlso PA - Last Filed: 02/24/23 13:11> EOM: EOMs intact bilaterally <Rosio Walden MT - Last Filed: 02/24/23 13:11> Neck Neck: Yes normal visual inspection, Yes full ROM and Yes no lymphadenopathy <Rosio Iram PA - Last Filed: 02/24/23 13:11> Chest Chest palpation & inspection: normal inspection of the chest <Rosio Walden PA - Last Filed: 02/24/23 13:11> Resp Effort & Inspection: normal respiratory effort and able to speak in complete sentences <Rosio Walden PA - Last Filed: 02/24/23 13:11> Auscultation: clear to auscultation bilaterally <GENE Weber - Last Filed: 02/24/23 13:11> Cardio Rate: regular rate <Rosio Walden PA - Last Filed: 02/24/23 13:11> Rhythm: regular rhythm <Rosio Walden PA - Last Filed: 02/24/23 13:11> GI Inspection: Yes normal to inspection <Rosio Walden PA - Last Filed: 02/24/23 13:11> Palpation (GI): Soft to palpation, not firm, nontender, no guarding and not rigid <Rosio Walden PA - Last Filed: 02/24/23 13:11> Neuro General: patient oriented x3 and moves all extremities <Rosio Walden PA - Last Filed: 02/24/23 13:11> Cranial nerves: Yes Equal, round and reactive pupils present <Rosio Walden PA - Last Filed: 02/24/23 13:11> Cognition (Neuro): normal cognition <Rosio Walden PA - Last Filed: 02/24/23 13:11> Motor exam (neuro): 5/5 motor strength present throughout <Rosio Walden PA - Last Filed: 02/24/23 13:11> Sensory Exam: Normal double simultaneous stimulation for sensation <Rosio Walden PA - Last Filed: 02/24/23 13:11> Coordination: [id number] test normal <Rosio Walden PA - Last Filed: 02/24/23 13:11> Extrem General: Yes normal to inspection, Yes full ROM and Yes capillary refill normal <Roiso Walden PA - Last Filed: 02/24/23 13:11> Psych Appearance: grossly normal <Rosio Walden PA - Last Filed: 02/24/23 13:11> Mental Status: mental status grossly normal <Rosio Walden PA - Last Filed: 02/24/23 13:11> Affect: normal affect <Rosio Walden PA - Last Filed: 02/24/23 13:11> Attitude: cooperative <Rosio Acevedocarlos PA - Last Filed: 02/24/23 13:11> Thought process: Normal thought process present <Rosio AcevedoGENE gonzalez - Last Filed: 02/24/23 13:11> Thought content: Normal thought content present <Rosio AcevedoGENE gonzalez - Last Filed: 02/24/23 13:11> Insight: Good insight present (Psych) <GENE Weber - Last Filed: 02/24/23 13:11> Course Course Course Narrative: This is an RME: Additional HPI, ROS, PE not included below will be deferred to primary provider. 72 year old male presents with atraumatic neck pain since Tuesday, not improving despite taking [id number] medications, this morning to naproxen with little to no relief. Rates a 5/10. No visual disturbances or headache at this time. No blunt trauma. No fevers or chills. Exam benign. Patient well-appearing Plan patient will go to Emergency minor care ordered oxycodone and Lidoderm. <GENE Acuña - Last Filed: 02/24/23 11:10> Medications Administered Discontinued Medications Generic Name Dose Route Start Last Admin Trade Name Freq PRN Reason Stop Dose Admin Cyclobenzaprine HCl 5 mg 02/24/23 11:10 02/24/23 11:32 Cyclobenzaprine Hcl 5 Mg Tablet PO 02/24/23 11:11 5 mg ONCE ONE Administration Lidocaine 1 patch 02/24/23 11:08 02/24/23 11:32 Lidocaine 4 % Patch Adh..Patch TRANSDERMA 02/24/23 11:09 1 patch ONCE ONE Administration Protocol <GENE Weber - Last Filed: 02/24/23 13:11> Medications Administered Discontinued Medications Generic Name Dose Route Start Last Admin Trade Name Freq PRN Reason Stop Dose Admin Cyclobenzaprine HCl 5 mg 02/24/23 11:10 02/24/23 11:32 Cyclobenzaprine Hcl 5 Mg Tablet PO 02/24/23 11:11 5 mg ONCE ONE Administration Lidocaine 1 patch 02/24/23 11:08 02/24/23 11:32 Lidocaine 4 % Patch Adh..Patch TRANSDERMA 02/24/23 11:09 1 patch ONCE ONE Administration Protocol <GENE Acuña - Last Filed: 02/24/23 11:10> Medical Decision Making Medical Decision Making MDM Narrative: Patient is a 72 year old assigned male at with a history of CKD presenting to the emergency department today with neck pain. Patient's physical exam was unremarkable. Patient's C-Spine x-ray showed no acute process. I explained my physical exam findings as well as all test results to the patient. I answered all questions asked by the patient. Patient received PO Flexeril and Lidocaine patch which he stated helped his symptoms significantly. I stressed the importance of the patient taking his medication as prescribed. I stressed the importance of the patient following up with his primary care provider. I stressed the importance of the patient returning to the emergency department immediately if his symptoms were to worsen or if he were to develop any dizziness, shortness of breath, difficulty breathing, chest pain, blurry vision, loss of vision, nausea, vomiting, abdominal pain, fever, chills, back pain, or any other complaints. Patient verbalized agreement and understanding with this treatment plan and discharge. <GENE Weber Last Filed: 02/24/23 13:11> Differential Diagnosis Differential Diagnoses: The differential diagnosis associated with the presentation includes <GENE Weber Last Filed: 02/24/23 13:11> neck pain, neck spasm <GENE Weber Last Filed: 02/24/23 13:11> Independent Interpretation I performed an independent interpretation of an: Plain X-Ray <GENE Weber Last Filed: 02/24/23 13:11> Interpretation: My interpretation is in agreement with the radiologist's impression of this imaging study. -------- EXAMINATION: XR CERVICAL SPINE CLINICAL INFORMATION: Neck pain. COMPARISON: None available. TECHNIQUE: 3 views of the cervical spine were obtained. FINDINGS: There is straightening of the normal cervical lordosis. Mild to moderate multilevel degenerative changes are seen in the cervical spine including disc space narrowing and multilevel marginal osteophyte formation. Mild to moderate multilevel facet arthropathy is seen. The vertebral bodies and odontoid processes are intact. The spinous processes are intact. The cervical soft tissues are unremarkable. XR/XR cervical spine 2V IMPRESSION: 1.? Straightening of the normal cervical lordosis may be secondary to positioning and/or muscle spasm. 2.? Mild to moderate multilevel degenerative changes. Dictated By: Robert Manriquez MD Signed By: Electronically signed by Robert Manriquez MD 02/24/23 1216 <GENE Weber - Last Filed: 02/24/23 13:11> Discharge Plan Discharge Clinical Impression: Muscle spasms of neck <GENE Weber - Last Filed: 02/24/23 13:11> Patient Disposition: Home, Self-Care <GENE Weber - Last Filed: 02/24/23 13:11> Instructions: Muscle Spasm (ED) <GENE Weber - Last Filed: 02/24/23 13:11> Additional Instructions: Follow up with your primary care provider and if the pain persists, a flight operations specialist. Return to the emergency department immediately if your symptoms worsen or if you develop any dizziness, shortness of breath, difficulty breathing, chest pain, blurry vision, loss of vision, nausea, vomiting, abdominal pain, fever, chills, back pain, or any other complaints. <GENE Weber - Last Filed: 02/24/23 13:11> Prescriptions: New cyclobenzaprine 5 mg tablet 5 mg PO TID PRN (Reason: muscle spasm) 7 Days Qty: 21 0RF No Action glipizide 10 mg tablet 10 mg PO QAM 90 Days Qty: 90 2RF losartan 100 mg tablet 100 mg PO DAILY 90 Days Qty: 90 1RF cholecalciferol (vitamin D3) 25 mcg (1,000 unit) capsule 25 mcg PO DAILY 90 Days Qty: 90 1RF metoprolol succinate 100 mg tablet extended release 24 hr 100 mg PO DAILY Qty: 90 3RF Flovent HFA 110 mcg/actuation HFA aerosol inhaler 1 puff PO BID 30 Days Qty: 12 11RF albuterol sulfate 90 mcg/actuation HFA aerosol inhaler 1 inh inhalation QID PRN (Reason: shortness of breath or wheezing) Qty: 8.5 0RF albuterol sulfate 2.5 mg /3 mL (0.083 %) solution for nebulization 2.5 mg inhalation Q4-6H PRN (Reason: shortness of breath or wheezing) Qty: 90 0RF Toujeo Max U-300 SoloStar 300 unit/mL (3 mL) insulin pen 56 unit subcut BEDTIME (DME) blood-glucose meter [FreeStyle Lite Meter] Kit See Rx Instructions .Route Qty: 1 0RF Rx Instructions: As directed (DME) FreeStyle Lite Strips Strip See Rx Instructions .Route Qty: 50 6RF Rx Instructions: As directed (DME) lancets [FreeStyle Lancets] 28 gauge misc See Rx Instructions .Route Qty: 100 6RF Rx Instructions: As directed gabapentin 100 mg capsule 200 mg PO BEDTIME 90 Days Qty: 180 1RF amlodipine 10 mg tablet 10 mg PO DAILY 90 Days Qty: 90 1RF atorvastatin 80 mg tablet 80 mg PO BEDTIME 90 Days Qty: 90 1RF metformin 500 mg tablet 500 mg PO BID 90 Days Qty: 180 3RF (DME) nebulizers Misc See Rx Instructions .Route Rx Instructions: As directed <GENE Weber - Last Filed: 02/24/23 13:11> Referrals: [facility] [Provider Group] (Call to establish and follow up with a flight operations specialist if your pain persists. ) Rose Mary Jones MD [Primary Care Provider] - <GENE Weber - Last Filed: 02/24/23 13:11> Discharge Date/Time: 02/24/23 12:31 <GENE Weber - Last Filed: 02/24/23 13:11> Print Language: Armenian <GENE Weber - Last Filed: 02/24/23 13:11>
[2023-02-24] MEDS: Lidocaine 4 % Patch ADH..PATCH 1 PATCH TRANSDERMA (11:32)
[2023-02-24] MEDS: Cyclobenzaprine HCl 5 MG TABLET PO (11:32)
== END 2023-02-24 12:31 | disposition home or self-care (01) ==
PROVIDERS: Emergency Provider Emergency Medicine; PCP Internal Medicine
DX: M62.838 Other muscle spasm (principal); M54.2 Cervicalgia; E11.22 Type 2 diabetes mellitus with diabetic chronic kidney disease; I12.9 Hypertensive chronic kidney disease with stage 1 through stage 4 chronic kidney disease, or unspecified chronic kidney disease; N18.30 Chronic kidney disease, stage 3 unspecified; E78.00 Pure hypercholesterolemia, unspecified; Z87.891 Personal history of nicotine dependence; Z79.4 Long term (current) use of insulin; Z79.899 Other long term (current) drug therapy; Z79.02 Long term (current) use of antithrombotics/antiplatelets
CPT/HCPCS: 72040; 99282; 99283

== ENCOUNTER 2023-02-27 19:57 | Emergency (ER) | payer OTHER, SELFPAY ==
--- NOTE | ~2023-02-27 | CT_ITS ---
EXAMINATION: CT HEAD WITHOUT CONTRAST CLINICAL INFORMATION: Blurry vision. Rule out intracranial abnormality. COMPARISON: None available. TECHNIQUE: Contiguous axial imaging was performed from the skull base to vertex without intravenous administration of contrast. Coronal and sagittal reformatted images were obtained. This CT examination was performed using dose optimization techniques as appropriate, variously including the following: *Automated exposure control *Adjustment of mA and/or kV according to patient size (this includes techniques or standardized protocols for targeted exams where dose is matched to indication/reason for exam; i.e. extremities or head) *Use of iterative reconstruction technique DLP: 667.40 mGy-cm FINDINGS: There is mild widening of the cortical sulci and associated ventriculomegaly. The lateral ventricles are symmetrical. The third and fourth ventricles are in their normal midline position. The basilar and prepontine cisterns are unremarkable. Minimal periventricular microvascular changes. There is no acute intra or extracerebral abnormality. There is no mass effect or midline shift. Sections through the bony calvarium are unremarkable. The orbits are intact. The paranasal sinuses are clear. The mastoid air cells show hypoaeration without other abnormality. CT/CT head/brain wo IV con IMPRESSION: No acute intracranial pathology.
--- NOTE | ~2023-02-27 | CT_ITS ---
EXAMINATION: CT CERVICAL SPINE WITHOUT CONTRAST CLINICAL INFORMATION: Neck pain, spasms. COMPARISON: Chest CT scan dated 11/29/2022. TECHNIQUE: Multiple axial images of the cervical spine were obtained without the administration of intravenous contrast. This CT examination was performed using dose optimization techniques as appropriate, variously including the following: *Automated exposure control *Adjustment of mA and/or kV according to patient size (this includes techniques or standardized protocols for targeted exams where dose is matched to indication/reason for exam; i.e. extremities or head) *Use of iterative reconstruction technique DLP: 341.33 mGy-cm FINDINGS: There is straightening of the normal cervical lordosis with normal spinal alignment. Mild to moderate multilevel degenerative changes are seen with mild disc space narrowing and multilevel marginal osteophyte formation most pronounced inferiorly. Minimal neural foraminal narrowing is seen on the left at C5-C6. Mild to moderate multilevel degenerative changes in the facet joints bilaterally. The spinous processes are unremarkable. Mild to moderate opacification is seen in the nuchal ligament. The transverse processes are unremarkable. The soft tissues are unremarkable. There is no lymphadenopathy. The thyroid gland is unremarkable. Multiple evaluation of the lung apices. CT/CT cervical spine wo IV con IMPRESSION: 1. Straightening of the normal cervical lordosis may be secondary to positioning and/or muscle spasm. 2. Mild to moderate multilevel degenerative changes without acute abnormality. 3. Suboptimal evaluation of the lung apices. Please refer to the report from the recent chest CT scan dated 11/29/2022.
[2023-02-27 20:10] VITALS: BP 170/56; PULSE 62; RESP 18; TEMP 36.3; O2SAT 97; BMI 29.1
--- NOTE | 2023-02-27 20:10 | ED_ITS ---
HPI - Headache General Chief Complaint: Neck Pain/Injury Stated Complaint: pain in back of head Related Data Home Medications Medication Instructions Recorded Confirmed insulin glargine U-300 conc 300 56 unit subcut BEDTIME 10/01/22 01/12/23 unit/mL (3 mL) subcutaneous pen (Toujeo Max U-300 SoloStar) nebulizers 10/28/22 01/12/23 Previous Rx's Medication Instructions Recorded blood sugar diagnostic (FreeStyle #50 ea 12/15/21 Lite Strips) blood-glucose meter (FreeStyle #1 ea 12/15/21 Lite Meter kit) lancets 28 gauge (FreeStyle #100 ea 12/15/21 Lancets) metformin 500 mg tablet 500 mg PO BID 90 days #180 tabs 04/01/22 gabapentin 100 mg capsule 200 mg PO BEDTIME 90 days #180 caps 04/29/22 glipizide 10 mg tablet 10 mg PO QAM 90 days #90 tabs 09/12/22 albuterol sulfate 2.5 mg/3 mL 2.5 mg (3 mL) inhalation Q4-6H PRN 09/28/22 (0.083 %) solution for nebulization shortness of breath or wheezing #90 mL albuterol sulfate 90 mcg/actuation 1 inh inhalation QID PRN shortness 09/28/22 aerosol inhaler of breath or wheezing #8.5 grams losartan 100 mg tablet 100 mg PO DAILY 90 days #90 tabs 10/26/22 cholecalciferol (vitamin D3) 25 25 mcg PO DAILY 90 days #90 caps 11/20/22 mcg (1,000 unit) capsule amlodipine 10 mg tablet 10 mg PO DAILY 90 days #90 tabs 12/13/22 atorvastatin 80 mg tablet 80 mg PO BEDTIME 90 days #90 tabs 12/13/22 metoprolol succinate 100 mg 100 mg PO DAILY #90 tabs 12/16/22 tablet,extended release 24 hr fluticasone propionate 110 1 puff PO BID 30 days #12 ea 02/22/23 mcg/actuation HFA aerosol inhaler (Flovent HFA) cyclobenzaprine 5 mg tablet 5 mg PO TID PRN muscle spasm 7 02/24/23 days #21 tabs Allergies Allergy/AdvReac Type Severity Reaction Status Date / Time gabapentin Allergy Mild Itching Verified 02/27/23 20:10 [facility] Past Medical History Medical History Annual physical exam Arthritis CAD (coronary artery disease) Cavitary pneumonia CKD (chronic kidney disease) stage 3, GFR 30-59 ml/min Diabetes mellitus Essential hypertension Former smoker Former smoker Hyperparathyroidism Hypovitaminosis D [facility] (current) use of insulin Microalbuminuria Moderate asthma MRSA bacteremia Myocardial infarction Obese Pulmonary nodule Pure hypercholesterolemia Surgical History H/O colonoscopy History of lipoma Family History Family History Father Diabetes Mother Diabetes Son No problems noted. Son No problems noted. Son No problems noted. Son No problems noted. Social History Social History Household Members: Spouse Housing: Apartment Do you presently have visiting nurse or other home services: Yes Alcohol intake: current Alcohol intake frequency: holidays/special occasions only Patient Tobacco Use Status: Former Tobacco user Quit Date: >35 yrs ago Tobacco use type: Cigarette e-Cigarette/Vaping Use: Never Used Second Hand Smoke Exposure: No Advance Directives: Yes Advance Directives on File: Yes Advance Directives Date on File: 07/30/20 service: No Current occupational status: retired Cognitive needs: No Hearing needs: No Vision needs: No Physical Exam Vital Signs: Vital Signs: Last Vital Signs Temp 97.4 F 02/27/23 20:10 Pulse 62 02/27/23 20:10 Resp 18 02/27/23 20:10 BP 170/56 H 02/27/23 20:10 Pulse Ox 97 02/27/23 20:10 O2 Del Method Room Air 02/27/23 20:10 BMI result Body Mass Index 29.1 Course Course Course Narrative: RME: 72 yo M w/PMHx CKD, CAD, diabetes, HTN, ME, HLD, asthma c/o worsening le ft-sided neck pain now radiating to head > left side with associated blurry vision x today. Patient was evaluated in our ED on 02/24 for similar symptoms, had x-ray suggestive of muscle spasming, been taking cyclobenzaprine without relief. Denies known injury/trauma or fall, lightheadedness/dizziness, neck manipulation, weakness + left-sided cervical paraspinal tenderness noted Head/C-spine CT ordered without contrast due to patient's CKD Full HPI, ROS and PE to be performed by primary ED provider. Discharge Plan Discharge Clinical Impression: Generalized anxiety disorder Patient Disposition: Elopement Prescriptions: No Action glipizide 10 mg tablet 10 mg PO QAM 90 Days Qty: 90 2RF losartan 100 mg tablet 100 mg PO DAILY 90 Days Qty: 90 1RF cholecalciferol (vitamin D3) 25 mcg (1,000 unit) capsule 25 mcg PO DAILY 90 Days Qty: 90 1RF metoprolol succinate 100 mg tablet extended release 24 hr 100 mg PO DAILY Qty: 90 3RF Flovent HFA 110 mcg/actuation HFA aerosol inhaler 1 puff PO BID 30 Days Qty: 12 11RF albuterol sulfate 90 mcg/actuation HFA aerosol inhaler 1 inh inhalation QID PRN (Reason: shortness of breath or wheezing) Qty: 8.5 0RF albuterol sulfate 2.5 mg /3 mL (0.083 %) solution for nebulization 2.5 mg inhalation Q4-6H PRN (Reason: shortness of breath or wheezing) Qty: 90 0RF Toujeo Max U-300 SoloStar 300 unit/mL (3 mL) insulin pen 56 unit subcut BEDTIME cyclobenzaprine 5 mg tablet 5 mg PO TID PRN (Reason: muscle spasm) 7 Days Qty: 21 0RF (DME) blood-glucose meter [FreeStyle Lite Meter] Kit See Rx Instructions .Route Qty: 1 0RF Rx Instructions: As directed (DME) FreeStyle Lite Strips Strip See Rx Instructions .Route Qty: 50 6RF Rx Instructions: As directed (DME) lancets [FreeStyle Lancets] 28 gauge misc See Rx Instructions .Route Qty: 100 6RF Rx Instructions: As directed gabapentin 100 mg capsule 200 mg PO BEDTIME 90 Days Qty: 180 1RF amlodipine 10 mg tablet 10 mg PO DAILY 90 Days Qty: 90 1RF atorvastatin 80 mg tablet 80 mg PO BEDTIME 90 Days Qty: 90 1RF metformin 500 mg tablet 500 mg PO BID 90 Days Qty: 180 3RF (DME) nebulizers Misc See Rx Instructions .Route Rx Instructions: As directed Discharge Date/Time: 02/28/23 00:03
== END 2023-02-28 00:03 | disposition left against medical advice (07) ==
PROVIDERS: Emergency Provider Emergency Medicine
DX: R51.9 Headache, unspecified (principal); M54.2 Cervicalgia; E11.9 Type 2 diabetes mellitus without complications; I25.10 Atherosclerotic heart disease of native coronary artery without angina pectoris; F41.9 Anxiety disorder, unspecified; Z79.4 Long term (current) use of insulin; Z79.899 Other long term (current) drug therapy; Z87.891 Personal history of nicotine dependence
CPT/HCPCS: 70450; 72125; 99281; 99284

== ENCOUNTER 2023-04-05 05:59 | Outpatient (REF) | payer OTHER, SELFPAY ==
[2023-04-05 08:05] LABS: Alanine Aminotransferase 21 U/L (0-40); Albumin Level 3.9 g/dL (3.5-5.0); Alkaline Phosphatase 110 U/L (39-117); Anion Gap 14 (12-20); Aspartate Amino Transferase 16 U/L (5-37); Bilirubin Total 0.4 mg/dL (0.0-1.0); Blood Urea Nitrogen 18 mg/dL (9-16); Calcium 9.2 mg/dL (8.4-10.2); Carbon Dioxide 23 mmol/L (22-29); Chloride 107 mmol/L (96-108); Cholesterol 131 mg/dL; Estimated Glomerular Filt Rate 47; Glucose Fasting 217 mg/dL (60-99); HDL Cholesterol 37 mg/dL; LDL Cholesterol Calculated 55 mg/dl; Potassium 4.3 mmol/L (3.3-5.1); Sodium 140 mmol/L (135-145); Total Protein 6.4 g/dL (6.5-8.0); Triglycerides 195 mg/dL
[2023-04-05 08:23] LABS: Vitamin D 25-OH Total 30.4 ng/mL (>30)
[2023-04-05 09:40] LABS: Creatinine Urine 118.68 mg/dL; Microalbum/Creatinine Ratio Ur 91.8 ug/mg cr
== END 2023-04-05 06:00 | disposition home or self-care (01) ==
LOC: HO.LAB 05:59
PROVIDERS: PCP Internal Medicine; Visit Provider Internal Medicine
DX: I25.10 Atherosclerotic heart disease of native coronary artery without angina pectoris (principal); E11.9 Type 2 diabetes mellitus without complications; E55.9 Vitamin D deficiency, unspecified; E78.5 Hyperlipidemia, unspecified
CPT/HCPCS: 36415; 80053; 80061; 82043; 82306

== ENCOUNTER → 2023-04-14 09:29 | Outpatient (REF) | payer OTHER, SELFPAY ==
--- NOTE | 2023-04-14 09:33 | ECG_ITS ---
Test Reason : chest pain Blood Pressure : / mmHG Vent. Rate : 060 BPM Atrial Rate : 060 BPM P-R Int : 160 ms QRS Dur : 086 ms QT Int : 392 ms P-R-T Axes : 056 015 058 degrees QTc Int : 392 ms Normal sinus rhythm Nonspecific T wave abnormality Abnormal ECG No significant changes when compared with the previous EKG of 01 oct 2022 Referred By: Rose Mary Mcneill Electronically Signed By:MARIANELA CARBAJAL
== END ==
LOC: HO.CARD 09:29
PROVIDERS: PCP Internal Medicine; Visit Provider Internal Medicine
DX: R07.9 Chest pain, unspecified (principal)
CPT/HCPCS: 93005

== ENCOUNTER 2023-06-07 06:11 | Outpatient (REF) | payer OTHER, SELFPAY ==
[2023-06-07 06:56] LABS: INTERNATIONAL NORM RATIO 0.9 (0.9-1.1); Prothrombin Time 11.2 SEC (11.1-13.3)
[2023-06-07 07:13] LABS: Alanine Aminotransferase 18 U/L (0-40); Albumin Level 4.2 g/dL (3.5-5.0); Alkaline Phosphatase 116 U/L (39-117); Anion Gap 11 (12-20); Aspartate Amino Transferase 16 U/L (5-37); Bilirubin Total 0.4 mg/dL (0.0-1.0); Blood Urea Nitrogen 11 mg/dL (9-16); Calcium 9.9 mg/dL (8.4-10.2); Carbon Dioxide 29 mmol/L (22-29); Chloride 107 mmol/L (96-108); Estimated Glomerular Filt Rate 42; Glucose Fasting 94 mg/dL (60-99); Sodium 143 mmol/L (135-145); Total Protein 7.2 g/dL (6.5-8.0)
[2023-06-07 07:29] LABS: HBS Num1 0.75 mIU/mL (0-7.99); HBc Num1 0.04 S/CO (0.00-0.79); HBsAGNum1 0.36 S/CO (0.00-0.99); Hepatitis A Antibody IgM 0.47 Index (0-0.79); Hepatitis B Core Antibody Nonreactive (Nonreactive); Hepatitis B Surface Antigen Negative (Negative); ~HepC Num1 0.04 S/CO (0.00-0.79); ~Hepatitis A Antibody IgM Nonreactive (Nonreactive); ~Hepatitis B Surface Antibody NONREACTIVE (Nonreactive); ~Hepatitis C Antibody Nonreactive (Nonreactive)
[2023-06-07 07:30] LABS: Ferritin 73 ng/mL (20-250)
[2023-06-07 07:42] LABS: Folate 8.9 ng/mL (> or = 4.0); Vitamin B12 319 pg/mL (200-900)
[2023-06-09 13:34] LABS: Transglutaminase Ab IgG <1.0 U/mL; Transglutaminase IgA <1.0 U/mL
[2023-06-10 13:29] LABS: Zinc 98 mcg/dL (60-130)
[2023-06-10 17:53] LABS: Hematocrit 38.9 % (38.5-50.0); Hemoglobin 13.1 g/dL (13.2-17.1); MCH 28.4 pg (27.0-33.0); MCV 84.2 fL (80.0-100.0); RBC 4.62 Million/uL (4.20-5.80); RDW 14.4 % (11.0-15.0)
[2023-06-11 14:28] LABS: Vitamin B6 5.1 ng/mL (2.1-21.7)
[2023-06-11 17:49] LABS: Vitamin K1 314 pg/mL (130-1500)
[2023-06-12 12:53] LABS: Vitamin B1 13 nmol/L (8-30)
[2023-06-13 18:23] LABS: Vitamin A 54 mcg/dL (38-98)
[2023-06-14 01:57] LABS: Alpha-Tocopherol 10.6 mg/L (5.7-19.9)
[2023-06-14 12:34] LABS: Vitamin C 0.9 mg/dL (0.2-2.1)
[2023-06-14 22:09] LABS: Vitamin B5 (Pantothenic Acid) <40 ng/mL (<275)
[2023-06-16 18:29] LABS: Nicotinamide 23 ng/mL; Vit B3 - Nicotinic Acid <20 ng/mL
== END 2023-06-07 06:12 | disposition home or self-care (01) ==
LOC: HO.LAB 06:11
PROVIDERS: PCP Internal Medicine; Visit Provider Internal Medicine Gastroenterology
DX: R10.33 Periumbilical pain (principal); G89.29 Other chronic pain; N18.31 Chronic kidney disease, stage 3a; D64.9 Anemia, unspecified
CPT/HCPCS: 36415; 80053; 82180; 82607; 82728; 82746; 83020; 84207; 84425; 84446; 84590; 84591; 84597; 84630; 85014; 85018; 85041; 85610; 86364; 86704; 86706; 86709; 86803; 87340

== ENCOUNTER 2023-06-10 09:48 | Outpatient (AMB) | payer OTHER, SELFPAY ==
--- NOTE | 2023-06-10 09:52 | MHC.OFFVIS ---
Intake Vital Signs 06/10/23 09:56 Height 5 ft 5 in Weight 175 lb BMI 29.1 BP 145/95 H Blood Pressure Location Lt brachial Position Sitting Pulse 76 Intake Visit Reasons: 4 month follow up Intake Note: Patient follow up for lab results. Patient cc: diarrhea on and off, and also GERD come and go. 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 VITAL SIGNS:see workflow HEENT: Nonicteric sclerae, PERRLA, EOMI. Oropharynx clear. Moist mucous membranes. Conjunctivae appear well perfused. No thyroid mass. CHEST: Chest wall is nontender. HEART: Regular rate and rhythm without murmurs. LUNGS: Clear to auscultation bilaterally. ABDOMEN: Soft, positive bowel sounds, nontender, no organomegaly.no flank tenderness SKIN: No rash, no excessive bruising, petechiae, or purpura. NEUROLOGIC: Cranial nerves II-XII intact without motor/sensory deficit. A/P: 1/ normal colonoscopy, 2/ chronic anemia, normocytic could be from CKD stage III, also just noted his UA from 10/14 with blood noted PLAN: 1/await elcetrophoresis, and vitamins 2/ recheck UA, if blood pos then refer urology f/u 4-6 month ?? 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 Son No problems noted. Son No problems noted. Son No problems noted. Social History Household Members: Spouse Housing: Apartment Do you presently have visiting nurse or other home services: Yes Alcohol intake: current Alcohol intake frequency: holidays/special occasions only Patient Tobacco Use Status: Former Tobacco user Quit Date: >35 yrs ago Tobacco use type: Cigarette e-Cigarette/Vaping Use: Never Used Second Hand Smoke Exposure: No Advance Directives Date on File: 07/30/20 service: No Current occupational status: retired Cognitive needs: No Hearing needs: No Vision needs: Yes Assessment & Plan Assessment & Plan (1) Chronic disease anemia: Code(s): D63.8 - Anemia in other chronic diseases classified elsewhere Orders: Orders UA CC w/rflx Micro + Cult Today R30.0 - Dysuria Coding Level of Care Code Est Pt Level 3 (79896) Diagnoses Chronic disease anemia D63.8
[2023-06-10 09:56] VITALS: BP 145/95; PULSE 76; BMI 29.1
== END 2023-06-10 10:07 | disposition home or self-care (01) ==
PROVIDERS: PCP Internal Medicine; Visit Provider Internal Medicine Gastroenterology
DX: D64.9 Anemia, unspecified (principal)
CPT/HCPCS: 99213

== ENCOUNTER 2023-06-10 09:48 | Outpatient (REF) | payer OTHER, SELFPAY ==
[2023-06-10 10:54] LABS: Appearance Urine Clear; Color Urine Yellow; Glucose Urine UA Negative (Negative); Leukocyte Esterase Urine Negative (Negative); Nitrite Urine Negative (Negative); Urine Blood Negative (Negative); Urine Ketones Negative (Negative); Urine Protein Negative (Neg-Trace)
== END 2023-06-10 09:49 | disposition home or self-care (01) ==
LOC: HO.LAB 09:48
PROVIDERS: PCP Internal Medicine; Visit Provider Internal Medicine Gastroenterology
DX: R30.0 Dysuria (principal); D64.9 Anemia, unspecified
CPT/HCPCS: 81003; 99212

== ENCOUNTER 2023-07-11 14:49 | Outpatient (REF) | payer OTHER, SELFPAY ==
--- NOTE | ~2023-07-11 | CT_ITS ---
EXAMINATION: CT CHEST WITHOUT CONTRAST CLINICAL INFORMATION: Pulmonary nodule COMPARISON: Previous chest CT November 2022 TECHNIQUE: Multidetector volumetric CT imaging of the chest was done. Axial MIP volume rendering provided. Sagittal and coronal reformatted images were obtained. This CT examination was performed using dose optimization techniques as appropriate, variously including the following: *Automated exposure control *Adjustment of mA and/or kV according to patient size (this includes techniques or standardized protocols for targeted exams where dose is matched to indication/reason for exam; i.e. extremities or head) *Use of iterative reconstruction technique DLP: 165 mGy-cm FINDINGS: LUNGS: The previously identified masslike opacity in the right lower lobe on November 2022 exam is no longer seen. The previously identified groundglass attenuation and reticular markings in the right upper lobe and smaller area in the left upper lobe appears significantly improved. There are residual increased peripheral reticular markings in both lower lobes. This appears improved in the right lower lobe and not appreciably changed in the left lower lobe compared to November 2022. 4 mm lingular nodule axial image 296 series 5 is stable. Small calcified bilateral lower lobe nodules versus parenchymal calcifications for example axial image 348 series 5 are stable. MEDIASTINUM: The mediastinum is normal. CORONARY ARTERY CALCIFICATION: Moderate to severe PLEURA: There is no pleural effusion. No pleural mass or thickening. AXILLA: No lymphadenopathy. UPPER ABDOMEN: Unremarkable. OSSEOUS STRUCTURES: Degenerative changes of the spine. CT/CT chest wo IV con IMPRESSION: Resolved masslike density in the right lower lobe. Improved increased reticular markings and groundglass attenuation in both upper lobes. Increased peripheral or subpleural reticular markings in both lower lobes are still seen, although slightly improved on the right. It is uncertain whether this represents postinfectious or inflammatory changes versus interstitial lung disease. Fleischner guidelines were followed.
== END 2023-07-11 14:50 | disposition home or self-care (01) ==
LOC: HO.CT 14:49
PROVIDERS: PCP Internal Medicine; Visit Provider Hospitalist
DX: R91.1 Solitary pulmonary nodule (principal)
CPT/HCPCS: 71250

== ENCOUNTER 2023-09-07 17:41 | Emergency (ER) | payer OTHER, SELFPAY ==
--- NOTE | ~2023-09-07 | XR_ITS ---
EXAMINATION: XR FOOT, LEFT CLINICAL INFORMATION: Trauma. Great toe pain. COMPARISON: None available. TECHNIQUE: AP, lateral, and oblique views of the left foot. FINDINGS: The bones and soft tissues are normal. No fracture. Alignment is anatomic. Joint spaces are maintained. Small calcaneal spur at the Achilles tendon insertion. Soft tissue arterial calcification. XR/XR foot LT min 3V IMPRESSION: No fracture or dislocation.
--- NOTE | 2023-09-07 17:49 | ED_ITS ---
HPI - Extremity Injury (Lower) General Chief Complaint: Extremity Injury, Lower Stated Complaint: LT big toe inj s/p fall 09/01 Time Seen by Provider: 09/07/23 18:05 Source: patient Mode of arrival: ambulatory Limitations: no limitations History of Present Illness HPI Narrative: Patient is a 73-year-old male who presents emergency department for evaluation of traumatic left great toe pain. He reports 6 days ago, 09/01/2023 a mechanical trip and fall. He states he was taking out the trash when he missed a step resulting in him falling Munoz in stubbing the toe. He denies any head strike or loss of consciousness. He continues to have pain which brought him in today, he thought it would resolve on its own. He is concerned about a fracture, and the discoloration to his toenail. Related Data Home Medications Medication Instructions Recorded Confirmed nebulizers 10/28/22 04/14/23 Previous Rx's Medication Instructions Recorded blood-glucose meter (FreeStyle #1 ea 12/15/21 Lite Meter kit) lancets 28 gauge (FreeStyle #100 ea 12/15/21 Lancets) albuterol sulfate 2.5 mg/3 mL 2.5 mg (3 mL) inhalation Q4-6H PRN 09/28/22 (0.083 %) solution for nebulization shortness of breath or wheezing #90 mL albuterol sulfate 90 mcg/actuation 1 inh inhalation QID PRN shortness 09/28/22 aerosol inhaler of breath or wheezing #8.5 grams metoprolol succinate 100 mg 100 mg PO DAILY #90 tabs 12/16/22 tablet,extended release 24 hr cyclobenzaprine 5 mg tablet 5 mg PO TID PRN muscle spasm 7 02/24/23 days #21 tabs metformin 500 mg tablet 500 mg PO BID 90 days #180 tabs 03/10/23 fluticasone propionate 110 1 puff PO BID 30 days #12 ea 04/14/23 mcg/actuation HFA aerosol inhaler (Flovent HFA) insulin glargine U-300 conc 300 60 unit (0.2 mL) subcut BEDTIME 90 04/14/23 unit/mL (3 mL) subcutaneous pen days #18 mL (Toujeo Max U-300 SoloStar) losartan 100 mg tablet 100 mg PO DAILY 90 days #90 tabs 05/02/23 cholecalciferol (vitamin D3) 25 25 mcg PO DAILY 90 days #90 caps 05/18/23 mcg (1,000 unit) capsule glipizide 10 mg tablet 10 mg PO QAM 90 days #90 tabs 06/02/23 amlodipine 10 mg tablet 10 mg PO DAILY 90 days #90 tabs 06/08/23 atorvastatin 80 mg tablet 80 mg PO BEDTIME 90 days #90 tabs 06/08/23 blood sugar diagnostic (FreeStyle #50 ea 06/16/23 Lite Strips) gabapentin 100 mg capsule 200 mg (2 x 100 mg) PO BEDTIME 90 08/17/23 days #180 caps Allergies Allergy/AdvReac Type Severity Reaction Status Date / Time gabapentin Allergy Mild Itching Verified 09/07/23 17:53 Review of Systems Review of Systems: Yes all other systems are reviewed and are negative [facility] Past Medical History Attestation statement: The following information was validated with the patient. 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 Son No problems noted. Son No problems noted. Son No problems noted. Social History Social History Household Members: Spouse Housing: Apartment Do you presently have visiting nurse or other home services: Yes Alcohol intake: current Alcohol intake frequency: holidays/special occasions only Patient Tobacco Use Status: Former Tobacco user Quit Date: >35 yrs ago Tobacco use type: Cigarette e-Cigarette/Vaping Use: Never Used Second Hand Smoke Exposure: No Advance Directives: Yes Advance Directives on File: Yes Advance Directives Date on File: 07/30/20 service: No Current occupational status: retired Cognitive needs: No Hearing needs: No Vision needs: Yes Physical Exam Vital Signs: Vital Signs: Last Vital Signs Temp 98.3 F 09/07/23 17:50 Pulse 70 09/07/23 17:50 Resp 16 09/07/23 17:50 BP 153/71 H 09/07/23 17:50 Pulse Ox 97 09/07/23 17:50 O2 Del Method Room Air 09/07/23 17:50 BMI result Body Mass Index 35.7 Appearance: Alert.?Oriented to person, place and time. No acute distress.?Normal affect. Eyes: Pupils equal, round and reactive to light.? ENT: Pharynx normal.?? Neck: Normal inspection.? Neck supple.?? CVS: Heart sounds normal. Normal heart rate and rhythm.? Pulses normal.?? Respiratory: No respiratory distress.? Lung sounds clear to auscultation bilaterally?? Abdomen: Soft and non-tender. Normoactive bowel sounds. Skin: Skin warm and dry.? Normal skin color.? Extremities: No lower extremity edema.? No calf ttp. Left great toe with mild swelling, old subungual hematoma. Neurovascularly intact distally. 2+ DP/PT pulse bilaterally. Neuro: Moves all extremities spontaneously. Sensation intact bilaterally. No focal neuro deficits. Ambulates with normal steady gait. Course Course Course Narrative: RME: 73yo m w/PMHx anemia, DAX, CKD, HTN, DM, CAD, HLD, Hyperparathyroid, c/o L great toe pain s/p mechanical trip & fall on 09/01 after missing a step taking trash out. denies head trauma or LOC L great toenail with hold subungal hematoma. mild ttp. NV intact XRs ordered Full HPI, ROS and PE to be performed by primary ED provider. Medical Decision Making Medical Decision Making MDM Narrative: Patient is a 73-year-old male with past medical history of anemia, DAX, CKD, HTN, DM, CAD, HLD, Hyperparathyroid presenting to emergency department for evaluation of traumatic left great toe pain as per HPI. At the time my examination he is overall well-appearing, nontoxic, afebrile. Full AROM to the digit is intact, no warmth, fevers to suggest septic joint. No obvious deformit y. Old subungual hematoma, discussed with patient no indication for trephination at this time given duration of presents, blood is likely coagulated and already self-resolving I do not feel that trephination would be of benefit. XR imaging was obtained to evaluate for fracture/dislocation which reveals no acute osseous abnormality. I reviewed these findings with patient. Discussed wound care for discharge home, rest, ice, acetaminophen for pain. Outpatient follow-up with primary care provider. Reviewed worrisome signs and symptoms that would warrant re-evaluation emergency department. All questions answered. Stable for discharge. Differential Diagnosis Differential Diagnoses: The differential diagnosis associated with the presentation includes (See narrative above for further detail) Independent Interpretation I performed an independent interpretation of an: Plain X-Ray (I personally interpreted x-ray and agree with radiologist impression.) Radiology Impression Discussion of test interpretation with radiology: I have reviewed the radiologist's reading. Radiologist Impression: XR/XR foot LT min 3V IMPRESSION: No fracture or dislocation. Prescription Management I considered prescription management with: Pain Medication (Acetaminophen) Discharge Plan Discharge Clinical Impression: Subungual contusion of toe Patient Disposition: Home, Self-Care Additional Instructions: X-ray does not show any evidence of fracture or dislocation. Please be sure to rest, refrain from excessive walking, you may apply ice to the area for 10-15 minutes 3-4 times daily. The bruising, collection of blood beneath the nail wilfredo l begin to improve on its own. You can take Tylenol 500 mg, 2 tablets (1,000mg) every 4-6 hours as needed for pain, but not to exceed 3 doses daily (3,000mg). Follow-up with primary care provider? Prescriptions: No Action metoprolol succinate 100 mg tablet extended release 24 hr 100 mg PO DAILY Qty: 90 3RF metformin 500 mg tablet 500 mg PO BID 90 Days Qty: 180 3RF losartan 100 mg tablet 100 mg PO DAILY 90 Days Qty: 90 1RF cholecalciferol (vitamin D3) 25 mcg (1,000 unit) capsule 25 mcg PO DAILY 90 Days Qty: 90 1RF glipizide 10 mg tablet 10 mg PO QAM 90 Days Qty: 90 2RF atorvastatin 80 mg tablet 80 mg PO BEDTIME 90 Days Qty: 90 1RF amlodipine 10 mg tablet 10 mg PO DAILY 90 Days Qty: 90 1RF (DME) FreeStyle Lite Strips Strip See Rx Instructions .Route Qty: 50 6RF Rx Instructions: As directed gabapentin 100 mg capsule 200 mg PO BEDTIME 90 Days Qty: 180 0RF albuterol sulfate 90 mcg/actuation HFA aerosol inhaler 1 inh inhalation QID PRN (Reason: shortness of breath or wheezing) Qty: 8.5 0RF albuterol sulfate 2.5 mg /3 mL (0.083 %) solution for nebulization 2.5 mg inhalation Q4-6H PRN (Reason: shortness of breath or wheezing) Qty: 90 0RF cyclobenzaprine 5 mg tablet 5 mg PO TID PRN (Reason: muscle spasm) 7 Days Qty: 21 0RF (DME) blood-glucose meter [FreeStyle Lite Meter] Kit See Rx Instructions .Route Qty: 1 0RF Rx Instructions: As directed (DME) lancets [FreeStyle Lancets] 28 gauge misc See Rx Instructions .Route Qty: 100 6RF Rx Instructions: As directed Flovent HFA 110 mcg/actuation HFA aerosol inhaler 1 puff PO BID 30 Days Qty: 12 11RF Toujeo Max U-300 SoloStar 300 unit/mL (3 mL) insulin pen 60 unit subcut BEDTIME 90 Days Qty: 18 1RF (DME) nebulizers Misc See Rx Instructions .Route Rx Instructions: As directed Referrals: Rose Mary Jones MD [Primary Care Provider] -
[2023-09-07 17:50] VITALS: BP 153/71; PULSE 70; RESP 16; TEMP 36.8; O2SAT 97; BMI 35.7
--- NOTE | 2023-09-07 19:36 | PC.NURSE ---
pt ambulatory with steady gait to anderson requested warm blanket. [email or web address].
[2023-09-07 20:17] VITALS: BP 156/70; PULSE 74; RESP 16; O2SAT 98
== END 2023-09-07 20:19 | disposition home or self-care (01) ==
PROVIDERS: Emergency Provider Emergency Medicine; PCP Internal Medicine
DX: S90.112A Contusion of left great toe without damage to nail, initial encounter (principal); M79.672 Pain in left foot; Y29.XXXA Contact with blunt object, undetermined intent, initial encounter; Y93.9 Activity, unspecified; Y92.9 Unspecified place or not applicable; Y99.9 Unspecified external cause status; Z79.899 Other long term (current) drug therapy; Z87.891 Personal history of nicotine dependence
CPT/HCPCS: 73630; 99283

== ENCOUNTER 2023-09-08 14:44 | Outpatient (AMB) | payer OTHER, SELFPAY ==
--- NOTE | 2023-09-08 14:48 | A.OFFPC_ITS ---
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 Accompanied by: Self / Same As Patient Allergies gabapentin Allergy (Mild, Verified 09/08/23 15:14) Itching Medication List - Last Reconciled 09/08/23 by Rose Mary Mcneill MD albuterol sulfate 90 mcg/actuation 1 inh inhalation QID PRN albuterol sulfate 2.5 mg (3 mL) inhalation Q4-6H PRN amlodipine 10 mg PO DAILY 90 days atorvastatin 80 mg PO BEDTIME 90 days blood sugar diagnostic (FreeStyle Lite Strips) As directed blood-glucose meter (FreeStyle Lite Meter kit) As directed cholecalciferol (vitamin D3) 25 mcg PO DAILY 90 days cyclobenzaprine 5 mg PO TID PRN 7 days fluticasone propionate 110 mcg/actuation (Flovent HFA) 1 puff PO BID 30 days gabapentin 200 mg (2 x 100 mg) PO BEDTIME 90 days glipizide 10 mg PO QAM 90 days insulin glargine U-300 conc (Toujeo Max U-300 SoloStar) 60 units (0.2 mL) subcut BEDTIME 90 days lancets (FreeStyle Lancets) As directed losartan 100 mg PO DAILY 90 days metformin 500 mg PO BID 90 days metoprolol succinate ER 100 mg PO DAILY nebulizers As directed Tobacco use date assessed: 12/13/22 Fall risk assessment: 1 Fall in past year Last assessed Fall Risk: 09/08/23 Dental Screening Dental Screen Date: 09/08/23 Did you have a dental visit in the last 12 months?: Yes Did you have a dental problem in the last 6 months where you did not have access to dental care?: No Was dental information given to patient?: Patient has dentist HPI HPI Comments History of Present Illness Details This is a 73-year-old male with diabetes mellitus type 2, hypertension, pure hypercholesterolemia chronic kidney disease stage 3 that comes for hospital discharge follow-up with discharge date 09/07/2023 due to toe injury. He hit his left 1st toe and it has a blue nail and he was concerned. X-rays were done which rule out fracture. No deformity. A1c was elevated and I will change glipizide to Jardiance. Blood pressure stable. LDL within goal. GFR of 42 and was told to avoid NSAIDs. [facility] Medical History (Updated 09/08/23 @ 16:28 by Rose Mary Mcneill MD) Myocardial infarction Arthritis Pulmonary nodule Cavitary pneumonia MRSA bacteremia Hypovitaminosis D Former smoker Hyperparathyroidism Annual physical exam CAD (coronary artery disease) Former smoker Obese Microalbuminuria CKD (chronic kidney disease) stage 3, GFR 30-59 ml/min senior living (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 Son No problems noted. Son No problems noted. Son No problems noted. Social History Household Members: Spouse Housing: Apartment Do you presently have visiting nurse or other home services: Yes Alcohol intake: current Alcohol intake frequency: holidays/special occasions only Patient Tobacco Use Status: Former Tobacco user Quit Date: >35 yrs ago Tobacco use type: Cigarette e-Cigarette/Vaping Use: Never Used Second Hand Smoke Exposure: No Advance Directives Date on File: 07/30/20 service: No Current occupational status: retired Cognitive needs: No Hearing needs: No Vision needs: Yes Questionnaire Thrive Questionnaire Date Thrive assessed: 12/13/22 DAX-7 AMB Questionnaire DAX-7 Date DAX - 7 assessed: 12/13/22 Source: Developed by Drs. Jose Mandujano, Yamel Weaver, Adrian Dee and colleagues, with an educational barry from [employer]. Review of Systems Const All systems reviewed & are unremarkable except as noted in HPI and below Eyes Reports no additional complaints, Denies change in vision and Denies other visual disturbances Card Denies chest pain at rest, Denies chest pain with activity, Denies edema, Denies irregular heart rhythm, Denies claudication, Denies dyspnea, Denies dyspnea on exertion, Denies orthopnea, Denies paroxysmal nocturnal dyspnea and Denies slow heart rate Resp Denies cough, Denies dyspnea and Denies dyspnea on exertion GI Denies abdominal pain, Denies change in bowel habits, Denies excessive flatus, Denies nausea and Denies vomiting Denies urinary hesitancy, Denies urinary incontinence and Denies urinary urgency Musc Denies abnormal gait, Denies atrophy, Denies deformity and Denies limited range of motion Skin/Breast Denies bleeding lesions, Denies changing lesions and Denies rash Neuro Denies abnormal gait and Denies lack of coordination Physical exam (Primary Care) Vital Signs: Last Vital Signs Pulse 58 09/08/23 14:51 BP 132/80 09/08/23 14:51 Pulse Ox 98 09/08/23 14:51 Oxygen Delivery Method Room Air 09/08/23 14:51 BMI result Body Mass Index 28.8 Tobacco/Smoking Status: Tobacco use Status Tobacco use date assessed 12/13/22 09/08/23 14:49 Patient Tobacco Use Status Former Tobacco user 09/08/23 14:49 Tobacco use type Cigarette 09/08/23 14:49 e-Cigarette/Vaping Use Never Used 09/08/23 14:49 Thrive Assessment: Date of Thrive Assessment Date Thrive assessed 12/13/22 09/08/23 14:49 Eyes General: appearance normal, both eyes and all related structures Eyelids: Yes eyelids normal Conjunctivae: conjunctivae normal Neck Neck: Yes normal visual inspection and Yes supple Resp Effort & Inspection: normal respiratory effort Auscultation: clear to auscultation bilaterally Cardio Jugular venous distension: no JVD Rate: regular rate Rhythm: regular rhythm Heart sounds: S1 normal heart sound present and S2 normal heart sound present Extrem General: Yes full ROM Office Procedures Flu Questionnaire Does the patient have a severe egg allergy?: No Does the patient have severe life threatening allergies?: No Does the patient have a fever or illness today?: No Has the patient ever had Guillain-Middleton Syndrome?: No Has the patient ever had any past reaction to a flu shot?: No Results AMB Hemoglobin A1c AMB Hemoglobin A1c 10.6 % Last Edit by LAZARO Fletcher on 09/08/23 15: 01 Immunizations flu vacc [id number] 6mos up(PF) 60 mcg(15 mcgx4)/0.5 mL IM syringe Performing Provider: Rose Mary Mcneill MD [facility] Administered by: LAZARO Fletcher on 09/08/23 15:24 Dose Route Admin Location Dispensed Lot Number Expiration Date NDC [employer] 0.5 mL IM Left Deltoid 0.5 mL [id number] 04/22/24 [id number] [employer] VIS Given Date VIS Provided VIS Publication Date 09/08/23 Single Vaccine 21 Eligibility Eligibility Date Funding Source Not VFC Eligible 09/08/23 Private Results Reviewed Results Reviewed: Laboratory Last Values Hgb A1c (Clinic) 10.6 % (4.0-6.0) H 09/08/23 14:58 Assessment and Plan Assessment & Plan (1) Hospital discharge follow-up: Code(s): Z09 - Encounter for follow-up examination after completed treatment for conditions other than malignant neoplasm Plan: Discharge date 09/07/2023 due to toe injury. X-ray was done which ruled out fracture. Was advised to place ice in toe. (2) Toe injury: Code(s): S99.929A - Unspecified injury of unspecified foot, initial encounter Qualifiers: Encounter type: subsequent encounter Laterality: left Qualified Code(s): S99.922D - Unspecified injury of left foot, subsequent encounter Plan: Place ice in toe. 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 Discontinue glipizide. Start Jardiance. Continue metformin. A1c goal is equal or less than 7%. (4) Essential hypertension: Code(s): I10 - Essential (primary) hypertension Plan: Continue losartan. Blood pressure goal is equal or less than 130/80. (5) Pure hypercholesterolemia: Code(s): E78.00 - Pure hypercholesterolemia, unspecified Plan: Continue statins. LDL goal is less than 70. (6) CKD (chronic kidney disease) stage 3, GFR 30-59 ml/min: Code(s): N18.30 - Chronic kidney disease, stage 3 unspecified Qualifiers: Chronic kidney disease stage 3 subtype: stage 3a (GFR 45-59) Qualified Code(s): N18.31 - Chronic kidney disease, stage 3a Plan: Avoid NSAIDs. Keep blood pressure within goal. Orders: Orders Vitamin D 25-OH Total 4 Months E55.9 - Vitamin D deficiency, unspecified Lipid Panel 4 Months E78.5 - Hyperlipidemia, unspecified Microalbumin, Random (w Creat) 4 Months E11.9 - Type 2 diabetes mellitus without complications Comprehensive [place]. Panel Fast 4 Months E11.9 - Type 2 diabetes mellitus without complications AMB Hemoglobin A1c Today E11.9 - Type 2 diabetes mellitus without complications Influenza [id number] Immunization Today Z23 - Encounter for immunization Medications: New Ventolin HFA 90 mcg/actuation (albuterol sulfate) 2 puffs inhalation Q6H 30 days PRN 8 grams 3RF shortness of breath or wheezing NS J45.909 - Unspecified asthma, uncomplicated empagliflozin (Jardiance) 10 mg PO DAILY 90 days 90 tabs 1RF Changed From blood sugar diagnostic (FreeStyle Lite Strips) As directed 50 ea 6RF E11.9 - Type 2 diabetes mellitus without complications To blood sugar diagnostic (FreeStyle Lite Strips) USe 1 test strip twice a day 50 ea 6RF E11.9 - Type 2 diabetes mellitus without complications From lancets (FreeStyle Lancets) As directed 100 ea 6RF E11.9 - Type 2 diabetes mellitus without complications To lancets (FreeStyle Lancets) Us 1 lancet twice a day 100 ea 6RF E11.9 - Type 2 diabetes mellitus without complications Discontinued glipizide Discontinued Reason: Patient Completed Course 10 mg PO QAM 90 days 90 tabs 2RF Coding Level of Care Code TCM Mod MDM <= 7 Days Diagnoses Hospital discharge follow-up Z09 Injury of toe on left foot, subsequent encounter S99.922D Encounter type: subsequent encounter Laterality: left Type 2 diabetes mellitus with microalbuminuria, with long-term current use of insulin E11.29; R80.9; Z79.4 Diabetes mellitus type: type 2 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
[2023-09-08 14:51] VITALS: BP 132/80; PULSE 58; O2SAT 98; BMI 28.8
== END 2023-09-08 15:32 | disposition home or self-care (01) ==
PROVIDERS: PCP Internal Medicine; Visit Provider Internal Medicine
DX: Z23 Encounter for immunization (principal); S99.922A Unspecified injury of left foot, initial encounter; I12.9 Hypertensive chronic kidney disease with stage 1 through stage 4 chronic kidney disease, or unspecified chronic kidney disease; E11.22 Type 2 diabetes mellitus with diabetic chronic kidney disease; N18.31 Chronic kidney disease, stage 3a
CPT/HCPCS: 83036; 90471; 90686; 99214

== ENCOUNTER 2023-10-08 23:41 | Emergency (ER) | payer OTHER, SELFPAY ==
[2023-10-08 23:54] VITALS: BP 148/70; PULSE 57; RESP 18; TEMP 36.5; O2SAT 98; BMI 28.6
--- NOTE | 2023-10-09 01:17 | ED_ITS ---
HPI - Extremity Injury (Lower) General Chief Complaint: Extremity Injury, Lower Stated Complaint: fall, toe inj Time Seen by Provider: 10/09/23 01:06 Source: patient, family, RN notes reviewed and old records reviewed Mode of arrival: ambulatory History of Present Illness HPI Narrative: 73-year-old male with a past medical history of PR, arthritis, MRSA, CKD, asthma, HLD, HTN, diabetes, sending to the ED complaining of continued left gr eat toe pain s/p mechanical trip and fall 1 month ago. Patient was evaluated in our ED on 09/07 for similar symptoms had x-rays at that time which were unremarkable. Denies more recent injury/trauma or fall. States toe pain initially improved however worsened over the past few days. Denies numbness, tingling, weakness, fever/chills Related Data Home Medications Medication Instructions Recorded Confirmed nebulizers 10/28/22 09/08/23 Previous Rx's Medication Instructions Recorded albuterol sulfate 2.5 mg/3 mL 2.5 mg (3 mL) inhalation Q4-6H PRN 09/28/22 (0.083 %) solution for nebulization shortness of breath or wheezing #90 mL albuterol sulfate 90 mcg/actuation 1 inh inhalation QID PRN shortness 09/28/22 aerosol inhaler of breath or wheezing #8.5 grams metoprolol succinate 100 mg 100 mg PO DAILY #90 tabs 12/16/22 tablet,extended release 24 hr cyclobenzaprine 5 mg tablet 5 mg PO TID PRN muscle spasm 7 02/24/23 days #21 tabs metformin 500 mg tablet 500 mg PO BID 90 days #180 tabs 03/10/23 fluticasone propionate 110 1 puff PO BID 30 days #12 ea 04/14/23 mcg/actuation HFA aerosol inhaler (Flovent HFA) insulin glargine U-300 conc 300 60 unit (0.2 mL) subcut BEDTIME 90 04/14/23 unit/mL (3 mL) subcutaneous pen days #18 mL (Toujeo Max U-300 SoloStar) losartan 100 mg tablet 100 mg PO DAILY 90 days #90 tabs 05/02/23 cholecalciferol (vitamin D3) 25 25 mcg PO DAILY 90 days #90 caps 05/18/23 mcg (1,000 unit) capsule amlodipine 10 mg tablet 10 mg PO DAILY 90 days #90 tabs 06/08/23 atorvastatin 80 mg tablet 80 mg PO BEDTIME 90 days #90 tabs 06/08/23 gabapentin 100 mg capsule 200 mg (2 x 100 mg) PO BEDTIME 90 08/17/23 days #180 caps Ventolin HFA 90 mcg/actuation 2 puff inhalation Q6H PRN 09/08/23 aerosol inhaler (albuterol sulfate) shortness of breath or wheezing 30 days #8 grams empagliflozin 10 mg tablet 10 mg PO DAILY 90 days #90 tabs 09/08/23 (Jardiance) blood sugar diagnostic (OneTouch #100 ea 10/07/23 Verio test strips) blood-glucose meter (OneTouch #1 ea 10/07/23 Verio Flex Start kit) lancets 32 gauge #100 ea 10/07/23 acetaminophen 500 mg tablet 500 mg PO Q6H PRN fever or pain 10/09/23 (Tylenol Extra Strength) #14 tabs Allergies Allergy/AdvReac Type Severity Reaction Status Date / Time gabapentin Allergy Mild Itching Verified 10/09/23 00:04 Review of Systems Review of Systems: Constitutional: No Fever, No Chills ENT/Mouth: No Ear Pain, No Nasal Congestion, No sore throat, No Rhinorrhea, No Swallowing Difficulty Cardiovascular: No Chest Pain, No SOB Respiratory: No Cough, No Sputum Musculoskeletal: + joint pain, No Myalgias, No Joint Swelling Skin: + Skin Lesions, No rash Neuro: No Weakness, No Numbness, No Paresthesias Yes all other systems are reviewed and are negative Constitutional: Constitutional: Reports as per [facility] Past Medical History Attestation statement: The following information was validated with the patient. 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 Son No problems noted. Son No problems noted. Son No problems noted. Social History Social History Household Members: Spouse Housing: Apartment Do you presently have visiting nurse or other home services: Yes Alcohol intake: current Alcohol intake frequency: holidays/special occasions only Patient Tobacco Use Status: Former Tobacco user Quit Date: >35 yrs ago Tobacco use type: Cigarette e-Cigarette/Vaping Use: Never Used Second Hand Smoke Exposure: No Advance Directives: No Advance Directives Information Provided: No Advance Directives Date on File: 07/30/20 service: No Current occupational status: retired Cognitive needs: No Hearing needs: No Vision needs: Yes Physical Exam Vital Signs: Vital Signs: Last Vital Signs Temp 97.7 F 10/08/23 23:54 Pulse 57 10/08/23 23:54 Resp 18 10/08/23 23:54 BP 148/70 H 10/08/23 23:54 Pulse Ox 98 10/08/23 23:54 O2 Del Method Room Air 10/08/23 23:54 BMI result Body Mass Index 28.6 Const: General: cooperative, healthy appearing and no acute distress Orientation/consciousness: patient oriented x3 Limitations: no limitations HEENT: Head: Yes normal to inspection and Yes atraumatic Ears: hearing grossly normal bilaterally General nose exam: Normal external nose present Face and sinus: Yes normal facial exam Eyes: General: appearance normal, both eyes and all related structures EOM: EOMs intact bilaterally Neck: Neck: Yes normal visual inspection and Yes no meningeal signs Resp: Effort & Inspection: normal respiratory effort and no respiratory distress Cardio: Rate: regular rate Skin: Rashes: no rashes Neuro: General: patient oriented x3, tone normal and no meningeal signs Cranial nerves: Yes CN's II-XII intact bilaterally Gait exam (Neuro): Normal gait present Extrem: Other: Left great toe with noted subungual hematoma, appears old. No appreciable foot/toe swelling/erythema or warmth. No open wounds. No crepitus or ecchymosis. Mild tenderness to MCP. Medications Administered Discontinued Medications Generic Name Dose Route Start Last Admin Trade Name Freq PRN Reason Stop Dose Admin Acetaminophen 650 mg 10/09/23 01:17 10/09/23 01:31 Acetaminophen 325 Mg Tablet PO 10/09/23 01:18 650 mg ONCE ONE Administration Medical Decision Making Medical Decision Making MDM Narrative: 73-year-old male with a past medical history of PR, arthritis, MRSA, CKD, as thma, HLD, HTN, diabetes, sending to the ED complaining of continued left great toe pain s/p mechanical trip and fall 1 month ago. On exam vital signs stable, NAD, nontoxic appearing, physical exam as noted above with subungual hematoma, old. No evidence of cellulitis/septic joint. Low suspicion for fracture/dislocation or gout. Unlikely DVT. Plan: Nail trephination - discussed with patient and son that unlikely to provide symptomatic relief as blood is coagulated Podiatry follow-up, p.o. Tylenol Please refer to course for remaining clinical decision making, interpretation of labs/imaging results, and discussions with consultants and/or family members. Differential Diagnosis Differential Diagnoses: The differential diagnosis associated with the presentation includes As above Independent Historian Clinical information obtained from an independent historian. History obtained from or confirmed by: Other (Son) External Record Review External record reviewed: Inpatient record, Office record, Outpatient record, Prior outpatient labs, Prior outpatient radiology, Primary care record and Outside ED record Tests considered The following testing was considered but not selected: As above Prescription Management I considered prescription management with: Pain Medication Discharge Plan Discharge Clinical Impression: Great toe pain Patient Disposition: Home, Self-Care Instructions: Subungual Hematoma (ED) Additional Instructions: Practice warm water soaks Take Tylenol at home for pain Ice and elevate as needed Please follow-up with Podiatry and your primary care doctor If pain persists or worsens/becomes unbearable or area begins to look infected return to the ED Prescriptions: New acetaminophen [Tylenol Extra Strength] 500 mg tablet 500 mg PO Q6H PRN (Reason: fever or pain) Qty: 14 0RF No Action metoprolol succinate 100 mg tablet extended release 24 hr 100 mg PO DAILY Qty: 90 3RF metformin 500 mg tablet 500 mg PO BID 90 Days Qty: 180 3RF losartan 100 mg tablet 100 mg PO DAILY 90 Days Qty: 90 1RF cholecalciferol (vitamin D3) 25 mcg (1,000 unit) capsule 25 mcg PO DAILY 90 Days Qty: 90 1RF atorvastatin 80 mg tablet 80 mg PO BEDTIME 90 Days Qty: 90 1RF amlodipine 10 mg tablet 10 mg PO DAILY 90 Days Qty: 90 1RF gabapentin 100 mg capsule 200 mg PO BEDTIME 90 Days Qty: 180 0RF (DME) blood-glucose meter [OneTouch Verio Flex Start] Kit See Rx Instructions .Route Qty: 1 0RF Rx Instructions: test twice per day (DME) OneTouch Verio test strips Strip See Rx Instructions .Route Qty: 100 8RF Rx Instructions: test twice per day (DME) lancets 32 gauge misc See Rx Instructions .Route Qty: 100 8RF Rx Instructions: test twice per day albuterol sulfate 90 mcg/actuation HFA aerosol inhaler 1 inh inhalation QID PRN (Reason: shortness of breath or wheezing) Qty: 8.5 0RF albuterol sulfate 2.5 mg /3 mL (0.083 %) solution for nebulization 2.5 mg inhalation Q4-6H PRN (Reason: shortness of breath or wheezing) Qty: 90 0RF cyclobenzaprine 5 mg tablet 5 mg PO TID PRN (Reason: muscle spasm) 7 Days Qty: 21 0RF Flovent HFA 110 mcg/actuation HFA aerosol inhaler 1 puff PO BID 30 Days Qty: 12 11RF Toujeo Max U-300 SoloStar 300 unit/mL (3 mL) insulin pen 60 unit subcut BEDTIME 90 Days Qty: 18 1RF albuterol sulfate [Ventolin HFA] 90 mcg/actuation HFA aerosol inhaler 2 puff inhalation Q6H PRN (Reason: shortness of breath or wheezing) 30 Days Qty: 8 3RF Jardiance 10 mg tablet 10 mg PO DAILY 90 Days Qty: 90 1RF (DME) nebulizers Misc See Rx Instructions .Route Rx Instructions: As directed Referrals: Yoandy Andrew MD [Physician] - Chet Andrew DPM [Physician] -
[2023-10-09] MEDS: Acetaminophen 325 MG TABLET 650 MG PO (01:31)
== END 2023-10-09 01:35 | disposition home or self-care (01) ==
PROVIDERS: Emergency Provider Emergency Medicine Emergency Medical Services; PCP Internal Medicine
DX: M79.675 Pain in left toe(s) (principal); I12.9 Hypertensive chronic kidney disease with stage 1 through stage 4 chronic kidney disease, or unspecified chronic kidney disease; E11.22 Type 2 diabetes mellitus with diabetic chronic kidney disease; N18.9 Chronic kidney disease, unspecified; Z79.899 Other long term (current) drug therapy
CPT/HCPCS: 99283

== ENCOUNTER 2023-12-16 09:19 | Outpatient (AMB) | payer OTHER, SELFPAY ==
--- NOTE | 2023-12-16 09:24 | MHC.OFFVIS ---
Intake Vital Signs 12/16/23 09:28 Height 5 ft 5 in Weight 167 lb BMI 27.8 BP 131/78 Blood Pressure Location Lt brachial Position Sitting Pulse 59 Intake Visit Reasons: 6 month fu Intake Note: Patient 6 month for Anemia Patient cc: acid reflex on and off, diarrhea come and go, and some tiredness. 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 VITAL SIGNS:see workflow HEENT: Nonicteric sclerae, PERRLA, EOMI. Oropharynx clear. Moist mucous membranes. Conjunctivae appear well perfused. No thyroid mass. CHEST: Chest wall is nontender. HEART: Regular rate and rhythm without murmurs. LUNGS: Clear to auscultation bilaterally. ABDOMEN: Soft, positive bowel sounds, nontender, no organomegaly.no flank tenderness SKIN: No rash, no excessive bruising, petechiae, or purpura. NEUROLOGIC: Cranial nerves II-XII intact without motor/sensory deficit. A/P: 1/ normal colonoscopy, 2/ chronic anemia, normocytic could be from CKD stage III, also just noted his UA from 10/14 with blood noted but repeat UA was negative PLAN: 1/ repeat HGB today 2/ recheck UA, f/u 4-6 month--if remains stable at next visit will d/c back to PCP [facility] Medical History Myocardial infarction Arthritis Pulmonary nodule Cavitary pneumonia MRSA bacteremia Hypovitaminosis D Former smoker Hyperparathyroidism Annual physical exam CAD (coronary artery disease) Former smoker Obese Microalbuminuria CKD (chronic kidney disease) stage 3, GFR 30-59 ml/min 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 Son No problems noted. Son No problems noted. Son No problems noted. Social History Household Members: Spouse Housing: Apartment Do you presently have visiting nurse or other home services: Yes Alcohol intake: current Alcohol intake frequency: holidays/special occasions only Patient Tobacco Use Status: Former Tobacco user Quit Date: >35 yrs ago Tobacco use type: Cigarette e-Cigarette/Vaping Use: Never Used Second Hand Smoke Exposure: No Advance Directives Date on File: 07/30/20 service: No Current occupational status: retired Cognitive needs: No Hearing needs: No Vision needs: Yes Physical Exam Vital Signs: Last Vital Signs Pulse 59 12/16/23 09:28 BP 131/78 12/16/23 09:28 BMI result Body Mass Index 27.8 Assessment & Plan Assessment & Plan (1) Chronic disease anemia: Code(s): D63.8 - Anemia in other chronic diseases classified elsewhere Plan: A/P: 1/ normal colonoscopy, 2/ chronic anemia, normocytic could be from CKD stage III, also just noted his UA from 10/14 with blood noted but repeat UA was negative PLAN: 1/ repeat HGB today 2/ recheck UA, Orders: Orders UA CC w/rflx Micro + Cult Today D63.8 - Anemia in other chronic diseases classified elsewhere, R30.0 - Dysuria Complete Blood Count Auto Diff Today D63.8 - Anemia in other chronic diseases classified elsewhere Coding Level of Care Code Est Pt Level 3 (04406) Diagnoses Chronic disease anemia D63.8
[2023-12-16 09:28] VITALS: BP 131/78; PULSE 59; BMI 27.8
== END 2023-12-16 10:10 | disposition home or self-care (01) ==
PROVIDERS: PCP Internal Medicine; Visit Provider Internal Medicine Gastroenterology
DX: R30.0 Dysuria (principal); D63.8 Anemia in other chronic diseases classified elsewhere
CPT/HCPCS: 99213

== ENCOUNTER → 2023-12-16 09:19 | Outpatient (BNVA) | payer OTHER, SELFPAY | PROVIDERS: PCP Internal Medicine; Visit Provider Internal Medicine Gastroenterology | DX: I12.9 Hypertensive chronic kidney disease with stage 1 through stage 4 chronic kidney disease, or unspecified chronic kidney disease (principal); N18.30 Chronic kidney disease, stage 3 unspecified; D63.8 Anemia in other chronic diseases classified elsewhere | CPT/HCPCS: 99212 ==

== ENCOUNTER 2024-01-10 07:41 | Outpatient (REF) | payer OTHER, SELFPAY ==
[2024-01-10 08:08] LABS: MANUAL DIFF FLAG NO
[2024-01-10 08:40] LABS: Basophils Absolute Auto 0.1 X10*3/uL (0.0-0.2); Basophils Percent Auto 0.6 % (0-2); Eosinophils Absolute Auto 0.3 X10*3/uL (0.0-0.4); Eosinophils Percent Auto 2.8 % (0-4); Hematocrit 42.1 % (42.0-52.0); Hemoglobin 13.7 g/dl (14.0-18.0); Imm Gran Abs Auto 0.04 X10*3/uL (0.00-0.03); Imm Gran Pct Auto 0.4 % (0.0-0.4); Immature Retic Fraction 9.6 % (2.3-13.4); Lymphocytes Absolute Auto 2.5 X10*3/uL (1.2-4.9); Lymphocytes Percent Auto 27.5 % (20-40); Mean Corpuscular HGB Conc 32.5 g/dl (31.0-36.0); Mean Corpuscular Hemoglobin 27.7 pg (27.0-33.0); Mean Corpuscular Volume 85.2 fL (80.0-98.0); Mean Platelet Volume 11.6 fL (9.4-12.4); Monocytes Absolute Auto 0.8 X10*3/uL (0.1-1.2); Monocytes Percent Auto 9.1 % (2-11); Neutrophils Absolute Auto 5.4 x10*3/uL (2.0-8.3); Neutrophils Percent Auto 59.6 % (45-73); Platelet Count 285 X10*3/uL (160-400); Red Blood Count 4.94 X10*6/uL (4.60-5.80); Red Cell Distribution Width 14.3 % (11.0-16.0); Retic HGB Equivalent 31.3 pg (30.0-35.0); Reticulocyte Percent 1.3 % (0.5-1.8); Reticulocytes Absolute 0.065 X10*6/uL (0.026-0.095)
[2024-01-10 09:11] LABS: Alanine Aminotransferase 12 U/L (0-40); Albumin Level 4.1 g/dL (3.5-5.0); Alkaline Phosphatase 152 U/L (39-117); Anion Gap 11 (12-20); Aspartate Amino Transferase 15 U/L (5-37); Bilirubin Total 0.4 mg/dL (0.0-1.0); Blood Urea Nitrogen 17 mg/dL (9-16); Calcium 10.2 mg/dL (8.4-10.2); Carbon Dioxide 28 mmol/L (22-29); Chloride 107 mmol/L (96-108); Cholesterol 122 mg/dL (<200); Estimated Glomerular Filt Rate 46; Glucose Fasting 96 mg/dL (60-99); HDL Cholesterol 41 mg/dL (>40); Iron 104 mcg/dL (45-160); LDL Cholesterol Calculated 59 mg/dL (<100); Percent Iron Saturation 44 % (15-50); Potassium 4.6 mmol/L (3.3-5.1); Sodium 141 mmol/L (135-145); Total Iron Binding Capacity 239 mcg/dL (228-428); Total Protein 7.1 g/dL (6.5-8.0); Triglycerides 110 mg/dL (<150); Unsaturated Iron Binding 135 ug/dL
[2024-01-10 09:16] LABS: Microalbum/Creatinine Ratio Ur 71.2 ug/mg cr (<30)
[2024-01-10 09:26] LABS: Vitamin D 25-OH Total 30.2 ng/mL (>30)
[2024-01-10 12:08] LABS: Vitamin B12 413 pg/mL (200-900)
[2024-01-11 14:10] LABS: Transferrin 230 mg/dL (188-341)
== END 2024-01-10 07:42 | disposition home or self-care (01) ==
LOC: HO.LAB 07:41
PROVIDERS: PCP Internal Medicine; Visit Provider Internal Medicine
DX: D64.9 Anemia, unspecified (principal); E78.5 Hyperlipidemia, unspecified; E11.9 Type 2 diabetes mellitus without complications; E55.9 Vitamin D deficiency, unspecified; E53.8 Deficiency of other specified B group vitamins
CPT/HCPCS: 36415; 80053; 80061; 82043; 82306; 82570; 82607; 82746; 83540; 84466; 85025; 85045

== ENCOUNTER 2024-01-16 10:22 | Outpatient (AMB) | payer OTHER, SELFPAY ==
--- NOTE | 2024-01-16 10:23 | MHC.PC.OV ---
Vital Signs 01/16/24 10:24 01/16/24 11:17 Height 5 ft 5 in Weight 164 lb BMI 27.3 BP 140/80 H 138/80 Blood Pressure Location Lt brachial Lt brachial Position Sitting Sitting Intake Visit Reasons: dm Intake Note: Patient here for a follow up DM Nut Tapper Required: No Accompanied by: Self / Same As Patient Allergies gabapentin Allergy (Mild, Verified 01/16/24 10:41) Itching Medication List - Last Reconciled 01/16/24 by Rose Mary Mcneill MD acetaminophen (Tylenol Extra Strength) 500 mg PO Q6H PRN albuterol sulfate 90 mcg/actuation 1 inh inhalation QID PRN albuterol sulfate 2.5 mg (3 mL) inhalation Q4-6H PRN amlodipine 10 mg PO DAILY 90 days atorvastatin 80 mg PO BEDTIME 90 days blood sugar diagnostic (Skyepackuch Verio test strips) test twice per day blood-glucose meter (Skyepackuch Verio Flex Start kit) test twice per day cholecalciferol (vitamin D3) 25 mcg PO DAILY 90 days cyclobenzaprine 5 mg PO TID PRN 7 days empagliflozin (Jardiance) 10 mg PO DAILY 90 days fluticasone propionate 110 mcg/actuation (Flovent HFA) 1 puff PO BID 30 days gabapentin 200 mg (2 x 100 mg) PO BEDTIME 90 days insulin glargine U-300 conc (Toujeo Max U-300 SoloStar) 60 units (0.2 mL) subcut BEDTIME 90 days lancets test twice per day losartan 100 mg PO DAILY 90 days metformin 500 mg PO BID 90 days metoprolol succinate ER 100 mg PO DAILY nebulizers As directed Ventolin HFA 90 mcg/actuation (albuterol sulfate) 2 puffs inhalation Q6H PRN 30 days NS Tobacco use date assessed: 01/16/24 Fall risk assessment: 1 Fall in past year Last assessed Fall Risk: 01/16/24 Dental Screening Dental Screen Date: 01/16/24 Did you have a dental visit in the last 12 months?: Yes Did you have a dental problem in the last 6 months where you did not have access to dental care?: No Was dental information given to patient?: Patient has dentist HPI HPI Comments History of Present Illness Details This is a 73-year-old male with hypertension, pure hypercholesterolemia, chronic kidney disease stage 3 and diabetes mellitus type 2 on long-term current use of insulin that comes today for follow-up on his conditions. Blood pressure borderline normal to elevated. LDL within goal. GFR has improved from 42-46. A1c has also improved but it still elevated and I will increase Jardiance from 10 mg to 25 mg once a day. [facility] Medical History Myocardial infarction Arthritis Pulmonary nodule Cavitary pneumonia MRSA bacteremia Hypovitaminosis D Former smoker Hyperparathyroidism Annual physical exam CAD (coronary artery disease) Former smoker Obese Microalbuminuria CKD (chronic kidney disease) stage 3, GFR 30-59 ml/min [facility] (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 Son No problems noted. Son No problems noted. Son No problems noted. Social History Household Members: Spouse Housing: Apartment Do you presently have visiting nurse or other home services: Yes Alcohol intake: current Alcohol intake frequency: holidays/special occasions only Patient Tobacco Use Status: Former Tobacco user Quit Date: >35 yrs ago Tobacco use type: Cigarette e-Cigarette/Vaping Use: Never Used Second Hand Smoke Exposure: No Advance Directives Date on File: 07/30/20 service: No Current occupational status: retired Cognitive needs: No Hearing needs: No Vision needs: Yes Questionnaire PHQ-9 Over the last 2 weeks, how often have you been bothered by any of the following problems? 1. Little interest or pleasure in doing things: not at all 2. Feeling down, depressed, or hopeless: not at all 3. Trouble falling or staying asleep, or sleeping too much: not at all 4. Feeling tired or having little energy: not at all 5. Poor appetite or overeating: not at all 6. Feeling bad about yourself - or that you are a failure or have let yourself or your family down: not at all 7. Trouble concentrating on things, such as reading the newspaper or watching television: not at all 8. Moving or speaking so slowly that other people could have noticed. Or the opposite - being so fidgety or restless that you have been moving around a lot more than usual: not at all 9. Thoughts that you would be better off or of hurting yourself in some way: not at all Total score: 0 Depression Screening Interpretation: Negative Depression Screening Done: Yes 21624 - PHQ-9 Billing: Yes Source: Developed by Drs. Jose Mandujano, Yamel Weaver, Adrian Dee and colleagues, with an educational barry from [employer]. Thrive Questionnaire Date Thrive assessed: 01/16/24 I am a: Patient What is your living situation today?: I have a steady place to live Within the past 12 months, did the food you bought not last and you didn't have the money to get more?: Never true Within the past 12 months, did you worry whether your food would run out before you got money to buy more?: Never true Do you have trouble paying for medicines?: No Do you have trouble getting transportation to medical appointments?: No Do you have trouble paying your heating and electricity bill?: No Do you have trouble taking care of your child, family member or friend?: No Do you have trouble with day-to-day activities such as bathing, preparing meals, shopping, managing finances, etc.?: No Are you currently unemployed and looking for a job?: No Are you interested in more education?: No Please select the resources that you would like help with: None Currently or been in a relationship where the following occur: no concerns reported THRIVE Score: 0 AUDIT C Alcohol Use Questionnaire (AUDIT-C) 1. How often do you have a drink containing alcohol?: Monthly or less 2. How many drinks containing alcohol do you have on a typical day when you are drinking?: 1 or 2 3. How often do you have six or more drinks on one occasion?: Never Total Score: 1 Score Reviewed/Action Taken: No DAX-7 AMB Questionnaire DAX-7 Date DAX - 7 assessed: 01/16/24 Feeling nervous, anxious, or on edge: 0 = Not at all Not being able to stop or control worryin = Not at all Worrying too much about different things: 0 = Not at all Trouble relaxin = Not at all Being so restless that it is hard to sit still: 0 = Not at all Becoming easily annoyed or irritable: 0 = Not at all Feeling afraid as if something awful might happen: 0 = Not at all Total DAX-7 score (0-4 normal; 5-9 mild; 10-14 moderate; 15-21 severe): 0 Source: Developed by Drs. Jose Mandujano, Yamel Weaver, Adrian Dee and colleagues, with an educational barry from [employer]. DAX-7 Assessment Billing DAX-7 Assessment Tool: DAX-7 Assessment 38841 Review of Systems Const All systems reviewed & are unremarkable except as noted in HPI and below Eyes Reports no additional complaints, Denies change in vision and Denies other visual disturbances Card Denies chest pain at rest, Denies chest pain with activity, Denies edema, Denies irregular heart rhythm, Denies claudication, Denies dyspnea, Denies dyspnea on exertion, Denies orthopnea, Denies paroxysmal nocturnal dyspnea and Denies slow heart rate Resp Denies cough, Denies dyspnea and Denies dyspnea on exertion GI Denies abdominal pain, Denies change in bowel habits, Denies excessive flatus, Denies nausea and Denies vomiting Denies urinary hesitancy, Denies urinary incontinence and Denies urinary urgency Musc Denies abnormal gait, Denies atrophy, Denies deformity and Denies limited range of motion Skin/Breast Denies bleeding lesions, Denies changing lesions and Denies rash Neuro Denies abnormal gait and Denies lack of coordination Physical exam (Primary Care) Vital Signs: Last Vital Signs BP 140/80 H 01/16/24 10:24 BMI result Body Mass Index 27.3 Tobacco/Smoking Status: Tobacco use Status Tobacco use date assessed 01/16/24 01/16/24 10:32 Patient Tobacco Use Status Former Tobacco user 01/16/24 10:23 Tobacco use type Cigarette 01/16/24 10:23 e-Cigarette/Vaping Use Never Used 01/16/24 10:23 PHQ-9: PHQ-9 Score PHQ-9: Total score 0 01/16/24 11:10 Depression Screening Interpretation: Negative Thrive Assessment: Date of Thrive Assessment Date Thrive assessed 01/16/24 01/16/24 10:32 Currently or been in a relationship where the following occur: no concerns reported Resp Effort & Inspection: normal respiratory effort Auscultation: clear to auscultation bilaterally Cardio Jugular venous distension: no JVD Rate: regular rate Rhythm: regular rhythm Heart sounds: S1 normal heart sound present and S2 normal heart sound present Extrem General: Yes full ROM Results AMB Hemoglobin A1c AMB Hemoglobin A1c 9.7 % Last Edit by LAZARO Fletcher on 01/16/24 10:34 Results Reviewed Results Reviewed: Laboratory Last Values Hgb A1c (Clinic) 9.7 % (4.0-6.0) H 01/16/24 10:24 Assessment and Plan Assessment & Plan (1) Diabetes mellitus: Code(s): E11.9 - Type 2 diabetes mellitus without complications Qualifiers: Diabetes mellitus type: type 2 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 Continue metformin. Increase Jardiance from 10 mg to 25 mg once a day. A1c goal is equal or less than 7%. (2) Essential hypertension: Code(s): I10 - Essential (primary) hypertension Plan: Continue amlodipine and losartan. Blood pressure goal is equal or less than 130/80 (3) CKD (chronic kidney disease) stage 3, GFR 30-59 ml/min: Code(s): N18.30 - Chronic kidney disease, stage 3 unspecified Qualifiers: Chronic kidney disease stage 3 subtype: stage 3a (GFR 45-59) Qualified Code(s): N18.31 - Chronic kidney disease, stage 3a Plan: Avoid NSAIDs. Keep blood pressure within goal. (4) Pure hypercholesterolemia: Code(s): E78.00 - Pure hypercholesterolemia, unspecified Plan: Continue statins. LDL goal is less than 70. Orders: Orders AMB Hemoglobin A1c Today E11.9 - Type 2 diabetes mellitus without complications Medications: New pen needle, diabetic (1st Tier Unifine Pentips) Use 1 pen needle once a da 100 ea 1RF E11.9 - Type 2 diabetes mellitus without complications empagliflozin (Jardiance) 25 mg PO DAILY 90 days 90 tabs 3RF E11.9 - Type 2 diabetes mellitus without complications Refilled Ventolin HFA 90 mcg/actuation (albuterol sulfate) 2 puffs inhalation Q6H 30 days PRN 8 grams 3RF shortness of breath or wheezing NS J45.909 - Unspecified asthma, uncomplicated insulin glargine U-300 conc (Toujeo Max U-300 SoloStar) 60 units (0.2 mL) subcut BEDTIME 90 days 18 mL 1RF E11.9 - Type 2 diabetes mellitus without complications, Z79.4 - 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 Discontinued empagliflozin (Jardiance) Discontinued Reason: Patient Completed Course 10 mg PO DAILY 90 days 90 tabs 1RF Coding Level of Care Code Est Pt Level 4 (87572) Diagnoses Type 2 diabetes mellitus with microalbuminuria, with long-term current use of insulin E11.29; R80.9; Z79.4 Diabetes mellitus type: type 2 Diabetes mellitus marine oil terminal superintendent insulin use: with detention use Diabetes mellitus complication status: with kidney complications Diabetes mellitus complication detail: with microalbuminuria Essential hypertension I10 Stage 3a chronic kidney disease N18.31 Chronic kidney disease stage 3 subtype: stage 3a (GFR 45-59) Pure hypercholesterolemia E78.00 Additional Codes DAX-7 Assessment Billing - DAX-7 Assessment Tool: DAX-7 Assessment 22270 ([id number]) Time Spent (min) 26
[2024-01-16 10:24] VITALS: BP 140/80; BMI 27.3
[2024-01-16 11:17] VITALS: BP 138/80
== END 2024-01-16 10:48 | disposition home or self-care (01) ==
PROVIDERS: PCP Internal Medicine; Visit Provider Internal Medicine
DX: E11.22 Type 2 diabetes mellitus with diabetic chronic kidney disease (principal); I12.9 Hypertensive chronic kidney disease with stage 1 through stage 4 chronic kidney disease, or unspecified chronic kidney disease; N18.31 Chronic kidney disease, stage 3a; Z79.4 Long term (current) use of insulin; R80.9 Proteinuria, unspecified; E78.00 Pure hypercholesterolemia, unspecified
CPT/HCPCS: 83036; 99214

== ENCOUNTER 2024-01-17 18:28 | Emergency (ER) | payer OTHER, SELFPAY ==
--- NOTE | ~2024-01-17 | XR_ITS ---
EXAMINATION: XR CHEST CLINICAL INFORMATION: Cough. COMPARISON: Chest radiograph dated 11/05/2022. TECHNIQUE: Frontal view of the chest was obtained. FINDINGS: The trachea is in normal anatomic position. Heart size is normal. The lungs are clear. There is no pleural effusion or pneumothorax. No acute osseous abnormality. There are degenerative changes of the glenohumeral joints. XR/XR chest 1V IMPRESSION: No acute cardiopulmonary disease.
[2024-01-17 19:11] VITALS: BP 146/73; PULSE 70; RESP 18; TEMP 36.5; O2SAT 96; BMI 27.5
--- NOTE | 2024-01-17 19:18 | ED_ITS ---
HPI - General Adult General Chief complaint: Upper Respiratory Symptoms Stated complaint: cough Time Seen by Provider: 01/18/24 00:42 Source: patient Mode of arrival: ambulatory History of Present Illness HPI narrative: 73-year-old male who presents with nonproductive cough and nasal congestion for a few days. Related Data Home Medications Medication Instructions Recorded Confirmed nebulizers 10/28/22 01/16/24 Previous Rx's Medication Instructions Recorded albuterol sulfate 2.5 mg/3 mL 2.5 mg (3 mL) inhalation Q4-6H PRN 09/28/22 (0.083 %) solution for nebulization shortness of breath or wheezing #90 mL albuterol sulfate 90 mcg/actuation 1 inh inhalation QID PRN shortness 09/28/22 aerosol inhaler of breath or wheezing #8.5 grams cyclobenzaprine 5 mg tablet 5 mg PO TID PRN muscle spasm 7 02/24/23 days #21 tabs metformin 500 mg tablet 500 mg PO BID 90 days #180 tabs 03/10/23 fluticasone propionate 110 1 puff PO BID 30 days #12 ea 04/14/23 mcg/actuation HFA aerosol inhaler (Flovent HFA) gabapentin 100 mg capsule 200 mg (2 x 100 mg) PO BEDTIME 90 08/17/23 days #180 caps blood sugar diagnostic (OneTouch #100 ea 10/07/23 Verio test strips) blood-glucose meter (OneTouch #1 ea 10/07/23 Verio Flex Start kit) lancets 32 gauge #100 ea 10/07/23 acetaminophen 500 mg tablet 500 mg PO Q6H PRN fever or pain 10/09/23 (Tylenol Extra Strength) #14 tabs losartan 100 mg tablet 100 mg PO DAILY 90 days #90 tabs 10/23/23 cholecalciferol (vitamin D3) 25 25 mcg PO DAILY 90 days #90 caps 11/09/23 mcg (1,000 unit) capsule amlodipine 10 mg tablet 10 mg PO DAILY 90 days #90 tabs 12/02/23 atorvastatin 80 mg tablet 80 mg PO BEDTIME 90 days #90 tabs 12/02/23 metoprolol succinate 100 mg 100 mg PO DAILY #90 tabs 12/11/23 tablet,extended release 24 hr Ventolin HFA 90 mcg/actuation 2 puff inhalation Q6H PRN 01/16/24 aerosol inhaler (albuterol sulfate) shortness of breath or wheezing 30 days #8 grams empagliflozin 25 mg tablet 25 mg PO DAILY 90 days #90 tabs 01/16/24 (Jardiance) insulin glargine U-300 conc 300 60 unit (0.2 mL) subcut BEDTIME 90 01/16/24 unit/mL (3 mL) subcutaneous pen days #18 mL (Toujeo Max U-300 SoloStar) pen needle, diabetic 31 gauge x #100 ea 01/16/24 5/16 (1st Tier Unifine Pentips) Allergies Allergy/AdvReac Type Severity Reaction Status Date / Time gabapentin Allergy Mild Itching Verified 01/17/24 19:11 Review of Systems 2 Review of Systems: Pertinent positives and negatives as stated in [facility] Past Medical History Source: nursing notes reviewed Medical History Myocardial infarction Arthritis Pulmonary nodule Cavitary pneumonia MRSA bacteremia Hypovitaminosis D Former smoker Hyperparathyroidism Annual physical exam CAD (coronary artery disease) Former smoker Obese Microalbuminuria CKD (chronic kidney disease) stage 3, 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 Son No problems noted. Son No problems noted. Son No problems noted. Social History Social History Household Members: Spouse Housing: Apartment Do you presently have visiting nurse or other home services: Yes Alcohol intake: current Alcohol intake frequency: holidays/special occasions only Patient Tobacco Use Status: Former Tobacco user Quit Date: >35 yrs ago Tobacco use type: Cigarette Smoked in Last 30 Days: No e-Cigarette/Vaping Use: Never Used Second Hand Smoke Exposure: No Use of substances other than those prescribed or required for medical reasons: No Advance Directives: No Advance Directives Information Provided: No Advance Directives Date on File: 07/30/20 service: No Current occupational status: retired Cognitive needs: No Hearing needs: No Vision needs: Yes Physical Exam ED Vital Signs: Vital Signs - 24 hr 01/17/24 19:11 01/18/24 00:59 01/18/24 01:19 Temperature 97.7 F 98.2 F 98.2 F Pulse Rate 70 70 70 Respiratory Rate 18 18 18 Blood Pressure 146/73 H 137/75 137/75 Pulse Oximetry 96 93 93 Oxygen Delivery Method Room Air Room Air Room Air BMI result Body Mass Index 27.5 VITAL SIGNS: Reviewed. GENERAL: Well developed, well nourished, in no acute distress. HEAD: Normocephalic/atraumatic EYES: PERRLA, EOMI EARS: Ext canals without abnormality, TMs non-bulging and non-erythematous NOSE: Nares patent bilateral OROPHARYNX: no oral lesions noted, posterior pharynx clear and non-erythematous without noted tonsillar enlargement/erythema/exudates NECK: Supple, no adenopathy LUNGS: Normal breath sounds. No adventitious sounds or accessory muscle use. SpO2<93> CARDIOVASCULAR: Regular rate and rhythm without noted murmurs ABDOMEN: Soft, non-tender, non-distended with bowel sounds. MUSCULOSKELETAL: No tenderness, deformities, or effusions noted on gross inspection. EXTREMITIES: No cyanosis, clubbing or edema. SKIN: Inspection of the skin reveals no rashes NEUROLOGIC: Alert and oriented x 4. Strength and sensation to light touch were grossly intact x 4. Course Course Course Narrative: RME: 73-year-old male presents to the ED for asthma exacerbation. Patient states cough with wheezing. No improvement with prescribed albuterol pump. Positive for wheezing on lung exam. Labs x-ray ED bronchodilators ordered. Medical Decision Making Medical Decision Making MDM Narrative: 73-year-old male with history and clinical presentation, DDX: Viral illness, pneumonia felt to be unlikely, possible viral bronchitis. I reviewed all investigations and hematologic indices are negative for leukocytosis/left shift and there is no thrombocytopenia but patient has a stable normocytic anemia. Coagulation studies are within normal limits. Chemistry indices demonstrate a stable CKD without electrolyte or liver enzyme derangement. Viral testing positive for RSV and chest x-ray negative for infiltrative venous congestion otherwise my interpretation is in agreement with radiology's impression. All results and findings discussed with patient at bedside. Differential Diagnosis Differential Diagnoses: The differential diagnosis associated with the presentation includes Please see the discussion above Admission/Observation Consideration of admission/observation: Escalation of care including admission/observation considered Please see the discussion above Lab Data MDM Lab Attestation statement: I reviewed the patient's lab results. Please see the discussion above 01/17/24 19:31 01/17/24 19:32 Labs: Lab Results 01/17/24 01/17/24 Range/Units 19:31 19:32 WBC 7.2 (4.8-10.8) X10*3/uL RBC 4.63 (4.60-5.80) X10*6/uL Hgb 13.1 L (14.0-18.0) g/dl Hct 39.7 L (42.0-52.0) % MCV 85.7 (80.0-98.0) fL MCH 28.3 (27.0-33.0) pg MCHC 33.0 (31.0-36.0) g/dl RDW 14.4 (11.0-16.0) % Plt Count 217 (160-400) X10*3/uL MPV 11.5 (9.4-12.4) fL Immature Gran % (Auto) 0.3 (0.0-0.4) % Neut % (Auto) 50.9 (45-73) % Lymph % (Auto) 27.9 (20-40) % Tyler % (Auto) 12.4 H (2-11) % Eos % (Auto) 7.8 H (0-4) % Baso % (Auto) 0.7 (0-2) % Lymph # (Auto) 2.0 (1.2-4.9) X10*3/uL Tyler # (Auto) 0.9 (0.1-1.2) X10*3/uL Eos # (Auto) 0.6 H (0.0-0.4) X10*3/uL Baso # (Auto) 0.1 (0.0-0.2) X10*3/uL Abs Immat Gran (auto) 0.02 (0.00-0.03) X10*3/uL Absolute Neuts (auto) 3.6 (2.0-8.3) x10*3/uL Absolute Nucleated RBC 0.000 (0.0-0.012) X10*3/uL Nucleated RBC % (auto) 0.0 (0.0-0.2) /100WBC PT 10.3 L (11.1-13.3) SEC INR 0.8 L (0.9-1.1) APTT 31.2 (26.0-36.8) SEC Sodium 140 (135-145) mmol/L Potassium 4.1 (3.3-5.1) mmol/L Chloride 106 (96-108) mmol/L Carbon Dioxide 25 (22-29) mmol/L Anion Gap 13 (12-20) BUN 15 (9-16) mg/dL Creatinine 1.58 H (0.5-1.4) mg/dL Estim Creat Clear Calc 39.3 Estimated GFR 43 Random Glucose 247 H (60-115) mg/dL Calcium 9.9 (8.4-10.2) mg/dL Total Bilirubin 0.3 (0.0-1.0) mg/dL AST 21 (5-37) U/L ALT 18 (0-40) U/L Alkaline Phosphatase 151 H (39-117) U/L Troponin I High Sens 3.6 (<3.5-35.0) ng/L B-Natriuretic Peptide 16 (<100) pg/mL Total Protein 7.2 (6.5-8.0) g/dL Albumin 4.1 (3.5-5.0) g/dL Influenza Type A (PCR) NEGATIVE (Negative) Influenza Type B (PCR) NEGATIVE (Negative) RSV RNA Qual (PCR) POSITIVE A (Negative) SARS-CoV-2 RNA (RT-PCR) NEGATIVE (Negative) Radiology Impression Discussion of test interpretation with radiology: I have reviewed the radiologist's reading. Radiologist Impression: Please see the discussion above External Record Review External record reviewed: Outpatient record, Prior outpatient labs and Prior outpatient radiology Chronic Conditions Patient?s care impacted by: Diabetes and Hypertension Critical Care Time Critical Care Time Critical Care Time: Yes Total Critical Care Time: 30 Attestation: I personally attest to this time spent taking care of the patient. Discharge Plan Discharge Clinical Impression: Viral syndrome, Respiratory syncytial virus (RSV) Patient Disposition: Home, Self-Care Instructions: Respiratory Syncytial Virus (ED), Viral Syndrome (ED) Additional Instructions: 1. Resume all home medications as prescribed. 2. The natural course of this virus is approximately 5-7 days, recommend [id number] Tylenol as needed for any body aches or chest wall discomfort, recommend [id number] cough medication or your cough. 3. Please follow-up with your primary care doctor in the next 1-2 days. Return to the ER for any worsening symptoms. Prescriptions: No Action metformin 500 mg tablet 500 mg PO BID 90 Days Qty: 180 3RF gabapentin 100 mg capsule 200 mg PO BEDTIME 90 Days Qty: 180 0RF (DME) blood-glucose meter [OneTouch Verio Flex Start] Kit See Rx Instructions .Route Qty: 1 0RF Rx Instructions: test twice per day (DME) OneTouch Verio test strips Strip See Rx Instructions .Route Qty: 100 8RF Rx Instructions: test twice per day (DME) lancets 32 gauge misc See Rx Instructions .Route Qty: 100 8RF Rx Instructions: test twice per day losartan 100 mg tablet 100 mg PO DAILY 90 Days Qty: 90 1RF cholecalciferol (vitamin D3) 25 mcg (1,000 unit) capsule 25 mcg PO DAILY 90 Days Qty: 90 1RF atorvastatin 80 mg tablet 80 mg PO BEDTIME 90 Days Qty: 90 1RF amlodipine 10 mg tablet 10 mg PO DAILY 90 Days Qty: 90 1RF metoprolol succinate 100 mg tablet extended release 24 hr 100 mg PO DAILY Qty: 90 3RF albuterol sulfate 90 mcg/actuation HFA aerosol inhaler 1 inh inhalation QID PRN (Reason: shortness of breath or wheezing) Qty: 8.5 0RF albuterol sulfate 2.5 mg /3 mL (0.083 %) solution for nebulization 2.5 mg inhalation Q4-6H PRN (Reason: shortness of breath or wheezing) Qty: 90 0RF cyclobenzaprine 5 mg tablet 5 mg PO TID PRN (Reason: muscle spasm) 7 Days Qty: 21 0RF acetaminophen [Tylenol Extra Strength] 500 mg tablet 500 mg PO Q6H PRN (Reason: fever or pain) Qty: 14 0RF albuterol sulfate [Ventolin HFA] 90 mcg/actuation HFA aerosol inhaler 2 puff inhalation Q6H PRN (Reason: shortness of breath or wheezing) 30 Days Qty: 8 3RF (DME) pen needle, diabetic [1st Tier Unifine Pentips] 31 gauge x 5/16 needle See Rx Instructions .Route Qty: 100 1RF Rx Instructions: Use 1 pen needle once a da Toujeo Max U-300 SoloStar 300 unit/mL (3 mL) insulin pen 60 unit subcut BEDTIME 90 Days Qty: 18 1RF Jardiance 25 mg tablet 25 mg PO DAILY 90 Days Qty: 90 3RF Flovent HFA 110 mcg/actuation HFA aerosol inhaler 1 puff PO BID 30 Days Qty: 12 11RF (DME) nebulizers Misc See Rx Instructions .Route Rx Instructions: As directed Referrals: Rose Mary Jones MD [Primary Care Provider] - Interventions: ED Discharge Assessment Last Done: 01/18/24 01:19 Discharge Date/Time: 01/18/24 01:20
[2024-01-17 19:39] LABS: MANUAL DIFF FLAG NO
[2024-01-17 19:41] LABS: Basophils Absolute Auto 0.1 X10*3/uL (0.0-0.2); Basophils Percent Auto 0.7 % (0-2); Eosinophils Absolute Auto 0.6 X10*3/uL (0.0-0.4); Eosinophils Percent Auto 7.8 % (0-4); Hematocrit 39.7 % (42.0-52.0); Hemoglobin 13.1 g/dl (14.0-18.0); Imm Gran Abs Auto 0.02 X10*3/uL (0.00-0.03); Imm Gran Pct Auto 0.3 % (0.0-0.4); Lymphocytes Percent Auto 27.9 % (20-40); Mean Corpuscular Hemoglobin 28.3 pg (27.0-33.0); Mean Corpuscular Volume 85.7 fL (80.0-98.0); Mean Platelet Volume 11.5 fL (9.4-12.4); Monocytes Absolute Auto 0.9 X10*3/uL (0.1-1.2); Monocytes Percent Auto 12.4 % (2-11); Neutrophils Absolute Auto 3.6 x10*3/uL (2.0-8.3); Neutrophils Percent Auto 50.9 % (45-73); Platelet Count 217 X10*3/uL (160-400); Red Blood Count 4.63 X10*6/uL (4.60-5.80); Red Cell Distribution Width 14.4 % (11.0-16.0); White Blood Count 7.2 X10*3/uL (4.8-10.8)
[2024-01-17 19:46] LABS: INTERNATIONAL NORM RATIO 0.8 (0.9-1.1); Prothrombin Time 10.3 SEC (11.1-13.3)
[2024-01-17 19:49] LABS: Partial Thromboplastin Time 31.2 SEC (26.0-36.8)
[2024-01-17 20:08] LABS: Alanine Aminotransferase 18 U/L (0-40); Albumin Level 4.1 g/dL (3.5-5.0); Alkaline Phosphatase 151 U/L (39-117); Anion Gap 13 (12-20); Aspartate Amino Transferase 21 U/L (5-37); Bilirubin Total 0.3 mg/dL (0.0-1.0); Blood Urea Nitrogen 15 mg/dL (9-16); Calcium 9.9 mg/dL (8.4-10.2); Carbon Dioxide 25 mmol/L (22-29); Chloride 106 mmol/L (96-108); Creatinine Clr Calc Pharmacy 39.3; Estimated Glomerular Filt Rate 43; Glucose Random 247 mg/dL (60-115); Potassium 4.1 mmol/L (3.3-5.1); Sodium 140 mmol/L (135-145); Total Protein 7.2 g/dL (6.5-8.0)
[2024-01-17 20:15] LABS: Troponin-I High Sensitivity 3.6 ng/L (<3.5-35.0)
[2024-01-17 20:17] LABS: B Type Natriuretic Peptide 16 pg/mL (<100)
[2024-01-17 20:23] LABS: Influenza A PCR NEGATIVE (Negative); Influenza B PCR NEGATIVE (Negative); Resp Syncy Virus RNA Qual PCR POSITIVE (Negative); SARS COV2 PCR INHOUSE NEGATIVE (Negative)
[2024-01-18 00:59] VITALS: BP 137/75; PULSE 70; RESP 18; TEMP 36.8; O2SAT 93
[2024-01-18 01:19] VITALS: BP 137/75; PULSE 70; RESP 18; TEMP 36.8; O2SAT 93
== END 2024-01-18 01:20 | disposition home or self-care (01) ==
PROVIDERS: Physician Assistant; Emergency Provider Student in an Organized Health Care Education/Training Program; PCP Internal Medicine
DX: J22 Unspecified acute lower respiratory infection (principal); B97.4 Respiratory syncytial virus as the cause of diseases classified elsewhere; R06.02 Shortness of breath; R05.9 Cough, unspecified; R09.81 Nasal congestion; Z11.52 Encounter for screening for COVID-19; Z20.822 Contact with and (suspected) exposure to COVID-19
CPT/HCPCS: 0241U; 71045; 80053; 83880; 84484; 85025; 85610; 85730; 99284

== ENCOUNTER 2024-04-11 06:20 | Outpatient (REF) | payer OTHER, SELFPAY ==
[2024-04-11 06:38] LABS: MANUAL DIFF FLAG NO
[2024-04-11 07:56] LABS: Basophils Absolute Auto 0.1 X10*3/uL (0.0-0.2); Basophils Percent Auto 0.7 % (0-2); Eosinophils Absolute Auto 0.3 X10*3/uL (0.0-0.4); Eosinophils Percent Auto 3.9 % (0-4); Hematocrit 38.8 % (42.0-52.0); Hemoglobin 12.7 g/dl (14.0-18.0); Imm Gran Abs Auto 0.02 X10*3/uL (0.00-0.03); Imm Gran Pct Auto 0.3 % (0.0-0.4); Lymphocytes Absolute Auto 2.7 X10*3/uL (1.2-4.9); Lymphocytes Percent Auto 39.2 % (20-40); Mean Corpuscular HGB Conc 32.7 g/dl (31.0-36.0); Mean Corpuscular Hemoglobin 28.2 pg (27.0-33.0); Mean Platelet Volume 11.8 fL (9.4-12.4); Monocytes Absolute Auto 0.9 X10*3/uL (0.1-1.2); Monocytes Percent Auto 12.7 % (2-11); Neutrophils Percent Auto 43.2 % (45-73); Platelet Count 295 X10*3/uL (160-400); Red Blood Count 4.51 X10*6/uL (4.60-5.80); Red Cell Distribution Width 14.9 % (11.0-16.0)
[2024-04-11 08:27] LABS: Appearance Urine Clear; Color Urine Yellow; Glucose Urine UA >=1000 mg/dL (Negative); Leukocyte Esterase Urine Negative (Negative); Nitrite Urine Negative (Negative); PH 5.5 (5.0-9.0); Specific Gravity - Urine >= 1.030 (1.005-1.025); UMIC TRIGGER UACC YES; Urine Blood Negative (Negative); Urine Ketones Negative (Negative); Urine Protein Trace mg/dL (Neg-Trace)
[2024-04-11 08:30] LABS: Bacteria Urine None Seen (None Seen); Hyaline Casts Urine 0-2 /LPF (0-2); RBC Urine 0-2 /HPF (0-2); Squamous Epithelial Cell Urine 0-2 /HPF (0-2); WBC Urine 0-5 /HPF (0-5)
== END 2024-04-11 06:21 | disposition home or self-care (01) ==
LOC: HO.LAB 06:20
PROVIDERS: Internal Medicine Gastroenterology; PCP Internal Medicine; Visit Provider Internal Medicine
DX: R30.0 Dysuria (principal); D63.8 Anemia in other chronic diseases classified elsewhere
CPT/HCPCS: 36415; 81001; 85025

== ENCOUNTER 2024-04-18 08:09 | Outpatient (AMB) | payer OTHER, SELFPAY ==
--- NOTE | 2024-04-18 08:15 | MHC.PC.OV ---
Vital Signs 04/18/24 08:17 Height 5 ft 5 in Weight 165 lb BMI 27.5 BP 130/62 Blood Pressure Location Lt brachial Position Sitting Intake Visit Reasons: PE - see comments Intake Note: Patient here for a physical exam Refractory Manager Required: No Accompanied by: Self / Same As Patient Allergies gabapentin Allergy (Mild, Verified 04/18/24 08:37) Itching Medication List - Last Reconciled 04/18/24 by Rose Mary Mcneill MD acetaminophen (Tylenol Extra Strength) 500 mg PO Q6H PRN albuterol sulfate 90 mcg/actuation 1 inh inhalation QID PRN albuterol sulfate 2.5 mg (3 mL) inhalation Q4-6H PRN amlodipine 10 mg PO DAILY 90 days atorvastatin 80 mg PO BEDTIME 90 days blood sugar diagnostic ([employer] Verio test strips) test twice per day blood-glucose meter (NCLC Verio Flex Start kit) test twice per day cholecalciferol (vitamin D3) 25 mcg PO DAILY 90 days cyclobenzaprine 5 mg PO TID PRN 7 days empagliflozin (Jardiance) 25 mg PO DAILY 90 days fluticasone propionate 110 mcg/actuation (Flovent HFA) 1 puff PO BID 30 days gabapentin 200 mg (2 x 100 mg) PO BEDTIME 90 days insulin glargine U-300 conc (Toujeo Max U-300 SoloStar) 60 units (0.2 mL) subcut BEDTIME 90 days lancets test twice per day losartan 100 mg PO DAILY 90 days metformin 500 mg PO BID 90 days metoprolol succinate ER 100 mg PO DAILY nebulizers As directed pen needle, diabetic (1st Tier Unifine Pentips) Use 1 pen needle once a da Ventolin HFA 90 mcg/actuation (albuterol sulfate) 2 puffs inhalation Q6H PRN 30 days NS Tobacco use date assessed: 01/16/24 Fall risk assessment: No Falls in past year Last assessed Fall Risk: 04/18/24 Dental Screening Dental Screen Date: 01/16/24 HPI HPI Comments History of Present Illness Details This is a 73-year-old male with diabetes mellitus type 2 on long-term current use of insulin with hyperglycemia, chronic kidney disease stage 3 and 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 A1c within goal. Diabetic eye exam up-to-date. Last colonoscopy was 2022. I will refer him to Nephrology for chronic kidney disease. No chest pain or shortness on breath. 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 Son No problems noted. Son No problems noted. Son No problems noted. Social History (Updated 04/18/24 @ 08:43 by Rose Mary Mcneill MD) Household Members: Spouse Housing: Apartment Do you presently have visiting nurse or other home services: Yes Alcohol intake: former Patient Tobacco Use Status: Former Tobacco user Tobacco use type: Cigarette e-Cigarette/Vaping Use: Never Used Second Hand Smoke Exposure: No Advance Directives Date on File: 07/30/20 service: No Current occupational status: retired Cognitive needs: No Hearing needs: No Vision needs: Yes Questionnaire Thrive Questionnaire Date Thrive assessed: 01/16/24 DAX-7 AMB Questionnaire DAX-7 Date DAX - 7 assessed: 01/16/24 Source: Developed by Drs. Jose Mandujano, Yamel Weaver, Adrian Dee and colleagues, with an educational barry from [employer]. Review of Systems Const All systems reviewed & are unremarkable except as noted in HPI and below Card Denies chest pain at rest, Denies chest pain with activity, Denies edema, Denies irregular heart rhythm, Denies claudication, Denies dyspnea, Denies dyspnea on exertion, Denies orthopnea, Denies paroxysmal nocturnal dyspnea and Denies slow heart rate Resp Denies cough, Denies dyspnea and Denies dyspnea on exertion Skin/Breast Denies bleeding lesions, Denies changing lesions and Denies rash Neuro Denies lack of coordination Physical exam (Primary Care) Vital Signs: Last Vital Signs BP 130/62 04/18/24 08:17 BMI result Body Mass Index 27.5 Tobacco/Smoking Status: Tobacco use Status Tobacco use date assessed 01/16/24 04/18/24 08:16 Patient Tobacco Use Status Former Tobacco user 04/18/24 08:16 Tobacco use type Cigarette 04/18/24 08:16 e-Cigarette/Vaping Use Never Used 04/18/24 08:16 Thrive Assessment: Date of Thrive Assessment Date Thrive assessed 01/16/24 04/18/24 08:16 Const Orientation/consciousness: patient oriented x3 HENMT Head: Yes normal to inspection, Yes normocephalic and Yes atraumatic Ears: external ears normal Eyes General: appearance normal, both eyes and all related structures Eyelids: Yes eyelids normal Conjunctivae: conjunctivae normal Neck Neck: Yes normal visual inspection and Yes supple Resp Effort & Inspection: normal respiratory effort Auscultation: clear to auscultation bilaterally Cardio Jugular venous distension: no JVD Rate: regular rate Rhythm: regular rhythm Heart sounds: S1 normal heart sound present and S2 normal heart sound present GI Inspection: Yes normal to inspection Palpation (GI): Soft to palpation and nontender Auscultation: normal bowel sounds Skin General skin exam: no rashes or lesions noted Neuro General: patient oriented x3 and no focal motor deficits Extrem General: Yes full ROM Psych Appearance: grossly normal Results AMB Hemoglobin A1c AMB Hemoglobin A1c 8.2 % Last Edit by LAZARO Fletcher on 04/18/24 08:24 Results Reviewed Results Reviewed: Laboratory Last Values Hgb A1c (Clinic) 8.2 % (4.0-6.0) H 04/18/24 08:14 Assessment and Plan Assessment & Plan (1) Physical exam: Code(s): Z00.00 - Encounter for general adult medical examination without abnormal findings Plan: Repeat in a year. (2) CKD (chronic kidney disease) stage 3, GFR 30-59 ml/min: Code(s): N18.30 - Chronic kidney disease, stage 3 unspecified Qualifiers: Chronic kidney disease stage 3 subtype: stage 3a (GFR 45-59) Qualified Code(s): N18.31 - Chronic kidney disease, stage 3a Plan: Referred to nephrology. Avoid NSAIDs. Keep blood pressure within goal. (3) Diabetes mellitus: Code(s): E11.9 - Type 2 diabetes mellitus without complications Qualifiers: Diabetes mellitus type: type 2 Diabetes mellitus assisted insulin use: with middle or intermediate school principal use Diabetes mellitus complication status: with kidney complications Diabetes mellitus complication detail: with microalbuminuria Qualified Code(s): E11.29 - Type 2 diabetes mellitus with other diabetic kidney complication; R80.9 - Proteinuria, unspecified; Z79.4 - penitentiary (current) use of insulin Plan: Increase insulin. A1c goal is equal or less than 7%. (4) medical terminologist (current) use of insulin: Code(s): Z79.4 - medical terminologist (current) use of insulin Plan: Increase insulin. Continue metformin. 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 Code(s): E21.3 - Hyperparathyroidism, unspecified Plan: Repeat PTH. Orders: Orders Vitamin D 25-OH Total 4 Months E55.9 - Vitamin D deficiency, unspecified IRON PROFILE 4 Months D64.9 - Anemia, unspecified Parathyroid Hormone Intact Today E21.3 - Hyperparathyroidism, unspecified Phosphorus Today E21.3 - Hyperparathyroidism, unspecified AMB Hemoglobin A1c Today E11.29 - Type 2 diabetes mellitus with other diabetic kidney complication, R80.9 - Proteinuria, unspecified, Z79.4 - penitentiary (current) use of insulin Lipid Panel Today E78.5 - Hyperlipidemia, unspecified Microalbumin, Random (w Creat) 4 Months E11.9 - Type 2 diabetes mellitus without complications Complete Blood Count Auto Diff 4 Months D64.9 - Anemia, unspecified [place]. Panel Fast 4 Months E11.29 - Type 2 diabetes mellitus with other diabetic kidney complication, R80.9 - Proteinuria, unspecified, Z79.4 - medical terminologist (current) use of insulin Vitamin D 25-OH Total Today E55.9 - Vitamin D deficiency, unspecified Calcium, Ionized Today E21.3 - Hyperparathyroidism, unspecified Referrals Nephrology Referral N18.31 - Chronic kidney disease, stage 3a Coding Level of Care Code Est Pt Prev Care >65y(05201) Diagnoses Physical exam Z00.00 Stage 3a chronic kidney disease N18.31 Chronic kidney disease stage 3 subtype: stage 3a (GFR 45-59) Type 2 diabetes mellitus with microalbuminuria, with long-term current use of insulin E11.29; R80.9; Z79.4 Diabetes mellitus type: type 2 Diabetes mellitus assisted insulin use: with middle or intermediate school principal use Diabetes mellitus complication status: with kidney complications Diabetes mellitus complication detail: with microalbuminuria medical terminologist (current) use of insulin Z79.4 Hyperparathyroidism E21.3 Time Spent (min) 32
[2024-04-18 08:17] VITALS: BP 130/62; BMI 27.5
== END 2024-04-18 08:50 | disposition home or self-care (01) ==
PROVIDERS: PCP Internal Medicine; Visit Provider Internal Medicine
DX: Z00.00 Encounter for general adult medical examination without abnormal findings (principal); N18.31 Chronic kidney disease, stage 3a; E11.29 Type 2 diabetes mellitus with other diabetic kidney complication; Z79.4 Long term (current) use of insulin; E21.3 Hyperparathyroidism, unspecified; R80.9 Proteinuria, unspecified
CPT/HCPCS: 83036; 99397

== ENCOUNTER 2024-04-24 11:35 | Outpatient (AMB) | payer OTHER, SELFPAY ==
[2024-04-24 11:38] VITALS: BP 138/70; PULSE 64; O2SAT 97; BMI 27.5
--- NOTE | 2024-04-24 11:38 | HO.NEPHOV_ITS ---
Vital Signs 04/24/24 11:38 Height 5 ft 5 in Weight 165 lb BMI 27.5 BP 138/70 Blood Pressure Location Rt brachial Position Sitting Pulse 64 Pulse Source Pulse Oximeter Pulse Oximetry (%) 97 Oxygen Delivery Method Room Air Intake Visit Reasons: CKD stage 3/ LVM Insect Control Aide Required: Yes Insect Control Aide Name: Kaci [id number] Accompanied by: Self / Same As Patient Allergies gabapentin Allergy (Mild, Verified 04/24/24 11:40) Itching Medication List - Last Reconciled 04/24/24 by Maikol Davis MD acetaminophen (Tylenol Extra Strength) 500 mg PO Q6H PRN albuterol sulfate 2.5 mg (3 mL) inhalation Q4-6H PRN atorvastatin 40 mg PO DAILY blood sugar diagnostic (Jolanceruch Verio test strips) test twice per day blood-glucose meter (Techfoo Verio Flex Start kit) test twice per day cholecalciferol (vitamin D3) 25 mcg PO DAILY 90 days empagliflozin (Jardiance) 25 mg PO DAILY 90 days fluticasone propionate 110 mcg/actuation (Flovent HFA) 1 puff PO BID 30 days gabapentin 200 mg (2 x 100 mg) PO BEDTIME 90 days insulin glargine U-300 conc (Toujeo Max U-300 SoloStar) 65 units subcut BEDTIME lancets test twice per day losartan 100 mg PO DAILY 90 days metformin 500 mg PO BID 90 days metoprolol succinate ER 100 mg PO DAILY nebulizers As directed pen needle, diabetic (1st Tier Unifine Pentips) Use 1 pen needle once a da Ventolin HFA 90 mcg/actuation (albuterol sulfate) 2 puffs inhalation Q6H PRN 30 days NS HPI Comments Details: Kinga Moffett is a 74 man with a history of longstanding diabetes mellitus. He has history of CKD with a baseline creatinine between 1.3 and 1.6 mg/dL. He has had few episodes of mild JOHN s He has been referred for evaluation of CKD. 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 Son No problems noted. Son No problems noted. Son No problems noted. Social History Household Members: Spouse Housing: Apartment Do you presently have visiting nurse or other home services: Yes Alcohol intake: former Patient Tobacco Use Status: Former Tobacco user Tobacco use type: Cigarette e-Cigarette/Vaping Use: Never Used Second Hand Smoke Exposure: No Advance Directives Date on File: 07/30/20 service: No Current occupational status: retired Cognitive needs: No Hearing needs: No Vision needs: Yes Review of Systems Const Reports as per HPI, Denies anorexia, Denies fatigue, Denies fever(s) and Denies headache(s) Eyes Denies blurry vision ENT Denies headache(s) Card Denies chest pain, Denies pedal edema and Denies dyspnea Resp Denies cough, Denies hemoptysis and Denies dyspnea GI Denies diarrhea, Denies nausea and Denies vomiting Denies hematuria, Denies urinary frequency and Denies urinary hesitancy Neuro Denies confusion, Denies headache(s) and Denies focal weakness Psych Denies confusion Endo Denies cold intolerance, Denies fatigue and Denies polyuria Physical Exam Vital Signs: Last Vital Signs Pulse 64 04/24/24 11:38 BP 138/70 04/24/24 11:38 Pulse Ox 97 04/24/24 11:38 Oxygen Delivery Method Room Air 04/24/24 11:38 BMI result Body Mass Index 27.5 Const General: No confusion Orientation/consciousness: No confusion Eyes General: appearance normal, both eyes and all related structures Visual Long: normal visual long by confrontation Neck Neck: Yes supple and Yes no JVD Resp Effort & Inspection: normal respiratory effort and respiratory effort not decreased Auscultation: rhonchi Cardio Palpation: no palpable S3 and no palpable S4 Heart sounds: no rubs GI Inspection: Yes normal to inspection Palpation (GI): Soft to palpation Percussion: Yes normal to percussion Auscultation: normal bowel sounds General: Yes no CVA tenderness Back/Spine/Pelvis Back: no CVA tenderness Skin General skin exam: no petechiae and no purpura Neuro General: No confusion Extrem General: No clubbing and No edema Results Reviewed Nephrology Results: Hgb 12.7 g/dl (14.0-18.0) L 04/11/24 WBC 7.0 X10*3/uL (4.8-10.8) 04/11/24 Plt Count 295 X10*3/uL (160-400) 04/11/24 Sodium 140 mmol/L (135-145) 01/17/24 Potassium 4.1 mmol/L (3.3-5.1) 01/17/24 Chloride 106 mmol/L (96-108) 01/17/24 Carbon Dioxide 25 mmol/L (22-29) 01/17/24 BUN 15 mg/dL (9-16) 01/17/24 Creatinine 1.58 mg/dL (0.5-1.4) H 01/17/24 Calcium 9.9 mg/dL (8.4-10.2) 01/17/24 Urine Protein Trace mg/dL (Neg-Trace) 04/11/24 Urine Creatinine 186.70 mg/dL 01/10/24 Assessment & Plan Assessment & Plan (1) CKD (chronic kidney disease) stage 3, GFR 30-59 ml/min: Code(s): N18.30 - Chronic kidney disease, stage 3 unspecified Category: Medical Qualifiers: Chronic kidney disease stage 3 subtype: stage 3a (GFR 45-59) Qualified Code(s): N18.31 - Chronic kidney disease, stage 3a Plan Zuhair and CKD 3 in a setting of longstanding hypertension diabetes mellitus. He is minimal proteinuria. Urine microalbumin creatinine ratio was 71. Overall renal function stable. Goal is to slow the portion disease. Agree with NATACHA inhibition along with SGLT2 inhibitors to slow the progression of renal disease. Blood pressure be maintained less than 130/80. Currently blood pressure is acceptable. We discussed importance of tight control of blood sugar and to maintain A1c less than 7%. Encouraged him to increase physical activities Continue with low-sodium diet. I have initiated a basic workup and we will continue to follow him along with the team Orders: Orders Creatinine Urine Today Maikol Davis MD N18.31 - Chronic kidney disease, stage 3a Total Protein Urine Random Today Maikol Davis MD N18.31 - Chronic kidney disease, stage 3a US renal BI Today Maikol Davis MD N18.31 - Chronic kidney disease, stage 3a Complete Blood Count Auto Diff Today Maikol Davis MD N18.31 - Chronic kidney disease, stage 3a Parathyroid Hormone Intact Today Maikol Davis MD N18.31 - Chronic kidney disease, stage 3a Comprehensive Met. Panel Today Maikol Davis MD N18.31 - Chronic kidney disease, stage 3a UA and rflx microscopic Today Maikol Davis MD N18.31 - Chronic kidney disease, stage 3a Vitamin D 25-OH (D2 and D3) Today Maikol Davis MD N18.31 - Chronic kidney disease, stage 3a Hemoglobin A1c Today Maikol Davis MD N18.31 - Chronic kidney disease, stage 3a Medications: Changed From insulin glargine U-300 conc (Toujeo Max U-300 SoloStar) 60 units (0.2 mL) subcut BEDTIME 90 days 18 mL 1RF E11.9 - Type 2 diabetes mellitus without complications, Z79.4 - [facility] (current) use of insulin To insulin glargine U-300 conc (Toujeo Max U-300 SoloStar) 65 units subcut BEDTIME E11.9 - Type 2 diabetes mellitus without complications, Z79.4 - [facility] (current) use of insulin Rose Mary Mcneill MD Coding Level of Care Code New Pt Level 4 (48898) Diagnoses Stage 3a chronic kidney disease N18.31 Chronic kidney disease stage 3 subtype: stage 3a (GFR 45-59)
== END 2024-04-24 11:59 | disposition home or self-care (01) ==
PROVIDERS: PCP Internal Medicine; Referring Provider Internal Medicine; Visit Provider Internal Medicine Hypertension Specialist
DX: N18.31 Chronic kidney disease, stage 3a (principal)
CPT/HCPCS: 99204

== ENCOUNTER → 2024-04-24 11:35 | Outpatient (BNVA) | payer OTHER, SELFPAY | PROVIDERS: PCP Internal Medicine; Referring Provider Internal Medicine; Visit Provider Internal Medicine Hypertension Specialist | DX: E11.22 Type 2 diabetes mellitus with diabetic chronic kidney disease (principal); N18.31 Chronic kidney disease, stage 3a; Z79.4 Long term (current) use of insulin | CPT/HCPCS: 99202 ==

== ENCOUNTER 2024-05-04 12:27 | Outpatient (REF) | payer OTHER, SELFPAY ==
--- NOTE | ~2024-05-04 | US_ITS ---
EXAMINATION: US RETROPERITONEAL LIMITED (RENAL ONLY) CLINICAL INFORMATION: Chronic kidney disease, stage IIIa. COMPARISON: CT abdomen and pelvis 10/04/2022. Renal ultrasound 10/15/2020. Ultrasound abdomen 04/19/2017. TECHNIQUE: Real-time imaging of the kidneys. Limited visualization due to bowel gas. FINDINGS: RIGHT KIDNEY: 10.5 x 5.2 x 4.1 cm (SAG x AP x TRV). No hydronephrosis. No renal calculi. Renal cortical thickness is normal. Limited visualization. Multiple renal cysts. Largest cyst with benign features measures 1.9 cm, lower pole. There is no indication for additional imaging. LEFT KIDNEY: 10.0 x 5.0 x 3.8 cm (SAG x AP x TRV). No hydronephrosis. No renal calculi. Renal cortical thickness is normal. Limited visualization. Multiple renal cysts. Largest cyst with benign features measures 1.0 cm mid pole. There is no indication for additional imaging. US/US renal BI IMPRESSION: No hydronephrosis. No renal calculi.
== END 2024-05-04 12:28 | disposition home or self-care (01) ==
LOC: HO.US 12:27
PROVIDERS: PCP Internal Medicine; Visit Provider Internal Medicine Hypertension Specialist
DX: N18.31 Chronic kidney disease, stage 3a (principal)
CPT/HCPCS: 76775

== ENCOUNTER 2024-05-21 06:26 | Outpatient (REF) | payer OTHER, SELFPAY ==
[2024-05-21 06:46] LABS: MANUAL DIFF FLAG NO
[2024-05-21 07:32] LABS: Basophils Absolute Auto 0.1 X10*3/uL (0.0-0.2); Basophils Percent Auto 0.7 % (0-2); Eosinophils Absolute Auto 0.4 X10*3/uL (0.0-0.4); Eosinophils Percent Auto 4.8 % (0-4); Hematocrit 38.8 % (42.0-52.0); Hemoglobin 12.6 g/dl (14.0-18.0); Imm Gran Abs Auto 0.02 X10*3/uL (0.00-0.03); Imm Gran Pct Auto 0.3 % (0.0-0.4); Lymphocytes Absolute Auto 2.7 X10*3/uL (1.2-4.9); Mean Corpuscular HGB Conc 32.5 g/dl (31.0-36.0); Mean Corpuscular Hemoglobin 27.8 pg (27.0-33.0); Mean Corpuscular Volume 85.7 fL (80.0-98.0); Mean Platelet Volume 11.3 fL (9.4-12.4); Monocytes Absolute Auto 0.9 X10*3/uL (0.1-1.2); Monocytes Percent Auto 12.6 % (2-11); Neutrophils Absolute Auto 3.4 x10*3/uL (2.0-8.3); Neutrophils Percent Auto 45.6 % (45-73); Platelet Count 295 X10*3/uL (160-400); Red Blood Count 4.53 X10*6/uL (4.60-5.80); Red Cell Distribution Width 14.6 % (11.0-16.0); White Blood Count 7.4 X10*3/uL (4.8-10.8)
[2024-05-21 07:53] LABS: Alanine Aminotransferase 17 U/L (0-40); Albumin Level 4.1 g/dL (3.5-5.0); Alkaline Phosphatase 143 U/L (39-117); Anion Gap 11 (12-20); Aspartate Amino Transferase 18 U/L (5-37); Bilirubin Total 0.4 mg/dL (0.0-1.0); Blood Urea Nitrogen 19 mg/dL (9-16); Calcium 9.8 mg/dL (8.4-10.2); Carbon Dioxide 26 mmol/L (22-29); Chloride 109 mmol/L (96-108); Cholesterol 116 mg/dL (<200); Estimated Glomerular Filt Rate 48; Glucose Random 97 mg/dL (60-115); HDL Cholesterol 35 mg/dL (>40); LDL Cholesterol Calculated 60 mg/dL (<100); Phosphorus 3.7 mg/dL (2.7-4.5); Sodium 142 mmol/L (135-145); Total Protein 6.7 g/dL (6.5-8.0); Triglycerides 107 mg/dL (<150)
[2024-05-21 07:54] LABS: Estimated Average Glucose 235 mg/dL; Hemoglobin A1c % 9.8 % (<6.0)
[2024-05-21 08:04] LABS: Parathyroid Hormone Intact 131.2 pg/mL (8.7-77.1)
[2024-05-21 08:14] LABS: Vitamin D 25-OH Total 34.8 ng/mL (>30)
[2024-05-21 08:53] LABS: Appearance Urine Clear; Color Urine Yellow; Glucose Urine UA >=1000 mg/dL (Negative); Leukocyte Esterase Urine Negative (Negative); Nitrite Urine Negative (Negative); PH 5.5 (5.0-9.0); Specific Gravity - Urine >= 1.030 (1.005-1.025); UMIC TRIGGER UA YES; Urine Blood Negative (Negative); Urine Ketones Negative (Negative); Urine Protein Trace mg/dL (Neg-Trace)
[2024-05-21 08:59] LABS: Bacteria Urine None Seen (None Seen); Hyaline Casts Urine 0-2 /LPF (0-2); RBC Urine 0-2 /HPF (0-2); Squamous Epithelial Cell Urine 0-2 /HPF (0-2); WBC Urine 0-5 /HPF (0-5)
[2024-05-21 09:21] LABS: Creatinine Urine 111.15 mg/dL; Total Protein Urine Random 20 mg/dL (<12)
[2024-05-23 13:08] LABS: Calcium, Ionized 5.3 mg/dL (4.7-5.5)
[2024-05-25 12:33] LABS: Vitamin D 25-OH, D2 <4 ng/mL; Vitamin D 25-OH, D3 28 ng/mL; Vitamin D 25-OH, Total 28 ng/mL (30-100)
== END 2024-05-21 06:27 | disposition home or self-care (01) ==
LOC: HO.LAB 06:26
PROVIDERS: PCP Internal Medicine; Visit Provider Internal Medicine Hypertension Specialist
DX: N18.31 Chronic kidney disease, stage 3a (principal); E21.3 Hyperparathyroidism, unspecified; E78.5 Hyperlipidemia, unspecified; E55.9 Vitamin D deficiency, unspecified; Z13.1 Encounter for screening for diabetes mellitus
CPT/HCPCS: 36415; 80053; 80061; 81001; 82306; 82330; 82570; 83036; 83970; 84100; 84156; 85025

== ENCOUNTER 2024-05-24 11:28 | Outpatient (AMB) | payer OTHER, SELFPAY ==
[2024-05-24 11:33] VITALS: BP 110/64; PULSE 63; O2SAT 96; BMI 27.6
--- NOTE | 2024-05-24 11:33 | HO.NEPHOV_ITS ---
Vital Signs 05/24/24 11:33 Height 5 ft 5 in Weight 166 lb BMI 27.6 BP 110/64 Blood Pressure Location Rt brachial Position Sitting Pulse 63 Pulse Source Pulse Oximeter Pulse Oximetry (%) 96 Oxygen Delivery Method Room Air Intake Visit Reasons: CKD/ Conf Topographical Engineer Required: Yes Topographical Engineer Name: Saleem [id number] Accompanied by: Self / Same As Patient Allergies gabapentin Allergy (Mild, Verified 05/24/24 11:36) Itching Medication List - Last Reconciled 05/24/24 by Maikol Davis MD acetaminophen (Tylenol Extra Strength) 500 mg PO Q6H PRN albuterol sulfate 2.5 mg (3 mL) inhalation Q4-6H PRN atorvastatin 40 mg PO DAILY 90 days blood sugar diagnostic ([employer] Gaming Verio test strips) test twice per day blood-glucose meter ([employer] Verio Flex Start kit) test twice per day cholecalciferol (vitamin D3) 25 mcg PO DAILY 90 days empagliflozin (Jardiance) 25 mg PO DAILY 90 days fluticasone propionate 110 mcg/actuation (Flovent HFA) 1 puff PO BID 30 days gabapentin 200 mg (2 x 100 mg) PO BEDTIME 90 days insulin glargine U-300 conc (Toujeo Max U-300 SoloStar) 65 units subcut BEDTIME lancets test twice per day losartan 100 mg PO DAILY 90 days metformin 500 mg PO BID 90 days metoprolol succinate ER 100 mg PO DAILY nebulizers As directed pen needle, diabetic (1st Tier Unifine Pentips) Use 1 pen needle once a da Ventolin HFA 90 mcg/actuation (albuterol sulfate) 2 puffs inhalation Q6H PRN 30 days NS HPI Comments Details: Kinga Moffett is a 74 man with a history of longstanding diabetes mellitus. He has history of CKD with a baseline creatinine between 1.3 and 1.6 mg/dL. He has had few episodes of mild JOHN s He has been referred for evaluation of CKD. 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 Son No problems noted. Son No problems noted. Son No problems noted. Social History Household Members: Spouse Housing: Apartment Do you presently have visiting nurse or other home services: Yes Alcohol intake: former Patient Tobacco Use Status: Former Tobacco user Tobacco use type: Cigarette e-Cigarette/Vaping Use: Never Used Second Hand Smoke Exposure: No Advance Directives Date on File: 07/30/20 service: No Current occupational status: retired Cognitive needs: No Hearing needs: No Vision needs: Yes Physical Exam Vital Signs: Last Vital Signs Pulse 63 05/24/24 11:33 BP 110/64 05/24/24 11:33 Pulse Ox 96 05/24/24 11:33 Oxygen Delivery Method Room Air 05/24/24 11:33 BMI result Body Mass Index 27.6 Const General: comfortable; No acute distress Orientation/consciousness: patient oriented x3 Eyes General: appearance normal, both eyes and all related structures Visual Long: normal visual long by confrontation Neck Neck: Yes supple and Yes no JVD Resp Effort & Inspection: normal respiratory effort and respiratory effort not decreased Auscultation: rhonchi Cardio Palpation: no palpable S3 and no palpable S4 Heart sounds: no rubs GI Inspection: Yes normal to inspection Palpation (GI): Soft to palpation Percussion: Yes normal to percussion Auscultation: normal bowel sounds General: Yes no CVA tenderness Back/Spine/Pelvis Back: no CVA tenderness Skin General skin exam: no petechiae and no purpura Neuro General: patient oriented x3 and no focal motor deficits Extrem General: No clubbing and No edema Results Reviewed Nephrology Results: Hgb 12.6 g/dl (14.0-18.0) L 05/21/24 WBC 7.4 X10*3/uL (4.8-10.8) 05/21/24 Plt Count 295 X10*3/uL (160-400) 05/21/24 Sodium 142 mmol/L (135-145) 05/21/24 Potassium 4.0 mmol/L (3.3-5.1) 05/21/24 Chloride 109 mmol/L (96-108) H 05/21/24 Carbon Dioxide 26 mmol/L (22-29) 05/21/24 BUN 19 mg/dL (9-16) H 05/21/24 Creatinine 1.45 mg/dL (0.5-1.4) H 05/21/24 Calcium 9.8 mg/dL (8.4-10.2) 05/21/24 Phosphorus 3.7 mg/dL (2.7-4.5) 05/21/24 PTH Intact 131.2 pg/mL (8.7-77.1) H 05/21/24 Urine Protein Trace mg/dL (Neg-Trace) 05/21/24 Urine Creatinine 111.15 mg/dL 05/21/24 Renal US 05/04/24 Assessment & Plan Assessment & Plan (1) CKD (chronic kidney disease) stage 3, GFR 30-59 ml/min: Code(s): N18.30 - Chronic kidney disease, stage 3 unspecified Category: Medical Qualifiers: Chronic kidney disease stage 3 subtype: stage 3a (GFR 45-59) Qualified Code(s): N18.31 - Chronic kidney disease, stage 3a Plan Zuhair and CKD 3 in a setting of longstanding hypertension diabetes mellitus. He is minimal proteinuria. Urine microalbumin creatinine ratio was 71. Overall renal function stable. Goal is to slow the portion disease. Agree with NATACHA inhibition along with SGLT2 inhibitors to slow the progression of renal disease. Blood pressure be maintained less than 130/80. Currently blood pressure is acceptable. We discussed importance of tight control of blood sugar and to maintain A1c less than 7%. Encouraged him to increase physical activities Continue with low-sodium diet. Intact PTH is 131 He has mild secondary hyperparathyroidism. Serum calcium normal She will monitor for now. Orders: Orders Creatinine Urine 4 Months N106.23 - Chronic kidney disease, stage 3a Basic Metabolic Panel 4 Months N106.23 - Chronic kidney disease, stage 3a Total Protein Urine Random 4 Months N106.23 - Chronic kidney disease, stage 3a Coding Level of Care Code Est Pt Level 4 (01384) Diagnoses Stage 3a chronic kidney disease N18.31 Chronic kidney disease stage 3 subtype: stage 3a (GFR 45-59)
== END 2024-05-24 11:43 | disposition home or self-care (01) ==
PROVIDERS: PCP Internal Medicine; Visit Provider Internal Medicine Hypertension Specialist
DX: N18.31 Chronic kidney disease, stage 3a (principal)
CPT/HCPCS: 99214

== ENCOUNTER → 2024-05-24 11:28 | Outpatient (BNVA) | payer OTHER, SELFPAY | PROVIDERS: PCP Internal Medicine; Visit Provider Internal Medicine Hypertension Specialist | DX: N18.31 Chronic kidney disease, stage 3a (principal) | CPT/HCPCS: 99212 ==

== ENCOUNTER 2024-06-11 09:40 | Outpatient (AMB) | payer OTHER, SELFPAY ==
--- NOTE | 2024-06-11 09:43 | A.OFFVIS_ITS ---
Vital Signs 06/11/24 09:49 Height 5 ft 5 in Weight 165 lb 5.547 oz BMI 27.5 BP 130/72 Blood Pressure Location Rt brachial Position Sitting Pulse 53 Pulse Source Pulse Oximeter Intake Visit Reasons: DM/CONFIRMED Intake Note: New patient presents today to establish treatment for Type 2 Diabetes Mellitus: Last Diabetic Eye exam: DUE, appt coming up this month. Last Podiatry Visit: Does not see a Meter Reader Inspector Random Glucose: 138mg/dL, Today Most recent HgA1c: 9.8% 05/21/24 Lead Software Developer Required: Yes Lead Software Developer Language: Swazi Accompanied by: Self / Same As Patient Allergies gabapentin Allergy (Mild, Verified 06/11/24 09:50) Itching Medication List - Last Reconciled 06/11/24 by Vita Guido PA-C acetaminophen (Tylenol Extra Strength) 500 mg PO Q6H PRN albuterol sulfate 2.5 mg (3 mL) inhalation Q4-6H PRN atorvastatin 40 mg PO DAILY 90 days blood sugar diagnostic (OneTouch Verio test strips) test twice per day blood-glucose meter (OneTouch Verio Flex Start kit) test twice per day cholecalciferol (vitamin D3) 25 mcg PO DAILY 90 days empagliflozin (Jardiance) 25 mg PO DAILY 90 days fluticasone propionate 110 mcg/actuation (Flovent HFA) 1 puff PO BID 30 days gabapentin 200 mg (2 x 100 mg) PO BEDTIME 90 days insulin glargine U-300 conc (Toujeo Max U-300 SoloStar) 65 units subcut BEDTIME lancets test twice per day losartan 100 mg PO DAILY 90 days metformin 850 mg PO DAILY metoprolol succinate ER 100 mg PO DAILY nebulizers As directed pen needle, diabetic (1st Tier Unifine Pentips) Use 1 pen needle once a da Ventolin HFA 90 mcg/actuation (albuterol sulfate) 2 puffs inhalation Q6H PRN 30 days NS HPI HPI DM/CONFIRMED: Details: Patient is a 74-year-old male with a significant past medical history of hypertension, hyperlipidemia, chronic kidney disease, secondary hyperparathyroidism, anemia of chronic disease and diabetes presenting today for a follow-up regarding diabetes. Endo: This is his 1st time being seen in endocrinology. Pt was dx was more than 10 years ago. Both parents had DM but he is unsure if it was type 1 or 2. He states that they both early on in life due to complications associated with diabetes. When he was 1st diagnosed with diabetes he was treated with metformin but could not tolerate higher doses. Has kidney disease and states that would fluctuate with the metformin. He was then put on Lantus and eventually switch to Toujeo U 300. He also was recently started on Jardiance which he tolerates well. Current regimen: Jardiance 25 mg daily, metformin 850 mg daily, 65 units of Toujeo nightly. His last A1c was 9.8. He checks his blood sugars twice a day and denies any hypoglycemic events. States that his blood sugars can range from 130-250. When they were elevated he does feel increased thirst. He states that he has rarely had low blood sugars but he has felt sweaty with it before and treats that with candy. He does not have a CGM. Denies previous diabetic Education. Nephro: He is following closely with Nephrology given his kidney disease and intermittent AKIs. CV: Blood pressure today in the office is 130/72. He is currently on metoprolol 100 mg, losartan 100 mg. Cholesterol is controlled with atorvastatin 40 mg. research nutritionist: Rose Mary # [id number] [facility] Medical History Myocardial infarction Arthritis Pulmonary nodule Cavitary pneumonia MRSA bacteremia Hypovitaminosis D Former smoker Hyperparathyroidism Annual physical exam CAD (coronary artery disease) Former smoker Obese Microalbuminuria CKD (chronic kidney disease) stage 3, GFR 30-59 ml/min residential (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 Son No problems noted. Son No problems noted. Son No problems noted. Social History Household Members: Spouse Housing: Apartment Do you presently have visiting nurse or other home services: Yes Alcohol intake: former Patient Tobacco Use Status: Former Tobacco user Tobacco use type: Cigarette e-Cigarette/Vaping Use: Never Used Second Hand Smoke Exposure: No Advance Directives Date on File: 07/30/20 service: No Current occupational status: retired Cognitive needs: No Hearing needs: No Vision needs: Yes Physical Exam Vital Signs: Last Vital Signs Pulse 53 06/11/24 09:49 BP 130/72 06/11/24 09:49 BMI result Body Mass Index 27.5 Const Orientation/consciousness: patient oriented x3 Neck Neck: Yes no lymphadenopathy Thyroid: Thyroid normal Carotids: no bruits Resp Auscultation: clear to auscultation bilaterally Cardio Rate: regular rate Rhythm: regular rhythm Heart sounds: S1 normal heart sound present and S2 normal heart sound present Peripheral pulses: dorsalis pedis present Neuro General: patient oriented x3, gait normal and no focal motor deficits Extrem Other: Monofilament sensation intact bilaterally. Vibratory sensation intact bilaterally. Skin intact. General: Yes normal to inspection Results Reviewed Results Reviewed: Laboratory Last Values Glucose (Clinic) 138 mg/dL (60-115) H 06/11/24 09:57 Laboratory Tests 01/10/24 05/21/24 08:09 06:41 Sodium 142 Potassium 4.0 Chloride 109 H Carbon Dioxide 26 Anion Gap 11 L BUN 19 H Creatinine 1.45 H Estimated GFR 48 Random Glucose 97 Hemoglobin A1c % 9.8 H AST 18 ALT 17 Triglycerides 107 Cholesterol 116 LDL Cholesterol, Calc 60 HDL Cholesterol 35 L Urine Creatinine 186.70 Urine Microalbumin 133.0 Microalb/Creat Ratio 71.2 H Assessment & Plan Assessment & Plan (1) Diabetes mellitus: Code(s): E11.9 - Type 2 diabetes mellitus without complications Category: Medical Qualifiers: Diabetes mellitus type: type 2 Diabetes mellitus retirement insulin use: with keno terminal operator use Diabetes mellitus complication status: with kidney complications Diabetes mellitus complication detail: with microalbuminuria Qualified Code(s): E11.29 - Type 2 diabetes mellitus with other diabetic kidney complication; R80.9 - Proteinuria, unspecified; Z79.4 - residential (current) use of insulin Plan: More than 1 hr was spent in face to face time today discussing the pathophysiology of diabetes, complications associated with diabetes and diet with diabets. will check antibodies, cpeptide start cgm. He will call us when he gets this and set up with diabetic education as he has also never had this. will start ozempic 0.25 mg weekly. discussed risks, benefits and adverse effects such as n/v, pancreatitis etc. No fam hx of thyroid ca that he is aware of. continue current treatment otherwise. discussed signs and sx of hypo/hyperglycemia. discussed rules of 15s. 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 cgm ordered. will make adjustments at follow up (3) Essential hypertension: Code(s): I10 - Essential (primary) hypertension Category: Medical Plan: bp wnl today continue current treatment (4) CKD (chronic kidney disease) stage 3, GFR 30-59 ml/min: Code(s): N18.30 - Chronic kidney disease, stage 3 unspecified Category: Medical Qualifiers: Chronic kidney disease stage 3 subtype: stage 3a (GFR 45-59) Qualified Code(s): N18.31 - Chronic kidney disease, stage 3a Plan: stable. following with nephrology. Orders: Orders C Peptide Today E11.29 - Type 2 diabetes mellitus with other diabetic kidney complication, R80.9 - Proteinuria, unspecified, Z79.4 - lobsterman (current) use of insulin Glutamic acid decarboxylase Ab Today E11.29 - Type 2 diabetes mellitus with other diabetic kidney complication, R80.9 - Proteinuria, unspecified, Z79.4 - lobsterman (current) use of insulin Islet Cell Antibody Scrn/Titer Today E11.29 - Type 2 diabetes mellitus with other diabetic kidney complication, R80.9 - Proteinuria, unspecified, Z79.4 - lobsterman (current) use of insulin Referrals Diabetes Education Referral E11.29 - Type 2 diabetes mellitus with other diabetic kidney complication, R80.9 - Proteinuria, unspecified, Z79.4 - residential (current) use of insulin Medications: New blood-glucose sensor (FreeStyle Jarrod 3 Sensor device) Apply every 14 days As directed to monitor blood glucose 2 ea 11RF E11.9 - Type 2 diabetes mellitus without complications, Z79.4 - residential (current) use of insulin blood-glucose meter,continuous (CellPlyStyle Jarrod 3 Mershon) Use daily As directed to monitor blood glucose 1 ea 0RF E11.29 - Type 2 diabetes mellitus with other diabetic kidney complication, I10 - Essential (primary) hypertension, N18.31 - Chronic kidney disease, stage 3a, R80.9 - Proteinuria, unspecified, Z79.4 - lobsterman (current) use of insulin glucose (Dex4 Glucose) until symptoms of low blood sugar are controlled 16 grams (4 x 4 gram) PO Q15M PRN 100 tabs 0RF hypoglycemia semaglutide (Ozempic) for 4 weeks 0.25 mg (0.368 mL) subcut QWEEK 3 mL 1RF Coding Level of Care Code New Pt Level 4 (83538) Diagnoses Type 2 diabetes mellitus with microalbuminuria, with long-term current use of insulin E11.29; R80.9; Z79.4 Diabetes mellitus type: type 2 Diabetes mellitus keno terminal operator insulin use: with keno terminal operator use Diabetes mellitus complication status: with kidney complications Diabetes mellitus complication detail: with microalbuminuria residential (current) use of insulin Z79.4 Essential hypertension I10 Stage 3a chronic kidney disease N18.31 Chronic kidney disease stage 3 subtype: stage 3a (GFR 45-59) Time Spent (min) 70
[2024-06-11 09:49] VITALS: BP 130/72; PULSE 53; BMI 27.5
[2024-06-11 10:01] LABS: Glucose, Whole Blood 138 mg/dL (60-115)
== END 2024-06-11 10:40 | disposition home or self-care (01) ==
PROVIDERS: PCP Internal Medicine; Visit Provider Physician Assistant
DX: E11.29 Type 2 diabetes mellitus with other diabetic kidney complication (principal); R80.9 Proteinuria, unspecified; Z79.4 Long term (current) use of insulin; I10 Essential (primary) hypertension; N18.31 Chronic kidney disease, stage 3a
CPT/HCPCS: 99204

== ENCOUNTER → 2024-06-11 09:40 | Outpatient (BNVA) | payer OTHER, SELFPAY | PROVIDERS: PCP Internal Medicine; Visit Provider Physician Assistant | DX: E11.29 Type 2 diabetes mellitus with other diabetic kidney complication (principal); R80.9 Proteinuria, unspecified; Z79.4 Long term (current) use of insulin | CPT/HCPCS: 82947; 99202 ==

== ENCOUNTER 2024-06-18 07:21 | Outpatient (AMB) | payer OTHER, SELFPAY ==
--- NOTE | 2024-06-18 08:15 | MHC.AMDMED ---
Intake Intake Visit Reasons: Type 2 DM-conf De Ionizer Operator Required: Yes De Ionizer Operator Language: Orthotic Technician Name: Patricia [id number] Accompanied by: Self / Same As Patient Allergies gabapentin Allergy (Mild, Verified 06/11/24 09:50) Itching HPI Comprehensive Diabetes Asmnt Most Recent Diabetes Results: Microalb/Creat Ratio 71.2 ug/mg cr (<30) H 01/10/24 Cholesterol 116 mg/dL (<200) 05/21/24 HDL Cholesterol 35 mg/dL (>40) L 05/21/24 Triglycerides 107 mg/dL (<150) 05/21/24 Creatinine 1.45 mg/dL (0.5-1.4) H 05/21/24 Blood Urea Nitrogen 19 mg/dL (9-16) H 05/21/24 Sodium 142 mmol/L (135-145) 05/21/24 Potassium 4.0 mmol/L (3.3-5.1) 05/21/24 Chloride 109 mmol/L (96-108) H 05/21/24 Carbon Dioxide 26 mmol/L (22-29) 05/21/24 Calcium 9.8 mg/dL (8.4-10.2) 05/21/24 AST 18 U/L (5-37) 05/21/24 ALT 17 U/L (0-40) 05/21/24 Total Protein 6.7 g/dL (6.5-8.0) 05/21/24 Albumin 4.1 g/dL (3.5-5.0) 05/21/24 [facility] Medical History Myocardial infarction Arthritis Pulmonary nodule Cavitary pneumonia MRSA bacteremia Hypovitaminosis D Former smoker Hyperparathyroidism Annual physical exam CAD (coronary artery disease) Former smoker Obese Microalbuminuria CKD (chronic kidney disease) stage 3, GFR 30-59 ml/min 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 Son No problems noted. Son No problems noted. Son No problems noted. Social History Household Members: Spouse Housing: Apartment Do you presently have visiting nurse or other home services: Yes Alcohol intake: former Patient Tobacco Use Status: Former Tobacco user Tobacco use type: Cigarette e-Cigarette/Vaping Use: Never Used Second Hand Smoke Exposure: No Advance Directives Date on File: 07/30/20 service: No Current occupational status: retired Cognitive needs: No Hearing needs: No Vision needs: Yes Assessment & Plan Assessment & Plan (1) Diabetes mellitus: Code(s): E11.9 - Type 2 diabetes mellitus without complications Qualifiers: Diabetes mellitus type: type 2 Diabetes mellitus adjunct faculty for medical terminology insulin use: with penitentiary use Diabetes mellitus complication status: with kidney complications Diabetes mellitus complication detail: with microalbuminuria Qualified Code(s): E11.29 - Type 2 diabetes mellitus with other diabetic kidney complication; R80.9 - Proteinuria, unspecified; Z79.4 - intermediate designer (current) use of insulin Plan: Patient at visit to set up an insert Jarrod 3 Instructed patient sensors water proof you can shower, or swim do not submerge sensor in water for over 30 minutes Is sensor falls off cannot put back in you need to replace sensor, customer service number given to patient for sensor replacement Sensor placed on the back of L arm Patient left visit with sensor in warmup Reviewed how to interpret trend arrows Reminded patient that to check finger sticks if symptoms do not match sensor reading. Discussed lag time between finger stick and sensor data.? Instructed patient she should always keep blood glucometer for backup testing if needed Reviewed delay of CGM from fingersticks Reminded pt that if symptoms do not match sensor still needs to check fingersticks. Insulin/Incretin?Mimetic Education visit Patient Education: Pt starting Ozempic 0.25 mg Patient was instructed and provided with demonstration of the following: Insulin action and Incretin Mimetics medication storage how to set up medication pen/or syringe and vial Handwashing insulin injection site rotation Site rotation recognizing hypertrophy Testing blood glucose Removing and disposing needle from insulin pen Safe disposal of sharps Target blood sugar Signs/ symptoms/treatment of hypoglycemia/hyperglycemia expiration of open insulin pen Patient verbalized understanding of education provided and was able to demonstrate proper use of inject into injection pillow Reviewed rule of 15s to treat glucose under 70 mg/dL All questions were answered and patient was advised to contact the office with any questions or concerns. Patient will inject Ozempic 0.25 mg weekly Patient will follow-up with educator senior clinical in 2 weeks Portions of this note were created using voice recognition software, please excuse any words or phrases that may have been misinterpreted. Patient Instructions: Patient instruction: CGM provides information on blood glucose control throughout the day, including hyperglycemia and hypoglycemia. ? Continue to monitor blood glucose as instructed. Follow nutrition guidelines provided. Report any discomfort promptly to health care provider. ?Stay well-hydrated. You can bathe ,shower, swim and exercise while wearing the glucose sensor. Do not submerge glucose sensor in water for more than 30 minutes. Instrucciones para el paciente: CGM proporciona informaci?n sobre el control de la glucosa en toshia a lo kassandra del d?a, incluidas la hiperglucemia y la hipoglucemia. Contin?e controlando la glucosa en toshia seg?n las instrucciones. Siga las pautas de nutrici?n proporcionadas. Informe cualquier molestia de inmediato al proveedor de atenci?n m?dica. Mantente evan hidratado. Puede ba?arse, ducharse, nadar y hacer ejercicio mientras usa el sensor de glucosa. No sumerja el sensor de glucosa en agua nely m?s de 30 minutos. Retire el sensor para heide resonancia magn?angus o heide tomograf?a computarizada. Evite la m?quina de lenny X en los aeropuertos: retire el sensor o solicite la varita Coding Level of Care Code Est Pt Level 1 (73429) Diagnoses Type 2 diabetes mellitus with microalbuminuria, with long-term current use of insulin E11.29; R80.9; Z79.4 Diabetes mellitus type: type 2 Diabetes mellitus penitentiary insulin use: with adjunct faculty for medical terminology use Diabetes mellitus complication status: with kidney complications Diabetes mellitus complication detail: with microalbuminuria
== END 2024-06-18 08:20 | disposition home or self-care (01) ==
PROVIDERS: PCP Internal Medicine; Visit Provider Registered Nurse Diabetes Educator
DX: E11.29 Type 2 diabetes mellitus with other diabetic kidney complication (principal); R80.9 Proteinuria, unspecified; Z79.4 Long term (current) use of insulin

== ENCOUNTER → 2024-06-18 07:21 | Outpatient (BNVA) | payer OTHER, SELFPAY | PROVIDERS: PCP Internal Medicine; Visit Provider Registered Nurse Diabetes Educator | DX: E11.29 Type 2 diabetes mellitus with other diabetic kidney complication (principal); N18.30 Chronic kidney disease, stage 3 unspecified; R80.9 Proteinuria, unspecified; Z79.4 Long term (current) use of insulin | CPT/HCPCS: 99211 ==

== ENCOUNTER 2024-07-02 07:38 | Outpatient (AMB) | payer OTHER, SELFPAY ==
--- NOTE | 2024-07-02 08:25 | MHC.AMDMED ---
Intake Intake Visit Reasons: 60 min Double Ending Machine Operator Required: Yes Double Ending Machine Operator Language: Irrigating Pump Operator Name: [id number] Accompanied by: Self / Same As Patient Allergies gabapentin Allergy (Mild, Verified 06/11/24 09:50) Itching HPI Comprehensive Diabetes Asmnt Most Recent Diabetes Results: Cholesterol 116 mg/dL (<200) 05/21/24 HDL Cholesterol 35 mg/dL (>40) L 05/21/24 Triglycerides 107 mg/dL (<150) 05/21/24 Creatinine 1.45 mg/dL (0.5-1.4) H 05/21/24 Blood Urea Nitrogen 19 mg/dL (9-16) H 05/21/24 Sodium 142 mmol/L (135-145) 05/21/24 Potassium 4.0 mmol/L (3.3-5.1) 05/21/24 Chloride 109 mmol/L (96-108) H 05/21/24 Carbon Dioxide 26 mmol/L (22-29) 05/21/24 Calcium 9.8 mg/dL (8.4-10.2) 05/21/24 AST 18 U/L (5-37) 05/21/24 ALT 17 U/L (0-40) 05/21/24 Total Protein 6.7 g/dL (6.5-8.0) 05/21/24 Albumin 4.1 g/dL (3.5-5.0) 05/21/24 [facility] Medical History Myocardial infarction Arthritis Pulmonary nodule Cavitary pneumonia MRSA bacteremia Hypovitaminosis D Former smoker Hyperparathyroidism Annual physical exam CAD (coronary artery disease) Former smoker Obese Microalbuminuria CKD (chronic kidney disease) stage 3, GFR 30-59 ml/min jail (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 Son No problems noted. Son No problems noted. Son No problems noted. Social History Household Members: Spouse Housing: Apartment Do you presently have visiting nurse or other home services: Yes Alcohol intake: former Patient Tobacco Use Status: Former Tobacco user Tobacco use type: Cigarette e-Cigarette/Vaping Use: Never Used Second Hand Smoke Exposure: No Advance Directives Date on File: 07/30/20 service: No Current occupational status: retired Cognitive needs: No Hearing needs: No Vision needs: Yes Assessment & Plan Assessment & Plan (1) Diabetes mellitus: Code(s): E11.9 - Type 2 diabetes mellitus without complications Qualifiers: Diabetes mellitus type: type 2 Diabetes mellitus rat exterminator insulin use: with rat exterminator use Diabetes mellitus complication status: with kidney complications Diabetes mellitus complication detail: with microalbuminuria Qualified Code(s): E11.29 - Type 2 diabetes mellitus with other diabetic kidney complication; R80.9 - Proteinuria, unspecified; Z79.4 - jail (current) use of insulin Plan: Learning objectives: The patient was provided with verbal and written education on the following topics as outlined below. The patient met all learning objectives and was able to verbalize understanding and provide teach back of education topics discussed . The patient was provided with the opportunity to ask questions and all questions were answered. Patient Assessment Assess patient education level/literacy/barriers, patient could identify foods from carb list that he is currently eating Patient questions/concerns, patient's last A1c on 02/20/2024 9.8%. Patient has started Ozempic 0.25 mg approximately 2 weeks ago, patient does report minimal GI upset. Instructed patient to be careful with large portions carbohydrate or high fat meals which can exacerbate GI symptoms Patient has follow-up appointment on 07/13/2024 with physician's kitchen assistant What is Diabetes? Pathophysiology How the body produces and uses insulin Identify type of DM Risk factors Signs of Diabetes Brief overview of Diabetes Management Monitoring blood sugar Following a meal plan Regular exercise Maintaining a healthy weight Taking medication as needed Members of the care team (PCP, RN, MA, RD, CDE, supervisor fabrication and assembly) Blood glucose monitoring When/how often to test Target blood sugar ranges Patient uses freestyle Jarrod 3 to monitor glucose Patient's average glucose for the past 14 days 197 mg/dL Patient above target 61% At target 39% Below target 0% Introduction to Nutrition Importance of healthy diet in managing DM Diet is personalized to individual preference Review patient?s regular diet/food preferences Who prepares meals/does food shopping/ Dining out?/ Barriers? How diet effects glucose Eating 3 balanced meals a day with small, healthy snacks between meals Review food groups Carbohydrates: What is a carbohydrate/Which food/food groups are considered carbohydrates Effect of carbohydrates on blood glucose Portion sizes Reading food labels Basic carb counting (if applicable per nursing assessment) Plate method Meal planning Recommendations: Follow plate method, consistent carbs and read nutritional labels. Smart Goal: Educational Materials: The patient was provided with the following written educational materials: Planning Healthy Meals Handout Patient Response to instructions: Comprehension of Instructions: Fair Readiness to make changes: Contemplation How confident they feel about making changes: Positive Portions of this note were created using voice recognition software, please excuse any words or phrases that may have been misinterpreted. Include regular daily activity. ADA recommends 30 minutes of exercise 5 days a week. Weight loss talk to PCP or Admitting Office Escort before starting new plan. Test blood sugar as directed; Fasting and 2hpp largest meal. Watch trends in results. Utilize results and to assess how food, physical activity and medications affect blood sugar results. Bring glucometer or CGM to next visit. Be knowledgeable about diabetes medication, its action, side effects, efficacy, toxicity, prescribed dosage, appropriate timing and frequency of administration, effect of missed and delayed doses and instructions for storage, travel and safety. Problem solving techniques to monitor hypo/hyperglycemia episodes and treatments. Reduce risk reduction behaviors, smoking cessation, regular eye, foot and dental examinations. I Patient Instructions: Incluir actividad diaria regular. ADA recomienda 30 minutos de ejercicio 5 d?as a la semana. P?rdida de peso, hable con el PCP o el cardi?logo antes de comenzar un nuevo plan. Mida el nivel de az?car en la toshia seg?n las indicaciones; Ayuno y comida m?s cherise de 2hpp. Observe las tendencias en los resultados. Utilice los resultados y eval?e c?mo los alimentos, la actividad f?noreen y los medicamentos afectan los resultados de az?car en la toshia. Lleve el gluc?metro o CGM a la pr?xima visita. Conocer los medicamentos para la diabetes, arias acci?n, los efectos secundarios, la eficacia, la toxicidad, la dosis prescrita, el momento y la frecuencia de administraci?n apropiados, el efecto de las dosis olvidadas y retrasadas y las instrucciones de almacenamiento, viaje y seguridad. T?cnicas de resoluci?n de problemas para el seguimiento de episodios de hipo/hiperglucemia y tratamientos. Reducir los comportamientos de reducci?n de riesgos, dejar de fumar, ex?menes regulares de ojos, pies y dentales. Coding Level of Care Code Est Pt Level 1 (40066) Diagnoses Type 2 diabetes mellitus with microalbuminuria, with long-term current use of insulin E11.29; R80.9; Z79.4 Diabetes mellitus type: type 2 Diabetes mellitus rat exterminator insulin use: with rat exterminator use Diabetes mellitus complication status: with kidney complications Diabetes mellitus complication detail: with microalbuminuria
== END 2024-07-02 08:34 | disposition home or self-care (01) ==
PROVIDERS: PCP Internal Medicine; Visit Provider Registered Nurse Diabetes Educator
DX: E11.29 Type 2 diabetes mellitus with other diabetic kidney complication (principal); R80.9 Proteinuria, unspecified; Z79.4 Long term (current) use of insulin

== ENCOUNTER → 2024-07-02 07:38 | Outpatient (BNVA) | payer OTHER, SELFPAY | PROVIDERS: PCP Internal Medicine; Visit Provider Registered Nurse Diabetes Educator | DX: E11.29 Type 2 diabetes mellitus with other diabetic kidney complication (principal); R80.9 Proteinuria, unspecified; Z79.4 Long term (current) use of insulin | CPT/HCPCS: 99211 ==

== ENCOUNTER 2024-07-06 06:46 | Outpatient (REF) | payer OTHER, SELFPAY ==
[2024-07-06 07:40] LABS: Anion Gap 12 (12-20); Blood Urea Nitrogen 23 mg/dL (9-16); Calcium 10.3 mg/dL (8.4-10.2); Carbon Dioxide 27 mmol/L (22-29); Chloride 107 mmol/L (96-108); Estimated Glomerular Filt Rate 44; Glucose Random 151 mg/dL (60-115); Potassium 4.6 mmol/L (3.3-5.1); Sodium 141 mmol/L (135-145)
[2024-07-06 10:04] LABS: Creatinine Urine 105.25 mg/dL; Total Protein Urine Random 16 mg/dL (<12)
== END 2024-07-06 06:47 | disposition home or self-care (01) ==
LOC: HO.LAB 06:46
PROVIDERS: Internal Medicine Hypertension Specialist; PCP Internal Medicine; Visit Provider Physician Assistant
DX: N18.31 Chronic kidney disease, stage 3a (principal)
CPT/HCPCS: 36415; 80048; 82570; 84156

== ENCOUNTER 2024-07-13 09:47 | Outpatient (AMB) | payer OTHER, SELFPAY ==
--- NOTE | 2024-07-13 09:52 | A.OFFVIS_ITS ---
Vital Signs 07/13/24 09:56 Height 5 ft 5 in Weight 163 lb 2.273 oz BMI 27.1 BP 118/74 Blood Pressure Location Rt brachial Position Sitting Pulse 85 Pulse Source Pulse Oximeter Intake Visit Reasons: DM Intake Note: Patient presents today for a follow-up on Type 2 Diabetes Mellitus: Last Diabetic eye exam was on: 05/2024, having cataracts surgery in August Last Podiatry exam was on: Does not see a Death Surveys Coder Most recent HbA1c: 9.8% 05/21/24 Random Glucose- 161 mg/dL, Today [employer] Agent Team Member Required: Yes [employer] Agent Team Member Language: Radiology Ct Technologist Services: [employer] Agent Team Member Present [employer] Agent Team Member Name: LAZARO Lorenz/DINH KWOK Accompanied by: Self / Same As Patient Allergies gabapentin Allergy (Mild, Verified 06/11/24 09:50) Itching Medication List - Last Reconciled 07/13/24 by Vita Guido PA-C acetaminophen (Tylenol Extra Strength) 500 mg PO Q6H PRN albuterol sulfate 2.5 mg (3 mL) inhalation Q4-6H PRN atorvastatin 40 mg PO DAILY 90 days blood sugar diagnostic (OneTouch Verio test strips) test twice per day blood-glucose meter (OneTouch Verio Flex Start kit) test twice per day blood-glucose meter,continuous (FreeStyle Jarrod 3 [place]) Use daily As directed to monitor blood glucose blood-glucose sensor (FreeStyle Jarrod 3 Sensor device) Apply every 14 days As directed to monitor blood glucose cholecalciferol (vitamin D3) 25 mcg PO DAILY 90 days empagliflozin (Jardiance) 25 mg PO DAILY 90 days fluticasone propionate 110 mcg/actuation (Flovent HFA) 1 puff PO BID 30 days gabapentin 200 mg (2 x 100 mg) PO BEDTIME 90 days glucose (Dex4 Glucose) 16 grams (4 x 4 gram) PO Q15M PRN insulin glargine U-300 conc (Toujeo Max U-300 SoloStar) 50 units subcut BEDTIME lancets test twice per day losartan 100 mg PO DAILY 90 days metformin 850 mg PO DAILY metoprolol succinate ER 100 mg PO DAILY nebulizers As directed pen needle, diabetic (1st Tier Unifine Pentips) Use 1 pen needle once a da semaglutide (Ozempic) 0.25 mg (0.368 mL) subcut QWEEK Ventolin HFA 90 mcg/actuation (albuterol sulfate) 2 puffs inhalation Q6H PRN 30 days NS HPI HPI DM: Details: Patient is a 74-year-old male with a significant past medical history of hypertension, hyperlipidemia, chronic kidney disease, secondary hyperparathyroidism, anemia of chronic disease and diabetes presenting today for a follow-up regarding diabetes. Endo: Last A1c 9.8. When he was 1st diagnosed with diabetes he was treated with metformin but could not tolerate higher doses. He was then put on Lantus and eventually switch to Toujeo U 300. He also was recently started on Jardiance. Current regimen: Jardiance 25 mg daily, metformin 850 mg daily, 40-60 units of Toujeo nightly, he changes the dose based on his glucose readings. I started him on Ozempic at our last visit he has taken a couple doses but has missed this past week. He thinks he would do better if he took it the same time his takes her Carli.. His last A1c was 9.8. At our last visit we were able to start a CGM. CGM-usage 96%, hyperglycemic 50%, in range 50%. No hypoglycemic events. -most hyperglycemic events are after meals. Followed recently for diabetic Education and found this very helpful. Nephro: He is following closely with Nephrology given his kidney disease and intermittent AKIs. CV: Blood pressure today in the office is 118/74. He is currently on metoprolol 100 mg, losartan 100 mg. Cholesterol is controlled with atorvastatin 40 mg. climate change risk assessor: Eloina CONTEH Medical History (Updated 07/13/24 @ 10:26 by Vita Guido PA-C) Myocardial infarction Arthritis Pulmonary nodule Cavitary pneumonia MRSA bacteremia Hypovitaminosis D Former smoker Hyperparathyroidism Annual physical exam CAD (coronary artery disease) Former smoker Obese Microalbuminuria CKD (chronic kidney disease) stage 3, GFR 30-59 ml/min group home (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 Son No problems noted. Son No problems noted. Son No problems noted. Social History Household Members: Spouse Housing: Apartment Do you presently have visiting nurse or other home services: Yes Alcohol intake: former Patient Tobacco Use Status: Former Tobacco user Tobacco use type: Cigarette e-Cigarette/Vaping Use: Never Used Second Hand Smoke Exposure: No Advance Directives Date on File: 07/30/20 service: No Current occupational status: retired Cognitive needs: No Hearing needs: No Vision needs: Yes Physical Exam Vital Signs: Last Vital Signs Pulse 85 07/13/24 09:56 BP 118/74 07/13/24 09:56 BMI result Body Mass Index 27.1 Const Orientation/consciousness: patient oriented x3 Neck Neck: Yes no lymphadenopathy Thyroid: Thyroid normal Carotids: no bruits Resp Auscultation: clear to auscultation bilaterally Cardio Rate: regular rate Rhythm: regular rhythm Heart sounds: S1 normal heart sound present and S2 normal heart sound present Peripheral pulses: dorsalis pedis present Neuro General: patient oriented x3, gait normal and no focal motor deficits Extrem Other: Monofilament sensation intact bilaterally. Vibratory sensation intact bilaterally. Skin intact. General: Yes normal to inspection Office Procedures Glucose Monitoring Details 76109 - Glucose monitoring, continuous-physician I&R Procedure code (CPT) selection complete Results Reviewed Results Reviewed: Laboratory Last Values Glucose (Clinic) 161 mg/dL (60-115) H 07/13/24 10:01 Laboratory Tests 07/06/24 06:54 Creatinine 1.56 H Estimated GFR 44 Assessment & Plan Assessment & Plan (1) Uncontrolled type 2 diabetes mellitus with hyperglycemia, with long-term current use of insulin: Code(s): E11.65 - Type 2 diabetes mellitus with hyperglycemia; Z79.4 - termite renewal inspector (current) use of insulin Category: Medical Plan: Advised to be consistent with meaghan Morrell and we will start 50 units. We will start him Humalog 4 units 3 times a day. He will be compliant with the Ozempic and take it on Saturdays when his takes her Carli. We will follow up in 1 month. Sooner if needed. (2) Essential hypertension: Code(s): I10 - Essential (primary) hypertension Category: Medical Plan: Continue current regimen (3) CKD (chronic kidney disease) stage 3, GFR 30-59 ml/min: Code(s): N18.30 - Chronic kidney disease, stage 3 unspecified Category: Medical Qualifiers: Chronic kidney disease stage 3 subtype: stage 3a (GFR 45-59) Qualified Code(s): N18.31 - Chronic kidney disease, stage 3a Plan: Stable. Medications: New insulin lispro (Humalog KwikPen (U-100) Insulin) with breakfast, lunch and supper 4 units (0.04 mL) subcut TID 15 mL 2RF Refilled blood-glucose sensor (FreeStyle Jarrod 3 Sensor device) Apply every 14 days As directed to monitor blood glucose 2 ea 11RF E11.9 - Type 2 diabetes mellitus without complications, Z79.4 - group home (current) use of insulin Coding Level of Care Code Est Pt Level 4 (79540) Diagnoses Uncontrolled type 2 diabetes mellitus with hyperglycemia, with long-term current use of insulin E11.65; Z79.4 Essential hypertension I10 Stage 3a chronic kidney disease N18.31 Chronic kidney disease stage 3 subtype: stage 3a (GFR 45-59) CPT Codes Details - CPT: 66987 - Glucose monitoring, continuous-physician I&R ([id number])
[2024-07-13 09:56] VITALS: BP 118/74; PULSE 85; BMI 27.1
[2024-07-13 10:05] LABS: Glucose, Whole Blood 161 mg/dL (60-115)
== END 2024-07-13 10:22 | disposition home or self-care (01) ==
PROVIDERS: PCP Internal Medicine; Visit Provider Physician Assistant
DX: E11.65 Type 2 diabetes mellitus with hyperglycemia (principal); Z79.4 Long term (current) use of insulin; I10 Essential (primary) hypertension; N18.31 Chronic kidney disease, stage 3a

== ENCOUNTER → 2024-07-13 09:47 | Outpatient (BNVA) | payer OTHER, SELFPAY | PROVIDERS: PCP Internal Medicine; Visit Provider Physician Assistant | DX: E11.65 Type 2 diabetes mellitus with hyperglycemia (principal); I12.9 Hypertensive chronic kidney disease with stage 1 through stage 4 chronic kidney disease, or unspecified chronic kidney disease; E11.22 Type 2 diabetes mellitus with diabetic chronic kidney disease; N18.31 Chronic kidney disease, stage 3a; Z79.4 Long term (current) use of insulin; Z71.3 Dietary counseling and surveillance | CPT/HCPCS: 82947; 99212 ==

== ENCOUNTER 2024-08-09 06:15 | Outpatient (REF) | payer OTHER, SELFPAY ==
[2024-08-09 06:25] LABS: MANUAL DIFF FLAG NO
[2024-08-09 07:38] LABS: Basophils Absolute Auto 0.1 X10*3/uL (0.0-0.2); Basophils Percent Auto 0.7 % (0-2); Eosinophils Absolute Auto 0.2 X10*3/uL (0.0-0.4); Eosinophils Percent Auto 2.5 % (0-4); Hemoglobin 12.8 g/dl (14.0-18.0); Imm Gran Abs Auto 0.02 X10*3/uL (0.00-0.03); Imm Gran Pct Auto 0.3 % (0.0-0.4); Lymphocytes Absolute Auto 2.3 X10*3/uL (1.2-4.9); Lymphocytes Percent Auto 32.9 % (20-40); Mean Corpuscular Hemoglobin 27.9 pg (27.0-33.0); Mean Corpuscular Volume 87.1 fL (80.0-98.0); Mean Platelet Volume 11.6 fL (9.4-12.4); Monocytes Absolute Auto 0.7 X10*3/uL (0.1-1.2); Monocytes Percent Auto 10.2 % (2-11); Neutrophils Absolute Auto 3.8 x10*3/uL (2.0-8.3); Neutrophils Percent Auto 53.4 % (45-73); Platelet Count 319 X10*3/uL (160-400); Red Blood Count 4.59 X10*6/uL (4.60-5.80); Red Cell Distribution Width 15.5 % (11.0-16.0); White Blood Count 7.1 X10*3/uL (4.8-10.8)
[2024-08-09 08:14] LABS: Parathyroid Hormone Intact 94.6 pg/mL (8.7-77.1)
[2024-08-09 08:16] LABS: Creatinine Urine 84.11 mg/dL; Microalbum/Creatinine Ratio Ur 34.4 ug/mg cr (<30)
[2024-08-09 08:20] LABS: Alanine Aminotransferase 23 U/L (0-40); Albumin Level 4.2 g/dL (3.5-5.0); Alkaline Phosphatase 143 U/L (39-117); Anion Gap 11 (12-20); Aspartate Amino Transferase 21 U/L (5-37); Bilirubin Total 0.5 mg/dL (0.0-1.0); Blood Urea Nitrogen 16 mg/dL (9-16); Calcium 10.8 mg/dL (8.4-10.2); Carbon Dioxide 29 mmol/L (22-29); Chloride 107 mmol/L (96-108); Estimated Glomerular Filt Rate 50; Glucose Fasting 147 mg/dL (60-99); Iron 93 mcg/dL (45-160); Percent Iron Saturation 37 % (15-50); Potassium 4.1 mmol/L (3.3-5.1); Sodium 143 mmol/L (135-145); Total Iron Binding Capacity 249 mcg/dL (228-428); Unsaturated Iron Binding 156 ug/dL
[2024-08-09 08:37] LABS: Vitamin D 25-OH Total 40.1 ng/mL (>30)
[2024-08-10 17:17] LABS: C Peptide 2.76 ng/mL (0.80-3.85)
[2024-08-12 16:08] LABS: Glutamic acid decarboxylase Ab <5 IU/mL (<5)
[2024-08-20 23:38] LABS: Islet Cell Antibody Screen NEGATIVE (NEGATIVE)
== END 2024-08-09 06:16 | disposition home or self-care (01) ==
LOC: HO.LAB 06:15
PROVIDERS: Absent Provider Physician Assistant; PCP Internal Medicine; Visit Provider Internal Medicine
DX: E11.29 Type 2 diabetes mellitus with other diabetic kidney complication (principal); Z79.4 Long term (current) use of insulin; R80.9 Proteinuria, unspecified; E55.9 Vitamin D deficiency, unspecified; E21.3 Hyperparathyroidism, unspecified; D64.9 Anemia, unspecified; E11.9 Type 2 diabetes mellitus without complications
CPT/HCPCS: 36415; 80053; 82043; 82306; 82570; 83540; 83970; 84681; 85025; 86341

== ENCOUNTER 2024-08-13 10:52 | Outpatient (AMB) | payer OTHER, SELFPAY ==
--- NOTE | 2024-08-13 11:09 | MHC.OFFVIS ---
Vital Signs 08/13/24 11:13 Height 5 ft 5 in Weight 160 lb 14.999 oz BMI 26.8 BP 124/69 Blood Pressure Location Lt brachial Position Sitting Pulse 70 Intake Visit Reasons: 8 month f/u Intake Note: Zuhair presents in the office as a 8 month follow up. CC: He states that he is feeling okay and not having any concerns at this time. Yoker Required: No Allergies gabapentin Allergy (Mild, Verified 08/13/24 11:24) Itching HPI HPI 8 month f/u: Details: 73 yr old m here for f/u He was being seen for chronic anemia HGB stable around 11 g/dl prior HGb 05/2023-- 13 g/dl with nml iron and vit levels he has CKD colonoscopy was normal with excellent prep, only small hemorrhoids seen nml iron sat INTERIM: He feels well and he has no sx he has no hematuria or urine sx, no nose bleeds he has no rectal bleeding, denies melena no abdominal pain HGB has been stable at around 12 g/dl on several readings incl recent one 08/16 EXAM: GENERAL: The patient is well developed and nontoxic. VITAL SIGNS:see workflow HEENT: Nonicteric sclerae, PERRLA, EOMI. Oropharynx clear. Moist mucous membranes. Conjunctivae appear well perfused. No thyroid mass. CHEST: Chest wall is nontender. HEART: Regular rate and rhythm without murmurs. LUNGS: Clear to auscultation bilaterally. ABDOMEN: Soft, positive bowel sounds, nontender, no organomegaly.no flank tenderness SKIN: No rash, no excessive bruising, petechiae, or purpura. NEUROLOGIC: Cranial nerves II-XII intact without motor/sensory deficit. A/P: 1/ normal colonoscopy, 2/ chronic anemia, normocytic could be from CKD stage III, stable anemia PLAN: 1/ f/u PCP and renal, periodic HGb measurement, advised if any melena, bleeding call office or come to ED [facility] Medical History Myocardial infarction Arthritis Pulmonary nodule Cavitary pneumonia MRSA bacteremia Hypovitaminosis D Former smoker Hyperparathyroidism Annual physical exam CAD (coronary artery disease) Former smoker Obese Microalbuminuria CKD (chronic kidney disease) stage 3, GFR 30-59 ml/min 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 Son No problems noted. Son No problems noted. Son No problems noted. Social History Household Members: Spouse Housing: Apartment Do you presently have visiting nurse or other home services: Yes Alcohol intake: former Patient Tobacco Use Status: Former Tobacco user Tobacco use type: Cigarette e-Cigarette/Vaping Use: Never Used Second Hand Smoke Exposure: No Advance Directives Date on File: 07/30/20 service: No Current occupational status: retired Cognitive needs: No Hearing needs: No Vision needs: Yes Physical Exam Vital Signs: Last Vital Signs Pulse 70 08/13/24 11:13 BP 124/69 08/13/24 11:13 BMI result Body Mass Index 26.8 Assessment & Plan Assessment & Plan (1) Chronic disease anemia: Code(s): D63.8 - Anemia in other chronic diseases classified elsewhere Category: Medical Plan: see above Coding Level of Care Code Est Pt Level 3 (44799) Diagnoses Chronic disease anemia D63.8
[2024-08-13 11:13] VITALS: BP 124/69; PULSE 70; BMI 26.8
== END 2024-08-13 12:37 | disposition home or self-care (01) ==
PROVIDERS: PCP Internal Medicine; Visit Provider Internal Medicine Gastroenterology
DX: N18.30 Chronic kidney disease, stage 3 unspecified (principal); D63.8 Anemia in other chronic diseases classified elsewhere
CPT/HCPCS: 99213

== ENCOUNTER → 2024-08-13 10:52 | Outpatient (BNVA) | payer OTHER, SELFPAY | PROVIDERS: PCP Internal Medicine; Visit Provider Internal Medicine Gastroenterology | DX: D64.9 Anemia, unspecified (principal) | CPT/HCPCS: 99212 ==

== ENCOUNTER 2024-08-14 10:08 | Outpatient (AMB) | payer OTHER, SELFPAY ==
--- NOTE | 2024-08-14 10:13 | A.OFFPC_ITS ---
Vital Signs 08/14/24 10:18 Height 5 ft 5 in Weight 159 lb BMI 26.5 BP 112/70 Blood Pressure Location Lt brachial Position Sitting Pulse 75 Pulse Source Pulse Oximeter Pulse Oximetry (%) 99 Oxygen Delivery Method Room Air Intake Visit Reasons: Catar surgery schedule 08/27 & 09/10 Dr Gardner Intake Note: Patient is here for a Pre-op for Cataract Surgery scheduled with Dr. 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 Required: No Allergies gabapentin Allergy (Mild, Verified 08/14/24 10:40) Itching Medication List - Last Reconciled 08/14/24 by Bridget Beaver PA-C acetaminophen (Tylenol Extra Strength) 500 mg PO Q6H PRN albuterol sulfate 2.5 mg (3 mL) inhalation Q4-6H PRN atorvastatin 40 mg PO DAILY 90 days blood sugar diagnostic (Lookoutuch Verio test strips) test twice per day blood-glucose meter (Lookoutuch Verio Flex Start kit) test twice per day blood-glucose meter,continuous (FreeStyle Jarrod 3 [place]) Use daily As directed to monitor blood glucose blood-glucose sensor (FreeStyle Jarrod 3 Sensor device) Apply every 14 days As directed to monitor blood glucose cholecalciferol (vitamin D3) 25 mcg PO DAILY 90 days empagliflozin (Jardiance) 25 mg PO DAILY 90 days fluticasone propionate 110 mcg/actuation (Flovent HFA) 1 puff PO BID 30 days gabapentin 200 mg (2 x 100 mg) PO BEDTIME 90 days glucose (Dex4 Glucose) 16 grams (4 x 4 gram) PO Q15M PRN insulin glargine U-300 conc (Toujeo Max U-300 SoloStar) 50 units subcut BEDTIME insulin lispro (Humalog KwikPen (U-100) Insulin) 4 units (0.04 mL) subcut TID lancets test twice per day losartan 100 mg PO DAILY 90 days metformin 850 mg PO DAILY metoprolol succinate ER 100 mg PO DAILY nebulizers As directed pen needle, diabetic (1st Tier Unifine Pentips) Use 1 pen needle once a da semaglutide (Ozempic) 0.25 mg (0.368 mL) subcut QWEEK Ventolin HFA 90 mcg/actuation (albuterol sulfate) 2 puffs inhalation Q6H PRN 30 days NS Tobacco use date assessed: 01/16/24 Fall risk assessment: No Falls in past year Last assessed Fall Risk: 08/14/24 Dental Screening Dental Screen Date: 01/16/24 [facility] Catar surgery schedule 08/27 & 09/10 Dr Gardner [facility] Details 74-year-old male with past medical histo ry of hypertension, diabetes mellitus type 2 on long-term use of insulin, chronic kidney disease stage 3 and hyperparathyroidism last seen by Dr. Quezada coming in for preoperative exam. In review of the notes, patient is scheduled to have cataract surgery with Dr. Velasquez 08/27/2024 and 09/10/2024. Diabetes mellitus: Presently on insulin long and short-acting, Jardiance and Ozempic. Hypertension: Blood pressure 112/70 today currently on losartan 100 mg and amlodipine. CKD: last blood work shows stable Cr level. No history of CHF or stroke. Patient has a remote history of [place] and is medically managed. Patient is not currently on anticoagulation. Has had procedures in the past without complication. 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 Son No problems noted. Son No problems noted. Son No problems noted. Social History Household Members: Spouse Housing: Apartment Do you presently have visiting nurse or other home services: Yes Alcohol intake: former Patient Tobacco Use Status: Former Tobacco user Tobacco use type: Cigarette e-Cigarette/Vaping Use: Never Used Second Hand Smoke Exposure: No Advance Directives Date on File: 07/30/20 service: No Current occupational status: retired Cognitive needs: No Hearing needs: No Vision needs: Yes Questionnaire Thrive Questionnaire Date Thrive assessed: 01/16/24 AUDIT C Alcohol Use Questionnaire (AUDIT-C) 1. How often do you have a drink containing alcohol?: Monthly or less 2. How many drinks containing alcohol do you have on a typical day when you are drinking?: 1 or 2 3. How often do you have six or more drinks on one occasion?: Never Total Score: 1 Score Reviewed/Action Taken: No DAX-7 AMB Questionnaire DAX-7 Date DAX - 7 assessed: 01/16/24 Source: Developed by Drs. Jose Mandujano, Yamel Weaver, Adrian Dee and colleagues, with an educational barry from [employer]. Review of Systems Const Denies body aches, Denies fatigue, Denies fever(s), Denies frequent falls, Denies headache(s) and Denies weakness Eyes Reports no additional complaints and Denies change in vision ENT Denies dizziness, Denies facial pain, Denies headache(s) and Denies nasal congestion Card Denies chest pain, Denies syncope, Denies irregular heart rhythm, Denies leg edema, Denies lightheadedness and Denies dyspnea Resp Denies cough and Denies dyspnea GI Denies abdominal pain, Denies dyspepsia, Denies diarrhea, Denies nausea and Denies vomiting Denies dysuria, Denies urinary frequency, Denies urinary hesitancy and Denies urinary urgency Musc Denies back pain and Denies myalgias Skin/Breast Reports system reviewed and no additional complaints, except as documented Neuro Denies dizziness, Denies syncope, Denies frequent falls, Denies headache(s) and Denies weakness Psych Reports no additional complaints Endo Denies fatigue Physical exam (Primary Care) Vital Signs: Last Vital Signs Pulse 75 08/14/24 10:18 BP 112/70 08/14/24 10:18 Pulse Ox 99 08/14/24 10:18 Oxygen Delivery Method Room Air 08/14/24 10:18 BMI result Body Mass Index 26.5 Tobacco/Smoking Status: Tobacco use Status Tobacco use date assessed 01/16/24 08/14/24 10:13 Patient Tobacco Use Status Former Tobacco user 08/14/24 10:13 Tobacco use type Cigarette 08/14/24 10:13 e-Cigarette/Vaping Use Never Used 08/14/24 10:13 Thrive Assessment: Date of Thrive Assessment Date Thrive assessed 01/16/24 08/14/24 10:13 Const General: cooperative, healthy appearing, comfortable and no acute distress Orientation/consciousness: patient oriented x3 HENMT Head: Yes normocephalic Ears: hearing grossly normal bilaterally General nose exam: Normal external nose present Eyes General: appearance normal, both eyes and all related structures Conjunctivae: conjunctivae normal Neck Neck: Yes full ROM and Yes no lymphadenopathy Resp Effort & Inspection: normal respiratory effort Auscultation: clear to auscultation bilaterally, no crackles, no rales, no rhonchi and no wheezes Cardio Rate: regular rate Rhythm: regular rhythm Skin General skin exam: no rashes or lesions noted Neuro General: patient oriented x3 Gait exam (Neuro): Normal gait present Extrem General: Yes normal to inspection, Yes full ROM and No edema Psych Affect: normal affect Attitude: cooperative Insight: Good insight present (Psych) Judgement: Good judgement present (Psych) Results AMB Hemoglobin A1c AMB Hemoglobin A1c 8.4 % Last Edit by LAZRAO Ng on 08/14/24 10:29 Results Reviewed Results Reviewed: Laboratory Last Values Hgb A1c (Clinic) 8.4 % (4.0-6.0) H 08/14/24 09:51 Coding Level of Care Code Est Pt Level 3 (15561) Diagnoses Pre-op examination Z01.818 Assessment & Plan Assessment & Plan (1) Pre-op examination: Code(s): Z01.818 - Encounter for other preprocedural examination Category: Medical Plan: Regarding preop clearance, the patient is at moderate risk for proposed surgery due to age and comorbidities. Reviewed with the patient that no surgery is completely free of risk and that this examination is to assist the surgeon in reviewing informed consent. Discussed with patient the Ozempic would need to be stopped 1 week prior to surgery and the empagliflozin when deemed to be stopped 4 days prior to surgery. Patient's A1c elevated but improved today. Discussed with elevated blood sugars risk is increased for delayed wound healing and infection and ultimately it will be up to the surgeon's discretion if the procedure will proceed as planned. Blood work evaluated. No further workup needed at this time and may proceed with the contemplated procedure. Thank you very much for letting me participate in the care of this patient. Plan This note was constructed using voice recognition software. While every effort has been made to ensure accuracy and tube test technician, still areas may have been included sometimes these areas may affect the content or meeting of the given symptoms. Total time spent caring for the patient today was 30 minutes. This includes time spent before the visit reviewing the chart, time spent during the visit, and time spent after the visit and documentation. 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
[2024-08-14 10:18] VITALS: BP 112/70; PULSE 75; O2SAT 99; BMI 26.5
== END 2024-08-14 10:51 | disposition home or self-care (01) ==
PROVIDERS: PCP Internal Medicine
DX: E11.65 Type 2 diabetes mellitus with hyperglycemia (principal); Z79.4 Long term (current) use of insulin; Z01.818 Encounter for other preprocedural examination

== ENCOUNTER → 2024-08-14 10:08 | Outpatient (BNVA) | payer OTHER, SELFPAY | PROVIDERS: PCP Internal Medicine | DX: Z01.818 Encounter for other preprocedural examination (principal); E11.65 Type 2 diabetes mellitus with hyperglycemia; Z79.4 Long term (current) use of insulin | CPT/HCPCS: 83036; 99212 ==

== ENCOUNTER 2024-08-20 10:10 | Outpatient (AMB) | payer OTHER, SELFPAY ==
--- NOTE | 2024-08-20 10:12 | A.OFFVIS_ITS ---
Vital Signs 08/20/24 10:13 Height 5 ft 5 in Weight 160 lb 14.999 oz BMI 26.8 BP 130/76 Blood Pressure Location Rt brachial Position Sitting Pulse 78 Pulse Source Pulse Oximeter Intake Visit Reasons: DM Intake Note: Patient presents today for a follow-up on Type 2 Diabetes Mellitus: Last Diabetic eye exam was on: 05/2024, having cataracts surgery in August Last Podiatry exam was on: Does not see a Solid Waste Collection Worker Most recent HbA1c: 8.4% 08/14/2024 Random Glucose- 192 mg/dL, Today Superintendent Local Required: Yes Superintendent Local Language: Can Dragger Services: Superintendent Local Present Superintendent Local Name: LAZARO Lorenz/DINH KWOK Accompanied by: Self / Same As Patient Allergies gabapentin Allergy (Mild, Verified 08/20/24 10:20) Itching Medication List - Last Reconciled 08/20/24 by Vita Guido PA-C acetaminophen (Tylenol Extra Strength) 500 mg PO Q6H PRN albuterol sulfate 2.5 mg (3 mL) inhalation Q4-6H PRN atorvastatin 40 mg PO DAILY 90 days blood sugar diagnostic (OneTouch Verio test strips) test twice per day blood-glucose meter (OneTouch Verio Flex Start kit) test twice per day blood-glucose meter,continuous (FreeStyle Jarrod 3 [place]) Use daily As directed to monitor blood glucose blood-glucose sensor (FreeStyle Jarrod 3 Sensor device) Apply every 14 days As directed to monitor blood glucose cholecalciferol (vitamin D3) 25 mcg PO DAILY 90 days empagliflozin (Jardiance) 25 mg PO DAILY 90 days fluticasone propionate 110 mcg/actuation (Flovent HFA) 1 puff PO BID 30 days gabapentin 200 mg (2 x 100 mg) PO BEDTIME 90 days glucose (Dex4 Glucose) 16 grams (4 x 4 gram) PO Q15M PRN insulin glargine U-300 conc (Toujeo Max U-300 SoloStar) 50 units subcut BEDTIME insulin lispro (Humalog KwikPen (U-100) Insulin) 4 units (0.04 mL) subcut TID lancets test twice per day losartan 100 mg PO DAILY 90 days metformin 850 mg PO DAILY metoprolol succinate ER 100 mg PO DAILY nebulizers As directed pen needle, diabetic (1st Tier Unifine Pentips) Use 1 pen needle once a da Ventolin HFA 90 mcg/actuation (albuterol sulfate) 2 puffs inhalation Q6H PRN 30 days NS HPI HPI DM: Details: Patient is a 74-year-old male with a significant past medical history of hypertension, hyperlipidemia, chronic kidney disease, secondary hyperparathyroidism, anemia of chronic disease and diabetes presenting today for a follow-up regarding diabetes. Endo: Last A1c 8.4 down from 9.8. Current regimen: Jardiance 25 mg daily, metformin 850 mg daily, 50 units of Toujeo nightly, Humalog 4 units 3 times a day. He states he has become more compliant with the Ozempic and tolerates this well. No nausea or vomiting. He has noticed that his blood sugars have been much better. CGM-usage 96%, average glucose 168, GMI 7.3%. hyperglycemic 37%, in range 63%. No hypoglycemic events. -most hyperglycemic events are late afternoon Followed recently for diabetic Education and found this very helpful When he was 1st diagnosed with diabetes he was treated with metformin but could not tolerate higher doses. Nephro: He is following closely with Nephrology given his kidney disease and intermittent AKIs. CV: Blood pressure today in the office is 130/76. He is currently on metoprolol 100 mg, losartan 100 mg. Cholesterol is controlled with atorvastatin 40 mg. educational sign language interpreter: Selam [id number] [facility] Medical History Myocardial infarction Arthritis Pulmonary nodule Cavitary pneumonia MRSA bacteremia Hypovitaminosis D Former smoker Hyperparathyroidism Annual physical exam CAD (coronary artery disease) Former smoker Obese Microalbuminuria CKD (chronic kidney disease) stage 3, GFR 30-59 ml/min [facility] (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 Son No problems noted. Son No problems noted. Son No problems noted. Social History Household Members: Spouse Housing: Apartment Do you presently have visiting nurse or other home services: Yes Alcohol intake: former Patient Tobacco Use Status: Former Tobacco user Tobacco use type: Cigarette e-Cigarette/Vaping Use: Never Used Second Hand Smoke Exposure: No Advance Directives Date on File: 07/30/20 service: No Current occupational status: retired Cognitive needs: No Hearing needs: No Vision needs: Yes Physical Exam Vital Signs: Last Vital Signs Pulse 78 08/20/24 10:13 BP 130/76 08/20/24 10:13 BMI result Body Mass Index 26.8 Office Procedures Glucose Monitoring Details Details: See HPI 79829 - Glucose monitoring, continuous-physician I&R Procedure code (CPT) selection complete Results Reviewed Results Reviewed: Laboratory Tests 08/09/24 08/14/24 06:24 09:51 Sodium 143 Potassium 4.1 Chloride 107 Carbon Dioxide 29 Anion Gap 11 L BUN 16 Creatinine 1.40 Estimated GFR 50 Fasting Glucose 147 H Hgb A1c (Clinic) 8.4 H AST 21 ALT 23 Assessment & Plan Assessment & Plan (1) Uncontrolled type 2 diabetes mellitus with hyperglycemia, with long-term current use of insulin: Code(s): E11.65 - Type 2 diabetes mellitus with hyperglycemia; Z79.4 - 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 I do believe the Toujeo is not effective for the full 24 hours. We will switch to Tresiba. I will increase the Ozempic to 0.5 mg weekly. He will continue with the Jardiance in the metformin. He will follow up in 3 months. Sooner if needed.. (2) Essential hypertension: Code(s): I10 - Essential (primary) hypertension Category: Medical Plan: WNL. Continue current regimen (3) CKD (chronic kidney disease) stage 3, GFR 30-59 ml/min: Code(s): N18.30 - Chronic kidney disease, stage 3 unspecified Category: Medical Qualifiers: Chronic kidney disease stage 3 subtype: stage 3a (GFR 45-59) Qualified Code(s): N18.31 - Chronic kidney disease, stage 3a Plan: Stable. Medications: New semaglutide (Ozempic) 0.5 mg (0.736 mL) subcut QWEEK 3 mL 5RF insulin degludec (Tresiba FlexTouch U-200 insulin) 50 units (0.25 mL) subcut DAILY 9 mL 5RF Patient Instructions: Increase Ozempic to 0.5 mg weekly Switch to Tresiba from [facility]. Continue metformin and Jardiance Coding Level of Care Code Est Pt Level 4 (32490) Diagnoses Uncontrolled type 2 diabetes mellitus with hyperglycemia, with long-term current use of insulin E11.65; Z79.4 Essential hypertension I10 Stage 3a chronic kidney disease N18.31 Chronic kidney disease stage 3 subtype: stage 3a (GFR 45-59) CPT Codes Details - CPT: 25391 - Glucose monitoring, continuous-physician I&R ([id number])
[2024-08-20 10:13] VITALS: BP 130/76; PULSE 78; BMI 26.8
[2024-08-20 10:29] LABS: Glucose, Whole Blood 192 mg/dL (60-115)
== END 2024-08-20 10:39 | disposition home or self-care (01) ==
PROVIDERS: PCP Internal Medicine; Visit Provider Physician Assistant
DX: E11.65 Type 2 diabetes mellitus with hyperglycemia (principal); Z79.4 Long term (current) use of insulin; I10 Essential (primary) hypertension; N18.31 Chronic kidney disease, stage 3a

== ENCOUNTER → 2024-08-20 10:10 | Outpatient (BNVA) | payer OTHER, SELFPAY | PROVIDERS: PCP Internal Medicine; Visit Provider Physician Assistant | DX: E11.65 Type 2 diabetes mellitus with hyperglycemia (principal); I12.9 Hypertensive chronic kidney disease with stage 1 through stage 4 chronic kidney disease, or unspecified chronic kidney disease; E11.22 Type 2 diabetes mellitus with diabetic chronic kidney disease; N18.31 Chronic kidney disease, stage 3a; Z79.4 Long term (current) use of insulin | CPT/HCPCS: 82947; 99212 ==

== ENCOUNTER 2024-08-27 06:58 | Day surgery (SDC) | payer OTHER, SELFPAY ==
[2024-08-22 12:44] VITALS: BMI 26.5
[2024-08-27 07:29] VITALS: BP 142/77; PULSE 70; RESP 20; TEMP 36.9; O2SAT 97
--- NOTE | 2024-08-27 07:30 | HO.ANESPROP2 ---
HPI - Anesthesia Eval Consult details Narrative: 74 yo M presenting for right cataract extraction IOL insertion Anesthesia Pre-Procedure Meds Is the patient on any of the following meds?: GLP1/DPP4 and SGLT2 Inhib PMFSH Active Problems Active Problems: All Active Problems Uncontrolled type 2 diabetes mellitus with hyperglycemia, with long-term current use of insulin (Acute) Toe injury (Acute) Chronic disease anemia (Acute) Physical exam (Acute) Chest pain (Acute) Anemia (Acute) Tubular adenoma (Acute) DAX (generalized anxiety disorder) (Acute) Hospital discharge follow-up (Acute) Pre-op examination (Acute) Pneumonia (Acute) CKD (chronic kidney disease) stage 3, GFR 30-59 ml/min (Acute) Essential hypertension (Acute) Pulmonary nodule (Acute) Cavitary pneumonia (Acute) MRSA bacteremia (Acute) Hypovitaminosis D (Acute) Former smoker (Acute) Hyperparathyroidism (Acute) Annual physical exam (Acute) CAD (coronary artery disease) (Acute) Former smoker (Acute) Obese (Acute) Microalbuminuria (Acute) 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 Son No problems noted. Son No problems noted. Son No problems noted. Family history of problems with anesthesia: No Surgical History Surgical History H/O colonoscopy History of lipoma History of Problems with Anesthesia: No Social History Social History Household Members: Spouse Housing: Apartment Are you a primary child care sitter to a significant other at home: No Do you presently have visiting nurse or other home services: Yes Alcohol intake: former Patient Tobacco Use Status: Former Tobacco user Tobacco use type: Cigarette e-Cigarette/Vaping Use: Never Used Second Hand Smoke Exposure: No Use of substances other than those prescribed or required for medical reasons: No Are you DNR?: No Advance Directives: No Advance Directives Information Provided: Yes Advance Directives on File: No Advance Directives Date on File: 07/30/20 Recently lost weight without trying: No Nutrition Risks: No Nutritional Risk service: No Current occupational status: retired Cognitive needs: No Hearing needs: No Vision needs: Yes Meds Allergies Allergy/AdvReac Type Severity Reaction Status Date / Time gabapentin Allergy Mild Itching Verified 08/20/24 10:20 Active Medications: Current Medications Povidone Iodine (Povidone Iodine 5 % Ophth Soln 30 Ml Bottle) 1 appl EYE-RIGHT PREOP PRN PRN Reason: Pre-Op Surgical Implant Prophy Home Medications ?Medication ?Instructions ?Recorded ?Confirmed ?Last Taken ?Type nebulizers 10/28/22 08/22/24 Unknown History metformin 850 mg tablet 850 mg PO DAILY 06/11/24 08/22/24 Unknown History insulin glargine U-300 conc 300 50 unit subcut BEDTIME 08/22/24 08/22/24 Unknown History unit/mL (1.5 mL) subcutaneous pen Exam Exam Date and Time: 08/27/24 0730 Height,Weight and Vital Signs: Height 5 ft 5 in Weight 73.56 kg Last Vital Signs Temp 98.5 F 08/27/24 07:29 Pulse 70 08/27/24 07:29 Resp 20 08/27/24 07:29 BP 142/77 H 08/27/24 07:29 Pulse Ox 97 08/27/24 07:29 O2 Del Method Room Air 08/27/24 07:29 Pertinent Lab Results Pertinent Lab Results: Laboratory Tests 08/27/24 07:27 POC Glucose 106 Airway Mallampati Class: II TM Dist: >3cm Neck ROM: Full Loose/Missing/Broken Teeth: No (patient denies any loose or broken teeth) Heart: S1S2 Lungs: CTAB Assessment and Plan Assessment Anesthesia Assessment: Anesthesia Plan Discussed and Chart Reviewed Final Anesthetic Review Family History of Problems with Anesthesia: No History of Problems with Anesthesia: No NPO: Yes ASA Class: III Final Preanesthetic Review: No Changes in Pt Med Stat, Meds/Allgs Chart Reviewed, Consent Obtained/Reviewed (cupola liner helper at bedside for translation) and Anes Risks/Benef Reviewed Patient Risk: Intermediate Procedure Risk: Low Anesthetic Plan Anesthetic Plan: MAC: and Agree w/ Assess. and Plan Disposition: Standard PACU
[2024-08-27 07:31] LABS: Glucose, Whole Blood 106 mg/dL (60-115)
[2024-08-27 07:32] VITALS: BMI 27.0
[2024-08-27] MEDS: Cyclopentolate 1 % Ophth Sol 2 ML DRPBTL 1 DROP EYE-RIGHT ×3 (07:34)
[2024-08-27] MEDS: Tetracaine HCl/PF 0.5% Oph Sol 4 ML DROPS 1 DROP EYE-RIGHT (07:34)
[2024-08-27] MEDS: Ketorolac Tromethamine 0.5% Op 10 ML DROPS 1 DROP EYE-RIGHT ×3 (07:34→07:35)
[2024-08-27] MEDS: Phenylephrine HCL 2.5% Oph SoL 2 ML BOTTLE 1 DROP EYE-RIGHT ×3 (07:34→07:35)
[2024-08-27] MEDS: Tropicamide 1 % Ophth Sol 3 ML BTL 1 DROP EYE-RIGHT ×3 (07:36)
--- NOTE | 2024-08-27 07:40 | PC.NURSE ---
vebalized understanding ofd/c
--- NOTE | 2024-08-27 08:33 | MHC.SHP ---
Pre-Procedural Eval Section A - 24 Hr Update-Section A only Date of Service: 08/27/24 The patient is an INPATIENT: No Changes since office visit: No Cold of Flu in the past 2 weeks, No New Medical Problems, No Changes in Medication and No Patient answered all questions The patient has been examined within 24 hours of the surgical procedure. The History & Physical has been completed within 30 days and I have reviewed it.: Yes Section B - Complete if H&P > 30 days Chief Complaint: Age-related nuclear cataract, right eye Allergies: Allergies Allergy/AdvReac Type Severity Reaction Status Date / Time gabapentin Allergy Mild Itching Verified 08/20/24 10:20 Plan Diagnosis/Plan: Unchanged I have reviewed the history and physical and performed a pertinent physical examination on my patient. No changes have occurred unless specified. Time Spent With Patient Time: Total time managing care of this patient today ____ minutes.
--- NOTE | 2024-08-27 08:34 | P.PCNO_ITS ---
Ophthalmology Procedure Procedure Date of Service: 08/27/24 Ophthalmology Viscoelastic: Healon Duet Dual Pack Pro Ophthalmology Lenses: IOL Acrysof MP - [id number] (21.5) Procedure Notes: PREOPERATIVE DIAGNOSIS: Decreased visual acuity right eye secondary to cataract POSTOPERATIVE DIAGNOSIS: Same PROCEDURE: Right cataract extraction with intraocular lens insertion SURGEON: Zurdo Velasquez M.D. ANESTHESIA: Topical/MAC ESTIMATED BLOOD LOSS: None COMPLICATIONS: None After obtaining informed consent, the patient was brought to the operating room suite and placed in the supine position. After adequate sedation per anesthesia, topical drops of Tetracaine were given to the right eye. The eye was then prepped and draped in the usual sterile fashion. The operating room microscope was then positioned over the operative eye and a lid speculum placed. A paracentesis was created. Viscoelastic was then instilled into the anterior chamber. A three plane incision was then created temporally, utilizing a 2.85 mm keratome. Capsulotomy forceps were then utilized to create a circular tear capsulotomy. Hydrodissection and hydrodelineation were carried out until adequate mobilization of the nucleus occurred. Phacoemulsification was then utilized to remove the dense central nu cleus followed by removal of the cortical material utilizing the automated aspiration irrigation unit. Viscoelastic was instilled into the posterior capsular bag followed by placement of a posterior chamber intraocular lens without difficulty. The residual Viscoelastic was then removed utilizing the automated IA machine. The wound was checked and found to be watertight. The patient tolerated the procedure well and the lid speculum was removed. Intracameral injection of Vigamox 0.1 mL followed by a subtenon injection of Kenalog-40 0.2 mL were administered. The patient will be seen in the a.m.
[2024-08-27 09:02] VITALS: BP 119/66; PULSE 64; RESP 16; TEMP 36.1; O2SAT 98
[2024-08-27 09:17] VITALS: BP 124/76; PULSE 68; RESP 16; TEMP 36.1; O2SAT 98
== END 2024-08-27 09:21 | disposition home or self-care (01) ==
PROVIDERS: PCP Internal Medicine; Visit Provider Ophthalmology
PROC: (CPT 66985; principal; 2024-08-27 08:30)
DX: H25.11 Age-related nuclear cataract, right eye (principal); H52.4 Presbyopia; H43.393 Other vitreous opacities, bilateral; H18.413 Arcus senilis, bilateral; E11.22 Type 2 diabetes mellitus with diabetic chronic kidney disease; I12.9 Hypertensive chronic kidney disease with stage 1 through stage 4 chronic kidney disease, or unspecified chronic kidney disease; N18.30 Chronic kidney disease, stage 3 unspecified; E11.65 Type 2 diabetes mellitus with hyperglycemia; E21.3 Hyperparathyroidism, unspecified; I25.10 Atherosclerotic heart disease of native coronary artery without angina pectoris; I25.2 Old myocardial infarction; J45.909 Unspecified asthma, uncomplicated; Z79.4 Long term (current) use of insulin; Z79.84 Long term (current) use of oral hypoglycemic drugs; Z79.85 Long-term (current) use of injectable non-insulin antidiabetic drugs; Z79.899 Other long term (current) drug therapy; Z79.51 Long term (current) use of inhaled steroids; Z88.8 Allergy status to other drugs, medicaments and biological substances; Z87.891 Personal history of nicotine dependence
CPT/HCPCS: 66984; 82947; J2250; J3010; J3301; V2630

== ENCOUNTER 2024-09-03 07:45 | Outpatient (AMB) | payer OTHER, SELFPAY ==
--- NOTE | 2024-09-03 07:55 | A.OFFVIS_ITS ---
Intake Intake Visit Reasons: DM 60 min-no mailbox Principal Account Clerk Services: Principal Account Clerk Offered & Declined Accompanied by: Self / Same As Patient Allergies gabapentin Allergy (Mild, Verified 08/20/24 10:20) Itching HPI Comprehensive Diabetes Asmnt Most Recent Diabetes Results: Hemoglobin A1c 9.0 % 11/02/19 Microalb/Creat Ratio 34.4 ug/mg cr (<30) H 08/09/24 Cholesterol 116 mg/dL (<200) 05/21/24 HDL Cholesterol 35 mg/dL (>40) L 05/21/24 Triglycerides 107 mg/dL (<150) 05/21/24 Creatinine 1.40 mg/dL (0.5-1.4) 08/09/24 Blood Urea Nitrogen 16 mg/dL (9-16) 08/09/24 Sodium 143 mmol/L (135-145) 08/09/24 Potassium 4.1 mmol/L (3.3-5.1) 08/09/24 Chloride 107 mmol/L (96-108) 08/09/24 Carbon Dioxide 29 mmol/L (22-29) 08/09/24 Calcium 10.8 mg/dL (8.4-10.2) H 08/09/24 AST 21 U/L (5-37) 08/09/24 ALT 23 U/L (0-40) 08/09/24 Total Protein 7.0 g/dL (6.5-8.0) 08/09/24 Albumin 4.2 g/dL (3.5-5.0) 08/09/24 [facility] Medical History Myocardial infarction Arthritis Pulmonary nodule Cavitary pneumonia MRSA bacteremia Hypovitaminosis D Former smoker Hyperparathyroidism Annual physical exam CAD (coronary artery disease) Former smoker Obese Microalbuminuria CKD (chronic kidney disease) stage 3, GFR 30-59 ml/min assisted (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 Son No problems noted. Son No problems noted. Son No problems noted. Social History Household Members: Spouse Housing: Apartment Are you a primary customer care professional to a significant other at home: No Do you presently have visiting nurse or other home services: Yes Alcohol intake: former Patient Tobacco Use Status: Former Tobacco user Tobacco use type: Cigarette e-Cigarette/Vaping Use: Never Used Second Hand Smoke Exposure: No Advance Directives Date on File: 07/30/20 service: No Current occupational status: retired Cognitive needs: No Hearing needs: No Vision needs: Yes Assessment & Plan Assessment & Plan (1) Uncontrolled type 2 diabetes mellitus with hyperglycemia, with long-term current use of insulin: Code(s): E11.65 - Type 2 diabetes mellitus with hyperglycemia; Z79.4 - terminal clerk (current) use of insulin Plan: Learning objectives: The patient was provided with verbal and written education on the following topics as outlined below. Patient questions/concerns, patient's A1c on 08/14/2024 8.4% down from 05/21/2024 of 9.8% Patient currently is not using Jarrod 3 sensor, stated that pharmacy could not get the sensors for him. Patient has been checking glucose twice a day with meter Fasting glucose 76-143 mg/dL Post supper glucose 130-295 mg/dL At last visit patient was instructed to increase Ozempic from 0.25 mg to 0.5 mg, patient has not done this yet Patient also reports taking Jardiance 25 mg daily Tresiba 50 units daily Humalog 4 units prior to meals Demonstrated patient how to increase Ozempic dose from 0.25 mg to 0.5 mg, , due to some fasting blood sugars being in the 70s recommended once patient increase his Ozempic dose to decrease Tresiba to 44 units, if patient experiences hypoglycemia instructed to contact confectionery cooker or physician's assistant broker Patient has prescription for glucose tabs, but has not picked him up from pharmacy. Recommended he discuss with pharmacy if glucose tabs are covered under his insurance. If they are not recommended he purchase [id number] glucose tabs The patient met all learning objectives and was able to verbalize understanding and provide teach back of education topics discussed . The patient was provided with the opportunity to ask questions and all questions were answered. Topics covered in today?s session included: Medications (If applicable) * Name of medication? * Dosing/administration instructions? * Mechanism of action? * Potential side effects? * Potential adverse reaction and appropriate treatment? * Review onset, peak, duration Assess for concerns re: insurance coverage, cost, barriers to compliance Insulin/Injectables (If applicable) * Storage/care of insulin?? * Injection sites? * Site rotation? * Onset, peak, duration * Drawing up insulin? * Injecting insulin/other injectables? * Sharps disposal Continuous blood glucose monitoring (if applicable) Hypoglycemia and Hyperglycemia * Signs and symptoms? * Causes?? * Treatment? * Preventing hypoglycemia? * When to seek medical attention Target Goals: * Blood glucose targets and how you feel when your blood glucose is in and out of your target ranges. * Monitoring and knowing your A1C. * What can make blood glucose go up and down and preventing high and low blood glucose. * Review of blood sugar targets in expected goal range and outside of expected goal range. * Problem solving and preventing hyper/hypoglycemia. * Sick day management of diabetes. * Using blood sugar results in decision making process in managing diabetes. ?Patient was receptive to information provided and participated in the discuss ion. Asked?appropriate questions and demonstrated good understanding of the topics discussed.? ? Educational Materials: The patient was provided with the following written educational materials: Target Goal handout Smart Goal:? Patient will use rule of 15s to treat hypoglycemia Patient Response to instructions: Comprehension of Instructions: good Readiness to make changes:? Action How confident they feel about making changes: Positive Portions of this note were created using voice recognition software, please excuse any words or phrases that may have been misinterpreted. Patient Instructions: Patient will follow-up with confectionery cooker 4 months Patient will contact confectionery cooker or physician's assistant broker if he experiences increase in hypoglycemia Coding Level of Care Code Est Pt Level 1 (64091) Diagnoses Uncontrolled type 2 diabetes mellitus with hyperglycemia, with long-term current use of insulin E11.65; Z79.4
== END 2024-09-03 08:23 | disposition home or self-care (01) ==
PROVIDERS: PCP Internal Medicine; Visit Provider Registered Nurse Diabetes Educator
DX: E11.65 Type 2 diabetes mellitus with hyperglycemia (principal); Z79.4 Long term (current) use of insulin

== ENCOUNTER → 2024-09-03 07:45 | Outpatient (BNVA) | payer OTHER, SELFPAY | PROVIDERS: PCP Internal Medicine; Visit Provider Registered Nurse Diabetes Educator | DX: E11.65 Type 2 diabetes mellitus with hyperglycemia (principal); Z71.89 Other specified counseling; Z79.4 Long term (current) use of insulin | CPT/HCPCS: 99211 ==

== ENCOUNTER 2024-09-06 07:37 | Outpatient (AMB) | payer OTHER, SELFPAY ==
--- NOTE | 2024-09-06 07:53 | A.OFFPC_ITS ---
Vital Signs 09/06/24 07:56 Height 5 ft 5 in Weight 160 lb BMI 26.6 BP 130/70 Blood Pressure Location Lt brachial Position Sitting Intake Visit Reasons: dm Intake Note: Patient here for a follow up DM Oxygen Plant Operator Required: No Accompanied by: Self / Same As Patient Allergies gabapentin Allergy (Mild, Verified 09/06/24 08:32) Itching Medication List - Last Reconciled 09/06/24 by Rose Mary Mcneill MD acetaminophen (Tylenol Extra Strength) 500 mg PO Q6H PRN albuterol sulfate 2.5 mg (3 mL) inhalation Q4-6H PRN atorvastatin 40 mg PO DAILY 90 days blood sugar diagnostic ([employer].comTouch Verio test strips) test twice per day blood-glucose meter (Cedip Infrared Systemsuch Verio Flex Start kit) test twice per day blood-glucose meter,continuous (FreeStyle Jarrod 3 [place]) Use daily As directed to monitor blood glucose blood-glucose sensor (FreeStyle Jarrod 3 Sensor device) Apply every 14 days As directed to monitor blood glucose cholecalciferol (vitamin D3) 25 mcg PO DAILY 90 days empagliflozin (Jardiance) 25 mg PO DAILY 90 days fluticasone propionate 110 mcg/actuation (Flovent HFA) 1 puff PO BID 30 days gabapentin 200 mg (2 x 100 mg) PO BEDTIME 90 days glucose (Dex4 Glucose) 16 grams (4 x 4 gram) PO Q15M PRN insulin glargine U-300 conc 50 units subcut BEDTIME insulin lispro (Humalog KwikPen (U-100) Insulin) 4 units (0.04 mL) subcut TID lancets test twice per day losartan 100 mg PO DAILY 90 days metformin 850 mg PO DAILY metoprolol succinate ER 100 mg PO DAILY nebulizers As directed pen needle, diabetic (1st Tier Unifine Pentips) Use 1 pen needle once a da semaglutide (Ozempic) 0.5 mg (0.736 mL) subcut QWEEK Ventolin HFA 90 mcg/actuation (albuterol sulfate) 2 puffs inhalation Q6H PRN 30 days NS Tobacco use date assessed: 01/16/24 Fall risk assessment: No Falls in past year Last assessed Fall Risk: 09/06/24 Dental Screening Dental Screen Date: 09/06/24 Did you have a dental visit in the last 12 months?: No Did you have a dental problem in the last 6 months where you did not have access to dental care?: No Was dental information given to patient?: Patient has dentist HPI HPI Comments History of Present Illness Details This is a 74-year-old male with uncontrolled diabetes mellitus type 2 on long-term current use of insulin, hypertension, mild persistent asthma and chronic kidney disease stage 3 that comes today for follow-up on his conditions. Last A1c was elevated and he follows with endocrinology which did few changes in his medication. He use rescue inhaler once a month. Blood pressure stable. Last GFR was 50 and he is aware has to avoid NSAIDs. No chest pain or shortness on breath. Compliant with medications. 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 Son No problems noted. Son No problems noted. Son No problems noted. Social History Household Members: Spouse Housing: Apartment Are you a primary career information specialist to a significant other at home: No Do you presently have visiting nurse or other home services: Yes Alcohol intake: former Patient Tobacco Use Status: Former Tobacco user Tobacco use type: Cigarette e-Cigarette/Vaping Use: Never Used Second Hand Smoke Exposure: No Advance Directives Date on File: 07/30/20 service: No Current occupational status: retired Cognitive needs: No Hearing needs: No Vision needs: Yes Questionnaire Thrive Questionnaire Date Thrive assessed: 01/16/24 DAX-7 AMB Questionnaire DAX-7 Date DAX - 7 assessed: 01/16/24 Source: Developed by Drs. Jose Mandujano, Yamel WeaverAdrian and colleagues, with an educational barry from [employer]. Review of Systems Const All systems reviewed & are unremarkable except as noted in HPI and below Card Denies chest pain at rest, Denies chest pain with activity, Denies edema, Denies irregular heart rhythm, Denies claudication, Denies dyspnea, Denies dyspnea on exertion, Denies orthopnea, Denies paroxysmal nocturnal dyspnea and Denies slow heart rate Resp Denies cough, Denies dyspnea and Denies dyspnea on exertion GI Denies abdominal pain, Denies change in bowel habits, Denies excessive flatus, Denies nausea and Denies vomiting Physical exam (Primary Care) Vital Signs: Last Vital Signs BP 130/70 09/06/24 07:56 BMI result Body Mass Index 26.6 Tobacco/Smoking Status: Tobacco use Status Tobacco use date assessed 01/16/24 09/06/24 07:56 Patient Tobacco Use Status Former Tobacco user 09/06/24 07:56 Tobacco use type Cigarette 09/06/24 07:56 e-Cigarette/Vaping Use Never Used 09/06/24 07:56 Thrive Assessment: Date of Thrive Assessment Date Thrive assessed 01/16/24 09/06/24 07:56 Resp Effort & Inspection: normal respiratory effort Auscultation: clear to auscultation bilaterally Cardio Jugular venous distension: no JVD Rate: regular rate Rhythm: regular rhythm Heart sounds: S1 normal heart sound present and S2 normal heart sound present Extrem General: Yes full ROM Office Procedures Flu Questionnaire Does the patient have a severe egg allergy?: No Does the patient have severe life threatening allergies?: No Does the patient have a fever or illness today?: No Has the patient ever had Guillain-[place] Syndrome?: No Has the patient ever had any past reaction to a flu shot?: No Immunizations Fluarix Triv [id number] (PF) 45 mcg (15 mcg x 3)/0.5 mL IM syringe Performing Provider: Rose Mary Mcneill MD Performing Location: [facility] Administered by: LAZARO Fletcher on 09/06/24 08:43 Dose Route Admin Location Dispensed Lot Number Expiration Date [facility] Brazing Machine Feeder 0.5 mL IM Right Deltoid 0.5 mL [id number] 04/22/25 [id number] V2contact VIS Given Date VIS Provided VIS Publication Date 09/06/24 Single Vaccine 21 Eligibility Eligibility Date Funding Source Not [facility] Eligible 09/06/24 Private Coding Level of Care Code Est Pt Level 4 (10943) Complex EM visit Add On G2211 Diagnoses Uncontrolled type 2 diabetes mellitus with hyperglycemia, with long-term current use of insulin E11.65; Z79.4 Stage 3a chronic kidney disease N18.31 Chronic kidney disease stage 3 subtype: stage 3a (GFR 45-59) Essential hypertension I10 Mild persistent allergic asthma J45.30 Time Spent (min) 23 Assessment & Plan Assessment & Plan (1) Uncontrolled type 2 diabetes mellitus with hyperglycemia, with long-term current use of insulin: Code(s): E11.65 - Type 2 diabetes mellitus with hyperglycemia; Z79.4 - custodial (current) use of insulin Category: Medical Plan: Continue insulin, metformin and Jardiance. A1c goal is equal or less than 7%. Diabetic eye exam yearly. (2) CKD (chronic kidney disease) stage 3, GFR 30-59 ml/min: Code(s): N18.30 - Chronic kidney disease, stage 3 unspecified Category: Medical Qualifiers: Chronic kidney disease stage 3 subtype: stage 3a (GFR 45-59) Qualified Code(s): N18.31 - Chronic kidney disease, stage 3a Plan: Avoid NSAIDs. Keep blood pressure less than 130/80. (3) Essential hypertension: Code(s): I10 - Essential (primary) hypertension Category: Medical Plan: Continue losartan. Blood pressure goal is equal or less than 130/80. (4) Mild persistent allergic asthma: Code(s): J45.30 - Mild persistent asthma, uncomplicated Category: Medical Plan: Use rescue inhaler as needed. Orders: Orders Comprehensive [place]. Panel Fast Today E11.65 - Type 2 diabetes mellitus with hyperglycemia, Z79.4 - custodial (current) use of insulin PSA,Total (Free>4and<10) Today R35.1 - Nocturia Influenza [id number] Immunization Today Z23 - Encounter for immunization Lipid Panel Today E78.5 - Hyperlipidemia, unspecified Vitamin D 25-OH Total Today E55.9 - Vitamin D deficiency, unspecified
[2024-09-06 07:56] VITALS: BP 130/70; BMI 26.6
== END 2024-09-06 08:45 | disposition home or self-care (01) ==
PROVIDERS: PCP Internal Medicine; Visit Provider Internal Medicine
DX: E11.65 Type 2 diabetes mellitus with hyperglycemia (principal); Z79.4 Long term (current) use of insulin; N18.31 Chronic kidney disease, stage 3a; I10 Essential (primary) hypertension; J45.30 Mild persistent asthma, uncomplicated; Z23 Encounter for immunization

== ENCOUNTER → 2024-09-06 07:37 | Outpatient (BNVA) | payer OTHER, SELFPAY | PROVIDERS: PCP Internal Medicine; Visit Provider Internal Medicine | DX: Z23 Encounter for immunization (principal); E11.65 Type 2 diabetes mellitus with hyperglycemia; I12.9 Hypertensive chronic kidney disease with stage 1 through stage 4 chronic kidney disease, or unspecified chronic kidney disease; E11.22 Type 2 diabetes mellitus with diabetic chronic kidney disease; N18.31 Chronic kidney disease, stage 3a; J45.30 Mild persistent asthma, uncomplicated; Z79.4 Long term (current) use of insulin | CPT/HCPCS: 90471; 90656; 99212 ==

== ENCOUNTER 2024-09-10 08:30 | Day surgery (SDC) | payer OTHER, SELFPAY ==
[2024-08-22 12:50] VITALS: BMI 26.5
--- NOTE | 2024-09-06 13:53 | HO.ANESPROP2 ---
Documented by User: Sally Pate NP 09/06/24 13:54 HPI - Anesthesia Eval Consult details Narrative: 74yo M for Left Cataract Extraction IOL Insertion Right eye 08/27/24: Fent 25, Midaz 2 Anesthesia Pre-Procedure Meds Is the patient on any of the following meds?: GLP1/DPP4 and SGLT2 Inhib PMFSH Active Problems Active Problems: All Active Problems Mild persistent allergic asthma (Acute) Uncontrolled type 2 diabetes mellitus with hyperglycemia, with long-term current use of insulin (Acute) Toe injury (Acute) Chronic disease anemia (Acute) Physical exam (Acute) Chest pain (Acute) Anemia (Acute) Tubular adenoma (Acute) DAX (generalized anxiety disorder) (Acute) Hospital discharge follow-up (Acute) Pre-op examination (Acute) Pneumonia (Acute) CKD (chronic kidney disease) stage 3, GFR 30-59 ml/min (Acute) Essential hypertension (Acute) Pulmonary nodule (Acute) Cavitary pneumonia (Acute) MRSA bacteremia (Acute) Hypovitaminosis D (Acute) Former smoker (Acute) Hyperparathyroidism (Acute) Annual physical exam (Acute) CAD (coronary artery disease) (Acute) Former smoker (Acute) Obese (Acute) Microalbuminuria (Acute) 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 Son No problems noted. Son No problems noted. Son No problems noted. Family history of problems with anesthesia: No Surgical History Surgical History H/O colonoscopy History of lipoma History of Problems with Anesthesia: No Social History Social History Household Members: Spouse Housing: Apartment Are you a primary health care facilities inspector to a significant other at home: No Do you presently have visiting nurse or other home services: Yes Alcohol intake: former Patient Tobacco Use Status: Former Tobacco user Tobacco use type: Cigarette e-Cigarette/Vaping Use: Never Used Second Hand Smoke Exposure: No Are you DNR?: No Advance Directives: No Advance Directives Information Provided: Yes Advance Directives on File: No Advance Directives Date on File: 07/30/20 Recently lost weight without trying: No Nutrition Risks: No Nutritional Risk service: No Current occupational status: retired Cognitive needs: No Hearing needs: No Vision needs: Yes Meds Allergies Allergy/AdvReac Type Severity Reaction Status Date / Time gabapentin Allergy Mild Itching Verified 09/10/24 09:46 Home Medications ?Medication ?Instructions ?Recorded ?Confirmed ?Last Taken ?Type nebulizers 10/28/22 09/10/24 Unknown History metformin 850 mg tablet 850 mg PO DAILY 06/11/24 09/10/24 Unknown History insulin glargine U-300 conc 300 50 unit subcut BEDTIME 08/22/24 09/10/24 Unknown History unit/mL (1.5 mL) subcutaneous pen amlodipine 10 mg tablet 10 mg PO DAILY 09/10/24 09/10/24 Unknown History Exam Height,Weight and Vital Signs: Height 5 ft 5 in Weight 72.121 kg Assessment and Plan Assessment Anesthesia Assessment: Chart Reviewed Final Anesthetic Review Family History of Problems with Anesthesia: No History of Problems with Anesthesia: No Documented by User: Annette Raya MD 09/10/24 10:15 [facility] Past Medical History Medical History Myocardial infarction Arthritis Pulmonary nodule Cavitary pneumonia MRSA bacteremia Hypovitaminosis D Former smoker Hyperparathyroidism Annual physical exam CAD (coronary artery disease) Former smoker Obese Microalbuminuria CKD (chronic kidney disease) stage 3, GFR 30-59 ml/min 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 Son No problems noted. Son No problems noted. Son No problems noted. Surgical History Surgical History H/O colonoscopy History of lipoma Social History Social History Household Members: Spouse Housing: Apartment Are you a primary health care facilities inspector to a significant other at home: No Do you presently have visiting nurse or other home services: Yes Alcohol intake: former Patient Tobacco Use Status: Former Tobacco user Tobacco use type: Cigarette e-Cigarette/Vaping Use: Never Used Second Hand Smoke Exposure: No Are you DNR?: No Advance Directives: No Advance Directives Information Provided: Yes Advance Directives on File: No Advance Directives Date on File: 07/30/20 Recently lost weight without trying: No Nutrition Risks: No Nutritional Risk service: No Current occupational status: retired Cognitive needs: No Hearing needs: No Vision needs: Yes Meds Allergies Allergy/AdvReac Type Severity Reaction Status Date / Time gabapentin Allergy Mild Itching Verified 09/10/24 09:46 Home Medications ?Medication ?Instructions ?Recorded ?Confirmed ?Last Taken ?Type nebulizers 10/28/22 09/10/24 Unknown History metformin 850 mg tablet 850 mg PO DAILY 06/11/24 09/10/24 Unknown History insulin glargine U-300 conc 300 50 unit subcut BEDTIME 08/22/24 09/10/24 Unknown History unit/mL (1.5 mL) subcutaneous pen amlodipine 10 mg tablet 10 mg PO DAILY 09/10/24 09/10/24 Unknown History Exam Airway Mallampati Class: II TM Dist: >3cm Neck ROM: Full Loose/Missing/Broken Teeth: No Heart: RRR Lungs: CTA Assessment and Plan Assessment Anesthesia Assessment: Anesthesia Plan Discussed Final Anesthetic Review NPO: Yes ASA Class: III Final Preanesthetic Review: Meds/Allgs Chart Reviewed, Consent Obtained/Reviewed and Anes Risks/Benef Reviewed Patient Risk: Intermediate Procedure Risk: Low Anesthetic Plan Anesthetic Plan: MAC: Disposition: Standard PACU
[2024-09-10 09:54] VITALS: BMI 28.0
[2024-09-10 09:58] VITALS: BP 134/75; PULSE 60; RESP 16; TEMP 36.5; O2SAT 99
[2024-09-10] MEDS: Tetracaine HCl/PF 0.5% Oph Sol 4 ML DROPS 1 DROP EYE-LEFT (10:02)
[2024-09-10] MEDS: Cyclopentolate 1 % Ophth Sol 2 ML DRPBTL 1 DROP EYE-LEFT ×3 (10:04→10:22)
[2024-09-10] MEDS: Ketorolac Tromethamine 0.5% Op 10 ML DROPS 1 DROP EYE-LEFT ×3 (10:09→10:24)
[2024-09-10] MEDS: Tropicamide 1 % Ophth Sol 3 ML BTL 1 DROP EYE-LEFT ×2 (10:10→10:19)
[2024-09-10 10:11] LABS: Glucose, Whole Blood 88 mg/dL (60-115)
[2024-09-10] MEDS: Phenylephrine HCL 2.5% Oph SoL 2 ML BOTTLE 1 DROP EYE-LEFT ×2 (10:14→10:20)
[2024-09-10] MEDS: Lactated Ringers 500 ML 50 ML IV (10:16)
--- NOTE | 2024-09-10 10:20 | MHC.SHP ---
Pre-Procedural Eval Section A - 24 Hr Update-Section A only Date of Service: 09/10/24 The patient is an INPATIENT: No Changes since office visit: No Cold of Flu in the past 2 weeks, No New Medical Problems, No Changes in Medication and No Patient answered all questions The patient has been examined within 24 hours of the surgical procedure. The History & Physical has been completed within 30 days and I have reviewed it.: Yes Section B - Complete if H&P > 30 days Chief Complaint: Age-related nuclear cataract, left eye Allergies: Allergies Allergy/AdvReac Type Severity Reaction Status Date / Time gabapentin Allergy Mild Itching Verified 09/10/24 09:46 Plan Diagnosis/Plan: Unchanged I have reviewed the history and physical and performed a pertinent physical examination on my patient. No changes have occurred unless specified. Time Spent With Patient Time: Total time managing care of this patient today ____ minutes.
--- NOTE | 2024-09-10 10:20 | HO.PNOPHT ---
Ophthalmology Procedure Procedure Date of Service: 09/10/24 Ophthalmology Viscoelastic: Healon Duet Dual Pack Pro Ophthalmology Lenses: IOL Acrysof MP - [id number] (22.5) Procedure Notes: PREOPERATIVE DIAGNOSIS: Decreased visual acuity left eye secondary to cataract POSTOPERATIVE DIAGNOSIS: Same PROCEDURE: Left cataract extraction with intraocular lens insertion SURGEON: Zurdo Velasquez M.D. ANESTHESIA: Topical/MAC ESTIMATED BLOOD LOSS: None COMPLICATIONS: Poor dilation, [place] Ring placement After obtaining informed consent, the patient was brought to the operation room suite and placed in the supine position. After adequate sedation per anesthesia, topical drops of Tetracaine were given to the left eye. The eye was then prepped and draped in the usual sterile fashion. The operating room microscope was then positioned over the operative eye and a lid speculum placed. A paracentesis was created. Viscoelastic was then instilled into the anterior chamber. A three plane incision was then created temporally, utilizing a 2.85 mm keratome. Poor dilation required placement og [place]uy[place] RingCapsulotomy forceps were then utilized to create a circular tear capsulotomy. Hydrodissection and hydrodelineation were carried out until adequate mobilization of the nucleus occurred. Phacoemulsification was then utilized to remove the dense central nucleus followed by removal of the cortical material utilizing the automated aspiration irrigation unit. Viscoat elastic was instilled into the posterior capsular bag followed by placement of a posterior chamber intraocular lens without difficulty. [place] Ring removed.The residual Viscoat elastic was then removed utilizing the automated IA machine. The wound was check and found to be watertight. The patient tolerated the procedure well and the lid speculum was removed. Intracameral injection of Vigamox 0.1 mL followed by a subtenon injection of Kenalog-40 0.2 mL were administered. The patient will be seen in the a.m.
[2024-09-10 10:46] VITALS: BP 140/76; PULSE 60; RESP 16; TEMP 36.7; O2SAT 100
== END 2024-09-10 11:03 | disposition home or self-care (01) ==
PROVIDERS: PCP Internal Medicine; Visit Provider Ophthalmology
PROC: (CPT 66985; principal; 2024-09-10 11:00)
DX: H59.88 Other intraoperative complications of eye and adnexa, not elsewhere classified (principal); Y84.8 Other medical procedures as the cause of abnormal reaction of the patient, or of later complication, without mention of misadventure at the time of the procedure; H25.12 Age-related nuclear cataract, left eye; H57.09 Other anomalies of pupillary function; H54.7 Unspecified visual loss; I10 Essential (primary) hypertension; E11.9 Type 2 diabetes mellitus without complications; E78.00 Pure hypercholesterolemia, unspecified; Z79.84 Long term (current) use of oral hypoglycemic drugs; Z79.85 Long-term (current) use of injectable non-insulin antidiabetic drugs; Z79.899 Other long term (current) drug therapy; Z87.891 Personal history of nicotine dependence
CPT/HCPCS: 66982; 82947; J2250; J3301; V2630

== ENCOUNTER 2024-09-17 06:24 | Outpatient (REF) | payer OTHER, SELFPAY ==
[2024-09-17 08:09] LABS: Alanine Aminotransferase 18 U/L (0-40); Alkaline Phosphatase 123 U/L (39-117); Anion Gap 12 (12-20); Aspartate Amino Transferase 19 U/L (5-37); Bilirubin Total 0.4 mg/dL (0.0-1.0); Blood Urea Nitrogen 19 mg/dL (9-16); Calcium 9.7 mg/dL (8.4-10.2); Carbon Dioxide 26 mmol/L (22-29); Chloride 104 mmol/L (96-108); Cholesterol 130 mg/dL (<200); Estimated Glomerular Filt Rate 43; Glucose Fasting 131 mg/dL (60-99); HDL Cholesterol 40 mg/dL (>40); LDL Cholesterol Calculated 68 mg/dL (<100); Potassium 4.3 mmol/L (3.3-5.1); Sodium 138 mmol/L (135-145); Total Protein 6.6 g/dL (6.5-8.0); Triglycerides 113 mg/dL (<150)
[2024-09-17 08:17] LABS: PSA,Total (Free>4and<10) 2.63 ng/mL (0.00-4.00)
[2024-09-17 08:27] LABS: Vitamin D 25-OH Total 35.5 ng/mL (>30)
== END 2024-09-17 06:25 | disposition home or self-care (01) ==
LOC: HO.LAB 06:24
PROVIDERS: PCP Internal Medicine; Visit Provider Internal Medicine
DX: E11.65 Type 2 diabetes mellitus with hyperglycemia (principal); R35.1 Nocturia; Z79.4 Long term (current) use of insulin; E78.5 Hyperlipidemia, unspecified; E55.9 Vitamin D deficiency, unspecified; Z12.5 Encounter for screening for malignant neoplasm of prostate
CPT/HCPCS: 36415; 80053; 80061; 82306; 84153

== ENCOUNTER 2024-09-24 09:25 | Outpatient (AMB) | payer OTHER, SELFPAY ==
[2024-09-24 09:49] VITALS: BP 124/70; PULSE 65; O2SAT 97; BMI 26.6
--- NOTE | 2024-09-24 09:49 | HO.NEPHOV ---
Vital Signs 09/24/24 09:49 Height 5 ft 5 in Weight 160 lb BMI 26.6 BP 124/70 Blood Pressure Location Lt brachial Position Sitting Pulse 65 Pulse Source Pulse Oximeter Pulse Oximetry (%) 97 Oxygen Delivery Method Room Air Intake Visit Reasons: CKD/ Conf Natural Resource Officer Required: Yes Natural Resource Officer Services: Natural Resource Officer Offered & Declined Accompanied by: Self / Same As Patient Allergies gabapentin Allergy (Mild, Verified 09/24/24 09:51) Itching Medication List - Last Reconciled 09/24/24 by Maikol Davis MD acetaminophen (Tylenol Extra Strength) 500 mg PO Q6H PRN albuterol sulfate 2.5 mg (3 mL) inhalation Q4-6H PRN amlodipine 10 mg PO DAILY atorvastatin 40 mg PO DAILY 90 days blood sugar diagnostic (G[employer] Verio test strips) test twice per day blood-glucose meter ([employer] Verio Flex Start kit) test twice per day blood-glucose meter,continuous (FreeStyle Jarrod 3 [place]) Use daily As directed to monitor blood glucose blood-glucose sensor (FreeStyle Jarrod 3 Sensor device) Apply every 14 days As directed to monitor blood glucose cholecalciferol (vitamin D3) 25 mcg PO DAILY 90 days empagliflozin (Jardiance) 25 mg PO DAILY 90 days fluticasone propionate 110 mcg/actuation (Flovent HFA) 1 puff PO BID 30 days gabapentin 200 mg (2 x 100 mg) PO BEDTIME 90 days glucose (Dex4 Glucose) 16 grams (4 x 4 gram) PO Q15M PRN insulin degludec (Tresiba FlexTouch U-200 insulin) 50 units subcut DAILY insulin glargine U-300 conc 50 units subcut BEDTIME insulin lispro (Humalog KwikPen (U-100) Insulin) 4 units (0.04 mL) subcut TID lancets test twice per day losartan 100 mg PO DAILY 90 days metformin 500 mg PO DAILY metoprolol succinate ER 100 mg PO DAILY nebulizers As directed pen needle, diabetic (1st Tier Unifine Pentips) Use 1 pen needle once a da semaglutide (Ozempic) 0.5 mg (0.736 mL) subcut QWEEK Ventolin HFA 90 mcg/actuation (albuterol sulfate) 2 puffs inhalation Q6H PRN 30 days NS HPI Comments Details: Kinga Moffett is a 74 man with a history of longstanding diabetes mellitus. He has history of CKD with a baseline creatinine between 1.3 and 1.6 mg/dL. He has had few episodes of mild JOHN s He has been referred for evaluation of CKD. 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 Son No problems noted. Son No problems noted. Son No problems noted. Social History Household Members: Spouse Housing: Apartment Are you a primary patient care director to a significant other at home: No Do you presently have visiting nurse or other home services: Yes Alcohol intake: former Patient Tobacco Use Status: Former Tobacco user Tobacco use type: Cigarette e-Cigarette/Vaping Use: Never Used Second Hand Smoke Exposure: No Advance Directives Date on File: 07/30/20 service: No Current occupational status: retired Cognitive needs: No Hearing needs: No Vision needs: Yes Physical Exam Vital Signs: BMI result Body Mass Index 26.6 Comfortable Neck supple no JVD. Lungs entry equal no rales. Heart S1-S2 heard no gallop or rub. Abdomen soft nontender. Neuro alert awake oriented. No asterixis. Extremities no edema. Results Reviewed Nephrology Results: Sodium 138 mmol/L (135-145) 09/17/24 Potassium 4.3 mmol/L (3.3-5.1) 09/17/24 Chloride 104 mmol/L (96-108) 09/17/24 Carbon Dioxide 26 mmol/L (22-29) 09/17/24 BUN 19 mg/dL (9-16) H 09/17/24 Creatinine 1.58 mg/dL (0.5-1.4) H 09/17/24 Calcium 9.7 mg/dL (8.4-10.2) 09/17/24 Assessment & Plan Assessment & Plan (1) CKD (chronic kidney disease) stage 3, GFR 30-59 ml/min: Code(s): N18.30 - Chronic kidney disease, stage 3 unspecified Category: Medical Qualifiers: Chronic kidney disease stage 3 subtype: stage 3a (GFR 45-59) Qualified Code(s): N18.31 - Chronic kidney disease, stage 3a Plan [place]air and CKD 3 in a setting of longstanding hypertension diabetes mellitus. He is minimal proteinuria. Urine microalbumin creatinine ratio was 71. Overall renal function stable. Goal is to slow the portion disease. Agree with NATACHA inhibition along with SGLT2 inhibitors to slow the progression of renal disease. Blood pressure be maintained less than 130/80. Currently blood pressure is acceptable. We discussed importance of tight control of blood sugar and to maintain A1c less than 7%. Encouraged him to increase physical activities Continue with low-sodium diet. Intact PTH is 131 He has mild secondary hyperparathyroidism. Serum calcium normal We will monitor for now. Orders: Orders Parathyroid Hormone Intact 5 Months N18.31 - Chronic kidney disease, stage 3a Basic Metabolic Panel 5 Months N18.31 - Chronic kidney disease, stage 3a Coding Level of Care Code Est Pt Level 4 (67905) Diagnoses Stage 3a chronic kidney disease N18.31 Chronic kidney disease stage 3 subtype: stage 3a (GFR 45-59)
== END 2024-09-24 09:59 | disposition home or self-care (01) ==
PROVIDERS: PCP Internal Medicine; Visit Provider Internal Medicine Hypertension Specialist
DX: N18.31 Chronic kidney disease, stage 3a (principal)
CPT/HCPCS: 99214

== ENCOUNTER → 2024-09-24 09:25 | Outpatient (BNVA) | payer OTHER, SELFPAY | PROVIDERS: PCP Internal Medicine; Visit Provider Internal Medicine Hypertension Specialist | DX: E11.22 Type 2 diabetes mellitus with diabetic chronic kidney disease (principal); N18.31 Chronic kidney disease, stage 3a | CPT/HCPCS: 99212 ==

== ENCOUNTER 2024-11-16 06:56 | Outpatient (REF) | payer OTHER, SELFPAY ==
[2024-11-16 07:34] LABS: Appearance Urine Clear; Color Urine Yellow; Glucose Urine UA >=1000 mg/dL (Negative); Leukocyte Esterase Urine Negative (Negative); Nitrite Urine Negative (Negative); PH 5.5 (5.0-9.0); Specific Gravity - Urine >= 1.030 (1.005-1.025); UMIC TRIGGER UA YES; Urine Blood Negative (Negative); Urine Ketones Negative (Negative); Urine Protein Trace mg/dL (Neg-Trace)
[2024-11-16 07:40] LABS: Bacteria Urine None Seen (None Seen); Hyaline Casts Urine 0-2 /LPF (0-2); RBC Urine 0-2 /HPF (0-2); Squamous Epithelial Cell Urine 0-2 /HPF (0-2); WBC Urine 0-5 /HPF (0-5)
== END 2024-11-16 06:57 | disposition home or self-care (01) ==
LOC: HO.LAB 06:56
PROVIDERS: Absent Provider Internal Medicine; PCP Internal Medicine; Visit Provider Internal Medicine Hypertension Specialist
DX: N18.31 Chronic kidney disease, stage 3a (principal)
CPT/HCPCS: 81001

== ENCOUNTER 2024-11-19 10:40 | Outpatient (AMB) | payer OTHER, SELFPAY ==
[2024-11-19 10:42] VITALS: BP 110/62; PULSE 77; BMI 26.0
--- NOTE | 2024-11-19 10:42 | MHC.OFFVIS ---
Vital Signs 11/19/24 10:42 Height 5 ft 5 in Weight 156 lb 4.924 oz BMI 26.0 BP 110/62 Blood Pressure Location Rt brachial Position Sitting Pulse 77 Pulse Source Pulse Oximeter Intake Visit Reasons: DM-confirmed Intake Note: Patient present today for Type 2 Diabetes Mellitus. 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: Yes Geothermal Powerplant Mechanic Helper Language: Fleet Service Manager Services: Geothermal Powerplant Mechanic Helper Present Geothermal Powerplant Mechanic Helper Name: Micheline [id number] Information Interpreted: non-clinical & clinical Accompanied by: Self / Same As Patient Allergies gabapentin Allergy (Mild, Verified 11/19/24 10:50) Itching Medication List - Last Reconciled 11/19/24 by Vita Guido PA-C acetaminophen (Tylenol Extra Strength) 500 mg PO Q6H PRN albuterol sulfate 2.5 mg (3 mL) inhalation Q4-6H PRN amlodipine 10 mg PO DAILY atorvastatin 40 mg PO DAILY 90 days blood sugar diagnostic (Grid[employer] SoftwareTouch Verio test strips) test twice per day blood-glucose meter ([employer] SoftwareTouch Verio Flex Start kit) test twice per day blood-glucose meter,continuous (FreeStyle Jarrod 3 [place]) Use daily As directed to monitor blood glucose blood-glucose sensor (FreeStyle Jarrod 3 Sensor device) Apply every 14 days As directed to monitor blood glucose cholecalciferol (vitamin D3) 25 mcg PO DAILY 90 days empagliflozin (Jardiance) 25 mg PO DAILY 90 days fluticasone propionate 110 mcg/actuation (Flovent HFA) 1 puff PO BID 30 days gabapentin 200 mg (2 x 100 mg) PO BEDTIME 90 days glucose (Dex4 Glucose) 16 grams (4 x 4 gram) PO Q15M PRN insulin degludec (Tresiba FlexTouch U-200 insulin) 30 units subcut DAILY insulin lispro (Humalog KwikPen (U-100) Insulin) 4 units (0.04 mL) subcut TID lancets test twice per day losartan 100 mg PO DAILY 90 days metformin 500 mg PO DAILY metoprolol succinate ER 100 mg PO DAILY nebulizers As directed pen needle, diabetic (1st Tier Unifine Pentips) Use 1 pen needle once a da semaglutide (Ozempic) 0.5 mg (0.736 mL) subcut QWEEK Ventolin HFA 90 mcg/actuation (albuterol sulfate) 2 puffs inhalation Q6H PRN 30 days NS HPI HPI DM-confirmed: Details: Patient is a 74-year-old male with a significant past medical history of hypertension, hyperlipidemia, chronic kidney disease, secondary hyperparathyroidism, anemia of chronic disease and diabetes presenting today for a follow-up regarding diabetes. Endo: Last A1c 8.2 down from 9.8. Current regimen: Jardiance 25 mg daily, metformin 500 mg daily, 20-30 units of Tresiba nightly, Humalog 4 units 3 times a day and ozempic 0.5 mg weekly. No nausea or vomiting. He has noticed some appetite suppresion with the ozempic. He has noticed that his blood sugars have been much better. CGM-usage 86%, average glucose 164, GMI 7.2%. hyperglycemic 35%, in range 65%. No hypoglycemic events. -most hyperglycemic events with meals -He has not had any lows- Followed recently for diabetic Education and found this very helpful. He has uncoming follow up. When he was 1st diagnosed with diabetes he was treated with metformin but could not tolerate higher doses. Nephro: He is following closely with Nephrology given his kidney disease and intermittent AKIs. CV: Blood pressure today in the office is 110/62. He is currently on metoprolol 100 mg, losartan 100 mg. Cholesterol is controlled with atorvastatin 40 mg. 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 Son No problems noted. Son No problems noted. Son No problems noted. Social History Household Members: Spouse Housing: Apartment Are you a primary career specialist to a significant other at home: No Do you presently have visiting nurse or other home services: Yes Alcohol intake: former Patient Tobacco Use Status: Former Tobacco user Tobacco use type: Cigarette e-Cigarette/Vaping Use: Never Used Second Hand Smoke Exposure: No Advance Directives Date on File: 07/30/20 service: No Current occupational status: retired Cognitive needs: No Hearing needs: No Vision needs: Yes Physical Exam Vital Signs: Last Vital Signs Pulse 77 11/19/24 10:42 BP 110/62 11/19/24 10:42 BMI result Body Mass Index 26.0 Const Orientation/consciousness: patient oriented x3 Neck Neck: Yes no lymphadenopathy Thyroid: Thyroid normal Carotids: no bruits Resp Auscultation: clear to auscultation bilaterally Cardio Rate: regular rate Rhythm: regular rhythm Heart sounds: S1 normal heart sound present and S2 normal heart sound present Peripheral pulses: dorsalis pedis present Neuro General: patient oriented x3, gait normal and no focal motor deficits Extrem Other: Monofilament sensation intact bilaterally. Vibratory sensation intact bilaterally. Skin intact. General: Yes normal to inspection Office Procedures Glucose Monitoring Details Details: See HPI 15824 - Glucose monitoring, continuous-physician I&R Procedure code (CPT) selection complete Results AMB Hemoglobin A1c AMB Hemoglobin A1c 8.2 % Last Edit by LAZARO Acevedo on 11/19/24 11:09 Results Reviewed Results Reviewed: Laboratory Last Values Glucose (Clinic) 220 mg/dL (60-115) H 11/19/24 10:53 Laboratory Tests 08/09/24 09/17/24 06:20 06:41 Creatinine 1.58 H Estimated GFR 43 Fasting Glucose 131 H AST 19 ALT 18 Triglycerides 113 Cholesterol 130 LDL Cholesterol, Calc 68 HDL Cholesterol 40 L Urine Creatinine 84.11 Urine Microalbumin 29.0 Microalb/Creat Ratio 34.4 H Assessment & Plan Assessment & Plan (1) Uncontrolled type 2 diabetes mellitus with hyperglycemia, with long-term current use of insulin: Code(s): E11.65 - Type 2 diabetes mellitus with hyperglycemia; Z79.4 - detention (current) use of insulin Category: Medical Plan: increase humalog to 6 units TID with meals continue tresiba 30 units continue ozempic 0.5 mg weekly- will monitor weights at home and will recheck in a few months as he does have some appetite suppression with ozempic (more than desired) (2) CKD (chronic kidney disease) stage 3, GFR 30-59 ml/min: Code(s): N18.30 - Chronic kidney disease, stage 3 unspecified Category: Medical Qualifiers: Chronic kidney disease stage 3 subtype: stage 3a (GFR 45-59) Qualified Code(s): N18.31 - Chronic kidney disease, stage 3a Plan: Stable (3) Essential hypertension: Code(s): I10 - Essential (primary) hypertension Category: Medical Plan: WNL. Continue current regimen (4) Pure hypercholesterolemia: Code(s): E78.00 - Pure hypercholesterolemia, unspecified Category: Medical Plan: LDL at goal. Continue current regimen. Orders: Orders AMB Hemoglobin A1c Today E11.65 - Type 2 diabetes mellitus with hyperglycemia, Z13.9 - Encounter for screening, unspecified, Z79.4 - detention (current) use of insulin Medications: Changed From insulin lispro (Humalog KwikPen (U-100) Insulin) with breakfast, lunch and supper 4 units (0.04 mL) subcut TID 15 mL 2RF To insulin lispro (Humalog KwikPen (U-100) Insulin) with breakfast, lunch and supper 6 units (0.06 mL) subcut TID 15 mL 2RF Coding Level of Care Code Est Pt Level 4 (61790) Diagnoses Uncontrolled type 2 diabetes mellitus with hyperglycemia, with long-term current use of insulin E11.65; Z79.4 Stage 3a chronic kidney disease N18.31 Chronic kidney disease stage 3 subtype: stage 3a (GFR 45-59) Essential hypertension I10 Pure hypercholesterolemia E78.00 CPT Codes Details - CPT: 79359 - Glucose monitoring, continuous-physician I&R ([id number])
[2024-11-19 10:58] LABS: Glucose, Whole Blood 220 mg/dL (60-115)
--- OUTSIDE RECORDS SUMMARY | 2024-11-19 15:25 | XMS_ITS | Clinical Summary ---
Author Organization [facility] Address [address] [place] [address] Phone Care Team Providers Care Sex Worker Or Escort Name Role Phone Rose Mary Jones MD Primary Care Provider [phone] Allergies No known active allergies Medications albuterol HFA (PROVENTIL HFA;VENTOLIN HFA) 108 (90 Base) MCG/ACT inhaler 1 puff by Other route every 4 (four) hours Active atorvastatin (LIPITOR) 40 MG tablet Take 1 tablet by mouth 1 (one) time each day Active fluticasone (Flovent Diskus) 100 MCG/BLIST diskus inhaler 1 puff by Other route 2 (two) times a day Active glipiZIDE (GLUCOTROL) 10 MG tablet Take 1 tablet by mouth 2 (two) times a day Active losartan (COZAAR) 25 MG tablet Take 1 tablet by mouth 1 (one) time each day Active Insulin Glargine, 1 Unit Dial, 300 UNIT/ML solution pen-injector Inject 45 Units under the skin 2 (two) times a day Active metFORMIN (GLUCOPHAGE) 500 MG tablet Take 1 tablet by mouth 2 (two) times a day Active Metoprolol Succinate 100 MG capsule extended-releas e 24 hour sprinkle Take 100 mg by mouth 1 (one) time each day Active gabapentin (NEURONTIN) 100 MG capsule TAKE 1 CAPSULE BY MOUTH AT BEDTIME 90 DAYS 2 Active fluticasone (FLONASE) 50 MCG/ACT nasal spray Administer 50 sprays into each nostril 2 (two) times a day if needed 2 Active loratadine (CLARITIN) 10 MG tablet Take 10 mg by mouth if needed 2 Active Active Problems Problem Noted Date Diagnosed Date Chronic kidney disease stage 3 03/06/2021 Essential hypertension 03/06/2021 Proteinuria 03/06/2021 Family History Medical History Relation Comments Diabetes Brother Diabetes Father Diabetes Mother Diabetes Sister Relation Status Comments Brother Father Mother Sister Social History Tobacco Use Types Packs/Day Years Used Date Smoking Tobacco: Former Smokeless Tobacco: Former Alcohol Use Standard Drinks/Week Comments Never 0 (1 standard drink = 0.6 oz pur e alcohol) Sex and Gender Information Value Date Recorded Sex Assigned at Not on file Legal Sex Male 4:58 PM EST Gender Identity Not on file Sexual Orientation Not on file Last Filed Vital Signs Vital Sign Reading Time Taken Comments Blood Pressure 128/62 05/12/2022 12:08 PM EDT Pulse 67 05/12/2022 12:08 PM EDT Temperature - - Respiratory Rate - - Oxygen Saturation 96% 05/12/2022 12:08 PM EDT Inhaled Oxygen Concentration - - Weight 71.8 kg (158 lb 6.4 oz) 05/12/2022 12:08 PM EDT Height - - Body Mass Index - - Plan of Treatment Health Maintenance Due Date Last Done Comments Pneumococcal Vaccine: 65+ Ye ars (1 of 2 - PCV) 1956 Colorectal Cancer Screening: Annual FOBT 1999 Colorectal Cancer Screening: Colonoscopy 1999 Colorectal Cancer Screening: Sigmoidoscopy 1999 Influenza Vaccine (#1) 2024 Hepatitis B Vaccine Aged Out No longe r eligible based on patient's age to complete this topic Insurance [facility] DUAL COMPLETE ([id number]) [facility] DUAL COMPLETE ([id number]) Care Teams Sex Worker Or Escort Relationship Specialty Start Date End Date Rose Mary Jones MD [address] HIRAMTHE[place] GRIMALDO PCP - General 11/03/20
== END 2024-11-19 11:22 | disposition home or self-care (01) ==
PROVIDERS: PCP Internal Medicine; Visit Provider Physician Assistant
DX: E11.65 Type 2 diabetes mellitus with hyperglycemia (principal); Z79.4 Long term (current) use of insulin; N18.31 Chronic kidney disease, stage 3a; I10 Essential (primary) hypertension; E78.00 Pure hypercholesterolemia, unspecified; Z13.9 Encounter for screening, unspecified

== ENCOUNTER → 2024-11-19 10:40 | Outpatient (BNVA) | payer OTHER, SELFPAY | PROVIDERS: PCP Internal Medicine; Visit Provider Physician Assistant | DX: E11.65 Type 2 diabetes mellitus with hyperglycemia (principal); I12.9 Hypertensive chronic kidney disease with stage 1 through stage 4 chronic kidney disease, or unspecified chronic kidney disease; E11.22 Type 2 diabetes mellitus with diabetic chronic kidney disease; N18.31 Chronic kidney disease, stage 3a; E78.00 Pure hypercholesterolemia, unspecified; Z79.4 Long term (current) use of insulin | CPT/HCPCS: 82947; 83036; 99212 ==

== ENCOUNTER 2025-01-01 07:50 | Outpatient (AMB) | payer OTHER, SELFPAY ==
--- NOTE | 2025-01-01 07:53 | MHC.AMDMED ---
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 Required: Yes Forest Law And Policy Professor Language: Bond Manager Name: Niya [id number] Accompanied by: Self / Same As Patient Allergies gabapentin Allergy (Mild, Verified 11/19/24 10:50) Itching HPI Comprehensive Diabetes Asmnt Most Recent Diabetes Results: Hemoglobin A1c 9.0 % 11/02/19 Microalb/Creat Ratio 34.4 ug/mg cr (<30) H 08/09/24 Cholesterol 130 mg/dL (<200) 09/17/24 HDL Cholesterol 40 mg/dL (>40) L 09/17/24 Triglycerides 113 mg/dL (<150) 09/17/24 Creatinine 1.58 mg/dL (0.5-1.4) H 09/17/24 Blood Urea Nitrogen 19 mg/dL (9-16) H 09/17/24 Sodium 138 mmol/L (135-145) 09/17/24 Potassium 4.3 mmol/L (3.3-5.1) 09/17/24 Chloride 104 mmol/L (96-108) 09/17/24 Carbon Dioxide 26 mmol/L (22-29) 09/17/24 Calcium 9.7 mg/dL (8.4-10.2) 09/17/24 AST 19 U/L (5-37) 09/17/24 ALT 18 U/L (0-40) 09/17/24 Total Protein 6.6 g/dL (6.5-8.0) 09/17/24 Albumin 4.0 g/dL (3.5-5.0) 09/17/24 [facility] Medical History (Updated 11/19/24 @ 11:13 by Vita Guido PA-C) Myocardial infarction Arthritis Pulmonary nodule Cavitary pneumonia MRSA bacteremia Hypovitaminosis D Former smoker Hyperparathyroidism Annual physical exam CAD (coronary artery disease) Former smoker Obese Microalbuminuria CKD (chronic kidney disease) stage 3, GFR 30-59 ml/min 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 Son No problems noted. Son No problems noted. Son No problems noted. Social History Household Members: Spouse Housing: Apartment Are you a primary resident care manager to a significant other at home: No Do you presently have visiting nurse or other home services: Yes Alcohol intake: former Patient Tobacco Use Status: Former Tobacco user Tobacco use type: Cigarette e-Cigarette/Vaping Use: Never Used Second Hand Smoke Exposure: No Advance Directives Date on File: 07/30/20 service: No Current occupational status: retired Cognitive needs: No Hearing needs: No Vision needs: Yes Assessment & Plan Assessment & Plan (1) Uncontrolled type 2 diabetes mellitus with hyperglycemia, with long-term current use of insulin: Code(s): E11.65 - Type 2 diabetes mellitus with hyperglycemia; Z79.4 - ad terminal makeup operator (current) use of insulin Plan: Personal Continuous Glucose Monitor: Patients CGM information reviewed, Pt uses CarFin with reader Sensor data: Hypoglycemia: ? 4% Hyperglycemia:? 18% Time in Range:? 74% Average glucose for the last 2 weeks?136 mg/dL Patient is experiencing overnight and early education teacher hypoglycemia Patient is currently taking Tresiba 30 units daily, reviewed with patient action of Tresiba Instructed patient to reduce Tresiba to 24 units daily, after 3 days if patient is still experiencing hypoglycemia overnight or in the a.m. reduce to 22 units Instructed patient to carry hypoglycemic treatment. Message sent to physician's librarian assistant to resend prescription for glucose tabs Reviewed how to interpret trend arrows Reminded patient that to check finger sticks if symptoms do not match sensor reading. Discussed lag time between finger stick and sensor data.? Patient able to insert sensor independently at home without issue. DIABETES PROBLEMS HOMECARE INSTRUCTIONS Hypo instructions ? When first signs of insulin reaction occur, immediately drink orange juice or cola, or suck on a sugar cube, but only if the person is conscious. Signs and symptoms of low blood sugar (happen quickly) Each person's reaction to low blood sugar is different. Learn your own signs and symptoms of when your blood sugar is low. Taking time to write these symptoms down may help you learn your own symptoms of when your blood sugar is low. From milder, more common indicators to most severe, signs and symptoms of low blood sugar include: Feeling shaky Being nervous or anxious Sweating, chills and clamminess Irritability or impatience Confusion Fast heartbeat Feeling lightheaded or dizzy Hunger Nausea Color draining from the skin (pallor) Feeling Sleepy Feeling weak or having no energy Blurred/impaired vision Tingling or numbness in the lips, tongue, or cheeks Headaches Coordination problems, clumsiness Hypoglycemia or blood glucose under 75 use the rule of 15's: If you have your blood glucose meter test your blood glucose, if you do not have your meter still follow below instruction: Keep quick-sugar foods with you at all times.? Take 15 grams of fast acting carbohydrates. Examples are 4 ounces of fruit juice or regular soda pop, 8 ounces fat-free milk, 1 tablespoon of table sugar, honey or corn syrup, jam, one miniature box of raisins, 7-8 gumdrops or Life Savers candy, 4 glucose tablets, and glucose gel.? Retest blood glucose in 15 minutes, if blood glucose is still under 80, repeat rule of 15's. If blood glucose is under 50, take 30 grams of fast acting carbohydrates If you are having hypoglycemia, or insulin reaction, more that a few times a week, call MD or in service educator F/U BG check Portions of this note were created using voice recognition software, please excuse any words or phrases that may have been misinterpreted. Patient Instructions: Tresiba de 30 unidades a 26 unidades Si la glucosa baja contin?a, reducir la dosis de Tresiba a 22 unidades Realizar un seguimiento con heide enfermera de educaci?n sobre diabetes en 1 mes Coding Level of Care Code Est Pt Level 1 (99008) Diagnoses Uncontrolled type 2 diabetes mellitus with hyperglycemia, with long-term current use of insulin E11.65; Z79.4
--- OUTSIDE RECORDS SUMMARY | 2025-01-01 07:53 | XMS_ITS | Clinical Summary ---
Author Organization [facility] Address [address] [place] [address] Phone Care Team Providers Care Smocker Name Role Phone Rose Mary Jones MD Primary Care Provider [phone] Allergies No known active allergies Medications albuterol [...] patient's age to complete this topic Insurance [facility] DUAL COMPLETE ([id number]) [facility] DUAL COMPLETE ([id number]) Care Teams Smocker Relationship Specialty Start Date End Date Rose Mary Jones MD [address] HIRAMTHELMA GRIMALDO PCP - General 11/03/20
== END 2025-01-01 08:19 | disposition home or self-care (01) ==
LOC: HO.ENCR 07:50
PROVIDERS: PCP Internal Medicine; Visit Provider Registered Nurse Diabetes Educator
DX: E11.65 Type 2 diabetes mellitus with hyperglycemia (principal); Z79.4 Long term (current) use of insulin

== ENCOUNTER → 2025-01-01 07:50 | Outpatient (BNVA) | payer OTHER, SELFPAY | PROVIDERS: PCP Internal Medicine; Visit Provider Registered Nurse Diabetes Educator | DX: E11.65 Type 2 diabetes mellitus with hyperglycemia (principal); Z79.4 Long term (current) use of insulin | CPT/HCPCS: 99211 ==

== ENCOUNTER 2025-01-07 06:40 | Outpatient (REF) | payer OTHER, SELFPAY ==
[2025-01-07 07:29] LABS: Appearance Urine Clear; Color Urine Yellow; Glucose Urine UA >=1000 mg/dL (Negative); Leukocyte Esterase Urine Negative (Negative); Nitrite Urine Negative (Negative); UMIC TRIGGER UACC YES; Urine Blood Negative (Negative); Urine Ketones Negative (Negative); Urine Protein Negative (Neg-Trace)
[2025-01-07 07:34] LABS: Bacteria Urine None Seen (None Seen); Hyaline Casts Urine 0-2 /LPF (0-2); RBC Urine 0-2 /HPF (0-2); Squamous Epithelial Cell Urine 0-2 /HPF (0-2); WBC Urine 0-5 /HPF (0-5)
[2025-01-07 07:35] LABS: Anion Gap 7 (12-20); Blood Urea Nitrogen 18 mg/dL (9-16); Calcium 9.1 mg/dL (8.4-10.2); Carbon Dioxide 26 mmol/L (22-29); Chloride 111 mmol/L (96-108); Estimated Glomerular Filt Rate > 60; Glucose Random 83 mg/dL (60-115); Potassium 4.3 mmol/L (3.3-5.1); Sodium 140 mmol/L (135-145)
[2025-01-07 07:44] LABS: Parathyroid Hormone Intact 110.8 pg/mL (8.7-77.1)
== END 2025-01-07 06:41 | disposition home or self-care (01) ==
LOC: HO.LAB 06:40
PROVIDERS: Internal Medicine Gastroenterology; Internal Medicine Hypertension Specialist; PCP Internal Medicine; Visit Provider Internal Medicine
DX: N18.31 Chronic kidney disease, stage 3a (principal); D63.1 Anemia in chronic kidney disease; R30.0 Dysuria
CPT/HCPCS: 36415; 80048; 81001; 83970

== ENCOUNTER 2025-01-21 07:40 | Outpatient (AMB) | payer OTHER, SELFPAY ==
--- NOTE | 2025-01-21 07:43 | MHC.PC.OV ---
Vital Signs 01/21/25 07:49 Height 5 ft 5 in Weight 157 lb BMI 26.1 BP 120/78 Blood Pressure Location Lt brachial Position Sitting Intake Visit Reasons: dm Intake Note: Patient here for a follow up DM Sanitary Engineering Teacher Required: Yes Sanitary Engineering Teacher Language: Oil Drilling Engineer Name: Rose Mary Mcneill MD Information Interpreted: non-clinical & clinical Accompanied by: Self / Same As Patient Allergies gabapentin Allergy (Mild, Verified 01/21/25 08:05) Itching Medication List - Last Reconciled 01/21/25 by Rose Mary Mcneill MD acetaminophen (Tylenol Extra Strength) 500 mg PO Q6H PRN albuterol sulfate 2.5 mg (3 mL) inhalation Q4-6H PRN amlodipine 10 mg PO DAILY atorvastatin 40 mg PO DAILY 90 days blood sugar diagnostic (HealthPocketuch Verio test strips) test twice per day blood-glucose meter ([employer] Verio Flex Start kit) test twice per day blood-glucose meter,continuous (FreeStyle Jarrod 3 [place]) Use daily As directed to monitor blood glucose blood-glucose sensor (FreeStyle Jarrod 3 Sensor device) Apply every 14 days As directed to monitor blood glucose cholecalciferol (vitamin D3) 25 mcg PO DAILY 90 days empagliflozin (Jardiance) 25 mg PO DAILY 90 days fluticasone propionate 110 mcg/actuation (Flovent HFA) 1 puff PO BID 30 days gabapentin 200 mg (2 x 100 mg) PO BEDTIME 90 days glucose (Dex4 Glucose) 16 grams (4 x 4 gram) PO Q15M PRN insulin degludec (Tresiba FlexTouch U-200 insulin) 30 units subcut DAILY insulin lispro (Humalog KwikPen (U-100) Insulin) 6 units (0.06 mL) subcut TID lancets test twice per day losartan 100 mg PO DAILY 90 days metformin 500 mg PO BID 90 days metoprolol succinate ER 100 mg PO DAILY nebulizers As directed pen needle, diabetic (1st Tier Unifine Pentips) Use 1 pen needle once a da semaglutide (Ozempic) 0.5 mg (0.736 mL) subcut QWEEK Ventolin HFA 90 mcg/actuation (albuterol sulfate) 2 puffs inhalation Q6H PRN 30 days NS Tobacco use date assessed: 01/21/25 Fall risk assessment: No Falls in past year Last assessed Fall Risk: 01/21/25 Dental Screening Dental Screen Date: 01/21/25 Did you have a dental visit in the last 12 months?: Yes Did you have a dental problem in the last 6 months where you did not have access to dental care?: No Was dental information given to patient?: Patient has dentist HPI HPI Comments History of Present Illness Details The patient is a 74-year-old male presenting with a follow-up for chronic conditions including Type 2 Diabetes Mellitus and the need for pneumonia vaccination. He reports consistent home blood glucose levels between 80-120 mg/dL, though his most recent Hemoglobin A1c measured 8.2% in October, above the target of 7%. His hyperlipidemia is effectively managed, achieving an LDL level of 68 mg/dL. Chronic Kidney Disease is present but currently stable, with recent renal function improvement. Hyperparathyroidism is noted, with a history of vitamin D deficiency. The patient is allergic to Gabapentin, taking several medications for his chronic conditions. He is a former smoker, having ceased over 30 years ago, and has a history of anemia, possibly related to his renal condition. He reports normal urinary and bowel functions, denies chest pain or dyspnea, and has had a negative abdominal aortic aneurysm screening in 2020. 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 Son No problems noted. Son No problems noted. Son No problems noted. Social History Household Members: Spouse Housing: Apartment Are you a primary district manager primary care sales to a significant other at home: No Do you presently have visiting nurse or other home services: Yes Alcohol intake: former Patient Tobacco Use Status: Former Tobacco user Tobacco use type: Cigarette e-Cigarette/Vaping Use: Never Used Second Hand Smoke Exposure: No Advance Directives Date on File: 07/30/20 service: No Current occupational status: retired Cognitive needs: No Hearing needs: No Vision needs: Yes Questionnaire PHQ-9 Over the last 2 weeks, how often have you been bothered by any of the following problems? 1. Little interest or pleasure in doing things: not at all 2. Feeling down, depressed, or hopeless: not at all 3. Trouble falling or staying asleep, or sleeping too much: not at all 4. Feeling tired or having little energy: not at all 5. Poor appetite or overeating: not at all 6. Feeling bad about yourself - or that you are a failure or have let yourself or your family down: not at all 7. Trouble concentrating on things, such as reading the newspaper or watching television: not at all 8. Moving or speaking so slowly that other people could have noticed. Or the opposite - being so fidgety or restless that you have been moving around a lot more than usual: not at all 9. Thoughts that you would be better off or of hurting yourself in some way: not at all Total score: 0 Source: Developed by Drs. Jose Mandujano, Yamel Weaver, Adrian Dee and colleagues, with an educational barry from [employer]. Thrive Questionnaire Date Thrive assessed: 01/21/25 I am a: Patient What is your living situation today?: I have a steady place to live Within the past 12 months, did the food you bought not last and you didn't have the money to get more?: Never true Within the past 12 months, did you worry whether your food would run out before you got money to buy more?: Never true Do you have trouble paying for medicines?: No Do you have trouble getting transportation to medical appointments?: No Do you have trouble paying your heating and electricity bill?: No Do you have trouble taking care of your child, family member or friend?: No Do you have trouble with day-to-day activities such as bathing, preparing meals, shopping, managing finances, etc.?: No Are you currently unemployed and looking for a job?: No Are you interested in more education?: No Please select the resources that you would like help with: None Currently or been in a relationship where the following occur: No concerns reported THRIVE Score: 0 AUDIT C Alcohol Use Questionnaire (AUDIT-C) 1. How often do you have a drink containing alcohol?: Never Total Score: 0 DAX-7 AMB Questionnaire DAX-7 Date DAX - 7 assessed: 01/21/25 Feeling nervous, anxious, or on edge: 0 = Not at all Not being able to stop or control worryin = Not at all Worrying too much about different things: 0 = Not at all Trouble relaxin = Not at all Being so restless that it is hard to sit still: 0 = Not at all Becoming easily annoyed or irritable: 0 = Not at all Feeling afraid as if something awful might happen: 0 = Not at all Total DAX-7 score (0-4 normal; 5-9 mild; 10-14 moderate; 15-21 severe): 0 Source: Developed by Drs. Jose Mandujano, Yamel Weaver, Adrian Dee and colleagues, with an educational barry from [employer]. Review of Systems Const All systems reviewed & are unremarkable except as noted in HPI and below Card Denies chest pain at rest, Denies chest pain with activity, Denies edema, Denies irregular heart rhythm, Denies claudication, Denies dyspnea, Denies dyspnea on exertion, Denies orthopnea, Denies paroxysmal nocturnal dyspnea and Denies slow heart rate Resp Denies cough, Denies dyspnea and Denies dyspnea on exertion Physical exam (Primary Care) Vital Signs: Last Vital Signs BP 120/78 01/21/25 07:49 BMI result Body Mass Index 26.1 Tobacco/Smoking Status: Tobacco use Status Tobacco use date assessed 01/21/25 01/21/25 07:52 Patient Tobacco Use Status Former Tobacco user 01/21/25 07:45 Tobacco use type Cigarette 01/21/25 07:45 e-Cigarette/Vaping Use Never Used 01/21/25 07:45 PHQ-9: PHQ-9 Score PHQ-9: Total score 0 01/21/25 08:17 Thrive Assessment: Date of Thrive Assessment Date Thrive assessed 01/21/25 01/21/25 07:45 Currently or been in a relationship where the following occur: No concerns reported Resp Effort & Inspection: normal respiratory effort Auscultation: clear to auscultation bilaterally Cardio Jugular venous distension: no JVD Rate: regular rate Rhythm: regular rhythm Heart sounds: S1 normal heart sound present and S2 normal heart sound present Extrem General: Yes full ROM Immunizations pneumoc 20-barrett conj-dip cr(PF) 0.5 mL IM syringe Performing Provider: Rose Mary Mcneill MD Performing Location: [facility] Administered by: LAZARO Fletcher on 01/21/25 08:17 Dose Route Admin Location Dispensed Lot Number Expiration Date NDC Data Entry Supervisor 0.5 mL IM Right Deltoid 0.5 mL [id number] 11/24/25 7240-7001-98 myhub VIS Given Date VIS Provided VIS Publication Date 01/21/25 Single Vaccine 21 Eligibility Eligibility Date Funding Source Not [facility] Eligible 01/21/25 Private Coding Level of Care Code Est Pt Level 4 (06027) Complex EM visit Add On G2211 Diagnoses Uncontrolled type 2 diabetes mellitus with hyperglycemia, with long-term current use of insulin E11.65; Z79.4 Essential hypertension I10 Hyperparathyroidism E21.3 Pure hypercholesterolemia E78.00 Chronic disease anemia D63.8 Time Spent (min) 21 Assessment & Plan Assessment & Plan (1) Uncontrolled type 2 diabetes mellitus with hyperglycemia, with long-term current use of insulin: Code(s): E11.65 - Type 2 diabetes mellitus with hyperglycemia; Z79.4 - 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 Code(s): E21.3 - Hyperparathyroidism, unspecified Category: Medical (4) Pure hypercholesterolemia: Code(s): E78.00 - Pure hypercholesterolemia, unspecified Category: Medical (5) Chronic disease anemia: Code(s): D63.8 - Anemia in other chronic diseases classified elsewhere Category: Medical Plan The management plan includes continued monitoring of Type 2 Diabetes Mellitus through medication and aiming for an A1c target of 7%. Hyperlipidemia management remains stable under current statin therapy, with ongoing renal monitoring due to Chronic Kidney Disease. Hyperparathyroidism-related vitamin D levels will be evaluated, and anemia monitored without immediate intervention. A pneumonia vaccine will be administered today. No changes to the medication regimen are needed. Follow-up labs are planned in four months. Patient was informed and verbally consented to the use of an ambient scribe for clinic note documentation during this visit. I discussed with the patient the importance of managing his Type 2 Diabetes Mellitus and the goal of lowering his Hemoglobin A1c to 7%. We reviewed his well-managed hyperlipidemia and cholesterol levels with Atorvastatin. I informed him that his renal function has shown improvement, yet we will continue monitoring. We acknowledged his hyperparathyroidism and the role of vitamin D supplementation. I explained the rationale for administering the pneumonia vaccine during this visit. We discussed his medication regimen, reassuring no current modifications are necessary. Follow-up laboratory testing is planned for four months to evaluate ongoing management effectiveness. Orders: Orders IRON PROFILE 4 Months D64.9 - Anemia, unspecified Microalbumin, Random (w Creat) 4 Months R80.9 - Proteinuria, unspecified Comprehensive [place]. Panel Fast 4 Months E11.65 - Type 2 diabetes mellitus with hyperglycemia, Z79.4 - intermediate (current) use of insulin Pneumococcal 20 Immunization Today Z23 - Encounter for immunization Vitamin D 25-OH Total 4 Months E55.9 - Vitamin D deficiency, unspecified Complete Blood Count Auto Diff 4 Months D64.9 - Anemia, unspecified Vitamin B12 and Folate 4 Months E53.8 - Deficiency of other specified B group vitamins Lipid Panel 4 Months E78.5 - Hyperlipidemia, unspecified Patient Instructions: - Continue current medication regimen as prescribed. - Receive the pneumonia vaccination today. - Maintain home monitoring of blood glucose levels. - Follow up for laboratory evaluations in four months. - Maintain current management of chronic conditions. - Contact the office for any new symptoms or concerns.
[2025-01-21 07:49] VITALS: BP 120/78; BMI 26.1
== END 2025-01-21 08:14 | disposition home or self-care (01) ==
LOC: HO.HMCH 07:40
PROVIDERS: PCP Internal Medicine; Visit Provider Internal Medicine
DX: E11.65 Type 2 diabetes mellitus with hyperglycemia (principal); Z79.4 Long term (current) use of insulin; I10 Essential (primary) hypertension; E21.3 Hyperparathyroidism, unspecified; E78.00 Pure hypercholesterolemia, unspecified; D63.8 Anemia in other chronic diseases classified elsewhere; Z23 Encounter for immunization

== ENCOUNTER → 2025-01-21 07:40 | Outpatient (BNVA) | payer OTHER, SELFPAY | PROVIDERS: PCP Internal Medicine; Visit Provider Internal Medicine | DX: Z23 Encounter for immunization (principal); E11.65 Type 2 diabetes mellitus with hyperglycemia; E21.3 Hyperparathyroidism, unspecified; E78.00 Pure hypercholesterolemia, unspecified; D63.8 Anemia in other chronic diseases classified elsewhere; I10 Essential (primary) hypertension; Z79.4 Long term (current) use of insulin | CPT/HCPCS: 90471; 90677; 99212 ==

== ENCOUNTER 2025-01-31 08:32 | Outpatient (AMB) | payer OTHER, SELFPAY ==
--- OUTSIDE RECORDS SUMMARY | 2025-01-31 08:47 | XMS_ITS | Clinical Summary ---
Author Organization [facility] Address [address] [place] [place] [address] Phone Care Team Providers Care Glassware Selector Name Role Phone Rose Mary Jones MD Primary Care Provider [phone] Allergies No known active allergies Medications albuterol [...] Due Date Last Done Comments Pneumococcal Vaccine: 50+ Ye ars (1 of 2 - PCV) 1956 Colorectal Cancer Screening: Annual FOBT 1999 Colorectal Cancer Screening: Colonoscopy 1999 Colorectal Cancer Screening: Sigmoidoscopy 1999 Influenza Vaccine (Season Ended) 2025 Hepatitis B Vaccine Aged Out No longe r eligible based on patient's age to complete this topic Insurance [facility] ([id number]) [facility] ([id number]) Care Teams Glassware Selector Relationship Specialty Start Date End Date Rose Mary Jones MD [address] [place], [place] PCP - General 11/03/20
--- NOTE | 2025-01-31 09:10 | A.OFFVIS_ITS ---
Intake Intake Visit Reasons: DM Instrument Repair Technician Required: Yes Instrument Repair Technician Language: Compounding Assistant Name: Rose Mary [facility] Information Interpreted: non-clinical & clinical Accompanied by: Self / Same As Patient Allergies gabapentin Allergy (Mild, Verified 01/21/25 08:05) Itching HPI Comprehensive Diabetes Asmnt Most Recent Diabetes Results: Hemoglobin A1c 9.0 % 11/02/19 Microalb/Creat Ratio 34.4 ug/mg cr (<30) H 08/09/24 Cholesterol 130 mg/dL (<200) 09/17/24 HDL Cholesterol 40 mg/dL (>40) L 09/17/24 Triglycerides 113 mg/dL (<150) 09/17/24 Creatinine 1.17 mg/dL (0.5-1.4) 01/07/25 Blood Urea Nitrogen 18 mg/dL (9-16) H 01/07/25 Sodium 140 mmol/L (135-145) 01/07/25 Potassium 4.3 mmol/L (3.3-5.1) 01/07/25 Chloride 111 mmol/L (96-108) H 01/07/25 Carbon Dioxide 26 mmol/L (22-29) 01/07/25 Calcium 9.1 mg/dL (8.4-10.2) 01/07/25 AST 19 U/L (5-37) 09/17/24 ALT 18 U/L (0-40) 09/17/24 Total Protein 6.6 g/dL (6.5-8.0) 09/17/24 Albumin 4.0 g/dL (3.5-5.0) 09/17/24 [facility] Medical History Myocardial infarction Arthritis Pulmonary nodule Cavitary pneumonia MRSA bacteremia Hypovitaminosis D Former smoker Hyperparathyroidism Annual physical exam CAD (coronary artery disease) Former smoker Obese Microalbuminuria CKD (chronic kidney disease) stage 3, GFR 30-59 ml/min [facility] (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 Son No problems noted. Son No problems noted. Son No problems noted. Social History Household Members: Spouse Housing: Apartment Are you a primary care clinician to a significant other at home: No Do you presently have visiting nurse or other home services: Yes Alcohol intake: former Patient Tobacco Use Status: Former Tobacco user Tobacco use type: Cigarette e-Cigarette/Vaping Use: Never Used Second Hand Smoke Exposure: No Advance Directives Date on File: 07/30/20 service: No Current occupational status: retired Cognitive needs: No Hearing needs: No Vision needs: Yes Assessment & Plan Assessment & Plan (1) Uncontrolled type 2 diabetes mellitus with hyperglycemia, with long-term current use of insulin: Code(s): E11.65 - Type 2 diabetes mellitus with hyperglycemia; Z79.4 - ad terminal makeup 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 0% Hyperglycemia:? 47% Time in Range:? 53% Average glucose for the last 2 weeks?181 mg/dL Overnight hypoglycemia has resolved even though patient continues to use Tresiba 30 units daily Patient has postprandial excursion after breakfast, reports he is taking Humalog 6 units before each meal Recommended to patient he increase Humalog to 8 units before breakfast but keep Humalog 6 units at lunch and at supper Reviewed with patient how to treat hypoglycemia with rule of 15s Patient reports he has not received message from pharmacy regarding glucose tab prescription Prescription was written on 01/02/2025, recommended to patient he follow-up with pharmacy regarding prescription for glucose tabs Patient able to insert sensor independently at home without issue.? Patient will follow-up with tobacco educator in 6 weeks after next A1c Portions of this note were created using voice recognition software, please excuse any words or phrases that may have been misinterpreted. Patient Instructions: [place] 8 unidades de Humalog en el desayuno y mantenga 6 unidades de Humalog en el almuerzo y la irais. Si arias glucosa est? por debajo de 70, vuelva a valente 6 unidades de Humalog. Consulte con un enfermero de educaci?n diab?angus en 6 semanas. Coding Level of Care Code Est Pt Level 1 (66742) Diagnoses Uncontrolled type 2 diabetes mellitus with hyperglycemia, with long-term current use of insulin E11.65; Z79.4
== END 2025-01-31 09:15 | disposition home or self-care (01) ==
LOC: HO.ENCR 08:33
PROVIDERS: PCP Internal Medicine; Visit Provider Registered Nurse Diabetes Educator
DX: E11.65 Type 2 diabetes mellitus with hyperglycemia (principal); Z79.4 Long term (current) use of insulin

== ENCOUNTER → 2025-01-31 08:32 | Outpatient (BNVA) | payer OTHER, SELFPAY | PROVIDERS: PCP Internal Medicine; Visit Provider Registered Nurse Diabetes Educator | DX: E11.65 Type 2 diabetes mellitus with hyperglycemia (principal); Z79.4 Long term (current) use of insulin | CPT/HCPCS: 99211 ==

== ENCOUNTER 2025-02-18 09:43 | Outpatient (AMB) | payer OTHER, SELFPAY ==
[2025-02-18 09:45] VITALS: BP 112/64; PULSE 65; O2SAT 98; BMI 27.0
--- NOTE | 2025-02-18 09:45 | MHC.OFFVIS ---
Vital Signs 02/18/25 09:45 Height 5 ft 5 in Weight 162 lb 0.636 oz BMI 27.0 BP 112/64 Blood Pressure Location Rt brachial Position Sitting Pulse 65 Pulse Source Pulse Oximeter Pulse Oximetry (%) 98 Oxygen Delivery Method Room Air Intake Visit Reasons: DM Intake Note: Patient present today for Type 2 Diabetes Mellitus Last Diabetic eye exam: 08/2024 Last Podiatry Visit: Doesn't have one Random Glucose: 134 mg/dl HgA1C: 7.6% Director Quality Assurance Required: Yes Director Quality Assurance Language: Marketing Producer Services: Director Quality Assurance Present Director Quality Assurance Name: Karen Information Interpreted: non-clinical & clinical Accompanied by: Self / Same As Patient Allergies gabapentin Allergy (Mild, Verified 02/18/25 09:50) Itching Medication List - Last Reconciled 02/18/25 by Vita Guido PA-C acetaminophen (Tylenol Extra Strength) 500 mg PO Q6H PRN albuterol sulfate 2.5 mg (3 mL) inhalation Q4-6H PRN amlodipine 10 mg PO DAILY atorvastatin 40 mg PO DAILY 90 days blood sugar diagnostic (OneTouch Verio test strips) test twice per day blood-glucose meter (OneTouch Verio Flex Start kit) test twice per day blood-glucose sensor (FreeStyle Jarrod 3 Sensor device) Apply every 14 days As directed to monitor blood glucose blood-glucose,oil developer,cont (FreeStyle Jarrod 3 [place]) Use daily As directed to monitor blood glucose cholecalciferol (vitamin D3) 25 mcg PO DAILY 90 days empagliflozin (Jardiance) 25 mg PO DAILY 90 days fluticasone propionate 110 mcg/actuation (Flovent HFA) 1 puff PO BID 30 days gabapentin 200 mg (2 x 100 mg) PO BEDTIME 90 days glucose (Dex4 Glucose) 16 grams (4 x 4 gram) PO Q15M PRN insulin degludec (Tresiba FlexTouch U-200 insulin) 30 units subcut DAILY insulin lispro (Humalog KwikPen (U-100) Insulin) 6 units (0.06 mL) subcut TID lancets test twice per day losartan 100 mg PO DAILY 90 days metformin 500 mg PO BID 90 days metoprolol succinate ER 100 mg PO DAILY nebulizers As directed pen needle, diabetic (1st Tier Unifine Pentips) Use 1 pen needle once a da semaglutide (Ozempic) 1 mg (0.75 mL) subcut QWEEK Ventolin HFA 90 mcg/actuation (albuterol sulfate) 2 puffs inhalation Q6H PRN 30 days NS HPI HPI DM: Details: Patient is a 74-year-old male with a significant past medical history of CAD, hypertension, hyperlipidemia, chronic kidney disease, secondary hyperparathyroidism, anemia of chronic disease and diabetes presenting today for a follow-up regarding diabetes. 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 Current regimen: Jardiance 25 mg daily, metformin 500 mg daily, Tresiba 30 units nightly, Humalog 6 units 3 times a day and ozempic 0.5 mg weekly. No nausea or vomiting. He has noticed some appetite suppression with the ozempic. He has noticed that his blood sugars have been much better. Prior medications: Trulicity cause nausea, metformin at higher doses causes GI upset, trialed Lantus but wore off, Toujeo had similar effects of wearing off CGM-usage 92%, average glucose 164, GMI 7.2%. hyperglycemic 31%, in range 68%. 1% hypoglycemia. -he does report rare hypoglycemic events but states that this is mostly at night and related to lying on his sensor. He will recheck it and this sugars are normal. He is asymptomatic with this. -most hyperglycemic events with meals but have significantly improved. Followed for diabetic Education and found this very helpful. -he does complain today of bilateral lower leg pain. He states sometimes they get a little swollen and elevating legs are helpful. The pain has been going on for the last few weeks it has been worsening. He notices that if he stands and walks it does exacerbate the pain. He has not noticed any discoloration or significant swelling. The pain is mostly throughout the calves and anterior legs. There is no real pain in the feet with this. No decreased sensation. There was no trauma. No change in urination. No abdominal pain, nausea, vomiting, chest pain or shortness on breath. Nephro: He is following closely with Nephrology given his kidney disease and intermittent AKIs. CV: Blood pressure today in the office is 112/64. He is currently on metoprolol 100 mg, losartan 100 mg. Cholesterol is controlled with atorvastatin 40 mg. [facility] Medical History Myocardial infarction Arthritis Pulmonary nodule Cavitary pneumonia MRSA bacteremia Hypovitaminosis D Former smoker Hyperparathyroidism Annual physical exam CAD (coronary artery disease) Former smoker Obese Microalbuminuria CKD (chronic kidney disease) stage 3, GFR 30-59 ml/min intermediate (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 Son No problems noted. Son No problems noted. Son No problems noted. Social History Household Members: Spouse Housing: Apartment Are you a primary home care aide to a significant other at home: No Do you presently have visiting nurse or other home services: Yes Alcohol intake: former Patient Tobacco Use Status: Former Tobacco user Tobacco use type: Cigarette e-Cigarette/Vaping Use: Never Used Second Hand Smoke Exposure: No Advance Directives Date on File: 07/30/20 service: No Current occupational status: retired Cognitive needs: No Hearing needs: No Vision needs: Yes Physical Exam Vital Signs: Last Vital Signs Pulse 65 02/18/25 09:45 BP 112/64 02/18/25 09:45 Pulse Ox 98 02/18/25 09:45 Oxygen Delivery Method Room Air 02/18/25 09:45 BMI result Body Mass Index 27.0 Const Orientation/consciousness: patient oriented x3 Neck Neck: Yes no lymphadenopathy Thyroid: Thyroid normal Carotids: no bruits Resp Auscultation: clear to auscultation bilaterally Cardio Rate: regular rate Rhythm: regular rhythm Heart sounds: S1 normal heart sound present and S2 normal heart sound present Peripheral pulses: dorsalis pedis present Neuro General: patient oriented x3, gait normal and no focal motor deficits Extrem Other: Monofilament sensation intact bilaterally. Vibratory sensation intact bilaterally. Skin intact. No calf tenderness noted. Legs are symmetrical. No edema. General: Yes normal to inspection Results AMB Hemoglobin A1c AMB Hemoglobin A1c 7.6 % Last Edit by LAZARO Acevedo on 02/18/25 10:08 Results Reviewed Results Reviewed: Laboratory Last Values Glucose (Clinic) 134 mg/dL (60-115) H 02/18/25 09:52 Laboratory Tests 08/09/24 09/17/24 11/19/24 06:20 06:41 10:57 Sodium Potassium Chloride Carbon Dioxide Anion Gap BUN Creatinine Estimated GFR Random Glucose Hgb A1c (Clinic) 8.2 H Triglycerides 113 Cholesterol 130 LDL Cholesterol, Calc 68 HDL Cholesterol 40 L Urine Creatinine 84.11 Urine Microalbumin 29.0 Microalb/Creat Ratio 34.4 H 01/07/25 07:02 Sodium 140 Potassium 4.3 Chloride 111 H Carbon Dioxide 26 Anion Gap 7 L BUN 18 H Creatinine 1.17 Estimated GFR > 60 Random Glucose 83 Hgb A1c (Clinic) Triglycerides Cholesterol LDL Cholesterol, Calc HDL Cholesterol Urine Creatinine Urine Microalbumin Microalb/Creat Ratio Assessment & Plan Assessment & Plan (1) Uncontrolled type 2 diabetes mellitus with hyperglycemia, with long-term current use of insulin: Code(s): E11.65 - Type 2 diabetes mellitus with hyperglycemia; Z79.4 - intermediate (current) use of insulin Category: Medical Plan: Continue Tresiba 30 units, continue Humalog 6 units 3 times a day with meals, continue metformin 500 mg twice a day, continue Jardiance 25 mg daily. Increase Ozempic to 1 mg weekly. Congratulated him on significant improvement of his A1c but did discuss not quite at goal. (2) Essential hypertension: Code(s): I10 - Essential (primary) hypertension Category: Medical Plan: WNL. Continue current regimen (3) Pure hypercholesterolemia: Code(s): E78.00 - Pure hypercholesterolemia, unspecified Category: Medical Plan: Controlled on atorvastatin 40 mg (4) CKD (chronic kidney disease) stage 3, GFR 30-59 ml/min: Code(s): N18.30 - Chronic kidney disease, stage 3 unspecified Category: Medical Qualifiers: Chronic kidney disease stage 3 subtype: stage 3a (GFR 45-59) Qualified Code(s): N18.31 - Chronic kidney disease, stage 3a Plan: Stable. We will continue to monitor. Labs ordered to be rechecked in 3 months. (5) Lower leg pain: Code(s): M79.669 - Pain in unspecified lower leg Category: Medical Plan: We will check CK, LFTs, urine and ultrasound of lower legs. Referral to vascular for possible claudication We will follow up pending test results. Advised patient to follow up sooner if anything worsens or changes. Advised to follow up with PCP. Orders: Orders AMB Hemoglobin A1c Today E11.65 - Type 2 diabetes mellitus with hyperglycemia, Z13.9 - Encounter for screening, unspecified, Z79.4 - intermediate (current) use of insulin B Type Natriuretic Peptide 3 Months E11.65 - Type 2 diabetes mellitus with hyperglycemia, E78.00 - Pure hypercholesterolemia, unspecified, I10 - Essential (primary) hypertension, N18.31 - Chronic kidney disease, stage 3a, Z79.4 - intermediate (current) use of insulin Hemoglobin A1c Today E11.65 - Type 2 diabetes mellitus with hyperglycemia, E78.00 - Pure hypercholesterolemia, unspecified, I10 - Essential (primary) hypertension, N18.31 - Chronic kidney disease, stage 3a, R73.01 - Impaired fasting glucose, Z79.4 - 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 Liver Panel Today M79.669 - Pain in unspecified lower leg Creatine Kinase Total Today M79.669 - Pain in unspecified lower leg Referrals Vascular Surgery Referral I73.9 - Peripheral vascular disease, unspecified Medications: New semaglutide (Ozempic) 1 mg (0.75 mL) subcut QWEEK 3 mL 5RF Discontinued semaglutide (Ozempic) Discontinued Reason: Doctor's Order 0.5 mg (0.736 mL) subcut QWEEK 3 mL 1RF Coding Level of Care Code Est Pt Level 4 (19374) Complex EM visit Add On G2211 Diagnoses Uncontrolled type 2 diabetes mellitus with hyperglycemia, with long-term current use of insulin E11.65; Z79.4 Essential hypertension I10 Pure hypercholesterolemia E78.00 Stage 3a chronic kidney disease N18.31 Chronic kidney disease stage 3 subtype: stage 3a (GFR 45-59) Lower leg pain M79.669
[2025-02-18 09:55] LABS: Glucose, Whole Blood 134 mg/dL (60-115)
--- OUTSIDE RECORDS SUMMARY | 2025-02-18 10:58 | XMS_ITS | Clinical Summary ---
Author Organization [facility] Address [address] [place] [address] Phone Care Team Providers Care Cephalometric Analyst Name Role Phone Rose Mary Jones MD Primary Care Provider [phone] Allergies No known active allergies Medications albuterol [...] Ye ars (1 of 2 - PCV) 1969 Colorectal Cancer Screening: Annual FOBT 1999 Colorectal Cancer Screening: Colonoscopy 1999 Colorectal Cancer Screening: Sigmoidoscopy 1999 Influenza Vaccine (Season Ended) 2025 Hepatitis B Vaccine Aged Out No longe r eligible based on patient's age to complete this topic Insurance [facility] ([id number]) [facility] ([id number]) Care Teams Cephalometric Analyst Relationship Specialty Start Date End Date Rose Mary Jones MD [address] [place] PCP - General 11/03/20
== END 2025-02-18 10:17 | disposition home or self-care (01) ==
LOC: HO.ENCR 09:44
PROVIDERS: PCP Internal Medicine; Visit Provider Physician Assistant
DX: E11.65 Type 2 diabetes mellitus with hyperglycemia (principal); Z79.4 Long term (current) use of insulin; I10 Essential (primary) hypertension; E78.00 Pure hypercholesterolemia, unspecified; N18.31 Chronic kidney disease, stage 3a; M79.669 Pain in unspecified lower leg; Z13.9 Encounter for screening, unspecified

== ENCOUNTER → 2025-02-18 09:43 | Outpatient (BNVA) | payer OTHER, SELFPAY | PROVIDERS: PCP Internal Medicine; Visit Provider Physician Assistant | DX: Z13.89 Encounter for screening for other disorder (principal) | CPT/HCPCS: 82947; 83036; 99212 ==

== ENCOUNTER 2025-02-18 10:29 | Outpatient (REF) | payer OTHER, SELFPAY ==
--- OUTSIDE RECORDS SUMMARY | 2025-02-18 12:19 | XMS_ITS | Clinical Summary ---
Author Organization [facility] Address [address] [place] [address] Phone Care Team Providers Care Trimming Machine Set Up Operator Name Role Phone Rose Mary Jones MD Primary Care Provider [phone] Allergies No known active allergies Medications albuterol [...] patient's age to complete this topic Insurance [facility] ([id number]) [facility] ([id number]) Care Teams Trimming Machine Set Up Operator Relationship Specialty Start Date End Date Rose Mary Jones MD [address] [place] PCP - General 11/03/20
[2025-02-18 13:32] LABS: Appearance Urine Clear; Color Urine Yellow; Glucose Urine UA >=1000 mg/dL (Negative); Leukocyte Esterase Urine Negative (Negative); Nitrite Urine Negative (Negative); PH 5.5 (5.0-9.0); Specific Gravity - Urine 1.025 (1.005-1.025); UMIC TRIGGER UACC YES; Urine Blood Negative (Negative); Urine Ketones Negative (Negative); Urine Protein Trace mg/dL (Neg-Trace)
[2025-02-18 13:37] LABS: Estimated Average Glucose 163 mg/dL; Hemoglobin A1C 191.1899 umol/L; Hemoglobin A1c % 7.3 % (<6.0); Total Hemoglobin (HGBA1C) 3367.1281 umol/L
[2025-02-18 14:10] LABS: Alanine Aminotransferase 22 U/L (0-40); Albumin Level 4.3 g/dL (3.5-5.0); Alkaline Phosphatase 110 U/L (39-117); Aspartate Amino Transferase 23 U/L (5-37); Bilirubin Direct 0.2 mg/dL (0.0-0.5); Bilirubin Total 0.5 mg/dL (0.0-1.0); Total Protein 7.2 g/dL (6.5-8.0)
[2025-02-18 14:25] LABS: Bacteria Urine None Seen (None Seen); Hyaline Casts Urine 0-2 /LPF (0-2); RBC Urine 0-2 /HPF (0-2); Squamous Epithelial Cell Urine 0-2 /HPF (0-2); WBC Urine 0-5 /HPF (0-5)
== END 2025-02-18 10:30 | disposition home or self-care (01) ==
LOC: HO.10HDL 10:29
PROVIDERS: Visit Provider Physician Assistant
DX: E11.65 Type 2 diabetes mellitus with hyperglycemia (principal); E78.00 Pure hypercholesterolemia, unspecified; Z13.220 Encounter for screening for lipoid disorders; I12.9 Hypertensive chronic kidney disease with stage 1 through stage 4 chronic kidney disease, or unspecified chronic kidney disease; E11.22 Type 2 diabetes mellitus with diabetic chronic kidney disease; N18.31 Chronic kidney disease, stage 3a; Z79.4 Long term (current) use of insulin
CPT/HCPCS: 36415; 80076; 81001; 82550; 83036

== ENCOUNTER 2025-02-21 15:42 | Outpatient (AMB) | payer OTHER, SELFPAY ==
[2025-02-21 16:11] VITALS: BP 116/62; PULSE 75; RESP 16; TEMP 37.4; O2SAT 98; BMI 26.5
--- NOTE | 2025-02-21 16:11 | A.OFFPC_ITS ---
Vital Signs 02/21/25 16:11 Height 5 ft 5 in Weight 159 lb 3.2 oz BMI 26.5 BP 116/62 Blood Pressure Location Lt brachial Position Sitting Respiration 16 Pulse 75 Pulse Source Pulse Oximeter Temp 99.4 F Temp Source Oral Pulse Oximetry (%) 98 Oxygen Delivery Method Room Air Intake Visit Reasons: Pain in ear Certified Orthoptist Required: No Certified Orthoptist Name: Pt declined Accompanied by: Self / Same As Patient Allergies gabapentin Allergy (Mild, Verified 02/21/25 16:47) Itching Medication List - Last Reconciled 02/21/25 by COLLINS Osei acetaminophen (Tylenol Extra Strength) 500 mg PO Q6H PRN albuterol sulfate 2.5 mg (3 mL) inhalation Q4-6H PRN amlodipine 10 mg PO DAILY atorvastatin 40 mg PO DAILY 90 days blood sugar diagnostic ([employer] Verio test strips) test twice per day blood-glucose meter ([employer] Verio Flex Start kit) test twice per day blood-glucose sensor (EvedStyle Jarrod 3 Sensor device) Apply every 14 days As directed to monitor blood glucose blood-glucose,administrative manager,cont (FreeStyle Jarrod 3 [place]) Use daily As directed to monitor blood glucose cholecalciferol (vitamin D3) 25 mcg PO DAILY 90 days empagliflozin (Jardiance) 25 mg PO DAILY 90 days fluticasone propionate 110 mcg/actuation (Flovent HFA) 1 puff PO BID 30 days gabapentin 100 mg PO BEDTIME glucose (Dex4 Glucose) 16 grams (4 x 4 gram) PO Q15M PRN insulin degludec (Tresiba FlexTouch U-200 insulin) 30 units subcut DAILY insulin lispro (Humalog KwikPen (U-100) Insulin) 6 units (0.06 mL) subcut TID lancets test twice per day losartan 100 mg PO DAILY 90 days metformin 500 mg PO BID 90 days metoprolol succinate ER 100 mg PO DAILY nebulizers As directed pen needle, diabetic (1st Tier Unifine Pentips) Use 1 pen needle once a da semaglutide (Ozempic) 1 mg (0.75 mL) subcut QWEEK Ventolin HFA 90 mcg/actuation (albuterol sulfate) 2 puffs inhalation Q6H PRN 30 days NS Tobacco use date assessed: 02/21/25 Fall risk assessment: No Falls in past year Last assessed Fall Risk: 02/21/25 Dental Screening Dental Screen Date: 02/21/25 Did you have a dental visit in the last 12 months?: Yes Did you have a dental problem in the last 6 months where you did not have access to dental care?: No Was dental information given to patient?: Patient has dentist HPI Pain in ear HPI Details The patient is a 74-year-old male presenting with ear pain. Symptoms include bilateral earache that commenced a few days ago, notably more severe on the right side. The patient denies the presence of nasal congestion, sore thro at, or other respiratory symptoms. A previous episode of otitis media was recalled and he was Treated by his specialists. He reports a known allergy to gabapentin, manifesting as itchiness. There are no other known allergies. The persistence of the pain and concern over a potential infection led to this consultation. 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 Son No problems noted. Son No problems noted. Son No problems noted. Social History Household Members: Spouse Housing: Apartment Are you a primary caretaker grounds to a significant other at home: No Do you presently have visiting nurse or other home services: Yes Alcohol intake: former Patient Tobacco Use Status: Former Tobacco user Tobacco use type: Cigarette e-Cigarette/Vaping Use: Never Used Second Hand Smoke Exposure: No Advance Directives Date on File: 07/30/20 service: No Current occupational status: retired Cognitive needs: No Hearing needs: No Vision needs: Yes (Glasses) Questionnaire Thrive Questionnaire Date Thrive assessed: 02/21/25 I am a: Patient What is your living situation today?: I have a steady place to live Within the past 12 months, did the food you bought not last and you didn't have the money to get more?: Never true Within the past 12 months, did you worry whether your food would run out before you got money to buy more?: Never true Do you have trouble paying for medicines?: No Do you have trouble getting transportation to medical appointments?: No Do you have trouble paying your heating and electricity bill?: No Do you have trouble taking care of your child, family member or friend?: No Do you have trouble with day-to-day activities such as bathing, preparing meals, shopping, managing finances, etc.?: No Are you currently unemployed and looking for a job?: No Are you interested in more education?: No Please select the resources that you would like help with: None Currently or been in a relationship where the following occur: No concerns reported THRIVE Score: 0 AUDIT C Alcohol Use Questionnaire (AUDIT-C) 1. How often do you have a drink containing alcohol?: Never Total Score: 0 Score Reviewed/Action Taken: No DAX-7 AMB Questionnaire DAX-7 Date DAX - 7 assessed: 01/21/25 Source: Developed by Drs. Jose Mandujano, Yamel Weaver, Adrian Dee and colleagues, with an educational barry from [employer]. Review of Systems Const Denies headache(s) Eyes Denies loss of vision ENT Denies vertigo, Denies dizziness, Reports otalgia, Denies headache(s), Denies hearing loss, Denies nasal congestion, Denies sinus pain and Denies sore throat Card Denies chest pain, Denies leg edema and Denies lightheadedness Resp Denies cough, Denies hemoptysis and Denies wheezing GI Reports abdominal pain Neuro Denies vertigo, Denies dizziness, Denies headache(s) and Denies loss of vision Aller/Immun Denies wheezing Physical exam (Primary Care) Vital Signs: Last Vital Signs Temp 99.4 F 02/21/25 16:11 Pulse 75 02/21/25 16:11 Resp 16 02/21/25 16:11 BP 116/62 02/21/25 16:11 Pulse Ox 98 02/21/25 16:11 Oxygen Delivery Method Room Air 02/21/25 16:11 BMI result Body Mass Index 26.5 Tobacco/Smoking Status: Tobacco use Status Tobacco use date assessed 02/21/25 02/21/25 16:20 Patient Tobacco Use Status Former Tobacco user 02/21/25 16:20 Tobacco use type Cigarette 02/21/25 16:20 e-Cigarette/Vaping Use Never Used 02/21/25 16:20 Thrive Assessment: Date of Thrive Assessment Date Thrive assessed 02/21/25 02/21/25 16:20 Currently or been in a relationship where the following occur: No concerns reported Const General: healthy appearing, no acute distress, alert and awake Nutritional Appearance: well nourished Orientation/consciousness: oriented to person, oriented to place and oriented to time HENMT Ears: Abnormal EAC present (left ear completely impacted, unable to see TM) and TM abnormal bulging, dull (opague), wth effusion and with loss of landmarks General nose exam: Normal nasal mucous membranes and turbinates present Eyes Conjunctivae: conjunctivae normal Sclerae: sclerae normal Pupils: Equal, round and reactive pupils present Neck Neck: Yes no lymphadenopathy and Yes no JVD Thyroid: Thyroid normal Carotids: no bruits Resp Effort & Inspection: normal respiratory effort and not tachypneic Auscultation: no crackles, no rales, no rhonchi and no wheezes Cardio Rate: regular rate Rhythm: regular rhythm Heart sounds: no murmurs and normal S1 and S2 Neuro General: oriented to person, oriented to place and oriented to time Cranial nerves: Yes Equal, round and reactive pupils present Gait exam (Neuro): Normal gait present Motor exam (neuro): no tremor noted Coding Level of Care Code Est Pt Level 3 (91418) Diagnoses Acute otitis media, unspecified otitis media type H66.90 Otitis media type: unspecified Chronicity: acute Time Spent (min) 28 Assessment & Plan Assessment & Plan (1) Otitis media: Code(s): H66.90 - Otitis media, unspecified, unspecified ear Category: Medical Qualifiers: Otitis media type: unspecified Chronicity: acute Qualified Code(s): H66.90 - Otitis media, unspecified, unspecified ear Plan I assessed the patient with otitis media in the right ear and potential involvement of the left ear due to obstructing cerumen. The patient will begin a course of Augmentin, administered at a dosage of twice daily for 10 days, to address the infection. These tablets should be consumed with small food quantities to mitigate any gastrointestinal side effects. Regarding cerumen management, the patient is counseled to avoid removal attempts until after completing antibiotic treatment. At that stage, the patient may use Debrox ear drops for wax removal if necessary. A follow-up appointment with Dr. Nicole is scheduled in April, with instructions to contact sooner should symptoms persist. Patient was informed and verbally consented to the use of an ambient scribe for clinic note documentation during this visit. Medications: New amoxicillin-pot clavulanate 875-125 mg 1 tab PO BID 10 days 20 tabs 0RF AMOL Osei-C H66.90 - Otitis media, unspecified, unspecified ear Changed From gabapentin 200 mg (2 x 100 mg) PO BEDTIME 90 days 180 caps 0RF To gabapentin 100 mg PO BEDTIME Rose Mary Mcneill MD Patient Instructions: - Take Augmentin twice daily for 10 days. - Consume the medication with some food to prevent stomach upset. - Do not attempt to clear ear wax until after the infection is resolved. - Consider using Debrox ear drops after completing antibiotics for residual ear wax. - Follow up in April with Dr. Nicole as scheduled. - Contact us if there is no improvement or if symptoms worsen.
--- OUTSIDE RECORDS SUMMARY | 2025-02-21 17:18 | XMS_ITS | Clinical Summary ---
Author Organization [facility] Address [address] [place] [address] Phone Care Team Providers Care Manager Diabetes Name Role Phone Rose Mary Jones MD Primary Care Provider [phone] Allergies No known active allergies Medications albuterol [...] patient's age to complete this topic Insurance [facility] ([id number]) [facility] ([id number]) Care Teams Manager Diabetes Relationship Specialty Start Date End Date Rose Mary Jones MD [address] [place] PCP - General 11/03/20
== END 2025-02-21 17:03 | disposition home or self-care (01) ==
LOC: HO.HMCH 15:42
PROVIDERS: PCP Internal Medicine
DX: H66.90 Otitis media, unspecified, unspecified ear (principal)

== ENCOUNTER → 2025-02-21 15:42 | Outpatient (BNVA) | payer OTHER, SELFPAY | PROVIDERS: PCP Internal Medicine | DX: H66.91 Otitis media, unspecified, right ear (principal) | CPT/HCPCS: 99212 ==

== ENCOUNTER 2025-02-26 10:17 | Outpatient (AMB) | payer OTHER, SELFPAY ==
[2025-02-26 10:20] VITALS: BP 118/62; PULSE 66; O2SAT 95; BMI 26.5
--- NOTE | 2025-02-26 10:20 | HO.NEPHOV ---
Vital Signs 02/26/25 10:20 Height 5 ft 5 in Weight 159 lb BMI 26.5 BP 118/62 Blood Pressure Location Lt brachial Position Sitting Pulse 66 Pulse Source Pulse Oximeter Pulse Oximetry (%) 95 Oxygen Delivery Method Room Air Intake Visit Reasons: CKD/ Conf Physics Technician Required: No Physics Technician Services: Physics Technician Offered & Declined Accompanied by: Self / Same As Patient Allergies gabapentin Allergy (Mild, Verified 02/26/25 10:22) Itching Medication List - Last Reconciled 02/26/25 by Maikol Davis MD acetaminophen (Tylenol Extra Strength) 500 mg PO Q6H PRN albuterol sulfate 2.5 mg (3 mL) inhalation Q4-6H PRN amlodipine 10 mg PO DAILY amoxicillin-pot clavulanate 875-125 mg 1 tab PO BID 10 days atorvastatin 40 mg PO DAILY 90 days blood sugar diagnostic (Amarin Verio test strips) test twice per day blood-glucose meter (Amarin Verio Flex Start kit) test twice per day blood-glucose sensor (eVropaStyle Jarrod 3 Sensor device) Apply every 14 days As directed to monitor blood glucose blood-glucose,delivery specialist,cont (FreeStyle Jarrod 3 Horatio) Use daily As directed to monitor blood glucose cholecalciferol (vitamin D3) 25 mcg PO DAILY 90 days empagliflozin (Jardiance) 25 mg PO DAILY 90 days fluticasone propionate 110 mcg/actuation (Flovent HFA) 1 puff PO BID 30 days gabapentin 100 mg PO BEDTIME glucose (Dex4 Glucose) 16 grams (4 x 4 gram) PO Q15M PRN insulin degludec (Tresiba FlexTouch U-200 insulin) 30 units subcut DAILY insulin lispro (Humalog KwikPen (U-100) Insulin) 6 units (0.06 mL) subcut TID lancets test twice per day losartan 100 mg PO DAILY 90 days metformin 500 mg PO BID 90 days metoprolol succinate ER 100 mg PO DAILY nebulizers As directed pen needle, diabetic (1st Tier Unifine Pentips) Use 1 pen needle once a da semaglutide (Ozempic) 1 mg (0.75 mL) subcut QWEEK Ventolin HFA 90 mcg/actuation (albuterol sulfate) 2 puffs inhalation Q6H PRN 30 days NS HPI Comments Details: . Zuhair is a 74 man with a history of longstanding diabetes mellitus. He has history of CKD with a baseline creatinine between 1.3 and 1.6 mg/dL. He has had few episodes of mild JOHN s He has been referred for evaluation of CKD. [facility] Medical History Myocardial infarction Arthritis Pulmonary nodule Cavitary pneumonia MRSA bacteremia Hypovitaminosis D Former smoker Hyperparathyroidism Annual physical exam CAD (coronary artery disease) Former smoker Obese Microalbuminuria CKD (chronic kidney disease) stage 3, GFR 30-59 ml/min care home (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 Son No problems noted. Son No problems noted. Son No problems noted. Social History Household Members: Spouse Housing: Apartment Are you a primary companion caregiver to a significant other at home: No Do you presently have visiting nurse or other home services: Yes Alcohol intake: former Patient Tobacco Use Status: Former Tobacco user Tobacco use type: Cigarette e-Cigarette/Vaping Use: Never Used Second Hand Smoke Exposure: No Advance Directives Date on File: 07/30/20 service: No Current occupational status: retired Cognitive needs: No Hearing needs: No Vision needs: Yes (Glasses) Physical Exam Vital Signs: Last Vital Signs Pulse 66 02/26/25 10:20 BP 118/62 02/26/25 10:20 Pulse Ox 95 02/26/25 10:20 Oxygen Delivery Method Room Air 02/26/25 10:20 BMI result Body Mass Index 26.5 Comfortable Neck supple no JVD. Lungs entry equal no rales. Heart S1-S2 heard no gallop or rub. Abdomen soft nontender. Neuro alert awake oriented. No asterixis. Extremities no edema. Results Reviewed Nephrology Results: Sodium 140 mmol/L (135-145) 01/07/25 Potassium 4.3 mmol/L (3.3-5.1) 01/07/25 Chloride 111 mmol/L (96-108) H 01/07/25 Carbon Dioxide 26 mmol/L (22-29) 01/07/25 BUN 18 mg/dL (9-16) H 01/07/25 Creatinine 1.17 mg/dL (0.5-1.4) 01/07/25 Calcium 9.1 mg/dL (8.4-10.2) 01/07/25 PTH Intact 110.8 pg/mL (8.7-77.1) H 01/07/25 Urine Protein Trace mg/dL (Neg-Trace) 02/18/25 Assessment & Plan Assessment & Plan (1) CKD (chronic kidney disease) stage 3, GFR 30-59 ml/min: Code(s): N18.30 - Chronic kidney disease, stage 3 unspecified Category: Medical Qualifiers: Chronic kidney disease stage 3 subtype: stage 3a (GFR 45-59) Qualified Code(s): N18.31 - Chronic kidney disease, stage 3a Plan Zuhair and CKD 3 in a setting of longstanding hypertension diabetes mellitus. He is minimal proteinuria. Urine microalbumin creatinine ratio was 71. Creatinine has improved Goal is to slow the progression of the kidney disease. Agree with NATACHA inhibition along with SGLT2 inhibitors to slow the progression of renal disease. Blood pressure be maintained less than 130/80. Currently blood pressure is acceptable. We discussed importance of tight control of blood sugar and to maintain A1c less than 7%. Encouraged him to increase physical activities Continue with low-sodium diet. He has mild secondary hyperparathyroidism. Serum calcium normal We will monitor for now. Coding Level of Care Code Est Pt Level 4 (05965) Diagnoses Stage 3a chronic kidney disease N18.31 Chronic kidney disease stage 3 subtype: stage 3a (GFR 45-59)
--- OUTSIDE RECORDS SUMMARY | 2025-02-26 11:46 | XMS_ITS | Clinical Summary ---
Author Organization [facility] Address [address] [place] [address] [place] [address] Phone Care Team Providers Care Clinical Data Associate Name Role Phone Rose Mary Jones MD Primary Care Provider [phone] Allergies No known active allergies Medications albuterol [...] patient's age to complete this topic Insurance [facility] ([id number]) [facility] ([id number]) Care Teams Clinical Data Associate Relationship Specialty Start Date End Date Rose Mary Jones MD [address] [place] PCP - General 11/03/20
== END 2025-02-26 10:37 | disposition home or self-care (01) ==
LOC: HO.HKA 10:17
PROVIDERS: PCP Internal Medicine; Visit Provider Internal Medicine Hypertension Specialist
DX: N18.31 Chronic kidney disease, stage 3a (principal)
CPT/HCPCS: 99214

== ENCOUNTER → 2025-02-26 10:17 | Outpatient (BNVA) | payer OTHER, SELFPAY | PROVIDERS: PCP Internal Medicine; Visit Provider Internal Medicine Hypertension Specialist | DX: N18.31 Chronic kidney disease, stage 3a (principal) | CPT/HCPCS: 99212 ==

== ENCOUNTER 2025-02-28 09:13 | Outpatient (AMB) | payer OTHER, SELFPAY ==
--- NOTE | 2025-02-28 09:14 | A.OFFVIS_ITS ---
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 He states he has bilateral leg pain but the left is worse. Feels a pulling sensation. This pain has been on and off for about a year. Patient is diabetic, non smoker. 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 This discomfort is significantly noted at night. The leg pain does not intensify severely with walking, remaining minor in intensity compared to when the patient is in bed. The patient's medical history includes more than ten years of diabetes mellitus, which poses as a substantial risk factor for peripheral vascular complications. A noteworthy medical detail includes smoking cessation that occurred over thirty years prior, following long-term exposure of smoking approximately three-fourths of a pack per day. Current medications include metoprolol and agents managing diabetes. He is not on aspirin therapy. He reports difficulty ambulating more than several blocks. Of note he has venous insufficiency testing scheduled. 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 Son No problems noted. Son No problems noted. Son No problems noted. Social History Household Members: Spouse Housing: Apartment Are you a primary skin care instructor to a significant other at home: No Do you presently have visiting nurse or other home services: Yes Alcohol intake: former Patient Tobacco Use Status: Former Tobacco user Tobacco use type: Cigarette e-Cigarette/Vaping Use: Never Used Second Hand Smoke Exposure: No Advance Directives Date on File: 07/30/20 service: No Current occupational status: retired Cognitive needs: No Hearing needs: No Vision needs: Yes (Glasses) Review of Systems Const All systems reviewed & are unremarkable except as noted in HPI and below Reports no additional complaints ENT Reports Normal hearing present Card Denies chest pain, Denies chest pain at rest, Denies chest pain with activity and Denies pedal edema Resp Denies cough GI Denies abdominal pain Musc Denies abnormal gait, Denies muscle cramps and Denies radiating pain into limb Skin/Breast Denies skin ulcer and Denies wounds Neuro Reports Normal hearing present and Denies abnormal gait Psych Reports no additional complaints Physical Exam Const General: cooperative, healthy appearing and comfortable Orientation/consciousness: oriented to person, oriented to place and oriented to time HEENT Head: Yes normal to inspection Neck Neck: Yes normal visual inspection Carotids: no bruits Chest Chest palpation & inspection: normal inspection of the chest Resp Effort & Inspection: normal respiratory effort and able to speak in complete sentences Auscultation: clear to auscultation bilaterally, no crackles, no rales, no rhonchi and no wheezes Cardio Other: Diminished dorsalis pedis pulses bilaterally Rate: regular rate Rhythm: regular rhythm Heart sounds: S1 normal heart sound present and S2 normal heart sound present Bruits: no carotid bruits GI Inspection: Yes normal to inspection Skin Wounds: no wounds Hair: normal Neuro General: oriented to person, oriented to place and oriented to time Cranial nerves: Yes CN's II-XII intact bilaterally and Yes Normal hearing present Cognition (Neuro): normal cognition Motor exam (neuro): 5/5 motor strength present throughout Extrem Other: venous exam: +2 edema bilaterally General: No clubbing, No cyanosis and Yes edema Psych Appearance: grossly normal Mental Status: mental status grossly normal Speech and movement: Normal speech and movement present Assessment & Plan Assessment & Plan (1) PAD (peripheral artery disease): Code(s): I73.9 - Peripheral vascular disease, unspecified Category: Medical Plan: The concern here is he may have an element of PAD. Due to his longstanding history of diabetes. I have taken the liberty of ordering noninvasive arterial testing. I discussed the likelihood of peripheral vascular disease symptoms resulting from long-term diabetes and the need for an ultrasound to evaluate leg circulation comprehensively. I explained the contributions of regular walking and adherence to a heart-healthy diet in managing symptoms and preventing progression. The patient expressed understanding, and no objections to the outlined management plan were noted. Follow-up review post-ultrasound was recommended to discuss results and further interventions. (2) Varicose veins of right lower extremity with inflammation: Code(s): I83.11 - Varicose veins of right lower extremity with inflammation Category: Medical Plan: Patient has been scheduled for venous insufficiency testing by the primary care team. We will follow up on that as well. Orders: Orders US arterial duplex LE BI 1 Week I73.9 - Peripheral vascular disease, unspecified Coding Level of Care Code New Pt Level 4 (68310) Diagnoses PAD (peripheral artery disease) I73.9 Varicose veins of right lower extremity with inflammation I83.11
--- OUTSIDE RECORDS SUMMARY | 2025-02-28 09:48 | XMS_ITS | Clinical Summary ---
Author Organization [facility] Address [address] [place] [address] [place] [address] Phone Care Team Providers Care Control System Computer Scientist Name Role Phone Rose Mary Jones MD Primary Care Provider [phone] Allergies No known active allergies Medications albuterol [...] patient's age to complete this topic Insurance [facility] ([id number]) [facility] ([id number]) Care Teams Control System Computer Scientist Relationship Specialty Start Date End Date Rose Mary Jones MD [address] [place] PCP - General 11/03/20
== END 2025-02-28 09:45 | disposition home or self-care (01) ==
LOC: HO.HVS 09:13
PROVIDERS: PCP Internal Medicine; Visit Provider Surgery Vascular Surgery
DX: I73.9 Peripheral vascular disease, unspecified (principal); I83.11 Varicose veins of right lower extremity with inflammation
CPT/HCPCS: 99204

== ENCOUNTER → 2025-02-28 09:13 | Outpatient (BNVA) | payer OTHER, SELFPAY | PROVIDERS: PCP Internal Medicine; Visit Provider Surgery Vascular Surgery | DX: I83.11 Varicose veins of right lower extremity with inflammation (principal); E11.51 Type 2 diabetes mellitus with diabetic peripheral angiopathy without gangrene | CPT/HCPCS: 99202 ==

== ENCOUNTER 2025-03-05 10:07 | Outpatient (REF) | payer OTHER, SELFPAY ==
--- NOTE | ~2025-03-05 | US_ITS ---
EXAMINATION: US LOWER EXTREMITY VENOUS (REFLUX EXAM), BILATERAL CLINICAL INFORMATION: Varices COMPARISON: None. TECHNIQUE: Color flow triplex imaging and compression Doppler was performed to evaluate both the deep and the superficial systems bilaterally. To evaluate the superficial system, the examination was performed in the upright position. Color-flow Doppler ultrasound and compression ultrasound were utilized. In addition, maneuvers were utilized to demonstrate reflux. FINDINGS: 1. DEEP VENOUS ULTRASOUND OF THE RIGHT LOWER EXTREMITY: Common Femoral Vein: Compressible, normal respiratory variation and augmented flow. Femoral Vein: Compressible, normal color flow and augmentation. Popliteal Vein: Compressible, normal augmentation. Deep Reflux: There is no evidence of reflux in the deep system in either the common femoral vein, superficial femoral or the popliteal vein. There is no evidence of a Almaguer's cyst. 2. SUPERFICIAL ULTRASOUND WITH DOPPLER OF RIGHT LOWER EXTREMITY: GREAT SAPHENOUS VEIN: Saphenofemoral Junction: 0.4 cm; Reflux: 0 ms Proximal Thigh: 0.2 cm; Reflux: 0 ms Mid Thigh: 0.2 cm; Reflux: 0 ms Distal Thigh: 0.2 cm; Reflux: 0 ms At Knee: 0.2 cm; Reflux: 0 ms Proximal Calf: 0.2 cm; Reflux: 0 ms Mid Calf: 0.2 cm; Reflux: 0 ms Distal Calf: 0.1 cm; Reflux: 0 ms DUPLICATED MEDIAL GREAT SAPHENOUS VEIN: Diameter: None imaged Reflux: NA DUPLICATED LATERAL GREAT SAPHENOUS VEIN: Diameter: None imaged Reflux: NA SMALL SAPHENOUS VEIN: Saphenopopliteal Junction: 0.3 cm; Reflux: 0 ms Proximal: 0.2 cm; Reflux: 0 ms Distal: 0.3 cm; Reflux: 0 ms VEIN OF GIACOMINI: Size: NA Reflux: NA PERFORATORS: Location: Proximal thigh, mid and proximal calf. Size: 0.1-0.3 cm. Reflux: NA VARICOSITIES: Location: None imaged. Size: NA Reflux: NA 3. DEEP VENOUS ULTRASOUND OF THE LEFT LOWER EXTREMITY: Common Femoral Vein: Compressible, normal respiratory variation and augmented flow. Femoral Vein: Compressible, normal color flow and augmentation. Popliteal Vein: Compressible, normal augmentation. Deep Reflux: There is no evidence of reflux in the deep system in either the common femoral vein, superficial femoral or the popliteal vein. There is no evidence of a Almaguer's cyst. 4. SUPERFICIAL ULTRASOUND WITH DOPPLER OF LEFT LOWER EXTREMITY: GREAT SAPHENOUS VEIN: Saphenofemoral Junction: 0.5 cm; Reflux: 0 ms Proximal Thigh: 0.4 cm; Reflux: 0 ms Mid Thigh: 0.2 cm; Reflux: 0 ms Distal Thigh: 0.2 cm; Reflux: 0 ms At Knee: 0.2 cm; Reflux: 0 ms Proximal Calf: 0.2 cm; Reflux: 2448 ms Mid Calf: 0.2 cm; Reflux: 0 ms Distal Calf: 0.3 cm; Reflux: 0 ms DUPLICATED MEDIAL GREAT SAPHENOUS VEIN: Diameter: None imaged Reflux: NA DUPLICATED LATERAL GREAT SAPHENOUS VEIN: Diameter: 0.3 cm. Reflux: NA SMALL SAPHENOUS VEIN: Saphenopopliteal Junction: 0.3 cm; Reflux: 0 ms Proximal: 0.2 cm; Reflux: 0 ms Distal: 0.1 cm; Reflux: 0 ms VEIN OF GIACOMINI: Size: NA Reflux: NA PERFORATORS: Location: Mid thigh and calf. Size: 0.1-0.4 cm. Reflux: NA VARICOSITIES: Location: None Imaged Size: NA Reflux: NA US/US venous duplex LE BI IMPRESSION: Right: No venous insufficiency. No gross varices. Perforators without reflux. Left: Venous insufficiency, great saphenous vein below the knee. No varices. Perforators without reflux. Electronically signed by: Dominick Longoria MD 03/05/2025 11:34 AM EDT
--- OUTSIDE RECORDS SUMMARY | 2025-03-05 11:05 | XMS_ITS | Clinical Summary ---
Author Organization [facility] Address [address] [place] [address] Phone Care Team Providers Care Floorworker Name Role Phone Rose Mary Jones MD Primary Care Provider [phone] Allergies No known active allergies Medications albuterol [...] patient's age to complete this topic Insurance [facility] ([id number]) [facility] ([id number]) Care Teams Floorworker Relationship Specialty Start Date End Date Rose Mary Jones MD [address] [place] PCP - General 11/03/20
== END 2025-03-05 10:08 | disposition home or self-care (01) ==
LOC: HO.US 10:07
PROVIDERS: PCP Internal Medicine; Visit Provider Physician Assistant
DX: M79.661 Pain in right lower leg (principal); M79.662 Pain in left lower leg; R60.0 Localized edema
CPT/HCPCS: 93970

== ENCOUNTER → 2025-03-05 10:09 | Outpatient (BNV) | payer OTHER, SELFPAY | PROVIDERS: PCP Internal Medicine; Visit Provider Radiology Diagnostic Radiology | DX: I83.93 Asymptomatic varicose veins of bilateral lower extremities (principal) | CPT/HCPCS: 93970 ==

== ENCOUNTER 2025-03-14 08:27 | Outpatient (AMB) | payer OTHER, SELFPAY ==
--- OUTSIDE RECORDS SUMMARY | 2025-03-14 08:40 | XMS_ITS | Clinical Summary ---
Author Organization [facility] [place] Address [address] [place] [address] [place] [address] Phone Care Team Providers Care Rivet Driver Name Role Phone Rose Mary Jones MD Primary Care Provider [phone] Allergies No known active allergies Medications albuterol [...] patient's age to complete this topic Insurance [facility] ([id number]) [facility] ([id number]) Care Teams Rivet Driver Relationship Specialty Start Date End Date Rose Mary Jones MD [address] [place] PCP - General 11/03/20
--- NOTE | 2025-03-14 09:16 | MHC.AMDMED ---
Intake Intake Visit Reasons: 30 min Therapeutic Assistant Required: Yes Therapeutic Assistant Language: Swimming Pool Attendant Name: Stephane Chen Accompanied by: Self / Same As Patient Allergies gabapentin Allergy (Mild, Verified 02/28/25 09:18) Itching HPI Comprehensive Diabetes Asmnt Most Recent Diabetes Results: Hemoglobin A1c 9.0 % 11/02/19 Microalb/Creat Ratio 34.4 ug/mg cr (<30) H 08/09/24 Cholesterol 130 mg/dL (<200) 09/17/24 HDL Cholesterol 40 mg/dL (>40) L 09/17/24 Triglycerides 113 mg/dL (<150) 09/17/24 Creatinine 1.17 mg/dL (0.5-1.4) 01/07/25 Blood Urea Nitrogen 18 mg/dL (9-16) H 01/07/25 Sodium 140 mmol/L (135-145) 01/07/25 Potassium 4.3 mmol/L (3.3-5.1) 01/07/25 Chloride 111 mmol/L (96-108) H 01/07/25 Carbon Dioxide 26 mmol/L (22-29) 01/07/25 Calcium 9.1 mg/dL (8.4-10.2) 01/07/25 AST 23 U/L (5-37) 02/18/25 ALT 22 U/L (0-40) 02/18/25 Total Protein 7.2 g/dL (6.5-8.0) 02/18/25 Albumin 4.3 g/dL (3.5-5.0) 02/18/25 [facility] Medical History Myocardial infarction Arthritis Pulmonary nodule Cavitary pneumonia MRSA bacteremia Hypovitaminosis D Former smoker Hyperparathyroidism Annual physical exam CAD (coronary artery disease) Former smoker Obese Microalbuminuria CKD (chronic kidney disease) stage 3, GFR 30-59 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 Son No problems noted. Son No problems noted. Son No problems noted. Social History Household Members: Spouse Housing: Apartment Are you a primary respiratory care faculty to a significant other at home: No Do you presently have visiting nurse or other home services: Yes Alcohol intake: former Patient Tobacco Use Status: Former Tobacco user Tobacco use type: Cigarette e-Cigarette/Vaping Use: Never Used Second Hand Smoke Exposure: No Advance Directives Date on File: 07/30/20 service: No Current occupational status: retired Cognitive needs: No Hearing needs: No Vision needs: Yes (Glasses) Assessment & Plan Assessment & Plan (1) Uncontrolled type 2 diabetes mellitus with hyperglycemia, with long-term current use of insulin: Code(s): E11.65 - Type 2 diabetes mellitus with hyperglycemia; Z79.4 - 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 Reports frequently he gets low alerts, he is not experiencing hypoglycemia symptoms at these times so he uses glucometer to check glucose. Glucometer readings reports normal glucose range Patient declined to today's visit to adjust basal insulin He is taking Tresiba 20 units daily Humalog 8 units before breakfast 6 units before lunch and dinner At today's visit recommended patient reduce Humalog at breakfast to 6 units as well patient agreed to plan On 02/18/2025 patient's A1c use 7.3% this is an improvement from A1c 11/19/2024 of 8.2% Reviewed target goals with patient, Turkmen handout given Patient able to insert sensor independently at home without issue.? Portions of this note were created using voice recognition software, please excuse any words or phrases that may have been misinterpreted. Patient Instructions: [facility] 6 unidades de Humalog en el desayuno y mantenga 6 unidades de Humalog en el almuerzo y la electric clock mechanic. Si arias glucosa est? por debajo de 70, vuelva a valente 6 unidades de Humalog. Coding Level of Care Code Est Pt Level 1 (23694) Diagnoses Uncontrolled type 2 diabetes mellitus with hyperglycemia, with long-term current use of insulin E11.65; Z79.4
== END 2025-03-14 09:27 | disposition home or self-care (01) ==
LOC: HO.ENCR 08:28
PROVIDERS: PCP Internal Medicine; Visit Provider Registered Nurse Diabetes Educator
DX: E11.65 Type 2 diabetes mellitus with hyperglycemia (principal); Z79.4 Long term (current) use of insulin

== ENCOUNTER → 2025-03-14 08:27 | Outpatient (BNVA) | payer OTHER, SELFPAY | PROVIDERS: PCP Internal Medicine; Visit Provider Registered Nurse Diabetes Educator | DX: E11.65 Type 2 diabetes mellitus with hyperglycemia (principal); Z79.4 Long term (current) use of insulin | CPT/HCPCS: 99211 ==

== ENCOUNTER 2025-04-17 14:37 | Outpatient (REF) | payer OTHER, SELFPAY ==
--- NOTE | ~2025-04-17 | US_ITS ---
EXAMINATION: Noninvasive assessment of the bilateral lower extremities with ARTERIAL DUPLEX, ANKLE BRACHIAL INDICES (ABIs), and PULSE VOLUME RECORDINGS (PVRs). CLINICAL INFORMATION: Peripheral vascular disease, unspecified. TECHNIQUE: Duplex Doppler techniques with waveform analysis and measurement of velocities in the bilateral common femoral, profunda femoris, superficial femoral, popliteal and tibial arteries were performed. Additionally, ankle pulse volume recordings, ankle pressure measurements and ankle brachial indices were obtained of the lower extremity arterial system bilaterally. The study was performed only at rest. COMPARISON: None FINDINGS: DIRECT DUPLEX DOPPLER FINDINGS: RIGHT LEG: Common femoral artery: 110 cm/s, phasicity: Triphasic Profunda femoris artery: 82 cm/s, phasicity: Triphasic Superficial femoral artery (proximal): 65 cm/s, phasicity: Triphasic Superficial femoral artery (mid): 80 cm/s, phasicity: Triphasic Superficial femoral artery (distal): 92 cm/s, phasicity: Triphasic Popliteal artery: 76 cm/s, phasicity: Triphasic. Posterior tibial artery: 48 cm/s, phasicity: Triphasic. Peroneal artery: 36 cm/s, phasicity: Triphasic. Anterior tibial artery: 76 cm/s, phasicity: Triphasic. Dorsalis pedis artery: 39 cm/s, phasicity:Monophasic. LEFT LEG: Common femoral artery: 90 cm/s, phasicity: Triphasic. Calcified plaque. Profunda femoris artery: 95 cm/s, phasicity: Triphasic. Superficial femoral artery (proximal): 90 cm/s, phasicity: Triphasic. Superficial femoral artery (mid): 82 cm/s, phasicity: Triphasic. Superficial femoral artery (distal): 85 cm/s, phasicity: Triphasic. Popliteal artery: 95 cm/s, phasicity: Triphasic. Posterior tibial artery: 60-107 cm/s, phasicity: Triphasic Peroneal artery: 28 cm/s, phasicity: Monophasic Anterior tibial artery: 81 cm/s, phasicity: Monophasic. Dorsalis pedis artery: 30 cm/s, phasicity: Monophasic BRACHIAL PRESSURES: Right: 100 Left: Not documented. ANKLE PRESSURES: Right: PT 200, DP 200 Left: PT 200, DP 200 ANKLE-BRACHIAL INDEX: Right: 2.0 Left: 2.0 ANKLE PVR WAVEFORMS: Right: Normal Left: Normal US/US arterial duplex LE BI IMPRESSION: Right leg: Severe inflow disease, dorsalis base artery. Left leg: Severe inflow disease from the left peroneal artery to the dorsalis pedis artery. [place] Reference: - >1.4 = calcified vessels - 0.9 - 1.4 = normal - no significant arterial disease - 0.7 - 0.89 = mild peripheral arterial disease - 0.51 - 0.69 = moderate peripheral arterial disease - 0.50 = severe peripheral arterial disease - < .30 = critical arterial disease Electronically signed by: Dominick Longoria MD 04/18/2025 07:55 AM EDT
--- OUTSIDE RECORDS SUMMARY | 2025-04-17 17:30 | XMS_ITS | Patient Health Record ---
Author Organization [facility] Address [address] [place] [address] Care Team Providers Care Crew Leader Gluing Name Role Phone Vadim Terrell MD Primary Care Provider Richie Barnett Jr Unavailable Allergies Allergen (clinical drug ingredient) Drug/Non Drug Allergy documented on EMR Reaction Allergy Type Onset Date Status lisinopril Lisinopril Unknown Drug Allergy Activ e Reason For Referral No Information Medications Medication SIG (Take, Route, Frequency, Duration) Notes Start Date End Date Status Lantus 100 UNIT/ML 1 Subcutaneous as directed Active ProAir HFA 108 (90 Base) MCG/ACT 2 puffs as needed Inhalation every 4 hrs/prn Activ e Colyte with Flavor Packs 240 GM As directed Orally Over the specified time. for 1 day(s) 11/26/2015 Active Metoprolol Succinate ER 100 MG 1 tablet Orally Once a day A ctive Atorvastatin Calcium 40 MG 1 tablet Orally Once a day Active metFORMIN HCl 500 MG 1 tablet with meals Orally Once a day Active Onglyza 2.5 MG 1 tablet Orally Once a day Active Losartan Potassium 50 MG 1 tablet Orally Once a day Active glipiZIDE 5 MG 1 tablet Orally Once a day Active Immunizations Vaccine Route Administration Date Status Comme nts Flu vaccine no Preserv 3 and > Unknown 07/29/2015 Admin istered Problems Problem Type SNOMED Code ICD Code Onset Dates Problem Status W/U Status Risk Notes Problem [id number] Colon cancer screening (Z12.11) Active confirmed Problem [id number] molecular biology scientist current use of insulin (Z79.4) Active confirmed Plan Of Treatment Future Test Test Name Order Date COLONOSCOPY 11/26/2015 Insurance Providers Payer Name Payer Address Payer Phone Subscriber Number Group Number Insured Name Patient Relationship to Insured Coverage Start Date Coverage End Date MEDICARE OF [place] [address] [place] [id number] KOJO GALDAMEZ Self - patient is the insured MEDICAID OF [facility] [address] [place] [phone] [id number] KOJO GALDAMEZ Self - patient is the insured Medical (General) History Medical History History ICD Code colonoscopy 12-04-2004 colon polyp hypertension elevated cholesterol coronary disease with PA and angioplasty diabetes mellitus Denies CVA,Lung disease,renal disease Surgical History Surgery Date(Month/Year) angioplasty
== END 2025-04-17 14:38 | disposition home or self-care (01) ==
LOC: HO.US 14:37
PROVIDERS: Visit Provider Surgery Vascular Surgery
DX: I73.9 Peripheral vascular disease, unspecified (principal)
CPT/HCPCS: 93925

== ENCOUNTER → 2025-04-17 14:39 | Outpatient (BNV) | payer OTHER, SELFPAY | PROVIDERS: Visit Provider Radiology Diagnostic Radiology | DX: I73.9 Peripheral vascular disease, unspecified (principal) | CPT/HCPCS: 93925 ==

== ENCOUNTER 2025-04-29 08:08 | Outpatient (AMB) | payer OTHER, SELFPAY ==
--- OUTSIDE RECORDS SUMMARY | 2025-04-29 08:15 | XMS_ITS | Patient Health Record ---
Author Organization [facility] Address [address] [place] [address] Care Team Providers Care Microwave Radio Technician Name Role Phone Vadim Terrell MD Primary Care Provider Richie Barnett Jr Unavailable Allergies Allergen (clinical drug ingredient) Drug/Non Drug Allergy documented on EMR Reaction Allergy Type Onset Date Status Lisinopril Unknown Drug Allergy Active Reason For Referral No Information Medications Medication [...] Problem Status W/U Status Risk Notes Problem [id number] Colon cancer screening (Z12.11) Active confirmed Problem [id number] senior care current use of insulin (Z79.4) Active confirmed Plan Of Treatment Future Test Test Name Order Date COLONOSCOPY 11/26/2015 Insurance Providers Payer Name Payer Address Payer Phone Subscriber Number Group Number Insured Name Patient Relationship to Insured Coverage Start Date Coverage End Date [place] OF [place] [address] [place] [id number] KOJO GALDAMEZ Self - patient is the insured [facility] [address] [place] [phone] [id number] KOJO GALDAMEZ Self - patient is the insured Medical (General) History Medical History History ICD Code colonoscopy 12-04-2004 colon polyp hypertension elevated cholesterol coronary disease with [place] and angioplasty diabetes mellitus Denies CVA,Lung disease,renal disease Surgical History Surgery Date(Month/Year) angioplasty
--- OUTSIDE RECORDS SUMMARY | 2025-04-29 08:15 | XMS_ITS | Clinical Summary ---
Author Organization [facility] Address [address] [place] [address] [place] [address] Phone Care Team Providers Care Knitter Mechanic Name Role Phone Rose Mary Jones MD Primary Care Provider [phone] Allergies No known active allergies Medications albuterol [...] Cancer Screening: Sigmoidoscopy 1999 Influenza Vaccine (#1) 2025 Hepatitis B Vaccine Aged Out No longe r eligible based on patient's age to complete this topic Insurance [facility] ([id number]) [facility] ([id number]) Care Teams Knitter Mechanic Relationship Specialty Start Date End Date Rose Mary Jones MD [address] [place] PCP - General 11/03/20
--- NOTE | 2025-04-29 08:16 | A.OFFPC_ITS ---
Vital Signs 04/29/25 08:18 Height 5 ft 5 in Weight 156 lb BMI 26.0 BP 132/70 Blood Pressure Location Lt brachial Position Sitting Intake Visit Reasons: annual exam - see comments Intake Note: Patient here for an annual physical exam Advance Scout Required: No Accompanied by: Self / Same As Patient Allergies gabapentin Allergy (Mild, Verified 04/29/25 08:37) Itching Medication List - Last Reconciled 04/29/25 by Rose Mary Mcneill MD acetaminophen (Tylenol Extra Strength) 500 mg PO Q6H PRN albuterol sulfate 2.5 mg (3 mL) inhalation Q4-6H PRN amlodipine 10 mg PO DAILY atorvastatin 40 mg PO DAILY 90 days blood sugar diagnostic ([employer] Verio test strips) test twice per day blood-glucose meter ([employer] Verio Flex Start kit) test twice per day blood-glucose sensor (RafterStyle Jarrod 3 Sensor device) Apply every 14 days As directed to monitor blood glucose blood-glucose,information assurance,cont (FreeStyle Jarrod 3 Nicholson) Use daily As directed to monitor blood glucose cholecalciferol (vitamin D3) 25 mcg PO DAILY 90 days empagliflozin (Jardiance) 25 mg PO DAILY 90 days fluticasone propionate 110 mcg/actuation (Flovent HFA) 1 puff PO BID 30 days gabapentin 100 mg PO BEDTIME 90 days glucose (Dex4 Glucose) 16 grams (4 x 4 gram) PO Q15M PRN insulin degludec (Tresiba FlexTouch U-200 insulin) 30 units (0.15 mL) subcut DAILY insulin lispro (Humalog KwikPen (U-100) Insulin) 6 units (0.06 mL) subcut TID lancets test twice per day losartan 100 mg PO DAILY 90 days metformin 500 mg PO BID 90 days metoprolol succinate ER 100 mg PO DAILY nebulizers As directed pen needle, diabetic (1st Tier Unifine Pentips) Use 1 pen needle once a da semaglutide (Ozempic) 1 mg (0.75 mL) subcut QWEEK Ventolin HFA 90 mcg/actuation (albuterol sulfate) 2 puffs inhalation Q6H PRN 30 days NS Tobacco use date assessed: 02/21/25 Fall risk assessment: No Falls in past year Last assessed Fall Risk: 04/29/25 Dental Screening Dental Screen Date: 02/21/25 HPI HPI Comments History of Present Illness0 Details The patient is a 75-year-old male presenting for an annual physical examination and management of chronic conditions. The patient has a history of Type 2 Diabetes Mellitus, with the last HbA1c recorded at 7.3% in January, indicating suboptimal glycemic control. He is currently on metformin and Jardiance for diabetes management. Hypertension is well-controlled with amlodipine and losartan, and hyperlipidemia is managed with atorvastatin. The patient is also on metoprolol for cardiovascular protection. The patient has peripheral vascular disease and is under the care of a vascular surgeon, with a follow-up appointment scheduled. He has a history of moderate asthma, which was diagnosed following a hospitalization for pneumonia in 2021. Pulmonology follow-up was conducted in 2022, and a chest CT was repeated to monitor a pulmonary nodule. The patient has chronic kidney disease, with the last GFR recorded above 60 in December, indicating stable renal function. Anemia has been noted, and further laboratory workup is planned. The patient has a history of MRSA and bacteremia, which were treated during a previous hospitalization. He has allergies to gabapentin and tedapicor. Preventative care measures include up-to-date vaccinations and a colonoscopy performed in 2022, which was normal. 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 Son No problems noted. Son No problems noted. Son No problems noted. Social History Household Members: Spouse Housing: Apartment Are you a primary career discovery teacher to a significant other at home: No Do you presently have visiting nurse or other home services: Yes Alcohol intake: former Patient Tobacco Use Status: Former Tobacco user Tobacco use type: Cigarette e-Cigarette/Vaping Use: Never Used Second Hand Smoke Exposure: No Advance Directives Date on File: 07/30/20 service: No Current occupational status: retired Cognitive needs: No Hearing needs: No Vision needs: Yes (Glasses) Questionnaire PHQ-9 Over the last 2 weeks, how often have you been bothered by any of the following problems? 1. Little interest or pleasure in doing things: not at all 2. Feeling down, depressed, or hopeless: not at all 3. Trouble falling or staying asleep, or sleeping too much: not at all 4. Feeling tired or having little energy: not at all 5. Poor appetite or overeating: not at all 6. Feeling bad about yourself - or that you are a failure or have let yourself or your family down: not at all 7. Trouble concentrating on things, such as reading the newspaper or watching television: not at all 8. Moving or speaking so slowly that other people could have noticed. Or the opposite - being so fidgety or restless that you have been moving around a lot more than usual: not at all 9. Thoughts that you would be better off or of hurting yourself in some way: not at all Total score: 0 Depression Screening Interpretation: Negative Depression Screening Done: Yes 79065 - PHQ-9 Billing: Yes Source: Developed by Drs. Jose Mandujano, Yamel Weaver, Adrian Dee and colleagues, with an educational barry from [employer]. Thrive Questionnaire Date Thrive assessed: 04/29/25 I am a: Patient What is your living situation today?: I have a steady place to live Within the past 12 months, did the food you bought not last and you didn't have the money to get more?: Never true Within the past 12 months, did you worry whether your food would run out before you got money to buy more?: Never true Do you have trouble paying for medicines?: No Do you have trouble getting transportation to medical appointments?: No Do you have trouble paying your heating and electricity bill?: No Do you have trouble taking care of your child, family member or friend?: No Do you have trouble with day-to-day activities such as bathing, preparing meals, shopping, managing finances, etc.?: No Are you currently unemployed and looking for a job?: No Are you interested in more education?: No Please select the resources that you would like help with: None Currently or been in a relationship where the following occur: No concerns reported THRIVE Score: 0 AUDIT C Alcohol Use Questionnaire (AUDIT-C) 1. How often do you have a drink containing alcohol?: Never Total Score: 0 Score Reviewed/Action Taken: No DAX-7 AMB Questionnaire DAX-7 Date DAX - 7 assessed: 04/29/25 Feeling nervous, anxious, or on edge: 0 = Not at all Not being able to stop or control worryin = Not at all Worrying too much about different things: 0 = Not at all Trouble relaxin = Not at all Being so restless that it is hard to sit still: 0 = Not at all Becoming easily annoyed or irritable: 0 = Not at all Feeling afraid as if something awful might happen: 0 = Not at all Total DAX-7 score (0-4 normal; 5-9 mild; 10-14 moderate; 15-21 severe): 0 Source: Developed by Drs. Jose Mandujano, Yamel Weaver, Adrian Dee and colleagues, with an educational barry from [employer]. DAX-7 Assessment Billing DAX-7 Assessment Tool: DAX-7 Assessment 93623 Review of Systems Const All systems reviewed & are unremarkable except as noted in HPI and below Card Denies chest pain at rest, Denies chest pain with activity, Denies edema, Denies irregular heart rhythm, Denies claudication, Denies dyspnea, Denies dyspnea on exertion, Denies orthopnea, Denies paroxysmal nocturnal dyspnea and Denies slow heart rate Resp Denies cough, Denies dyspnea and Denies dyspnea on exertion GI Denies abdominal pain, Denies change in bowel habits, Denies excessive flatus, Denies nausea and Denies vomiting Denies urinary hesitancy, Denies urinary incontinence and Denies urinary urgency Musc Denies abnormal gait, Denies atrophy, Denies deformity and Denies limited range of motion Skin/Breast Denies bleeding lesions, Denies changing lesions and Denies rash Neuro Denies abnormal gait and Denies lack of coordination Physical exam (Primary Care) Vital Signs: Last Vital Signs BP 132/70 04/29/25 08:18 BMI result Body Mass Index 26.0 Tobacco/Smoking Status: Tobacco use Status Tobacco use date assessed 02/21/25 04/29/25 08:21 Patient Tobacco Use Status Former Tobacco user 04/29/25 08:21 Tobacco use type Cigarette 04/29/25 08:21 e-Cigarette/Vaping Use Never Used 04/29/25 08:21 PHQ-9: PHQ-9 Score PHQ-9: Total score 0 04/29/25 08:21 Depression Screening Interpretation: Negative Thrive Assessment: Date of Thrive Assessment Date Thrive assessed 04/29/25 04/29/25 08:21 Currently or been in a relationship where the following occur: No concerns reported HENMT Head: Yes normal to inspection, Yes normocephalic and Yes atraumatic Ears: external ears normal Eyes General: appearance normal, both eyes and all related structures Eyelids: Yes eyelids normal Conjunctivae: conjunctivae normal Neck Neck: Yes normal visual inspection and Yes supple Resp Effort & Inspection: normal respiratory effort Auscultation: clear to auscultation bilaterally Cardio Jugular venous distension: no JVD Rate: regular rate Rhythm: regular rhythm Heart sounds: S1 normal heart sound present and S2 normal heart sound present GI Inspection: Yes normal to inspection Palpation (GI): Soft to palpation and nontender Auscultation: normal bowel sounds Skin General skin exam: no rashes or lesions noted Neuro General: no focal motor deficits Extrem General: Yes full ROM Psych Appearance: grossly normal Coding Level of Care Code Est Pt Prev Care >65y(61171) Diagnoses Physical exam Z00.00 Uncontrolled type 2 diabetes mellitus with hyperglycemia, with long-term current use of insulin E11.65; Z79.4 PAD (peripheral artery disease) I73.9 Additional Codes PHQ-9 - 55444 - PHQ-9 Billing: Yes ([id number]) DAX-7 Assessment Billing - DAX-7 Assessment Tool: DAX-7 Assessment 99313 ([id number]) Time Spent (min) 33 Assessment & Plan Assessment & Plan (1) Physical exam: Code(s): Z00.00 - Encounter for general adult medical examination without abnormal findings Category: Medical (2) Uncontrolled type 2 diabetes mellitus with hyperglycemia, with long-term current use of insulin: Code(s): E11.65 - Type 2 diabetes mellitus with hyperglycemia; Z79.4 - FDC (current) use of insulin Category: Medical (3) PAD (peripheral artery disease): Code(s): I73.9 - Peripheral vascular disease, unspecified Category: Medical Plan The patient will continue with current medications for diabetes, hypertension, and hyperlipidemia, with a follow-up HbA1c planned to monitor glycemic control. A follow-up appointment with the vascular surgeon is scheduled to manage peripheral vascular disease. Pulmonology will continue to monitor the pulmonary nodule with periodic imaging as needed. Further laboratory workup will be conducted to assess anemia and renal function, with a focus on maintaining stable kidney function. Preventative care measures, including vaccinations and routine screenings, will be maintained as per guidelines. Patient was informed and verbally consented to the use of an ambient scribe for clinic note documentation during this visit. I discussed with the patient the importance of maintaining current medication regimens for diabetes, hypertension, and hyperlipidemia. We reviewed the need for follow-up with the vascular surgeon and pulmonology to monitor peripheral vascular disease and the pulmonary nodule, respectively. I emphasized the importance of regular laboratory workups to monitor anemia and kidney function, and the continuation of preventative care measures such as vaccinations and screenings. Orders: Orders Complete Blood Count Auto Diff 4 Months D64.9 - Anemia, unspecified Lipid Panel 4 Months E78.5 - Hyperlipidemia, unspecified Calcium, Random Urine 4 Months E21.3 - Hyperparathyroidism, unspecified IRON PROFILE 4 Months D64.9 - Anemia, unspecified Microalbumin, Random (w Creat) 4 Months R80.9 - Proteinuria, unspecified Vitamin D 25-OH Total 4 Months E55.9 - Vitamin D deficiency, unspecified Comprehensive [place]. Panel Fast 4 Months E11.65 - Type 2 diabetes mellitus with hyperglycemia, Z79.4 - manager long term care (current) use of insulin Calcium, Ionized 4 Months E21.3 - Hyperparathyroidism, unspecified Phosphorus 4 Months E21.3 - Hyperparathyroidism, unspecified Parathyroid Hormone Intact 4 Months E21.3 - Hyperparathyroidism, unspecified Patient Instructions: - Continue taking all prescribed medications as directed. - Attend follow-up appointments with the vascular surgeon and hand flesher. - Complete scheduled laboratory tests to monitor anemia and kidney function. - Stay up to date with vaccinations and routine screenings.
[2025-04-29 08:18] VITALS: BP 132/70; BMI 26.0
== END 2025-04-29 08:51 | disposition home or self-care (01) ==
LOC: HO.HMCH 08:09
PROVIDERS: PCP Internal Medicine; Visit Provider Internal Medicine
DX: Z00.00 Encounter for general adult medical examination without abnormal findings (principal); E11.65 Type 2 diabetes mellitus with hyperglycemia; Z79.4 Long term (current) use of insulin; I73.9 Peripheral vascular disease, unspecified

== ENCOUNTER → 2025-04-29 08:08 | Outpatient (BNVA) | payer OTHER, SELFPAY | PROVIDERS: PCP Internal Medicine; Visit Provider Internal Medicine | DX: Z00.00 Encounter for general adult medical examination without abnormal findings (principal); E11.65 Type 2 diabetes mellitus with hyperglycemia; I73.9 Peripheral vascular disease, unspecified; Z79.4 Long term (current) use of insulin | CPT/HCPCS: 96127; 99397 ==

== ENCOUNTER 2025-05-02 13:43 | Outpatient (AMB) | payer OTHER, SELFPAY ==
--- NOTE | 2025-05-02 13:47 | MHC.OFFVIS ---
Intake Visit Reasons: follow up s/p Arterial US 04/17/25 Intake Note: Patient presents for arterial us follow up. Patient states he has bilateral leg pain but the left leg is worse. Accompanied by: Self / Same As Patient Allergies gabapentin Allergy (Mild, Verified 05/02/25 13:50) Itching HPI HPI follow up s/p Arterial US 04/17/25: Details: The patient is a 75-year-old male presenting for arterial follow-up. The patient reports persistent pain in the left calf, this typically occurs after about a block of ambulation. Patient leads mostly a sedentary life and is not very active. He now presents for follow-up with ultrasound surveillance. 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 Son No problems noted. Son No problems noted. Son No problems noted. Social History Household Members: Spouse Housing: Apartment Are you a primary hospice spiritual care coordinator to a significant other at home: No Do you presently have visiting nurse or other home services: Yes Alcohol intake: former Patient Tobacco Use Status: Former Tobacco user Tobacco use type: Cigarette e-Cigarette/Vaping Use: Never Used Second Hand Smoke Exposure: No Advance Directives Date on File: 07/30/20 service: No Current occupational status: retired Cognitive needs: No Hearing needs: No Vision needs: Yes (Glasses) Review of Systems Const All systems reviewed & are unremarkable except as noted in HPI and below Reports no additional complaints ENT Reports Normal hearing present Card Denies chest pain, Denies chest pain at rest, Denies chest pain with activity and Denies pedal edema Resp Denies cough GI Denies abdominal pain Musc Denies abnormal gait, Denies muscle cramps and Denies radiating pain into limb Skin/Breast Denies skin ulcer and Denies wounds Neuro Reports Normal hearing present and Denies abnormal gait Psych Reports no additional complaints Physical Exam Const General: cooperative, healthy appearing and comfortable Orientation/consciousness: oriented to person, oriented to place and oriented to time HEENT Head: Yes normal to inspection Neck Neck: Yes normal visual inspection Carotids: no bruits Chest Chest palpation & inspection: normal inspection of the chest Resp Effort & Inspection: normal respiratory effort and able to speak in complete sentences Auscultation: clear to auscultation bilaterally, no crackles, no rales, no rhonchi and no wheezes Cardio Other: Bilateral DP signals Rate: regular rate Rhythm: regular rhythm Heart sounds: S1 normal heart sound present and S2 normal heart sound present Bruits: no carotid bruits GI Inspection: Yes normal to inspection Skin Wounds: no wounds Hair: normal Neuro General: oriented to person, oriented to place and oriented to time Cranial nerves: Yes CN's II-XII intact bilaterally and Yes Normal hearing present Cognition (Neuro): normal cognition Motor exam (neuro): 5/5 motor strength present throughout Extrem Other: venous exam: No significant superficial varicosities or spider telangiectasias, minimal edema General: No clubbing, No cyanosis and No edema Psych Appearance: grossly normal Mental Status: mental status grossly normal Speech and movement: Normal speech and movement present Results Reviewed Results Reviewed: Noninvasive arterial testing dated 04/17/2025 demonstrates normal flow down the right lower extremity left lower extremity appears to have monophasic flow in the tibial vessels. Excellent waveforms. Assessment & Plan Assessment & Plan (1) PAD (peripheral artery disease): Code(s): I73.9 - Peripheral vascular disease, unspecified Category: Medical Plan: In short patient has stable claudication. I did review the pathophysiology of peripheral vascular disease with the patient. In addition we did discuss routine conservative measures including a healthy diet and the importance of exercise and ambulation. We did discuss risk factor modification. The patient will continue to to follow-up with surveillance follow-up in approximately 6 months. Thank you for allowing us to participate in this patient's care. If there are any questions or concerns please do not hesitate to contact us. Orders: Orders US arterial duplex LE BI 6 Months I73.9 - Peripheral vascular disease, unspecified Coding Level of Care Code Est Pt Level 4 (52636) Diagnoses PAD (peripheral artery disease) I73.9
--- OUTSIDE RECORDS SUMMARY | 2025-05-02 13:47 | XMS_ITS | Clinical Summary ---
Author Organization [facility] Address [address] [place] [address] Phone Care Team Providers Care Judicial Reporter Name Role Phone Rose Mary Jones MD Primary Care Provider [phone] Allergies No known active allergies Medications albuterol [...] patient's age to complete this topic Insurance [facility] ([id number]) [facility] ([id number]) Care Teams Judicial Reporter Relationship Specialty Start Date End Date Rose Mary Jones MD [address] [place] PCP - General 11/03/20
--- OUTSIDE RECORDS SUMMARY | 2025-05-02 13:47 | XMS_ITS | Patient Health Record ---
Author Organization [facility] Address [address] [place] [address] Care Team Providers Care Continuous Improvement Consultant Name Role Phone Vadim Terrell MD Primary [...] Problem Status W/U Status Risk Notes Problem [id number] Colon cancer screening (Z12.11) Active confirmed Problem [id number] [facility] current use of insulin (Z79.4) Active confirmed Plan Of Treatment Future Test Test Name Order Date COLONOSCOPY 11/26/2015 Insurance Providers Payer Name Payer Address Payer Phone Subscriber Number Group Number Insured Name Patient Relationship to Insured Coverage Start Date Coverage End Date [place] [address] [place] [id number] KOJO GALDAMEZ Self - patient is the insured [facility] [address] [place] [phone] [id number] KOJO GALDAMEZ Self - patient is the insured Medical (General) History Medical History History ICD Code colonoscopy 12-04-2004 colon polyp hypertension elevated cholesterol coronary disease with [place] and angioplasty diabetes mellitus Denies CVA,Lung disease,renal disease Surgical History Surgery Date(Month/Year) angioplasty
== END 2025-05-02 14:13 | disposition home or self-care (01) ==
LOC: HO.HVS 13:44
PROVIDERS: Visit Provider Surgery Vascular Surgery
DX: I73.9 Peripheral vascular disease, unspecified (principal)
CPT/HCPCS: 99214

== ENCOUNTER → 2025-05-02 13:43 | Outpatient (BNVA) | payer OTHER, SELFPAY | PROVIDERS: Visit Provider Surgery Vascular Surgery | DX: I73.9 Peripheral vascular disease, unspecified (principal) | CPT/HCPCS: 99212 ==

== ENCOUNTER 2025-05-20 09:39 | Outpatient (AMB) | payer OTHER, SELFPAY ==
[2025-05-20 09:47] VITALS: BP 126/68; PULSE 73; O2SAT 97; BMI 26.4
--- NOTE | 2025-05-20 09:47 | A.OFFVIS_ITS ---
Vital Signs 05/20/25 09:47 Height 5 ft 5 in Weight 158 lb 11.725 oz BMI 26.4 BP 126/68 Blood Pressure Location Rt brachial Position Sitting Pulse 73 Pulse Source Pulse Oximeter Pulse Oximetry (%) 97 Oxygen Delivery Method Room Air Intake Visit Reasons: DM Intake Note: Patient present today for Type 2 Diabetes Mellitus Last Diabetic eye exam: 08/2024 Last Podiatry Visit: Patient does not see a Core Machine Operator, needs a referral Random Glucose: 165 mg/dl HgA1C: 6.9%, 05/20/2025 Bow Tacker Required: Yes Bow Tacker Services: Bow Tacker Offered & Declined Accompanied by: Self / Same As Patient Allergies gabapentin Allergy (Mild, Verified 05/02/25 13:50) Itching Medication List - Last Reconciled 05/20/25 by Vita Guido PA-C acetaminophen (Tylenol Extra Strength) 500 mg PO Q6H PRN albuterol sulfate 2.5 mg (3 mL) inhalation Q4-6H PRN amlodipine 10 mg PO DAILY atorvastatin 40 mg PO DAILY 90 days blood sugar diagnostic (FieldSolutionsTouch Verio test strips) test twice per day blood-glucose meter (OneTouch Verio Flex Start kit) test twice per day blood-glucose sensor (FreeStyle Jarrod 3 Sensor device) Apply every 14 days As directed to monitor blood glucose blood-glucose,corporation pilot,cont (FreeStyle Jarrod 3 [place]) Use daily As directed to monitor blood glucose cholecalciferol (vitamin D3) 25 mcg PO DAILY 90 days empagliflozin (Jardiance) 25 mg PO DAILY 90 days fluticasone propionate 110 mcg/actuation (Flovent HFA) 1 puff PO BID 30 days gabapentin 100 mg PO BEDTIME 90 days glucose (Dex4 Glucose) 16 grams (4 x 4 gram) PO Q15M PRN insulin degludec (Tresiba FlexTouch U-200 insulin) 20 units subcut DAILY insulin lispro (Humalog KwikPen (U-100) Insulin) 6 units (0.06 mL) subcut TID lancets test twice per day losartan 100 mg PO DAILY 90 days metformin 500 mg PO BID 90 days metoprolol succinate ER 100 mg PO DAILY nebulizers As directed pen needle, diabetic (1st Tier Unifine Pentips) Use 1 pen needle once a da semaglutide (Ozempic) 1 mg (0.75 mL) subcut QWEEK Ventolin HFA 90 mcg/actuation (albuterol sulfate) 2 puffs inhalation Q6H PRN 30 days NS HPI HPI DM: Details: Patient is a 74-year-old male with a significant past medical history of CAD, hypertension, hyperlipidemia, chronic kidney disease, secondary hyperparathyroidism, anemia of chronic disease and diabetes presenting today for a follow-up regarding diabetes. 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 No nausea or vomiting. He has noticed some appetite suppression with the ozempic. He has noticed that his blood sugars have been much better. Prior medications: Trulicity cause nausea, metformin at higher doses causes GI upset, trialed Lantus but wore off, Petros had similar effects of wearing off CGM-usage 96%, average glucose 153, GMI 7%. hyperglycemic 28 %, in range 72%. 0% hypoglycemia. -he does report rare hypoglycemic events but states that this is mostly at night and related to lying on his sensor. He states that he will check the sugar and it looks like it is overall normal but around 75. He is asymptomatic with this. Sometimes he treats it and sometimes he does not. Followed for diabetic Education and found this very helpful. Nephro: He is following closely with Nephrology given his kidney disease and intermittent AKIs. CV: Blood pressure today in the office is 112/64. He is currently on metoprolol 100 mg, losartan 100 mg. Cholesterol is controlled with atorvastatin 40 mg. Vascular: Up-to-date and does have PAD and this is being monitored every 6 months. No sores or changes in his symptoms of claudication. 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 Son No problems noted. Son No problems noted. Son No problems noted. Social History Household Members: Spouse Housing: Apartment Are you a primary manager primary care to a significant other at home: No Do you presently have visiting nurse or other home services: Yes Alcohol intake: former Patient Tobacco Use Status: Former Tobacco user Tobacco use type: Cigarette e-Cigarette/Vaping Use: Never Used Second Hand Smoke Exposure: No Advance Directives Date on File: 07/30/20 service: No Current occupational status: retired Cognitive needs: No Hearing needs: No Vision needs: Yes (Glasses) Physical Exam Vital Signs: Last Vital Signs Pulse 73 05/20/25 09:47 BP 126/68 05/20/25 09:47 Pulse Ox 97 05/20/25 09:47 Oxygen Delivery Method Room Air 05/20/25 09:47 BMI result Body Mass Index 26.4 Const Orientation/consciousness: patient oriented x3 Neck Neck: Yes no lymphadenopathy Thyroid: Thyroid normal Carotids: no bruits Resp Auscultation: clear to auscultation bilaterally Cardio Rate: regular rate Rhythm: regular rhythm Heart sounds: S1 normal heart sound present and S2 normal heart sound present Peripheral pulses: dorsalis pedis present Neuro General: patient oriented x3, gait normal and no focal motor deficits Extrem Other: The left great toenail is thickened and yellowish. Skin intact. General: Yes normal to inspection Results AMB Hemoglobin A1c AMB Hemoglobin A1c 6.9 % Last Edit by LAZARO Lorenz on 05/20/25 10:03 Results Reviewed Results Reviewed: Laboratory Last Values Glucose (Clinic) 165 mg/dL (60-115) H 05/20/25 09:53 Laboratory Tests 01/07/25 02/18/25 05/20/25 07:02 10:35 09:53 Creatinine 1.17 Estimated GFR > 60 Glucose (Clinic) 165 H Hemoglobin A1c % 7.3 H AST 23 ALT 22 Assessment & Plan Assessment & Plan (1) Uncontrolled type 2 diabetes mellitus with hyperglycemia, with long-term current use of insulin: Code(s): E11.65 - Type 2 diabetes mellitus with hyperglycemia; Z79.4 - prison (current) use of insulin Category: Medical Plan: Increase Ozempic to 2 mg weekly Continue Jardiance 25 mg daily Continue metformin 500 mg twice a day Reduce Tresiba to 10 units daily Reduce Humalog to 4 units 3 times a day (2) Essential hypertension: Code(s): I10 - Essential (primary) hypertension Category: Medical Plan: WNL. Continue current regimen (3) PAD (peripheral artery disease): Code(s): I73.9 - Peripheral vascular disease, unspecified Category: Medical Plan: Leg pain stable. Following with vascular surgery and has repeat ultrasound scheduled in 6 months (4) Onychomycosis: Code(s): B35.1 - Tinea unguium Category: Medical Plan: We will start on Penlac solution. I have referred him to Podiatry. Orders: Orders AMB Hemoglobin A1c Today E11.65 - Type 2 diabetes mellitus with hyperglycemia, Z79.4 - ocean transportation intermediary (current) use of insulin Referrals Podiatry Referral B35.1 - Tinea unguium, E11.65 - Type 2 diabetes mellitus with hyperglycemia, I10 - Essential (primary) hypertension, I73.9 - Peripheral vascular disease, unspecified, Z79.4 - ocean transportation intermediary (current) use of insulin Medications: New semaglutide (Ozempic) 2 mg (0.75 mL) subcut QWEEK 3 mL 4RF insulin degludec (Tresiba FlexTouch U-200 insulin) 10 units (0.05 mL) subcut DAILY 9 mL 2RF ciclopirox 8% 1 appl topical BEDTIME 6.6 mL 2RF 30 days Changed From insulin lispro (Humalog KwikPen (U-100) Insulin) with breakfast, lunch and supper 6 units (0.06 mL) subcut TID 15 mL 2RF To insulin lispro (Humalog KwikPen (U-100) Insulin) with breakfast, lunch and supper 4 units (0.04 mL) subcut TID 15 mL 2RF Discontinued semaglutide (Ozempic) Discontinued Reason: Doctor's Order 1 mg (0.75 mL) subcut QWEEK 3 mL 5RF Coding Level of Care Code Est Pt Level 4 (14417) Complex EM visit Add On G2211 Diagnoses Uncontrolled type 2 diabetes mellitus with hyperglycemia, with long-term current use of insulin E11.65; Z79.4 Essential hypertension I10 PAD (peripheral artery disease) I73.9 Onychomycosis B35.1
[2025-05-20 09:57] LABS: Glucose, Whole Blood 165 mg/dL (60-115)
--- OUTSIDE RECORDS SUMMARY | 2025-05-20 10:33 | XMS_ITS | Clinical Summary ---
Author Organization [facility] Address [address] [place] [address] [place] [address] Phone Care Team Providers Care Rack Room Worker Name Role Phone Rose Mary Jones MD Primary Care Provider [phone] Allergies No known active allergies Medications albuterol [...] this topic Insurance [facility] ([id number]) [facility] ([id number]) Care Teams Rack Room Worker Relationship Specialty Start Date End Date Rose Mary Jones MD [address] [place] PCP - General 11/03/20
--- OUTSIDE RECORDS SUMMARY | 2025-05-20 10:33 | XMS_ITS | Patient Health Record ---
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 (Z79.4) Active confirmed Plan Of Treatment Future Test Test Name Order Date COLONOSCOPY 11/26/2015 Insurance Providers Payer Name Payer Address Payer Phone Subscriber Number Group Number Insured Name Patient Relationship to Insured Coverage Start Date Coverage End Date [place]ARE OF [place] [address] [place] [phone] [id number] KOJO GALDAMEZ Self - patient is the insured [facility]ID [facility] [address] [place] [phone] [id number] KOJO GALDAMEZ Self - patient is the insured Medical (General) History Medical History History ICD Code colonoscopy 12-04-2004 colon polyp hypertension elevated cholesterol coronary disease with [place] and angioplasty diabetes mellitus Denies CVA,Lung disease,renal disease Surgical History Surgery Date(Month/Year) angioplasty
== END 2025-05-20 10:13 | disposition home or self-care (01) ==
LOC: HO.ENCR 09:41
PROVIDERS: PCP Internal Medicine; Visit Provider Physician Assistant
DX: E11.65 Type 2 diabetes mellitus with hyperglycemia (principal); Z79.4 Long term (current) use of insulin; I10 Essential (primary) hypertension; I73.9 Peripheral vascular disease, unspecified; B35.1 Tinea unguium

== ENCOUNTER → 2025-05-20 09:39 | Outpatient (BNVA) | payer OTHER, SELFPAY | PROVIDERS: PCP Internal Medicine; Visit Provider Physician Assistant | DX: E11.65 Type 2 diabetes mellitus with hyperglycemia (principal); I10 Essential (primary) hypertension; I73.9 Peripheral vascular disease, unspecified; B35.1 Tinea unguium; Z79.4 Long term (current) use of insulin | CPT/HCPCS: 82947; 83036; 99212 ==

== ENCOUNTER 2025-06-28 15:03 | Outpatient (AMB) | payer OTHER, SELFPAY ==
--- OUTSIDE RECORDS SUMMARY | 2025-06-28 15:05 | XMS_ITS | Patient Health Record ---
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 insulin (Z79.4) Active confirmed Plan Of Treatment Future Test Test Name Order Date COLONOSCOPY 11/26/2015 Insurance Providers Payer Name Payer Address Payer Phone Subscriber Number Group Number Insured Name Patient Relationship to Insured Coverage Start Date Coverage End Date [place] OF [place] [address] [place] [phone] [id number] KOJO GALDAMEZ Self - patient is the insured [facility] [address] [place] [phone] [id number] KOJO GALDAMEZ Self - patient is the insured Medical (General) History Medical History History ICD Code colonoscopy 12-04-2004 colon polyp hypertension elevated cholesterol coronary disease with [place] and angioplasty diabetes mellitus Denies CVA,Lung disease,renal disease Surgical History Surgery Date(Month/Year) angioplasty
--- OUTSIDE RECORDS SUMMARY | 2025-06-28 15:06 | XMS_ITS | Clinical Summary ---
Author Organization [facility] Address [address] [place] [address] [place] [address] Phone Care Team Providers Care Rock Crusher Name Role Phone Rose Mary Jones MD Primary Care Provider [phone] Allergies No known active allergies Medications albuterol [...] this topic Insurance [facility] ([id number]) [facility] ([id number]) Care Teams Rock Crusher Relationship Specialty Start Date End Date Rose Mary Jones MD [address] [place] PCP - General 11/03/20
[2025-06-28 15:43] VITALS: BP 120/60; PULSE 75; BMI 25.3
--- NOTE | 2025-06-28 15:43 | A.OFFVIS_ITS ---
Vital Signs 06/28/25 15:43 Height 5 ft 5 in Weight 152 lb 1.903 oz BMI 25.3 BP 120/60 Blood Pressure Location Lt brachial Position Sitting Pulse 75 Pulse Source Monitor Intake Visit Reasons: STEMI/DC 06/12 Java Swing Developer Required: Yes Java Swing Developer Services: Java Swing Developer Offered & Declined Accompanied by: Son Allergies gabapentin Allergy (Mild, Verified 05/02/25 13:50) Itching Medication List - Last Reconciled 06/28/25 by Ash Chavarria NP acetaminophen (Tylenol Extra Strength) 500 mg PO Q6H PRN albuterol sulfate 2.5 mg (3 mL) inhalation Q4-6H PRN amlodipine 5 mg PO DAILY aspirin mg PO atorvastatin 40 mg PO DAILY 90 days blood sugar diagnostic (AudioSnapsuch Verio test strips) test twice per day blood-glucose meter ([employer] Verio Flex Start kit) test twice per day blood-glucose sensor (MyColorScreenStyle Jarrod 3 Sensor device) Apply every 14 days As directed to monitor blood glucose blood-glucose,director community health nursing,cont (FreeStyle Jarrod 3 [place]) Use daily As directed to monitor blood glucose cholecalciferol (vitamin D3) 25 mcg PO DAILY 90 days ciclopirox 8% 1 appl topical BEDTIME 30 days clopidogrel 75 mg PO DAILY colchicine 0.6 mg PO BID empagliflozin (Jardiance) 25 mg PO DAILY 90 days fluticasone propionate 110 mcg/actuation (Flovent HFA) 1 puff PO BID 30 days glucose (Dex4 Glucose) 16 grams (4 x 4 gram) PO Q15M PRN insulin degludec (Tresiba FlexTouch U-200 insulin) 10 units (0.05 mL) subcut DAILY insulin lispro (Humalog KwikPen (U-100) Insulin) 4 units (0.04 mL) subcut TID lancets test twice per day losartan 100 mg PO DAILY 90 days metformin 500 mg PO BID 90 days metoprolol succinate ER 200 mg PO DAILY nebulizers As directed pantoprazole 40 mg PO DAILY pen needle, diabetic (1st Tier Unifine Pentips) Use 1 pen needle once a da semaglutide (Ozempic) 2 mg (0.75 mL) subcut QWEEK Ventolin HFA 90 mcg/actuation (albuterol sulfate) 2 puffs inhalation Q6H PRN 30 days NS HPI Comments Details: This is a 75-year-old male patient coming in for a hospital discharge follow-up status post cardiac catheterization. Patient with a history of CAD status post STEMI in 1999 with PCI to LCX and was following [facility] at that time but since his green building materials designer left, patient has not seen anyone for over almost 20 years. Patient also with a significant history for hypertension, hyperlipidemia and diabetes who was recently at [facility] for constant pressure from his neck down to his chest with shortness of breath. Patient's EKG showed sinus tachycardia with a ST elevations in the inferior leads with Q-waves in lead 3 and AVF and reciprocal ST-depression in aVL. Patient was started on heparin infusion and underwent emergent cardiac catheterization with Dr. Valencia on 05/2025. Cardiac catheterization showed 95% stenosis of the mid RCA status post ROZ. Patient's hospitalization was later complicated by presence of pleuritic chest pain and friction rub diagnostic of post IA pericarditis and therefore was increased on his aspirin to 650 mg t.i.d.. Patient was also started on colchicine. Today, patient is reporting feeling well overall without any cardiac symptoms of exertional chest pain, shortness of breath, palpitations, dizziness, orthopnea, PND, leg edema, presyncope or syncope. Patient is reporting compliance with all his medications. [facility] Medical History Myocardial infarction Arthritis Pulmonary nodule Cavitary pneumonia MRSA bacteremia Hypovitaminosis D Former smoker Hyperparathyroidism Annual physical exam CAD (coronary artery disease) Former smoker Obese Microalbuminuria CKD (chronic kidney disease) stage 3, GFR 30-59 ml/min USP (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 Son No problems noted. Son No problems noted. Son No problems noted. Social History Household Members: Spouse Housing: Apartment Are you a primary lawn caretaker to a significant other at home: No Do you presently have visiting nurse or other home services: Yes Alcohol intake: former Patient Tobacco Use Status: Former Tobacco user Tobacco use type: Cigarette e-Cigarette/Vaping Use: Never Used Second Hand Smoke Exposure: No Advance Directives Date on File: 07/30/20 service: No Current occupational status: retired Cognitive needs: No Hearing needs: No Vision needs: Yes (Glasses) Review of Systems Const Denies weakness ENT Denies dizziness Card Denies chest pain, Denies chest pain with activity, Denies syncope, Denies rapid heart rate, Denies pedal edema, Denies edema, Denies leg edema, Denies lightheadedness, Denies palpitations, Denies dyspnea, Denies dyspnea on exertion and Denies orthopnea Resp Denies cough, Denies dyspnea and Denies dyspnea on exertion GI Denies hematochezia and Denies change in stool character Musc Denies abnormal gait, Denies muscle cramps, Denies muscle weakness, Denies numbness, Denies radiating pain into limb and Denies tingling Neuro Denies abnormal gait, Denies dizziness, Denies syncope, Denies numbness, Denies tingling and Denies weakness Endo Denies palpitations Physical Exam Vital Signs: Last Vital Signs Pulse 75 06/28/25 15:43 BP 120/60 06/28/25 15:43 BMI result Body Mass Index 25.3 Const General: cooperative, healthy appearing, comfortable and no acute distress Orientation/consciousness: patient oriented x3 HEENT Head: Yes normal to inspection Neck Neck: Yes normal visual inspection, Yes trachea midline and Yes supple Chest Chest palpation & inspection: normal inspection of the chest Resp Effort & Inspection: normal respiratory effort Auscultation: clear to auscultation bilaterally, no crackles, no rales, no rhonchi and no wheezes Cardio Jugular venous distension: no JVD Palpation: normal PMI Rate: regular rate Rhythm: regular rhythm Heart sounds: S1 normal heart sound present, S2 normal heart sound present, no click, no gallops, no murmurs and no rubs Peripheral pulses: Peripheral pulses 2+ throughout GI Inspection: Yes normal to inspection Palpation (GI): Soft to palpation Auscultation: normal bowel sounds Skin General skin exam: no rashes or lesions noted Neuro General: patient oriented x3 Extrem General: Yes normal to inspection, No no pedal edema and No calf tenderness Psych Appearance: grossly normal Mental Status: mental status grossly normal Speech and movement: Normal speech and movement present Office Procedures EKG Details: EKG today showed normal sinus rhythm, rate 75 beats per minute, ST-T wave abnormality in the inferior and lateral leads, Q-wave in inferior leads, [place], [place] [id number], Complete Assessment & Plan Assessment & Plan (1) CAD (coronary artery disease): Code(s): I25.10 - Atherosclerotic heart disease of circle coronary artery without angina pectoris Category: Medical Plan: 05/2025-patient had an echo at [facility] that showed normal LV systolic function with the ejection fraction at 58%, aortic sclerosis without stenosis and trileaflet aortic valve. 06/12/25-patient underwent cardiac catheterization with Dr. Valencia at [facility] that showed severe stenosis in the mid RCA status post PCI to the RCA, mild diffuse disease in the LAD, mild ISR in the circumflex stent, and moderate disease in the AV groove circumflex. Clinically stable and without any cardiac symptoms. Given his post IA pericarditis, continue aspirin therapy- patient completed his 650 mg t.i.d. and is now on 650 mg b.i.d. patient to continue with this for 14 days and plan for tapering it down to 650 daily for 14 days followed by 325 daily for 14 days and then continue with lifelong baby aspirin therapy. Continue with the colchicine b.i.d. for 3 months. We will repeat an echo before his next visit. Continue uninterrupted Plavix therapy for for at least 12 months. No reported signs of bleeding or falls. We will refer patient out to cardiac rehab. Right wrist catheterization site is well healed. Continue statin therapy with an LDL goal less than 70. Patient has upcoming labs for CBC, BMP, and lipid profile. We will monitor this periodically. (2) Coronary angioplasty status: Code(s): Z98.61 - Coronary angioplasty status Category: Surgical Plan: As above. (3) Pericarditis: Code(s): I31.9 - Disease of pericardium, unspecified Category: Medical Plan: As above. (4) Essential hypertension: Code(s): I10 - Essential (primary) hypertension Category: Medical Plan: Blood pressure today is well-controlled. Continue current regimen. Advised monitoring blood pressures at home with a goal less than 130/80. Advised to maintain a log of it to bring to his next office visit. (5) Uncontrolled type 2 diabetes mellitus with hyperglycemia, with long-term current use of insulin: Code(s): E11.65 - Type 2 diabetes mellitus with hyperglycemia; Z79.4 - USP (current) use of insulin Category: Medical Plan: Continue aggressive diabetes management with an A1c goal less than 7%. (6) Hospital discharge follow-up: Code(s): Z09 - Encounter for follow-up examination after completed treatment for conditions other than malignant neoplasm Category: Medical Plan: As above. Advised heart healthy diet, regular exercise, med compliance, emphasized on the need to keep his follow-up visits with a green building materials designer, and aggressive vascular risk factors. Follow up in 2 months. In the interim, patient will call the office with any concerns or change in symptoms. This note was generated using voice recognition software. While every effort has been made to ensure accuracy and proper facilities engineering manager, there may be occasional errors that could affect the content or meaning of the described symptoms. Orders: Orders Cardiac Rehab 06/28/25 Ash Chavarria NP Z98.61 - Coronary angioplasty status AMB EKG-In Office 06/28/25 Ash Chavarria NP I25.10 - Atherosclerotic heart disease of circle coronary artery without angina pectoris Medications: Changed From metoprolol succinate ER 100 mg PO DAILY 90 tabs 3RF To metoprolol succinate ER 200 mg PO DAILY Rose Mary Mcneill MD Coding Level of Care Code New Pt Level 4 (12963) Complex EM visit Add On G2211 Diagnoses CAD (coronary artery disease) I25.10 Coronary angioplasty status Z98.61 Pericarditis I31.9 Essential hypertension I10 Uncontrolled type 2 diabetes mellitus with hyperglycemia, with long-term current use of insulin E11.65; Z79.4 Hospital discharge follow-up Z09 CPT Codes EKG - CPT: [id number], Complete ([id number]) Time Spent (min) 34 Comment Time spent in reviewing the chart, test results, assessment, counseling and documentation.
== END 2025-06-28 16:16 | disposition home or self-care (01) ==
LOC: HO.HCS 15:04
PROVIDERS: PCP Internal Medicine
DX: I25.10 Atherosclerotic heart disease of native coronary artery without angina pectoris (principal); Z98.61 Coronary angioplasty status; I31.9 Disease of pericardium, unspecified; I10 Essential (primary) hypertension; E11.65 Type 2 diabetes mellitus with hyperglycemia; Z79.4 Long term (current) use of insulin; Z09 Encounter for follow-up examination after completed treatment for conditions other than malignant neoplasm
CPT/HCPCS: 99204; G2211

== ENCOUNTER → 2025-06-28 15:03 | Outpatient (BNVA) | payer OTHER, SELFPAY | PROVIDERS: PCP Internal Medicine | DX: I25.10 Atherosclerotic heart disease of native coronary artery without angina pectoris (principal); Z98.61 Coronary angioplasty status; I31.9 Disease of pericardium, unspecified; I10 Essential (primary) hypertension; E11.65 Type 2 diabetes mellitus with hyperglycemia; Z79.4 Long term (current) use of insulin; E78.5 Hyperlipidemia, unspecified; Z87.891 Personal history of nicotine dependence; Z09 Encounter for follow-up examination after completed treatment for conditions other than malignant neoplasm; Z79.82 Long term (current) use of aspirin | CPT/HCPCS: 93005; 99202 ==

== ENCOUNTER 2025-07-06 22:02 | Emergency (ER) | payer OTHER, SELFPAY ==
--- NOTE | ~2025-07-06 | CT_ITS ---
CLINICAL HISTORY: [place] CT head without contrast Comparison: CT/REG/SR - CT HEAD/BRAIN WO IV CON - 02/27/23 20:16 EDT Findings: BRAIN: No acute infarct, hemorrhage, or mass effect. Scattered periventricular/deep white matter hypodensities, nonspecific, however may represent chronic microvascular ischemic disease. CSF SPACES: No hydrocephalus or effacement of basal cisterns. SKULL: No calvarial fracture. SINUSES: No significant mucosal thickening or effusion on limited views. ORBITS: Bilateral lens replacements. OTHER: Possible small epidermal inclusion cyst in the left parietal scalp. IMPRESSION: 1. No acute intracranial findings. This document has been electronically signed by: Jadyn Haro MD on 07/07/2025 00:35:10
[2025-07-06 22:03] VITALS: BP 158/82; PULSE 96; RESP 18; TEMP 36.7; O2SAT 98; BMI 25.0
--- NOTE | 2025-07-06 22:08 | ECG_ITS ---
Test Reason : HEADACHE Blood Pressure : */* mmHG Vent. Rate : 93 BPM Atrial Rate : 93 BPM P-R Int : 170 ms QRS Dur : 82 ms QT Int : 312 ms P-R-T Axes : 47 -13 95 degrees QTcB Int : 387 ms Normal sinus rhythm Inferior infarct , age undetermined Abnormal ECG When compared with ECG of 14-Apr-2023 09:32, Vent. rate has increased by 33 bpm Inferior infarct is now Present Referred By: Generic ED Physician Electronically Signed By: BHAVIK MONTEJO MD
[2025-07-06 22:24] LABS: MANUAL DIFF FLAG NO
[2025-07-06 22:25] LABS: Hematocrit 38.2 % (42.0-52.0); Hemoglobin 12.8 g/dl (14.0-18.0); Imm Gran Abs Auto 0.04 X10*3/uL (0.00-0.03); Imm Gran Pct Auto 0.3 % (0.0-0.4); Lymphocytes Absolute Auto 1.1 X10*3/uL (1.2-4.9); Mean Corpuscular HGB Conc 33.5 g/dl (31.0-36.0); Mean Corpuscular Hemoglobin 28.6 pg (27.0-33.0); Mean Corpuscular Volume 85.3 fL (80.0-98.0); NRBC Abs Auto 0.000 X10*3/uL (0.0-0.012); NRBC Pct Auto 0.0 /100WBC (0.0-0.2); Platelet Count 307 X10*3/uL (160-400); Red Blood Count 4.48 X10*6/uL (4.60-5.80); White Blood Count 11.9 X10*3/uL (4.8-10.8)
--- OUTSIDE RECORDS SUMMARY | 2025-07-06 22:26 | XMS_ITS | Clinical Summary ---
Author Organization [facility] Address [address] [place] [address] [place] [address] Phone Care Team Providers Care Certification Technician Name Role Phone Rose Mary Jones MD Primary Care Provider [phone] Allergies No known active allergies Medications albuterol [...] patient's age to complete this topic Insurance [facility] ([id number]) [facility] ([id number]) Care Teams Certification Technician Relationship Specialty Start Date End Date Rose Mary Jones MD [address] [place] PCP - General 11/03/20
--- OUTSIDE RECORDS SUMMARY | 2025-07-06 22:26 | XMS_ITS | Patient Health Record ---
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 use of insulin (Z79.4) Active confirmed Plan Of Treatment Future Test Test Name Order Date COLONOSCOPY 11/26/2015 Insurance Providers Payer Name Payer Address Payer Phone Subscriber Number Group Number Insured Name Patient Relationship to Insured Coverage Start Date Coverage End Date MEDICARE OF [place] [address] [place] [id number] KOJO GALDAMEZ Self - patient is the insured [place] [facility] [address] [place] [phone] [id number] KOJO GALDAMEZ Self - patient is the insured Medical (General) History Medical History History ICD Code colonoscopy 12-04-2004 colon polyp hypertension elevated cholesterol coronary disease with IA and angioplasty diabetes mellitus Denies CVA,Lung disease,renal disease Surgical History Surgery Date(Month/Year) angioplasty
--- OUTSIDE RECORDS SUMMARY | 2025-07-06 22:26 | XMS_ITS | Clinical Summary ---
Author Organization [facility] Address [address] [place] [address] Phone Care Team Providers Care Cottrell Operator Name Role Phone Rose Mary Mcneill MD Primary Care Provider [phone] Social History Tobacco Use Types Packs/Day Years Used Date Smoking Tobacco: Never Assessed Sex and Gender Information Value Date Recorded Sex Assigned at Not on file Legal Sex Male 8:02 AM EDT Gender Identity Not on file Sexual Orientation Not on file Plan of Treatment Upcoming Encounters Date Type Department Care Team (Late st Contact Info) Description 08/29/2025 11:00 AM EST Consult Orthopedic Surgery - [place] [address] [phone] Yuri Chaney DPM [address] [address] Health Maintenance Due Date Last Done Comments Diabetes: Annual GFR (Glomer ular Filtration Rate) 1950 Diabetes: Annual Foot Exam 1960 Diabetes: Annual Retina Eye Exam 1960 DTaP,Tdap,and Td Vaccines (1 - Tdap) 1969 Pneumococcal Vaccine: 50+ Ye ars (1 of 2 - PCV) 1969 Zoster Vaccines (1 of 2) 2000 Depression Screening 10/24/2024 RSV Immunization Adult Patie nts (1 - 1-dose 75+ series) 2025 Abdominal Aortic Aneurysm (A AA) Screen 05/22/2025 Cholesterol Screening (Lipid Panel) 05/22/2025 Colorectal Cancer Screening: Colonoscopy 05/22/2025 Diabetes: Annual Urine Albumin-Creatinine Ratio (uACR) 05/22/2025 Diabetes: Blood Sugar Contro l Test (HGBA1C) 05/22/2025 Falls Risk Assessment 05/22/2025 Hepatitis C Screening 05/22/2025 Social Influencers of Health Screening 05/22/2025 COVID-19 Vaccine ( - 2023-2 5 season) 2025 Influenza Vaccine (#1) 2025 HIB Vaccines Aged Out No longer eligi ble based on patient's age to complete this topic HPV Vaccines Aged Out No longer eligi ble based on patient's age to complete this topic Hepatitis A Vaccines Aged Out No long er eligible based on patient's age to complete this topic Hepatitis B Vaccines Aged Out No long er eligible based on patient's age to complete this topic IPV Vaccines Aged Out No longer eligi ble based on patient's age to complete this topic MMR Vaccines Aged Out No longer eligi ble based on patient's age to complete this topic Meningococcal ACWY Vaccine Aged Out N o longer eligible based on patient's age to complete this topic Meningococcal B Vaccine Aged Out No l onger eligible based on patient's age to complete this topic RSV Immunization Patients Un taylor 20 months Aged Out No longer eligible b ased on patient's age to complete this topic Varicella Vaccines Aged Out No longer eligible based on patient's age to complete this topic Insurance [facility] MEDICAID - [place] Care Teams Cottrell Operator Relationship Specialty Start Date End Date Rose Mary Mcneill MD [address] [facility] , [address] [facility] D/B/A: [facility] [place] MD PCP - General Internal Medicine 05/22/25
[2025-07-06 22:38] LABS: Alanine Aminotransferase 29 U/L (0-40); Albumin Level 4.4 g/dL (3.5-5.0); Alkaline Phosphatase 133 U/L (39-117); Anion Gap 14 (12-20); Aspartate Amino Transferase 31 U/L (5-37); Blood Urea Nitrogen 15 mg/dL (9-16); Calcium 9.2 mg/dL (8.4-10.2); Carbon Dioxide 24 mmol/L (22-29); Chloride 106 mmol/L (96-108); Creatinine Clr Calc Pharmacy 38.2; Estimated Glomerular Filt Rate 47; Potassium 3.8 mmol/L (3.3-5.1); Sodium 140 mmol/L (135-145); Total Protein 7.1 g/dL (6.5-8.0)
[2025-07-06 22:44] LABS: Troponin-I High Sensitivity 3.8 ng/L (<3.5-35.0)
--- NOTE | 2025-07-06 22:51 | ED.HA ---
HPI - Headache General Chief Complaint: Headache Stated Complaint: severe head pain Time Seen by Provider: 07/06/25 22:18 History of Present Illness HPI Narrative: Patient is a 75-year-old male presents today with having headache for the last 3 days her. History of having a mi history of being on Plavix presents today with having headache that is in the occipital area worse on the left side. There is question change in vision yesterday but there is none today. There is no fever no chills. There is no diaphoresis is no focal weakness patient is from home. No coughing or congestion or upper respiratory symptoms. No neck pain no photophobia. Pain is not made worse with voice. Patient is from home. Took some Flexeril to no avail. Came to the ED. Related Data Home Medications ?Medication ?Instructions ?Recorded ?Confirmed nebulizers 10/28/22 06/28/25 amlodipine 5 mg tablet 5 mg PO DAILY 06/28/25 06/28/25 aspirin 325 mg tablet,delayed mg PO 06/28/25 06/28/25 release clopidogrel 75 mg tablet 75 mg PO DAILY 06/28/25 06/28/25 colchicine 0.6 mg tablet 0.6 mg PO BID 06/28/25 06/28/25 metoprolol succinate 100 mg 200 mg PO DAILY 06/28/25 06/28/25 tablet,extended release 24 hr pantoprazole 40 mg tablet,delayed 40 mg PO DAILY 06/28/25 06/28/25 release Previous Rx's ?Medication ?Instructions ?Recorded albuterol sulfate 2.5 mg/3 mL 2.5 mg (3 mL) inhalation Q4-6H PRN 09/28/22 (0.083 %) solution for nebulization shortness of breath or wheezing #90 mL fluticasone propionate 110 1 puff PO BID 30 days #12 ea 04/14/23 mcg/actuation HFA aerosol inhaler (Flovent HFA) blood-glucose meter (OneTouch #1 ea 10/07/23 Verio Flex Start kit) lancets 32 gauge #100 ea 10/07/23 acetaminophen 500 mg tablet 500 mg PO Q6H PRN fever or pain 10/09/23 (Tylenol Extra Strength) #14 tabs Ventolin HFA 90 mcg/actuation 2 puff inhalation Q6H PRN 03/25/24 aerosol inhaler (albuterol sulfate) shortness of breath or wheezing 30 days #8 grams pen needle, diabetic 31 gauge x #100 ea 01/16/2403/08 (1st Tier Unifine Pentips) blood-glucose,special forces medical sergeant,cont #1 ea 06/11/24 (FreeStyle Jarrod 3 [place]) blood-glucose sensor (FreeStyle #2 ea 07/13/24 Jarrod 3 Sensor device) blood sugar diagnostic (OneTouch #100 ea 12/09/24 Verio test strips) glucose 4 gram chewable tablet 16 g (4 x 4 gram) PO Q15M PRN 01/02/25 (Dex4 Glucose) hypoglycemia #100 tabs empagliflozin 25 mg tablet 25 mg PO DAILY 90 days #90 tabs 01/05/25 (Jardiance) metformin 500 mg tablet 500 mg PO BID 90 days #180 tabs 01/08/25 losartan 100 mg tablet 100 mg PO DAILY 90 days #90 tabs 03/20/25 cholecalciferol (vitamin D3) 25 25 mcg PO DAILY 90 days #90 caps 04/13/25 mcg (1,000 unit) capsule atorvastatin 40 mg tablet 40 mg PO DAILY 90 days #90 tabs 04/22/25 ciclopirox 8 % topical solution 1 appl topical BEDTIME 30 days 05/20/25 #6.6 mL insulin degludec 200 unit/mL (3 10 unit (0.05 mL) subcut DAILY #9 05/20/25 mL) subcutaneous pen (Tresiba mL FlexTouch U-200 insulin) insulin lispro 100 unit/mL 4 unit (0.04 mL) subcut TID #15 mL 05/20/25 subcutaneous pen (Humalog KwikPen (U-100) Insulin) semaglutide 2 mg/dose (8 mg/3 mL) 2 mg (0.75 mL) subcut QWEEK #3 mL 05/20/25 subcutaneous pen injector (Ozempic) cyclobenzaprine 10 mg tablet 10 mg PO TID PRN pain #14 tabs 07/07/25 ondansetron 4 mg disintegrating 4 mg PO TID PRN nausea and 07/07/25 tablet vomiting 5 days #10 tabs Allergies Allergy/AdvReac Type Severity Reaction Status Date / Time gabapentin Allergy Mild Itching Verified 07/06/25 22:07 Review of Systems Review of Systems: Positive headache mostly on the left side Yes all other systems are reviewed and are negative [facility] Past Medical History Attestation statement: The following information was validated with the patient. Medical History Myocardial infarction Arthritis Pulmonary nodule Cavitary pneumonia MRSA bacteremia Hypovitaminosis D Former smoker Hyperparathyroidism Annual physical exam CAD (coronary artery disease) Former smoker Obese Microalbuminuria CKD (chronic kidney disease) stage 3, GFR 30-59 ml/min care home (current) use of insulin Moderate asthma Pure hypercholesterolemia Essential hypertension Diabetes mellitus Surgical History H/O colonoscopy History of lipoma Family History Family History Father Diabetes Mother Diabetes Son No problems noted. Son No problems noted. Son No problems noted. Son No problems noted. Social History Social History Household Members: Spouse Housing: Apartment Are you a primary residential care officer to a significant other at home: No Do you presently have visiting nurse or other home services: Yes Alcohol intake: former Patient Tobacco Use Status: Former Tobacco user Tobacco use type: Cigarette Smoked in Last 30 Days: No e-Cigarette/Vaping Use: Never Used Second Hand Smoke Exposure: No Use of substances other than those prescribed or required for medical reasons: No Advance Directives: No Advance Directives Information Provided: No Advance Directives Date on File: 07/30/20 Do you have a plan to hurt others: No Plan service: No Current occupational status: retired Cognitive needs: No Hearing needs: No Vision needs: Yes (Glasses) Physical Exam Exam: Exam: Appearance: Alert. Oriented X3. No acute distress. Eyes: Pupils equal, round and reactive to light. ENT: Pharynx normal. Neck: Normal inspection. Neck supple. No lymph nodes noted. No crepitus CVS: Normal heart rate and rhythm. Pulses normal. Normal S1 and S2 Respiratory: No respiratory distress. Breath sounds normal. No Wheezing. No rales Abdomen: Soft and nontender. No rigidity. No distention. good BS x4 Skin: Skin warm and dry. Normal skin color. Normal skin turgor. Extremities: No lower extremity edema. Neurovascular intact to all extremities. No Lacerations. No Rash Neuro: Oriented X 3. No motor deficit. No sensory deficit. Moving all extermities. No slurred speech Vital Signs: Vital Signs: Last Vital Signs Temp 100.4 F 07/07/25 00:36 Pulse 104 H 07/07/25 00:36 Resp 16 07/07/25 00:36 BP 161/89 H 07/07/25 00:36 Pulse Ox 99 07/07/25 00:36 O2 Del Method Room Air 07/07/25 00:36 BMI result Body Mass Index 25.0 Medications Administered Discontinued Medications Generic Name Dose Route Start Last Admin Trade Name Freq PRN Reason Stop Dose Admin Diphenhydramine HCl 25 mg 07/06/25 22:50 07/06/25 23:21 Diphenhydramine Hcl 50 Mg/Ml Vial IVPUSH 07/06/25 22:51 25 mg ONCE ONE Administration Metoclopramide HCl 10 mg 07/06/25 22:50 07/06/25 23:21 Metoclopramide Hcl 10 Mg/2 Ml Vial IVPUSH 07/06/25 22:51 10 mg ONCE ONE Administration Medical Decision Making Medical Decision Making [facility] Narrative: Patient's headache in the posterior aspect of the head had question blurred vision and now has normal vision again. We did sed rate and CRP which were both negative. In the setting of negative sed rate and CRP unlikely to have temporal arteritis. CT scan of the head showed no evidence of bleeding. Symptoms not consistent with meningitis. There is no bleed on the CT. Given migraine cocktail symptoms seems to have improved dramatically. Will discharge Differential Diagnosis Differential Diagnoses: The differential diagnosis associated with the presentation includes Tension headache, musculoskeletal headache Admission/Observation Consideration of admission/observation: Escalation of care including admission/observation considered Lab Data [facility] Lab Attestation statement: I reviewed the patient's lab results. 07/06/25 22:18 07/06/25 22:18 Labs: Lab Results 07/06/25 Range/Units 22:18 WBC 11.9 H (4.8-10.8) X10*3/uL RBC 4.48 L (4.60-5.80) X10*6/uL Hgb 12.8 L (14.0-18.0) g/dl Hct 38.2 L (42.0-52.0) % MCV 85.3 (80.0-98.0) fL MCH 28.6 (27.0-33.0) pg MCHC 33.5 (31.0-36.0) g/dl RDW 14.7 (11.0-16.0) % Plt Count 307 (160-400) X10*3/uL MPV 10.2 (9.4-12.4) fL Immature Gran % (Auto) 0.3 (0.0-0.4) % Neut % (Auto) 77.6 H (45-73) % Lymph % (Auto) 9.6 L (20-40) % [place] % (Auto) 8.6 (2-11) % Eos % (Auto) 3.6 (0-4) % Baso % (Auto) 0.3 (0-2) % Lymph # (Auto) 1.1 L (1.2-4.9) X10*3/uL [place] # (Auto) 1.0 (0.1-1.2) X10*3/uL Eos # (Auto) 0.4 (0.0-0.4) X10*3/uL Baso # (Auto) 0.0 (0.0-0.2) X10*3/uL Abs Immat Gran (auto) 0.04 H (0.00-0.03) X10*3/uL Absolute Neuts (auto) 9.2 H (2.0-8.3) x10*3/uL Absolute Nucleated RBC 0.000 (0.0-0.012) X10*3/uL Nucleated RBC % (auto) 0.0 (0.0-0.2) /100WBC ESR 13 (0-15) MM/HR Sodium 140 (135-145) mmol/L Potassium 3.8 (3.3-5.1) mmol/L Chloride 106 (96-108) mmol/L Carbon Dioxide 24 (22-29) mmol/L Anion Gap 14 (12-20) BUN 15 (9-16) mg/dL Creatinine 1.45 H (0.5-1.4) mg/dL Estim Creat Clear Calc 38.2 Estimated GFR 47 Random Glucose 175 H (60-115) mg/dL Calcium 9.2 (8.4-10.2) mg/dL Total Bilirubin 0.4 (0.0-1.0) mg/dL AST 31 (5-37) U/L ALT 29 (0-40) U/L Alkaline Phosphatase 133 H (39-117) U/L Troponin I High Sens 3.8 (<3.5-35.0) ng/L C-Reactive Protein 0.42 (< or = 0.50) mg/dL Total Protein 7.1 (6.5-8.0) g/dL Albumin 4.4 (3.5-5.0) g/dL Independent Interpretation I performed an independent interpretation of an: CT Scan (CT head was negative) Radiology Impression Discussion of test interpretation with radiology: I have reviewed the radiologist's reading. Independent Historian Additional history obtained through patient's son Prescription Management I considered prescription management with: Pain Medication Chronic Conditions Patient?s care impacted by: Hypertension History of coronary artery disease Social Determinants Patient?s care significantly limited by Social Determinants of Health including: Problems related to primary support group Discharge Plan Discharge Clinical Impression: Headache Patient Disposition: Home, Self-Care Instructions: Acute Headache (DC) Prescriptions: New cyclobenzaprine 10 mg tablet 10 mg PO TID PRN (Reason: pain) Qty: 14 0RF ondansetron 4 mg tablet,disintegrating 4 mg PO TID PRN (Reason: nausea and vomiting) 5 Days Qty: 10 0RF No Action (DME) blood-glucose meter [OneTouch Verio Flex Start] Kit See Rx Instructions .Route Qty: 1 0RF Rx Instructions: test twice per day (DME) lancets 32 gauge misc See Rx Instructions .Route Qty: 100 8RF Rx Instructions: test twice per day (DME) OneTouch Verio test strips Strip See Rx Instructions .Route Qty: 100 8RF Rx Instructions: test twice per day glucose [Dex4 Glucose] 4 gram tablet,chewable 16 g PO Q15M PRN (Reason: hypoglycemia) Qty: 100 1RF Rx Instructions: until symptoms of low blood sugar are controlled Jardiance 25 mg tablet 25 mg PO DAILY 90 Days Qty: 90 3RF metformin 500 mg tablet 500 mg PO BID 90 Days Qty: 180 3RF losartan 100 mg tablet 100 mg PO DAILY 90 Days Qty: 90 1RF cholecalciferol (vitamin D3) 25 mcg (1,000 unit) capsule 25 mcg PO DAILY 90 Days Qty: 90 1RF atorvastatin 40 mg tablet 40 mg PO DAILY 90 Days Qty: 90 1RF albuterol sulfate 2.5 mg /3 mL (0.083 %) solution for nebulization 2.5 mg inhalation Q4-6H PRN (Reason: shortness of breath or wheezing) Qty: 90 0RF acetaminophen [Tylenol Extra Strength] 500 mg tablet 500 mg PO Q6H PRN (Reason: fever or pain) Qty: 14 0RF albuterol sulfate [Ventolin HFA] 90 mcg/actuation HFA aerosol inhaler 2 puff inhalation Q6H PRN (Reason: shortness of breath or wheezing) 30 Days Qty: 8 3RF (DME) pen needle, diabetic [1st Tier Unifine Pentips] 31 gauge x 5/16 needle See Rx Instructions .Route Qty: 100 1RF Rx Instructions: Use 1 pen needle once a da Flovent HFA 110 mcg/actuation HFA aerosol inhaler 1 puff PO BID 30 Days Qty: 12 11RF (DME) nebulizers Misc See Rx Instructions .Route Rx Instructions: As directed (DME) FreeStyle Jarrod 3 [place] Misc See Rx Instructions .ROUTE .MEDSUPPLY Qty: 1 0RF Rx Instructions: Use daily As directed to monitor blood glucose (DME) FreeStyle Jarrod 3 Sensor Device See Rx Instructions .ROUTE .MEDSUPPLY Qty: 2 11RF Rx Instructions: Apply every 14 days As directed to monitor blood glucose insulin lispro [Humalog KwikPen Insulin] 100 unit/mL insulin pen 4 unit subcut TID Qty: 15 2RF Rx Instructions: with breakfast, lunch and supper Ozempic 2 mg/dose (8 mg/3 mL) pen injector 2 mg subcut QWEEK Qty: 3 4RF insulin degludec [Tresiba FlexTouch U-200] 200 unit/mL (3 mL) insulin pen 10 unit subcut DAILY Qty: 9 2RF ciclopirox 8 % solution 1 appl topical BEDTIME 30 Days Qty: 6.6 2RF clopidogrel 75 mg tablet 75 mg PO DAILY amlodipine 5 mg tablet 5 mg PO DAILY aspirin 325 mg tablet,delayed release (DR/EC) PO pantoprazole 40 mg tablet,delayed release (DR/EC) 40 mg PO DAILY colchicine 0.6 mg tablet 0.6 mg PO BID metoprolol succinate 100 mg tablet extended release 24 hr 200 mg PO DAILY Print Language: Setswana
[2025-07-07 00:36] VITALS: BP 161/89; PULSE 104; RESP 16; TEMP 38; O2SAT 99
[2025-07-07 01:00] VITALS: BP 161/89; PULSE 104; RESP 16; TEMP 38; O2SAT 99
== END 2025-07-07 01:01 | disposition home or self-care (01) ==
PROVIDERS: Emergency Provider Emergency Medicine Emergency Medical Services; PCP Internal Medicine
DX: R51.9 Headache, unspecified (principal); I25.2 Old myocardial infarction; E11.22 Type 2 diabetes mellitus with diabetic chronic kidney disease; I12.9 Hypertensive chronic kidney disease with stage 1 through stage 4 chronic kidney disease, or unspecified chronic kidney disease; N18.30 Chronic kidney disease, stage 3 unspecified; Z79.899 Other long term (current) drug therapy
CPT/HCPCS: 36415; 70450; 80053; 84484; 85025; 85652; 86140; 93005; 96374; 96375; 99285; J1200; J2765

== ENCOUNTER → 2025-07-06 22:08 | Outpatient (BNV) | payer OTHER, SELFPAY | PROVIDERS: Emergency Provider Emergency Medicine Emergency Medical Services; PCP Internal Medicine; Visit Provider Internal Medicine Cardiovascular Disease | DX: R94.31 Abnormal electrocardiogram [ECG] [EKG] (principal); R51.9 Headache, unspecified | CPT/HCPCS: 93010 ==

== ENCOUNTER → 2025-07-06 22:51 | Outpatient (BNV) | payer OTHER, SELFPAY | PROVIDERS: Emergency Provider Emergency Medicine Emergency Medical Services; PCP Internal Medicine; Visit Provider Student in an Organized Health Care Education/Training Program | DX: R51.9 Headache, unspecified (principal) | CPT/HCPCS: 70450 ==

== ENCOUNTER 2025-08-19 09:34 | Outpatient (AMB) | payer OTHER, SELFPAY ==
[2025-08-19 09:36] VITALS: BP 124/80; PULSE 66; O2SAT 99; BMI 25.6
--- NOTE | 2025-08-19 09:36 | A.OFFVIS_ITS ---
Vital Signs 08/19/25 09:36 Height 5 ft 5 in Weight 153 lb 10.595 oz BMI 25.6 BP 124/80 Blood Pressure Location Rt brachial Position Sitting Pulse 66 Pulse Source Pulse Oximeter Pulse Oximetry (%) 99 Oxygen Delivery Method Room Air Intake Visit Reasons: DM Intake Note: Patient present today for Type 2 Diabetes Mellitus Last Diabetic eye exam: Last exam was in 2023 and has appt for 11/2025 Last Podiatry Visit: Doesn't have one Random Glucose: 126 mg/dl HgA1C: 7.2% Non Destructive Testing Supervisor Required: Yes Non Destructive Testing Supervisor Language: Hoist Operator Services: Non Destructive Testing Supervisor Present Non Destructive Testing Supervisor Name: An Information Interpreted: non-clinical & clinical Accompanied by: Self / Same As Patient Allergies gabapentin Allergy (Mild, Verified 08/19/25 09:42) Itching Medication List - Last Reconciled 08/19/25 by Vita Guido PA-C acetaminophen (Tylenol Extra Strength) 500 mg PO Q6H PRN albuterol sulfate 2.5 mg (3 mL) inhalation Q4-6H PRN amlodipine 5 mg PO DAILY aspirin mg PO atorvastatin 40 mg PO DAILY 90 days blood sugar diagnostic (OneTouch Verio test strips) test twice per day blood-glucose meter (OneTouch Verio Flex Start kit) test twice per day blood-glucose sensor (FreeStyle Jarrod 3 Plus Sensor device) Use daily As directed to monitor glucose blood-glucose sensor (FreeStyle Jarrod 3 Sensor device) Apply every 14 days As directed to monitor blood glucose blood-glucose,tow picker,cont (FreeStyle Jarrod 3 [place]) Use daily As directed to monitor blood glucose cholecalciferol (vitamin D3) 25 mcg PO DAILY 90 days ciclopirox 8% 1 appl topical BEDTIME 30 days clopidogrel 75 mg PO DAILY colchicine 0.6 mg PO BID cyclobenzaprine 10 mg PO TID PRN empagliflozin (Jardiance) 25 mg PO DAILY 90 days fluticasone propionate 110 mcg/actuation (Flovent HFA) 1 puff PO BID 30 days glucose (Dex4 Glucose) 16 grams (4 x 4 gram) PO Q15M PRN insulin degludec (Tresiba FlexTouch U-200 insulin) 10 units (0.05 mL) subcut D AILY insulin lispro (Humalog KwikPen (U-100) Insulin) 4 units (0.04 mL) subcut TID lancets test twice per day losartan 100 mg PO DAILY 90 days metformin 500 mg PO BID 90 days metoprolol succinate ER 200 mg PO DAILY nebulizers As directed ondansetron 4 mg PO TID PRN 5 days pantoprazole 40 mg PO DAILY pen needle, diabetic (1st Tier Unifine Pentips) Use 1 pen needle once a da tirzepatide (Mounjaro) 2.5 mg (0.5 mL) subcut QWEEK Ventolin HFA 90 mcg/actuation (albuterol sulfate) 2 puffs inhalation Q6H PRN 30 days NS HPI HPI DM: Details: Patient is a 75-year-old male with a significant past medical history of CAD, hypertension, hyperlipidemia, chronic kidney disease, secondary hyperparathyroidism, anemia of chronic disease and diabetes presenting today for a follow-up regarding diabetes. credit administration officer: Eloina but he does not need an medical associate Endo: A1c 7.2 Current regimen: Jardiance 25 mg daily, metformin 500 mg daily, Tresiba 10 units nightly, Humalog 6 units 3 times a day and ozempic 2 mg weekly. No nausea or vomiting. He has noticed some appetite suppression with the ozempic. He has noticed that his blood sugars have been much better. -States ozempic is causing constipation and dry mouth Prior medications: Trulicity cause nausea, metformin at higher doses causes GI upset, trialed Lantus but wore off, Toujeo had similar effects of wearing off CGM-usage 97%, average glucose 146, GMI 6.8%. hyperglycemic 24 %, in range 75%. 1% hypoglycemia. -he denies hypoglycemic events. States sensor is due to sleeping on it. He states that he will check the sugar and it looks like it is overall normal. He is asymptomatic with this. He states he knows how to treat low glucose readings and has candies. Followed for diabetic Education and found this very helpful. Nephro: He is following closely with Nephrology given his kidney disease and intermittent AKIs. CV: Blood pressure today in the office is 124/80. He is currently on metoprolol 100 mg, losartan 100 mg. Cholesterol is controlled with atorvastatin 40 mg. Vascular: Up-to-date and does have PAD and this is being monitored every 6 months. No sores or changes in his symptoms of claudication. PFSH Medical History Myocardial infarction Arthritis Pulmonary nodule Cavitary pneumonia MRSA bacteremia Hypovitaminosis D Former smoker Hyperparathyroidism Annual physical exam CAD (coronary artery disease) Former smoker Obese Microalbuminuria CKD (chronic kidney disease) stage 3, GFR 30-59 ml/min residential (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 Son No problems noted. Son No problems noted. Son No problems noted. Social History Household Members: Spouse Housing: Apartment Are you a primary dog day care attendant to a significant other at home: No Do you presently have visiting nurse or other home services: Yes Alcohol intake: former Patient Tobacco Use Status: Former Tobacco user Tobacco use type: Cigarette e-Cigarette/Vaping Use: Never Used Second Hand Smoke Exposure: No Advance Directives Date on File: 07/30/20 service: No Current occupational status: retired Cognitive needs: No Hearing needs: No Vision needs: Yes (Glasses) Physical Exam Vital Signs: Last Vital Signs Pulse 66 08/19/25 09:36 BP 124/80 08/19/25 09:36 Pulse Ox 99 08/19/25 09:36 Oxygen Delivery Method Room Air 08/19/25 09:36 BMI result Body Mass Index 25.6 Const Orientation/consciousness: patient oriented x3 HEENT Ears: hearing grossly normal bilaterally Neck Thyroid: Thyroid normal Lymphatic: no lymphadenopathy noted Resp Auscultation: clear to auscultation bilaterally Cardio Rate: regular rate Rhythm: regular rhythm Heart sounds: S1 normal heart sound present and S2 normal heart sound present Skin General skin exam: no rashes or lesions noted Neuro General: patient oriented x3, gait normal and no focal motor deficits Results AMB Hemoglobin A1c AMB Hemoglobin A1c 7.2 % Last Edit by LAZARO Acevedo on 08/19/25 10:00 Results Reviewed Results Reviewed: Laboratory Last Values Glucose (Clinic) 126 mg/dL (60-115) H 08/19/25 09:45 Laboratory Tests 08/09/24 05/20/25 07/06/25 06:24 10:02 22:18 Estim Creat Clear Calc 38.2 Estimated GFR 47 POC Glucose Hgb A1c (Clinic) 6.9 H AST 31 ALT 29 Islet Cell Ab Screen NEGATIVE DAX Antibody <5 07/16/25 11:06 Estim Creat Clear Calc Estimated GFR POC Glucose 135 H Hgb A1c (Clinic) AST ALT Islet Cell Ab Screen DAX Antibody Assessment & Plan Assessment & Plan (1) Uncontrolled type 2 diabetes mellitus with hyperglycemia, with long-term current use of insulin: Code(s): E11.65 - Type 2 diabetes mellitus with hyperglycemia; 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 We will switch to Mounjaro. We discussed risks and benefits and adverse effects. He will let me know if he is unable to tolerate this. We will do a short term follow up Continue Jardiance 25 mg daily Continue metformin 500 mg twice a day Reduce Tresiba to 10 units daily Reduce Humalog to 6 units 3 times a day (2) Essential hypertension: Code(s): I10 - Essential (primary) hypertension Category: Medical Plan: WNL. Continue current regimen (3) Onychomycosis: Code(s): B35.1 - Tinea unguium Category: Medical Plan: I have referred him to Podiatry. 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
[2025-08-19 09:48] LABS: Glucose, Whole Blood 126 mg/dL (60-115)
--- OUTSIDE RECORDS SUMMARY | 2025-08-19 10:46 | XMS_ITS | Patient Health Record ---
Author Organization [facility] Address [address] [place] [address] Care Team Providers Care Hand Former Helper Name Role Phone Nidhi (RETIRED) Vadim KERR [...] GM As directed Orally Over the specified time.; Duration: 1 day(s) 11/26/2015 Active Metoprolol Succinate ER [...] Problem Status W/U Status Risk Notes Problem Colon cancer screening (459643141) Colon cancer screening (Z12.11) Active confirmed Problem Long-term current use of insulin (070652781) buttermaker continuous churn current use of insulin (Z79.4) Active confirmed Plan Of Treatment Future Test Test Name Order Date COLONOSCOPY 11/26/2015 Insurance Providers Payer Name Payer Address Payer Phone Subscriber Number Group Number Insured Name Patient Relationship to Insured Coverage Start Date Coverage End Date MEDICARE OF [place] [address] [place] [id number] KOJO GALDAMEZ Self - patient is the insured [facility]ID [facility] [address] [place] [phone] [id number] KOJO GADLAMEZ Self - patient is the insured Medical (General) History Medical History History ICD Code colonoscopy 12-04-2004 colon polyp hypertension elevated cholesterol coronary disease with AR and angioplasty diabetes mellitus Denies CVA,Lung disease,renal disease Surgical History Surgery Date(Month/Year) angioplasty
--- OUTSIDE RECORDS SUMMARY | 2025-08-19 10:46 | XMS_ITS | Clinical Summary ---
Author Organization [address] [facility] Address [address] [place] [address] Phone Care Team Providers Care Tire Repairer Name Role Phone Rose Mary Mcneill MD Primary Care Provider [phone] Social History Tobacco Use Types Packs/Day Years [...] 11:00 AM EST Consult Orthopedic Surgery - [place] [id number] [phone] Yuri Chaney DPM [address] [address] Health Maintenance Due Date Last Done Comments Colorectal Cancer Screening: Colonoscopy 1950 Diabetes: Annual GFR (Glomer ular Filtration Rate) [...] Screen 05/22/2025 Cholesterol Screening (Lipid Panel) 05/22/2025 Diabetes: Annual Urine Albumin-Creatinine Ratio (uACR) [...] patient's age to complete this topic Insurance [facility] [place] [id number] MEDICAID - [place] Care Teams Tire Repairer Relationship Specialty Start Date End Date Rose Mary Mcneill MD [address] [facility] D/B/A: [facility] [place] PCP - General Internal Medicine 05/22/25
--- OUTSIDE RECORDS SUMMARY | 2025-08-19 10:46 | XMS_ITS | Clinical Summary ---
Author Organization [facility] Address [address] [place] [address] [place] [address] Phone Care Team Providers Care Quality Control Tech Name Role Phone Rose Mary Jones MD Primary Care Provider [phone] Allergies No known active allergies Medications albuterol [...] this topic Insurance [facility] ([id number]) [facility] ([id number]) Care Teams Quality Control Tech Relationship Specialty Start Date End Date Rose Mary Jones MD [address] [place] PCP - General 11/03/20
== END 2025-08-19 09:58 | disposition home or self-care (01) ==
LOC: HO.ENCR 09:34
PROVIDERS: PCP Internal Medicine; Visit Provider Physician Assistant
DX: E11.65 Type 2 diabetes mellitus with hyperglycemia (principal); Z79.4 Long term (current) use of insulin; I10 Essential (primary) hypertension; B35.1 Tinea unguium; Z13.9 Encounter for screening, unspecified

== ENCOUNTER → 2025-08-19 09:34 | Outpatient (BNVA) | payer OTHER, SELFPAY | PROVIDERS: PCP Internal Medicine; Visit Provider Physician Assistant | DX: E11.65 Type 2 diabetes mellitus with hyperglycemia (principal); I10 Essential (primary) hypertension; B35.1 Tinea unguium; Z79.4 Long term (current) use of insulin | CPT/HCPCS: 82947; 83036; 99212 ==

== ENCOUNTER 2025-08-23 07:00 | Outpatient (REF) | payer OTHER, SELFPAY ==
--- OUTSIDE RECORDS SUMMARY | 2025-08-23 07:03 | XMS_ITS | Patient Health Record ---
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 developer current use of insulin (Z79.4) Active confirmed Plan Of Treatment Future Test Test Name Order Date COLONOSCOPY 11/26/2015 Insurance Providers Payer Name Payer Address Payer Phone Subscriber Number Group Number Insured Name Patient Relationship to Insured Coverage Start Date Coverage End Date MEDICARE OF [place] [address] [place] [id number] KOJO GALDAMEZ Self - patient is the insured [facility] [address] [place] [phone] [id number] KOJO GALDAMEZ Self - patient is the insured Medical (General) History Medical History History ICD Code colonoscopy 12-04-2004 colon polyp hypertension elevated cholesterol coronary disease with [place] and angioplasty diabetes mellitus Denies CVA,Lung disease,renal disease Surgical History Surgery Date(Month/Year) angioplasty
[2025-08-23 07:15] LABS: MANUAL DIFF FLAG NO
[2025-08-23 07:22] LABS: Hematocrit 39.2 % (42.0-52.0); Hemoglobin 12.5 g/dl (14.0-18.0); Imm Gran Abs Auto 0.02 X10*3/uL (0.00-0.03); Imm Gran Pct Auto 0.3 % (0.0-0.4); Lymphocytes Absolute Auto 2.3 X10*3/uL (1.2-4.9); Mean Corpuscular HGB Conc 31.9 g/dl (31.0-36.0); Mean Corpuscular Hemoglobin 27.7 pg (27.0-33.0); Mean Corpuscular Volume 86.9 fL (80.0-98.0); NRBC Abs Auto 0.000 X10*3/uL (0.0-0.012); NRBC Pct Auto 0.0 /100WBC (0.0-0.2); Platelet Count 317 X10*3/uL (160-400); Red Blood Count 4.51 X10*6/uL (4.60-5.80); White Blood Count 7.2 X10*3/uL (4.8-10.8)
[2025-08-23 07:59] LABS: Alanine Aminotransferase 22 U/L (0-40); Albumin Level 4.4 g/dL (3.5-5.0); Alkaline Phosphatase 111 U/L (39-117); Anion Gap 11 (12-20); Aspartate Amino Transferase 25 U/L (5-37); Blood Urea Nitrogen 19 mg/dL (9-16); Calcium 9.9 mg/dL (8.4-10.2); Carbon Dioxide 27 mmol/L (22-29); Chloride 108 mmol/L (96-108); Cholesterol 126 mg/dL (<200); Estimated Glomerular Filt Rate 45; HDL Cholesterol 42 mg/dL (>40); Iron 69 mcg/dL (45-160); Percent Iron Saturation 31 % (15-50); Potassium 4.3 mmol/L (3.3-5.1); Sodium 142 mmol/L (135-145); Total Iron Binding Capacity 226 mcg/dL (228-428); Total Protein 7.0 g/dL (6.5-8.0); Triglycerides 122 mg/dL (<150); Unsaturated Iron Binding 157 ug/dL
[2025-08-23 08:06] LABS: Parathyroid Hormone Intact 98.0 pg/mL (8.7-77.1)
[2025-08-23 08:30] LABS: Microalbum/Creatinine Ratio Ur 46.0 ug/mg cr (<30)
[2025-08-23 08:30] LABS: Folate 7.5 ng/mL (> or = 4.0); Vitamin B12 275 pg/mL (200-900)
[2025-08-25 19:49] LABS: Calcium, Random Urine 14.3 mg/dL
[2025-08-26 16:54] LABS: Calcium, Ionized 5.4 mg/dL (4.7-5.5)
== END 2025-08-23 07:01 | disposition home or self-care (01) ==
LOC: HO.LAB 07:00
PROVIDERS: PCP Internal Medicine; Referring Provider Internal Medicine Hypertension Specialist; Visit Provider Internal Medicine
DX: E11.65 Type 2 diabetes mellitus with hyperglycemia (principal); E53.8 Deficiency of other specified B group vitamins; E78.5 Hyperlipidemia, unspecified; D64.9 Anemia, unspecified; R80.9 Proteinuria, unspecified; E21.3 Hyperparathyroidism, unspecified; E55.9 Vitamin D deficiency, unspecified; Z79.4 Long term (current) use of insulin
CPT/HCPCS: 36415; 80053; 80061; 82043; 82306; 82310; 82330; 82570; 82607; 82746; 83540; 83970; 84100; 85025

== ENCOUNTER 2025-08-26 11:25 | Outpatient (AMB) | payer OTHER, SELFPAY ==
[2025-08-26 11:30] VITALS: BP 112/62; PULSE 75; O2SAT 99; BMI 25.6
--- NOTE | 2025-08-26 11:30 | HO.NEPHOV_ITS ---
Vital Signs 08/26/25 11:30 Height 5 ft 5 in Weight 154 lb BMI 25.6 BP 112/62 Blood Pressure Location Rt brachial Position Sitting Pulse 75 Pulse Source Pulse Oximeter Pulse Oximetry (%) 99 Oxygen Delivery Method Room Air Intake Visit Reasons: 6 MO FU conf Ancillary Services Manager Required: No Ancillary Services Manager Services: Ancillary Services Manager Offered & Declined (Patient understands and declines cut off operator scorer) Accompanied by: Self / Same As Patient Allergies gabapentin Allergy (Mild, Verified 09/02/25 08:51) Itching Medication List - Last Reconciled 08/26/25 by Maikol Davis MD acetaminophen (Tylenol Extra Strength) 500 mg PO Q6H PRN albuterol sulfate 2.5 mg (3 mL) inhalation Q4-6H PRN amlodipine 5 mg PO DAILY aspirin mg PO atorvastatin 40 mg PO DAILY 90 days blood sugar diagnostic ([employer] Verio test strips) test twice per day blood-glucose meter ([employer] Verio Flex Start kit) test twice per day blood-glucose sensor (FreeStyle Jarrod 3 Plus Sensor device) Use daily As directed to monitor glucose blood-glucose sensor (FreeStyle Jarrod 3 Sensor device) Apply every 14 days As directed to monitor blood glucose blood-glucose,butter liquefier,cont (FreeStyle Jarrod 3 Chataignier) Use daily As directed to monitor blood glucose cholecalciferol (vitamin D3) 25 mcg PO DAILY 90 days ciclopirox 8% 1 appl topical BEDTIME 30 days clopidogrel 75 mg PO DAILY colchicine 0.6 mg PO BID cyclobenzaprine 10 mg PO TID PRN empagliflozin (Jardiance) 25 mg PO DAILY 90 days fluticasone propionate 110 mcg/actuation (Flovent HFA) 1 puff PO BID 30 days glucose (Dex4 Glucose) 16 grams (4 x 4 gram) PO Q15M PRN insulin degludec (Tresiba FlexTouch U-200 insulin) 10 units (0.05 mL) subcut DAILY insulin lispro (Humalog KwikPen (U-100) Insulin) 4 units (0.04 mL) subcut TID lancets test twice per day losartan 100 mg PO DAILY 90 days metformin 500 mg PO BID 90 days metoprolol succinate ER 200 mg PO DAILY nebulizers As directed ondansetron 4 mg PO TID PRN 5 days pantoprazole 40 mg PO DAILY pen needle, diabetic (1st Tier Unifine Pentips) Use 1 pen needle once a da tirzepatide (Mounjaro) 2.5 mg (0.5 mL) subcut QWEEK Ventolin HFA 90 mcg/actuation (albuterol sulfate) 2 puffs inhalation Q6H PRN 30 days NS HPI Comments Details: Kinga Moffett is a 74 man with a history of longstanding diabetes mellitus. He has history of CKD with a baseline creatinine between 1.3 and 1.6 mg/dL. He has had few episodes of mild JOHN s He has been referred for evaluation of CKD. 08/26/2025 The patient is a 75-year-old male presenting with stable kidney function and hypertension management. The patient's kidney function has been stable, although it is noted to be decreased, it has remained consistent over time. The patient has been advised to maintain hydration and monitor blood pressure regularly. The patient is currently on a medication regimen that includes Amlodipine, Jardiance, Losartan, and Mounjaro. Blood pressure was recorded at 112/62 mmHg, indicating good control. [facility] Medical History Myocardial infarction Arthritis Pulmonary nodule Cavitary pneumonia MRSA bacteremia Hypovitaminosis D Former smoker Hyperparathyroidism Annual physical exam CAD (coronary artery disease) Former smoker Obese Microalbuminuria CKD (chronic kidney disease) stage 3, GFR 30-59 ml/min FCI (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 Son No problems noted. Son No problems noted. Son No problems noted. Social History Household Members: Spouse Housing: Apartment Are you a primary residential care officer to a significant other at home: No Do you presently have visiting nurse or other home services: Yes Alcohol intake: former Patient Tobacco Use Status: Former Tobacco user Tobacco use type: Cigarette e-Cigarette/Vaping Use: Never Used Second Hand Smoke Exposure: No Advance Directives Date on File: 07/30/20 service: No Current occupational status: retired Cognitive needs: No Hearing needs: No Vision needs: Yes (Glasses) Physical Exam Vital Signs: Last Vital Signs Pulse 75 08/26/25 11:30 BP 112/62 08/26/25 11:30 Pulse Ox 99 08/26/25 11:30 Oxygen Delivery Method Room Air 08/26/25 11:30 BMI result Body Mass Index 25.6 Comfortable Neck supple no JVD. Lungs entry equal no rales. Heart S1-S2 heard no gallop or rub. Abdomen soft nontender. Neuro alert awake oriented. No asterixis. Extremities no edema. Results Reviewed Nephrology Results: Hgb, (14.0-18.0) 12.5 g/dl L 08/23/25 WBC, (4.8-10.8) 7.2 X10*3/uL 08/23/25 Plt Count, (160-400) 317 X10*3/uL 08/23/25 Sodium, (135-145) 142 mmol/L 08/23/25 Potassium, (3.3-5.1) 4.3 mmol/L 08/23/25 Chloride, (96-108) 108 mmol/L 08/23/25 Carbon Dioxide, (22-29) 27 mmol/L 08/23/25 BUN, (9-16) 19 mg/dL H 08/23/25 Creatinine, (0.5-1.4) 1.51 mg/dL H 08/23/25 Calcium, (8.4-10.2) 9.9 mg/dL Δ 08/23/25 Phosphorus, (2.7-4.5) 3.4 mg/dL 08/23/25 PTH Intact, (8.7-77.1) 98.0 pg/mL H 08/23/25 Urine Creatinine 130.20 mg/dL 08/23/25 Renal US 05/04/24 Assessment & Plan Assessment & Plan (1) CKD (chronic kidney disease) stage 3, GFR 30-59 ml/min: Code(s): N18.30 - Chronic kidney disease, stage 3 unspecified Category: Medical Qualifiers: Chronic kidney disease stage 3 subtype: stage 3a (GFR 45-59) Qualified Code(s): N18.31 - Chronic kidney disease, stage 3a Plan Zuhair and CKD 3 in a setting of longstanding hypertension diabetes mellitus. He is minimal proteinuria. Urine microalbumin creatinine ratio was 71. Creatinine has improved and remains stable Goal is to slow the progression of the kidney disease. Agree with NATACHA inhibition along with SGLT2 inhibitors to slow the progression of renal disease. Blood pressure be maintained less than 130/80. Currently blood pressure is acceptable. We discussed importance of tight control of blood sugar and to maintain A1c less than 7%. Encouraged him to increase physical activities Continue with low-sodium diet. He has mild secondary hyperparathyroidism. Serum calcium normal We will monitor for now. Orders: Orders Creatinine Urine 6 Months N18.31 - Chronic kidney disease, stage 3a UA and rflx microscopic 6 Months N18.31 - Chronic kidney disease, stage 3a Basic Metabolic Panel 6 Months N18.31 - Chronic kidney disease, stage 3a Total Protein Urine Random 6 Months N18.31 - Chronic kidney disease, stage 3a Coding Level of Care Code Est Pt Level 4 (36345) Diagnoses Stage 3a chronic kidney disease N18.31 Chronic kidney disease stage 3 subtype: stage 3a (GFR 45-59)
--- OUTSIDE RECORDS SUMMARY | 2025-08-26 14:34 | XMS_ITS | Patient Health Record ---
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 melter current use of insulin (Z79.4) Active confirmed Plan Of Treatment Future Test Test Name Order Date COLONOSCOPY 11/26/2015 Insurance Providers Payer Name Payer Address Payer Phone Subscriber Number Group Number Insured Name Patient Relationship to Insured Coverage Start Date Coverage End Date [place]ARE OF [place] [address] [place] [id number] KOJO GALDAMEZ Self - patient is the insured [facility] [address] [place] [phone] [id number] KOJO GALDAMEZ Self - patient is the insured Medical (General) History Medical History History ICD Code colonoscopy 12-04-2004 colon polyp hypertension elevated cholesterol coronary disease with [place] and angioplasty diabetes mellitus Denies CVA,Lung disease,renal disease Surgical History Surgery Date(Month/Year) angioplasty
== END 2025-08-26 11:42 | disposition home or self-care (01) ==
LOC: HO.HKA 11:25
PROVIDERS: PCP Internal Medicine; Visit Provider Internal Medicine Hypertension Specialist
DX: N18.31 Chronic kidney disease, stage 3a (principal)
CPT/HCPCS: 99214

== ENCOUNTER → 2025-08-26 11:25 | Outpatient (BNVA) | payer OTHER, SELFPAY | PROVIDERS: PCP Internal Medicine; Visit Provider Internal Medicine Hypertension Specialist | DX: I12.9 Hypertensive chronic kidney disease with stage 1 through stage 4 chronic kidney disease, or unspecified chronic kidney disease (principal); E11.22 Type 2 diabetes mellitus with diabetic chronic kidney disease; N18.31 Chronic kidney disease, stage 3a; Z87.891 Personal history of nicotine dependence; Z79.4 Long term (current) use of insulin; Z79.85 Long-term (current) use of injectable non-insulin antidiabetic drugs; Z79.84 Long term (current) use of oral hypoglycemic drugs | CPT/HCPCS: 99212 ==

== ENCOUNTER 2025-09-02 07:54 | Outpatient (AMB) | payer OTHER, SELFPAY ==
--- OUTSIDE RECORDS SUMMARY | 2025-08-29 11:00 | XMS_ITS | Encounter Summary ---
Author Organization [facility] Address [address] [place] [address] Care Team Providers Care Fraud Manager Name Role Phone Rose Mary Mcneill MD Primary Care Provider [phone] Reason for Visit * Reason Comments Consult Diabetic Foot Exam - Tinea Unguim * Consultation (Routine) - Closed Specialty Diagnoses / Procedures Referred By Jason powers Referred To Contact Podiatry / Orthopaedic Surgery Diagnoses Type 2 diabetes mellitus with hyperglycemia (CMS/HCC V24, CMS/HCC V28) Tinea unguium Rose Mary Mcneill MD [address] [place], [place] [address], [address] Physician [facility] D/B/A: [facility] [place], [place] Phone: tel: fax: Yuri Chaney DPM [address] [address] Phone: tel:[phone] fax:[phone] Referral ID Status Reason Start Date Expiration Date V isits Requested Visits Authorized [id number] Closed Specialty Services Required 05/22/2025 05/22/2026 1 1 Encounter Details Date Type Department Care Team (Late st Contact Info) Description 08/29/2025 11:00 AM EST Consult Orthopedic Surgery - [place] [address] [address] [facility] [address] [place] [address] Yrui Chaney DPM [address] [address] Controlled type 2 diabetes with neuropathy (CMS/HCC V24, CMS/HCC V28) (Primary Dx); Arthritis of both feet; Hammertoes of both feet; Dermatophytosis, nail Social History Tobacco Use Types Packs/Day Years Used Date Smoking Tobacco: Never Assessed Sex and Gender Information Value Date Recorded Sex Assigned at Not on file Legal Sex Male 8:02 AM EDT Gender Identity Not on file Sexual Orientation Not on file documented as of this encounter Last Filed Vital Signs Vital Sign Reading Time Taken Comments Blood Pressure - - Pulse - - Temperature - - Respiratory Rate - - Oxygen Saturation - - Inhaled Oxygen Concentration - - Weight 71.7 kg (158 lb) 08/29/2025 10:35 AM EST Height 165.1 cm (5' 5 ) 08/29/2025 10:35 AM EST Body Mass Index 26.29 08/29/2025 10:35 AM EST documented in this encounter Ordered Prescriptions Prescription Sig Dispense Quantity Refills Last Filled Start Date End Date ciclopirox (PENLAC) 8 % solution Apply topically at bedtime. Apply over nail and surrounding skin. Apply daily over previous coat. After seven (7) days, may remove with alcohol and continue cycle. 6.6 mL 08/29/2025 documented in this encounter Progress Notes * Yuri Chaney DPM - 08/29/2025 11:00 AM EST Referring MD: Rose Mary Mcneill MD Last PCP visit: 06/12/2025 IDENTIFIER: Lauro is a 75 y.o. year old male who presents for consultation. CC: Bilateral foot pain HPI: Patient presents to office today for initial diabetic foot evaluation as recommended by their primary care physician. Patient states that they have been diabetic for the past few years and has some tingling numbness to the feet Denies any history of ulceration, or infection. Patient would like to inquire about their pedal hygiene, as their toenails have become elongated and painful. Patient is not using antifungals at this time. Patient is wearing good supportive shoes at this time. Patient reports mild calluses that are becoming bothersome. Patient with minimal other pedal complaints at this time. Patient's FBS this AM was 125 Recent A1C is %. 6.9 ROS: GENERAL: Pt denies nausea, fever, vomiting, chills, or shortness of breath. Pt in NAD. CARDIOLOGY: pt denies chest pain, palpitations LUNGS: pt denies shortness of breath MUSCULOSKELETAL: See HPI, otherwise no joint pain or swelling, back pain, or muscle pain. SKIN: see HPI, otherwise no lesions, rash or itching NEURO: No persistent headache, weakness or numbness The remainder of the review of systems is noncontributory PAST MEDICAL HISTORY: Problem List[1] SOCIAL HISTORY: Social History Tobacco Use Smoking status: Not on file Smokeless tobacco: Not on file Substance Use Topics Alcohol use: Not on file ACTIVE MEDICATIONS: Medications Taking[2] ALLERGIES: Gabapentin PHYSICAL EXAM: Height 1.651 m (65 ), weight 71.7 kg (158 lb). PODIATRIC EXAMINATION: GENERAL: Patient appears well nourished, with NAD. VASCULAR: Dorsalis pedis pulses are 1/4 bilaterally and Posterior tibial pulses are 2/4 bilaterally. Capillary filling time within normal limits the digits. No pallor on elevation or rubor on dependency. Positive hair growth. No varicosities. Denies rest pain or claudication pain. NEUROLOGICAL: Sharp/dull sensation intact, protective sensation intact on [place]. Peripheral neuropathy throughout the feet bilaterally. ORTHOPEDIC: Good muscle strength 5/5 of all flexors and extensors. Dorsi flexion of ankle ,10 degrees, plantar flexion WNL. No muscle atrophy. Dorsal excesses of the midtarsal joint with arthritic changes to multiple areas. Notable contractures of digits 2 through 5 DERMATOLOGICAL:.No masses or skin lesions noted. Normal skin temperature, normal skin turgor. Nailsare elongated dystrophic discolored x 10 with single debris BIOMECHANICS: STJ ROM wnl, MTJ ROM wnl, 1st MPJ ROM wnl. IMPRESSION: 1. Controlled type 2 diabetes with neuropathy (CMS/HCC V24, CMS/HCC V28) 2. Arthritis of both feet 3. Hammertoes of both feet 4. Dermatophytosis, nail PLAN: Pt was seen and examined, history reviewed. Patient educated on the importance of good pedal hygiene and tight blood glucose control. Patient encouraged to maintain a healthy lifestyle with a well-balanced diet. Patient should never go barefoot and wear supportive shoe gear. Patient should aim for A1c less than 7% every month. Continue with regular appointments with PMD or geospatial extractor analysis for tight medical management Patient with symptoms of arthritic changes in the pedal joints. Patient showed good understanding of etiology of arthritis. Patient is aware that conservative options include padding, over the counter products, orthotics, and shoes. Patient aware that they are other treatments available such as oral anti- inflammatories, injections, and steroid dose packs. Patient understands that these measures are conservative measures to help handle the osteoarthritic flares. Patient found to have contracted and hammered digits of bilateral forefoot. Due to patients currentage and activity level, will continue with conservative management of these deformities. There are devices will help reduce chance of irritation, pressure points, blisters, and/or infection. Nail debridement performed to nails 1-5 bilateral as nails were described to be causing pain and difficulty for walking while in shoegear at their previous length. They were debrided in thickness andlength, with no incident. Clinical evidence of mycosis is documented which required active treatment. Patient expressed immediate relief. Patient is to RTC in 9 weeks Patient educated on the proper way to apply antifungal topical treatment. Patient is to apply a layer of the medication to the entire nail unit daily. Patient is to take nail maori remover and/or alcohol, once a month, and clean the bases of the nails. Patient is take a nail file and thin the top layers of the nails once monthly. Patient educated on how to monitor the growth of the new nail by examining the nail bases. Patient will return to office in 3 months for re-evaluation of the nails and new photograph to monitor progression. All questions answered at this time. Yuri Chaney DPM [1] There is no problem list on file for this patient. [2] Outpatient Medications Marked as Taking for the 08/29/25 encounter (Consult) with Yuri Chaney DPM Medication Sig Dispense Refill acetaminophen (TYLENOL) 500 mg tablet Take 1 tablet (500 mg total) by mouth every 6 (six) hours if needed for mild pain. albuterol 2.5 mg /3 mL (0.083 %) nebulizer solution Take 3 mL (2.5 mg total) by nebulization every 6 (six) hours if needed for wheezing. albuterol HFA (PROAIR HFA ; PROVENTIL HFA ; VENTOLIN HFA) 90 mcg/actuation inhaler Inhale 2 puffs by mouth every 6 (six) hours if needed for wheezing. amLODIPine (NORVASC) 10 mg tablet Take by mouth 1 (one) time each day. atorvastatin (LIPITOR) 40 mg tablet Take 1 tablet (40 mg total) by mouth at bedtime. cholecalciferol (VITAMIN D-3) 25 mcg (1,000 unit) tablet Take 25 tablets (25,000 Units total) by mouth 1 (one) time each day. empagliflozin (JARDIANCE) 25 mg tablet Take 1 tablet (25 mg total) by mouth 1 (one) time each day in the morning. fluticasone HFA (FLOVENT HFA) 110 mcg/actuation inhaler Inhale 1 puff by mouth 2 (two) times a day.Rinse mouth with water after use to reduce aftertaste and incidence of candidiasis. Do not swallow. gabapentin (NEURONTIN) 100 mg capsule Take 1 capsule (100 mg total) by mouth 3 (three) times a day. glucose blood test strip 1 each by Other route if needed. Use as instructed INSULIN DEGLUDEC SUBQ Inject 20 Units under the skin. insulin lispro 100 unit/mL injection Inject 6 Units under the skin 3 (three) times a day before meals. -Administer within 15 minutes of a meal lancets lancets 1 each by Other route if needed. Use as instructed losartan (COZAAR) 100 mg tablet Take 1 tablet (100 mg total) by mouth 1 (one) time each day. metFORMIN (FORTAMET) 500 mg 24 hr tablet Take 1 tablet (500 mg total) by mouth 1 (one) time each day with dinner. Do not crush, chew, or split. metoprolol succinate (TOPROL-XL) 100 mg 24 hr tablet Take 1 tablet (100 mg total) by mouth 1 (one) time each day. Do not crush or chew. nebulizers misc semaglutide (Ozempic) 1 mg/dose (4 mg/3 mL) injection pen Inject 1 mg under the skin every 7 (seven) days. documented in this encounter Plan of Treatment Upcoming Encounters Date Type Department Care Team (Late st Contact Info) Description 11/28/2025 1:00 PM EST Office Visit Orthopedic Surgery - [place] [address] [address] Yuri Chaney DPM [address] [address] documented as of this encounter Visit Diagnoses Diagnosis Controlled type 2 diabetes with neuropathy ([facility] V24, [facility] V28)- Primary Type II or unspecified type diabetes mellitus with neurological manifestations, not stated as uncontrolled Arthritis of both feet Hammertoes of both feet Dermatophytosis, nail Dermatophytosis of nail documented in this encounter Historical Medications * This list may reflect changes made after this encounter. albuterol HFA (PROAIR HFA ; PROVENTIL HFA ; VENTOLIN HFA) 90 mcg/actuation inhaler Inhale 2 puffs by mouth every 6 (six) hours if needed for wheezing. semaglutide (Ozempic) 1 mg/dose (4 mg/3 mL) injection pen Inject 1 mg under the skin every 7 (seven) days. nebulizers misc metoprolol succinate (TOPROL-XL) 100 mg 24 hr tablet Take 1 tablet (100 mg total) by mouth 1 (one) time each day. Do not crush or chew. metFORMIN (FORTAMET) 500 mg 24 hr tablet Take 1 tablet (500 mg total) by mouth 1 (one) time each day with dinner. Do not crush, chew, or split. losartan (COZAAR) 100 mg tablet Take 1 tablet (100 mg total) by mouth 1 (one) time each day. lancets lancets 1 each by Other route if needed. Use as instructed insulin lispro 100 unit/mL injection Inject 6 Units under the skin 3 (three) times a day before meals. -Administer within 15 minutes of a meal INSULIN DEGLUDEC SUBQ Inject 20 Units under the skin. gabapentin (NEURONTIN) 100 mg capsule Take 1 capsule (100 mg total) by mouth 3 (three) times a day. fluticasone HFA (FLOVENT HFA) 110 mcg/actuation inhaler Inhale 1 puff by mouth 2 (two) times a day. Rinse mouth with water after use to reduce aftertaste and incidence of candidiasis. Do not swallow. empagliflozin (JARDIANCE) 25 mg tablet Take 1 tablet (25 mg total) by mouth 1 (one) time each day in the morning. cholecalciferol (VITAMIN D-3) 25 mcg (1,000 unit) tablet Take 25 tablets (25,000 Units total) by mouth 1 (one) time each day. glucose blood test strip 1 each by Other route if needed. Use as instructed atorvastatin (LIPITOR) 40 mg tablet Take 1 tablet (40 mg total) by mouth at bedtime. amLODIPine (NORVASC) 10 mg tablet Take by mouth 1 (one) time each day. albuterol 2.5 mg /3 mL (0.083 %) nebulizer solution Take 3 mL (2.5 mg total) by nebulization every 6 (six) hours if needed for wheezing. acetaminophen (TYLENOL) 500 mg tablet Take 1 tablet (500 mg total) by mouth every 6 (six) hours if needed for mild pain. added in this encounter Orders Outpatient Referral Count Last Ordered Date Fir st Ordered Date AMB REFERRAL TO PODIATRY 1 08/29/2025 documented in this encounter Care Teams Fraud Manager Relationship Specialty Start Date End Date Rose Mary Mcneill MD [address] [place] [address] , [address] [facility] D/B/A: [facility] [place] PCP - General Internal Medicine 05/22/25 documented as of this encounter
--- OUTSIDE RECORDS SUMMARY | 2025-09-02 07:59 | XMS_ITS | Clinical Summary ---
Author Organization [address] [facility] Address [address] [place] [address] Phone Care Team Providers Care Back Facer Name Role Phone Rose Mary Mcneill MD Primary Care Provider [phone] Allergies Active Allergy Reactions Criticality Noted Date Comments Gabapentin Itching 08/29/2025 Medications acetaminophen (TYLENOL) 500 mg tablet Take 1 tablet (500 mg total) by mouth every 6 (six) hours if needed for mild pain. Active albuterol 2.5 mg /3 mL (0.083 %) nebulizer solution Take 3 mL (2.5 mg total) by nebulization every 6 (six) hours if needed for wheezing. Active amLODIPine (NORVASC) 10 mg tablet Take by mouth 1 (one) time each day. Active atorvastatin (LIPITOR) 40 mg tablet Take 1 tablet (40 mg total) by mouth at bedtime. Active glucose blood test strip 1 each by Other route if needed. Use as instructed Active cholecalciferol (VITAMIN D-3) 25 mcg (1,000 unit) tablet Take 25 tablets (25,000 Units total) by mouth 1 (one) time each day. Active empagliflozin (JARDIANCE) 25 mg tablet Take 1 tablet (25 mg total) by mouth 1 (one) time each day in the morning. Active fluticasone HFA (FLOVENT HFA) 110 mcg/actuation inhaler Inhale 1 puff by mouth 2 (two) times a day. Rinse mouth with water after use to reduce aftertaste and incidence of candidiasis. Do not swallow. Active gabapentin (NEURONTIN) 100 mg capsule Take 1 capsule (100 mg total) by mouth 3 (three) times a day. Active INSULIN DEGLUDEC SUBQ Inject 20 Units under the skin. Active insulin lispro 100 unit/mL injection Inject 6 Units under the skin 3 (three) times a day before meals. -Administer within 15 minutes of a meal Active lancets lancets 1 each by Other route if needed. Use as instructed Active losartan (COZAAR) 100 mg tablet Take 1 tablet (100 mg total) by mouth 1 (one) time each day. Active metFORMIN (FORTAMET) 500 mg 24 hr tablet Take 1 tablet (500 mg total) by mouth 1 (one) time each day with dinner. Do not crush, chew, or split. Active metoprolol succinate (TOPROL-XL) 100 mg 24 hr tablet Take 1 tablet (100 mg total) by mouth 1 (one) time each day. Do not crush or chew. Active nebulizers misc Acti ve semaglutide (Ozempic) 1 mg/dose (4 mg/3 mL) injection pen Inject 1 mg under the skin every 7 (seven) days. Active albuterol HFA (PROAIR HFA ; PROVENTIL HFA ; VENTOLIN HFA) 90 mcg/actuation inhaler Inhale 2 puffs by mouth every 6 (six) hours if needed for wheezing. Active ciclopirox (PENLAC) 8 % solution Apply topically at bedtime. Apply over nail and surrounding skin. Apply daily over previous coat. After seven (7) days, may remove with alcohol and continue cycle. 6.6 mL 11/27/19 26 Active Encounters Date Type Department Care Team Description 08/29/2025 11:00 AM EST Consult Orthopedic Surgery - [address] [address] Yuri Chaney, DONNY Controlled type 2 diabetes with neuropathy (CMS/HCC V24, CMS/HCC V28) (Primary Dx); Arthritis of both feet; Hammertoes of both feet; Dermatophytosis, nail from Last 3 Months Medical History Medical History Date Comments Coronary artery disease Hypertension Hyperlipidemia Chronic kidney disease Secondary hyperparathyroidism (CMS/HCC V24) Anemia of chronic disease Type II or unspecified type diabetes mellitus with renal manifestations, uncontrolled(250.42) (CMS/HCC V24, CMS/HCC V28) Long-term insulin use in type 2 diabetes (CMS/HC C V24, CMS/HCC V28) Tinea unguium Peripheral vascular disease, unspecified (CMS/HC C V24) Social History Tobacco Use Types Packs/Day Years Used Date Smoking Tobacco: Never Assessed Sex and Gender Information Value Date Recorded Sex Assigned at Not on file Legal Sex Male 8:02 AM EDT Gender Identity Not on file Sexual Orientation Not on file Obstetrics History Last Filed Vital Signs Vital Sign Reading Time Taken Comments Blood Pressure - - Pulse - - Temperature - - Respiratory Rate - - Oxygen Saturation - - Inhaled Oxygen Concentration - - Weight 71.7 kg (158 lb) 08/29/2025 10:35 AM EST Height 165.1 cm (5' 5 ) 08/29/2025 10:35 AM EST Body Mass Index 26.29 08/29/2025 10:35 AM EST Plan of Treatment Upcoming Encounters Date Type Department Care Team (Late st Contact Info) Description 11/28/2025 1:00 PM EST Office Visit Orthopedic Surgery - [place] [address] [address] Yuri Chaney, DONNY [address] [address] Health Maintenance Due Date Last Done Comments Colorectal Cancer Screening: Colonoscopy 1950 Diabetes: Annual Foot Exam 1960 Diabetes: Annual Retina Eye Exam 1960 Diabetes: Annual GFR (Glomerular Filtration Rate) 08/31/2023 08/31/2022 Depression Screening 10/24/2024 RSV Immunization Adult Patients (1 - 1-dose 75+ series) 2025 Abdominal Aortic Aneurysm (AAA) Screen 05/22/2025 Cholesterol Screening (Lipid Panel) 05/22/2025 Falls Risk Assessment 05/22/2025 Hepatitis C Screening 05/22/2025 Social Influencers of Health Screening 05/22/2025 Influenza Vaccine (#1) 2025 , 09/08/2023, 08/03/2022, Additional history exists Diabetes: Annual Urine Albumin-Creatinine Ratio (uACR) 08/29/2025 Diabetes: Blood Sugar Control Test (HGBA1C) 08/29/2025 Hypertension/CHF/CAD Annual BMP Blood Test 08/29/2025 08/31/2022 Zoster Vaccines (2 of 2) 08/31/2025 07/06/2025 COVID-19 Vaccine ( season) 2026 07/06/2025, 11/06/2021, 02/14/2021, Additional history exists DTaP,Tdap,and Td Vaccines (3 - Td or Tdap) 02/14/2028 02/13/2018, 05/16/2014 Pneumococcal Vaccine: 50+ Years Completed 01/21/2025 HIB Vaccines Aged Out No longer eligi [...] to complete this topic RSV Immunization Patients Under 20 months Aged Out No longer eligible based on patient's age to complete this topic Varicella Vaccines Aged Out No longer eligible based on patient's age to complete this topic Insurance [facility] [place] [id number] Care Teams Back Facer Relationship Specialty Start Date End Date Rose Mary Mcenill MD [address] [place] [address] , [address] [facility] [place], [place] PCP - General Internal Medicine 05/22/25
--- OUTSIDE RECORDS SUMMARY | 2025-09-02 07:59 | XMS_ITS | Patient Health Record ---
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 (Z79.4) Active confirmed Plan Of Treatment Future Test Test Name Order Date COLONOSCOPY 11/26/2015 Insurance Providers Payer Name Payer Address Payer Phone Subscriber Number Group Number Insured Name Patient Relationship to Insured Coverage Start Date Coverage End Date MEDICARE OF [place] [address] [place] [id number] KOJO GALDAMEZ Self - patient is the insured [facility] [address] [place] [id number] KOJO GALDAMEZ Self - patient is the insured Medical (General) History Medical History History ICD Code colonoscopy 12-04-2004 colon polyp hypertension elevated cholesterol coronary disease with CA and angioplasty diabetes mellitus Denies CVA,Lung disease,renal disease Surgical History Surgery Date(Month/Year) angioplasty
--- OUTSIDE RECORDS SUMMARY | 2025-09-02 07:59 | XMS_ITS | Clinical Summary ---
Author Organization [facility] Address [address] [place] [address] [place] [address] Phone Care Team Providers Care Tax Services Professional Name Role Phone Rose Mary Jones MD Primary Care Provider [phone] Allergies No known active allergies Medications albuterol [...] patient's age to complete this topic Insurance [facility] ([id number]) [facility] ([id number]) Care Teams Tax Services Professional Relationship Specialty Start Date End Date Rose Mary Jones MD [address] [place] PCP - General 11/03/20
--- NOTE | 2025-09-02 08:23 | MHC.PC.OV ---
Vital Signs 09/02/25 08:24 Height 5 ft 5 in Weight 152 lb 8 oz BMI 25.4 BP 132/78 Blood Pressure Location Lt brachial Position Sitting Pulse 74 Pulse Source Pulse Oximeter Temp 97.3 F Temp Source Temporal Artery Scan Pulse Oximetry (%) 98 Oxygen Delivery Method Room Air Intake Visit Reasons: dm Intake Note: Patient here for an annual physical exam Tin Stacker Required: No Accompanied by: Self / Same As Patient Allergies gabapentin Allergy (Mild, Verified 09/02/25 08:51) Itching Medication List - Last Reconciled 09/02/25 by Rose Mary Mcneill MD acetaminophen (Tylenol Extra Strength) 500 mg PO Q6H PRN albuterol sulfate 2.5 mg (3 mL) inhalation Q4-6H PRN amlodipine 5 mg PO DAILY aspirin mg PO atorvastatin 40 mg PO DAILY 90 days blood sugar diagnostic (Yamsafer Verio test strips) test twice per day blood-glucose meter (Yamsafer Verio Flex Start kit) test twice per day blood-glucose sensor (FreeStyle Jarrod 3 Plus Sensor device) Use daily As directed to monitor glucose blood-glucose sensor (FreeStyle Jarrdo 3 Sensor device) Apply every 14 days As directed to monitor blood glucose blood-glucose,case monitor,cont (FreeStyle Jarrod 3 Graham) Use daily As directed to monitor blood glucose cholecalciferol (vitamin D3) 25 mcg PO DAILY 90 days ciclopirox 8% 1 appl topical BEDTIME 30 days clopidogrel 75 mg PO DAILY colchicine 0.6 mg PO BID cyclobenzaprine 10 mg PO TID PRN empagliflozin (Jardiance) 25 mg PO DAILY 90 days fluticasone propionate 110 mcg/actuation (Flovent HFA) 1 puff PO BID 30 days glucose (Dex4 Glucose) 16 grams (4 x 4 gram) PO Q15M PRN insulin degludec (Tresiba FlexTouch U-200 insulin) 10 units (0.05 mL) subcut DAILY insulin lispro (Humalog KwikPen (U-100) Insulin) 4 units (0.04 mL) subcut TID lancets test twice per day losartan 100 mg PO DAILY 90 days metformin 500 mg PO BID 90 days metoprolol succinate ER 200 mg PO DAILY nebulizers As directed ondansetron 4 mg PO TID PRN 5 days pantoprazole 40 mg PO DAILY pen needle, diabetic (1st Tier Unifine Pentips) Use 1 pen needle once a da tirzepatide (Mounjaro) 2.5 mg (0.5 mL) subcut QWEEK Ventolin HFA 90 mcg/actuation (albuterol sulfate) 2 puffs inhalation Q6H PRN 30 days NS Tobacco use date assessed: 09/02/25 Fall risk assessment: No Falls in past year Last assessed Fall Risk: 04/29/25 Dental Screening Dental Screen Date: 09/02/25 Did you have a dental visit in the last 12 months?: No Did you have a dental problem in the last 6 months where you did not have access to dental care?: No Was dental information given to patient?: Patient has dentist HPI HPI Comments History of Present Illness Details The patient is a 75-year-old male presenting for management of multiple chronic conditions. His recent hemoglobin A1c was 7.2%, which is noted to be near the goal of 7.0%. The patient is followed by endocrinology. The patient has a history of chronic kidney disease, stage 3, with a recent GFR of 45, which is stable from a prior GFR of 47. 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 His LDL cholesterol is at goal, measuring less than 70 mg/dL. He is currently undergoing cardiac rehabilitation and has been seen by cardiology. He denies any recent chest pain or shortness of breath. The patient has a reported allergy to gabapentin. His current medications include Tylenol as needed, an albuterol inhaler for asthma as needed, vitamin D which has normalized his levels, colchicine twice daily, cyclobenzaprine 10 mg as needed for muscle spasms, Jardiance 25 mg, Tresiba 10 units, Humalog 6 units three times a day, Losartan, Ondansetron as needed for nausea, pantoprazole, and Mounjaro 2.5 mg weekly. He reports having issues with constipation. [facility] Medical History (Updated 09/02/25 @ 13:02 by Rose Mary Mcneill MD) Myocardial infarction Arthritis Pulmonary nodule Cavitary pneumonia MRSA bacteremia Hypovitaminosis D Former smoker Hyperparathyroidism Annual physical exam CAD (coronary artery disease) Former smoker Obese Microalbuminuria CKD (chronic kidney disease) stage 3, GFR 30-59 ml/min long term care pharmacist (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 Son No problems noted. Son No problems noted. Son No problems noted. Social History Household Members: Spouse Housing: Apartment Are you a primary hospice care transitions coordinator to a significant other at home: No Do you presently have visiting nurse or other home services: Yes Alcohol intake: former Patient Tobacco Use Status: Former Tobacco user Tobacco use type: Cigarette e-Cigarette/Vaping Use: Never Used Second Hand Smoke Exposure: No Advance Directives Date on File: 07/30/20 service: No Current occupational status: retired Cognitive needs: No Hearing needs: No Vision needs: Yes (Glasses) Questionnaire PHQ-9 Over the last 2 weeks, how often have you been bothered by any of the following problems? 1. Little interest or pleasure in doing things: not at all 2. Feeling down, depressed, or hopeless: not at all 3. Trouble falling or staying asleep, or sleeping too much: not at all 4. Feeling tired or having little energy: not at all 5. Poor appetite or overeating: not at all 6. Feeling bad about yourself - or that you are a failure or have let yourself or your family down: not at all 7. Trouble concentrating on things, such as reading the newspaper or watching television: not at all 8. Moving or speaking so slowly that other people could have noticed. Or the opposite - being so fidgety or restless that you have been moving around a lot more than usual: not at all 9. Thoughts that you would be better off or of hurting yourself in some way: not at all Total score: 0 Depression Screening Interpretation: Negative Depression Screening Done: Yes 44122 - PHQ-9 Billing: Yes Source: Developed by Drs. Jose Mandujano, Yamel Weaver, Adrian Dee and colleagues, with an educational barry from [facility]. Thrive Questionnaire Date Thrive assessed: 04/29/25 I am a: Patient What is your living situation today?: I have a steady place to live Within the past 12 months, did the food you bought not last and you didn't have the money to get more?: Never true Within the past 12 months, did you worry whether your food would run out before you got money to buy more?: Never true Do you have trouble paying for medicines?: No Do you have trouble getting transportation to medical appointments?: No Do you have trouble paying your heating and electricity bill?: No Do you have trouble taking care of your child, family member or friend?: No Do you have trouble with day-to-day activities such as bathing, preparing meals, shopping, managing finances, etc.?: No Are you currently unemployed and looking for a job?: No Are you interested in more education?: No Please select the resources that you would like help with: None Currently or been in a relationship where the following occur: No concerns reported THRIVE Score: 0 AUDIT C Alcohol Use Questionnaire (AUDIT-C) 1. How often do you have a drink containing alcohol?: Never Total Score: 0 Score Reviewed/Action Taken: No DAX-7 AMB Questionnaire DAX-7 Date DAX - 7 assessed: 04/29/25 Feeling nervous, anxious, or on edge: 0 = Not at all Not being able to stop or control worryin = Not at all Worrying too much about different things: 0 = Not at all Trouble relaxin = Not at all Being so restless that it is hard to sit still: 0 = Not at all Becoming easily annoyed or irritable: 0 = Not at all Feeling afraid as if something awful might happen: 0 = Not at all Total DAX-7 score (0-4 normal; 5-9 mild; 10-14 moderate; 15-21 severe): 0 Source: Developed by Drs. Jose Mandujano, Yamel Weaver, Adrian Dee and colleagues, with an educational barry from [facility]. DAX-7 Assessment Billing DAX-7 Assessment Tool: DAX-7 Assessment 56401 Review of Systems Const All systems reviewed & are unremarkable except as noted in HPI and below ENT Denies sinus pain Card Denies chest pain at rest, Denies chest pain with activity, Denies edema, Denies irregular heart rhythm, Denies claudication, Denies dyspnea, Denies dyspnea on exertion, Denies orthopnea, Denies paroxysmal nocturnal dyspnea and Denies slow heart rate Resp Denies cough, Denies dyspnea and Denies dyspnea on exertion Physical exam (Primary Care) Vital Signs: Last Vital Signs Temp 97.3 F 09/02/25 08:24 Pulse 74 09/02/25 08:24 BP 132/78 09/02/25 08:24 Pulse Ox 98 09/02/25 08:24 Oxygen Delivery Method Room Air 09/02/25 08:24 BMI result Body Mass Index 25.4 Tobacco/Smoking Status: Tobacco use Status Tobacco use date assessed 09/02/25 09/02/25 08:26 Patient Tobacco Use Status Former Tobacco user 09/02/25 08:23 Tobacco use type Cigarette 09/02/25 08:23 e-Cigarette/Vaping Use Never Used 09/02/25 08:23 PHQ-9: PHQ-9 Score PHQ-9: Total score 0 09/02/25 09:06 Depression Screening Interpretation: Negative Thrive Assessment: Date of Thrive Assessment Date Thrive assessed 04/29/25 09/02/25 08:23 Currently or been in a relationship where the following occur: No concerns reported Resp Effort & Inspection: normal respiratory effort Auscultation: clear to auscultation bilaterally Cardio Jugular venous distension: no JVD Rate: regular rate Rhythm: regular rhythm Heart sounds: S1 normal heart sound present and S2 normal heart sound present Extrem General: Yes full ROM Office Procedures Flu Questionnaire Does the patient have a severe egg allergy?: No Does the patient have severe life threatening allergies?: No Does the patient have a fever or illness today?: No Has the patient ever had Guillain-Yoakum Syndrome?: No Has the patient ever had any past reaction to a flu shot?: No Immunizations Fluarix [id number] (PF) 45 mcg (15 mcg x 3)/0.5 mL IM syringe Performing Provider: Rose Mary Mcneill MD [facility] [place] Administered by: Shanda Yoo CMA on 09/02/25 09:05 Dose Route Admin Location Dispensed Lot Number Expiration Date [facility] Publishing Systems Analyst 0.5 mL IM Left Deltoid 0.5 mL [id number] 04/22/26 [id number] [employer]ogen VIS Given Date VIS Provided VIS Publication Date 09/02/25 Single Vaccine 24 Eligibility Eligibility Date Funding Source Not [facility] Eligible 09/02/25 Private Coding Level of Care Code Est Pt Level 4 (94743) Complex EM visit Add On G2211 Diagnoses PAD (peripheral artery disease) I73.9 Essential hypertension I10 Hyperparathyroidism E21.3 Uncontrolled type 2 diabetes mellitus with hyperglycemia, with long-term current use of insulin E11.65; Z79.4 Stage 3a chronic kidney disease N18.31 Chronic kidney disease stage 3 subtype: stage 3a (GFR 45-59) Chronic idiopathic constipation K59.04 Additional Codes DAX-7 Assessment Billing - DAX-7 Assessment Tool: DAX-7 Assessment 97664 ([id number]) PHQ-9 - 37879 - PHQ-9 Billing: Yes ([id number]) Time Spent (min) 22 Assessment & Plan Assessment & Plan (1) PAD (peripheral artery disease): Code(s): I73.9 - Peripheral vascular disease, unspecified Category: Medical (2) Essential hypertension: Code(s): I10 - Essential (primary) hypertension Category: Medical (3) Hyperparathyroidism: Comment: Patient has chronic kidney disease stage 3 and this is most likely secondary hyperparathyroidism. Code(s): E21.3 - Hyperparathyroidism, unspecified Category: Medical (4) Uncontrolled type 2 diabetes mellitus with hyperglycemia, with long-term current use of insulin: Code(s): E11.65 - Type 2 diabetes mellitus with hyperglycemia; Z79.4 - long term care pharmacist (current) use of insulin Category: Medical (5) CKD (chronic kidney disease) stage 3, GFR 30-59 ml/min: Code(s): N18.30 - Chronic kidney disease, stage 3 unspecified Category: Medical Qualifiers: Chronic kidney disease stage 3 subtype: stage 3a (GFR 45-59) Qualified Code(s): N18.31 - Chronic kidney disease, stage 3a (6) Chronic idiopathic constipation: Code(s): K59.04 - Chronic idiopathic constipation Category: Medical Plan Plan 1. Type 2 Diabetes Mellitus The patient's hemoglobin A1c is 7.2%, which is close to the goal of 7%. He will continue his current medications, including Jardiance, Tresiba, Humalog, and Mounjaro. He will continue to follow up with endocrinology. 2. Chronic Kidney Disease, Stage 3 The patient has stage 3 chronic kidney disease with a stable GFR of 45 mL/min/1.73m?. He will continue to follow up with his chainstitch sewing machine operator. 3. Constipation The patient reports problems with constipation, and a new medication will be prescribed to address this. 4. Asthma A prescription for his asthma inhaler will be sent for as-needed use. 5. Peripheral arterial disease Follow-up with vascular surgery. Orders: Orders Microalbumin, Random (w Creat) 4 Months R80.9 - Proteinuria, unspecified Complete Blood Count Auto Diff 4 Months D64.9 - Anemia, unspecified Vitamin D 25-OH Total 4 Months E55.9 - Vitamin D deficiency, unspecified Comprehensive Hiram. Panel Fast 4 Months E11.65 - Type 2 diabetes mellitus with hyperglycemia, Z79.4 - long term care pharmacist (current) use of insulin Influenza [id number] Immunization Today Z23 - Encounter for immunization Lipid Panel 4 Months E78.5 - Hyperlipidemia, unspecified IRON PROFILE 4 Months D64.9 - Anemia, unspecified Medications: New sennosides (Senna Lax) 8.6 mg PO BEDTIME PRN 90 tabs 0RF constipation 90 days budesonide-formoterol 80-4.5 mcg/actuation 1 inh inhalation BID 10.2 grams 6RF 30 days
[2025-09-02 08:24] VITALS: BP 132/78; PULSE 74; TEMP 36.3; O2SAT 98; BMI 25.4
== END 2025-09-02 09:10 | disposition home or self-care (01) ==
LOC: HO.HMCH 07:54
PROVIDERS: PCP Internal Medicine; Visit Provider Internal Medicine
DX: I73.9 Peripheral vascular disease, unspecified (principal); I10 Essential (primary) hypertension; E21.3 Hyperparathyroidism, unspecified; E11.65 Type 2 diabetes mellitus with hyperglycemia; Z79.4 Long term (current) use of insulin; N18.31 Chronic kidney disease, stage 3a; K59.04 Chronic idiopathic constipation; Z23 Encounter for immunization

== ENCOUNTER → 2025-09-02 07:54 | Outpatient (BNVA) | payer OTHER, SELFPAY | PROVIDERS: PCP Internal Medicine; Visit Provider Internal Medicine | DX: I10 Essential (primary) hypertension (principal); I73.9 Peripheral vascular disease, unspecified; E21.3 Hyperparathyroidism, unspecified; N18.31 Chronic kidney disease, stage 3a; E11.65 Type 2 diabetes mellitus with hyperglycemia; Z79.4 Long term (current) use of insulin; Z13.31 Encounter for screening for depression; Z23 Encounter for immunization | CPT/HCPCS: 90471; 90656; 96127; 99212 ==

== ENCOUNTER 2025-09-16 09:31 | Outpatient (AMB) | payer OTHER, SELFPAY ==
--- NOTE | 2025-09-16 09:53 | A.OFFVIS_ITS ---
Intake Intake Visit Reasons: 30 min Starch Dumper Required: Yes Starch Dumper Language: Quality Assurance Inspector Services: Starch Dumper Offered & Declined Accompanied by: Self / Same As Patient Allergies gabapentin Allergy (Mild, Verified 09/02/25 08:51) Itching HPI Comprehensive Diabetes Asmnt Most Recent Diabetes Results: 2 Hemoglobin A1c 9.0 % 11/02/19 Microalb/Creat Ratio, (<30) 46.0 ug/mg cr H 08/23/25 Cholesterol, (<200) 126 mg/dL 08/23/25 HDL Cholesterol, (>40) 42 mg/dL 08/23/25 Triglycerides, (<150) 122 mg/dL 08/23/25 Creatinine, (0.5-1.4) 1.51 mg/dL H 08/23/25 BUN, (9-16) 19 mg/dL H 08/23/25 Sodium, (135-145) 142 mmol/L 08/23/25 Potassium, (3.3-5.1) 4.3 mmol/L 08/23/25 Chloride, (96-108) 108 mmol/L 08/23/25 Carbon Dioxide, (22-29) 27 mmol/L 08/23/25 Calcium, (8.4-10.2) 9.9 mg/dL Δ 08/23/25 AST, (5-37) 25 U/L 08/23/25 ALT, (0-40) 22 U/L 08/23/25 Total Protein, (6.5-8.0) 7.0 g/dL 08/23/25 Albumin, (3.5-5.0) 4.4 g/dL 08/23/25 [facility] Medical History Myocardial infarction Arthritis Pulmonary nodule Cavitary pneumonia MRSA bacteremia Hypovitaminosis D Former smoker Hyperparathyroidism Annual physical exam CAD (coronary artery disease) Former smoker Obese Microalbuminuria CKD (chronic kidney disease) stage 3, GFR 30-59 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 Son No problems noted. Son No problems noted. Son No problems noted. Social History Household Members: Spouse Housing: Apartment Are you a primary health care legal assistant to a significant other at home: No Do you presently have visiting nurse or other home services: Yes Alcohol intake: former Patient Tobacco Use Status: Former Tobacco user Tobacco use type: Cigarette e-Cigarette/Vaping Use: Never Used Second Hand Smoke Exposure: No Advance Directives Date on File: 07/30/20 service: No Current occupational status: retired Cognitive needs: No Hearing needs: No Vision needs: Yes (Glasses) Assessment & Plan Assessment & Plan (1) Uncontrolled type 2 diabetes mellitus with hyperglycemia, with long-term current use of insulin: Code(s): E11.65 - Type 2 diabetes mellitus with hyperglycemia; Z79.4 - terminal block assembler (current) use of insulin Plan: Learning objectives: The patient was provided with verbal and written education on the following topics as outlined below. Assess patient education level/literacy/barriers, patient's last A1c on 08/19/2025 7.3% At last visit with endocrine PA patient was transitioned from Ozempic to Mounjaro 2.5 mg Patient denies GI side effects after starting Mounjaro Patient is experiencing postprandial hyperglycemia, discussed with patient has some interventions such as reducing carbohydrate portion at meals, making sure you are taking Humalog 6 meal of g 15 minutes prior to meals. Also discussed increasing Mounjaro dose from 2.5 mg to 5 mg. Message sent to provider Patient questions/concerns The patient met all learning objectives and was able to verbalize understanding and provide teach back of education topics discussed . The patient was provided with the opportunity to ask questions and all questions were answered. Topics covered in today?s session included: CGM: Reminded patient that to check finger sticks if symptoms do not match sensor reading. Discussed lag time between finger stick and sensor data.? Patient able to insert sensor independently at home without issue.? Insulin/Injectables (If applicable) * Storage/care of insulin?? * Injection sites? * Site rotation? * Onset, peak, duration * Drawing up insulin? * Injecting insulin/other injectables? * Sharps disposal Continuous blood glucose monitoring (if applicable) Hypoglycemia and Hyperglycemia * Signs and symptoms? * Causes?? * Treatment? * Preventing hypoglycemia? * When to seek medical attention Target Goals: * Blood glucose targets and how you feel when your blood glucose is in and out of your target ranges. * Monitoring and knowing your A1C. * What can make blood glucose go up and down and preventing high and low blood glucose. * Review of blood sugar targets in expected goal range and outside of expected goal range. * Problem solving and preventing hyper/hypoglycemia. ?Patient was receptive to information provided and participated in the discussion. Asked?appropriate questions and demonstrated good understanding of the topics discussed.? ? Educational Materials: The patient was provided with the following written educational materials: Common Kazakh foods handout Smart Goal:? Patient will use rule of 15s to treat hypoglycemia Comprehension of Instructions: Fair Readiness to make changes:? Contemplation How confident they feel about making changes: Positive Portions of this note were created using voice recognition software, please excuse any words or phrases that may have been misinterpreted. Coding Level of Care Code Est Pt Level 1 (84603) Diagnoses Uncontrolled type 2 diabetes mellitus with hyperglycemia, with long-term current use of insulin E11.65; Z79.4
--- OUTSIDE RECORDS SUMMARY | 2025-09-16 10:55 | XMS_ITS | Clinical Summary ---
Author Organization [facility] Address [address] [place] [address] Phone Care Team Providers Care Orthotic Finish Grinding Technician Name Role Phone Rose Mary Jones MD Primary Care Provider [phone] Allergies No known active allergies Medications albuterol [...] patient's age to complete this topic Insurance [facility] ([id number]) [facility] ([id number]) Care Teams Orthotic Finish Grinding Technician Relationship Specialty Start Date End Date Rose Mary Jones MD [address] [place] PCP - General 11/03/20
--- OUTSIDE RECORDS SUMMARY | 2025-09-16 10:55 | XMS_ITS | Clinical Summary ---
Author Organization [facility] Address [address] [place] [address] Phone Care Team Providers Care Yarn Twister Name Role Phone Rose Mary Mcneill MD Primary Care Provider [phone] Allergies Active Allergy Reactions Criticality Noted Date [...] 11:00 AM EST Consult Orthopedic Surgery - [address] [address] Yuri Chaney, DONNY Controlled type [...] PM EST Office Visit Orthopedic Surgery - [place] [address] [address] Yuri Chaney, DONNY [address] [address] Health Maintenance Due Date Last Done Comments [...] patient's age to complete this topic Insurance [facility] [place] [id number] Care Teams Yarn Twister Relationship Specialty Start Date End Date Rose Mary Mcneill MD [address] [place] [address] , [address] [facility] D/B/A: [facility] [place], [place] PCP - General Internal Medicine 05/22/25
--- OUTSIDE RECORDS SUMMARY | 2025-09-16 10:56 | XMS_ITS | Patient Health Record ---
Author Organization [facility] Address [address] [place] [address] Care Team Providers Care Commercial Collector Name Role Phone Nidhi (RETIRED) Vadim KERR Primary Care Provide Richie Smith Jr Unavailable Allergies Allergen (clinical drug ingredient) Drug/Non Drug Allergy documented on EMR Reaction Allergy Type Onset Date Status lisinopril Lisinopril Unknown Drug Allergy Activ e Reason For Referral No Information Medications Medication SIG (Take, Route, Frequency, Duration) Notes Start Date End Date Status Lantus 100 UNIT/ML Solution 1 Subcutaneo us as directed Active ProAir HFA 108 (90 Base) MCG/ACT Aerosol Solution 2 puffs as needed Inhalation every 4 hrs/prn Active Colyte with Flavor Packs 240 GM Solution Reconstituted As directed Orally Over the specified time.; Duration: 1 day(s) 11/26/2015 Active Metoprolol Succinate ER 100 MG Tablet Extended Release 24 Hour 1 tablet Orally Once a day Active Atorvastatin Calcium 40 MG Tablet 1 tablet Orally Once a day Active metFORMIN HCl 500 MG Tablet 1 tablet wit h meals Orally Once a day Active Onglyza 2.5 MG Tablet 1 tablet Orally On ce a day Active Losartan Potassium 50 MG Tablet 1 tablet Orally Once a day Active glipiZIDE 5 MG Tablet 1 tablet Orally On ce a day Active Immunizations Vaccine Route Administration Date Status Comme nts Flu vaccine no Preserv 3 and > Unknown 07/29/2015 Admin istered Social History Social History Additional Details Category Social Info Options Details Miscellaneous: Marital status: Occupation: retired Problems Problem Type SNOMED Code ICD Code Onset Dates Problem Status W/U Status Risk Notes Problem Colon cancer screening (801138687) Colon cancer screening (Z12.11) Active confirmed Problem Long-term current use of insulin (499614291) intermission coordinator current use of insulin (Z79.4) Active confirmed Plan Of Treatment Future Test Test Name Order Date COLONOSCOPY 11/26/2015 Insurance Providers Payer Name Payer Address Payer Phone Subscriber Number Group Number Insured Name Patient Relationship to Insured Coverage Start Date Coverage End Date MEDICARE OF [place] [address] [place] [id number] KOJO GALDAMEZ Self - patient is the insured MEDICAID OF [facility] [address] [place] [address] [id number] KOJO GADLAMEZ Self - patient is the insured Medical (General) History Medical History History ICD Code colonoscopy 12-04-2004 colon polyp hypertension elevated cholesterol coronary disease with [place] and angioplasty diabetes mellitus Denies CVA,Lung disease,renal disease Surgical History Surgery Date(Month/Year) angioplasty
== END 2025-09-16 10:11 | disposition home or self-care (01) ==
LOC: HO.ENCR 09:32
PROVIDERS: PCP Internal Medicine; Visit Provider Registered Nurse Diabetes Educator
DX: E11.65 Type 2 diabetes mellitus with hyperglycemia (principal); Z79.4 Long term (current) use of insulin

== ENCOUNTER → 2025-09-16 09:31 | Outpatient (BNVA) | payer OTHER, SELFPAY | PROVIDERS: PCP Internal Medicine; Visit Provider Registered Nurse Diabetes Educator | DX: E11.65 Type 2 diabetes mellitus with hyperglycemia (principal); Z79.4 Long term (current) use of insulin | CPT/HCPCS: 99211 ==

== ENCOUNTER 2025-10-11 13:40 | Outpatient (AMB) | payer OTHER, SELFPAY ==
[2025-10-11 13:45] VITALS: BP 116/64; PULSE 61; BMI 26.0
--- NOTE | 2025-10-11 13:45 | MHC.OFFVIS ---
Vital Signs 10/11/25 13:45 Height 5 ft 5 in Weight 156 lb 8.451 oz BMI 26.0 BP 116/64 Blood Pressure Location Lt brachial Position Sitting Pulse 61 Pulse Source Pulse Oximeter Intake Visit Reasons: follow up / echo Biofuels Manager Required: Yes Biofuels Manager Services: Biofuels Manager Offered & Declined Biofuels Manager Name: Brennon Accompanied by: Self / Same As Patient Allergies gabapentin Allergy (Mild, Verified 10/11/25 14:05) Itching Medication List - Last Reconciled 10/11/25 by Ash Chavarria NP acetaminophen (Tylenol Extra Strength) 500 mg PO Q6H PRN albuterol sulfate 2.5 mg (3 mL) inhalation Q4-6H PRN amlodipine 5 mg PO DAILY aspirin mg PO atorvastatin 40 mg PO DAILY 90 days blood sugar diagnostic (IdealSeat Verio test strips) test twice per day blood-glucose meter (IdealSeat Verio Flex Start kit) test twice per day blood-glucose sensor (FreeStyle Jarrod 3 Plus Sensor device) Use daily As directed to monitor glucose blood-glucose sensor (FreeStyle Jarrod 3 Sensor device) Apply every 14 days As directed to monitor blood glucose blood-glucose,environmental coordinator,cont (FreeStyle Jarrod 3 [place]) Use daily As directed to monitor blood glucose budesonide-formoterol 80-4.5 mcg/actuation 1 inh inhalation BID 30 days cholecalciferol (vitamin D3) 25 mcg PO DAILY 90 days empagliflozin (Jardiance) 25 mg PO DAILY 90 days fluticasone propionate 110 mcg/actuation (Flovent HFA) 1 puff PO BID 30 days insulin degludec (Tresiba FlexTouch U-200 insulin) 10 units (0.05 mL) subcut DAILY insulin lispro (Humalog KwikPen (U-100) Insulin) 4 units (0.04 mL) subcut TID lancets test twice per day losartan 100 mg PO DAILY 90 days metformin 500 mg PO BID 90 days metoprolol succinate ER 100 mg PO DAILY nebulizers As directed pen needle, diabetic (1st Tier Unifine Pentips) Use 1 pen needle once a da sennosides (Senna Lax) 8.6 mg PO BEDTIME PRN 90 days tirzepatide (Mounjaro) 5 mg (0.5 mL) subcut QWEEK Ventolin HFA 90 mcg/actuation (albuterol sulfate) 2 puffs inhalation Q6H PRN 30 days NS HPI Comments Details: This is a 75-year-old male patient coming in for a follow-up visit. Patient with a history of coronary artery disease with prior PCI to LCX in 1999 and was following Cardiology in [facility] however patient had not seen anybody over 20 years. Patient also with history of hypertension hyperlipidemia and diabetes who was in [facility] for chest pain and underwent a emergent cardiac catheterization on 06/17. Patient underwent PCI to RCA. Patient later was in the hospital again for post UT pericarditis and is now status post completion of colchicine and aspirin taper therapy. Today, patient is reporting feeling well overall without any cardiac symptoms of exertional chest pain, shortness of breath, palpitations, dizziness, orthopnea, PND, leg edema, presyncope or syncope. Patient is reporting compliance with all his medications. Patient is currently going to cardiac rehab and states is tolerating well. 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 Son No problems noted. Son No problems noted. Son No problems noted. Social History Household Members: Spouse Housing: Apartment Are you a primary client care representative to a significant other at home: No Do you presently have visiting nurse or other home services: Yes Alcohol intake: former Patient Tobacco Use Status: Former Tobacco user Tobacco use type: Cigarette e-Cigarette/Vaping Use: Never Used Second Hand Smoke Exposure: No Advance Directives Date on File: 07/30/20 service: No Current occupational status: retired Cognitive needs: No Hearing needs: No Vision needs: Yes (Glasses) Review of Systems Const Denies daytime sleepiness, Denies difficulty sleeping, Denies snoring, Denies stops breathing during sleep and Denies weakness Card Denies chest pain, Denies rapid heart rate, Denies irregular heart rhythm, Denies claudication, Denies leg edema, Denies lightheadedness, Denies palpitations, Denies dyspnea, Denies dyspnea on exertion, Denies orthopnea, Denies paroxysmal nocturnal dyspnea and Denies slow heart rate Resp Denies cough, Denies dyspnea, Denies dyspnea on exertion and Denies snoring GI Reports no additional complaints, Denies hematochezia, Denies change in stool character and Denies dyspepsia Musc Denies abnormal gait, Denies muscle weakness and Denies numbness Neuro Denies abnormal gait, Denies numbness and Denies weakness Endo Denies palpitations Physical Exam Vital Signs: Last Vital Signs Pulse 61 10/11/25 13:45 BP 116/64 10/11/25 13:45 BMI result Body Mass Index 26.0 Const General: cooperative, healthy appearing, comfortable and no acute distress Orientation/consciousness: patient oriented x3 HEENT Head: Yes normal to inspection Neck Neck: Yes normal visual inspection, Yes trachea midline and Yes supple Chest Chest palpation & inspection: normal inspection of the chest Resp Effort & Inspection: normal respiratory effort Auscultation: clear to auscultation bilaterally, no crackles, no rales, no rhonchi and no wheezes Cardio Jugular venous distension: no JVD Palpation: normal PMI Rate: regular rate Rhythm: regular rhythm Heart sounds: S1 normal heart sound present, S2 normal heart sound present, no click, no gallops, no murmurs and no rubs Peripheral pulses: Peripheral pulses 2+ throughout GI Inspection: Yes normal to inspection Palpation (GI): Soft to palpation Auscultation: normal bowel sounds Skin General skin exam: no rashes or lesions noted Neuro General: patient oriented x3 Extrem General: Yes normal to inspection, No no pedal edema and No calf tenderness Psych Appearance: grossly normal Mental Status: mental status grossly normal Speech and movement: Normal speech and movement present Assessment & Plan Assessment & Plan (1) CAD (coronary artery disease): Code(s): I25.10 - Atherosclerotic heart disease of elim ira coronary artery without angina pectoris Category: Medical Plan: 05/2025-patient had an echo at [facility] that showed normal LV systolic function with the ejection fraction at 58%, aortic sclerosis without stenosis and trileaflet aortic valve. 06/12/25-patient underwent cardiac catheterization with Dr. Valencia at [facility] that showed severe stenosis in the mid RCA status post PCI to the RCA, mild diffuse disease in the LAD, mild ISR in the circumflex stent, and moderate disease in the AV groove circumflex. Patient had pericarditis status post UT and has completed high-dose aspirin taper therapy as well as colchicine. Patient currently is doing well without any cardiac symptoms. Continue lifetime baby aspirin therapy. Patient has run out of Plavix and therefore we will refill this to plan to continue for another 8 months. No reported signs of bleeding or falls. Continue cardiac rehab. (2) Coronary angioplasty status: Code(s): Z98.61 - Coronary angioplasty status Category: Surgical Plan: As above. (3) Essential hypertension: Code(s): I10 - Essential (primary) hypertension Category: Medical Plan: Blood pressure today is well-controlled. Continue current regimen. Advised monitoring blood pressures at home with a goal less than 130/80. Advised low-salt diet. (4) Pure hypercholesterolemia: Code(s): E78.00 - Pure hypercholesterolemia, unspecified Category: Medical Plan: Most recent LDL at 60 with an goal of less than 70. Continue statin therapy. (5) Uncontrolled type 2 diabetes mellitus with hyperglycemia, with long-term current use of insulin: Code(s): E11.65 - Type 2 diabetes mellitus with hyperglycemia; Z79.4 - remote computer terminal operator (current) use of insulin Category: Medical Plan: Continue aggressive diabetes management with an A1c goal less than 7%. Followed by endocrinology. Advised on heart healthy diet, regular exercise, med compliance, and aggressive management of vascular risk factors. Follow up in 6 months. In the interim, patient will call us with any concerns or change in symptoms. This note was generated using voice recognition software. While every effort has been made to ensure accuracy and proper device processing engineer, there may be occasional errors that could affect the content or meaning of the described symptoms. Medications: New aspirin (Adult Low Dose Aspirin) 81 mg PO DAILY 90 tabs 3RF clopidogrel 75 mg PO DAILY 90 tabs 3RF Coding Level of Care Code Est Pt Level 4 (78519) Add On Problem Visit Only Diagnoses CAD (coronary artery disease) I25.10 Coronary angioplasty status Z98.61 Essential hypertension I10 Pure hypercholesterolemia E78.00 Uncontrolled type 2 diabetes mellitus with hyperglycemia, with long-term current use of insulin E11.65; Z79.4 Time Spent (min) 32 Comment Time spent in reviewing the chart, test results, assessment, counseling and documentation.
--- OUTSIDE RECORDS SUMMARY | 2025-10-11 15:23 | XMS_ITS | Clinical Summary ---
Author Organization 175 [facility] Address [address] [place] [address] Phone Care Team Providers Care Dental Coordinator Name Role Phone Rose Mary Mcneill MD Primary Care Provider Allergies Active Allergy Reactions Criticality Noted Date [...] 11:00 AM EST Consult Orthopedic Surgery - [address] [address] Yuri Chaney, DONNY Controlled type [...] PM EST Office Visit Orthopedic Surgery - [place] [address] [address] Yuri Chaney, DPDeonna [address] [address] Health Maintenance Due Date Last Done Comments [...] (2 of 2) 08/31/2025 07/06/2025 COVID-19 Vaccine (5 - 2025- season) 2026 07/06/2025, 11/06/2021, 02/14/2021, Additional history [...] patient's age to complete this topic Insurance [facility] [place] [id number] Care Teams Dental Coordinator Relationship Specialty Start Date End Date Rose Mary Mcneill MD [address] [place] [address] , [address] [facility] D/B/A: [facility] [place], [place] PCP - General Internal Medicine 05/22/25
--- OUTSIDE RECORDS SUMMARY | 2025-10-11 15:23 | XMS_ITS | Patient Health Record ---
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 (Z79.4) Active confirmed Plan Of Treatment Future Test Test Name Order Date COLONOSCOPY 11/26/2015 Insurance Providers Payer Name Payer Address Payer Phone Subscriber Number Group Number Insured Name Patient Relationship to Insured Coverage Start Date Coverage End Date MEDICARE OF [place] [address] [place] [id number] KOJO GALDAMEZ Self - patient is the insured MEDICAID OF [facility] [address] [place] [address] [phone] [id number] KOJO GALDAMEZ Self - patient is the insured Medical (General) History Medical History History ICD Code colonoscopy 12-04-2004 colon polyp hypertension elevated cholesterol coronary disease with [place] and angioplasty diabetes mellitus Denies CVA,Lung disease,renal disease Surgical History Surgery Date(Month/Year) angioplasty
--- OUTSIDE RECORDS SUMMARY | 2025-10-11 15:23 | XMS_ITS | Clinical Summary ---
Author Organization [facility] Address [address] [place] [address] Phone Care Team Providers Care Meat Stock Clerk Name Role Phone Rose Mary Jones MD Primary Care Provider [phone] Allergies No known active allergies Medications albuterol [...] patient's age to complete this topic Insurance [facility] ([id number]) [facility] ([id number]) Care Teams Meat Stock Clerk Relationship Specialty Start Date End Date Rose Mary Jones MD [address] [place] PCP - General 11/03/20
== END 2025-10-11 14:27 | disposition home or self-care (01) ==
LOC: HO.HCS 13:40
PROVIDERS: PCP Internal Medicine
DX: I25.10 Atherosclerotic heart disease of native coronary artery without angina pectoris (principal); Z98.61 Coronary angioplasty status; I10 Essential (primary) hypertension; E78.00 Pure hypercholesterolemia, unspecified; E11.65 Type 2 diabetes mellitus with hyperglycemia; Z79.4 Long term (current) use of insulin
CPT/HCPCS: 99214; G2211

== ENCOUNTER → 2025-10-11 13:40 | Outpatient (BNVA) | payer OTHER, SELFPAY | PROVIDERS: PCP Internal Medicine | DX: I25.10 Atherosclerotic heart disease of native coronary artery without angina pectoris (principal); Z98.61 Coronary angioplasty status; Z87.891 Personal history of nicotine dependence; I10 Essential (primary) hypertension; E11.65 Type 2 diabetes mellitus with hyperglycemia; E78.00 Pure hypercholesterolemia, unspecified; Z79.4 Long term (current) use of insulin; Z79.01 Long term (current) use of anticoagulants; Z79.85 Long-term (current) use of injectable non-insulin antidiabetic drugs | CPT/HCPCS: 99212 ==